=== PATIENT | male | born 1955 | race American Indian/Alaskan Native ===

== ENCOUNTER 2018-05-25 16:59 | Emergency (ER) | payer OTHER ==
[~2018-05-25] VITALS: Ht 180.3 cm; Wt 104.3 kg
--- OUTSIDE RECORDS SUMMARY | ~2018-05-25 | XMS | Encounter Summary ---
Demographics + + + | Address | [address] | | | [place] [address] | + + + | Home Phone | | + + + | Preferred Language | Unknown | + + + | Marital Status | Single | + + + | Confucianism Affiliation | Unknown | + + + | Race | Unknown | + + + | Ethnic Group | Unknown | + + + Author + + + | Author | [facility] | | | and Ljana | + + + | Organization | [facility] | | | and Ljana | + + + | Address | Unknown | + + + | Phone | Unavailable | + + + Support + + +---------+ + | Name | Relationship | Address | Phone | + + +---------+ + | Annelise Holcomb | ECON | Unknown | | + + +---------+ + Care Team Providers + +------+ + | Care Boat Diesel Motor Mechanic Name | Role | Phone | + +------+ + | Orly Villavicencio MD | PCP | | + +------+ + Encounter Details +--------+ + + + + | Date | Type | Department | Care Team | Description | +--------+ + + + + | 05/12/ | [facility] | [facility] | Orly Villavicencio | Chronic hepatitis C | | 2018 | Encounter | [facility] | [address] | without hepatic coma | | | | [address] [place] | [address] [place] | ([facility]); Alcoholism | | | | [place], [place] | [place] [address] | ([facility]); Ascites due | | | | [address] | [phone] | to alcoholic | | | | [phone] | | hepatitis | +--------+ + + + + Social [...] + +---------+ + | Alcohol Use | Drinks/We | oz/Week | Comments | | | ek | | | + + +---------+ + | Yes | 126 | 75.6 | quit since 04/06/15 | | | Cans of | | | | | beer | | | + + +---------+ + + + + | Sex Assigned at | Date Recorded | | | | + + + | Not on file | | + + + as of this encounter Medications at Time of Discharge + + + +---------+ + + | Medication | Sig. | Disp. | Refills | Start | End Date | | | | | | Date | | + + + +---------+ + + | furosemide (LASIX) | Take 1 tablet by | 60 | 1 | 05/12/20 | | | 40 mg tablet | mouth 2 times daily. | tablet | | 18 | | | | 2 tablets in the | | | | | | | morning. | | | | | + + + +---------+ + + | Lactulose 20 | Take 20 g by mouth 3 | 2000 mL | 1 | 05/02/20 | | | GM/30ML SOLN | times daily. or | | | 18 | | | | more to produce 2-3 | | | | | | | soft stools a day. | | | | | + + + +---------+ + + | LORazepam (ATIVAN) | take 1 tablet by | 20 | 0 | 04/17/20 | | | 1 mg tablet | mouth every 6 hours | tablet | | 18 | | | | if needed for | | | | | | | anxiety | | | | | + + + +---------+ + + | spironolactone | Take 1 tablet by | 90 | 0 | 05/12/20 | | | (ALDACTONE) 100 MG | mouth Daily. | tablet | | 18 | | | tablet | | | | | | + + + +---------+ + + as of this encounter Plan of Treatment +--------+---------+ + + + | Date | Type | Specialty | Care Team | Description | +--------+---------+ + + + | 06/01/ | Office | Internal Medicine | Orly Villavicencio | | | 2018 | Visit | | [address] | | | | | | [address] | | | | | | [place] [address] | | | | | | [phone] | | | | | | | | +--------+---------+ + + + as of this encounter Procedures + +--------+ + + + | Procedure Name | Priori | Date/Time | Associated Diagnosis | Comments | | | ty | | | | + +--------+ + + + | US ABDOMEN COMPLETE | Routin | 05/12/2018 | Chronic hepatitis | Results for this | | | e | 1242 PDT | C without hepatic | procedure are in the | | | | | coma (HCC) | results section. | | | | | Alcoholism (HCC) | | | | | | Ascites due to | | | | | | alcoholic hepatitis | | + +--------+ + + + in this encounter Results US Abdomen Complete (05/12/2018 1242) + + + | Narrative | Performed At | + + + | US ABDOMEN COMPLETE 05/12/2018 12:08 PM HISTORY: Alcoholic | [facility] | | hepatitis, ascites. COMPARISON: None. PROTOCOL: Trejo scale and | | | Doppler images of the abdomen. FINDINGS: Gallbladder: There is | | | no evidence for gallstones. The gallbladder wall measures 4.2 mm, | | | which is mildly thickened. Sonographic Sifuentes's sign is absent. The | | | common bile duct measures 3.8 mm, normal. Liver: There is | | | lobulated contour suggestive of cirrhosis. The right hepatic lobe | | | measures 17.3 cm, which is mildly enlarged. Pancreas: Not well | | | seen. Aorta: There is a normal appearance. This measures up to 3.3 | | | cm, which is mildly aneurysmal. Spleen: Parenchyma is normal. | | | The spleen measures 19.6 cm, which is enlarged. Right kidney: | | | Echotexture is normal with no evidence for stone or hydronephrosis. | | | The kidney measures 12.8 x 6.1 x 6.2 cm. Left kidney: Echotexture | | | is normal with no evidence for stone or hydronephrosis. The kidney | | | measures 11.6 x 7.5 x 6.1 cm. Venous structures: There is normal | | | color flow in the IVC, portal veins, hepatic veins, and splenic vein. | | | The main portal vein measures 1.1 cm, which is normal. There is a | | | small amount of scattered ascites. Partially imaged is a left pleural | | | effusion. IMPRESSION - Cirrhotic appearing liver that is mildly | | | enlarged. Splenomegaly likely phlebotomy services representative of portal venous | | | hypertension. Small ascites and partially imaged left pleural | | | effusion. Mild aneurysm of abdominal aorta measuring 3.3 cm. This | | | can be followed with ultrasound as clinically indicated. Mild | | | thickening involving gallbladder wall likely due to edema. | | | Dictated and Signed by: Brian Xavier MD Electronically signed: | | | 05/12/2018 2:07 PM | | + + + + + | Procedure Note | + + | Keegan, Rad Results In - 05/12/2018 1410 PDT US ABDOMEN COMPLETE 05/12/2018 12:08 PM | | | | HISTORY: Alcoholic hepatitis, ascites. | | | | COMPARISON: None. | | | | PROTOCOL: Trejo scale and Doppler images of the abdomen. | | | | FINDINGS: | | Gallbladder: There is no evidence for gallstones. The gallbladder wall measures | | 4.2 mm, which is mildly thickened. | | Sonographic Sifuentes's sign is absent. | | The common bile duct measures 3.8 mm, normal. | | | | Liver: There is lobulated contour suggestive of cirrhosis. The right hepatic | | lobe measures 17.3 cm, which is mildly enlarged. | | | | Pancreas: Not well seen. | | | | Aorta: There is a normal appearance. This measures up to 3.3 cm, which is mildly | | aneurysmal. | | | | Spleen: Parenchyma is normal. The spleen measures 19.6 cm, which is enlarged. | | | | Right kidney: Echotexture is normal with no evidence for stone or | | hydronephrosis. The kidney measures 12.8 x 6.1 x 6.2 cm. | | | | Left kidney: Echotexture is normal with no evidence for stone or hydronephrosis. | | The kidney measures 11.6 x 7.5 x 6.1 cm. | | | | Venous structures: There is normal color flow in the IVC, portal veins, hepatic | | veins, and splenic vein. The main portal vein measures 1.1 cm, which is normal. | | | | There is a small amount of scattered ascites. Partially imaged is a left pleural | | effusion. | | | | IMPRESSION - | | Cirrhotic appearing liver that is mildly enlarged. | | | | Splenomegaly likely phlebotomy services representative of portal venous hypertension. | | | | Small ascites and partially imaged left pleural effusion. 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 This can be followed with | | ultrasound as clinically indicated. | | | | Mild thickening involving gallbladder wall likely due to edema. | | | | Dictated and Signed by: Brian Xavier MD | | Electronically signed: 05/12/2018 2:07 PM | + + + +---------+ + + | Performing | Address | City/State/Zipcode | Phone Number | | Organization | | | | + +---------+ + + | [facility] | | | | + +---------+ + + in this encounter Visit Diagnoses + + | Diagnosis | + + | Chronic hepatitis C without hepatic coma (HCC) | + + | Alcoholism (HCC) | + + | Other and unspecified alcohol dependence, unspecified drinking behavior | + + | Ascites due to alcoholic hepatitis | + +"
--- OUTSIDE RECORDS SUMMARY | ~2018-05-25 | XMS | Encounter Summary ---
Demographics + + + | Address | [address] | | | [place] [address] | + + + | Home Phone | | + + + | Preferred Language | Unknown | + + + | Marital Status | Single | + + + | Yazdanism Affiliation | Unknown | + + + | Race | Unknown | + + + | Ethnic Group | Unknown | + + + Author + + + | Author | [facility] | | | and [place]jana | + + + | Organization | [facility] | | | [...] Team Providers + +------+ + | Care Biomass Power Plant Superintendent Name | Role | Phone | + +------+ + | Orly Villavicencio MD | PCP | | + +------+ + Reason for Visit +---------+ + | Reason | Comments | +---------+ + | Results | | +---------+ + Encounter Details +--------+ + + + + | Date | Type | Department | Care Team | Description | +--------+ + + + + | 05/02/ | Telephone | [facility] | Orly Villavicencio | Results | | 2018 | | [address] | [address] | | | | | [address] | [address] [place] | | | | | [place] [address] | [place] [address] | | | | | [phone] | [phone] | | | | | | | [...] + + + as of this encounter Plan of Treatment +--------+---------+ + + + | Date | Type | Specialty | Care Team | Description | +--------+---------+ + + + | 06/01/ | Office | Internal Medicine | Orly Villavicencio | | | 2017 | Visit | | [address] | | | | | | [address] | | | | | | [place] [address] | | | | | | [phone] | | | | | | | | +--------+---------+ + + + as of this encounter Results Comprehensive Metabolic Panel (05/12/2018 1322) + + + + + | Component | Value | Ref Range | Performed At | + + + + + | NA | 131 (L) | 136 - 149 mmol/L | [facility] | | | | | [facility] | | | | | CENTER - | | | | | LABORATORY | + + + + + | K | 3.2 (L) | 3.5 - 5.1 mmol/L | [facility] | | | | | [facility] | | | | | [facility] - | | | | | LABORATORY | + + + + + | CL | 93 (L) | 98 - 109 mmol/L | [facility] | | | | | [facility] | | | | | [facility] - | | | | | LABORATORY | + + + + + | CO2 | 30 | 24 - 31 mmol/L | [facility] | | | | | [facility] | | | | | [facility] - | | | | | LABORATORY | + + + + + | ANION GAP | 8 | 3 - 16 mmol/L | [facility] | | | | | [facility] | | | | | [facility] - | | | | | LABORATORY | + + + + + | GLUCOSE | 161 (H) | 70 - 109 mg/dL | [facility] | | | | | [facility] | | | | | [facility] - | | | | | LABORATORY | + + + + + | BUN | 4 (L) | 7 - 18 mg/dL | [facility] | | | | | [facility] | | | | | [facility] - | | | | | LABORATORY | + + + + + | Creatinine, | 0.90 | 0.60 - 1.30 mg/dL | [facility] | | Serum/Plasma | | | [facility] | | | | | C[facility] - | | | | | LABORATORY | + + + + + | eGFR if not | >60Comment: GLOMERULAR | >=60 mL/min/1.73m2 | [facility] | | [place] | FILTRATION | | [facility] | | | RATE,ESTIMATED mL/min | | CENTER - | | | /[id number] than 60 | | LABORATORY | | | Chronic kidney | | | | | disease,if found over a | | | | | 3-month period.Less than | | | | | 15 Kidney | | | | | failureFor | | | | | Americans,multiply the | | | | | calculated GFR by 1.21. | | | | | | | | + + + + + | CALCIUM | 8.3 | 8.3 - 10.5 mg/dL | [facility] | | | | | [facility] | | | | | CENTER - | | | | | LABORATORY | + + + + + | ALBUMIN | 2.6 (L) | 3.2 - 5.0 g/dL | [facility] | | | | | [facility] | | | | | CENTER - | | | | | LABORATORY | + + + + + | Bilirubin Total | 4.6 (H) | 0.1 - 1.5 mg/dL | [facility] | | | | | [facility] | | | | | [facility] - | | | | | LABORATORY | + + + + + | Total protein | 9.0 (H) | 6.0 - 7.8 g/dL | [facility] | | | | | [facility] | | | | | [facility] - | | | | | LABORATORY | + + + + + | AST | 100 (H) | 10 - 42 U/L | [facility] | | | | | [facility] | | | | | [facility] - | | | | | LABORATORY | + + + + + | ALT | 47 (H) | 6 - 45 U/L | [facility] | | | | | [facility] | | | | | [facility] - | | | | | LABORATORY | + + + + + | ALK PHOS | 75 | 40 - 110 U/L | [facility] | | | | | [facility] | | | | | [facility] - | | | | | LABORATORY | + + + + + | GLOBULIN | 6.4 (H) | 2.1 - 3.8 g/dL | [facility] | | | | | [facility] | | | | | [facility] - | | | | | LABORATORY | + + + + + | Albumin/Globulin | 0.4 (L) | 0.8 - 2.0 | [facility] | | ratio | | | [facility] | | | | | [facility] - | | | | | LABORATORY | + + + + + | BUN/CREA | 4.4 | | [facility] | | | | | [facility] | | | | | [facility] - | | | | | LABORATORY | + + + + + + + | Specimen | + + | Blood | + + + + + + + | Performing | Address | City/State/Zipcode | Phone Number | | Organization | | | | + + + + + | [facility] | [address] | [place], [place] | [phone] | | [facility] | | [address] | | | - LABORATORY | | | | + + + + + | [facility] | [address] | [place], [place] | | | [facility] | | [address] | | | - LABORATORY | | | | + + + + + in this encounter Visit Diagnoses + + | Diagnosis | + + | Chronic hepatitis C without hepatic coma (HCC) - Primary | + +"
--- OUTSIDE RECORDS SUMMARY | ~2018-05-25 | XMS | Encounter Summary ---
Demographics + + + | Address | [address] | | | [place] [address] | + + + | Home Phone | | + + + | Preferred Language | Unknown | + + + | Marital Status | Single | + + + | Buddhism Affiliation | Unknown | + + + | Race | Unknown | + + + | Ethnic Group | Unknown | + + + Author + + + | Author | [facility] | | | and [place]jana | + + + | Organization | [facility] | | | and [...] Team Providers + +------+ + | Care Kettle Hand Name | Role | Phone | + +------+ + | Orly Villavicencio MD | PCP | | + +------+ + Reason for Visit + + + | Reason | Comments | + + + | Appointment | | + + + Encounter Details +--------+ + + + + | Date | Type | Department | Care Team | Description | +--------+ + + + + | 05/02/ | Telephone | [facility] | Orly Villavicencio | Appointment | | 2017 | | [address] | [address] | | | | | [address] [place] | [address] [place] | | | | | [place] [address] | [place] [address] | | | | | [phone] | | | | | | | [...] | | | | | [place] [address] | | | | | | [phone] | | | | | | | | +--------+---------+ + + + as of this encounter Visit Diagnoses Not on filein this encounter"
--- OUTSIDE RECORDS SUMMARY | ~2018-05-25 | XMS | Clinical Summary ---
Demographics + + + | Address | [address] | | | [place] [address] | + + + | Home Phone | | + + + | Preferred Language | Unknown | + + + | Marital Status | Single | + + + | Gnosticist Affiliation | Unknown | + + + | Race | Unknown | + + + | Ethnic Group | Unknown | + + + Author + + + | Author | [facility] | | | and Ljana | + + + | Organization | [facility] | | | [...] Team Providers + +------+ + | Care Reel Slitter Name | Role | Phone | + +------+ + | Orly Villavicencio MD | PP | | + +------+ + Allergies No Known Allergies Current Medications + + + +---------+------+------+-------+ | Prescription | Sig. | Disp. | Refills | Star | End | Statu | | | | | | t | Date | s | | | | | | Date | | | + + + +---------+------+------+-------+ | LORazepam (ATIVAN) | take 1 tablet by | 20 | 0 | 08/2 | | Activ | | 1 mg tablet | mouth every 6 hours | tablet | | 7/20 | | e | | | if needed for | | | 18 | | | | | anxiety | | | | | | + + + +---------+------+------+-------+ | Lactulose 20 | Take 20 g by mouth 3 | 2000 mL | 1 | 04/22 | | Activ | | GM/30ML SOLN | times daily. or | | | /20 | | e | | | more to produce 2-3 | | | 18 | | | | | soft stools a day. | | | | | | + + + +---------+------+------+-------+ | spironolactone | Take 1 tablet by | 90 | 0 | 09/2 | | Activ | | (ALDACTONE) 100 MG | mouth Daily. | tablet | | 1/20 | | e | | tablet | | | | 18 | | | + + + +---------+------+------+-------+ | furosemide (LASIX) | Take 1 tablet by | 60 | 1 | 09/2 | | Activ | | 40 mg tablet | mouth 2 times daily. | tablet | | 1/20 | | e | | | 2 tablets in the | | | 18 | | | | | morning. | | | | | | + + + +---------+------+------+-------+ | triamcinolone | Apply thin film to | 28.4 g | 2 | 08/0 | 09/1 | Disco | | (KENALOG) 0.1% cream | affected area(s) | | | 3/20 | 1/20 | ntinu | | | three times daily | | | 16 | 18 | ed | | | for 2 weeks. Avoid | | | | | | | | face and groin areas | | | | | | + + + +---------+------+------+-------+ | Lactulose 20 | Take 20 g by mouth 3 | 2000 mL | 1 | 04/1 | 04/22 | Disco | | GM/30ML SOLN | times daily. or | | | 7/20 | 1/20 | ntinu | | | more to produce 2-3 | | | 18 | 18 | ed | | | soft stools a day. | | | | | | + + + +---------+------+------+-------+ | escitalopram | Take 1 tablet by | 30 | 0 | 08/2 | 04/22 | Disco | | (LEXAPRO) 20 mg | mouth Daily. | tablet | | /20 | 20 | ntinu | | tablet | | | | 18 | 18 | ed | + + + +---------+------+------+-------+ | furosemide (LASIX) | Take 1 tablet by | 30 | 1 | 03/23 | 04/22 | Disco | | 40 mg tablet | mouth Daily. | tablet | | 03/10 | 09/10 | ntinu | | | | | | 18 | 18 | ed | + + + +---------+------+------+-------+ | potassium chloride | Take 1 tablet by | 30 | 1 | 03/23 | 04/22 | Disco | | (KLOR-CON M20) 20 | mouth Daily. | tablet | | 03/10 | 09/10 | ntinu | | mEq ER tablet | | | | 18 | 18 | ed | + + + +---------+------+------+-------+ | furosemide (LASIX) | Take 1 tablet by | 30 | 1 | 04/22 | 04/22 | Disco | | 40 mg tablet | mouth Daily. | tablet | | 09/10 | 09/10 | ntinu | | | | | | 18 | 18 | ed | + + + +---------+------+------+-------+ | potassium chloride | Take 1 tablet by | 30 | 1 | 04/22 | 04/22 | Disco | | (KLOR-CON M20) 20 | mouth Daily. | tablet | | /20 | /20 | ntinu | | mEq ER tablet | | | | 18 | 18 | ed | + + + +---------+------+------+-------+ | furosemide (LASIX) | 2 tablets in the | 60 | 1 | 04/22 | 04/23 | Disco | | 40 mg tablet | morning. | tablet | | /20 | /20 | ntinu | | | | | | 18 | 18 | ed | + + + +---------+------+------+-------+ | spironolactone | Take 1 tablet by | 30 | 1 | 04/22 | 04/23 | Disco | | (ALDACTONE) 50 mg | mouth Daily. | tablet | | /20 | 1/20 | ntinu | | tablet | | | | 18 | 18 | ed | + + + +---------+------+------+-------+ Active Problems + + + | Problem | Noted Date | + + + | Chronic hepatitis C without hepatic coma (HCC) | 10/03/2017 | + + + | Alcoholic hepatitis without ascites | 04/28/2015 | + + + | Drug use | 04/28/2015 | + + + | Elevated LFTs | 04/28/2015 | + + + Encounters +--------+ + + + + | Date | Type | Specialty | Care Team | Description | +--------+ + + + + | 05/12/ | Hospital | | Orly Villavicencio | Chronic hepatitis C | | 2017 | Encounter | | MD Shimon | without hepatic coma | | | | | | (HCC); Alcoholism | | | | | | (HCC); Ascites due | | | | | | to alcoholic | | | | | | hepatitis | +--------+ + + + + | 05/12/ | Telephone | | Orly Villavicencio | Results | | 2017 | | | MD Shimon | | +--------+ + + + + | 05/02/ | Office | | Orly Villavicencio | Alcoholism (HCC) | | 2017 | Visit | | MD Shimon | (Primary Dx); | | | | | | Chronic hepatitis C | | | | | | without hepatic coma | | | | | | (HCC); Depression, | | | | | | unspecified | | | | | | depression type; | | | | | | Ascites due to | | | | | | alcoholic hepatitis | +--------+ + + + + | 05/02/ | Telephone | | Orly Villavicencio | Appointment | | 2017 | | | MD Shimon | | +--------+ + + + + | 05/02/ | Telephone | | Orly Villavicencio | Results | | 2017 | | | MD Shimon | | +--------+ + + + + | 04/12/ | Refill | | Orly Villavicencio | Medication Refill | | 2017 | | | MD Shimon | | [...] Filed Vital Signs + + + + | Vital Sign | Reading | Time Taken | + + + + | Blood Pressure | 140/76 | 05/02/2018835 PDT | + + + + | Pulse | 82 | 05/02/2018835 PDT | + + + + | Temperature | 37.1 C (98.7 F) | 05/02/2018835 PDT | + + + + | Respiratory Rate | 18 | 05/02/2018835 PDT | + + + + | Oxygen Saturation | 94% | 05/02/2018835 PDT | + + + + | Inhaled Oxygen | - | - | | Concentration | | | + + + + | Weight | 119.9 kg (264 lb 5.3 | 05/02/2018835 PDT | | | oz) | | + + + + | Height | 180.3 cm (5' 10.98") | 09/30/2017 1626 PST | + + + + | Body Mass Index | 36.89 | 05/02/2018835 PDT | + + + + Plan of Treatment +--------+---------+ + + + | Date | Type | Specialty | Care Team | Description | +--------+---------+ + + + | 06/01/ | Office | | Orly Villavicencio | | | 2017 | Visit | | MD [address] | | | | | | [address] | | | | | | [place] [address] | | | | | | [phone] | | | | | | | | +--------+---------+ + + + + + + + + | Health Maintenance | Due Date | Last Done | Comments | + + + + + | Vaccine: | | | | | Dtap/Tdap/Td (1 - | 7 | | | | Tdap) | | | | + + + + + | Vaccine: | | | | | Pneumococcal 19-64 | 7 | | | | (PPSV23 only) Medium | | | | | Risk (1 of 1 - | | | | | PPSV23) | | | | + + + + + | Colorectal Cancer | | | | | Screening | 8 | | | | (Colonoscopy) | | | | + + + + + | Vaccine: Zoster (1 | | | | | of 2) | 8 | | | + + + + + | Vaccine: Influenza | 09/01/201 | | | | (#1) | 8 | | | + + + + + | Hepatitis C | Completed | 05/12/2018, 05/12/2018, | | | Screening | | 05/02/2018, Additional history | | | | | exists | | + + + + + Procedures + +--------+ + + + | Procedure Name | Priori | Date/Time | Associated Diagnosis | Comments | | | ty | | | | + +--------+ + + + | COMPREHENSIVE | Routin | 05/12/2018 | Chronic hepatitis | Results for this | | METABOLIC PANEL | e | 1322 PDT | C without hepatic | procedure are in the | | | | | coma (HCC) | results section. | + +--------+ + [...] | + +--------+ + + + | AMMONIA | Routin | 05/02/2018 | Chronic hepatitis | Results for this | | | e | 0928 PDT | C without hepatic | procedure are in the | | | | | coma (HCC) | results section. | + +--------+ + + + | PROTIME INR | Routin | 05/02/2018 | Chronic hepatitis | Results for this | | | e | 0928 PDT | C without hepatic | procedure are in the | | | | | coma (HCC) | results section. | + +--------+ + + + | COMPREHENSIVE | Routin | 05/02/2018 | Chronic hepatitis | Results for this | | METABOLIC PANEL | e | 0928 PDT | C without hepatic | procedure are in the | | | | | coma (HCC) | results section. | + +--------+ + + + | CBC WITH | Routin | 05/02/2018 | Chronic hepatitis | Results for this | | DIFFERENTIAL | e | 0928 PDT | C without hepatic | procedure are in the | | | | | coma (HCC) | results section. | + +--------+ + + + from Last 3 Months Results Comprehensive Metabolic Panel (05/12/2018 1322)Only the most recent of 2 results within the time period is included. + + + + + | Component | Value | Ref Range | Performed At | + + + + + | NA | 131 (L) | 136 - 149 mmol/L | [facility] | | | [...] | >60Comment: GLOMERULAR | >=60 mL/min/1.73m2 | [facility] | | IV[place]IAN | FILTRATION | | [facility] | | | RATE,ESTIMATED mL/min | | CENTER - | | | /1.13w1Jlqr than 60 | | LABORATORY | | [...] 8.3 | 8.3 - 10.5 mg/dL | [facility] | | | | | [facility] | | | | | CENTER - | | | | | LABORATORY | + + + + + | ALBUMIN | 2.6 (L) | 3.2 - 5.0 g/dL | [facility] | | | [...] 75 | 40 - 110 U/L | [facility] | | | | | [facility] | | | | | CENTER - | | | | | LABORATORY | + + + + + | GLOBULIN | 6.4 (H) | 2.1 - 3.8 g/dL | [facility] | | | | | [facility] [...] + | BUN/CREA | 4.4 | | [facility] | | | | [facility] | | | | | CENTER - | | | | | LABORATORY | + + + + + + + | Specimen | + + | Blood | + + + + + + + | Performing | Address | City/State/Zipcode | Phone Number | | Organization | | | | + + + + + | [facility] | [address] | [place] | [phone] | | [facility] | | [address] | | | - LABORATORY | | | | + + + + + | [facility] | [address] | [place], [place] | | | [facility] | | [address] | | | - LABORATORY | | | | + + + + + US Abdomen Complete (05/12/2018 1242) + + [...] mildly | | | enlarged. Splenomegaly likely patient relations representative of portal venous | | | [...] enlarged. | | | | Splenomegaly likely patient relations representative of portal venous hypertension. | | [...] | | | + +---------+ + + Protime INR (05/02/2018 0928) + + + + + | Component | Value | Ref Range | Performed At | + + + + + | Protime | 16.6 (H) | 11.3 - 13.9 seconds | [facility] | | | | | [facility] | | | | | CENTER - | | | | | LABORATORY | + + + + + | INR | 1.36 (H)Comment: Usual | 0.90 - 1.10 | [facility] | | | Oral Anticoagulation | | [facility] | | | Range: 2.0 - | | CENTER - | | | 3.0High Level Oral | | LABORATORY | | | Anticoagulation Range: | | | | | 2.5 - 3.5 | | | + + + + + + + | Specimen | + + | Blood | + + + + + + + | Performing | Address | City/State/Zipcode | Phone Number | | Organization | | | | + + + + + | [facility] | [address] | [place] | [phone] | | [facility] | | [address] | | | - LABORATORY | | | | + + + + + | [facility] | [address] | [place] | | | [facility] | | [address] | | | - LABORATORY | | | | + + + + + CBC with Differential (05/02/2018927) + + + + + | Component | Value | Ref Range | Performed At | + + + + + | WBC | 4.8 | 4.0 - 11.0 K/uL | [facility] | | | | | [facility] | | | | | CENTER - | | | | | LABORATORY | + + + + + | RBC | 4.63 | 4.30 - 5.70 M/uL | [facility] | | | | | [facility] | | | | | CENTER - | | | | | LABORATORY | + + + + + | Hgb | 15.8 | 13.5 - 18.0 g/dL | [facility] | | | | | [facility] | | | | | CENTER - | | | | | LABORATORY | + + + + + | Hct | 45.4 | 40.0 - 51.0 % | [facility] | | | | | [facility] | | | | | CENTER - | | | | | LABORATORY | + + + + + | MCV | 98.1 | 83.0 - 101.0 fL | [facility] | | | | | [facility] | | | | | CENTER - | | | | | LABORATORY | + + + + + | MCH | 34.1 | 28.0 - 35.0 pg | [facility] | | | | | [facility] | | | | | CENTER - | | | | | LABORATORY | + + + + + | MCHC | 34.7 | 32.0 - 36.0 g/dL | [facility] | | | | | [facility] | | | | | CENTER - | | | | | LABORATORY | + + + + + | RDW-CV | 15.4 (H) | <15.0 % | [facility] | | | | | [facility] | | | | | CENTER - | | | | | LABORATORY | + + + + + | Platelet Count | 106 (L) | 140 - 440 K/uL | [facility] | | | | | [facility] | | | | | CENTER - | | | | | LABORATORY | + + + + + | MPV | 7.7 | fL | [facility] | | | | | [facility] | | | | | CENTER - | | | | | LABORATORY | + + + + + | % Neutrophils | 54.9 | 45.0 - 82.0 % | [facility] | | | | | [facility] | | | | | CENTER - | | | | | LABORATORY | + + + + + | % Lymphocytes | 23.2 | 20.0 - 45.0 % | [facility] | | | | | [facility] | | | | | CENTER - | | | | | LABORATORY | + + + + + | % Monocytes | 18.9 (H) | 4.0 - 12.0 % | [facility] | | | | | [facility] | | | | | CENTER - | | | | | LABORATORY | + + + + + | % Eosinophils | 2.1 | 0.0 - 5.0 % | [facility] | | | | | [facility] | | | | | CENTER - | | | | | LABORATORY | + + + + + | % Basophils | 0.9 | 0.0 - 1.0 % | [facility] | | | | | [facility] | | | | | CENTER - | | | | | LABORATORY | + + + + + | Absolute Neutrophils | 2.70 | 1.80 - 8.50 K/uL | [facility] | | | | | [facility] | | | | | CENTER - | | | | | LABORATORY | + + + + + | Absolute Lymphocytes | 1.10 | 0.60 - 3.20 K/uL | [facility] | | | | | [facility] | | | | | CENTER - | | | | | LABORATORY | + + + + + | Absolute Monocytes | 0.90 | 0.00 - 1.00 K/uL | [facility] | | | | | [facility] | | | | | CENTER - | | | | | LABORATORY | + + + + + | Absolute Eosinophils | 0.10 | 0.00 - 0.40 K/uL | [facility] | | | | | [facility] | | | | | CENTER - | | | | | LABORATORY | + + + + + | Absolute Basophils | 0.00 | 0.00 - 0.10 K/uL | [facility] | | | | [...] + | [facility] | [address] | [place] | [phone] | | [facility] | | [address] | | | - LABORATORY | | | | + + + + + | [facility] | [address] | [place] | | | [facility] | | [address] | | | - LABORATORY | | | | + + + + + Ammonia (05/02/2018927) + +--------+ + + | Component | Value | Ref Range | Performed At | + +--------+ + + | Ammonia | 41 (H) | 11 - 35 umol/L | [facility] | | | | | [facility] | | | | | CENTER - | | | | | LABORATORY | + +--------+ + + + + | Specimen | + + | Blood | + + + + + + + | Performing | Address | City/State/Zipcode | Phone Number | | Organization | | | | + + + + + | [facility] | [address] | [place] | [phone] | | [facility] | | [address] | | | - LABORATORY | | | | + + + + + | [facility] | [address] | [place], [place] | | | [facility] | | [address] | | | - LABORATORY | | | | + + + + + from Last 3 Months Insurance + +--------+ +--------+ +---------+ | Payer | Benefi | Subscriber | Type | Phone | Address | | | t Plan | ID | | | | | | / | | | | | | | Group | | | | | + +--------+ +--------+ +---------+ | [place] | MEDICA | [id number] | Medica | [phone] | | | [place] | | id | [id number] | | | | PLUS | | | | | + +--------+ +--------+ +---------+ + +--------+ +--------+ + + | Guarantor Name | Accoun | Relation to | Date | Phone | Billing Address | | | t Type | Patient | of | | | | | | | | | | + +--------+ +--------+ + + | HOSSEIN [facility]OL[facility] | Person | Self [birth year] | Home: | [address] | | [place] | [place] | | [phone] [place] [address] | | | alex | | | [phone] | | + +--------+ +--------+ + +
--- OUTSIDE RECORDS SUMMARY | ~2018-05-25 | XMS | Encounter Summary ---
Demographics + + + | Address | [address] | | | [place] [address] | + + + | Home Phone | | + + + | Preferred Language | Unknown | + + + | Marital Status | Single | + + + | Restorationism Affiliation | Unknown | + + + | Race | Unknown | + + + | Ethnic Group | Unknown | + + + Author + + + | Author | [facility] | | | and Ljana | + + + | Organization | [facility] | | | [...] Team Providers + +------+ + | Care Armature Repairer Name | Role | Phone | [...] + + | 05/12/ | Telephone | [facility] | Orly Villavicencio | Results | | 2017 | | [address] | [address] | | | | | [address] | [address] [place] | | | | | [place] [address] | [place] [address] | | | | | [phone] | | | | | | | [...] | | | | | | [address] | | | | | | [place] [address] | | | | | | [phone] | | | | | | | | +--------+---------+ + + + + +--------+ + + | Name | Priori | Associated Diagnoses | Order Schedule | | | ty | | | + +--------+ + + | Comprehensive Metabolic Panel | Routin | Hepatic cirrhosis, | 1 Occurrences | | | e | unspecified hepatic | starting 05/12/2018 | | | | cirrhosis type, | until 05/13/2019 | | | | unspecified whether | | | | | ascites present | | | | | (HCC) | | + +--------+ + + | XR Chest PA and Lateral | Routin | Hepatic cirrhosis, | Expected: | | | e | unspecified hepatic | 05/12/2018, Expires: | | | | cirrhosis type, | 05/12/2019 | | | | unspecified whether | | | | | ascites present | | | | | (HCC) | | + +--------+ + + | Alpha Fetoprotein, Tumor Marker | Routin | Hepatic cirrhosis, | 1 Occurrences | | | e | unspecified hepatic | starting 05/12/2018 | | | | cirrhosis type, | until 05/12/2019 | | | | unspecified whether | | | | | ascites present | | | | | (HCC) | | + +--------+ + + as of this encounter Visit Diagnoses + + | Diagnosis | + + | Hepatic cirrhosis, unspecified hepatic cirrhosis type, unspecified whether ascites | | present (HCC) - Primary | + +"
--- OUTSIDE RECORDS SUMMARY | ~2018-05-25 | XMS | Encounter Summary ---
Demographics + + + | Address | [address] | | | [place] [address] | + + + | Home Phone | | + + + | Preferred Language | Unknown | + + + | Marital Status | Single | + + + | Sikh Affiliation | Unknown | + + + | Race | Unknown | + + + | Ethnic Group | Unknown | + + + Author + + + | Author | [facility] | | | and Ljana | + + + | Organization | [facility] | | [...] Team Providers + +------+ + | Care Stapler Coil Unit Name | Role | Phone | + [...] + | 04/12/ | Refill | [facility] | Orly Villavicencio | Medication Refill | | 2017 | | [address] | [address] | | | | | [place] | [address] [facility] | | | | | [place] [address] | [place] [address] | | | | | [phone] | [phone] | | | | | | | [...] | | | | | [place] [address] | | | | | | [phone] | | | | | | | | +--------+---------+ + + + as of this encounter Visit Diagnoses Not on filein this encounter"
--- OUTSIDE RECORDS SUMMARY | ~2018-05-25 | XMS | Encounter Summary ---
Demographics + + + | Address | [address] | | | [place] [address] | + + + | Home Phone [...] Team Providers + +------+ + | Care Floor Polisher Name | Role | Phone | + [...] + | 05/02/ | Telephone | [facility] | Orly Villavicencio | Results | | 2018 | | [address] | [address] | | | | | [place] | [address] [place] | | | | | [place] [address] | [place] [address] | | | | | [phone] | [phone] | | | | | | | [...] | | | | | [place] [address] | | | | | | [phone] | | | | | | | | +--------+---------+ + + + as of this encounter Results Comprehensive Metabolic Panel (05/12/2018 1322) + + + + + | Component | Value | Ref Range | Performed At | + + + + + | NA | 131 (L) | 136 - 149 mmol/L | [facility] | | | | | [facility] | | | | | CENTER [...] ST. | | Serum/Plasma | | | [facility] | | | | | CENTER - | | | | | LABORATORY | + + + + + | eGFR if not | >60Comment: GLOMERULAR | >=60 mL/min/1.73m2 | [facility] | | COLOMBIAN | FILTRATION | | [facility] | | | RATE,ESTIMATED mL/min | | CENTER - | | | /1.86a5Aumg than 60 | | LABORATORY | | [...] 8.3 | 8.3 - 10.5 mg/dL | [facility] | | | | | [facility] | | | | | CENTER - | | | | | LABORATORY | + + + + + | ALBUMIN | 2.6 (L) | 3.2 - 5.0 g/dL | [facility] | | | | | [facility] | | | | | CENTER [...] + | [facility] | [address] | [place], [place] | [phone] | | [facility] | | [address] | | | - LABORATORY | | | | + + + + + | [facility] | [address] | [place], [place] | | | [facility] | | [address] | | | - LABORATORY | | | | + + + + + in this encounter Visit Diagnoses + + | Diagnosis | + + | Chronic hepatitis C without hepatic coma (HCC) - Primary | + +"
--- OUTSIDE RECORDS SUMMARY | ~2018-05-25 | XMS | Clinical Summary ---
Demographics + + + | Address | [address] | | | [place] [address] | + + + | Home Phone | | + + + | Preferred Language | Unknown | + + + | Marital Status | Single | + + + | Religion Affiliation | NON | + + + [...] | + + +---------+ + | Kacey MURPHY | ECON | Unknown | | + + +---------+ + Care Team Providers + +------+ + | Care Wellness Nurse Rn Name | Role | Phone | + +------+ + PP | Unavailable | + +------+ + Source Comments LELA is fully live on both [employer] and [facility]Patient[facility] Allergies No Known Allergies Current Medications + + +-------+---------+------+------+-------+ | Prescription | Sig. | Disp. | Refills | Star | End | Statu | | | | | | t | Date | s | | | | | | Date | | | + + +-------+---------+------+------+-------+ | | take one every 6-8 | [...] | | | | | + + +-------+---------+------+------+-------+ Active Problems + + + | Problem [...] | Yes | | | Not drinking currently, usually 12 pack a | | | | | night | + + +---------+ + + + + | Sex Assigned at | Date Recorded | | | | + + + | Not on file | | + + + Last Filed Vital Signs + + + + | Vital Sign | Reading | Time Taken | + + + + | Blood Pressure | - | - | + + + + | Pulse | 88 | 07/26/2007 12:52 PM PST | + + + + | Temperature | - | - | + + + + | Respiratory Rate | - | - | + + + + | Oxygen Saturation | - | - | + + + + | Inhaled Oxygen | - | - | | Concentration | | | + + + + | Weight | 88.5 kg (195 lb) | 07/26/2007 12:52 PM PST | + + + + | Height | 177.8 cm (5' 10") | 07/26/2007 12:52 PM PST | + + + + | Body Mass Index | 27.98 | 07/26/2007 12:52 PM PST | + + + + Plan of Treatment + + + + + | Health Maintenance | Due Date | Last Done | Comments | + + + + + | Pneumococcal (Adult) | | | | | (1 of 1 - PPSV23) | 7 | | | + + + + + | INFLUENZA VACCINE | | | | | (FLU SHOT) | 8 | | | + + + + + Results Not on filefrom Last 3 Months Insurance + +--------+ +--------+-------+---------+ | Payer | Benefi | Subscriber | Type | Phone | Address | | | t Plan | ID | | | | | | / | | | | | | | Group | | | | | + +--------+ +--------+-------+---------+ | [facility] | [facility] | [employer] | Agency | | | | SERVICE | | | | | | | | HEALTH | | | | | | | | | | | | | | SERVIC | | | | | | | E | | | | | + +--------+ +--------+-------+---------+ + +--------+ +--------+ + + | Guarantor Name | Accoun | Relation to | Date | Phone | Billing Address | | | t Type | Patient | of | | | | | | | | | | + +--------+ +--------+ + + | SACHI MURPHY | Person | Self [birth year] | Home: | [id number] | | | al/Fam | | 1955 | +- | [place] [address] | | | alex | | | [id number] | | + +--------+ +--------+ + + | SACHI MURPHY | Third | Self [birth year] | Home: | [id number] | | | [employer] Party | | 1955 | +- | [place] [address] | | | Liabil | | | [address] | | | | ity | | | | | + +--------+ +--------+ + +
--- OUTSIDE RECORDS SUMMARY | ~2018-05-25 | XMS | Encounter Summary ---
Demographics + + + | Address | [address] | | | [place] [address] | + + + | Home Phone | | + + + | Preferred Language | Unknown | + + + | Marital Status | Single | + + + | Spiritism Affiliation | Unknown | + + + | Race | Unknown | + + + | Ethnic Group | Unknown | + + + Author + + + | Author | [facility] | | | and Ljana | + + + | Organization | [facility] | | | [...] Team Providers + +------+ + | Care Product Support Consultant Name | Role | Phone | [...] + | 05/12/ | Telephone | [facility] | Orly Villavicencio | Results | | 2017 | | [address]IC[address] | MD [address] | | | | | [place] | [address] [place] | | | | | [place] [address] | [place] [address] | | | | | [phone] | [phone] | | | | | | | [...] | | | | | [place] [address] | | | | | | [phone] | | | | | | | [...]
--- OUTSIDE RECORDS SUMMARY | ~2018-05-25 | XMS | Encounter Summary ---
Demographics + + + | Address | [address] | | | [place] [address] | + + + | Home Phone [...] Team Providers + +------+ + | Care It Project Manager Name | Role | Phone | [...] + | 05/02/ | Telephone | [facility] | Orly Villavicencio | Appointment | | 2017 | | MEDICINE [address] | [address] | | | | | Street [place] | [address] [place] | | | | | [place] [address] | [place] [address] | | | | | [phone] | [phone] | | | | | | | [...] | | | | | [place] [address] | | | | | | [phone] | | | | | | | | +--------+---------+ + + + as of this encounter Visit Diagnoses Not on filein this encounter"
--- OUTSIDE RECORDS SUMMARY | ~2018-05-25 | XMS | Encounter Summary ---
Demographics + + + | Address | [address] | | | [place] [address] | + + + | Home Phone [...] Team Providers + +------+ + | Care Ending Machine Operator Name | Role | Phone [...] + + | 05/02/ | Office | [facility] | Orly Villavicencio | Alcoholism (HCC) | | 2018 | Visit | [address] | [address] | (Primary Dx); | | | | Street [place] | [address] | Chronic hepatitis C | | | | [place] [address] | [place] [address] | without hepatic coma | | | | [phone] | [phone] | (HCC); Depression, | | | | [...] + + + as of this encounter Last Filed Vital [...] | Height | - | - | + + + + | Body Mass Index | 36.89 | 05/02/2018835 PDT | + + + + in this encounter Instructions Patient Instructions - Nadja Khan CMA - 05/02/2018844 PDTCrisis Response Team - Suicide Hotline - Please do blood work today. Follow up in 1 month. in this encounter Progress Notes Orly Villavicencio MD - 05/02/2018844 PDTFormatting of this note may be different from the original. Chief Complaint Patient presents [...] in pain or any respiratory distress. HEENT: [place] conjunctivae, yellowish sclerae. No neck vein engorgement. [...] and medication adjustment. Spent 25 minutes in zths-xg-xwxq time with the patient, with greater than 50% of time spent in counseling and discussion of the above mentioned problems. He is advised to comply with recommendations and follow up. Return in about 4 weeks (around 05/30/2018) for follow up. IOrly MD, personally performed the services described in this documentation as sc ribed by Nadja Khan CMA, and the documentation is both accurate and complete. Encounter Note Electronically Signed by: Orly Villavicencio MD 05/02/2018 in this encounter Plan of Treatment +--------+---------+ + + + | Date | Type | Specialty | Care Team | Description | +--------+---------+ + + + | 06/01/ | Office | Internal Medicine | Orly Villavicencio | | | 2018 | Visit | | MD [address] | | | | | | [address] [place] | | | | | | [place] [address] | | | | | | [phone] | | | | | | | | +--------+---------+ + + + as of this encounter Results US Abdomen [...] mildly | | | enlarged. Splenomegaly likely dairy supplies sales representative of portal venous | | [...] enlarged. | | | | Splenomegaly likely dairy supplies sales representative of portal venous hypertension. | [...] | + +---------+ + + Ammonia (05/02/2018 0928) + +--------+ + + | Component | Value | Ref Range | Performed At | + +--------+ + + | Ammonia | 41 (H) | 11 - 35 umol/L | [facility] | | | | | [facility] | | | | | CENTER - | | | | | LABORATORY | + +--------+ + + + + | Specimen | + + | Blood | + + + + + + + | Performing | Address | City/State/Zipcode | Phone Number | | Organization | | | | + + + + + | [facility] | [address] | [place] | [phone] | | [facility] | | [address] | | | - LABORATORY | | | | + + + + + | [facility] | [address] | [place] | | | [facility] | | [address] | | | - LABORATORY | | | | + + + + + Protime INR (05/02/2018927) + + + + + | Component | Value | Ref Range | Performed At | + + + + + | Protime | 16.6 (H) | 11.3 - 13.9 seconds | [facility]. | | | | | [facility] | | | | | CENTER - | | | | | LABORATORY | + + + + + | INR | 1.36 (H)Comment: Usual | 0.90 - 1.10 | [facility] | | | Oral Anticoagulation | | [...] + | [facility] | [address] | [place] | [phone] | | [facility] | | [address] | | | - LABORATORY | | | | + + + + + | [facility] | [address] | [place] | | | [facility] | | [address] | | | - LABORATORY | | | | + + + + + Comprehensive Metabolic Panel (05/02/2018927) + + + + + | Component | Value | Ref Range | Performed At | + + + + + | NA | 130 (L) | 136 - 149 mmol/L | [facility] | | | | | [facility] | | | | | C[facility] - | | | | | LABORATORY | + + + + + | K | 3.6 | 3.5 - 5.1 mmol/L | [facility] | | | | | [facility] | | | | | CENTER - | | | | | LABORATORY | + + + + + | CL | 91 (L) | 98 - 109 [...] + + + | ANION GAP | 10 | 3 - 16 mmol/L | [facility] | | | | | [facility] | | | | | CENTER - | | | | | LABORATORY | + + + + + | GLUCOSE | 107 | 70 - 109 mg/dL | [facility] | | | | | [facility] | | | | | CENTER - | | | | | LABORATORY | + + + + + | BUN | 1 (L) | 7 - 18 mg/dL | [facility]. | | | | | [facility] | | | | | CENTER - | | | | | LABORATORY | + + + + + | Creatinine, | 0.69 | 0.60 - 1.30 mg/dL | [facility]. | | Serum/Plasma | | | [facility] | | | | | CENTER - | | | | | LABORATORY | + + + + + | eGFR if not | >60Comment: GLOMERULAR | >=60 mL/min/1.73m2 | [facility]. | | [place] | FILTRATION | | [facility] | | | RATE,ESTIMATED mL/min | | CENTER - | | | /1.53i3Jjqj than 60 | | LABORATORY | | [...] + + + + | CALCIUM | 8.5 | 8.3 - 10.5 mg/dL | [facility] [...] + + + | Bilirubin Total | 4.0 (H)Comment: This is | 0.1 - 1.5 mg/dL | [facility] | | | an appended report. | | [facility] | | | These results have been | | CENTER - | | | appended to a previously | | LABORATORY | | | preliminary verified | | | | | report. | | | + + + + [...] U/L | [facility] | | | an appended report. | | [facility] | | | These results have been | | CENTER - | | | appended to a previously | | LABORATORY | | | preliminary verified | | | | | report. | | | + + + + + | ALT | 54 (H)Comment: This is | 6 - 45 U/L | [facility] | | | an appended report. | | [facility] | | | These results have been | | CENTER - | | | appended to a previously | | LABORATORY | | | preliminary verified | | | | | report. | | | + + + + + | ALK PHOS | 104Comment: This is an | 40 - 110 U/L | [facility] | | | appended report. These | | [facility] | | | results have been | | CENTER - | | | appended to a previously | | LABORATORY | | | preliminary verified | | | | | report. | | | + + + + [...] + + + + | BUN/CREA | 1.4 | | [facility] | | | [...] + | [facility] | [address] | [place] | [phone] | | [facility] | | [address] | | | - LABORATORY | | | | + + + + + | [facility] | [address] | [place] | | | [facility] | | [address] | | | - LABORATORY | | | | + + + + + CBC with Differential (05/02/201828) + + + + + | Component [...] + | [facility] | [address] | [place], [place] | [phone] | | [facility] | | [address] | | | - LABORATORY | | | | + + + + + | [facility] | [address] | [place], [place] | | | [facility] | | [address] | | | - LABORATORY | | | | + + + + + in this encounter Visit Diagnoses + + | Diagnosis | + + | Alcoholism (HCC) - Primary | + + | Other and unspecified alcohol dependence, unspecified drinking behavior | + + | Chronic hepatitis C without hepatic coma (HCC) | + + | Depression, unspecified depression type | + + | Ascites due to alcoholic hepatitis | + +
--- OUTSIDE RECORDS SUMMARY | ~2018-05-25 | XMS | Encounter Summary ---
Demographics + + + | Address | [address] | | | [place] [address] | + + + | Home Phone [...] Team Providers + +------+ + | Care Flight Hostess Name | Role | Phone | + +------+ + | Orly Villavicencio MD | PCP | | + +------+ + Encounter Details +--------+ + + + + | Date | Type | Department | Care Team | Description | +--------+ + + + + | 05/12/ | [facility] | [facility] | Orly Villavicencio | Chronic hepatitis C | | 2018 | Encounter | MED CTR [facility] | MD [address] | without hepatic coma | | | | [address] [place] | [address] [place] | ([facility]); Alcoholism | | | | [place], [place] | [place] [address] | ([facility]); Ascites due | | | | [address] | [phone] | to alcoholic | | | | [phone] | | hepatitis | +--------+ + + [...] | | | | | | [address] | | | | | | [place] [address] | | | | | | [phone] | | | | | | | [...] mildly | | | enlarged. Splenomegaly likely member services representative of portal venous | | [...] enlarged. | | | | Splenomegaly likely member services representative of portal venous hypertension. | [...]
--- OUTSIDE RECORDS SUMMARY | ~2018-05-25 | XMS | Encounter Summary ---
Demographics + + + | Address | [address] | | | [place] [address] | + + + | Home Phone [...] Team Providers + +------+ + | Care Fender Repairer Name | Role | Phone | [...] | | | [address] [place] | [address] | | | | | [place] [address] | [place] [address] | | | | | [phone] | [phone] | | | | | | | [...] | | | | | [place] [address] | | | | | | [phone] | | | | | | | | +--------+---------+ + + + as of this encounter Visit Diagnoses Not on filein this encounter"
--- OUTSIDE RECORDS SUMMARY | ~2018-05-25 | XMS | Clinical Summary ---
Demographics + + + | Address | [address] | | | [place] [address] | + + + | Home Phone | | + + + | Preferred Language | Unknown | + + + | Marital Status | Single | + + + | Jew Affiliation | NON | + + + [...] Team Providers + +------+ + | Care Special Population Paraprofessional Name | Role | Phone | + +------+ + PP | Unavailable | + +------+ + Source Comments LELA is fully live on both [facility] and [facility] Allergies No Known Allergies Current Medications + [...] | | | + +--------+ +--------+-------+---------+ | [facility] | [facility] | xxxxxxxxx | Agency | | | [...] | Self | [birth year] | Home: | [address] | | | al/Fam | | 1955 | +- | [place] [address] | | | alex | | | [address] | | + +--------+ +--------+ + + | SACHI MURPHY | Third | Self | [birth year] | Home: | [address] | | | Libertarian | | 1955 | +- | [place] [address] | | | Liabil | | | [address] | | | | ity | | | | | + +--------+ +--------+ + +
--- OUTSIDE RECORDS SUMMARY | ~2018-05-25 | XMS | Encounter Summary ---
Demographics + + + | Address | [address] | | | [place] [address] | + + + | Home Phone [...] Team Providers + +------+ + | Care Audiometric Technician Name | Role | Phone | [...] + + | 05/02/ | Office | [facility] | Orly Villavicencio | Alcoholism (HCC) | | 2018 | Visit | [address]IC[address] | MD [address] | (Primary Dx); | | | | Street [place] | [address] | Chronic hepatitis C | | | | [place] [address] | [place] [address] | without hepatic coma | | | | [phone] | [phone] | (HCC); Depression, | | | | [...] CMA - 05/02/2018844 PDTCrisis Response Team - [phone] Suicide Hotline - Please do blood work [...] in pain or any respiratory distress. HEENT: [place] conjunctivae, yellowish sclerae. No neck vein engorgement. [...] and medication adjustment. Spent 25 minutes in olwu-av-qemy time with the patient, with greater than [...] | | | | | | [place] [address] | | | | | | [phone] | | | | | | | [...] mildly | | | enlarged. Splenomegaly likely insurance sales representative of portal venous | | [...] enlarged. | | | | Splenomegaly likely insurance sales representative of portal venous hypertension. | | | | Small ascites and partially imaged left pleural effusion. 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 This can be followed with | | ultrasound as clinically indicated. | | | | Mild thickening involving gallbladder wall likely due to edema. | | | | Dictated and Signed by: Brian Xaiver MD | | Electronically signed: 05/12/2018 2:07 [...] | | | | | [facility] | | | | | CENTER - | | | | | LABORATORY | + +--------+ + + + + | Specimen | + + | Blood | + + + + + + + | Performing | Address | City/State/Zipcode | Phone Number | | Organization | | | | + + + + + | [facility] | [address] | [place] | [phone] | | [facility] | | [address] | | | - LABORATORY | | | | + + + + + | [facility] | [address] | [place] | | | [facility] | | [address] | | | - LABORATORY | | [...] + | [facility] | [address] | [place] | [phone] | | [facility] | | [address] | | | - LABORATORY | | | | + + + + + | [facility] | [address] | [place] | | | [facility] | | [address] | | | - LABORATORY | | [...] (L) | 7 - 18 mg/dL | [facility]. | | | | | [facility] | | | | | CENTER - | | | | | LABORATORY | + + + + + | Creatinine, | 0.69 | 0.60 - 1.30 mg/dL | [facility]. | | Serum/Plasma | | | [facility] | | | | | CENTER - | | | | | LABORATORY | + + + + + | eGFR if not | >60Comment: GLOMERULAR | >=60 mL/min/1.73m2 | [facility]. | | [place] | FILTRATION | | [facility] | | | RATE,ESTIMATED mL/min | | CENTER - | | | /1.32f4Qqpf than 60 | | LABORATORY | | [...] + | [facility] | [address] | [place] | [phone] | | [facility] | | [address] | | | - LABORATORY | | | | + + + + + | [facility] | [address] | [place] | | | [facility] | | [address] | | | - LABORATORY | | [...] + | [facility] | [address] | [place], [place] | [phone] | | [facility] | | [address] | | | - LABORATORY | | | | + + + + + | [facility] | [address] | [place], [place] | | | [facility] | | [address] | | | - LABORATORY | | [...]
--- OUTSIDE RECORDS SUMMARY | ~2018-05-25 | XMS | Clinical Summary ---
Demographics + + + | Address | [address] | | | [place] [address] | + + + | Home Phone | | + + + | Preferred Language | Unknown | + + + | Marital Status | Single | + + + | Taoist Affiliation | Unknown | + + + [...] Team Providers + +------+ + | Care Document Control Coordinator Name | Role | Phone | [...] + | 05/02/ | Office | | rOly Villavicencio | Alcoholism (HCC) | | 2017 [...] | | | | | | [place] [address] | | | | | | [phone] | | | | | | | [...] >=60 mL/min/1.73m2 | [facility] | | [place] | FILTRATION | | [facility] | | | RATE,ESTIMATED mL/min | | CENTER - | | | /1.33s9Kyfp than 60 | | LABORATORY | | [...] + | BUN/CREA | 4.4 | | [facility] | | | | | [facility] | | | | | CENTER [...] [address] | [place] | [phone] | | [facility] | | [address] | | | - LABORATORY | | | | + + + + + | [facility] | [address] | [place], [place] | | | [facility] | | [address] | | | - LABORATORY | | [...] | | | enlarged. Splenomegaly likely medical sales representative of portal venous | | [...] | | | | Splenomegaly likely medical sales representative of portal venous hypertension. | [...] (H)Comment: Usual | 0.90 - 1.10 | [facility] | | | Oral Anticoagulation | [...] + | [facility] | [address] | [place] | [phone] | | [facility] | | [address] | | | - LABORATORY | | | | + + + + + | [facility] | [address] | [place] | | | [facility] | | [address] | | | - LABORATORY | | | | + + + + + CBC with Differential (05/02/2018927) + + + + + | Component | Value | Ref Range | Performed At | + + + + + | WBC | 4.8 | 4.0 - 11.0 K/uL | [facility] | | | | | [facility] | | | | | CENTER [...] [facility] | | | | | [facility] | | | | | CENTER [...] [address] | [place] | [phone] | | [facility] | | [address] | | | - LABORATORY | | | | + + + + + | [facility] | [address] | [place] | | | [facility] | | [address] | | | - LABORATORY | | | | + + + + + Ammonia (05/02/2018927) + +--------+ + + | Component | Value | Ref Range | Performed At | + +--------+ + + | Ammonia | 41 (H) | 11 - 35 umol/L | [facility] | | | | | [facility] | | | | | CENTER - | | | | | LABORATORY | + +--------+ + + + + | Specimen | + + | Blood | + + + + + + + | Performing | Address | City/State/Zipcode | Phone Number | | Organization | | | | + + + + + | [facility] | [address] | [place] | [phone] | | [facility] | | [address] | | | - LABORATORY | | | | + + + + + | [facility] | [address] | [place], [place] | | | [facility] | | [address] | | | - LABORATORY | | [...] +---------+ | [place] | MEDICA | [id number] | Medica | [phone] | | [...] | Self | [birth year] | Home: | [address] | | [place] | al/King | | [phone] | [phone] | [place] [address] | | | alex | | | [phone] | | + +--------+ +--------+ + +
[2018-05-25] MEDS ORDERED: ONDANSETRON ODT8 MG PO (18:44)
--- NOTE | 2018-05-26 14:35 | EKG ---
[facility] [address] [place], [place] [address] Signed Normal sinus rhythm Prolonged QT Abnormal ECG No previous ECGs available Confirmed by NINFA SNEED DO ([id number]) on 05/26/2018 2:34:56 PM Electronically Signed By: NINFA SNEED DO 05/26/18 1435 PATIENT NAME: KATHERINESACHI Fortino Electrocardiogram DATE OF : 59 PHYSICIAN: NINFA SNEED DO REPORT #: [id number] REPORT IS CONFIDENTIAL AND NOT TO BE RELEASED WITHOUT AUTHORIZATION
== END 2018-05-25 18:59 | disposition home or self-care (01) ==
LOC: ED 16:59
DX: R11.2 Nausea with vomiting, unspecified (principal); F10.20 Alcohol dependence, uncomplicated; F17.200 Nicotine dependence, unspecified, uncomplicated
CPT/HCPCS: 80053; 82150; 83690; 85025; 85610; 85730; 93005; 93010; 96361; 96374; 99283; J2405; J7030

== ENCOUNTER 2019-10-23 17:22 | Inpatient (IN) | payer OTHER ==
[~2019-10-23] VITALS: Ht 180.3 cm; Wt 104.3 kg
[~2019-10-23 17:22] MED LIST: ONDANSETRON ODT8 MG PO
[2019-10-23] MEDS ORDERED: FUROSEMIDE40 MG PO (17:40)
[2019-10-23] MEDS ORDERED: LORAZEPAM1 MG PO (17:41)
[2019-10-23] MEDS ORDERED: NORTRIPTYLINE H25 MG PO (17:41)
--- NOTE | 2019-10-23 20:55 | NUR ---
PT ADMITTED TO ROOM 128 AT THIS TIME, 4 TO 5 PERSON ASSISTANCED NEEDED TO MOVE FROM STREACHER TO BED. PT REMAINED ON BIPAP DURING THIS TIME. PT DID NOT LIKE BIPAP "MAKES MY LUNG HURT". ADMIT PROCESS COMPLETED THE BEST INSPECTOR ALIGNING COULD, PT POOR AT ANSWERING QUESTIONS.
--- NOTE | 2019-10-23 21:00 | NUR ---
PT ADMITTED, NOT DOING WELL WITH RESP RATE AND THE ABILITY TO MAINTAINE SPO2. DR SNEED AND RT PRESENT. PT REMAINED ON BIPAP, BUT DID NOT LIKE IT. THEN WENT TO HIGH FLOW (VAPOTHERM) PT TOLERATED THIS BETTER, BUT CONTIOUED TO NOT MAINTAINE HIS SPO2. AT TIMES HE WOULD DIP SOWN TO THE 80"S. ENCOURAGE PT TO WEAR BIPAP, BUT HE LIKED VAPO THERM. ONCE PT SETTLED AND CLEANED UP FROM BM AND WARD CATHETER PLACEMENT PT WAS ABLE TO REST SOME. PT URINE IS FRED AND THICK IN APPERANCE. 2130: PT PLACED ON GREEN SHEET TO HELP STAFF WITH MOVEMENT ON THE BED. FOUR STAFF NEED TO COMPLET THIS TASK. PT REPOSITIONED IN BED. PT GIVEN THIAMINE IVP AND THEN ADDITIONAL ABX'S THAT HAD BEEN ORDERED. PT C/O BEING SWEATEY AND HOT AT TIMES TEMP CHECKED 97.8 AT TIMES TO 97.6. AT ONE POINT DR FREEMAN ORDERED LEVAPHODE DRIP FOR DECREASED SBP, BUT REMAINED OFF DUE TO INPROVEMENT OF BP RELATED TO INCREASE ADGATION DUE TO CIWA SCORE. 22:00 ADDITIONAL ABX'S STARTED AN ADDITIONAL IV SITE OBTAINED. 22:53 PT HAVING HALLUNATIONS ABOUT A LIGHT ON THE FLOOR AND BEGAIN PULLING AT TUBES AND LINES. AT THIS TIME PT WAS MEDICATED WITH VALIUM 10MG IVP FOR A CIWA 19. DR SNEED NOTIFIED DUE TO PT WAS PLACED BACK ONTO BIPAP. PT HAD COUGHED RED AND BROWN THICK CHUNKEY SPUTUM. PT REPEAT LACTIC ACID WAS 6.4 FROM 20:30 SAMPLE THAT WAS OBTAINED. PT UNABLE TO MAINTAINE HIS SPO2 ON BIPAP AFTER SOME TIME. HAING TO SUCTION PT DUE TO THE AMOUNTS OF SPUTUM. PT AGREED TO BEING INTUBATED AT THIS TIME. HIS WORK OF BREATHING INCREASED. 23:00 GRAVEL SCREENER NOTIFED AND DR SNEED IN THE DEPARTMENT AT THIS TIME GRIPPER INSTALLER GLENYS FLORES ARRIVED AND PT WAS INTUBATED AT 23:31 WITH A 8.0 ET TUBE AND 22 TEETH. OG PLACED BY RN AND THEN CHEST XRAY COMPLETED. ET TUBE NEED TO REPOSITIONED AND THEN IT WAS 24 AT THE TEETH. 00:05 PROPOFOL DRIP STATRED AT THIS TIME 5MCG/KG/MIN, LEVOPHED DRIP ON STANDBY ALSO AT THIS TIME. 00:15 OG PLACED GREEN DRAINAGE NOTED AND ABOUT 400MLS RETURNED. THIS WAS PLACED ON LIWS. SUNCTIONS FROM ET TUBE RED/JORGE THINCK CHUNKEY SPUTUM NOTED IN LINE AND CANSTER. DR SNEED REMAINS IN THE UNIT. OO:20 100MCG FENTYAL IVP GIVEN PER DR SNEED, PT FIGHTING THE ET TUBE. 00:35 PROPOFOL DRIP INCREASED TO 30MCG/KG/MIN. OO:42 [facility] CREW HERE AT THIS TIME. REPORT GIVEN TO GLENYS LUKE. ABG OBTAINED ALSO AT THIS TIME. ASSISTED CREW TO CHEMICAL ENGINEERING PROFESSOR IV TUBING AND PLACE PT ON THERE EQUIPEMENT. 01:00 USED CEILING LIFT TO MOVE PT FROM BED TO STREACHER. 01:25 CALLED REPORT TO TAZ'S IN THE ICU TRAVIS LUKE ALL QUESTIONS ANSERED AND THAT IF HE HAD ADDITIONAL QUESTION HE COULD CALL. [facility] LEFT AT 01:30 FROM [facility].
--- NOTE | 2019-10-23 22:06 | NUR ---
PT OFF BIPAP AT THIS TIME, AND WAS PLACED ON VAPO THERM. PT FEELS BETTER WITH THIS AND STATES "MY LUNGS DO NOT HURT"
--- NOTE | 2019-10-23 23:04 | NUR ---
PT TALKING TO SELF AND AT THE LIGHT ON THE FLOOR, PULLING AT LINES, PT C/O BEING HOT NO FEVER NOTED AT THIS TIME, BUT PT IS SWEATING COOL WASHCLOTH TO HEAD. PT SPO2 DOWN TO THE 80'S ON HIGH FLOW, AND THEN PLACED ON BIPAP AND MEDICATED WITH 10MG VALIUM FOR A CIWA OF 19. PT UPSET WITH LINES AND TUBES, WANTING THINGS OUT AND TO GET UP AT TIMES. PT UNABLE TO GET OUT OF BED, BUT PULLING ON IV LINES. IS REDIRECTABLE, BUT UNABLE TO MAINTAINE SAT'S. DR SNEED NOTIFIED AND RT PRESENT. DR SNEED WILL COME DOWN. ALSO PT SPUTUM IS RED AND THICK,
--- NOTE | 2019-10-24 01:40 | NUR ---
PLEASE SEE PAPER CHART FOR ALL VS TAKEN WHILE PT WAS IN ICU.
--- NOTE | 2019-10-24 13:43 | EKG ---
[facility] [address] [place], [place] [address] Signed Sinus tachycardia Otherwise normal ECG When compared with ECG of 25-MAY-2018 17:21, No significant change was found Confirmed by NINFA SNEED DO ([id number]) on 10/24/2019 1:42:57 PM Electronically Signed By: NINFA SNEED DO 10/24/19 1343 PATIENT NAME: SACHI MURPHY [place] Electrocardiogram DATE OF : 59 PHYSICIAN: NINFA SNEED DO REPORT #: [id number] REPORT IS CONFIDENTIAL AND NOT TO BE RELEASED WITHOUT AUTHORIZATION
== END 2019-10-24 01:30 | disposition short-term general hospital (02) | DRG 871 ==
LOC: ED 17:22 → CCU 20:33
PROVIDERS: ADMIT Student in an Organized Health Care Education/Training Program
PROC: 0BH17EZ Insertion of Endotracheal Airway into Trachea, Via Natural or Artificial Opening (ICD-10-PCS; principal; 2019-10-23)
PROC: 5A09357 Assistance with Respiratory Ventilation, Less than 24 Consecutive Hours, Continuous Positive Airway Pressure (ICD-10-PCS; 2019-10-23)
DX: A41.9 Sepsis, unspecified organism (principal); J13 Pneumonia due to Streptococcus pneumoniae; J96.01 Acute respiratory failure with hypoxia; R44.3 Hallucinations, unspecified; E87.2 Acidosis; E87.1 Hypo-osmolality and hyponatremia; R65.20 Severe sepsis without septic shock; F17.210 Nicotine dependence, cigarettes, uncomplicated; F10.10 Alcohol abuse, uncomplicated; K70.10 Alcoholic hepatitis without ascites; D69.6 Thrombocytopenia, unspecified; Z79.899 Other long term (current) drug therapy
CPT/HCPCS: 31500; 36415; 36600; 51702; 71045; 80048; 80053; 82803; 83605; 83735; 83880; 84484; 85025; 85610; 87502; 93005; 93010; 94002; 94640; 94660; 94799; 96361; 96365; 96375; 99285-25; 99406; J0330; J0456; J0692; J2543; J3360; J3370; J3411; J7030; J7060; J7070; J7121

== ENCOUNTER 2020-04-16 11:41 | Inpatient (IN) | payer OTHER ==
[~2020-04-16] VITALS: Ht 180.3 cm; Wt 117.9 kg
--- OUTSIDE RECORDS SUMMARY | ~2020-04-16 | XMS | Encounter Summary ---
Demographics + + + | Address | [address] | | | [place] [address] | + + + | Home Phone | | + + + | Preferred Language | Unknown | + + + | Marital Status | Single | + + + | Lutheran Affiliation | Unknown | + + + | Race | or | + + + | Ethnic Group | Not or | + + + Author + + + | Author | [facility] | | | and [place] | + + + | Organization | [facility] | | | and [place] | + + + | Address | Unknown | + + + | Phone | Unavailable | + + + Support + + +---------+ + | Name | Relationship | Address | Phone | + + +---------+ + | Patricia Holcomb | ECON | Unknown | | + + +---------+ + Care Team Providers + +------+ + | Care Social Science Analyst Name | Role | Phone | + +------+ + | Orly Villavicencio MD | PCP | | + +------+ + Reason for Referral Evaluate & Treat (Routine) +--------+ + + + + + | Status | Reason | Specialty | Diagnoses / | Referred By | Referred To | | | | | Procedures | Contact | Contact | +--------+ + + + + + | Closed | Specialty | Gastroenterol | Diagnoses | [facility] | | Services | ogy | Hepatitis C | Orly Huff | Gastroenterol | | | Required | | virus | MD Shimon | ogy [address] | | | | | infection | [address] | [address] | | | | | without | [place] | [address] [place] | | | | | hepatic | [place], [place] | [place] | | | | | coma, | [address] | [address] | | | | | unspecified | Phone: | Phone: | | | | | chronicity | [phone] | [phone] | | | | | Alcoholic | Fax: | Fax: | | | | | liver | [phone] | [phone] | | | | | disease | | | | | | | (HCC) | | | +--------+ + + + + + Reason for Visit +---------+--------+ + | Reason | Onset | Comments | | | Date | | +---------+--------+ + | Results | 04/23/ | | | | 2014 | | +---------+--------+ + Encounter Details +--------+ + + + + | Date | Type | Department | Care Team | Description | +--------+ + + + + | 04/23/ | Telephone | [facility] | Orly Villavicencio | Results | | 2014 | | MEDICINE [address] | [address] | | | | | [place], | [place] | | | | | [place] [address] | [place] [address] | | | | | [phone] | [phone] | | | | | | | | +--------+ + + + + Social History + + + +--------+------+ | Tobacco Use | Types | Packs/Day | Years | Date | | | | | Used | | + + + +--------+------+ | Current Every Day | Cigarettes | 0.5 | 45 | | | Smoker | | | | | + + + +--------+------+ + +---+---+---+ | Smokeless Tobacco: | | | | | Never Used | | | | + +---+---+---+ + + +---------+ + | Alcohol Use | Drinks/Week | oz/Week | Comments | + + +---------+ + | Yes | 126 Cans of beer | 126.0 | | + + +---------+ + + + + | Sex Assigned at | Date Recorded | | | | + + + | Not on file | | + + + documented as of this encounter Miscellaneous Notes Telephone Encounter - Orly Villavicencio MD - 04/23/2015 3:45 PM PDTTalked with Gwen bourne (girlfriend) about his positive test for Hep A and C. Advised further blood tests for this, including HIV. Also advised a follow up with the locums at the end of the month. She will schedule this. Advised GI referral for his liver disease. She agrees to the above plan and will relay this to Hossein. documented i n this encounter Plan of Treatment + + +--------+ + + | Name | Type | Priori | Associated Diagnoses | Order Schedule | | | | ty | | | + + +--------+ + + | * [facility] [place] | Outpatient | Routin | Hepatitis C virus | Ordered: 04/23/2015 | | Gastroenterology - | Referral | e | infection without | | | AMB Referral | | | hepatic coma, | | | | | | unspecified | | | | | | chronicity | | | | | | Alcoholic liver | | | | | | disease (HCC) | | + + +--------+ + + documented as of this encounter Results Hepatitis C RNA, Quant, NAAT (03/26/2016 11:21 AM PDT) + + + + + + | Component | Value | Ref Range | Performed | Pathologist | | | | | At | Signature | + + + + + + | HCV Viral | 6.0 (A) | NOTDET Log | REFERENCE | | | Load, log10 | | IU/mL | [facility] | | + + + + + + | HCV Viral | [id number] (A)Comment: | NOTDET IU/mL | REFERENCE | | | Load | Reportable range HCV RNA | | [facility] | | | | 1.2 to 8.0 Log IU/mL | | | | | | (15 to | | | | | | 100,000,000IU/mL). | | | | | | This assay was performed | | | | | | using the FDA approved | | | | | | Leida | | | | | | COBASAmpliPrep/CHELO | | | | | | TaqMan HCV Test, v2.0. | | | | | | The CHELO | | | | | | AmpliPrep/COBASTaqMan | | | | | | HCV Test, v2.0 is not | | | | | | intended for use as a | | | | | | screening test forthe | | | | | | presence of HCV in blood | | | | | | or blood | | | | | | products.Testing | | | | | | Performed: [facility], [address] | | | | | [address] [place] | | | | | | [address] | | | | + + + + + + + + | Specimen | + + | Blood specimen | | (specimen) | + + + + + + + | Performing | Address | City/State/Zipcode | Phone Number | | Organization | | | | + + + + + | [facility] | [address] | [place] [address] | [phone] | + + + + + HIV 1 AND 2 Ab Screen (Reflexive) (03/26/2016 11:21 AM PDT) + + + + + + | Component | Value | Ref Range | Performed | Pathologist | | | | | At | Signature | + + + + + + | HIV 1 and 2 | See CommentsComment: Non | NR | REFERENCE | | | Ab | ReactiveThe Non | | [facility] | | | | Reactive HIV 1/2 | | | | | | antibody result | | | | | | indicates that | | | | | | antibodies toHIV 1/2 | | | | | | have not been detected | | | | | | in this specimen. This | | | | | | result does notpreclude | | | | | | previous exposure or | | | | | | infection.Please note | | | | | | that on May 04, | | | | | | 2015, the 12HIVR test | | | | | | code for 3rdGeneration | | | | | | HIV testing will no | | | | | | longer be orderable.[facility] | | | | | | will transition all HIV | | | | | | screening to an HIV 1/2 | | | | | | | | | | | | Antigen/Antibodycombinat | | | | | | ion assay. Samples | | | | | | Reactive for the HIV 1/2 | | | | | | | | | | | | Antigen/Antibodycombinat | | | | | | ion assay will then | | | | | | reflex to the HIV 1/2 | | | | | | AntibodyDifferentiation | | | | | | Supplemental assay. At | | | | | | that time, use the order | | | | | | [id number] to order | | | | | | this test.Any order | | | | | | received for the 12HIVR | | | | | | test code will be | | | | | | converted to thenew | | | | | | HIV12P order code. For | | | | | | more information, you | | | | | | may go takokatw.[employer] to | | | | | | access literature | | | | | | regarding the change in | | | | | | HIVmethodologies. You | | | | | | may also contact [facility] | | | | | | Client Services | | | | | | foradditional | | | | | | information.Testing | | | | | | Performed: [facility], [address] | | | | | [address], [place] | | | | | | [address] | | | | + + + + + + + + | Specimen | + + | Blood specimen | | (specimen) | + + + + + + + | Performing | Address | City/State/Zipcode | Phone Number | | Organization | | | | + + + + + | [facility] | [address] | [place] [address] | [phone] | + + + + + Ammonia (03/26/2016 11:21 AM PDT) + +--------+ + + + | Component | Value | Ref Range | Performed | Pathologist | | | | | At | Signature | + +--------+ + + + | Ammonia | 57 (H) | 11 - 35 umol/L | [facility] | | | | | | [facility] | | | | | | [facility] | | | | | | C[facility] - | | | | | | LABORATORY | | + +--------+ + + + + + | Specimen | + + | Blood | + + + + + + + | Performing | Address | City/State/Zipcode | Phone Number | | Organization | | | | + + + + + | [facility] | [address] | [place] | [phone] | | [facility] | | [address] | | | - LABORATORY | | | | + + + + + Comprehensive Metabolic Panel (03/26/2016 11:21 AM PDT) + + + + + + | Component | Value | Ref Range | Performed | Pathologist | | | | | At | Signature | + + + + + + | Na | 136 | 136 - 149 | [facility] | | | | | mmol/L | [facility] | | | | | | MEDICAL | | | | | | CENTER - | | | | | | LABORATORY | | + + + + + + | K | 3.5 | 3.5 - 5.1 | [facility] | | | | | mmol/L | [facility] | | | | | | MEDICAL | | | | | | CENTER - | | | | | | LABORATORY | | + + + + + + | Cl | 104 | 98 - 109 mmol/L | [facility] | | | | | | [facility] | | | | | | MEDICAL | | | | | | CENTER - | | | | | | LABORATORY | | + + + + + + | CO2 | 23 (L) | 24 - 31 mmol/L | [facility] | | | | | | [facility] | | | | | | MEDICAL | | | | | | CENTER - | | | | | | LABORATORY | | + + + + + + | Anion Gap | 9 | 3 - 16 mmol/L | [facility] | | | | | | [facility] | | | | | | MEDICAL | | | | | | CENTER - | | | | | | LABORATORY | | + + + + + + | Glucose | 170 (H) | 70 - 109 mg/dL | [facility] | | | | | | [facility] | | | | | | MEDICAL | | | | | | CENTER - | | | | | | LABORATORY | | + + + + + + | BUN | 10 | 7 - 18 mg/dL | [facility] | | | | | | [facility] | | | | | | MEDICAL | | | | | | CENTER - | | | | | | LABORATORY | | + + + + + + | Creatinine | 0.93 | 0.60 - 1.30 | [facility] | | | | | mg/dL | [facility] | | | | | | MEDICAL | | | | | | CENTER - | | | | | | LABORATORY | | + + + + + + | eGFR, | >60Comment: GLOMERULAR | >=60 | [facility] | | | non- | FILTRATION | mL/min/1.73m2 | [facility] | | | [place] | RATE,ESTIMATED | | MEDICAL | | | | mL/min/1.68s2Qweg than | | CENTER - | | | | 60 Chronic kidney | | LABORATORY | | | | disease,if found over a | | | | | | 3-month period.Less than | | | | | | 15 Kidney failureFor | | | | | | | | | | | | Americans,multiply the | | | | | | calculated GFR by 1.21. | | | | | | | | | | + + + + + + | Calcium | 9.2 | 8.3 - 10.5 | [facility] | | | | | mg/dL | [facility] | | | | | | MEDICAL | | | | | | CENTER - | | | | | | LABORATORY | | + + + + + + | Albumin | 3.4 | 3.2 - 5.0 g/dL | [facility] | | | | | | [facility] | | | | | | MEDICAL | | | | | | CENTER - | | | | | | LABORATORY | | + + + + + + | Bilirubin | 1.8 (H) | 0.1 - 1.5 mg/dL | [facility] | | | Total | | | [facility] | | | | | | MEDICAL | | | | | | CENTER - | | | | | | LABORATORY | | + + + + + + | Total | 8.3 (H) | 6.0 - 7.8 g/dL | [facility] | | | Protein | | | [facility] | | | | | | MEDICAL | | | | | | CENTER - | | | | | | LABORATORY | | + + + + + + | AST | 142 (H) | 10 - 42 U/L | [facility] | | | | | | [facility] | | | | | | MEDICAL | | | | | | CENTER - | | | | | | LABORATORY | | + + + + + + | ALT | 112 (H) | 6 - 45 U/L | [facility] | | | | | | [facility] | | | | | | MEDICAL | | | | | | CENTER - | | | | | | LABORATORY | | + + + + + + | Alkaline | 126 (H) | 40 - 110 U/L | [facility] | | | Phosphatase | | | [facility] | | | | | | MEDICAL | | | | | | CENTER - | | | | | | LABORATORY | | + + + + + + | Globulin | 4.9 (H) | 2.1 - 3.8 g/dL | [facility] | | | | | | [facility] | | | | | | MEDICAL | | | | | | CENTER - | | | | | | LABORATORY | | + + + + + + | Albumin/Masha | 0.7 (L) | 0.8 - 2.0 | [facility] | | | bulin Ratio | | | [facility] | | | | | | MEDICAL | | | | | | CENTER - | | | | | | LABORATORY | | + + + + + + | BUN/Creatin | 10.8 | | [facility] | | | ine Ratio | | | [facility] | | | | | | MEDICAL | | | | | | CENTER - | | | | | | LABORATORY | | + + + + + + + + | Specimen | + + | Blood | + + + + + + + | Performing | Address | City/State/Zipcode | Phone Number | | Organization | | | | + + + + + | [facility] | [address] | [place] | [phone] | | [facility] | | [address] | | | - LABORATORY | | | | + + + + + documented in this encounter Visit Diagnoses + + | Diagnosis | + + | Hepatitis C virus infection without hepatic coma, unspecified chronicity - Primary | + + | Alcoholic liver disease (HCC) Alcoholic liver damage, unspecified | + + documented in this encounter"
--- OUTSIDE RECORDS SUMMARY | ~2020-04-16 | XMS | Encounter Summary ---
Demographics + + + | Address | [address] | | | [place] [address] | + + + | Home Phone | | + + + | Preferred Language | Unknown | + + + | Marital Status | Single | + + + | Zoroastrianism Affiliation | Unknown | + + + | Race | or | + + + | Ethnic Group | Not or | + + + Author + + + | Author | [facility] | | | and [place] | + + + | Organization | [facility] | | | and [place] | + + + | Address | Unknown | + + + | Phone | Unavailable | + + + Support + + +---------+ + | Name | Relationship | Address | Phone | + + +---------+ + | Patricia Dangeloson | ECON | Unknown | | + + +---------+ + Care Team Providers + +------+ + | Care Spa Technician Name | Role | Phone | + +------+ + | Orly Villavicencio MD | PCP | | + +------+ + Reason for Visit + + + | Reason | Comments | + + + | Medication Refill | | + + + Encounter Details +--------+--------+ + + + | Date | Type | Department | Care Team | Description | +--------+--------+ + + + | 08/08/ | Refill | [facility] | Orly Villavicencio | Medication Refill | | 2019 | | MEDICINE [address] | [address] | | | | | [place], | [place] | | | | | [place] [address] | [place] [address] | | | | | [phone] | [phone] | | | | | | | | +--------+--------+ + + + Social History + + [...] Telephone Encounter - Orly Villavicencio MD - 08/08/2019 11:22 AM PSTNo further refi lls unless he sees me within the next 2 weeks. Please schedule an appt. Thanks. elephone En counter - Yusra Carter, TI - 08/08/2019 11:07 AM PSTMedication Lorazepam 1 mg Quantity #15 Last refill date 07/27/19 Pharmacy [facility] Last appointment 07/03/19 Next appointment no future appointments scheduled documented in this e ncounter Plan of Treatment Not on filedocumented as of this encounter Visit Diagnoses Not on filedocumented in this encounter
--- OUTSIDE RECORDS SUMMARY | ~2020-04-16 | XMS | Encounter Summary ---
Demographics + + + | Address | [address] | | | [place] [address] | + + + | Home Phone | | + + + | Preferred Language | Unknown | + + + | Marital Status | Single | + + + | Confucianism Affiliation | Unknown | + + + | Race | or | + + + | Ethnic Group | Not or | + + + Author + + + | Author | [facility] | | | and [place] | + + + | Organization | [facility] | | [...] Team Providers + +------+ + | Care Trade Clerk Name | Role | Phone | + +------+ + | Orly Villavicencio MD | PCP | | + +------+ + Reason for Visit + + + | Reason | Comments | + + + | Medication | | | Management | | + + + | Other | Discuss depression medication | + + + Encounter Details +--------+---------+ + + + | Date | Type | Department | Care Team | Description | +--------+---------+ + + + | 04/24/ | Office | [facility] | Orly Villavicencio | Hepatic cirrhosis, | | 2019 | Visit | MEDICINE [address] | MD [address] | unspecified hepatic | | | | [place], | [facility] | cirrhosis type, | | | | [place] [address] | [place] [address] | unspecified whether | | | | [phone] | [phone] | ascites present | | | | | | (HCC) (Primary Dx); | | | | | | Chronic hepatitis C | | | | | | without hepatic coma | | | | | | (HCC); Abdominal | | | | | | aortic aneurysm | | | | | | (AAA) without | | | | | | rupture (HCC); | | | | | | Depression, | | | | | | unspecified | | | | | | depression type; | | | | | | Nausea and vomiting, | | | | | | intractability of | | | | | | vomiting not | | | | | | specified, | | | | | | unspecified vomiting | | | | | | type | +--------+---------+ + + + Social History + + [...] Comments | + + +---------+ + | No | 126 Cans of beer | 126.0 | quit since | + + +---------+ + + + + | Sex Assigned at | Date Recorded | | | | + + + | Not on file | | + + + documented as of this encounter Last Filed Vital Signs + + + + + | Vital Sign | Reading | Time Taken | Comments | + + + + + | Blood Pressure | 122/64 | 04/24/2019 8:07 AM | | | | | PDT | | + + + + + | Pulse | 67 | 04/24/2019 8:07 AM | | | | | PDT | | + + + + + | Temperature | 37 C (98.6 F) | 04/24/2019 8:07 AM | | | | | PDT | | + + + + + | Respiratory Rate | 16 | 04/24/2019 8:07 AM | | | | | PDT | | + + + + + | Oxygen Saturation | 98% | 04/24/2019 8:07 AM | | | | | PDT | | + + + + + | Inhaled Oxygen | - | - | | | Concentration | | | | + + + + + | Weight | 107.2 kg (236 lb 5.3 | 04/24/2019 8:07 AM | | | | oz) | PDT | | + + + + + | Height | 177.8 cm (5' 10") | 04/24/2019 8:07 AM | | | | | PDT | | + + + + + | Body Mass Index | 33.91 | 04/24/2019 8:07 AM | | | | | PDT | | + + + + + documented in this encounter Patient Instructions Patient Instructions Nadja Khan CMA - 04/24/2019 8:00 AM PDTPlease do blood work toregine hogan. We will call your sister Annelise for an ultrasound of your belly. We will call in your medications as soon as we get the results of your blood test. Please set up an appointment in 4 weeks. Start Omeprazole 1 capsule before dinner/nighttime. This is for your nausea and vomiting in the mornings. documented in this encounter Progress Notes Orly Villavicencio MD - 04/24/2019 8:00 AM PDTFormatting of this note might be diff erent from the original. Chief Complaint Patient presents with Medication Management Other Discuss depression medication HPI: Hossein Holcomb is here for medication follow up. He was last seen almost 1 year ago. He has known history of alcoholism and hepatitis C infection. Has restarted ETOH use, drinks about 6 beers daily. Smokes about 1/2 PPD. He has known history of anxiety and depression. He does admit to feeling down. Stopped nortriptyline as he ran out of medication a few months ago. Does report some suicidal ideations. States he would not act upon this. Had good support from his sister. Has nausea and vomiting in the mornings about 2-3x per week. Denies vomiting during the day. Denies melena, blood in stool, weight loss, early satiety. He has also stopped spironolactone (ran out of it, and did not ask for a refill). Past Medical History: Diagnosis Date Chest trauma, penetrating bucked off a horse Pneumonia Current Outpatient Medications on File Prior to Visit Medication Sig Dispense Refill furosemide (LASIX) 40 mg tablet 1 tablet a day. (Patient taking differently: 2 tablets a day.) 90 tablet 1 Lactulose 20 GM/30ML SOLN Take 20 g by mouth 3 times daily. or more to produce 2-3 soft stools a day. 2000 mL 1 LORazepam (ATIVAN) 1 mg tablet take 1 tablet by mouth every 6 hours if needed for anxie ty (Patient not taking: Reported on 04/24/2019) 20 tablet 0 nortriptyline (PAMELOR) 10 MG capsule Take 2 capsules by mouth nightly. (Patient not ta monica: Reported on 04/24/2019) 60 capsule 3 spironolactone (ALDACTONE) 100 MG tablet Take 1 tablet by mouth Daily. (Patient not toy ing: Reported on 04/24/2019) 90 tablet 1 No current facility-administered medications on file prior to visit. No Known Allergies ROS: Denies chest pain, shortness of breath, palpitations. Denies fever, cough colds. Denies any new bladder or bowel disturbances. Denies falls. Physical Examination: BP 122/64 | Pulse 67 | Temp 37 C (98.6 F) (Temporal) | Resp 16 | Ht 1.778 m (5' 10" ) | Wt 107.2 kg (236 lb 5.3 oz) | SpO2 98% | BMI 33.91 kg/m General Appearance: Patient not in pain or any respiratory distress. HEENT: Delia conjunctivae, anicteric sclerae. No neck vein engorgement. Thyroid not enlarg ed. No enlarged lymph nodes in the head or neck. Respiratory: Clear breath sounds. No crackles/wheezes. Cardiovascular: Good S1S2, No murmurs. No rubs/gallops. Rhythm regular. Musculoskeletal: No pedal edema. No open wounds. GI: Abdomen soft with normoactive bowel sounds. No rebound tenderness or guarding. Umbilic al hernia. (-) Sifuentes's sign No CVA tenderness. No masses/bruits. He has no asterixis, tremors. Assessment: 1. Hepatic cirrhosis, unspecified hepatic cirrhosis type, unspecified whether ascites prese nt (HCC) - due to alcohol and chronic Hep C. CBC with Differential Comprehensive Metabolic Panel Protime INR Alpha Fetoprotein, Tumor Marker Ammonia TSH Vitamin D, Deficiency Screen (25-Hydroxy) Hemoglobin A1C US Abdomen Limited 2. Chronic hepatitis C without hepatic coma (HCC) - had declined treatment multiple times. 3. Abdominal aortic aneurysm (AAA) without rupture (HCC) US Aorta Limited 4. Depression, unspecified depression type - active, due to non-treatment. 5. Nausea and vomiting, intractability of vomiting not specified, unspecified vomiting type - likely gastritis or esophagitis. Will likely need an EGD. Will discuss with him. Patient is quite non-compliant and has limited insight into his conditions. Plan: Will refill his medications. Restart nortriptyline, but at a higher dose of 25 mg at HS. Start PPI 1 capsule at HS. Obtain surveillance labs and US as shown above. Spent 25 minutes in vrns-tt-[id number] time with the patient, with greater than 50% of time spent in counseling and discussion of the above mentioned problems. Return in about 1 month (around 05/22/2019) for follow up. IOrly MD, personally performed the services described in this documentation as sc ribed by Nadja Khan CMA, and the documentation is both accurate and complete. Encounter Note Electronically Signed by: Orly Villavicencio MD 04/24/2019 documented i n this encounter Plan of Treatment + +---------+--------+ + + | Name | Type | Priori | Associated Diagnoses | Order Schedule | | | | ty | | | + +---------+--------+ + + | US Abdomen Limited | Imaging | Routin | Hepatic cirrhosis, | Expected: | | | | e | unspecified hepatic | 04/24/2019, Expires: | | | | | cirrhosis type, | 04/24/2020 | | | | | unspecified whether | | | | | | ascites present | | | | | | (HCC) | | + +---------+--------+ + + | US Aorta Limited | Imaging | Routin | Abdominal aortic | Expected: | | | | e | aneurysm (AAA) | 04/24/2019, Expires: | | | | | without rupture | 04/24/2020 | | | | | (HCC) | | + +---------+--------+ + + documented as of this encounter Results Hemoglobin A1C (04/24/2019 9:01 AM PDT) + +-------+ + + + | Component | Value | Ref Range | Performed | Pathologist | | | | | At | Signature | + +-------+ + + + | Hemoglobin | 5.1 | 4.3 - 6.0 % | [facility] | | | A1c | | | [facility] | | | | | | MEDICAL | | | | | | CENTER - | | | | | | LABORATORY | | + +-------+ + + + | Estimated | 100 | mg/dL | [facility] | | | Average | | | [facility] | | | Glucose | | | MEDICAL | | | | | | CENTER - | | | | | | LABORATORY | | + +-------+ + + + + + | Specimen | + + | Blood | + + + + + + + | Performing | Address | City/State/Zipcode | Phone Number | | Organization | | | | + + + + + | [facility] | [address] | [place] | [phone] | | [facility] | | [address] | | | - LABORATORY | | | | + + + + + Vitamin D, Deficiency Screen (25-Hydroxy) (04/24/2019 9:01 AM PDT) + +--------+ + + + | Component | Value | Ref Range | Performed | Pathologist | | | | | At | Signature | + +--------+ + + + | Vitamin D, | 23 (L) | 30 - 100 ng/mL | [facility] | | | 25 Hydroxy | | | [facility] | | | | | | [...] | + + + + + | [facility] | [address] | [place] | [phone] | | [facility] | | [address] | | | - LABORATORY | | | | + + + + + TSH (04/24/2019 9:01 AM PDT) + +-------+ + + + | Component | Value | Ref Range | Performed | Pathologist | | | | | At | Signature | + +-------+ + + + | TSH | 2.00 | 0.55 - 4.78 | [facility] | | | | | uIU/mL | [facility] | | | | | | MEDICAL | | | | | | CENTER - | | | | | | LABORATORY | | + +-------+ + + + + + | Specimen | + + | Blood | + + + + + + + | Performing | Address | City/State/Zipcode | Phone Number | | Organization | | | | + + + + + | [facility] | [address] | [place] | [phone] | | [facility] | | [address] | | | - LABORATORY | | | | + + + + + Ammonia (04/24/2019 9:01 AM PDT) + +--------+ + + + | Component | Value | Ref Range | Performed | Pathologist | | | | | At | Signature | + +--------+ + + + | Ammonia | 60 (H) | 11 - 32 umol/L | [facility] | | | | | | [facility] | | | | | | [...] | + + + + + | [facility] | [address] | [place] | [phone] | | [facility] | | [address] | | | - LABORATORY | | | | + + + + + Alpha Fetoprotein, Tumor Marker (04/24/2019 9:01 AM PDT) + + + + + + | Component | Value | Ref Range | Performed | Pathologist | | | | | At | Signature | + + + + + + | AFP Tumor | 5.4Comment: Leida | 0.0 - 8.3 ng/mL | [facility] | | | Marker | Diagnostics | | LAB [facility] | | | | Electrochemiluminescence | | - BKR | | | | Immunoassay | | | | | | (ECLIA)Values obtained | | | | | | with different assay | | | | | | methods or kits cannot | | | | | | beused interchangeably. | | | | | | Results cannot be | | | | | | interpreted as | | | | | | absoluteevidence of the | | | | | | presence or absence of | | | | | | malignant disease.This | | | | | | test is not | | | | | | interpretable in | | | | | | females. | | | | + + + + + + + + | Specimen | + + | Blood | + + + + + | Narrative | Performed At | + + + | Performed at: [address] [facility] [address], | REFERENCE LAB | | [place], [place] [id number] [place]ge Sawyer: Mukund Ponce MD, Phone: | [facility] | | [phone] | | + + + + + + + + | Performing | Address | City/State/Zipcode | Phone Number | | Organization | | | | + + + + + | REFERENCE LAB | [address] | [place], [place] | [phone] | | [facility] | [facility] | [address] | | + + + + + Protime INR (04/24/2019 9:01 AM PDT) + + + + + + | Component | Value | Ref Range | Performed | Pathologist | | | | | At | Signature | + + + + + + | Prothrombin | 15.9 (H) | 11.3 - 13.9 | [facility] | | | Time | | seconds | [facility] | | | | | | MEDICAL | | | | | | CENTER - | | | | | | LABORATORY | | + + + + + + | INR | 1.3 (H)Comment: Usual | 0.9 - 1.1 | [facility] | | | | Oral Anticoagulation | | [facility] | | | | Range: 2.0 - | | MEDICAL | | | | 3.0High Level Oral | | CENTER - | | | | Anticoagulation Range: | | LABORATORY | | | | 2.5 - 3.5 | | | | + + + + + + + + | Specimen | + + | Blood | + + + + + + + | Performing | Address | City/State/Zipcode | Phone Number | | Organization | | | | + + + + + | [facility] | [address] | [place] | [phone] | | [facility] | | [address] | | | - LABORATORY | | | | + + + + + Comprehensive Metabolic Panel (04/24/2019 9:01 AM PDT) + + + + + + | Component | Value | Ref Range | Performed | Pathologist | | | | | At | Signature | + + + + + + | Na | 134 (L) | 136 - 145 | [facility] | | | | | mmol/L | [facility] | | | | | | MEDICAL | | | | | | CENTER - | | | | | | LABORATORY | | + + + + + + | K | 3.8 | 3.4 - 5.1 | [facility] | | | | | mmol/L | [facility] | | | | | | MEDICAL | | | | | | CENTER - | | | | | | LABORATORY | | + + + + + + | Cl | 104 | 98 - 107 mmol/L | [facility] | | | | | | [facility] | | | | | | MEDICAL | | | | | | CENTER - | | | | | | LABORATORY | | + + + + + + | CO2 | 27 | 20 - 31 mmol/L | [facility] | | | | | | [facility] | | | | | | MEDICAL | | | | | | CENTER - | | | | | | LABORATORY | | + + + + + + | Anion Gap | 3 | 3 - 16 mmol/L | [facility] | | | | | | [facility] | | | | | | MEDICAL | | | | | | CENTER - | | | | | | LABORATORY | | + + + + + + | Glucose | 101 | 60 - 106 mg/dL | [facility] | | | | | | [facility] | | | | | | MEDICAL | | | | | | CENTER - | | | | | | LABORATORY | | + + + + + + | BUN | 5 (L) | 9 - 23 mg/dL | [facility] | | | | | | [facility] | | | | | | MEDICAL | | | | | | CENTER - | | | | | | LABORATORY | | + + + + + + | Creatinine | 0.72 | 0.70 - 1.30 | [facility] | | | | | mg/dL | [facility] | | | | | | MEDICAL | | | | | | CENTER - | | | | | | LABORATORY | | + + + + + + | eGFR, | >60Comment: GLOMERULAR | >=60 | [facility] | | | non- | FILTRATION | mL/min/1.73m2 | [facility] | | | Malagasy | RATE,ESTIMATED | | MEDICAL | | | | mL/min/1.67q2Svkq than | | CENTER - | | [...] + + + + | Calcium | 8.7 | 8.7 - 10.4 | [facility] | | | | | mg/dL | [facility] | | | | | | MEDICAL | | | | | | CENTER - | | | | | | LABORATORY | | + + + + + + | Albumin | 3.6 | 3.2 - 4.8 g/dL | [facility] | | | | | | [facility] | | | | | | MEDICAL | | | | | | CENTER - | | | | | | LABORATORY | | + + + + + + | Bilirubin | 2.9 (H) | 0.3 - 1.2 mg/dL | [facility] | | | Total | | | [facility] | | | | | | MEDICAL | | | | | | CENTER - | | | | | | LABORATORY | | + + + + + + | Total | 8.5 (H) | 5.7 - 8.2 g/dL | [facility] | | | Protein | | | [facility] | | | | | | MEDICAL | | | | | | CENTER - | | | | | | LABORATORY | | + + + + + + | AST | 126 (H) | 0 - 34 U/L | [facility] | | | | | | [facility] | | | | | | MEDICAL | | | | | | CENTER - | | | | | | LABORATORY | | + + + + + + | ALT | 52 (H) | 10 - 49 U/L | [facility] | | | | | | [facility] | | | | | | MEDICAL | | | | | | CENTER - | | | | | | LABORATORY | | + + + + + + | Alkaline | 163 (H) | 46 - 116 U/L | [facility] | | | Phosphatase [...] Albumin/Masha | 0.7 (L) | 0.8 - 1.9 | [facility] | | | bulin Ratio | | | [facility] | | | | | | MEDICAL | | | | | | CENTER - | | | | | | LABORATORY | | + + + + + + | BUN/Creatin | 6.9 | | [facility] | | | ine [...] | + + + + + | [facility] | [address] | [place] | [phone] | | [facility] | | [address] | | | - LABORATORY | | | | + + + + + CBC with Differential (04/24/2019 9:01 AM PDT) + + + + + + | Component | Value | Ref Range | Performed | Pathologist | | | | | At | Signature | + + + + + + | White Blood | 5.4 | 4.0 - 11.0 K/uL | [facility] | | | Cells | | | [facility] | | | | | | MEDICAL | | | | | | CENTER - | | | | | | LABORATORY | | + + + + + + | Red Blood | 4.73 | 4.30 - 5.70 | [facility] | | | Cells | | M/uL | [facility] | | | | | | MEDICAL | | | | | | CENTER - | | | | | | LABORATORY | | + + + + + + | Hemoglobin | 15.4 | 13.5 - 18.0 | [facility] | | | | | g/dL | [facility] | | | | | | MEDICAL | | | | | | CENTER - | | | | | | LABORATORY | | + + + + + + | Hematocrit | 44.6 | 40.0 - 51.0 % | [facility] | | | | | | [facility] | | | | | | MEDICAL | | | | | | CENTER - | | | | | | LABORATORY | | + + + + + + | MCV | 94.3 | 83.0 - 101.0 fL | [facility] | | | | | | [facility] | | | | | | MEDICAL | | | | | | CENTER - | | | | | | LABORATORY | | + + + + + + | MCH | 32.6 | 28.0 - 35.0 pg | [facility] | | | | | | [facility] | | | | | | MEDICAL | | | | | | CENTER - | | | | | | LABORATORY | | + + + + + + | MCHC | 34.5 | 32.0 - 36.0 | [facility] | | | | | g/dL | [facility] | | | | | | MEDICAL | | | | | | CENTER - | | | | | | LABORATORY | | + + + + + + | RDW-CV | 14.3 | <15.0 % | [facility] | | | | | | [facility] | | | | | | MEDICAL | | | | | | CENTER - | | | | | | LABORATORY | | + + + + + + | RDW-SD | 50.0 (H) | 35.1 - 46.3 fL | [facility] | | | | | | [facility] | | | | | | MEDICAL | | | | | | CENTER - | | | | | | LABORATORY | | + + + + + + | Platelet | 41 (L)Comment: Platelet | 140 - 440 K/uL | [facility] | | | Count | clumping seen on smear | | [facility] | | | | review. Platelet count | | MEDICAL | | | | may be falsely | | CENTER - | | | | decreased. Suggest | | LABORATORY | | | | recollection for | | | | | | accurate platelet count. | | | | + + + + + + | MPV | 10.8 | 6.5 - 12.4 fL | [facility] | | | | | | [facility] | | | | | | MEDICAL | | | | | | CENTER - | | | | | | LABORATORY | | + + + + + + | Immature | 20.7 (H)Comment: Low PLT | 0.9 - 11.2 % | [facility] | | | Platelet | + Low IPF are | | [facility] | | | Fraction | consistent with a | | MEDICAL | | | | production disorder. Low | | CENTER - | | | | PLT + High IPF are | | LABORATORY | | | | consistent with | | | | | | increased platelet | | | | | | destruction. | | | | + + + + + + | % | 55.6 | 45.0 - 82.0 % | [facility] | | | Neutrophils | | | [facility] | | | | | | MEDICAL | | | | | | CENTER - | | | | | | LABORATORY | | + + + + + + | % | 24.1 | 20.0 - 45.0 % | [facility] | | | Lymphocytes | | | [facility] | | | | | | MEDICAL | | | | | | CENTER - | | | | | | LABORATORY | | + + + + + + | % Monocytes | 15.3 (H) | 4.0 - 12.0 % | [facility] | | | | | | [facility] | | | | | | MEDICAL | | | | | | CENTER - | | | | | | LABORATORY | | + + + + + + | % | 3.5 | 0.0 - 5.0 % | [facility] | | | Eosinophils | | | [facility] | | | | | | MEDICAL | | | | | | CENTER - | | | | | | LABORATORY | | + + + + + + | % Basophils | 1.1 (H) | 0.0 - 1.0 % | [facility] | | | | | | [facility] | | | | | | MEDICAL | | | | | | CENTER - | | | | | | LABORATORY | | + + + + + + | % Immature | 0.4 | 0.0 - 0.4 % | [facility] | | | Granulocyte | | | [facility] | | | s | | | MEDICAL | | | | | | CENTER - | | | | | | LABORATORY | | + + + + + + | Absolute | 3.03 | 1.80 - 8.50 | [facility] | | | Neutrophils | | K/uL | [facility] | | | | | | MEDICAL | | | | | | CENTER - | | | | | | LABORATORY | | + + + + + + | Absolute | 1.31 | 0.60 - 3.20 | [facility] | | | Lymphocytes | | K/uL | [facility] | | | | | | MEDICAL | | | | | | CENTER - | | | | | | LABORATORY | | + + + + + + | Absolute | 0.83 | 0.00 - 1.00 | [facility] | | | Monocytes | | K/uL | [facility] | | | | | | MEDICAL | | | | | | CENTER - | | | | | | LABORATORY | | + + + + + + | Absolute | 0.19 | 0.00 - 0.40 | [facility] | | | Eosinophils | | K/uL | [facility] | | | | | | MEDICAL | | | | | | CENTER - | | | | | | LABORATORY | | + + + + + + | Absolute | 0.06 | 0.00 - 0.10 | [facility] | | | Basophils | | K/uL | [facility] | | | | | | MEDICAL | | | | | | CENTER - | | | | | | LABORATORY | | + + + + + + | Absolute | 0.02 | 0.00 - 0.03 | [facility] | | | Immature | | K/uL | [facility] | | | Granulocyte | | | MEDICAL | | | s | | | CENTER - | | | | | | LABORATORY | | + + + + + + | % nRBC | 0 | 0 - 2 per 100 | [facility] | | | | | WBCs | [facility] | | | | | | MEDICAL | | | | | | CENTER - | | | | | | LABORATORY | | + + + + + + | Absolute | 0.00 | 0.00 - 0.01 | [facility] | | | nRBC | | K/uL | [facility] | | | | | | [...] [facility] | [address] | [place] | [phone] | | [facility] | | [address] | | | - LABORATORY | | | | + + + + + documented in this encounter Visit Diagnoses + + | Diagnosis | + + | Hepatic cirrhosis, unspecified hepatic cirrhosis type, unspecified whether ascites | | present (HCC) - Primary | + + | Chronic hepatitis C without hepatic coma (HCC) | + + | Abdominal aortic aneurysm (AAA) without rupture (HCC) | + + | Depression, unspecified depression type | + + | Nausea and vomiting, intractability of vomiting not specified, unspecified vomiting | | type | + + documented in this encounter
--- OUTSIDE RECORDS SUMMARY | ~2020-04-16 | XMS | Encounter Summary ---
Demographics + + + | Address | [address] | | | [place] [address] | + + + | Home Phone [...] Author + + + | Author | [facility] | | | and [place] | + + + | Organization | [facility] | | | [...] Team Providers + +------+ + | Care Heading Pinner Name | Role | Phone | + [...] Description | +--------+--------+ + + + | 04/12/ | Refill | [facility] | Orly Villavicencio | Medication Refill | | 2018 | | MEDICINE [address] | [address] | | | | | [place], | [place] | | | | | [place] [address] | [place] [address] | | | | | [phone] | [phone] | | | | | | | [...] this encounter Miscellaneous Notes Telephone Encounter - Qasim Boyer - 04/17/2018 2:32 PM PDTRx faxed to [facility] Raquel ctronically signed by Qasim Boyer at 04/17/2018 2:32 PM PDTTelephone Encounter - Natalia Randolph RN - 04/17/2018 1:38 PM PDTDr Saud RX lorazepam sent to front office spec to please fax to [facility] Dave. ddend um Note - David Bowers RN - 04/17/2018 10:59 AM PDT Addended by: DAVID BOWERS on: 10:59 Modules accepted: Orders elephone Encounte r - David Bowers RN - 04/17/2018 10:50 AM PDTMedication -LORAZEPAM Quantity -20 Amount of medication remaining -UNKNOWN Last refill date -12/01/17 [facility] Last appointment -12/06/17 Next appointment -05/02/18 Caller -HOSSEIN elephone Encounter - Jenifer Benitez - 04/14/2018 5:09 PM PDTPlease see below message, patient is schedule for an appt on 05/[address] VillavicencioElectronically signed by Jenifer Benitez at 8 5:09 PM PDTTelephone Encounter - Eva Ram - 04/14/2018 4:41 PM PDTPatient stuart d and scheduled appointment for 05/02/18, his appt is on waitlist for sooner appt as well. Antoine mohr states he only has five days remaining of medications. Can these be filled? Patient is needing: lasix 40 mg Lorazepam 1 mg Potassium chloride 20 mEq ER Please advise. elephone Encounter - Yusra Carter RN - 04/13/2018 10:17 AM PDTPatient no showed for his last 2 appointments Ok to refill documen fran in this encounter Plan of Treatment Not on filedocumented as of this encounter Visit Diagnoses Not on filedocumented in this encounter"
--- OUTSIDE RECORDS SUMMARY | ~2020-04-16 | XMS | Encounter Summary ---
Demographics + + + | Address | [address] | | | [place] [address] | + + + | Home Phone | | + + + | Preferred Language | Unknown | + + + | Marital Status | Single | + + + | Latter Day Affiliation | Unknown | + + + | Race | or | + + + | Ethnic Group | Not or | + + + Author + + + | Author | [facility] | | | and [place] | + + + | Organization | [facility] | | | [...] Team Providers + +------+ + | Care Life Science Technician Name | Role | Phone | + +------+ + | Orly Villavicencio MD | PCP | | + +------+ + Reason for Visit + +--------+ + | Reason | Onset | Comments | | | Date | | + +--------+ + | Referral | 05/08/ | GI | | | 2019 | | + +--------+ + | Referral | 05/08/ | US abdomen limited | | | 2018 | | + +--------+ + | Referral | 05/08/ | US aorta | | | 2018 | | + +--------+ + Encounter Details +--------+ + + + + | Date | Type | Department | Care Team | Description | +--------+ + + + + | 05/08/ | Telephone | [facility] | Orly Villavicencio | Referral (GI); | | 2018 | | [facility] [address] | MD [address] | Referral (US abdomen | | | | [place], | Bill Martinez | limited); Referral | | | | [place] [address] | [place] [address] | (US aorta) | | | | [phone] | [phone] | | | | | | | [...] this encounter Miscellaneous Notes Telephone Encounter - Natalia Hastings RN - 05/22/2019 12:35 PM PDTHeather notified and melissa balized understanding. She agrees to dates and times of these appointments. elephone Encounter - Lacy Pereira - 05/22/2019 12:31 PM PDTHeather returned call can be reached at [phone] elephone Encounter - Natalia De La Cruz RN - 05/22/2019 11:20 AM PDTSpoke to patient. He says he is [place] and he s ays he knew not of the Ultrasound of the aorta and the ultrasound of the abdomen that were s cheduled for today. He was a no show for these exams. He has not scheduled with GI yet. He says he didn't know he was suppose to. I asked him how I may assist him in getting these scheduled. He tells me to schedule with either himself or his girlfriend Lesia. I asked if his sister Melvin is helping him and he says yes, but he says she does not always answer her phone. Patient says he is [place] and may not have service when I call back and asks me to susy inocencio Graf. He says Lesia his girlfriend, rescheduled his follow up to see Dr Villavicencio. He has a follow up with Dr Villavicencio now on 05/28/19 at 1015. Patient agrees to this date and time. Patint was notified we need to schedule an abdomen US, an aorta US and appt with GI. He agrees to this and asks I call his girlfriend [phone] to schedule. Call to Lesia. She agrees to take Patient to follow up here which she already reschedul ed to 05/28/19, and to abdomen US and Aorta US AND GI consult. She asks me to schedule these for her and to call her back. GI consult scheduled for Tuesday06/18/19 @ 9 AM. Both ultrasounds were scheduled for Tuesday06/18/19 to follow this consult with a 10 AM kristina ck in with imaging. Call to Lesia with no answer and I left a Message for Lesia to call us back to notify d ate/time of both US and GI consult. elephone Encounter - Nay Sykes RN - 05/18/2019 5:06 PM PDTAttempted to reach Melvin, left US time, date, and instructions on VM and asked that she please call us back on nurse line to confirm she received these instructions. Still need to give her further instructions regarding number for GI and to please call on M on for appt. elephon e Encounter - Nya Sykes RN - 05/18/2019 10:26 AM PDTSpoke with Melvin, she requests M or Tuesday for imaging and appts. Called and spoke with GI, Melvin needs to call on Tuesday to schedule with Aleyda. Called Imaging and scheduled both ultrasounds for 05/22/19 at 1000, check in at 0945, NPO af ter midnight. This will follow Dr. Villavicencio appt at 0830. Left message for Melvin to please call back for further information on the above. Also ne ed to give her GI's number to schedule.Electronically signed by Nay Sykes RN at 019 10:35 AM PDTTelephone Encounter - Natalia Hastings RN - 05/15/2019 9:45 AM PDTMessage l eft for Melvin to please call us back. Chart review shows 3 referrals are ready to schedule. Referral to GI US abdomen limited US aorta. elephone Encounter - Natalia Hastings RN - 05/14/2019 3:56 PM PDTMessage left for Melvin to call us back.Elect ronically signed by Natalia Hastings RN at 05/14/2019 3:57 PM PDTTelephone Encounter - Natalia eJwell RN - 05/08/2019 8:49 AM PDTCalled GI. Notified PSR of message from BONIFACIO Adan Referral will be opened and they will call patient's sister to schedule appoin tment. I have asked them to please let us know if he does not get scheduled. Please keep this telephone note opened until he is scheduled. elephone Tanya - Orly Villavicencio MD - 05/08/2019 8:31 AM PDTPlease see note below. Please schedule GI appt. Please let patient and his sister know the importance of compliance with his appointments. If he misses GI appointments, then he will not have ANY local support for this issue. Thanks. elephone En elissa - Orly Villavicencio MD - 05/08/2019 8:31 AM PDT----- Message from BONIFACIO Davis sent at 05/08/2019 8:14 PDT ----- Yes I will see him. However, if he continued to be unreliable, the physicians can decline to have him on their scope schedules. Then my hands are tied. Aleyda ----- Message ----- From: Orly Villavicencio MD Sent: 05/07/2019 12:18 To: BONIFACIO Martinez Brie, Your office has declined to see this patient due to "no show" activity. I am requesting to please see this patient. He has cirrhosis and likely esophageal varices and is in dire need of GI care. He is also Hep C positive. Would you please be able to make an exception and see him? Thank you and please let me know. Best regards, Orly documented i n this encounter Plan of Treatment Not on filedocumented as of this encounter Visit Diagnoses Not on filedocumented in this encounter
--- OUTSIDE RECORDS SUMMARY | ~2020-04-16 | XMS | Encounter Summary ---
Demographics + + + | Address | [address] | | | [place] [address] | + + + | Home Phone | | + + + | Preferred Language | Unknown | + + + | Marital Status | Single | + + + | Synagogue Affiliation | Unknown | + + + | Race | or | + + + | Ethnic Group | Not or | + + + Author + + + | Author | [facility] | | | and [place] | + + + | Organization | [facility] | | | [...] Team Providers + +------+ + | Care Licensed Physical Therapist Name | Role | Phone | + +------+ + | Orly Villavicencio MD | PCP | | + +------+ + Reason for Visit + +--------+ + | Reason | Onset | Comments | | | Date | | + +--------+ + | Medication Orders | 06/19/ | | | | 2018 | | + +--------+ + | Left Without Being | 06/19/ | Crisis Response Team | | Seen | 2018 | | + +--------+ + Encounter Details +--------+ + + + + | Date | Type | Department | Care Team | Description | +--------+ + + + + | 06/19/ | Telephone | [facility] | Orly Villavicencio | Medication Orders; | | 2018 | | [facility] [address] | [address] | Left Without Being | | | | [place], | [address] [place] | Seen (Crisis | | | | [place] [address] | [place] [address] | Response Team) | | | | [phone] | [phone] | | | | | | | [...] Telephone Encounter - Natalia Hastings RN - 06/19/2019 3:04 PM PDTHeather notified and melissa balized understanding. Follow up here scheduled for next Tuesday. Lidia agrees to date and time. Lidia asks we call her for appointment reminders. Her number is primary contact at this time.Electronically signed by Natalia Hastings RN at 1 3:16 PM PDTTelephone Encounter - Orly Villavicencio MD - 06/19/2019 2:57 PM PDTRxs sent. Thanks. elephone En counter - Natalia Hastings RN - 06/19/2019 2:16 PM PDTMessage left for Lidia to call us b ack. Noted in earlier message lidia wanted this sent to [facility]. Please resend to [facility]. I cancelled the nortriptyline + Lorazepam and spironolactone and Thiamine at [facility], s poke to pharmacist. She says to resend to [facility]. Pending Dr Villavicencio review and signature. elephone Encounter - Orly Villavicencio MD - 06/19/2019 1:09 PM PDTI already sent in nortriptyline + Grecia azepam and spironolactone. Please make sure to take these + furosemide once a day. Lorazepam as needed for anxiety. Start Thiamine 1 tablet a day (vitamin supplement). Please also ask to start B-complex vitamin once a day - This is over the counter. These vitamins are very important. See me on follow up next week. Please schedule an appt. Thanks. elephone En counter - Natalia Hastings RN - 06/19/2019 12:47 PM PDTSee ED visit of today. Patient left AMA. Call from Lidia. She says patient did lab, and did not wait for [facility] to come. Lidia sa id she had an appointment she needed to get to. She says "he has decided to quit drinking o n his own". [facility] She says she [facility] this p [facility] and it was not there. Please advise. elep isaac Encounter - Lidia Hastings - 06/19/2019 12:00 PM PDTPatient's girlfriend called johana millan to speak with the nurse. Girlfriend stated it was regarding antidepressant medication that was supposed to have been called in to the pharmacy in April for the patient. Susu rodriguez call to advise. docu mented in this encounter Plan of Treatment Not on filedocumented as of this encounter Visit Diagnoses + + | Diagnosis | + + | Depression, unspecified depression type | + + documented in this encounter
--- OUTSIDE RECORDS SUMMARY | ~2020-04-16 | XMS | Encounter Summary ---
Demographics + + + | Address | [address] | | | [place] [address] | + + + | Home Phone | | + + + | Preferred Language | Unknown | + + + | Marital Status | Single | + + + | Yazidi Affiliation | Unknown | + + + | Race | or | + + + | Ethnic Group | Not or | + + + Author + + + | Author | [facility] | | | and [place] | + + + | Organization | [facility] | | | [...] Team Providers + +------+ + | Care Batch Roller Operator Name | Role | Phone | + [...] Description | +--------+--------+ + + + | 07/27/ | Refill | [facility] | Orly Villavicencio | Medication Refill | | 2019 | | MEDICINE [address] | [address] | | | | | [place], | [place] | | | | | [place] [address] | [place] [address] | | | | | [phone] | [phone] | | | | | | | [...] this encounter Miscellaneous Notes Telephone Encounter - Yusra Carter RN - 07/27/2019 8:56 AM PSTMedication Lorazepam 1 mg Quantity #15 Last refill date 06/19/19 [facility]acy [facility] Last appointment 07/03/19 Next appointment 07/30/19 documented in this e ncounter Plan of Treatment Not on filedocumented as of this encounter Visit Diagnoses Not on filedocumented in this encounter
--- OUTSIDE RECORDS SUMMARY | ~2020-04-16 | XMS | Encounter Summary ---
Demographics + + + | Address | [address] | | | [place] [address] | + + + | Home Phone | | + + + | Preferred Language | Unknown | + + + | Marital Status | Single | + + + | Methodist Affiliation | Unknown | + + + | Race | or | + + + | Ethnic Group | Not or | + + + Author + + + | Author | [facility] | | | and [place] | + + + | Organization | [facility] | | | [...] Team Providers + +------+ + | Care Flower Arranger Name | Role | Phone | + +------+ + | Orly Villavicencio MD | PCP | | + +------+ + Reason for Visit + + + | Reason | Comments | + + + | Leg Injury | right leg stepped on by horse x 3-4 days ago. Pr1 | + + + Encounter Details +--------+---------+ + + + | Date | Type | Department | Care Team | Description | +--------+---------+ + + + | 06/29/ | Office | [facility] | Lesia Nagel, | Leg injury, right, | | 2015 | Visit | CARE [address] | Need updated | initial encounter | | | | [place] | address | (Primary Dx); | | | | [address] | | Infected open wound | | | | [phone] | | | +--------+---------+ + + + Social History [...] + + + | Blood Pressure | 156/84 | 06/29/2016 9:55 AM | | | | | PST | | + + + + + | Pulse | 78 | 06/29/2016 9:55 AM | | | | | PST | | + + + + + | Temperature | 37.4 C (99.4 F) | 06/29/2016 9:55 AM | | | | | PST | | + + + + + | Respiratory Rate | 20 | 06/29/2016 9:55 AM | | | | | PST | | + + + + + | Oxygen Saturation | 96% | 06/29/2016 9:55 AM | | | | | PST | | + + + + + | Inhaled Oxygen | - | - | | | Concentration | | | | + + + + + | Weight | 115.2 kg (254 lb) | 06/29/2016 9:55 AM | | | | | PST | | + + + + + | Height | 180.3 cm (5' 10.98") | 06/29/2016 9:55 AM | | | | | PST | | + + + + + | Body Mass Index | 35.44 | 06/29/2016 9:55 AM | | | | | PST | | + + + + + documented in this encounter Patient Instructions Patient Instructions Lesia Nagel MD - 06/29/2016 10:58 AM PST Skin Tear (Skin Avulsion) A skin avulsion is a tearing of the top layer of skin. This commonly happens after a fall o r other injury. It also tends to be more common in older people, or those taking blood thinn ers or steroids for long periods of time. Home care The following guidelines will help you care for your wound at home: Keep the wound clean and dry for the first 48 hours after the stitches have been placed. If there is a dressing or bandage, change it when it gets wet or dirty. Otherwise, leave it on for the first 24 hours, then change it once a day or as often as the doctor says. If stitches or blanco were used, check the wound every day. After taking off the dressing, wash the area gently with soap and water. Clean as close to the stitches as you can. Avoid washing or rubbing the stitches directly. After 3 days you can keep the bandages off the wound, unless told otherwise. Allow the w ound to be open to the air. Keep a thin layer of antibiotic ointment on the cut. This will keep the wound clean, joselyn e it easier to remove the stitches, and reduce scarring. If your wound is oozing, you can put a nonstick dressing over it. Then, reapply the band age or dressing as you were told. You can shower as usual after the first 24 hours, but don't soak the area in water (no b aths or swimming) until the stitches or blanco are taken out. If surgical tape was used, keep the area clean and dry. If it becomes wet, blot it dry w ith a towel. If skin glue was used, don't put any creams, lotions, or antibiotic ointments on it. The se can dissolve the glue. Usually the glue will flake off in about 5 to 10 days by itself. T ry to resist picking it off before that so the wound doesn't open up. When it gets wet, dry it gently. Here is some information about medications: You may use acetaminophen or ibuprofen to control pain, unless another pain medicine was given.If you have chronic liver or kidney disease or ever had a stomach ulcer or GI bleed ing, talk with your doctor before using these medicines. If you were given antibiotics, take them until they are all used up. It is important to finish the antibiotics even if the wound looks better. This will ensure that the infection h as cleared. Follow-up care Follow up with your doctor, clinic, or this facility as you were advised, and: Watch for any signs of infection, such as increasing redness, swelling, or pus coming ou t. If this happens, don't wait for your scheduled visit. Instead, see a doctor sooner. Stitches or blanco are usually taken out within 5 to 14 days. This varies depending on what part of your body they are on, and the type of wound. The doctor will tell you how long stitches should be left in. If surgical tape was used, it is usually left on for 7 to 10 days. You can remove surgic al tape after that unless you were told otherwise. If you try to remove it, and it is too [address], soaking can help. If the edges of the cut pull apart, stop removing the tape and follow up with your doctor As mentioned above, skin glue will flake off by itself in 5 to 10 days, so you don't nee d to pull it off. Note: If any X-rays were done, a radiologist will review them. You will be notified of any changes that may affect your care. When to seek medical care Get prompt medical attention if any of the following occur: Increasing pain in the wound Redness, swelling, or pus coming from the wound Fever of 100.4F (38C) or higher, or as directed by your health care provider Sutures or blanco come apart or fall out before your next appointment Surgical tape closures fall off within 7 days, or the wound edges re-open Bleeding not controlled by direct pressure [id number] [employer]. [address] [place] [address]. All righ ts reserved. This information is not intended as a substitute for professional medical care. Always follow your healthcare professional's instructions. documented in this encounter Progress Notes Libra Gardner RN - 06/29/2016 11:05 AM PSTAntibiotic ointment applied to wounds on Rt l eg. Telfa placed over wounds and Kerlix wrapped around the Rt leg. Libra Gardner RN Lesia Mays MD - 06/29/2016 10:11 AM PST Subjective: Chief Complaint: Leg Injury History of Present Illness: Hossein is a 60 y.o. male who comes in complaining of wound on the right leg. He was kunal ed on by a horse 3 days ago. His girlfriend has been cleaning it with hydrogen peroxide isabel ry day but now developed some redness around each abrasion. He is not a diabetic. He does drink a lot of alcohol. His tetanus shot was 3 or 4 years ago he says. He's had no fever o r chills nausea vomiting diarrhea abdominal pain, dysuria. No other complaints. Patient's medications, allergies, past medical, surgical, social and family histories were reviewed and updated as appropriate. ROS: see HPI Objective: BP 156/84 mmHg | Pulse 78 | Temp(Src) 37.4 C (99.4 F) (Temporal) | Resp 20 | Ht 1.803 m (5' 10.98") | Wt 115.214 kg (254 lb) | BMI 35.44 kg/m2 | SpO2 96% General Appearance: Alert, cooperative, no distress, appears stated age Patient is alert and oriented by 4 He has 2 large patches on the right leg that are abrasions now surrounded by erythema. The re is thick black eschar in the abraded areas. They're completely dry He is tender over these areas the tibia is nontender and the ankle is mildly tender with li ttle bit of swelling and good range of motion X-ray of the tib-fib shows no fractures Assessment and Plans: 1. Leg injury, right, initial encounter XR Tibia Fibula Right 2 Vw 2. Infected open wound clindamycin 300 mg 4 times a day for 10 days Take some probiotics with it If he gets severe diarrhea stop and call me Keep the leg elevated and ice it 15 minutes out of every hour tonight and then 3 times amanda rrow. Stay off the horses and keep this wound clean and dry We dressed it with antibiotic ointment and Telfa and a gauze wrap. He can do that as well daily after he cleans it in the shower. I gave him a few hydrocodone Do not mix alcohol with a hydrocodone. Follow-up immediately if the redness gets larger tomorrow or if he gets drainage from the w ound. I did explain that changes a lap and of the wound with antibiotic ointment and that he will get probably an inherent yellow-green exudate and then a clean base to red wound. There sh ould not be any surrounding erythema This note was dictated using [employer] voice recognition software. Occasional wrong- word or s ound-alike substitutions may have occurred due to the inherent limitations of voice recognit ion software. Please read the chart carefully and recognize, using context, where these subs titutions have occurred. documented in this en counter Plan of Treatment Not on filedocumented as of this encounter Procedures + +--------+ + + + | Procedure Name | Priori | Date/Time | Associated Diagnosis | Comments | | | ty | | | | + +--------+ + + + | XR TIBIA FIBULA | STAT | 06/29/2016 | Leg injury, right, | Results for this | | RIGHT 2 VW | | 10:38 AM | initial encounter | procedure are in the | | | | PST | | results section. | + +--------+ + + + documented in this encounter Results XR Tibia Fibula Right 2 Vw (06/29/2016 10:38 AM PST) + + | Specimen | + + | | + + + + + | Narrative | Performed At | + + + | RIGHT TIBIA AND FIBULA: 06/29/2016 10:38 AM CLINICAL HISTORY: | [facility] | | pain R leg stepped on by horse COMPARISON: None FINDINGS: AP | [facility] | | and lateral views of the right tibia and fibula. No fracture or | [facility] | | focal acute bony abnormality. Joint alignment at the knee and ankle | - IMAGING | | appear within normal limits. No radiographic soft tissue abnormality. | | | IMPRESSION - No radiographic abnormalities of the right tibia and | | | fibula. Dictated and Signed by: Oswaldo Ortega MD | | | Electronically signed: 06/29/2016 12:01 PM | | + + + + + | Procedure Note | + + | Darron Allison Results In - 06/29/2016 12:04 PM PST RIGHT TIBIA AND FIBULA: 06/29/2016 10:38 | | AMCLINICAL HISTORY: pain R leg stepped on by horseCOMPARISON: NoneFINDINGS: [facility] and | | lateral views of the right tibia and fibula.No fracture or focal acute bony abnormality. | | Joint alignment at the knee andankle appear within normal limits. No radiographic soft | | tissue abnormality.IMPRESSION - No radiographic abnormalities of the right tibia and | | fibula.Dictated and Signed by: Oswaldo Ortega MD Electronically signed: 06/29/2016 12:01 | | PM | | | |No fracture or focal acute bony abnormality. Joint alignment at the knee and | |ankle appear within normal limits. No radiographic soft tissue abnormality. | | | |IMPRESSION - No radiographic abnormalities of the right tibia and fibula. | | | |Dictated and Signed by: Oswaldo Ortega MD | | Electronically signed: 06/29/2016 12:01 PM | + + + + + + + | Performing | Address | City/State/Zipcode | Phone Number | | Organization | | | | + + + + + | [facility] | [address] | [place], [place] | [phone] | | [facility] | | [address] | | | - IMAGING | | | | + + + + + documented in this encounter Visit Diagnoses + + | Diagnosis | + + | Leg injury, right, initial encounter - Primary | + + | Infected open wound | + + documented in this encounter
--- OUTSIDE RECORDS SUMMARY | ~2020-04-16 | XMS | Encounter Summary ---
Demographics + + + | Address | [address] | | | [place] [address] | + + + | Home Phone [...] Team Providers + +------+ + | Care Mortgage Loan Specialist Name | Role | Phone | + +------+ + | Orly Villavicencio MD | PCP | | + +------+ + Reason for Visit +---------+--------+ + | Reason | Onset | Comments | | | Date | | +---------+--------+ + | Results | 03/23/ | | | | 2015 | | +---------+--------+ + Encounter Details +--------+ + + + + | Date | Type | Department | Care Team | Description | +--------+ + + + + | 03/23/ | Telephone | [facility] | Orly Villavicencio | Results | | 2016 | | [address]IC[address] | [address] | | | | | [place], | [place] | | | | | [place] [address] | [place] [address] | | | | | [phone] | [phone] | | | | | | | [...] this encounter Miscellaneous Notes Telephone Encounter - Bruno Krueger - 03/24/2016 10:40 AM PDTPatient in to pick pack worker prescription with Ewiiaapaayp ID elephone Encounter - Celeste Wright - 03/23/2016 2:37 PM PDTPrescription p laced in cabinet for pick pack worker with photo id.Electronically signed by Celeste Wright at 09/2015 2:38 PM PDTTelephone Encounter - Natalia Hastings RN - 03/23/2016 1:22 PM PDTRX refugio azepam faxed to [facility]. RX hydrocodone sent to front end mechanic ready for pick pack worker. Lidia notified this is ready to pic k up. elephone Encount er - Natalia Hastings RN - 03/23/2016 1:17 PM PDTHeather notified and verbalized understand ing. elephone Encoun Orly Caro MD - 03/23/2016 12:31 PM PDTGood to know he has decided to s top drinking alcohol. Rx for hydrocodone printed. Please advise to use smallest possible dose to control pain. Lorazepam is printed. Please fax. Please also ask to start a multivitamin with thiamine and folic acid in it. Important to st art this now. Will discuss the letter when he comes in to see me in 5 weeks. Thanks. elephone En counter - Natalia Hastings, RN - 03/23/2016 9:49 AM PDTHeather notified. Lactulose, furosem dee dee and potassium sent to [facility]. Lidia says: 1. Patient is having bilateral knee to feet pain. Lidia says tylenol does not help. Sh tj asks for other pain medicine to help with that. 2. She says patient is drinking a 12 pack a day. She asks for "ativan" to help with withd rawals from stopping alcohol. 3. She asks for a letter from Dr Villavicencio, to "Gagan Liriano, [place], stating that danyelle blandon is under the care of Doctor Saud, has health issues and is unable to work. 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 Lidia says patient has not worked for a long time, ho wever, this letter will help him get some income assistance. elephone Encounter - Bruno Krueger - 09/2015 9:25 AM PDTPatient's girlfriend, Lidia, is calling back. She can be reached at [phone] signed by Bruno Krueger at 03/23/2016 9:32 AM PDTTelepho ne Encounter - Natalia Hastings RN - 03/23/2016 8:47 AM PDTMessage left for lidia to call us back regarding patient. A M PDTTelephone Encounter - Orly Villavicencio MD - 03/23/2016 7:18 AM PDTCall girlfr iend Lidia. Please let know that his labs showed that his liver function continues to be abnormal. Uric acid is normal. His blood ammonia is elevated and he needs to be treated with lactulose again. He will also benefit from a water pill to help decrease the fluid in his legs and hopefully help with his swelling. If he does not improve by the end of the week, it is important that he call so I can addres s the situation. Please call in: Lactulose 30 ml PO TID or more to produce 2-3 soft stools a day. Furosemide 40 mg a day + KCl 20 meqs a day. Repeat bloodwork on Tuesday AM. Order in EMR. Follow up with me in 5-6 weeks. Thanks. documented i n this encounter Plan of Treatment Not on filedocumented as of this encounter Visit Diagnoses + + | Diagnosis | + + | Abnormal LFTs - Primary Other abnormal blood chemistry | + + documented in this encounter
--- OUTSIDE RECORDS SUMMARY | ~2020-04-16 | XMS | Encounter Summary ---
Demographics + + + | Address | [address] | | | [place] [address] | + + + | Home Phone | | + + + | Preferred Language | Unknown | + + + | Marital Status | Single | + + + | Restorationism Affiliation | Unknown | + + + | Race | or | + + + | Ethnic Group | Not or | + + + Author + + + | Author | [facility] | | | and [place] | + + + | Organization | [facility] | | | and [...] Team Providers + +------+ + | Care Scale Balancer Name | Role | Phone | + +------+ + | Orly Villavicencio MD | PCP | | + +------+ + Reason for Visit + + + | Reason | Comments | + + + | Rib Injury | Left rib | + + + Encounter Details +--------+---------+ + + + | Date | Type | Department | Care Team | Description | +--------+---------+ + + + | 09/30/ | Office | [facility] | Orly Villavicencio | Chronic hepatitis C | | 2018 | Visit | [address] | [address] | without hepatic coma | | | | [facility], | [facility] | (HCC) (Primary Dx); | | | | [place] [address] | [place] [address] | Contusion of left | | | | [phone] | [phone] | chest wall, | | | | | | subsequent | | | | | | encounter; | | | | | | Alcoholism (HCC); | | | | | | Smoking | +--------+---------+ + + + Social History [...] + + + | Blood Pressure | 130/74 | 09/30/2017 4:26 PM | | | | | PST | | + + + + + | Pulse | 68 | 09/30/2017 4:26 PM | | | | | PST | | + + + + + | Temperature | 37.1 C (98.7 F) | 09/30/2017 4:26 PM | | | | | PST | | + + + + + | Respiratory Rate | - | - | | + + + + + | Oxygen Saturation | 98% | 09/30/2017 4:26 PM | | | | | PST | | + + + + + | Inhaled Oxygen | - | - | | | Concentration | | | | + + + + + | Weight | 115.2 kg (254 lb) | 09/30/2017 4:26 PM | | | | | PST | | + + + + + | Height | 180.3 cm (5' 10.98") | 09/30/2017 4:26 PM | | | | | PST | | + + + + + | Body Mass Index | 35.45 | 09/30/2017 4:26 PM | | | | | PST | | + + + + + documented in this encounter Progress Notes Orly Villavicencio MD - 09/30/2017 4:30 PM PSTFormatting of this note might be diff erent from the original. Chief Complaint Patient presents with Rib Injury Left rib HPI: Hossein Holcomb is here with his girlfriend, Lesia. Has not been seen in the office - lost to follow up for almost 2 years. He was riding his horse 2 weeks ago and fell off. He fell on his side and injured his left chest. He was evaluated in the ED 6 days ago and CXR and rib XR showed no acute injury/findings. Was discharged on hydrocodone for pain. He continues to take this. Has known Hep C. He did not see GI for hepatitis C treatment when he was referred in 2016. Continues to drink, although this is not as heavy. Drinks about a 6 pack of beer daily. Smokes marijuana. Smokes cigarettes 1/2 PPD. Has bilateral leg swelling. Started taking furosemide again just 4 days ago, which has helped. He also just started taking lactulose for hyperammonemia. Past Medical History: Diagnosis Date Chest trauma, penetrating bucked off a horse Pneumonia Current Outpatient Prescriptions on File Prior to Visit Medication Sig Dispense Refill furosemide (LASIX) 40 mg tablet Take 1 tablet by mouth Daily. 30 tablet 1 HYDROcodone-acetaminophen (NORCO) 7.5-325 mg per tablet 1 tablet every 6 hours as neede d for pain. 15 tablet 0 Lactulose 20 GM/30ML SOLN Take 20 g by mouth 3 times daily. or more to produce 2-3 soft stools a day. 946 mL 1 LORazepam (ATIVAN) 1 mg tablet Take 1 tablet by mouth every 6 hours as needed for Anxie ty (alcohol withdrawal). (Patient not taking: Reported on 09/30/2017) 20 tablet 0 potassium chloride (K-DUR) 20 mEq ER tablet Take 1 tablet by mouth Daily. 30 tablet 1 triamcinolone (KENALOG) 0.1% cream Apply thin film to affected area(s) three times pasquale y for 2 weeks. Avoid face and groin areas (Patient not taking: Reported on 09/30/2017) 28.4 g 2 No current facility-administered medications on file prior to visit. No Known Allergies ROS: Denies shortness of breath, palpitations. Denies fever, cough colds. Denies any new bladder or bowel disturbances. Physical Examination: BP 130/74 | Pulse 68 | Temp 37.1 C (98.7 F) (Temporal) | Ht 1.803 m (5' 10.98") | W t 115.2 kg (254 lb) | SpO2 98% | BMI 35.45 kg/m General Appearance: Patient not in pain or any respiratory distress. HEENT: [place] conjunctivae, anicteric sclerae. No neck vein engorgement. Thyroid not enlarg ed. Respiratory: Clear breath sounds. No crackles/wheezes. Cardiovascular: Good S1S2, No murmurs. No rubs/gallops. Rhythm regular. Musculoskeletal: No pedal edema. No open wounds. GI: Abdomen soft with normoactive bowel sounds. No rebound tenderness or guarding. Umbilic al hernia. No CVA tenderness. No masses/bruits. (-) Sifuentes's sign (-) caput medusae or spider angiomata (-) Asterixis Reviewed ER physician notes and work up. Assessment: 1. Chronic hepatitis C without hepatic coma (HCC) CBC with Differential Comprehensive Metabolic Panel Hemoglobin A1C Hepatitis C RNA, Quant, NAAT Protime INR Ammonia US Abdomen Limited 2. Contusion of left chest wall, subsequent encounter 3. Alcoholism (HCC) US Abdomen Limited 4. Smoking Plan: He is to do blood work today as shown above. Obtain updated Liver US. Referral to GI. We discuss ETOH and smoking cessation. He is not motivated to quit these. He is advised to see GI to discuss his situation. We discuss that for as long as he is drinking, he may not receive treatment. We discuss the potential life threatening complications of untreated hepatitis C and contin ued alcohol intake. He understands and replies that he "has had a good life". Spent 25 minutes in gjlb-iv-dfxe time with the patient, with greater than 50% of time spent in counseling and discussion of the above mentioned problems. Return in about 3 months (around 12/28/2017) for Annual Physical. I, Orly Villavicencio MD, personally performed the services described in this documentation as sc ribed by Nadja Khan CMA, and the documentation is both accurate and complete. Encounter Note Electronically Signed by: Orly Villavicencio MD 10/03/2017 documented i n this encounter Plan of Treatment Not on filedocumented as of this encounter Results Ammonia (09/30/2017 5:09 PM PST) + +--------+ + + + | Component | Value | Ref Range | Performed | Pathologist | | | | | At | Signature | + +--------+ + + + | Ammonia | 46 (H) | 11 - 35 umol/L | [...] + + + + + | [facility]. | [address] | [place] | [phone] | | [facility] | | [address] | | | - LABORATORY | | | | + + + + + Protime INR (09/30/2017 5:09 PM PST) + + + + + + | Component | Value | Ref Range | Performed | Pathologist | | | | | At | Signature | + + + + + + | Prothrombin | 14.3 (H) | 11.3 - 13.9 | [facility] | | | Time | | seconds | [facility] | | | | | | MEDICAL | | | | | | CENTER - | | | | | | LABORATORY | | + + + + + + | INR | 1.12 (H)Comment: Usual | 0.90 - 1.10 | [facility] | | | | Oral Anticoagulation | | [facility] | | | | Range: 2.0 [...] ST[address] | [address] | [place] | [phone] | | [facility] | | [address] | | | - LABORATORY | | | | + + + + + Hepatitis C RNA, Quant, NAAT (09/30/2017 5:09 PM PST) + + + + + + | Component | Value | Ref Range | Performed | Pathologist | | | | | At | Signature | + + + + + + | HCV | [id number] | IU/mL | [facility]FER[facility] | | | Quantitativ | | | LAB [facility] | | | e | | | - BKR | | + + + + + + | HCV-LOG 10 | 5.823 | log10 IU/mL | REFERENCE | | | | | | LAB [facility] | | | | | | - BKR | | + + + + + + | TEST | CommentComment: The | | REFERENCE | | | INFORMATION | quantitative range of | | LAB [facility] | | | | this assay is 15 IU/mL | | - BKR | | | | to 100 million IU/mL. | | | | + + + + + + + + | Specimen | + + | Blood | + + + + + | Narrative | Performed At | + + + | Performed at: 01 - [facility] [address], | REFERENCE LAB | | [place] [id number] Maintenance Service Technician: Jatin Hernandez MD, Phone: | [place] | | [phone] | | + + + + + + + + | Performing | Address | City/State/Zipcode | Phone Number | | Organization | | | | + + + + + | REFERENCE LAB | [address] | [place], [place] | [phone] | | [facility] | [place] | [address] | | + + + + + Hemoglobin A1C (09/30/2017 5:09 PM PST) + +-------+ + + + | Component | Value | Ref Range | Performed | Pathologist | | | | | At | Signature | + +-------+ + + + | Hemoglobin | 5.5 | 4.3 - 6.0 % | [facility] | | | A1c | | | [facility] | | | | | | MEDICAL | | | | | | CENTER - | | | | | | LABORATORY | | + +-------+ + + + | Estimated | 111 | mg/dL | [facility] | | | [...] + | [facility] | [address] | [place] | [phone] | | [facility] | | [address] | | | - LABORATORY | | | | + + + + + Comprehensive Metabolic Panel (09/30/2017 5:09 PM PST) + + + + + + | Component | Value | Ref Range | Performed | Pathologist | | | | | At | Signature | + + + + + + | Na | 136 | 136 - 149 | [facility] | | | | | mmol/L | [facility] | | | | | | MEDICAL | | | | | | CENTER - | | | | | | LABORATORY | | + + + + + + | K | 4.2 | 3.5 - 5.1 | [facility] | [...] + + | CO2 | 27 | 24 - 31 mmol/L | [facility] | | | | | | [facility] | | | | | | MEDICAL | | | | | | CENTER - | | | | | | LABORATORY | | + + + + + + | Anion Gap | 6 | 3 - 16 mmol/L | [facility] | | | | | | [facility] | | | | | | MEDICAL | | | | | | CENTER - | | | | | | LABORATORY | | + + + + + + | Glucose | 95 | 70 - 109 mg/dL | [facility] | | | | | | [facility] | | | | | | MEDICAL | | | | | | CENTER - | | | | | | LABORATORY | | + + + + + + | BUN | 8 | 7 - 18 mg/dL | [facility] [...] | non- | FILTRATION | mL/min/1.73m2 | [facility] | | | Faroese | RATE,ESTIMATED | | MEDICAL | | | | mL/min/[id number] than | | CENTER - | | [...] + + + + | Calcium | 9.0 | 8.3 - 10.5 | [facility] | | | | | mg/dL | [facility] | | | | | | MEDICAL | | | | | | CENTER - | | | | | | LABORATORY | | + + + + + + | Albumin | 3.0 (L) | 3.2 - 5.0 g/dL | [facility] | | | | | | [facility] | | | | | | MEDICAL | | | | | | CENTER - | | | | | | LABORATORY | | + + + + + + | Bilirubin | 1.0 | 0.1 - 1.5 mg/dL | [facility] | | | Total | | | [facility] | | | | | | MEDICAL | | | | | | CENTER - | | | | | | LABORATORY | | + + + + + + | Total | 8.5 (H) | 6.0 - 7.8 g/dL | [facility] | | | Protein | | | [facility] | | | | | | MEDICAL | | | | | | CENTER - | | | | | | LABORATORY | | + + + + + + | AST | 92 (H) | 10 - 42 U/L | [facility] | | | | | | [facility] | | | | | | MEDICAL | | | | | | CENTER - | | | | | | LABORATORY | | + + + + + + | ALT | 60 (H) | 6 - 45 U/L | [facility] | | | | | | [facility] | | | | | | MEDICAL | | | | | | CENTER - | | | | | | LABORATORY | | + + + + + + | Alkaline | 129 (H) | 40 - 110 U/L | [facility] | | | Phosphatase | | | [facility] | | | | | | MEDICAL | | | | | | CENTER - | | | | | | LABORATORY | | + + + + + + | Globulin | 5.5 (H) | 2.1 - 3.8 g/dL | [facility] | | | | | | [facility] | | | | | | MEDICAL | | | | | | CENTER - | | | | | | LABORATORY | | + + + + + + | Albumin/Masha | 0.5 (L) | 0.8 - 2.0 | [facility] | | | bulin Ratio | | | [facility] | | | | | | MEDICAL | | | | | | CENTER - | | | | | | LABORATORY | | + + + + + + | BUN/Creatin | 10.3 | | [facility] | | | ine [...] | + + + + + | [facility] | [address] | [place] | [phone] | | [facility] | | [address] | | | - LABORATORY | | | | + + + + + CBC with Differential (09/30/2017 5:09 PM PST) + + + + + + | Component | Value | Ref Range | Performed | Pathologist | | | | | At | Signature | + + + + + + | White Blood | 10.3 | 4.0 - 11.0 K/uL | [facility] | | | Cells | | | [facility] | | | | | | MEDICAL | | | | | | CENTER - | | | | | | LABORATORY | | + + + + + + | Red Blood | 5.03 | 4.30 - 5.70 | [facility] | | | Cells | | M/uL | [facility] | | | | | | MEDICAL | | | | | | CENTER - | | | | | | LABORATORY | | + + + + + + | Hemoglobin | 16.3 | 13.5 - 18.0 | [facility] | | | | | g/dL | [facility] | | | | | | MEDICAL | | | | | | CENTER - | | | | | | LABORATORY | | + + + + + + | Hematocrit | 48.1 | 40.0 - 51.0 % | [facility] | | | | | | [facility] | | | | | | MEDICAL | | | | | | CENTER - | | | | | | LABORATORY | | + + + + + + | MCV | 95.6 | 83.0 - 101.0 fL | [facility] | | | | | | [facility] | | | | | | MEDICAL | | | | | | CENTER - | | | | | | LABORATORY | | + + + + + + | MCH | 32.3 | 28.0 - 35.0 pg | [facility] | | | | | | [facility] | | | | | | MEDICAL | | | | | | CENTER - | | | | | | LABORATORY | | + + + + + + | MCHC | 33.8 | 32.0 - 36.0 | [facility] | | | | | g/dL | [facility] | | | | | | MEDICAL | | | | | | CENTER - | | | | | | LABORATORY | | + + + + + + | RDW-CV | 14.0 | <15.0 % | [facility] | | | | | | [facility] | | | | | | MEDICAL | | | | | | CENTER - | | | | | | LABORATORY | | + + + + + + | Platelet | 160 | 140 - 440 K/uL | [facility] | | | Count | | | [facility] | | | | | | MEDICAL | | | | | | CENTER - | | | | | | LABORATORY | | + + + + + + | MPV | 7.5 | fL | [facility] | | | | | | [facility] | | | | | | MEDICAL | | | | | | CENTER - | | | | | | LABORATORY | | + + + + + + | % | 62.8 | 45.0 - 82.0 % | [facility] | | | Neutrophils | | | [facility] | | | | | | MEDICAL | | | | | | CENTER - | | | | | | LABORATORY | | + + + + + + | % | 21.6 | 20.0 - 45.0 % | [facility] | | | Lymphocytes | | | [facility] | | | | | | MEDICAL | | | | | | CENTER - | | | | | | LABORATORY | | + + + + + + | % Monocytes | 11.7 | 4.0 - 12.0 % | [facility] | | | | | | [facility] | | | | | | MEDICAL | | | | | | CENTER - | | | | | | LABORATORY | | + + + + + + | % | 3.4 | 0.0 - 5.0 % | [facility] | | | Eosinophils | | | [facility] | | | | | | MEDICAL | | | | | | CENTER - | | | | | | LABORATORY | | + + + + + + | % Basophils | 0.5 | 0.0 - 1.0 % | [facility] | | | | | | [facility] | | | | | | MEDICAL | | | | | | CENTER - | | | | | | LABORATORY | | + + + + + + | Absolute | 6.50 | 1.80 - 8.50 | [facility] | | | Neutrophils | | K/uL | [facility] | | | | | | MEDICAL | | | | | | CENTER - | | | | | | LABORATORY | | + + + + + + | Absolute | 2.20 | 0.60 - 3.20 | [facility] | | | Lymphocytes | | K/uL | [facility] | | | | | | MEDICAL | | | | | | CENTER - | | | | | | LABORATORY | | + + + + + + | Absolute | 1.20 (H) | 0.00 - 1.00 | [facility] | | | Monocytes | | K/uL | [facility] | | | | | | MEDICAL | | | | | | CENTER - | | | | | | LABORATORY | | + + + + + + | Absolute | 0.40 | 0.00 - 0.40 | [facility] | | | Eosinophils | | K/uL | [facility] | | | | | | MEDICAL | | | | | | CENTER - | | | | | | LABORATORY | | + + + + + + | Absolute | 0.10 | 0.00 - 0.10 | [facility] | [...] [address] | [place] | [phone] | | [facility] | | [address] | | | - LABORATORY | | | | + + + + + documented in this encounter Visit Diagnoses + + | Diagnosis | + + | Chronic hepatitis C without hepatic coma (HCC) - Primary | + + | Contusion of left chest wall, subsequent encounter | + + | Alcoholism (HCC) Other and unspecified alcohol dependence, unspecified drinking | | behavior | + + | Smoking Tobacco use disorder | + + documented in this encounter
--- OUTSIDE RECORDS SUMMARY | ~2020-04-16 | XMS | Encounter Summary ---
Demographics + + + | Address | [address] | | | [place] [address] | + + + | Home Phone | | + + + | Preferred Language | Unknown | + + + | Marital Status | Single | + + + | Hinduism Affiliation | Unknown | + + + | Race | or | + + + | Ethnic Group | Not or | + + + Author + + + | Author | [facility] | | | and [place] | + + + | Organization | [facility] | | | [...] Team Providers + +------+ + | Care Shells Inspector Name | Role | Phone | + +------+ + | Orly Villavicencio MD | PCP | | + +------+ + Reason for Visit +--------+--------+ + | Reason | Onset | Comments | | | Date | | +--------+--------+ + | Other | 03/30/ | | | | 2015 | | +--------+--------+ + Encounter Details +--------+ + + + + | Date | Type | Department | Care Team | Description | +--------+ + + + + | 03/30/ | Telephone | [facility] | Orly Villavicencio | Other | | 2016 | | MEDICINE [address] | [address] | | | | | [place], | [place] | | | | | [place] [address] | [place] [address] | | | | | [phone] | [phone] | | | | | | | [...] Telephone Encounter - Natalia Hastings RN - 03/30/2016 4:46 PM PDTHeather calls. She says patient does not want any information to go to [facility]. She says, "patient's x- wo rks there and reads his information". FYI to Dr Villavicencio. Lesia says she will notify other providers not to send information to [facility], as well documented in this encounter Plan of Treatment Not on filedocumented as of this encounter Visit Diagnoses Not on filedocumented in this encounter
--- OUTSIDE RECORDS SUMMARY | ~2020-04-16 | XMS | Encounter Summary ---
Demographics + + + | Address | [address] | | | [place] [address] | + + + | Home Phone | | + + + | Preferred Language | Unknown | + + + | Marital Status | Single | + + + | Faith Affiliation | Unknown | + + + [...] Team Providers + +------+ + | Care Vp Customer Service Name | Role | Phone | + [...] + | 12/22/ | Patient | [facility] | Orly Villavicencio | Preventive | | 2017 | Outreach | [address] | [address] | Screening, PHST | | | | [place], | [facility] | Colon Cancer | | | | [place] [address] | [place] [address] | Screening | | | | [phone] | [phone] | | | | | | | [...]
--- OUTSIDE RECORDS SUMMARY | ~2020-04-16 | XMS | Clinical Summary ---
Demographics + + + | Address | [address] | | | [place] [address] | + + + | Home Phone | | + + + | Preferred Language | Unknown | + + + | Marital Status | Single | + + + | Judaism Affiliation | Unknown | + + + | Race | or | + + + | Ethnic Group | Not or | + + + Author + + + | Author | [facility] | | | and [place] | + + + | Organization | [facility] | | | and [...] Team Providers + +------+ + | Care Chiseler Head Name | Role | Phone | + +------+ + | Orly Villavicencio MD | PCP | | + +------+ + Allergies No Known Allergies Medications + + + +---------+------+------+-------+ | Medication | Sig | Dispensed | Refills | Star | End | Statu | | | | | | t | Date | s | | | | | | Date | | | + + + +---------+------+------+-------+ | Lactulose 20 | Take 20 g by mouth 3 | 2000 mL | 1 | 08/2 | | Activ | | GM/30ML SOLN | times daily. or | | | 7/20 | | e | | | more to produce 2-3 | | | 19 | | | | | soft stools a day. | | | | | | + + + +---------+------+------+-------+ | benzonatate | Take 1 capsule by | 30 | 0 | 03/2 | | Activ | | (TESSALON) 200 MG | mouth 3 times daily | capsule | | 7/20 | | e | | capsule | as needed for Cough. | | | 20 | | | + + + +---------+------+------+-------+ | acetaminophen | Take 650 mg by mouth | | 0 | | | Activ | | (TYLENOL) 325 mg | every 4 hours as | | | | | e | | tablet | needed for Pain. | | | | | | + + + +---------+------+------+-------+ | ibuprofen (ADVIL, | Take 400 mg by mouth | | 0 | | | Activ | | MOTRIN) 400 mg | every 6 hours as | | | | | e | | tablet | needed for Pain. | | | | | | + + + +---------+------+------+-------+ | cetirizine | Take 10 mg by mouth | | 0 | | | Activ | | (ZYRTEC) 10 mg | Daily. | | | | | e | | tablet | | | | | | | + + + +---------+------+------+-------+ | LORazepam (ATIVAN) | Take 1 tablet by | 20 | 0 | 04/0 | | Activ | | 1 mg tablet | mouth every 6 hours | tablet | | 6/20 | | e | | | if needed for | | | 20 | | | | | anxiety | | | | | | + + + +---------+------+------+-------+ | spironolactone | Take 1 tablet by | 90 | 1 | 04/0 | | Activ | | (ALDACTONE) 50 mg | mouth Daily. | tablet | | 8/20 | | e | | tablet | | | | 20 | | | + + + +---------+------+------+-------+ | escitalopram | Take 1 tablet by | 90 | 0 | 05/0 | | Activ | | (LEXAPRO) 10 mg | mouth a day. | tablet | | 4/20 | | e | | tablet | | | | 20 | | | + + + +---------+------+------+-------+ | furosemide (LASIX) | take 1 tablet by | 90 | 1 | 07/2 | | Activ | | 40 mg tablet | mouth once daily. | tablet | | 4/20 | | e | | | | | | 20 | | | + + + +---------+------+------+-------+ Active Problems + + + | Problem | Noted Date | + + + | Paroxysmal atrial fibrillation | 11/26/2019 | + + + | Chronic hepatitis C without hepatic coma | 10/03/2017 | + + + | Alcoholic hepatitis without ascites | 04/28/2015 | + + + | Drug use | 04/28/2015 | + + + | Elevated LFTs | 04/28/2015 | + + + Encounters +--------+ + + + + | Date | Type | Specialty | Care Team | Description | +--------+ + + + + | 03/14/ | Refill | Internal Medicine | Orly Villavicencio | Medication Refill | | 2020 | | | MD Shimon | | +--------+ + + + + | 02/02/ | Telephone | Internal Medicine | Orly Villavicencio | Results | | 2020 | | | MD Shimon | | +--------+ + + + + from Last 3 Months Social History + + + +--------+------+ | [...] + + + | Blood Pressure | 132/80 | 11/26/2019 1:37 PM | | | | | PDT | | + + + + + | Pulse | 74 | 11/26/2019 1:37 PM | | | | | PDT | | + + + + + | Temperature | 37 C (98.6 F) | 11/26/2019 1:37 PM | | | | | PDT | | + + + + + | Respiratory Rate | 18 | 11/26/2019 1:37 PM | | | | | PDT | | + + + + + | Oxygen Saturation | 97% | 11/26/2019 1:37 PM | | | | | PDT | | + + + + + | Inhaled Oxygen | - | - | | | Concentration | | | | + + + + + | Weight | 109.1 kg (240 lb 8.4 | 11/26/2019 1:37 PM | | | | oz) | PDT | | + + + + + | Height | 177.8 cm (5' 10") | 06/19/2019 10:26 AM | | | | | PDT | | + + + + + | Body Mass Index | 34.51 | 06/19/2019 10:26 AM | | | | | PDT | | + + + + + Plan of Treatment + + + + + | Health Maintenance | Due Date | Last | Comments | | | | Done | | + + + + + | Vaccine: | | | | | Pneumococcal 19-64 | 4 | | | | (1 of 1 - PPSV23) | | | | + + + + + | Vaccine: | | | | | Dtap/Tdap/Td (1 - | 7 | | | | Tdap) | | | | + + + + + | Colorectal Cancer | | | | | Screening | 8 | | | | (Colonoscopy) | | | | + + + + + | Vaccine: Zoster (1 | | | | | of 2) | 8 | | | + + + + + | Vaccine: Influenza | | 05/31/20 | | | (#1) | 0 | 13, | | | | | 06/25/20 | | | | | 10 | | + + + + + | Med Mgmt: BUN | | 11/26/19 | | | | 1 | 20, | | | | | 07/03/20 | | | | | 19, | | | | | 06/19/20 | | | | | 19, | | | | | Addition | | | | | al | | | | | history | | | | | exists | | + + + + + | Med Mgmt: Cr | | 11/26/19 | | | | 1 | 20, | | | | | 07/03/20 | | | | | 19, | | | | | 06/19/20 | | | | | 19, | | | | | Addition | | | | | al | | | | | history | | | | | exists | | + + + + + | Med Mgmt: K | | 11/26/19 | | | | 1 | 20, | | | | | 07/03/20 | | | | | 19, | | | | | 10/29/20 | | | | | 19, | | | | | Addition | | | | | al | | | | | history | | | | | exists | | + + + + + | Med Mgmt: Na | | 11/26/19 | | | | 1 | 20, | | | | | 07/03/20 | | | | | 19, | | | | | 06/19/20 | | | | | 19, | | | | | Addition | | | | | al | | | | | history | | | | | exists | | + + + + + | Medication | | 11/26/19 | | | Management | 1 | 20 | | + + + + + | Hepatitis C | Completed | 05/03/20 | | | Screening | | 19, | | | | | 04/25/20 | | | | | 19, | | | | | 04/24/20 | | | | | 19, | | | | | Addition | | | | | al | | | | | history | | | | | exists | | + + + + + Results Not on filefrom Last 3 Months Insurance + +--------+ +--------+ +---------+--------+ | Payer | Benefi | Subscriber | Effect | Phone | Address | Type | | | t Plan | ID | colt | | | | | | / | | Dates | | | | | | Group | | | | | | + +--------+ +--------+ +---------+--------+ | [place] | MEDICA | [id number] | 09/24/19 | [phone] | | Med[place] | | | [place] | | 18-Pre | 2 | | id | | | PLUS | | sent | | | | + +--------+ +--------+ +---------+--------+ + +--------+ +--------+ + + | Guarantor Name | Accoun | Relation to | Date | Phone | Billing Address | | | t Type | Patient | of | | | | | | | | | | + +--------+ +--------+ + + | Hossein Holcomb | Tariq | Self | [birth year] | [address] | | [place] | [place] | | 1956 | [phone] | [place] [address] | | | alex | | | 2 (Home) | | + +--------+ +--------+ + + Advance Directives + + + + + | Type | Date Recorded | Patient | Explanation | | | | Top Dyeing Machine Tender | | + + + + + | Power of | | | | | Overedge Sewer | | | | + + + + + | Advance | 04/06/2015 11:45 | | | | Directive | PM | | | + + + + +
--- OUTSIDE RECORDS SUMMARY | ~2020-04-16 | XMS | Encounter Summary ---
Demographics + + + | Address | [address] | | | [place] [address] | + + + | Home Phone | | + + + | Preferred Language | Unknown | + + + | Marital Status | Single | + + + | Restoration Affiliation | NON | + + + | Race | or | + + + | Ethnic Group | Not or | + + + Author + + + | Author | [facility] | + + + | Organization | [facility] | + + + | Address | Unknown | + + + | Phone | Unavailable | + + + Support + + +---------+ + | Name | Relationship | Address | Phone | + + +---------+ + | Kacey Holcomb | ECON | Unknown | | + + +---------+ + Care Team Providers + +------+ + | Care Personnel Placement Specialist Name | Role | Phone | + +------+ + | Pattie Sims | PCP | | + +------+ + Encounter Details +--------+ + + + + | Date | Type | Department | Care Team | Description | +--------+ + + + + | 07/09/ | Hospital | Registration [address] | Winifred Miranda | | | 2006 | Activity | EILEEN Mcfarlane MD [address] | | | | | [place] Mailcode: [id number] | [address] | | | | | [place], [place] | [place], [place] | | | | | [address] | [address] | | | | | [phone] | [phone] | | | | | | | [...] | + +--------+ + + + | BASIC METABOLIC SET | Urgent | 07/09/2007 | | Results for this | | (NA, K, CL, TCO2, | | 4:39 PM | | procedure are in the | | BUN, CR, GLU, CA) | | PST | | results section. | + +--------+ + + + | CBC ONLY | Urgent | 07/09/2007 | | Results for this | | | | 4:39 PM | | procedure are in the | | | | PST | | results section. | + +--------+ + + + documented in this encounter Results BASIC METABOLIC SET (07/09/2007 4:39 PM PST) + +---------+ + + + | Component | Value | Ref Range | Performed | Pathologist | | | | | At | Signature | + +---------+ + + + | GLUCOSE, | 95 | 60 - 99 mg/dL | [facility] | | | PLASMA | | | DEPARTMENT | | | (LAB) | | | OF | | | | | | PATHOLOGY | | + +---------+ + + + | BUN, PLASMA | 7 | 6 - 20 mg/dL | [facility] | | | (LAB) | | | DEPARTMENT | | | | | | OF | | | | | | PATHOLOGY | | + +---------+ + + + | CREATININE | 0.9 | 0.7 - 1.3 mg/dL | [facility] | | | PLASMA | | | DEPARTMENT | | | (LAB) | | | OF | | | | | | PATHOLOGY | | + +---------+ + + + | SODIUM, | 135 (L) | 136 - 145 | [facility] | | | PLASMA | | mmol/L | DEPARTMENT | | | (LAB) | | | OF | | | | | | PATHOLOGY | | + +---------+ + + + | POTASSIUM, | 3.8 | 3.5 - 5.1 | [facility] | | | PLASMA | | mmol/L | DEPARTMENT | | | (LAB) | | | OF | | | | | | PATHOLOGY | | + +---------+ + + + | CHLORIDE, | 100 | 98 - 107 mmol/L | [facility] | | | PLASMA | | | DEPARTMENT | | | (LAB) | | | OF | | | | | | PATHOLOGY | | + +---------+ + + + | TOTAL CO2, | 27 | 23 - 29 mmol/L | [facility] | | | PLASMA | | | DEPARTMENT | | | (LAB) | | | OF | | | | | | PATHOLOGY | | + +---------+ + + + | CALCIUM, | 8.3 (L) | 8.5 - 10.5 | [facility] | | | PLASMA | | mg/dL | DEPARTMENT | | | (LAB) | | | OF | | | | | | PATHOLOGY | | + +---------+ + + + + + | Specimen | + + | | + + + + + + + | Performing | Address | City/State/Zipcode | Phone Number | | Organization | | | | + + + + + | [facility] | [address] | [place] [address] | | | PATHOLOGY | [address] | | | + + + + + | [facility] | [facility] | [place] [address] | | | PATHOLOGY | [address] | | | + + + + + CBC ONLY WITH PLATELET (07/09/2007 4:39 PM PST) + + + + + + | Component | Value | Ref Range | Performed | Pathologist | | | | | At | Signature | + + + + + + | WHITE CELL | 5.0 | 4.4 - 11.0 K/cu | [facility] | | | COUNT | | mm | DEPARTMENT | | | | | | OF | | | | | | PATHOLOGY | | + + + + + + | RED CELL | 5.02 | 4.50 - 5.90 | [facility] | | | COUNT | | M/cu mm | DEPARTMENT | | | | | | OF | | | | | | PATHOLOGY | | + + + + + + | HEMOGLOBIN | 16.4 | 13.5 - 17.5 | [facility] | | | | | g/dL | DEPARTMENT | | | | | | OF | | | | | | PATHOLOGY | | + + + + + + | HEMATOCRIT | 46.0 | 41.0 - 53.0 % | [facility] | | | | | | DEPARTMENT | | | | | | OF | | | | | | PATHOLOGY | | + + + + + + | MCV | 91.6 | 80.0 - 96.0 fL | [facility] | | | | | | DEPARTMENT | | | | | | OF | | | | | | PATHOLOGY | | + + + + + + | MCHC | 35.7 (H) | 33.4 - 35.5 | [facility] | | | | | g/dL | DEPARTMENT | | | | | | OF | | | | | | PATHOLOGY | | + + + + + + | RDW | 13.4 | 11.5 - 15.0 % | [facility] | | | | | | DEPARTMENT | | | | | | OF | | | | | | PATHOLOGY | | + + + + + + | PLATELET | 213 | 150 - 400 K/cu | [facility] | | | COUNT | | mm | DEPARTMENT | | | | | | OF | | | | | | PATHOLOGY | | + + + + + + + + | Specimen | + + | | + + + + + + + | Performing | Address | City/State/Zipcode | Phone Number | | Organization | | | | + + + + + | [facility] | [address] | [place], [place] [address] | | | PATHOLOGY | [address] | | | + + + + + | [facility] | [address] | [place] [address] | | | PATHOLOGY | [address] | | | + + + + + documented in this encounter Visit Diagnoses Not on filedocumented in this encounter"
--- OUTSIDE RECORDS SUMMARY | ~2020-04-16 | XMS | Encounter Summary ---
Demographics + + + | Address | [address] | | | [place] [address] | + + + | Home Phone | | + + + | Preferred Language | Unknown | + + + | Marital Status | Single | + + + | Uatsdin Affiliation | Unknown | + + + [...] Team Providers + +------+ + | Care Cloth Cutter Name | Role | Phone | + +------+ + | Orly Villavicencio MD | PCP | | + +------+ + Reason for Visit + +--------+ + | Reason | Onset | Comments | | | Date | | + +--------+ + | Medication Refill | 02/24/ | | | | 2017 | | + +--------+ + Encounter Details +--------+--------+ + + + | Date | Type | Department | Care Team | Description | +--------+--------+ + + + | 02/24/ | Refill | [facility] | Orly Villavicencio | Medication Refill | | 2017 | | [facility] [address] | [address] | | | | | [place], | [facility] | | | | | [place] [address] | [facility] [place] [address] | | | | | [phone] | [phone] | | | | | | | [...] this encounter Miscellaneous Notes Telephone Encounter - Annalee Gautam - 02/24/2017 4:03 PM PDTRx has amie faxed to [facility] elephone Encounter - Yusra Carter RN - 02/24/2017 1:07 PM PDTPlease fax prescription to Patty [facility] signed by Yusra Carter RN at 02/24/2017 1:07 PM PDTTelephone Encounter - Yusra Carter RN - 02/24/2017 10:59 AM PDTMedication Lorazepam 1 mg Quantity #20 Last refill date 03/23/16 Pharmacy [facility] Last appointment 03/22/16 Next appointment no future appointments scheduled elephone Encounter - Yusra Carter RN - 02/24/2017 8:45 AM PDTGirlfriend called and requested refill for t he Furosemide and Potassium and Lorazepam. Last refill was March 2016 for 2 months. I questioned her about compliance with the medica tions. She states that he was off the medication for a while but has resumed the medications . She also reports that his right lower extremity is swollen and discolored and is very painf ul. This has been on going for at least a week and is getting worse. Advised evaluation in E [place] and to call for an ER followup after he was seen. documented in this e ncounter Plan of Treatment Not on filedocumented as of this encounter Visit Diagnoses Not on filedocumented in this encounter"
--- OUTSIDE RECORDS SUMMARY | ~2020-04-16 | XMS | Encounter Summary ---
Demographics + + + | Address | [address] | | | [place] [address] | + + + | Home Phone | | + + + | Preferred Language | Unknown | + + + | Marital Status | Single | + + + | Orthodox Affiliation | Unknown | + + + | Race | or | + + + | Ethnic Group | Not or | + + + Author + + + | Author | [facility] | | | and [place] | + + + | Organization | [facility] | | | [...] Team Providers + +------+ + | Care Grinder Lap Name | Role | Phone | + +------+ + | Orly Villavicencio MD | PCP | | + +------+ + Reason for Visit + +--------+ + | Reason | Onset | Comments | | | Date | | + +--------+ + | Referral (Follow up) | 07/17/ | GI | | | 2019 | | + +--------+ + Encounter Details +--------+ + + + + | Date | Type | Department | Care Team | Description | +--------+ + + + + | 07/17/ | Telephone | [facility] | [facility] Referral (Follow up) | | 2019 | | GASTROENTEROLOGY | BONIFACIO [address] | (GI) | | | | [address] | [address] | | | | | [address] [place] | [place] | | | | | [address] | [id number] | | | | | [phone] | | | +--------+ + + + [...] this encounter Miscellaneous Notes Telephone Encounter - Sarah Sanchez CMA - 07/30/2019 8:14 AM PSTInformed PSR to keep this patient's appointment. 8 :14 AM PSTTelephone Encounter - Martina Bill ARNP - 07/28/2019 8:24 PM PSTWe are go ing to keep appointment for August. This is the final chance to show up. Thank you Electron ically signed by BONIFACIO Martinez at 07/28/2019 8:24 PM PSTTelephone Encounter - Nay Villanueva RN - 07/27/2019 12:28 PM PSTCalling girlfriend Lesia @ [phone]. Left message for Lesia to please call back. elephone Encounter - Orly Villavicencio MD - 07/25/2019 12:23 PM PSTPlease let Lesia know of this, Natalia. Keep appt in August. If they miss that, he cannot see a GI specialist locally [facility] Thanks. elephone En counter - Martina Bill ARNP - 07/25/2019 11:59 AM PSTWe have really tried to be acco mmodating. Not sure how many more chances we give him. Thank you elephone Encounter - Kendy Ashby - 1 09/16/2018 1:38 PM PSTPatient has been scheduled 7 times to see Brmirela, 3 were same day cancel lations, 1 was within 24 hrs, and 3 were no shows. We have sent him 3 letters, one of which was to dismiss him, but Dr. Villavicencio's office had requested that we see patient, Aleyda was ok to see him, and he still cancelled appt. Please advise if still willing to see patient. He is rescheduled for an apt in August. documented in this encounter Plan of Treatment Not on filedocumented as of this encounter Visit Diagnoses Not on filedocumented in this encounter
--- OUTSIDE RECORDS SUMMARY | ~2020-04-16 | XMS | Encounter Summary ---
Demographics + + + | Address | [address] | | | [place] [address] | + + + | Home Phone | | + + + | Preferred Language | Unknown | + + + | Marital Status | Single | + + + | Anabaptism Affiliation | Unknown | + + + [...] Team Providers + +------+ + | Care Hydroelectric Production Technician Name | Role | Phone | [...] + | 04/12/ | Refill | [facility] | Orly Villavicencio | Medication Refill | | 2018 | | MEDICINE [address] | [address] | | | | | [place], | [place] | | | | | [place] [address] | [place] [address] | | | | | [phone] | [phone] | | | | | | | [...] PM PDTDr Saud RX lorazepam sent to lead front end developer to please fax to [facility]. ddend um Note - David Bowers RN - 04/17/2018 10:59 AM PDT Addended by: DAVID BOWERS on: 10:59 Modules accepted: Orders elephone Encounte r - David Bowers RN - 04/17/2018 10:50 AM PDTMedication -LORAZEPAM Quantity -20 Amount of medication remaining -UNKNOWN Last refill date -12/01/17 [facility] Last appointment -12/06/17 Next appointment -05/02/18 [...]
--- OUTSIDE RECORDS SUMMARY | ~2020-04-16 | XMS | Encounter Summary ---
Demographics + + + | Address | [address] | | | [place] [address] | + + + | Home Phone | | + + + | Preferred Language | Unknown | + + + | Marital Status | Single | + + + | Mormon Affiliation | Unknown | + + + [...] Team Providers + +------+ + | Care Pan Devulcanizer Name | Role | Phone | + +------+ + | Orly Villavicencio MD | PCP | | + +------+ + Reason for Visit +---------+--------+ + | Reason | Onset | Comments | | | Date | | +---------+--------+ + | Results | 05/02/ | | | | 2018 | | +---------+--------+ + Encounter Details +--------+ + + + + | Date | Type | Department | Care Team | Description | +--------+ + + + + | 05/02/ | Telephone | [facility] | Orly Villavicencio | Results | | 2018 | | MEDICINE [address] | [address] | | | | | [place], | [place] | | | | | [place] [address] | [place] [address] | | | | | [phone] | | | | | | | [...] Telephone Encounter - Natalia Hastings RN - 05/02/2018 11:08 AM PDTPatient notified and melissa balized understanding. Agrees to this plan. Lio Dave pharmacist notified. Added a telephone note to Please call him the to remind him to do US and the blood te st. elephone Encounter - Orly Villavicencio MD - 05/02/2018 10:41 AM PDTPlease let patient know labs showed : Continued abnormality of his liver function tests. Please make the following changes in medications: Stop potassium - I called this in today - please d/c at the pharmacy. Continue furosemide, but take 2 a day in the AM. Start spironolactone 50 mg once a day. He has an abdominal US on the . Important to do follow up bloodwork at that time, to ma ke sure his kidneys and electrolytes are doing OK on these changes. Order in EMR. Please call him the to remind him to do US and the blood test. Thanks. documented i n this encounter Plan of Treatment Not on filedocumented as of this encounter Results Comprehensive Metabolic Panel (05/12/2018 1:22 PM PDT) + + + + + + | Component | Value | Ref Range | Performed | Pathologist | | | | | At | Signature | + + + + + + | Na | 131 (L) | 136 - 149 | [facility] | | | | | mmol/L | [facility] | | | | | | MEDICAL | | | | | | CENTER - | | | | | | LABORATORY | | + + + + + + | K | 3.2 (L) | 3.5 - 5.1 | [facility] | | | | | mmol/L | [facility] | | | | | | MEDICAL | | | | | | CENTER - | | | | | | LABORATORY | | + + + + + + | Cl | 93 (L) | 98 - 109 [...] + + + | Anion Gap | 8 | 3 - 16 mmol/L | [facility] | | | | | | [facility] | | | | | | [facility] | | | | | | CENTER - | | | | | | LABORATORY | | + + + + + + | Glucose | 161 (H) | 70 - 109 [...] + + + + | Creatinine | 0.90 | 0.60 - 1.30 | [facility] | | | | | mg/dL | [facility] | | | | | | MEDICAL | | | | | | CENTER - | | | | | | LABORATORY | | + + + + + + | eGFR, | >60Comment: GLOMERULAR | >=60 | [facility] | | | non- | FILTRATION | mL/min/1.73m2 | [facility] | | | [place] | RATE,ESTIMATED | | MEDICAL | | | | mL/min/1.09s4Csgc than | | CENTER - | | [...] + + + + | Calcium | 8.3 | 8.3 - 10.5 | [facility] | | | | | mg/dL | [facility] | | | | | | MEDICAL | | | | | | CENTER - | | | | | | LABORATORY | | + + + + + + | Albumin | 2.6 (L) | 3.2 - 5.0 g/dL | [facility] | | | | | | [facility] | | | | | | MEDICAL | | | | | | CENTER - | | | | | | LABORATORY | | + + + + + + | Bilirubin | 4.6 (H) | 0.1 - 1.5 mg/dL | [facility] | | | Total | | | [facility] | | | | | | MEDICAL | | | | | | CENTER - | | | | | | LABORATORY | | + + + + + + | Total | 9.0 (H) | 6.0 - 7.8 [...] + + + + | Alkaline | 75 | 40 - 110 U/L | [facility] | | | Phosphatase | | | [facility] | | | | | | MEDICAL | | | | | | CENTER - | | | | | | LABORATORY | | + + + + + + | Globulin | 6.4 (H) | 2.1 - 3.8 [...] + + + + | BUN/Creatin | 4.4 | | [facility] | | | ine [...] + + | [facility] | [address] | [place] | [phone] | | [facility] | | [address] | | | - LABORATORY | | | | + + + + + documented in this encounter Visit Diagnoses + + | Diagnosis | + + | Chronic hepatitis C without hepatic coma (HCC) - Primary | + + documented in this encounter"
--- OUTSIDE RECORDS SUMMARY | ~2020-04-16 | XMS | Encounter Summary ---
Demographics + + + | Address | [address] | | | [place] [address] | + + + | Home Phone | | + + + | Preferred Language | Unknown | + + + | Marital Status | Single | + + + | Samaritan Affiliation | Unknown | + + + | Race | or | + + + | Ethnic Group | Not or | + + + Author + + + | Author | [facility] | | | and [place] | + + + | Organization | [facility] | | [...] Team Providers + +------+ + | Care Ship'S Officer Name | Role | Phone | + +------+ + | Orly Villavicencio MD | PCP | | + +------+ + Reason for Visit +---------+--------+ + | Reason | Onset | Comments | | | Date | | +---------+--------+ + | Results | 10/13/ | | | | 2018 | | +---------+--------+ + Encounter Details +--------+ + + + + | Date | Type | Department | Care Team | Description | +--------+ + + + + | 10/13/ | Telephone | [facility] | Orly Villavicencio | Results | | 2018 | | [address] | [address] | | | | | [place], | [place] | | | | | [place] [address] | [place] [address] | | | | | [phone] | [phone] | | | | | | | [...] Encounter - Orly Villavicencio MD - 10/26/2017 1:10 PM PSTNoted. They have been made aware of consequences of non-compliance. See last OV note. elephone En counter - Natalia Hastings RN - 10/25/2017 5:15 PM PSTHeather notifed needs to see GI. She says GI has already reached out to her to schedule. Lesia says she and patient are worki ng and are not willing to take a day off for this. Lesia again notified it is highly recommended to see GI. Lesia notified to please do abdomen US. She says both she and patient work and both do n ot currently agree to take time off work for this. They refuse to schedule at this time. This routed to Dr Villavicencio for review. We are unable to get this scheduled as patient and hea ther refuse to take time off work for this now.Electronically signed by TI Pretty t 10/25/2017 5:18 PM PSTTelephone Encounter - Sarah Camarillo - 10/25/2017 3:40 PM PSTHeath er returned call, please try again at [phone]. Electronically signed by Sarah funez 10/25/2017 3:41 PM PSTTelephone Encounter - Natalia Hastings RN - 10/24/2017 4:51 PM PST Message left for patient to call back.Electronically signed by Natalia Hastings RN at 018 4:52 PM PSTTelephone Encounter - Natalia Hastings RN - 10/13/2017 10:28 AM PSTMessage l eft for patient or Lesia to call back. He still has not done his abdomen US. Will he agr ee to do this? We have made many attempts.Electronically signed by Natalia Hastings RN at 10:29 AM PSTTelephone Encounter - Orly Villavicencio MD - 10/13/2017 7:13 A M PSTPlease let know test for Hep C continues to show active infection. Highly recommend that they see GI. Referral was already sent several days ago. Thanks. documented i n this encounter Plan of Treatment Not on filedocumented as of this encounter Visit Diagnoses Not on filedocumented in this encounter"
--- OUTSIDE RECORDS SUMMARY | ~2020-04-16 | XMS | Encounter Summary ---
Demographics + + + | Address | [address] | | | [place] [address] | + + + | Home Phone | | + + + | Preferred Language | Unknown | + + + | Marital Status | Single | + + + | Muslim Affiliation | Unknown | + + + | Race | or | + + + | Ethnic Group | Not or | + + + Author + + + | Author | [facility] | | | and [place] | + + + | Organization | [facility] | | | [...] Team Providers + +------+ + | Care Injury/Safety Hazard Assessment Name | Role | Phone | + [...] | 03/14/ | Refill | [facility] | Orly Villavicencio | Medication Refill | | 2020 | | [address] | [address] | | | | | [place], | [place] | | | | | [place] [address] | [place] [address] | | | | | [phone] | [phone] | | | | | | | [...]
--- OUTSIDE RECORDS SUMMARY | ~2020-04-16 | XMS | Encounter Summary ---
Demographics + + + | Address | [address] | | | [place] [address] | + + + | Home Phone | | + + + | Preferred Language | Unknown | + + + | Marital Status | Single | + + + | Worship Affiliation | Unknown | + + + | Race | or | + + + | Ethnic Group | Not or | + + + Author + + + | Author | [facility] | | | and [place] | + + + | Organization | [facility] | | | and [...] Team Providers + +------+ + | Care Power Transformer Assembler Name | Role | Phone | + [...] + + | 04/24/ | Telephone | [facility] | Orly Villavicencio | Other | | 2015 | | [address] | [address] | | | | | [place], | [place] | | | | | [place] [address] | [place] [address] | | | | | [phone] | | | | | | | [...] up with Dr. Jimenez on 05/02/15 at [facility]. documented in t his encounter Plan of Treatment Not on filedocumented as of this encounter Visit Diagnoses Not on filedocumented in this encounter"
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
--- OUTSIDE RECORDS SUMMARY | ~2020-04-16 | XMS | Encounter Summary ---
Demographics + + + | Address | [address] | | | [place] [address] | + + + | Home Phone | | + + + | Preferred Language | Unknown | + + + | Marital Status | Single | + + + | Mormonism Affiliation | Unknown | + + + | Race | or | + + + | Ethnic Group | Not or | + + + Author + + + | Author | [facility] | | | and [place] | + + + | Organization | [facility] | | | and [...] Team Providers + +------+ + | Care Surface Plate Finisher Name | Role | Phone | + +------+ + | Orly Villavicencio MD | PCP | | + +------+ + Reason for Visit + +--------+ + | Reason | Onset | Comments | | | Date | | + +--------+ + | Hospitalization | 10/24/ | | | | 2020 | | + +--------+ + | Cough | 11/15/ | | | | 2020 | | + +--------+ + | Anxiety | 11/15/ | | | | 2019 | | + +--------+ + Encounter Details +--------+ + + + + | Date | Type | Department | Care Team | Description | +--------+ + + + + | 10/24/ | Telephone | [facility] | Orly Villavicencio | Hospitalization; | | 2019 | | [address] | [address] | Cough; Anxiety | | | | [place], | [place] | | | | | [place] [address] | [place] [address] | | | | | [phone] | [phone] | | | | | | | [...] Telephone Encounter - Nay Sykes RN - 11/16/2019 2:21 PM PDTGirlgrady Graf notifi ed. Patient scheduled for appt on 11/23/19 @ 1330. Instructions reviewed for tessalon perles and lorazepam. Agrees to ED/UC sooner PRN for worsening symptoms. elephone Encounter - Orly Villavicencio MD - 11/16/2019 12:15 PM PDTTessalon perlthalia for cough. Lorazepam refilled. Please schedule appt next week. For worsening symptoms - he will need to be seen at UC or ER. Thanks. elephone En counter - Nay Sykes RN - 11/16/2019 11:32 AM PDTSpoke with Lesia. She reports that patient was up coughing all night long. States this is productive, she is not sure the color of sputum. Reports this cough started 2 nights ago. States patient's throat is hurting, has been hurting since hospital discharge 1.5 weeks ago , states this is from the ventilator. Denies SOB, afebrile. No body aches. Has tried OTC cough medicine, this did not help, she did not know name of medication. Has had no known exposure to someone diagnosed with COVID-19. Notified Lesia that if patient is developing SOB, fever, will need to be seen in UC/ED. She agrees to call ahead. At this time, she is requesting something for patient's cough please. Also reports that patient's anxiety is very high, she states she thinks this is due to rece nt hospital visit and being worried about having to go back. Reports he has taken lorazepam in the past, he is currently out. She states they use [facility]. Lorazepam 1 mg, last filled on 08/08/19 for #10. Last seen 07/03/19, no follow up scheduled. Rx for lorazepam pended as previously ordered. Please advise. elephon e Encounter - Domi Ramirez - 11/16/2019 9:43 AM PDTPatients girlfriend called in to check the status of message. Lesia stated patient was up all night coughing and anxiety is very high. Please advise elephone Encounter - Christina Sifuentes - 11/16/2019 8:07 AM PDTPatients called want ing to speak to the nurse regarding patients cough/sore throat. Please advise? elephone Encounter - Natalia Hastings R N - 11/14/2019 4:03 PM PDTReceived 4 page discharge summary which did not have medication l ist. This was sent for Dr Villavicencio review. Requested more records from [facility]. elephone Encounter - Natalia Hastings RN - 11/14/2019 3:22 PM PDTCalled [facility]. Requested records. Electronically signed by Natalia Hastings RN at 10/21 3:23 PM PDTTelephone Encounter - Natalia Hastings RN - 11/13/2019 1:59 PM PDTSpoke to Lesia. She says patient was discharged from [facility] last week. He has been off alcohol for one month. He told Lesia that he will never drink again as being on a Ventilator for 3 weeks scared him. He is feeling better. "He pulled out of it". Lesia says no discharge instructions were given to patient. Requested Discharge summary from [facility]. Faxed this request to [facility] [phone]/Urgent. elephone Orly Kim MD - 11/12 11:07 AM PDTReviewed. Can we get an update on this patient. Thanks. elephone En elissa - Natalia Hastings RN - 10/29/2019 2:09 PM PDTNotes received and to Dr Villavicencio for re view. elephone Radhat er Natalia Veliz RN - 10/29/2019 11:47 AM PDTCalled [facility]. We need to fax request to [phone]. Request faxed. elepho ne Orly Kim MD - 10/29/2019 11:38 AM PDTPlease obtain records f [facility]. Thanks. elephone En elissa - Natalia Hastings RN - 10/29/2019 9:46 AM PDTPhone call to Lesia, the girlfriend . She says patient went to [facility] ED last Tuesday and is now admitted in [facility]. She says she is not allowed to see patient as his daughter Patricia is not allowing her to vis it. This is what Lesia reports: Patient got some money and was drinking. Last Tuesday night 8 days ago, patient was having breathing problems and was drinking. He has bacterial pneumonia. He is on a ventilator. L ungs are full. Tried to take him off the vent and is unable to due to agitation and breathi ng problems. Heart was shocked due to bad alcohol withdrawal. Dr Villavicencio have you received any communication regarding this from [facility]? If not let me know and I will try to request this. Lesia says the daughter did not let [facility] know that you were his PCP. 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 Lesia says she has this knowledge from other family members of patient. Lesia herself is not allowed to visit. elephone Encounter - Natalia Hastings RN - 10/29/2019 9:37 AM [facility]? For what reason please? elephone Encounter - Christina Sifuentes - 10/25/2019 8:52 AM PSTPatients gf, Lesia wanted the nurse to know that pt was admitted into the hospital. Please advise. Electronically signed by Christina funez 10/25/2019 8:53 AM PSTdocumented in this encounter Plan of Treatment Not on filedocumented as of this encounter Visit Diagnoses Not on filedocumented in this encounter
--- OUTSIDE RECORDS SUMMARY | ~2020-04-16 | XMS | Encounter Summary ---
Demographics + + + | Address | [address] | | | [place] [address] | + + + | Home Phone [...] + + + | Author | [facility] | | | and [place] | + + + | Organization | [facility] | | | [...] Providers + +------+ + | Care Reel Cart Operator Name | Role | Phone | + +------+ + | Brittaney Villavicencio MD | PCP | | + +------+ + Reason for Visit + +--------+ + | Reason | Onset | Comments | | | Date | | + +--------+ + | ER Follow-up | 09/27/ | | | | 2018 | | + +--------+ + Encounter Details +--------+ + + + + | Date | Type | Department | Care Team | Description | +--------+ + + + + | 09/27/ | Telephone | [facility] | Brittaney Villavicencio | ER Follow-up | | 2018 | | MEDICINE WINTER | [address] | | | | | [address] | [place] | | | | | [place] | [place] [address] | | | | | [address] | [phone] | | | | | [phone] | | | +--------+ + + + [...] this encounter Miscellaneous Notes Telephone Encounter - Dodie Hyman - 09/28/2017 2:41 PM PSTGwenther Kevan (girlfriend ) picked up rx / ORDL verified elephone Encounter - Natalia Hastings RN - 09/28/2017 1:57 PM PSTHeather notified a nd RX hydrocodone sent to the helpdesk administrator for Elmer to poultry picker. Again, Elmer notified IF THIS DOES NOT HELP, HE NEEDS TO GO BACK TO ED NIRAV. ELMER VERBALIZED UNDERSTANDING. ddendum Note - Brittaney Villavicencio MD - 09/28/2017 12:50 PM PST Addended by: BRITTANEY VILLAVICENCIO on: 09/28/2017 12:50 Modules accepted: Orders elephone Encounter - Brittaney Villavicencio MD - 09/28/2017 12:48 PM PSTLimited Rx printed. If this does not help, will need to be seen in the ED prior to his appt this Tuesday. Thanks. elephone En counter - Natalia Hastings RN - 09/28/2017 11:36 AM PSTDr Villavicencio, please advise. Patient is having worse pain in the chest today. He is refusing to go to ED. He is wanting stronger p ain medicine. elepho ne Encounter - Sarah Camarillo - 09/28/2017 11:33 AM PSTHeatayla called, says patient does not want to go to the ER and would like to just wait and be seen at his appointment on 09/30 as h tj doesn't have money for gas. Elmer would also like to discuss getting a stronger pain med ication to last until appointment on 09/30. Please call Elmer at [phone]. 1 1:34 AM PSTTelephone Encounter - Natalia Hastings RN - 09/28/2017 8:57 AM PSTHeather calls. She says patient is having worse left side of chest pain today. She says worse than yeste rday. Elmer agrees to get patient back to the ED for worse chest pain. See ED note of yesterday. Elmer asks if Dr Villavicencio could order lab for patient on Tuesday. She is wanting a cholester ol check. Elmer notified to keep appointment with Dr Villavicencio on Tuesday. Elmer notified to get patient back to ED today. She agrees. elephone Encounter - Cuca Cardenas - 09/28/2017 8:09 AM PSTHeather, called back and stated patient is pain and out of control and would lik e patient to be seen today 09/28/17 instead. Otherwise she'll have to go back to the emergency room. elephone Encounter - Natalia Hastings RN - 09/27/2017 5:37 PM PSTPatient notified . Agrees to see Dr Villavicencio th is Tuesday. appt scheduled. Furosemide and KCL sent to [facility]. elephone Encounter - Brittaney Villavicencio MD - 09/27/2017 5:06 PM PSTNeeds appt here this Tuesday. Ok to send furosemide and KCl to pharmacy of choice. He has not been seen here for almost 2 years. Thanks. elephone En elissa - Melissa Blue RN - 09/27/2017 1:31 PM [facility] Date of visit: 09-24-17 Patient complaints: Chest heaviness after falling from back of horse Diagnosis: Chest wall contusion (left) How are you feeling since being home: Some improvement still having cough and taking pain m eds. Any medications ordered this visit: Hydrocodone-acetaminophen Have you started the ordered medication: yes Any questions on the medication: Discussed bowel regimen watch with narcotics and water. Specialty referral: No Has this patient been seen in the ED 5 or more times in the last 6 months: No Follow up needed: Pt request refill of Lasix 20mg one daily (he reports as current dose) an d Potassium 20meq one daily. Noted no recent lab work for levels. Will need to check with sukhwinder russell and return call to pt who reports he is able to come to [place] for blood draw. Future Appts: No future appointments. docuemmanuel in this en counter Plan of Treatment Not on filedocumented as of this encounter Visit Diagnoses Not on filedocumented in this encounter"
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
--- OUTSIDE RECORDS SUMMARY | ~2020-04-16 | XMS | Encounter Summary ---
Demographics + + + | Address | [address] | | | [place] [address] | + + + | Home Phone | | + + + | Preferred Language | Unknown | + + + | Marital Status | Single | + + + | Scientologist Affiliation | Unknown | + + + [...] Team Providers + +------+ + | Care Paste Mixer Liquid Name | Role | Phone | + [...] + + | 06/19/ | Telephone | [facility] | Orly Villavicencio | Medication Orders; | | 2018 | | [facility] [address] | [address] | Left Without Being | | | | [place], | [address] | Seen (Crisis | | | | [place] [address] | [place] [address] | Response Team) | | | | [phone] | [phone] | | | | | | | [...] earlier message lidia wanted this sent to [facility], [facility]. Please resend to [facility]. I cancelled the nortriptyline + Lorazepam and spironolactone and Thiamine at [facility], s poke to pharmacist. She says to resend to [facility]. Pending Dr Villavicencio review and signature. elephone [...] did lab, and did not wait for MATHEMATICS IMPROVEMENT TEACHER to come. Lidia sa id she had an appointment she needed to get to. She says "he has decided to quit drinking o n his own". She [facility] She says she called this p [...]
--- OUTSIDE RECORDS SUMMARY | ~2020-04-16 | XMS | Encounter Summary ---
Demographics + + + | Address | [address] | | | [place] [address] | + + + | Home Phone [...] + + + | Author | [facility] | | | and [place] | + + + | Organization | [facility] | | | and [...] Team Providers + +------+ + | Care Supervisor Abattoir Name | Role | Phone | + +------+ + | Orly Villavicencio MD | PCP | | + +------+ + Reason for Visit + +--------+ + | Reason | Onset | Comments | | | Date | | + +--------+ + | Recall For Services | 12/25/ | | | (DMST) | 2019 | | + +--------+ + | Colonoscopy | 12/25/ | | | | 2018 | | + +--------+ + Encounter Details +--------+ + + + + | Date | Type | Department | Care Team | Description | +--------+ + + + + | 12/25/ | Patient | [facility] | Orly Villavicencio | PHST Preventative | | 2018 | Outreach | MEDICINE [address] | [address] | Screening, PHST | | | | [place], | [address] | Colon Cancer | | | | [place] [address] | [place] [address] | Screening | | | | [phone] | [phone] | | | | | | | [...] this encounter Miscellaneous Notes Telephone Encounter - LEIA ZAMORA - 12/25/2018 9:39 AM PDTAutomated reminder call/text s ent to patient for the following due services: Colorectal Cancer Screening Please inform patient of due services. Please contact Population Health Support Team at if you have any questions regarding this message. No number on file- closing encounter, letter sent documented in this encounter Plan of Treatment Not on filedocumented as of this encounter Visit Diagnoses Not on filedocumented in this encounter"
--- OUTSIDE RECORDS SUMMARY | ~2020-04-16 | XMS | Encounter Summary ---
Demographics + + + | Address | [address] | | | [place] [address] | + + + | Home Phone | | + + + | Preferred Language | Unknown | + + + | Marital Status | Single | + + + | Druze Affiliation | Unknown | + + + | Race | or | + + + | Ethnic Group | Not or | + + + Author + + + | Author | [facility] | | | and [place] | + + + | Organization | [facility] | | | [...] Team Providers + +------+ + | Care Software Sales Manager Name | Role | Phone | + +------+ + | Orly Villavicencio MD | PCP | | + +------+ + Reason for Visit +---------+--------+ + | Reason | Onset | Comments | | | Date | | +---------+--------+ + | Results | 04/30/ | | | | 2014 | | +---------+--------+ + Encounter Details +--------+ + + + + | Date | Type | Department | Care Team | Description | +--------+ + + + + | 04/30/ | Telephone | [facility] | Orly Villavicencio | Results | | 2014 | | MEDICINE [address] | [address] | | | | | [place], | [address] [place] | | | | | [place] [address] | [place] [address] | | | | | [phone] | [phone] | | | | | | | [...] Telephone Encounter - Natalia Hastings RN - 04/30/2015 5:10 PM PDTHeather notified. Blanco coleed understanding. She says patient wants to stay with Dr Villavicencio. No PCP with [facility]. elephone Encounter - Orly Villavicencio MD - 04/30/2015 4:55 PM PDTPlease call patient or his girlfrien blossom Graf and report that his liver US did not show any significant findings which is good n ews. I am aware that they have decided to follow up with [facility]. Please advise to keep appt with GI as I have recommended, and to do follow up bloodwork amina t I also advised him to have. Order in EMR. If he has established with a new PCP at [facility], please change PCP in the EMR. Thanks. documented i n this encounter Plan of Treatment Not on filedocumented as of this encounter Visit Diagnoses Not on filedocumented in this encounter"
--- OUTSIDE RECORDS SUMMARY | ~2020-04-16 | XMS | Encounter Summary ---
Demographics + + + | Address | [address] | | | [place] [address] | + + + | Home Phone | | + + + | Preferred Language | Unknown | + + + | Marital Status | Single | + + + | Rastafari Affiliation | Unknown | + + + | Race | or | + + + | Ethnic Group | Not or | + + + Author + + + | Author | [facility] | | | and [place] | + + + | Organization | [facility] [...] Team Providers + +------+ + | Care Sporting Goods Sales Manager Name | Role | Phone | + +------+ + | Orly Villavicencio MD | PCP | | + +------+ + Encounter Details +--------+ + + + + | Date | Type | Department | Care Team | Description | +--------+ + + + + | 03/22/ | Hospital | [facility] | Orly Villavicencio | Chronic hepatitis C | | 2016 | Encounter | MED CTR [facility] | [address] | without hepatic coma | | | | [address] [place] | [address] [place] | (HCC) (Primary Dx); | | | | [place], [place] | [place] [address] | Elevated LFTs; | | | | [address] | [phone] | Alcoholism (HCC); | | | | [phone] | | Bilateral leg pain; | | | | | | Alcoholic hepatitis | | | | | | without ascites | +--------+ + + + + Social [...] tablet by | 20 | 0 | 05/07/20 | | | 1 mg tablet | mouth every 6 hours | tablet | | 15 | 6 | | | as needed for | | | | | | | Anxiety (alcohol | | | | | | | withdrawal). | | | | | + + + +---------+ + + | omeprazole | Take 1 capsule by | 30 | 0 | 05/06/20 | | | (PRILOSEC) 20 mg | mouth Daily. | capsule | | 15 | 6 | | capsule | | | | | | + + + +---------+ + + | triamcinolone | Apply small amount | 120 mL | 0 | 03/22/20 | | | (KENALOG) 0.1% | to affected area(s) | | | 16 | 6 | | lotion | three times daily | | | | | | | for 2 weeks only. | | | | | + + + +---------+ + + documented as of this encounter Plan of Treatment Not on filedocumented as of this encounter Procedures + +--------+ + + + | Procedure Name | Priori | Date/Time | Associated Diagnosis | Comments | | | ty | | | | + +--------+ + + + | EXTRA GOLD TOP TUBE | Routin | 03/22/2016 | Chronic hepatitis | Results for this | | | e | 2:38 PM | C without hepatic | procedure are in the | | | | PDT | coma (HCC) | results section. | | | | | Alcoholic hepatitis | | | | | | without ascites | | + +--------+ + + + | HIV 1 AND 2 AB | Routin | 03/22/2016 | Chronic hepatitis | Results for this | | SCREEN REFLEXIVE | e | 2:37 PM | C without hepatic | procedure are in the | | | | PDT | coma (HCC) | results section. | + +--------+ + + + | SEDIMENTATION RATE | Routin | 03/22/2016 | Elevated LFTs | Results for this | | | e | 2:37 PM | Alcoholism (HCC) | procedure are in the | | | | PDT | Bilateral leg pain | results section. | + +--------+ + + + | PROTIME INR | Routin | 03/22/2016 | Elevated LFTs | Results for this | | | e | 2:37 PM | Alcoholism (HCC) | procedure are in the | | | | PDT | Bilateral leg pain | results section. | + +--------+ + + + | CBC WITH | Routin | 03/22/2016 | Elevated LFTs | Results for this | | DIFFERENTIAL | e | 2:37 PM | Alcoholism (HCC) | procedure are in the | | | | PDT | Bilateral leg pain | results section. | + +--------+ + + + | C-REACTIVE PROTEIN | Routin | 03/22/2016 | Elevated LFTs | Results for this | | | e | 2:37 PM | Alcoholism (HCC) | procedure are in the | | | | PDT | Bilateral leg pain | results section. | + +--------+ + + + | URIC ACID | Routin | 03/22/2016 | Elevated LFTs | Results for this | | | e | 2:37 PM | Alcoholism (HCC) | procedure are in the | | | | PDT | Bilateral leg pain | results section. | + +--------+ + + + | TSH | Routin | 03/22/2016 | Elevated LFTs | Results for this | | | e | 2:37 PM | Alcoholism (HCC) | procedure are in the | | | | PDT | Bilateral leg pain | results section. | + +--------+ + + + | CK TOTAL | Routin | 03/22/2016 | Elevated LFTs | Results for this | | | e | 2:37 PM | Alcoholism (HCC) | procedure are in the | | | | PDT | Bilateral leg pain | results section. | + +--------+ + + + | AMMONIA | Routin | 03/22/2016 | Elevated LFTs | Results for this | | | e | 2:37 PM | Alcoholism (HCC) | procedure are in the | | | | PDT | Bilateral leg pain | results section. | + +--------+ + + + | COMPREHENSIVE | Routin | 03/22/2016 | Elevated LFTs | Results for this | | METABOLIC PANEL | e | 2:37 PM | Alcoholism (HCC) | procedure are in the | | | | PDT | Bilateral leg pain | results section. | + +--------+ + + + documented in this encounter Results Extra Gold Top Tube (03/22/2016 2:38 PM PDT) + +-------+ + + + | Component | Value | Ref Range | Performed | Pathologist | | | | | At | Signature | + +-------+ + + + | Extra Gold | Done | | [facility] | | | Top Tube | | | [facility] | | [...] [address] | [place] | [phone] | | [facility] | | [address] | | | - LABORATORY | | | | + + + + + HIV 1 AND 2 Ab Screen (Reflexive) (03/22/2016 2:37 PM PDT) + + + + + [...] | | | | | 2015, the 12GAVR test | | | | | | code for 3rdGeneration | | | | | | HIV testing will no | | | | | | longer be orderable.[facility] | | | | | | will [...] order | | | | | | [id number] to order | | | | | [...] | | | | | may go [employer] to | | | | | | access literature | | | | | | regarding the change in | | | | | | HIVmethodologies. You | | | | | | may also contact [facility] | | | | | | Client Services | | | | | | foradditional | | | | | | information.Testing | | | | | | Performed: [facility], [address] | | | | | [address], [place] | | | | | | [address] | | | | + + + [...] [address] | [place] [address] | [phone] | + + + + + CK Total (03/22/2016 2:37 PM PDT) + +-------+ + + + | Component | Value | Ref Range | Performed | Pathologist | | | | | At | Signature | + +-------+ + + + | CK TOTAL | 85 | 22 - 269 U/L | [facility] | | | | | | [facility] | | | | | | MEDICAL | | | | | | CENTER - | | | | | | LABORATORY | | + +-------+ + + + + + | Specimen | + + | Blood | + + + + + + + | Performing | Address | City/State[facility] | Phone Number | | Organization | | | | + + + + + | [facility] | [address] | [place] | [phone] | | [facility] | | [address] | | | - LABORATORY | | | | + + + + + Uric Acid (03/22/2016 2:37 PM PDT) + +-------+ + + + | Component | Value | Ref Range | Performed | Pathologist | | | | | At | Signature | + +-------+ + + + | Uric Acid | 5.9 | 2.6 - 7.2 mg/dL | [facility] | | | | | | [facility] [...] + | [facility] | [address] | [place] | [phone] | | [facility] | | [address] | | | - LABORATORY | | | | + + + + + C-Reactive Protein (03/22/2016 2:37 PM PDT) + +-------+ + + + | Component | Value | Ref Range | Performed | Pathologist | | | | | At | Signature | + +-------+ + + + | CRP | 2.67 | <8.00 mg/L | [facility] | | | | | | [facility] | | | | | [...] + | [facility] | [address] | [place] | [phone] | | [facility] | | [address] | | | - LABORATORY | | | | + + + + + Sedimentation Rate (03/22/2016 2:37 PM PDT) + +-------+ + + + | Component | Value | Ref Range | Performed | Pathologist | | | | | At | Signature | + +-------+ + + + | Erythrocyte | 14 | <20 mm/hr | [facility] | | | | | | [facility] | | | Sedimentati | | | MEDICAL | | | on Rate | | | CENTER - | | [address] | [place] | [phone] | | [facility] | | [address] | | | - LABORATORY | | | | + + + + + Ammonia (03/22/2016 2:37 PM PDT) + +--------+ + + + | Component | Value | Ref Range | Performed | Pathologist | | | | | At | Signature | + +--------+ + + + | Ammonia | 72 (H) | 11 - 35 umol/L | [facility] | | | | | | [facility] [...] [address] | [place] | [phone] | | [facility] | | [address] | | | - LABORATORY | | | | + + + + + Protime INR (03/22/2016 2:37 PM PDT) + + + + + + | Component | Value | Ref Range | Performed | Pathologist | | | | | At | Signature | + + + + + + | Prothrombin | 15.0 (H) | 11.3 - 13.9 | [facility] | | | Time | | seconds | [facility] | | | | | | MEDICAL | | | | | | CENTER - | | | | | | LABORATORY | | + + + + + + | INR | 1.13 (H)Comment: Usual | 0.90 - 1.10 | [...] ST. | [address] | [place], [place] | [phone] | | [facility] | | [address] | | | - LABORATORY | | | | + + + + + TSH (03/22/2016 2:37 PM PDT) + + + + + + | Component | Value | Ref Range | Performed | Pathologist | | | | | At | Signature | + + + + + + | TSH | 2.89Comment: All TSH | 0.34 - 5.60 | [facility] | | | | samples are screened | uIU/mL | [facility] | | | | using a 2nd Generation | | MEDICAL | | | | test, and are reflexed | | CENTER - | | | | to a 3rd Generation test | | LABORATORY | | | | if indicated. | | | | + + + + + + + + | Specimen | + + | Blood | + + + + + + + | Performing | Address | City/State/Zipcode | Phone Number | | Organization | | | | + + + + + | [facility] | [address] | [place] | [phone] | | [facility] | | [address] | | | - LABORATORY | | | | + + + + + Comprehensive Metabolic Panel (03/22/2016 2:37 PM PDT) + + + + + + | Component | Value | Ref Range | Performed | Pathologist | | | | | At | Signature | + + + + + + | Na | 140 | 136 - 149 | [facility] | | | | | mmol/L | [facility] | | | | | | MEDICAL | | | | | | CENTER - | | | | | | LABORATORY | | + + + + + + | K | 4.0 | 3.5 - 5.1 | [facility] | | | | | mmol/L | [facility] | | | | | | MEDICAL | | | | | | CENTER - | | | | | | LABORATORY | | + + + + + + | Cl | 108 | 98 - 109 mmol/L | [facility] | | | | | | [facility] | | | | | | MEDICAL | | | | | | CENTER - | | | | | | LABORATORY | | + + + + + + | CO2 | 24 | 24 - 31 mmol/L | [facility] [...] + + + + | Glucose | 106 | 70 - 109 mg/dL | [facility] [...] + + + + | Creatinine | 0.76 | 0.60 - 1.30 | [facility] | [...] | mL/min/1.73m2 | [facility] | | | [place] | RATE,ESTIMATED | | MEDICAL | | | | mL/min/1.20g7Pcor than | | CENTER - | | [...] + + + + | Calcium | 8.9 | 8.3 - 10.5 | [facility] | | | | | mg/dL | [facility] | | | | | | MEDICAL | | | | | | CENTER - | | | | | | LABORATORY | | + + + + + + | Albumin | 3.4 | 3.2 - 5.0 g/dL | [facility] | | | | | | [facility] | | | | | | MEDICAL | | | | | | CENTER - | | | | | | LABORATORY | | + + + + + + | Bilirubin | 1.1 | 0.1 - 1.5 mg/dL | [facility] | | | Total | | | [facility] | | | | | | MEDICAL | | | | | | CENTER - | | | | | | LABORATORY | | + + + + + + | Total | 7.8 | 6.0 - 7.8 g/dL | [facility] | | | Protein | | | [facility] | | | | | | MEDICAL | | | | | | CENTER - | | | | | | LABORATORY | | + + + + + + | AST | 90 (H) | 10 - 42 U/L | [facility] | | | | | | [facility] | | | | | | MEDICAL | | | | | | CENTER - | | | | | | LABORATORY | | + + + + + + | ALT | 78 (H) | 6 - 45 U/L | [facility] | | | | | | [facility] | | | | | | MEDICAL | | | | | | CENTER - | | | | | | LABORATORY | | + + + + + + | Alkaline | 176 (H) | 40 - 110 U/L | [facility] | | | Phosphatase | | | [facility] | | | | | | MEDICAL | | | | | | CENTER - | | | | | | LABORATORY | | + + + + + + | Globulin | 4.4 (H) | 2.1 - 3.8 g/dL | [facility] | | | | | | [facility] | | | | | | MEDICAL | | | | | | CENTER - | | | | | | LABORATORY | | + + + + + + | Albumin/Masha | 0.8 | 0.8 - 2.0 | [facility] | | | bulin Ratio | | | [facility] | | | | | | MEDICAL | | | | | | CENTER - | | | | | | LABORATORY | | + + + + + + | BUN/Creatin | 10.5 | | [facility] | | | ine Ratio | | | [facility] | | [...] + + | [facility] | [address] | [place] | [phone] | | [facility] | | [address] | | | - LABORATORY | | | | + + + + + CBC with Differential (03/22/2016 2:37 PM PDT) + + + + + + | Component | Value | Ref Range | Performed | Pathologist | | | | | At | Signature | + + + + + + | White Blood | 7.8 | 4.0 - 11.0 K/uL | [facility] | | | Cells | | | [facility] | | | | | | MEDICAL | | | | | | CENTER - | | | | | | LABORATORY | | + + + + + + | Red Blood | 5.36 | 4.30 - 5.70 | [facility] | | | Cells | | M/uL | [facility] | | | | | | MEDICAL | | | | | | CENTER - | | | | | | LABORATORY | | + + + + + + | Hemoglobin | 17.4 | 13.5 - 18.0 | [facility] | | | | | g/dL | [facility] | | | | | | [facility]ICAL | | | | | | CENTER - | | | | | | LABORATORY | | + + + + + + | Hematocrit | 49.0 | 40.0 - 51.0 % | [facility] | | | | | | [facility] | | | | | | MEDICAL | | | | | | CENTER - | | | | | | LABORATORY | | + + + + + + | MCV | 91.4 | 83.0 - 101.0 fL | [facility] | | | | | | [facility] | | | | | | MEDICAL | | | | | | CENTER - | | | | | | LABORATORY | | + + + + + + | MCH | 32.4 | 28.0 - 35.0 pg | [facility] | | | | | | [facility] | | | | | | MEDICAL | | | | | | CENTER - | | | | | | LABORATORY | | + + + + + + | MCHC | 35.5 | 32.0 - 36.0 | [facility] | | | | | g/dL | [facility] | | | | | | MEDICAL | | | | | | CENTER - | | | | | | LABORATORY | | + + + + + + | RDW-CV | 13.9 | <15.0 % | [facility] | | | | | | [facility] | | | | | | MEDICAL | | | | | | CENTER - | | | | | | LABORATORY | | + + + + + + | Platelet | 157 | 140 - 440 K/uL | [facility] | | | Count | | | [facility] | | | | | | MEDICAL | | | | | | CENTER - | | | | | | LABORATORY | | + + + + + + | MPV | 8.1 | fL | [facility] | | | | | | [facility] | | | | | | MEDICAL | | | | | | CENTER - | | | | | | LABORATORY | | + + + + + + | % | 49.3 | 45.0 - 82.0 % | [facility] | | | Neutrophils | | | [facility] | | | | | | MEDICAL | | | | | | CENTER - | | | | | | LABORATORY | | + + + + + + | % | 31.1 | 20.0 - 45.0 % | [facility] | | | Lymphocytes | | | [facility] | | | | | | MEDICAL | | | | | | CENTER - | | | | | | LABORATORY | | + + + + + + | % Monocytes | 15.6 (H) | 4.0 - 12.0 % | [...] + + + | % Basophils | 0.6 | 0.0 - 1.0 % | [facility] | | | | | | [facility] | | | | | | MEDICAL | | | | | | CENTER - | | | | | | LABORATORY | | + + + + + + | Absolute | 3.80 | 1.80 - 8.50 | [facility] | | | Neutrophils | | K/uL | [facility] | | | | | | MEDICAL | | | | | | CENTER - | | | | | | LABORATORY | | + + + + + + | Absolute | 2.40 | 0.60 - 3.20 | [facility] | [...] + + + + | Absolute | 0.30 | 0.00 - 0.40 | [facility] | | | Eosinophils | | K/uL | [facility] | | | | | | MEDICAL | | | | | | CENTER - | | | | | | LABORATORY | | + + + + + + | Absolute | 0.10 | 0.00 - 0.10 | [facility] | | | Basophils | | K/uL | [facility] | | | | [...] [address] | [place] | [phone] | | [facility] | | [address] | | | - LABORATORY | | | | + + + + + documented in this encounter Visit Diagnoses + + | Diagnosis | + + | Chronic hepatitis C without hepatic coma (HCC) - Primary | + + | Elevated LFTs Other abnormal blood chemistry | + + | Alcoholism (HCC) Other and unspecified alcohol dependence, unspecified drinking | | behavior | + + | Bilateral leg pain Pain in limb | + + | Alcoholic hepatitis without ascites Acute alcoholic hepatitis | + + documented in this encounter"
--- OUTSIDE RECORDS SUMMARY | ~2020-04-16 | XMS | Encounter Summary ---
Demographics + + + | Address | [address] | | | [place] [address] | + + + | Home Phone | | + + + | Preferred Language | Unknown | + + + | Marital Status | Single | + + + | Taoism Affiliation | Unknown | + + + [...] Team Providers + +------+ + | Care Nursing Surgical Services Director Name | Role | Phone | + [...] Description | +--------+--------+ + + + | 12/01/ | Refill | [facility] | Orly Villavicencio | Medication Refill | | 2018 | | MEDICINE [address] | [address] | | | | | [place], | [place] | | | | | [place] [address] | [place] [address] | | | | | [phone] | [phone] | | | | | | | [...] Notes Telephone Encounter - Bruno Krueger - 12/02/2017 12:00 PM PDTPatient scheduled w ruben Villavicencio on December 06 at 8:45 am by Lesia. Girlfriend states that patient is doing much better. elephone Encounter - Orly Villavicencio MD - 12/02/2017 8:02 AM PDTPlease set u p appt with me. Thanks. elephone En counter - Nay Sykes RN - 12/01/2017 5:49 PM PDTDrRodger Villavicencio, please advise, does patient need appt with Mariia or with you for f/u within the next week? elephone Encounter - Nay Sykes RN - 8 5:44 PM PDTRx for lorazepam faxed to pharmacy. elephone Encounter - Cuca Cardenas - 12/01/2017 4:25 PM PDTPat ient called, stating she would like a call once prescription is ready to sheepskin pickler.Electronica lly signed by Cuca Cardenas at 12/01/2017 4:27 PM PDTTelephone Encounter - Mariia Townsend PharmD - 12/01/2017 3:28 PM PDTMedication Alprazolam Quantity 20 tablets Indication: Alcohol withdrawal Last refill date: 02/24/2017 (authorized by Dr. Ham) [facility]acy: [facility] Last appointment 09/30/17 Next appointment 02/16/18 documented in this encounter Plan of Treatment Not on filedocumented as of this encounter Visit Diagnoses Not on filedocumented in this encounter"
--- OUTSIDE RECORDS SUMMARY | ~2020-04-16 | XMS | Encounter Summary ---
Demographics + + + | Address | [address] | | | [place] [address] | + + + | Home Phone | | + + + | Preferred Language | Unknown | + + + | Marital Status | Single | + + + | Pentecostal Affiliation | Unknown | + + + | Race | or | + + + | Ethnic Group | Not or | + + + Author + + + | Author | [facility] | | | and [place] | + + + | Organization | [facility] | | | [...] Team Providers + +------+ + | Care Exchange Clerk Name | Role | Phone | + +------+ + | Orly Villavicencio MD | PCP | | + +------+ + Reason for Visit + +--------+ + | Reason | Onset | Comments | | | Date | | + +--------+ + | Coughing Up Blood | 12/01/ | | | | 2018 | | + +--------+ + | Alcohol Intoxication | 12/01/ | | | | 2017 | | + +--------+ + | Hallucinations | 12/01/ | | | | 2017 | | + +--------+ + | Grief/ Loss | 12/01/ | | | | 2017 | | + +--------+ + Encounter Details +--------+ + + + + | Date | Type | Department | Care Team | Description | +--------+ + + + + | 12/01/ | Telephone | [facility] | Orly Villavicencio | Coughing Up Blood; | | 2017 | | [address]IC[address] | [address] | Alcohol | | | | [place], | [address] | Intoxication; | | | | [place] [address] | [place] [address] | Hallucinations; | | | | [phone] | [phone] | Grief/ Loss | | | | | | | [...] Telephone Encounter - Natalia Hastings RN - 12/01/2017 10:30 AM PDTGirlfrlaurend Lesia phone s. She reports patient's dad has 2 weeks ago and patient has been drinking heavily ever since. He is having hallucinations and coughing up blood. Lesia notified patient needs to go to ED [facility]. She says he tried to be seen at [facility] and they refused. Lesia agrees to get patient and arrange for patient to get t o ED, [facility]. This routed to Dr Saud NGUYEN. documented in this encounter Plan of Treatment Not on filedocumented as of this encounter Visit Diagnoses Not on filedocumented in this encounter"
--- OUTSIDE RECORDS SUMMARY | ~2020-04-16 | XMS | Encounter Summary ---
Demographics + + + | Address | [address] | | | [place] [address] | + + + | Home Phone [...] Author + + + | Author | [facility] | | | and [place] | + + + | Organization | [facility] | | [...] Team Providers + +------+ + | Care Leak Operator [employer] Name | Role | Phone | + [...] + + | 10/24/ | Telephone | [facility] | Orly Villavicencio | Hospitalization; | | 2019 | | MEDICINE [address] | [address] | Cough; Anxiety | | | | [place], | [place] | | | | | [place] [address] | [place] [address] | | | | | [phone] | [phone] | | | | | | | [...] out. She states they use [facility]. Lorazepam 1 mg, last filled on 08/08/19 [...] Dr Villavicencio review. Requested more records from [facility]. elephone Encounter - Natalia Hastings RN - 11/14/2019 3:22 PM PDTCalled [facility]. Requested records. Electronically signed by Natalia Hastings RN at 10/21 3:23 PM PDTTelephone Encounter - Natalia Hastings RN - 11/13/2019 1:59 PM PDTSpoke to Lesia. She says patient was discharged from [facility] last week. He has been off alcohol for one month. He told Lesia that he will never drink again as being on a Ventilator for 3 weeks scared him. He is feeling better. "He pulled out of it". Lesia says no discharge instructions were given to patient. Requested Discharge summary from [facility]. Faxed this request to [facility] [phone]/Urgent. elephone Orly Kim MD - 11/12 11:07 AM PDTReviewed. Can we get an update on this patient. Thanks. elephone En elissa - Natalia Hastings RN - 10/29/2019 2:09 PM PDTNotes received and to Dr Villavicencio for re view. elephone Radhat er Natalia Veliz RN - 10/29/2019 11:47 AM PDTCalled [facility]. We need to fax request to [phone]. Request faxed. elepho ne Orly Kim MD - 10/29/2019 11:38 AM PDTPlease obtain records f [facility]. Thanks. elephone En elissa - Natalia Hastings RN - 10/29/2019 9:46 AM PDTPhone call to Lesia, the girlfriend . She says patient went to [facility] ED last Tuesday and is now admitted in [facility]. She says she is not allowed to [...] Lesia says the daughter did not let [facility] know that you were his PCP. 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 Lesia says she has this knowledge from other family members of patient. Lesia herself is not allowed to visit. elephone Encounter - Natalia Hastings RN - 10/29/2019 9:37 AM [facility]? For what reason please? elephone Encounter - [...]
--- OUTSIDE RECORDS SUMMARY | ~2020-04-16 | XMS | Encounter Summary ---
Demographics + + + | Address | [address] | | | [place] [address] | + + + | Home Phone [...] Author + + + | Author | [facility] | | | and [place] | + + + | Organization | [facility] | | [...] Team Providers + +------+ + | Care Medical Scientific Officer Name | Role | Phone | + +------+ + | Orly Villavicencio MD | PCP | | + +------+ + Reason for Visit + +--------+ + | Reason | Onset | Comments | | | Date | | + +--------+ + | Medication Question | 06/02/ | | | | 2018 | | + +--------+ + Encounter Details +--------+ + + + + | Date | Type | Department | Care Team | Description | +--------+ + + + + | 06/02/ | Telephone | [facility] | Orly Villavicencio | Medication Question | | 2018 | | [address]IC[address] | [address] | | | | | [place], | [place] [facility] | | | | | [place] [address] | [place] [address] | | | | | [phone] | [phone] | | | | | | | [...] encounter Miscellaneous Notes Telephone Encounter - Nay Syeks RN - 06/09/2018 4:27 PM PDTPatient's sister Annelise notified of Dr. Villavicencio's message and recommendations. She verbalized understanding and agrees to notify patient. elephone Encounter - Nay Sykes RN - 06/08/2018 2 :49 PM PDTTried to call patient, no answer, no VM set up. elephone Encounter - Orly Villavicencio MD - 06/08 12:15 PM PDTPlease let patient know: Continue on 100 mg spironolactone + furosemide 40 mg once a day. Please let know CXR appears stable. Labs showed improvement in liver function, which is great news. Maintain follow up next month. Thanks. elephone En counter - Natalia Hastings RN - 06/08/2018 9:51 AM PDTAgain tried to call patient. No answ er. No voicemail. I called Chitra, patient's sister. She says she does not know why Lesia called here because "she is not even in the picture anymore". Chitra says patient is taking spironolactone 100 mg a day. If he has any 50 mg on hand th en he takes two of them to total 100 mg a day. Chitra says she is helping patient with his medications and this is what she herself, told patient to do. elephone Encounter - Natalia Hastings RN - 06/06/2018 9:41 AM PDTTried to call patient, no voicemail set up.Raquel ctronically signed by Natalia Hastings RN at 06/06/2018 9:42 AM PDTTelephone Encounter - Elena Ames RN - 06/02/2018 11:39 AM PDTReturned patients call and got a message that betty cerrato "there was no voice mail set up yet". Will call again later. P DTTelephone Encounter - Lesia Hastings - 06/02/2018 11:28 AM PDTPatient's girlfriend, He ather, called asking to speak with the nurse. Lesia stated the patient was in yesterday b ut he is confused about one of his medications. Lesia stated they need to know if he is s till supposed to take the spironolactone and if so, how much, as he has one for 50 mg and on e for 100 mg. Please call patient to advise. documented in this encounter Plan of Treatment Not on filedocumented as of this encounter Visit Diagnoses Not on filedocumented in this encounter
--- OUTSIDE RECORDS SUMMARY | ~2020-04-16 | XMS | Encounter Summary ---
Demographics + + + | Address | [address] | | | [place] [address] | + + + | Home Phone | | + + + | Preferred Language | Unknown | + + + | Marital Status | Single | + + + | Moravian Affiliation | Unknown | + + + | Race | or | + + + | Ethnic Group | Not or | + + + Author + + + | Author | [facility] | | | and [place] | + + + | Organization | [facility] | | [...] Team Providers + +------+ + | Care Headend Technician Name | Role | Phone | + +------+ + | Orly Villavicencio MD | PCP | | + +------+ + Reason for Visit + + + | Reason | Comments | + + + | ED Follow-up | 04/06/15, Medication questions | + + + Encounter Details +--------+---------+ + + + | Date | Type | Department | Care Team | Description | +--------+---------+ + + + | 04/17/ | Office | [facility] | Orly Villavicencio | Alcoholic hepatitis | | 2015 | Visit | [address] | [address] | without ascites | | | | [place], | [address] | (Primary Dx); | | | | [place] [address] | [place] [address] | Elevated LFTs; Drug | | | | [phone] | [phone] | use | | | | | | | [...] + + + | Blood Pressure | 140/72 | 04/17/2015 4:12 PM | | | | | PDT | | + + + + + | Pulse | 59 | 04/17/2015 4:12 PM | | | | | PDT | | + + + + + | Temperature | 37.7 C (99.8 F) | 04/17/2015 4:12 PM | | | | | PDT | | + + + + + | Respiratory Rate | 12 | 04/17/2015 4:12 PM | | | | | PDT | | + + + + + | Oxygen Saturation | 97% | 04/17/2015 4:12 PM | | | | | PDT | | + + + + + | Inhaled Oxygen | - | - | | | Concentration | | | | + + + + + | Weight | 106.1 kg (234 lb) | 04/17/2015 4:12 PM | | | | | PDT | | + + + + + | Height | - | - | | + + + + + | Body Mass Index | 32.65 | 04/06/2015 11:08 PM | | | | | PDT | | + + + + + documented in this encounter Progress Notes Orly Villavicencio MD - 04/17/2015 4:57 PM PDTFormatting of this note might be diff erent from the original. Chief Complaint Patient presents with ED Follow-up 04/06/15, Medication questions HPI: Hossein Holcomb is a 59 year old man who is here to follow up after ER discharge and to establish primary care. He was seen in the ER last 04/06/15 for abdominal pain. He was diagnosed with alcoholic hepa titis. He had elevated LFTs, abnormal coag tests as well as elevated ammonia levels. He was discharged on lorazepam, lactulose and omeprazole. He reports he has not had alcohol since being in the ED. Uses lorazepam 1x a day. Uses lactulose 15 ml TID. Takes pmeprazole once a day. He reports feeling overall better. Has had no abdominal pain. Prior to his ER encounter, he was drinking 18 cans of ETOH a day. He has not seen a primary care provider. Past Medical History Diagnosis Date Chest trauma, penetrating bucked off a horse Current Outpatient Prescriptions on File Prior to Visit Medication Sig Dispense Refill lactulose 10 g/15 mL solution Take 15 mLs by mouth 3 times daily for 30 days. 1350 mL 0 LORazepam (ATIVAN) 1 mg tablet Take 1 tablet by mouth every 6 hours as needed for Anxie ty (alcohol withdrawal). 20 tablet 0 omeprazole (PRILOSEC) 20 mg capsule Take 1 capsule by mouth Daily. 30 capsule 0 No current facility-administered medications on file prior to visit. Please refer to patient Questionnaire for family history. He was not open to discussing his family history today for uncertain reasons. No Known Allergies ROS: Please refer to scanned Patient Questionnaire which is already reviewed. Physical Examination: BP 140/72 mmHg | Pulse 59 | Temp(Src) 37.7 C (99.8 F) (Temporal) | Resp 12 | Wt 106.142 kg (234 lb) | SpO2 97% General Appearance: Patient not in pain or any respiratory distress. HEENT: [place] conjunctivae, anicteric sclerae. No neck vein engorgement. Thyroid not enlarg ed. Cardiovascular: Good S1S2, No murmurs. No rubs/gallops. Rhythm regular. Respiratory: Clear breath sounds. No crackles/wheezes. Musculoskeletal: No pedal edema. No open wounds. GI: Abdomen soft with normoactive bowel sounds. No rebound tenderness or guarding. No CVA tenderness. No masses/bruits. No caput medusae. He has no asterixis. Mood is somewhat flat and will have bouts of unexpected laughter. Reviewed ER physician notes and work up. Assessment and Plan: 1) Alcoholism with resolving alcoholic hepatitis 2) Elevated LFTs, suspect to be from liver cirrhosis and potentially viral hepatitis 3) Drug use - meth + marijuana He reports being sober for a couple of weeks now. He is using lorazepam sparingly. He is advised to have bloodwork today to see the trending of his LFTs and ammonia. Will check for Hepatitis profile, especially B and C. Will need a liver US. Congratulated on alcohol abstinence but strongly encouraged to remain to be so to prevent w orsening of liver injury. Close follow up in 1 month. documented i n this encounter Plan of Treatment Not on filedocumented as of this encounter Results US Abdomen Limited (04/29/2015 9:38 AM PDT) + + | Specimen | + + | | + + + + + | Narrative | Performed At | + + + | LIMITED RIGHT UPPER QUADRANT ULTRASOUND: 04/29/2015 9:12 AM | [facility] | | CLINICAL HISTORY: alcohoism, abnormal liver function tests | [facility] | | COMPARISON:None FINDINGS: Liver:The liver is of normal | [facility] | | echogenicity and echo architecture. There is no intrahepatic biliary | - IMAGING | | or venous dilation. No focal hepatic abnormalities are present. | | | Gallbladder:Contracted (patient is not fasting). No stones, wall | | | thickening or pericholecystic fluid. CBD: Common bile duct measures | | | 4.8 mm Pancreas:All parts of the pancreas are seen and it shows | | | normal echogenicity and appearance. No pancreatic ductal dilation is | | | seen. Right kidney:Right kidney is also included on this examination. | | | It shows normal echogenicity and echo architecture. No | | | hydronephrosis. Maximum dimension is 10.6 cm Vasculature:Blood flow | | | in the inferior vena cava and hepatic veins is normal. Portal venous | | | blood flow is normal in pattern and direction. IMPRESSION -Right | | | upper quadrant ultrasound appearance is within normal limits. | | | Dictated and Signed by: Oswaldo Ortega MD Electronically signed: | | | 04/29/2015 4:43 PM | | + + + + + | Procedure Note | + + | Keegan, Rad Results In - 04/29/2015 4:46 PM PDT LIMITED RIGHT UPPER QUADRANT | | ULTRASOUND: 04/29/2015 9:12 AMCLINICAL HISTORY: alcohoism, abnormal liver function | | testsCOMPARISON:NoneFINDINGS:Liver:The liver is of normal echogenicity and echo | | architecture. There is nointrahepatic biliary or venous dilation. No focal hepatic | | abnormalities arepresent.Gallbladder:Contracted (patient is not fasting). No stones, | | wall thickening orpericholecystic fluid.CBD: Common bile duct measures 4.8 | | mmPancreas:All parts of the pancreas are seen and it shows normal echogenicity | | andappearance. No pancreatic ductal dilation is seen.Right kidney:Right kidney is also | | included on this examination. It shows normalechogenicity and echo architecture. No | | hydronephrosis. Maximum dimension is 10.6cmVasculature:Blood flow in the inferior vena | | cava and hepatic veins is normal.Portal venous blood flow is normal in pattern and | | direction.IMPRESSION -Right upper quadrant ultrasound appearance is within normal | | limits.Dictated and Signed by: Oswaldo Ortega MD Electronically signed: 04/29/2015 4:43 | | PM | |appearance. No pancreatic ductal dilation is seen. | |Right kidney:Right kidney is also included on this examination. It shows normal | |echogenicity and echo architecture. No hydronephrosis. Maximum dimension is 10.6 | |cm | |Vasculature:Blood flow in the inferior vena cava and hepatic veins is normal. | |Portal venous blood flow is normal in pattern and direction. | | | |IMPRESSION -Right upper quadrant ultrasound appearance is within normal limits. | | | |Dictated and Signed by: Oswaldo Ortega MD | | Electronically signed: 04/29/2015 4:43 PM | + + + + + + + | Performing | Address | City/State/Zipcode | Phone Number | | Organization | | | | + + + + + | [facility] | [address] | [place] | [phone] | | [facility] | | [address] | | | - IMAGING | | | | + + + + + Hepatitis Panel, Chronic (04/17/2015 5:21 PM PDT) + + + + + + | Component | Value | Ref Range | Performed | Pathologist | | | | | At | Signature | + + + + + + | Hepatitis A | Reactive (A) | NR | REFERENCE | | | Ab Total | | | [facility] | | + + + + + + | Hepatitis B | Non Reactive | NR | REFERENCE | | | Surface Ag | | | [facility] | | + + + + + + | Hepatitis B | Non Reactive | NR | REFERENCE | | | Core Ab | | | [facility] | | | Total | | | | | + + + + + + | Hepatitis B | <3.1Comment: <10.0 | mIU/mL | REFERENCE | | | Surface Ab | Non | | [facility] | | | | Azmdru30.0 or greater | | | | | | Indicates vaccine | | | | | | response or response to | | | | | | HBVinfection.Samples | | | | | | with a calculated value | | | | | | of 10 mIU/mL or greater | | | | | | are consideredreactive | | | | | | (protective) in | | | | | | accordance with the CDC | | | | | | guidelines. | | | | + + + + + + | Hepatitis C | See Comments (A)Comment: | NR | REFERENCE | | | Ab | ReactiveSignal/Cutoff | | [facility] | | | | Ratio: >11.00The Siemens | | | | | | Advia Centaur | | | | | | Immunoassay method is | | | | | | used.Hepatitis C results | | | | | | reported in accordance | | | | | | with CDC | | | | | | guidelines.Specimens | | | | | | reported as "Reactive" | | | | | | are strongly reactive | | | | | | withSignal/Cutoff ratios | | | | | | >= 11.00. Approximately | | | | | | 95% of these | | | | | | specimenswill confirm | | | | | | positive by a more | | | | | | specific serologic or | | | | | | nucleic acidtest | | | | | | (ANITA).Specimens that | | | | | | have Signal/Cutoff | | | | | | ratios from 1.00 - 10.99 | | | | | | areconsidered "Weak | | | | | | Reactives". CDC | | | | | | guidelines suggest that | | | | | | more | | | | | | specificconfirmatory | | | | | | testing can be limited | | | | | | to "Weak Reactive" | | | | | | findings.Possible Acute | | | | | | or Chronic HCV | | | | | | infection. False | | | | | | positive screenreactions | | | | | | are known to occur. | | | | | | Quantitative HCV RNA by | | | | | | PCR isrecommended for | | | | | | confirmation. PCR will | | | | | | require a new EDTA | | | | | | plasmaspecimen. | | | | + + + + + + | Hepatitis | See CommentsComment: | | REFERENCE | | | Interpretat | Current or past HAV | | [facility] | | | ion: | infection and current or | | | | | | past HCV infection. | | | | | | Noserologic evidence of | | | | | | HBV infection or | | | | | | vaccination.Testing | | | | | | Performed: [facility], [address] | | | | | [address], [place] | | | | | | [address] | | | | + + + [...] [address] | [place] [address] | [phone] | + + + + + Ammonia (04/17/2015 5:21 PM PDT) + +--------+ + + + | Component | Value | Ref Range | Performed | Pathologist | | | | | At | Signature | + +--------+ + + + | Ammonia | 44 (H) | 11 - 35 umol/L | [...] | [address] | [place] | [phone] | | [facility] | | [address] | | | - LABORATORY | | | | + + + + + Protime INR (04/17/2015 5:21 PM PDT) + + + + + [...] + + + + | INR | 1.18 (H)Comment: Usual | 0.90 - 1.10 | [facility] | | | | Oral Anticoagulation | | [facility] | | | | Range: 2.0 - [...] | [address] | [place] | [phone] | | [facility] | | [address] | | | - LABORATORY | | | | + + + + + Comprehensive Metabolic Panel (04/17/2015 5:21 PM PDT) + + + + + + | Component | Value | Ref Range | Performed | Pathologist | | | | | At | Signature | + + + + + + | Na | 137 | 136 - 149 | [facility] | [...] + + + + | BUN | 6 (L) | 7 - 18 mg/dL | [facility] | | | | | | [facility] | | | | | | MEDICAL | | | | | | CENTER - | | | | | | LABORATORY | | + + + + + + | Creatinine | 0.86 | 0.60 - 1.30 | [facility] | | | | | mg/dL | [facility] | | | | | | MEDICAL | | | | | | CENTER - | | | | | | LABORATORY | | + + + + + + | eGFR, | >60Comment: GLOMERULAR | >=60 | [facility] | | | non- | FILTRATION | mL/min/1.73m2 | [facility] | | | [place] | RATE,ESTIMATED | | MEDICAL | | | | mL/min/1.37m2Shle than | | CENTER - | | [...] + + + + | Calcium | 8.6 | 8.3 - 10.5 | [facility] | | | | | mg/dL | [facility] | | | | | [...] + + + + | Bilirubin | 1.5 | 0.1 - 1.5 mg/dL | [facility] | | | Total | | | [facility] | | | | | | MEDICAL | | | | | | CENTER - | | | | | | LABORATORY | | + + + + + + | Total | 8.6 (H) | 6.0 - 7.8 g/dL | [facility] | | | Protein | | | [facility] | | | | | | MEDICAL | | | | | | CENTER - | | | | | | LABORATORY | | + + + + + + | AST | 227 (H) | 10 - 42 U/L | [facility] | | | | | | [facility] | | | | | | MEDICAL | | | | | | CENTER - | | | | | | LABORATORY | | + + + + + + | ALT | 154 (H) | 6 - 45 U/L | [facility] | | | | | | [facility] | | | | | | MEDICAL | | | | | | CENTER - | | | | | | LABORATORY | | + + + + + + | Alkaline | 161 (H) | 40 - 110 U/L | [facility] | | | Phosphatase | | | [facility] | | | | | | MEDICAL | | | | | | CENTER - | | | | | | LABORATORY | | + + + + + + | Globulin | 5.5 | g/dL | [facility] | | | [...] + + + + | BUN/Creatin | 7.0 | | [facility] | | | ine [...] + | [facility] | [address] | [place] | [phone] | | [facility] | | [address] | | | - LABORATORY | | | | + + + + + CBC with Differential (04/17/2015 5:21 PM PDT) + + + + + + | Component | Value | Ref Range | Performed | Pathologist | | | | | At | Signature | + + + + + + | White Blood | 7.1 | 4.0 - 11.0 K/uL | [facility] | | | Cells | | | [facility] | | | | | | MEDICAL | | | | | | CENTER - | | | | | | LABORATORY | | + + + + + + | Red Blood | 4.93 | 4.30 - 5.70 | [facility] | | | Cells | | M/uL | [facility] | | | | | | MEDICAL | | | | | | CENTER - | | | | | | LABORATORY | | + + + + + + | Hemoglobin | 16.0 | 13.5 - 18.0 | [facility] | | | | | g/dL | [facility] | | | | | | MEDICAL | | | | | | CENTER - | | | | | | LABORATORY | | + + + + + + | Hematocrit | 48.4 | 40.0 - 51.0 % | [facility] | | | | | | [facility] | | | | | | MEDICAL | | | | | | CENTER - | | | | | | LABORATORY | | + + + + + + | MCV | 98.2 | 83.0 - 101.0 fL | [facility] | | | | | | [facility] | | | | | | MEDICAL | | | | | | CENTER - | | | | | | LABORATORY | | + + + + + + | MCH | 32.5 | 28.0 - 35.0 pg | [facility] | | | | | | [facility] | | | | | | MEDICAL | | | | | | CENTER - | | | | | | LABORATORY | | + + + + + + | MCHC | 33.1 | 32.0 - 36.0 | [facility] | [...] + + + + | Platelet | 110 (L) | 140 - 440 K/uL | [facility] | | | Count | | | [facility] | | | | | | MEDICAL | | | | | | CENTER - | | | | | | LABORATORY | | + + + + + + | MPV | 8.7 | fL | [facility] | | | | | | [facility] | | | | | | MEDICAL | | | | | | CENTER - | | | | | | LABORATORY | | + + + + + + | % | 42.8 (L) | 45.0 - 82.0 % | [facility] | | | Neutrophils | | | [facility] | | | | | | MEDICAL | | | | | | CENTER - | | | | | | LABORATORY | | + + + + + + | % | 36.2 | 20.0 - 45.0 % | [facility] | | | Lymphocytes | | | [facility] | | | | | | MEDICAL | | | | | | CENTER - | | | | | | LABORATORY | | + + + + + + | % Monocytes | 15.1 (H) | 4.0 - 12.0 % | [facility] | | | | | | [facility] | | | | | | MEDICAL | | | | | | CENTER - | | | | | | LABORATORY | | + + + + + + | % | 4.6 | 0.0 - 5.0 % | [facility] | | | Eosinophils | | | [facility] | | | | | | MEDICAL | | | | | | CENTER - | | | | | | LABORATORY | | + + + + + + | % Basophils | 1.3 (H) | 0.0 - 1.0 % | [facility] | | | | | | [facility] | | | | | | MEDICAL | | | | | | CENTER - | | | | | | LABORATORY | | + + + + + + | Absolute | 3.00 | 1.80 - 8.50 | [facility] | | | Neutrophils | | K/uL | [facility] | | | | | | MEDICAL | | | | | | CENTER - | | | | | | LABORATORY | | + + + + + + | Absolute | 2.60 | 0.60 - 3.20 | [facility] | [...] ST. | [address] | [place] | [phone] | | [facility] | | [address] | | | - LABORATORY | | | | + + + + + documented in this encounter Visit Diagnoses + + | Diagnosis | + + | Alcoholic hepatitis without ascites - Primary Acute alcoholic hepatitis | + + | Elevated LFTs Other abnormal blood chemistry | + + | Drug use Other, mixed, or unspecified nondependent drug abuse, unspecified | + + documented in this encounter
--- OUTSIDE RECORDS SUMMARY | ~2020-04-16 | XMS | Encounter Summary ---
Demographics + + + | Address | [address] | | | [place] [address] | + + + | Home Phone [...] Author + + + | Author | [facility] | | | and [place] | + + + | Organization | [facility] | | | [...] Team Providers + +------+ + | Care Textile Conservator Name | Role | Phone | + +------+ + | Orly Villavicencio MD | PCP | | + +------+ + Reason for Visit +---------+--------+ + | Reason | Onset | Comments | | | Date | | +---------+--------+ + | Results | 07/03/ | | | | 2019 | | +---------+--------+ + Encounter Details +--------+ + + + + | Date | Type | Department | Care Team | Description | +--------+ + + + + | 07/03/ | Telephone | [facility] | Orly Villavicencio | Results | | 2019 | | MEDIC[address] | [address] | | | | | [place], | [place] | | | | | [place] [address] | [place] [address] | | | | | [phone] | | | | | | | [...] Telephone Encounter - Natalia Hastings RN - 07/03/2019 1:37 PM PSTHeather notified and melissa balized understanding. P STTelephone Encounter - Orly Villavicencio MD - 07/03/2019 11:44 AM PSTPlease call He ather and let know his labs overall looked stable, but his ammonia level is high. Please make sure he takes lactulose daily - as much as he needs - 3-4x a day as needed. Elliota inocencio is to produce 2-3 soft runny stools a day. Thanks. documented i n this encounter Plan of Treatment Not on filedocumented as of this encounter Visit Diagnoses Not on filedocumented in this encounter
--- OUTSIDE RECORDS SUMMARY | ~2020-04-16 | XMS | Encounter Summary ---
Demographics + + + | Address | [address] | | | [place] [address] | + + + | Home Phone | | + + + | Preferred Language | Unknown | + + + | Marital Status | Single | + + + | Cheondoism Affiliation | Unknown | + + + [...] Team Providers + +------+ + | Care Fisher Swordfish Name | Role | Phone | + +------+ + | Orly Villavicencio MD | PCP | | + +------+ + Reason for Visit +---------+--------+ + | Reason | Onset | Comments | | | Date | | +---------+--------+ + | Results | 04/18/ | | | | 2014 | | +---------+--------+ + Encounter Details +--------+ + + + + | Date | Type | Department | Care Team | Description | +--------+ + + + + | 04/18/ | Telephone | [facility] | Orly Villavicencio | Results | | 2014 | | MEDICINE [address] | [address] | | | | | [place], | [place] | | | | | [place] [address] | [place] [address] | | | | | [phone] | [phone] | | | | | | | [...] this encounter Miscellaneous Notes Telephone Encounter - Darling, Natalia, RN - 04/18/2015 8:41 AM PDTHeather notified and melissa balized understanding. The US was scheduled for Tuesday04/29/15 with a 0900 check in. NPO 8 hours prior. Lesia notified and verbalized understanding. elephone Encounter - Orly Villavicencio MD - 04/18/2015 7:49 AM PDTPlease let patient know labs showed: Stable liver function. His ammonia level has gone down and he should continue with lactulose TID as he is taking i t or for as long as he has at least 3 soft stools a day. One blood test is still pending and will be available next week. No other changes in medication needed at this time. Please schedule his liver US. Thanks. documented i n this encounter Plan of Treatment Not on filedocumented as of this encounter Visit Diagnoses Not on filedocumented in this encounter"
--- OUTSIDE RECORDS SUMMARY | ~2020-04-16 | XMS | Encounter Summary ---
Demographics + + + | Address | [address] | | | [place] [address] | + + + | Home Phone [...] Team Providers + +------+ + | Care Imaging Science Professor Name | Role | Phone | + +------+ + | Orly Villavicencio MD | PCP | | + +------+ + Encounter Details +--------+ + + + + | Date | Type | Department | Care Team | Description | +--------+ + + + + | 10/24/ | Abstract | [facility] | Orly Villavicencio | | | 2020 | | MEDICINE [address] | [address] | | | | | [place], | [address] [place] | | | | | [place] [address] | [place] [address] | | | | | [phone] | | | | | | | [...]
--- OUTSIDE RECORDS SUMMARY | ~2020-04-16 | XMS | Encounter Summary ---
Demographics + + + | Address | [address] | | | [place] [address] | + + + | Home Phone [...] Team Providers + +------+ + | Care Heater Operator Name | Role | Phone | + +------+ + | Orly Villavicencio MD | PCP | | + +------+ + Reason for Visit + + + | Reason | Comments | + + + | Medication | | | Management | | + + + Encounter Details +--------+---------+ + + + | Date | Type | Department | Care Team | Description | +--------+---------+ + + + | 05/02/ | Office | [facility] | Orly Villavicencio | Alcoholism (HCC) | | 2018 | Visit | [address] | [address] | (Primary Dx); | | | | [address] [place] [facility], | [address] | [place] hepatitis C | | | | [place] [address] | [place] [address] | without hepatic coma | | | | [phone] | [phone] | (HCC); Depression, | | | | | | unspecified | | | | | | depression type; | | | | | | Ascites due to | | | | | | alcoholic hepatitis | +--------+---------+ + + + Social History [...] + | Blood Pressure | 140/76 | 05/02/2018 8:36 AM | | | | | PDT | | + + + + + | Pulse | 82 | 05/02/2018 8:36 AM | | | | | PDT | | + + + + + | Temperature | 37.1 C (98.7 F) | 05/02/2018 8:36 AM | | | | | PDT | | + + + + + | Respiratory Rate | 18 | 05/02/2018 8:36 AM | | | | | PDT | | + + + + + | Oxygen Saturation | 94% | 05/02/2018 8:36 AM | | | | | PDT | | + + + + + | Inhaled Oxygen | - | - | | | Concentration | | | | + + + + + | Weight | 119.9 kg (264 lb 5.3 | 05/02/2018 8:36 AM | | | | oz) | PDT | | + + + + + | Height | - | - | | + + + + + | Body Mass Index | 36.89 | 09/30/2017 4:26 PM | | | | | PST | | + + + + + documented in this encounter Patient Instructions Patient Instructions Nadja Khan CMA - 05/02/2018 8:45 AM PDTCrisis Response Team - Suicide Hotline - Please do blood work today. Follow up in 1 month. documented in this encounter Progress Notes Orly Villavicencio MD - 05/02/2018 8:45 AM PDTFormatting of this note might be diff erent from the original. Chief Complaint Patient presents with Medication Management HPI: Hossein Holcomb is here by himself today. He has known depression. He was started on escitalopram 4 months ago, and was supposed to f ollow up after 3 weeks. He was unable to follow up, and is now seen, 4 months later. He had to stop the medication due to visual hallucinations. He admits to intermittent suicidal ideations; Wants to "throw in the towel." Denies wanting to end his life today. Feels low as he no longer is with his long-time girlfriend of 8 years. Living with his sister at his time. He continues to drink. He has tried to cut back on this. Drinks about a six pack of beer daily. He did not follow up with GI as recommended, and he also did not do his US of the abdomen, as recommended earlier this year. Past Medical History: Diagnosis Date Chest trauma, penetrating bucked off a horse Pneumonia Current Outpatient Prescriptions on File Prior to Visit Medication Sig Dispense Refill furosemide (LASIX) 40 mg tablet Take 1 tablet by mouth Daily. 30 tablet 1 Lactulose 20 GM/30ML SOLN Take 20 g by mouth 3 times daily. or more to produce 2-3 soft stools a day. 2000 mL 1 LORazepam (ATIVAN) 1 mg tablet take 1 tablet by mouth every 6 hours if needed for anxie ty 20 tablet 0 potassium chloride (KLOR-CON M20) 20 mEq ER tablet Take 1 tablet by mouth Daily. 30 tab let 1 No current facility-administered medications on file prior to visit. No Known Allergies ROS: Denies chest pain, shortness of breath, palpitations. Denies any new bladder or bowel disturbances. Denies falls. Physical Examination: BP 140/76 | Pulse 82 | Temp 37.1 C (98.7 F) (Temporal) | Resp 18 | Wt 119.9 kg (264 lb 5.3 oz) | SpO2 94% | BMI 36.89 kg/m General Appearance: Patient not in pain or any respiratory distress. HEENT: [place] conjunctivae, yellowish sclerae. No neck vein engorgement. Thyroid not enlarg ed. No enlarged lymph nodes in the head or neck. Respiratory: Clear breath sounds. No crackles/wheezes. Cardiovascular: Good S1S2, No murmurs. No rubs/gallops. Rhythm regular. Musculoskeletal: 2+ bipedal edema. No open wounds. Asterixis (-) GI: Abdomen soft with normoactive bowel sounds. No rebound tenderness or guarding. No CVA tenderness. Globular abdomen with probable ascitic fluid. No masses/bruits. No spider angiomata. No caput medusae. Assessment: 1. Alcoholism (HCC) 2. Chronic hepatitis C without hepatic coma (HCC) CBC with Differential Comprehensive Metabolic Panel Protime INR Ammonia 3. Depression, unspecified depression type Plan: Check labs today. He declines counseling or rehab. He had tried this in the past and complained that this did not help him at all. He is not motivated to quit drinking. He declines further antidepressant therapy. He was advised to call the Crisis Response Team should he feel suicidal. He instructed me not to call his ex-girlfriend Lesia, or his sister. US abdomen scheduled with patient today. Depending on labs and his US, he may benefit from the addition of spironolactone. Complicating his medication management is the non-compliance with follow up appointments, m aking it difficult to monitor for side effects and medication adjustment. Spent 25 minutes in wqma-ob-zjnh time with the patient, with greater than 50% of time spent in counseling and discussion of the above mentioned problems. He is advised to comply with recommendations and follow up. Return in about 4 weeks (around 05/30/2018) for follow up. I, Orly Villavicencio MD, personally performed the services described in this documentation as sc ribed by Nadja Khan CMA, and the documentation is both accurate and complete. Encounter Note Electronically Signed by: Orly Villavicencio MD 05/02/2018 documented i n this encounter Plan of Treatment Not on filedocumented as of this encounter Results US Abdomen Complete (05/12/2018 12:42 PM PDT) + + | Specimen | + [...] mildly | | | enlarged. Splenomegaly likely medical claims representative of portal venous | | | [...] | Keegan, Rad Results In - 05/12/2018 2:10 PM PDT US ABDOMEN COMPLETE 05/12/2018 12:08 PM [...] enlarged. | | | | Splenomegaly likely medical claims representative of portal venous hypertension. | | [...] | | | + +---------+ + + Ammonia (05/02/2018 9:28 AM PDT) + +--------+ + + + | Component | Value | Ref Range | Performed | Pathologist | | | | | At | Signature | + +--------+ + + + | Ammonia | 41 (H) [...] [address] | [place] | [phone] | | [facility] | | [address] | | | - LABORATORY | | | | + + + + + Protime INR (05/02/2018 9:28 AM PDT) + + + + + + | Component | Value | Ref Range | Performed | Pathologist | | | | | At | Signature | + + + + + + | Prothrombin | 16.6 (H) | 11.3 - 13.9 | [facility] [...] | | Oral Anticoagulation | | [facility] | | | | Range: 2.0 [...] [address] | [place] | [phone] | | [facility] | | [address] | | | - LABORATORY | | | | + + + + + Comprehensive Metabolic Panel (05/02/2018 9:28 AM PDT) + + + + + + | Component | Value | Ref Range | Performed | Pathologist | | | | | At | Signature | + + + + + + | Na | 130 (L) | 136 - 149 | [facility] | | | | | mmol/L | [facility] | | | | | | MEDICAL | | | | | | CENTER - | | | | | | LABORATORY | | + + + + + + | K | 3.6 | 3.5 - 5.1 | [facility] | | | | | mmol/L | [facility] | | | | | | MEDICAL | | | | | | CENTER - | | | | | | LABORATORY | | + + + + + + | Cl | 91 (L) | 98 - 109 mmol/L | [facility] | | | | | | [facility] | | | | | | MEDICAL | | | | | | CENTER - | | | | | | LABORATORY | | + + + + + + | CO2 | 29 | 24 - 31 mmol/L | [facility] | | | | | | [facility] | | | | | | MEDICAL | | | | | | CENTER - | | | | | | LABORATORY | | + + + + + + | Anion Gap | 10 | 3 - 16 mmol/L | [facility] | | | | | | [facility] | | | | | | MEDICAL | | | | | | CENTER - | | | | | | LABORATORY | | + + + + + + | Glucose | 107 | 70 - 109 mg/dL | [facility] | | | | | | [facility] | | | | | | MEDICAL | | | | | | CENTER - | | | | | | LABORATORY | | + + + + + + | BUN | 1 (L) | 7 - 18 mg/dL | [facility] | | | | | | [facility] | | | | | | MEDICAL | | | | | | CENTER - | | | | | | LABORATORY | | + + + + + + | Creatinine | 0.69 | 0.60 - 1.30 | [facility] | | | | | mg/dL | [facility] | | | | | | MEDICAL | | | | | | CENTER - | | | | | | LABORATORY | | + + + + + + | eGFR, | >60Comment: GLOMERULAR | >=60 | [facility] | | | non- | FILTRATION | mL/min/1.73m2 | [facility] | | | [place] | RATE,ESTIMATED | | MEDICAL | | | | mL/min/1.10g4Mhmz than | | CENTER - | | [...] + + + + | Bilirubin | 4.0 (H)Comment: This is | 0.1 - 1.5 mg/dL | [facility] | | | Total | an appended report. | | [facility] | | | | These results have been | | MEDICAL | | | | appended to a previously | | CENTER - | | | | preliminary verified | | LABORATORY | | | | report. | | | | + + + [...] + + + + | AST | 151 (H)Comment: This is | 10 - 42 U/L | [facility] | | | | an appended report. | | [facility] | | | | These results have been | | MEDICAL | | | | appended to a previously | | CENTER - | | | | preliminary verified | | LABORATORY | | | | report. | | | | + + + + + + | ALT | 54 (H)Comment: This is | 6 - 45 U/L | [facility] | | | | an appended report. | | [facility] | | | | These results have been | | MEDICAL | | | | appended to a previously | | CENTER - | | | | preliminary verified | | LABORATORY | | | | report. | | | | + + + + + + | Alkaline | 104Comment: This is an | 40 - 110 U/L | [facility] | | | Phosphatase | appended report. These | | [facility] | | | | results have been | | MEDICAL | | | | appended to a previously | | CENTER - | | | | preliminary verified | | LABORATORY | | | | report. | | | | + + + [...] | bulin Ratio | | | [facility] | | | | | | MEDICAL | | | | | | CENTER - | | | | | | LABORATORY | | + + + + + + | BUN/Creatin | 1.4 | | [facility] | | | ine Ratio | | | [facility] | | [...] ST. | [address] | [place] | [phone] | | [facility] | | [address] | | | - LABORATORY | | | | + + + + + CBC with Differential (05/02/2018 9:28 AM PDT) + + + + + + | Component | Value | Ref Range | Performed | Pathologist | | | | | At | Signature | + + + + + + | White Blood | 4.8 | 4.0 - 11.0 K/uL | [facility] | | | Cells | | | [facility] | | | | | | [facility]ICAL | | | | | | CENTER - | | | | | | LABORATORY | | + + + + + + | Red Blood | 4.63 | 4.30 - 5.70 | [facility] | | | Cells | | M/uL | . [facility] | | | | [...] + + + + | Hematocrit | 45.4 | 40.0 - 51.0 % [...] [facility] | | | | | | [facility] [...] MCHC | 34.7 | 32.0 - 36.0 | [facility] | | | | | g/dL | [facility] | | | | | | MEDICAL | | | | | | CENTER - | | | | | | LABORATORY | | + + + + + + | RDW-CV | 15.4 (H) | <15.0 % | [facility] | | | | | | [facility] | | | | | | MEDICAL | | | | | | CENTER - | | | | | | LABORATORY | | + + + + + + | Platelet | 106 (L) | 140 - 440 K/uL | [facility] | | | Count | | | [facility] | | | | | | MEDICAL | | | | | | CENTER - | | | | | | LABORATORY | | + + + + + + | MPV | 7.7 | fL | [facility] | | | | | | [facility] | | | | | | MEDICAL | | | | | | CENTER - | | | | | | LABORATORY | | + + + + + + | % | 54.9 | 45.0 - 82.0 % | [facility] | | | Neutrophils | | | [facility] | | | | | | MEDICAL | | | | | | CENTER - | | | | | | LABORATORY | | + + + + + + | % | 23.2 | 20.0 - 45.0 % [...] + + + + | % | 2.1 | 0.0 - 5.0 % [...] + + + + | Absolute | 2.70 | 1.80 - 8.50 | [facility] | | | Neutrophils | | K/uL | [facility] | | | | | | MEDICAL | | | | | | CENTER - | | | | | | LABORATORY | | + + + + + + | Absolute | 1.10 | 0.60 - 3.20 | [facility] | | | Lymphocytes | | K/uL | [facility] | | | | | | MEDICAL | | | | | | CENTER - | | | | | | LABORATORY | | + + + + + + | Absolute | 0.90 | 0.00 - 1.00 | [facility] | | | Monocytes | | K/uL | [facility] | | | | | | MEDICAL | | | | | | CENTER - | | | | | | LABORATORY | | + + + + + + | Absolute | 0.10 | 0.00 - 0.40 | [facility] | | | Eosinophils | | K/uL | [facility] | | | | | | MEDICAL | | | | | | CENTER - | | | | | | LABORATORY | | + + + + + + | Absolute | 0.00 | 0.00 - 0.10 | [facility] | [...] [address] | [place] | [phone] | | [facility] | | [address] | | | - LABORATORY | | | | + + + + + documented in this encounter Visit Diagnoses + + | Diagnosis | + + | Alcoholism (HCC) - Primary Other and unspecified alcohol dependence, unspecified | | drinking behavior | + + | Chronic hepatitis C without hepatic coma (HCC) | + + | Depression, unspecified depression type | + + | Ascites due to alcoholic hepatitis | + + documented in this encounter
--- OUTSIDE RECORDS SUMMARY | ~2020-04-16 | XMS | Clinical Summary ---
Demographics + + + | Address | [address] | | | [place] [address] | + + + | Home Phone | | + + + | Preferred Language | Unknown | + + + | Marital Status | Single | + + + | Gnosticist Affiliation | NON | + + + [...] Team Providers + +------+ + | Care Corn Husker Machine Operator Name | Role | Phone | + +------+ + PCP | Unavailable | + +------+ + Source Comments LELA is fully live on both [facility] and [facility] InPatient.[facility] Allergies No Known Allergies Medications + + [...] | | | | vaccination (#1) | 9 | | | + + +-------+ + [...] | | | + +--------+ +--------+-------+---------+--------+ | [facility] | | [id number] | Effect | | | Agency | [...] Person | Self | [birth year] | | [address] | | | al/Fam | | 1955 | [phone] | [place] [address] | | | alex | | | 1 (Home) | | + +--------+ +--------+ + + | Hossein Holcomb | Third | Self | [birth year] | | [address] | | | Republican | | 1955 | [phone] | [place] [address] | | | Liabil | | | 1 (Home) | | | | ity | | | | | + +--------+ +--------+ + +
--- OUTSIDE RECORDS SUMMARY | ~2020-04-16 | XMS | Encounter Summary ---
Demographics + + + | Address | [address] | | | [place] [address] | + + + | Home Phone [...] + + + | Author | [facility] | | | and [place] | + + + | Organization | [facility] | | | [...] Team Providers + +------+ + | Care Turbine Assembler Name | Role | Phone | [...] + + | 06/01/ | Office | [facility] | Orly Villavicencio | Alcoholic liver | | 2018 | Visit | [address] | [address] | disease (HCC) | | | | [place], | [place] | (Primary Dx); | | | | [place] [address] | [facility] [place] [address] | Chronic hepatitis C | | | | [phone] | [phone] | without hepatic coma | | | [...] in pain or any respiratory distress. HEENT: [place] conjunctivae, anicteric sclerae. No neck vein engorgement. [...] in the past. Spent 25 minutes in mrqi-sa-[id number] time with the patient, with greater than [...]
--- OUTSIDE RECORDS SUMMARY | ~2020-04-16 | XMS | Encounter Summary ---
Demographics + + + | Address | [address] | | | [place] [address] | + + + | Home Phone [...] + + + | Author | [facility] | | | and [place] | + + + | Organization | [facility] | | | [...] Team Providers + +------+ + | Care Canal Boat Operator Name | Role | Phone | [...] Description | +--------+--------+ + + + | 08/23/ | Refill | [facility] | Orly Villavicencio | Medication Refill | | 2019 | | [address] | [address] | | | | | [place], | [place] [place] | | | | | [place] [address] | [place] [address] | | | | | [phone] | [phone] | | | | | | | [...]
--- OUTSIDE RECORDS SUMMARY | ~2020-04-16 | XMS | Encounter Summary ---
Demographics + + + | Address | [address] | | | [place] [address] | + + + | Home Phone | | + + + | Preferred Language | Unknown | + + + | Marital Status | Single | + + + | Christian Affiliation | Unknown | + + + | Race | or | + + + | Ethnic Group | Not or | + + + Author + + + | Author | [facility] | | | and [place] | + + + | Organization | [facility] | | | [...] Team Providers + +------+ + | Care Drosser Name | Role | Phone | + +------+ + | Orly Villavicencio MD | PCP | | + +------+ + Reason for Visit +---------+--------+ + | Reason | Onset | Comments | | | Date | | +---------+--------+ + | Results | 03/30/ | | | | 2015 | | +---------+--------+ + Encounter Details +--------+ + + + + | Date | Type | Department | Care Team | Description | +--------+ + + + + | 03/30/ | Telephone | [facility] | Orly Villavicencio | Results | | 2016 | | [address] | [address] | | | | | [place], | [place] | | | | | [place] [address] | [place] [address] | | | | | [phone] | [phone] | | | | | | | [...] Encounter - Natalia Hastings RN - 03/30/2016 8:38 AM PDTI spoke to Lesia, and she was notified. Per Lesia, just use [place] insurance. Per Patient as voiced by Lesia, DO NOT attempt to get Cherelle Jackson authorization/Approval by Cherelle jackson. These n otes entered into the referral. info specialist notified. elephone Encounter - Natalia Hastings RN - 8:29 AM PDTMessage left for Lesia to call.Electronically signed by Natalia Hastings RN a t 03/30/2016 8:29 AM PDTTelephone Encounter - Orly Villavicencio MD - 03/30/2016 7: 49 AM PDTPlease let girlfriend know his labs showed improving ammonia levels. He testes negative for HIV which is good news. Hepatitis C continues to be active. Please follow up on GI referral. Thanks. documented i n this encounter Plan of Treatment Not on filedocumented as of this encounter Visit Diagnoses Not on filedocumented in this encounter"
--- OUTSIDE RECORDS SUMMARY | ~2020-04-16 | XMS | Encounter Summary ---
Demographics + + + | Address | [address] | | | [place] [address] | + + + | Home Phone | | + + + | Preferred Language | Unknown | + + + | Marital Status | Single | + + + | Evangelical Affiliation | Unknown | + + + | Race | or | + + + | Ethnic Group | Not or | + + + Author + + + | Author | [facility] | | | and [place] | + + + | Organization | [facility] | | | [...] Team Providers + +------+ + | Care Therapeutic Program Worker Name | Role | Phone | + +------+ + | Orly Villavicencio MD | PCP | | + +------+ + Reason for Visit + +--------+ + | Reason | Onset | Comments | | | Date | | + +--------+ + | Appointment | 06/25/ | rescheduled | | | 2019 | | + +--------+ + Encounter Details +--------+ + + + + | Date | Type | Department | Care Team | Description | +--------+ + + + + | 06/25/ | Telephone | [facility] | Orly Villavicencio | Appointment | | 2019 | | [facility] [address] | [address] | (rescheduled) | | | | [place], | [place] [facility] | | | | | [place] [address] | [place] [address] | | | | | [phone] | [phone] | | | | | | | [...] this encounter Miscellaneous Notes Telephone Encounter - Betty Rivers - 06/25/2019 9:24 AM PSTHeather stated she was called into work today so patient wouldn't make it to his appointment so she rescheduled it for ne xt Tuesday. She wanted provider to know he is doing much better and has been taking his medi cations. documented in this encounter Plan of Treatment Not on filedocumented as of this encounter Visit Diagnoses Not on filedocumented in this encounter
--- OUTSIDE RECORDS SUMMARY | ~2020-04-16 | XMS | Encounter Summary ---
Demographics + + + | Address | [address] | | | [place] [address] | + + + | Home Phone | | + + + | Preferred Language | Unknown | + + + | Marital Status | Single | + + + | Jainism Affiliation | Unknown | + + + | Race | or | + + + | Ethnic Group | Not or | + + + Author + + + | Author | [facility] | | | and [place] | + + + | Organization | [facility] | | | [...] Team Providers + +------+ + | Care Preparer Name | Role | Phone | + +------+ + | Orly Villavicencio MD | PCP | | + +------+ + Reason for Visit + +--------+ + | Reason | Onset | Comments | | | Date | | + +--------+ + | Medication Prior | 03/23/ | Triamcinalone guadalupe | | Authorization | 2015 | | + +--------+ + Encounter Details +--------+ + + + + | Date | Type | Department | Care Team | Description | +--------+ + + + + | 03/23/ | Telephone | [facility] | Orly Villavicencio | Medication Prior | | 2015 | | [address] | [address] | Authorization | | | | [place], | [place] [facility] | (Triamcinalone | | | | [place] [address] | [place] [address] | lotion) | | | | [phone] | [phone] | | | | | | | [...] Telephone Encounter - Yusra Carter RN - 03/24/2016 10:39 AM PDTPrescription updated El ectronically signed by Yusra Carter RN at 03/24/2016 10:39 AM PDTTelephone Encounter - Orly Lobo MD - 03/23/2016 12:40 PM PDTPlease change Rx to cream. Thanks. elephone En counter - Yusra Carter RN - 03/23/2016 9:54 AM PDTReceived prior authorization request : Insurance name: [facility] Insurance phone: Medication and Strength: Triamcinolone Lotion Directions: apply to affected areas 3 times a day for 2 weeks Quantity: 120 ml Diagnosis : Pharmacy: [facility] Prior medications tried: Insurance will cover Triamcinolone cream or ointment. Would you like to change prescription or pursue prior authorization? documented in this e ncounter Plan of Treatment Not on filedocumented as of this encounter Visit Diagnoses Not on filedocumented in this encounter"
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
--- OUTSIDE RECORDS SUMMARY | ~2020-04-16 | XMS | Encounter Summary ---
Demographics + + + | Address | [address] | | | [place] [address] | + + + | Home Phone [...] Author + + + | Author | [facility] | | | and [place] | + + + | Organization | [facility] | | | [...] Providers + +------+ + | Care Entertainment Musician Name | Role | Phone | + [...] | 08/23/ | Refill | [facility] | Orly Villavicencio | Medication Refill | | 2019 | | [address] | [address] | | | | | [place], | [place] | | | | | [place] [address] | [place] [address] | | | | | [phone] | [phone] | | | | | | | [...]
--- OUTSIDE RECORDS SUMMARY | ~2020-04-16 | XMS | Encounter Summary ---
Demographics + + + | Address | [address] | | | [place] [address] | + + + | Home Phone [...] Team Providers + +------+ + | Care Polymer Tester Name | Role | Phone | + +------+ + | Orly Villavicencio MD | PCP | | + +------+ + Reason for Visit + + + | Reason | Comments | + + + | Detox Evaluation | | + + + Encounter Details +--------+ + + + + | Date | Type | Department | Care Team | Description | +--------+ + + + + | 06/19/ | Emergency | [facility] | Mamadou Del Real MD | Depression, | | 2018 | | [facility] | [address] | unspecified | | | | CENTER [address] | LORENA CARRILLO MD | depression type | | | | [place] | [address] | (Primary Dx); | | | | [address] | | Alcohol abuse | | | | [phone] | | | +--------+ + + + [...] + + + | Blood Pressure | 163/87 | 06/19/2019 10:26 AM | | | | | PDT | | + + + + + | Pulse | 86 | 06/19/2019 10:26 AM | | | | | PDT | | + + + + + | Temperature | 37.1 C (98.7 F) | 06/19/2019 10:26 AM | | | | | PDT | | + + + + + | Respiratory Rate | 18 | 06/19/2019 10:26 AM | | | | | PDT | | + + + + + | Oxygen Saturation | 94% | 06/19/2019 10:26 AM | | | | | PDT | | + + + + + | Inhaled Oxygen | - | - | | | Concentration | | | | + + + + + | Weight | 113.4 kg (250 lb) | 06/19/2019 10:26 AM | | | | | PDT | | + + + + + | Height | 177.8 cm (5' 10") | 06/19/2019 10:26 AM | | | | | PDT | | + + + + + | Body Mass Index | 35.87 | 06/19/2019 10:26 AM | | | | | PDT | | + + + + + documented in this encounter Discharge Instructions AttachmentsThe following attachments cannot be sent through Care Everywhere.Addiction, Gen yvan (Cameroonian)documented in this encounter Medications at Time of Discharge + + + +---------+ + + | Medication | Sig | Dispensed | Refills | Start | End Date | | | | | | Date | | + + + +---------+ + + | Lactulose 20 | Take 20 g by mouth 3 | 2000 mL | 1 | 04/17/20 | | | GM/30ML SOLN | times daily. or | | | 19 | | | | more to produce 2-3 | | | | | | | soft stools a day. | | | | | + + + +---------+ + + | furosemide (LASIX) | 1 tablet a day. | 90 | 1 | 04/16/20 | | | 40 mg tablet | | tablet | | 19 | 0 | + + + +---------+ + + documented as of this encounter ED Notes Mamadou Del Real MD - 06/19/2019 10:30 AM PDTFormatting of this note might be different from t he original. [facility] Hossein Holcomb Emergency Department Encounter Note [address] [place] [id number] PCP:Orly Villavicencio MD [phone] CHIEF COMPLAINT: Chief Complaint Patient presents with Detox Evaluation ED Room: [facility] [address] Hossein Holcomb is a 63 y.o. male who presents to the Emergency Department due to concern o f alcohol abuse. Patient is a coming by his significant other. Reports drinking daily. La st drink was approximately 10 PM yesterday. He denies any physical complaints at this time and states that he just wants a beer. He denies any suicidal homicidal ideation. Has been having some what sounds like hallucinations. He has been thinking that before sending him t ext messages with people singing happy birthday. No history of seizures. 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 (Patient taking differently: 2 tablets a day.) Lactulose 20 GM/30ML SOLN Take 20 g by mouth 3 times daily. or more to produce 2-3 soft stools a day. ALLERGIES No Known Allergies FAMILY AND SOCIAL HISTORY History reviewed. No pertinent family history. Social History Socioeconomic History Marital status: Single Spouse name: Not on file Number of children: 1 Years of education: Not on file Highest education level: Not on file Occupational History Occupation: Unemployed Comment: Disabled Tobacco Use Smoking status: Current Every Day Smoker Packs/day: 0.50 Years: 45.00 Pack years: 22.50 Types: Cigarettes Smokeless tobacco: Never Used Substance and Sexual Activity Alcohol use: Yes Comment: Drinks mostly beer, "as much as I can get my hands on." Drug use: Not Currently Types: Marijuana, Methamphetamines Sexual activity: Yes Partners: Female Social History Narrative Born in [place] Lives with sister. He is "uncertain" how many other children he has. REVIEW OF SYSTEMS As in history of present illness. A 10 system review was otherwise negative. PHYSICAL EXAM VITAL SIGNS: (first vital signs):Temp: 37.1 C (98.7 F) Pulse: 86 Resp: 18 SpO2: 94 % BP : 163/87 Body mass index is 35.87 kg/m. Constitutional: male patient, HEENT: Atraumatic, PERRL, Oropharynx benign. Conjunctiva injected and has some conjunctiv al hemorrhage on left eye Neck: Supple with full range of motion. No JVD, no lymphadenopathy, no meningismus and No Cervical Spine Tenderness to palpation or step-off noted.. Respiratory: Good air movement bilaterally. No wheezes, No, rales. Cardiovascular: Normal S1 S2 Abdomen: Soft, nontender, nondistended Extremities: Nontender. Skin: Warm, Dry, No rashes Neurologic: Alert & oriented. Psychiatric: Normal mood, affect and judgement. EKG 12-lead EKG shows LABS Results for orders placed or performed during the hospital encounter of 06/19/19 CBC with Differential Result Value Ref Range WBC 4.7 4.0 - 11.0 K/uL RBC 4.37 4.30 - 5.70 M/uL Hemoglobin 14.0 13.5 - 18.0 g/dL Hematocrit 40.6 40.0 - 51.0 % MCV 92.9 83.0 - 101.0 fL MCH 32.0 28.0 - 35.0 pg MCHC 34.5 32.0 - 36.0 g/dL RDW-CV 13.9 <15.0 % RDW-SD 47.9 (H) 35.1 - 46.3 fL Platelet Count 68 (L) 140 - 440 K/uL MPV 10.6 6.5 - 12.4 fL Immature Platelet Fraction % Neutrophils 63.9 45.0 - 82.0 % % Lymphocytes 20.9 20.0 - 45.0 % % Monocytes 11.2 4.0 - 12.0 % % Eosinophils 2.1 0.0 - 5.0 % % Basophils 1.7 (H) 0.0 - 1.0 % % Immature Granulocytes 0.2 0.0 - 0.4 % Absolute Neutrophils 3.02 1.80 - 8.50 K/uL Absolute Lymphocytes 0.99 0.60 - 3.20 K/uL Absolute Monocytes 0.53 0.00 - 1.00 K/uL Absolute Eosinophils 0.10 0.00 - 0.40 K/uL Absolute Basophils 0.08 0.00 - 0.10 K/uL Absolute Immature Granulocytes 0.01 0.00 - 0.03 K/uL % nRBC 0 0 - 2 per 100 WBCs Absolute nRBC 0.00 0.00 - 0.01 K/uL IMAGING STUDIES (X-Rays interpreted by ED Physician) ED COURSE & MEDICAL DECISION MAKING Pertinent Labs & Imaging studies were reviewed along with EMS notes and [facility] record s if applicable. (See chart for details) Medications and Allergy list reviewed. Nurses note and old records were reviewed The patient was seen and examined, Patient is a 63-year-old male with past medical history of alcohol abuse [facility]. Reports that he attempted suicide 1 month ago. Curr ently he denies any suicidal homicidal ideation. Reports the last drink was yesterday at 10 PM. He denies any history of withdrawal seizures though he does get shaky and nauseous. A t time of examination asked him how he felt any told he just wanted another beer. He was in no acute distress. He was not tachycardic he was mildly hypertensive. Given that I put in for some blood work. I was then notified by staff that patient had decided to leave AMA. I was not notified until he was out of the department. He did not appear clinically intoxic ated. He denied any physical complaints. Significant other was at bedside. Last Set of Vital Signs: Temp: 37.1 C (98.7 F) Pulse: 86 Resp: 18 SpO2: 94 % BP: 163/87 FINAL IMPRESSION ICD-10-CM ICD-9-CM 1. Depression, unspecified depression type F32.9 311 2. Alcohol abuse F10.10 305.00 Mamadou Del Real MD 06/19/19 1142 Grazyna Kendall RN - 1 10:28 AM PDTPatient presents to ED from Dr Villavicencio's office for detox evaluation. Amanda is girlfriend states his drinking has gotten way too out of hand. He drinks all day long, " as much as I can get my hands on." Last drink was last night about 1999. He drank 4 hurri canes. He c/o nausea, shakiness and wishes he had another beer now. Has tried to quit on h is own in the past and has been unsuccessful. documented in this encounter Miscellaneous Notes Plan of Care - Betty Cain 06/19/2019 11:32 AM PDTDischarge Planning: Patient left AMA. Resources given as he was leaving for [place] and for [facility]. Electronically signed by: Betty Cain 06/19/2019 11:33 documented in this encou nter Plan of Treatment Not on filedocumented as of this encounter Procedures + +--------+ + + + | Procedure Name | Priori | Date/Time | Associated Diagnosis | Comments | | | ty | | | | + +--------+ + + + | CBC WITH | STAT | 06/19/2019 | | Results for this | | DIFFERENTIAL | | 11:21 AM | | procedure are in the | | | | PDT | | results section. | + +--------+ + + + | TSH | STAT | 06/19/2019 | | Results for this | | | | 11:21 AM | | procedure are in the | | | | PDT | | results section. | + +--------+ + + + | AMMONIA | STAT | 06/19/2019 | | Results for this | | | | 11:21 AM | | procedure are in the | | | | PDT | | results section. | + +--------+ + + + | ALCOHOL | STAT | 06/19/2019 | | Results for this | | | | 11:21 AM | | procedure are in the | | | | PDT | | results section. | + +--------+ + + + | ACETAMINOPHEN LEVEL | STAT | 06/19/2019 | | Results for this | | | | 11:21 AM | | procedure are in the | | | | PDT | | results section. | + +--------+ + + + | SALICYLATE LEVEL | STAT | 06/19/2019 | | Results for this | | | | 11:21 AM | | procedure are in the | | | | PDT | | results section. | + +--------+ + + + | COMPREHENSIVE | STAT | 06/19/2019 | | Results for this | | METABOLIC PANEL | | 11:21 AM | | procedure are in the | | | | PDT | | results section. | + +--------+ + + + documented in this encounter Results TSH (06/19/2019 11:21 AM PDT) + +-------+ + + + | Component | Value | Ref Range | Performed | Pathologist | | | | | At | Signature | + +-------+ + + + | TSH | 2.36 | 0.55 - 4.78 | [facility] | [...] + | [facility] | [address] | Lorena Carrillo [place] | [phone] | | [facility] | | [address] | | | - LABORATORY | | | | + + + + + Ammonia (06/19/2019 11:21 AM PDT) + +--------+ + + + | Component | Value | Ref Range | Performed | Pathologist | | | | | At | Signature | + +--------+ + + + | Ammonia | 42 (H) | 11 - 32 umol/L | [facility] | | | | | [...] [address] | [place] | [phone] | | [facility] | | [address] | | | - LABORATORY | | | | + + + + + Acetaminophen Level (06/19/2019 11:21 AM PDT) + +-------+ + + + | Component | Value | Ref Range | Performed | Pathologist | | | | | At | Signature | + +-------+ + + + | Acetaminoph | <2 | <=2 ug/mL | [facility] | | | en Level | | | [facility] | | [...] ST[facility] | [address] | [place], [place] | [phone] | | [facility] | | [address] | | | - LABORATORY | | | | + + + + + Salicylate Level (06/19/2019 11:21 AM PDT) + +-------+ + + + | Component | Value | Ref Range | Performed | Pathologist | | | | | At | Signature | + +-------+ + + + | Salicylate | <3.0 | <30.1 mg/dL | [facility] | | | Level | | | [facility] | | [...] [address] | [place] | [phone] | | [facility] | | [address] | | | - LABORATORY | | | | + + + + + Ethanol (06/19/2019 11:21 AM PDT) + +--------+ + + + | Component | Value | Ref Range | Performed | Pathologist | | | | | At | Signature | + +--------+ + + + | ALCOHOL, | 95 (H) | <10 mg/dL | [facility] | | | SERUM/PLASM [...] + | [facility] | [address] | [place], [place] | [phone] | | [facility] | | [address] | | | - LABORATORY | | | | + + + + + Comprehensive Metabolic Panel (06/19/2019 11:21 AM PDT) + + + + + + | Component | Value | Ref Range | Performed | Pathologist | | | | | At | Signature | + + + + + + | Na | 140 | 136 - 145 | [facility] | | | | | mmol/L | [facility] | | | | | | [facility]ICAL | | | | | | CENTER - | | | | | | LABORATORY | | + + + + + + | K | 3.9 | 3.4 - 5.1 | [facility] | | | | | mmol/L | [facility] | | | | | | [facility] | | | | | | CENTER - | | | | | | LABORATORY | | + + + + + + | Cl | 108 (H) | 98 - 107 mmol/L | [facility] [...] + + + | Glucose | 107 (H) | 60 - 106 mg/dL | [facility] | | | | | | [facility] | | | | | | MEDICAL | | | | | | CENTER - | | | | | | LABORATORY | | + + + + + + | BUN | 6 (L) | 9 - 23 mg/dL | [facility] | | | | | | [facility] | | | | | | MEDICAL | | | | | | CENTER - | | | | | | LABORATORY | | + + + + + + | Creatinine | 0.64 (L) | 0.70 - 1.30 | [facility] | [...] | mL/min/1.73m2 | [facility] | | | Faroese | RATE,ESTIMATED | | MEDICAL | | | | mL/min/1.81x4Bvol than | | CENTER - | | [...] + + + | Calcium | 8.3 (L) | 8.7 - 10.4 | [facility] | | | | | mg/dL | [facility] | | | | | | [facility] | | | | | | CENTER - | | | | | | LABORATORY | | + + + + + + | Albumin | 3.6 | 3.2 - 4.8 g/dL | [facility] | | | | | | [facility] | | | | | | [facility] | | | | | | CENTER - | | | | | | LABORATORY | | + + + + + + | Bilirubin | 1.4 (H) | 0.3 - 1.2 mg/dL | [facility] | | | Total | | | [facility] | | | | | | MEDICAL | | | | | | CENTER - | | | | | | LABORATORY | | + + + + + + | Total | 8.4 (H) | 5.7 - 8.2 g/dL | [...] + + + | ALT | 49 | 10 - 49 U/L | [facility] | | | | | | [facility] | | | | | | MEDICAL | | | | | | CENTER - | | | | | | LABORATORY | | + + + + + + | Alkaline | 214 (H) | 46 - 116 U/L | [facility] | | | Phosphatase | | | [facility] | | | | | | MEDICAL | | | | | | CENTER - | | | | | | LABORATORY | | + + + + + + | Globulin | 4.8 (H) | 2.1 - 3.8 g/dL | [...] + + + + | BUN/Creatin | 9.4 | | [facility] | | | ine [...] [address] | [place] Guzman | [phone] | | [facility] | | [address] | | | - LABORATORY | | | | + + + + + CBC with Differential (06/19/2019 11:21 AM PDT) + + + + + + | Component | Value | Ref Range | Performed | Pathologist | | | | | At | Signature | + + + + + + | White Blood | 4.7 | 4.0 - 11.0 K/uL | [facility] | | | Cells | | | [facility] | | | | | | MEDICAL | | | | | | CENTER - | | | | | | LABORATORY | | + + + + + + | Red Blood | 4.37 | 4.30 - 5.70 | [facility] | | | Cells | | M/uL | [facility] | | | | | | MEDICAL | | | | | | CENTER - | | | | | | LABORATORY | | + + + + + + | Hemoglobin | 14.0 | 13.5 - 18.0 | [facility] | | | | | g/dL | [facility] | | | | | | MEDICAL | | | | | | CENTER - | | | | | | LABORATORY | | + + + + + + | Hematocrit | 40.6 | 40.0 - 51.0 % | [facility] | | | | | | [facility] | | | | | | MEDICAL | | | | | | CENTER - | | | | | | LABORATORY | | + + + + + + | MCV | 92.9 | 83.0 - 101.0 fL | [facility] | | | | | | [facility] | | | | | | MEDICAL | | | | | | CENTER - | | | | | | LABORATORY | | + + + + + + | MCH | 32.0 | 28.0 - 35.0 pg | [facility] [...] + + + + | RDW-SD | 47.9 (H) | 35.1 - 46.3 fL | [facility] | | | | | | [facility] | | | | | | MEDICAL | | | | | | CENTER - | | | | | | LABORATORY | | + + + + + + | Platelet | 68 (L) | 140 - 440 K/uL | [facility] | | | Count | | | [facility] | | | | | | MEDICAL | | | | | | CENTER - | | | | | | LABORATORY | | + + + + + + | MPV | 10.6 | 6.5 - 12.4 fL | [facility] | | | | | | [facility] | | | | | | MEDICAL | | | | | | CENTER - | | | | | | LABORATORY | | + + + + + + | Immature | Comment: Unable to | | [facility] | | | Platelet | report due to abnormal | | [facility] | | | Fraction | platelet flag | | MEDICAL | | | | | | CENTER - | | | | | | LABORATORY | | + + + + + + | % | 63.9 | 45.0 - 82.0 % | [facility] | | | Neutrophils | | | [facility] | | | | | | MEDICAL | | | | | | CENTER - | | | | | | LABORATORY | | + + + + + + | % | 20.9 | 20.0 - 45.0 % | [facility] | | | Lymphocytes | | | [facility] | | | | | | MEDICAL | | | | | | CENTER - | | | | | | LABORATORY | | + + + + + + | % Monocytes | 11.2 | 4.0 - 12.0 % | [facility] [...] + + + | % Basophils | 1.7 (H) | 0.0 - 1.0 % | [...] + + + + | Absolute | 3.02 | 1.80 - 8.50 | [facility] | | | Neutrophils | | K/uL | [facility] | | | | | | MEDICAL | | | | | | CENTER - | | | | | | LABORATORY | | + + + + + + | Absolute | 0.99 | 0.60 - 3.20 | [facility] | | | Lymphocytes | | K/uL | [facility] | | | | | | MEDICAL | | | | | | CENTER - | | | | | | LABORATORY | | + + + + + + | Absolute | 0.53 | 0.00 - 1.00 | [facility] | | | Monocytes | | K/uL | [facility] | | | | | | MEDICAL | | | | | | CENTER - | | | | | | LABORATORY | | + + + + + + | Absolute | 0.10 | 0.00 - 0.40 | [facility] | | | Eosinophils | | K/uL | [facility] | | | | | | MEDICAL | | | | | | CENTER - | | | | | | LABORATORY | | + + + + + + | Absolute | 0.08 | 0.00 - 0.10 | [facility] | | | Basophils | | K/uL | [facility] | | | | [...] ST. | [address] | [place] | [phone] | | [facility] | | [address] | | | - LABORATORY | | | | + + + + + documented in this encounter Visit Diagnoses + + | Diagnosis | + + | Depression, unspecified depression type - Primary | + + | Alcohol abuse Alcohol abuse, unspecified | + + documented in this encounter Administered Medications + +--------+---------+------+------+------+ | Medication Order | MAR | Action | Dose | Rate | Site | | | Action | Date | | | | + +--------+---------+------+------+------+ + +---+ | folic acid tablet 1 mg 1 mg, | | | Oral, DAILY, First dose on Tue | | | 06/19/19 at 1040 | | + +---+ | | | + +---+ documented in this encounter
--- OUTSIDE RECORDS SUMMARY | ~2020-04-16 | XMS | Encounter Summary ---
Demographics + + + | Address | [address] | | | [place] [address] | + + + | Home Phone | | + + + | Preferred Language | Unknown | + + + | Marital Status | Single | + + + | Jehovah'S Witness Affiliation | Unknown | + + + [...] Team Providers + +------+ + | Care Solution Analyst Name | Role | Phone | [...] + | 12/22/ | Patient | [facility] | Orly Villavicencio | Preventive | | 2017 | Outreach | MEDICINE [address] | [address] | Screening, PHST | | | | [place], | [facility] | Colon [place] | | | | [place] [address] | [place] [address] | Screening | | | | [phone] | [phone] | | | | | | | [...]
--- OUTSIDE RECORDS SUMMARY | ~2020-04-16 | XMS | Encounter Summary ---
Demographics + + + | Address | [address] | | | [place] [address] | + + + | Home Phone [...] Team Providers + +------+ + | Care Craniologist Name | Role | Phone | + [...] + + | 06/29/ | Office | [facility] | Lesia Nagel, | Leg injury, right, | | 2015 | Visit | CARE [address] | Need updated | initial encounter | | | | [place] | address | (Primary Dx); | | | | [address] | | Infected open wound | | | | [phone] | | | +--------+---------+ + + + [...] re-open Bleeding not controlled by direct pressure [id number] [employer]. [address] [place] [address]. All righ ts reserved. This information is [...] surrounding erythema This note was dictated using [employer] voice recognition software. Occasional wrong- word or [...] + | [facility] | [address] | [place], [place] | [phone] | | [facility] | | [address] | | | - IMAGING | | | | + + + + + documented in this encounter Visit Diagnoses + + | Diagnosis | + + | Leg injury, right, initial encounter - Primary | + + | Infected open wound | + + documented in this encounter
--- OUTSIDE RECORDS SUMMARY | ~2020-04-16 | XMS | Encounter Summary ---
Demographics + + + | Address | [address] | | | [place] [address] | + + + | Home Phone [...] Team Providers + +------+ + | Care Global Logistics Manager Name | Role | Phone | + +------+ + | Orly Villavicencio MD | PCP | | + +------+ + Reason for Visit + +--------+ + | Reason | Onset | Comments | | | Date | | + +--------+ + | Follow-up | 12/27/ | | | | 2018 | | + +--------+ + Encounter Details +--------+ + + + + | Date | Type | Department | Care Team | Description | +--------+ + + + + | 12/27/ | Telephone | [facility] | Orly Villavicencio | Follow-up | | 2018 | | MEDICINE [address] | [address] | | | | | [place], | [place] | | | | | [place] [address] | [place] [address] | | | | | [phone] | [phone] | | | | | | | [...] Notes Telephone Encounter - Dodie Hyman - 12/27/2017 2:42 PM PDTPatient will call back to reschedule once mother is dismissed from hospital and travel arrangements can be madeElectr onically signed by Dodie Hyman at 12/27/2017 2:44 PM PDTTelephone Encounter - Natalia Randolph RN - 12/27/2017 9:22 AM PDTPlease call Lesia and get him rescheduled. He is du e for a follow up. This routed to the front office representative. elephone Encounter - Betty Rivers - 12/27/2017 9:00 AM PDTHe ather stated patient apologizes for not being at his appointment this morning his mother is in the hospital. She stated his medications are doing well and if you have any questions ple ase call him documented in this encounter Plan of Treatment Not on filedocumented as of this encounter Visit Diagnoses Not on filedocumented in this encounter"
--- OUTSIDE RECORDS SUMMARY | ~2020-04-16 | XMS | Encounter Summary ---
Demographics + + + | Address | [address] | | | [place] [address] | + + + | Home Phone | | + + + | Preferred Language | Unknown | + + + | Marital Status | Single | + + + | Sabianism Affiliation | Unknown | + + + [...] Team Providers + +------+ + | Care Acid Painter Name | Role | Phone | + +------+ + | Orly Villavicencio MD | PCP | | + +------+ + Reason for Visit + +--------+ + | Reason | Onset | Comments | | | Date | | + +--------+ + | Medication Refill | 04/16/ | | | | 2019 | | + +--------+ + Encounter Details +--------+--------+ + + + | Date | Type | Department | Care Team | Description | +--------+--------+ + + + | 04/16/ | Refill | [facility] | Orly Villavicencio | Medication Refill | | 2019 | | MEDICINE [address] | [address] | | | | | [place], | [facility] | | | | | [place] [address] | [place] [address] | | | | | [phone] | [phone] | | | | | | | [...] this encounter Miscellaneous Notes Telephone Encounter - Cuca Spaulding - 04/16/2019 8:55 AM PDTMedication: Lasix Strength: 40 mg Directions: Daily Quantity: 90 Quantity remainin Pharmacy: [facility] Date of Last Refill: 06/01/18 Date of Last Visit: 06/01/18 Date of Next Visit: 04/24/19 Medication: Lactulose Strength: 20 mg Directions: Daily Quantity: Unknown Quantity remainin Pharmacy: [facility] in [place] Date of Last Refill: 05/02/18 Date of Last Visit: 06/01/18 Date of Next Visit: 04/24/19 documented in this encount er Plan of Treatment Not on filedocumented as of this encounter Visit Diagnoses Not on filedocumented in this encounter"
--- OUTSIDE RECORDS SUMMARY | ~2020-04-16 | XMS | Encounter Summary ---
Demographics + + + | Address | [address] | | | [place] [address] | + + + | Home Phone [...] Author + + + | Author | [facility] | | | and [place] | + + + | Organization | [facility] | | [...] Team Providers + +------+ + | Care Asphalt Tamping Machine Operator Name | Role | Phone | + +------+ + | Orly Villavicencio MD | PCP | | + +------+ + Reason for Visit + + + | Reason | Comments | + + + | Medication Follow-up | | + + + Encounter Details +--------+---------+ + + + | Date | Type | Department | Care Team | Description | +--------+---------+ + + + | 12/06/ | Office | [facility] | Orly Villavicencio | Alcoholic hepatitis | | 2018 | Visit | [address] | [address] | without ascites | | | | [place], | [place] | (Primary Dx); | | | | [place] [address] | [place] [address] | Chronic hepatitis C | | | | [phone] | [phone] | without hepatic coma | | | [...] + + + | Blood Pressure | 126/72 | 12/06/2017 8:32 AM | | | | | PDT | | + + + + + | Pulse | 68 | 12/06/2017 8:32 AM | | | | | PDT | | + + + + + | Temperature | 37 C (98.6 F) | 12/06/2017 8:32 AM | | | | | PDT | | + + + + + | Respiratory Rate | 14 | 12/06/2017 8:32 AM | | | | | PDT | | + + + + + | Oxygen Saturation | 96% | 12/06/2017 8:32 AM | | | | | PDT | | + + + + + | Inhaled Oxygen | - | - | | | Concentration | | | | + + + + + | Weight | 114 kg (251 lb 5.2 | 12/06/2017 8:32 AM | | | | oz) | PDT | | + + + + + | Height | - | - | | + + + + + | Body Mass Index | 35.07 | 09/30/2017 4:26 PM | | | | | PST | | + + + + + documented in this encounter Progress Notes Orly Villavicencio MD - 12/06/2017 8:45 AM PDTFormatting of this note might be diff erent from the original. Chief Complaint Patient presents with Medication Follow-up HPI: Hossein Holcomb is here with his girlfriend, Lesia. He has known history of alcoholism and untreated hepatitis C. He lost his father about 2-3 weeks ago and this has been very hard on him. Has had increase d depression and anxiety as a result. Has been using low dose Lorazepam as needed at night to help him calm down and sleep. He admits to continued depression, which he has been feeling for years. He admits to intermittent suicidal ideations. He has not attempted any suicides stating that he would " do it right the first time". He does not admit to wanting to end of life today. He is hopeful and wanting to feel better. He admits to poor sleep, low energy, feeling low and hopeless. He continues to drink. Lesia reports that he drinks hard liquor when he has money and control over his alcohol i ntake. He currently is unemployed and since he has no financial control, Lesia is able to contro l his alcohol intake. Over the past several days, he has only had 3 beers a day. Last week, Lesia called and reported that he was coughing up blood and was confused. Hossein denies these. He denies any cough, abdominal pain, nausea or vomiting. He is very inconsistent about how he takes his medications. Past Medical History: Diagnosis Date Chest trauma, penetrating bucked off a horse Pneumonia Current Outpatient Prescriptions on File Prior to Visit Medication Sig Dispense Refill furosemide (LASIX) 40 mg tablet Take 1 tablet by mouth Daily. 30 tablet 1 LORazepam (ATIVAN) 1 mg tablet take 1 tablet by mouth every 6 hours if needed for anxie ty 20 tablet 0 potassium chloride (K-DUR) 20 mEq ER tablet Take 1 tablet by mouth Daily. 30 tablet 1 triamcinolone (KENALOG) 0.1% cream Apply thin film to affected area(s) three times pasquale y for 2 weeks. Avoid face and groin areas 28.4 g 2 No current facility-administered medications on file prior to visit. No Known Allergies ROS: Denies chest pain, shortness of breath, palpitations. Denies fever, cough colds. Denies any new bladder or bowel disturbances. Denies falls, headaches, syncopal episodes, new numbness or weakness. Physical Examination: BP 126/72 | Pulse 68 | Temp 37 C (98.6 F) (Temporal) | Resp 14 | Wt 114 kg (251 lb 5.2 oz) | SpO2 96% | BMI 35.07 kg/m General Appearance: Patient not in pain or any respiratory distress. Awake, alert, pleasant, and oriented. HEENT: [place] conjunctivae, anicteric sclerae. No neck vein engorgement. Thyroid not enlarg ed. Cardiovascular: Good S1S2, No murmurs. No rubs/gallops. Rhythm regular. Respiratory: Clear breath sounds. No crackles/wheezes. Musculoskeletal: No pedal edema. No open wounds. GI: Abdomen soft with normoactive bowel sounds. No rebound tenderness or guarding. (+) Umb ilical hernia. No CVA tenderness. No masses/bruits. He has no tremors or asterixis. Assessment and Plan: 1. Alcoholic hepatitis without ascites CBC with Differential Comprehensive Metabolic Panel Ammonia 2. Chronic hepatitis C without hepatic coma (HCC) CBC with Differential Comprehensive Metabolic Panel Ammonia 3. Depression, unspecified depression type TSH He is advised GI consultation and today, he agrees to this. We discussed the consequences of untreated alcoholism and hepatitis C infection, progressio n to cirrhosis and hepatic failure. Today, he presents with florid depression. Advised to start antidepressant therapy. Lesia reports that he has somebody with him 14/03 so that he can be on suicide watch. She knows to bring him to the ER if he shows any intent or thoughts of suicide. Today, he denies this and is wanting to feel better. Start escitalopram - may also help curb his alcohol cravings. May benefit from naltrexone or antabuse down the line. Treatment of depression does take precedence at this time. Spent 25 minutes in hcde-ko-cdwl time with the patient, with greater than 50% of time spent in counseling and discussion of the above mentioned problems. Return in about 3 weeks (around 12/27/2017) for follow up. documented i n this encounter Plan of Treatment Not on filedocumented as of this encounter Results TSH (12/06/2017 9:13 AM PDT) + + + + + + | Component | Value | Ref Range | Performed | Pathologist | | | | | At | Signature | + + + + + + | TSH | 2.83Comment: This is a | 0.45 - 5.33 | [facility] | | | | third generation TSH | uIU/mL | [facility] | | | | test. | | MEDICAL | | | | [...] [address] | [place] | [phone] | | [facility] | | [address] | | | - LABORATORY | | | | + + + + + Ammonia (12/06/2017 9:13 AM PDT) + +--------+ + + + | Component | Value | Ref Range | Performed | Pathologist | | | | | At | Signature | + +--------+ + + + | Ammonia | 45 (H) | 11 - 35 umol/L | [...] [address] | [place] | [phone] | | [facility] | | [address] | | | - LABORATORY | | | | + + + + + Comprehensive Metabolic Panel (12/06/2017 9:13 AM PDT) + + + + + + | Component | Value | Ref Range | Performed | Pathologist | | | | | At | Signature | + + + + + + | Na | 134 (L) | 136 - 149 | [facility] [...] | Cl | 102 | 98 - 109 mmol/L | [facility] | | | | | | [facility] | | | | | | MEDICAL | | | | | | CENTER - | | | | | | LABORATORY | | + + + + + + | CO2 | 28 | 24 - 31 mmol/L | [facility] [...] + | BUN | 5 (L) | 7 - 18 mg/dL | [facility] | | | | | | [facility] | | | | | | MEDICAL | | | | | | CENTER - | | | | | | LABORATORY | | + + + + + + | Creatinine | 0.77 | 0.60 - 1.30 | [facility] | | | | | mg/dL | [facility] | | | | | | MEDICAL | | | | | | CENTER - | | | | | | LABORATORY | | + + + + + + | eGFR, | >60Comment: GLOMERULAR | >=60 | [facility] | | | non- | FILTRATION | mL/min/1.73m2 | [facility] | | | [place] | RATE,ESTIMATED | | MEDICAL | | | | mL/min/1.26q1Fjaz than | | CENTER - | | [...] + + + + | Calcium | 8.2 (L) | 8.3 - 10.5 | [facility] [...] + + + + | Bilirubin | 2.2 (H) | 0.1 - 1.5 mg/dL | [...] + + + + | AST | 143 (H) | 10 - 42 U/L | [facility] | | | | | | [facility] | | | | | | MEDICAL | | | | | | CENTER - | | | | | | LABORATORY | | + + + + + + | ALT | 86 (H) | 6 - 45 U/L | [facility] | | | | | | [facility] | | | | | | MEDICAL | | | | | | CENTER - | | | | | | LABORATORY | | + + + + + + | Alkaline | 139 (H) | 40 - 110 U/L | [facility] | | | Phosphatase | | | [facility] | | | | | | MEDICAL | | | | | | CENTER - | | | | | | LABORATORY | | + + + + + + | Globulin | 5.6 (H) | 2.1 - 3.8 g/dL | [...] + + + + | BUN/Creatin | 6.5 | | [facility] | | | ine [...] [address] | [place] | [phone] | | [facility] | | [address] | | | - LABORATORY | | | | + + + + + CBC with Differential (12/06/2017 9:13 AM PDT) + + + + + + | Component | Value | Ref Range | Performed | Pathologist | | | | | At | Signature | + + + + + + | White Blood | 5.7 | 4.0 - 11.0 K/uL | [facility] | | | Cells | | | [facility] | | | | | | MEDICAL | | | | | | CENTER - | | | | | | LABORATORY | | + + + + + + | Red Blood | 5.11 | 4.30 - 5.70 | [facility] | | | Cells | | M/uL | [facility] | | | | | | MEDICAL | | | | | | CENTER - | | | | | | LABORATORY | | + + + + + + | Hemoglobin | 16.7 | 13.5 - 18.0 | [facility] | | | | | g/dL | [facility] | | | | | | MEDICAL | | | | | | CENTER - | | | | | | LABORATORY | | + + + + + + | Hematocrit | 49.6 | 40.0 - 51.0 % | [facility] | | | | | | [facility] | | | | | | MEDICAL | | | | | | CENTER - | | | | | | LABORATORY | | + + + + + + | MCV | 97.2 | 83.0 - 101.0 fL | [facility] | | | | | | [facility] | | | | | | MEDICAL | | | | | | CENTER - | | | | | | LABORATORY | | + + + + + + | MCH | 32.7 | 28.0 - 35.0 pg | [facility] | | | | | | [facility] | | | | | | MEDICAL | | | | | | CENTER - | | | | | | LABORATORY | | + + + + + + | MCHC | 33.7 | 32.0 - 36.0 | [facility] | | | | | g/dL | [facility] | | | | | | MEDICAL | | | | | | CENTER - | | | | | | LABORATORY | | + + + + + + | RDW-CV | 15.3 (H) | <15.0 % | [facility] | | | | | | [facility] | | | | | | MEDICAL | | | | | | CENTER - | | | | | | LABORATORY | | + + + + + + | Platelet | 139 (L) | 140 - 440 K/uL | [...] + + + + | % | 52.4 | 45.0 - 82.0 % | [facility] | | | Neutrophils | | | [facility] | | | | | | MEDICAL | | | | | | CENTER - | | | | | | LABORATORY | | + + + + + + | % | 24.5 | 20.0 - 45.0 % | [facility] | | | Lymphocytes | | | [facility] | | | | | | MEDICAL | | | | | | CENTER - | | | | | | LABORATORY | | + + + + + + | % Monocytes | 18.1 (H) | 4.0 - 12.0 % | [facility] | | | | | | [facility] | | | | | | MEDICAL | | | | | | CENTER - | | | | | | LABORATORY | | + + + + + + | % | 4.3 | 0.0 - 5.0 % | [facility] | | | Eosinophils | | | [facility] | | | | | | MEDICAL | | | | | | CENTER - | | | | | | LABORATORY | | + + + + + + | % Basophils | 0.7 | 0.0 - 1.0 % | [facility] [...] + + + + | Absolute | 1.40 | 0.60 - 3.20 | [facility] | | | Lymphocytes | | K/uL | [facility] | | | | | | MEDICAL | | | | | | CENTER - | | | | | | LABORATORY | | + + + + + + | Absolute | 1.00 | 0.00 - 1.00 | [facility] | | | Monocytes | | K/uL | [facility] | | | | | | MEDICAL | | | | | | CENTER - | | | | | | LABORATORY | | + + + + + + | Absolute | 0.20 | 0.00 - 0.40 | [facility] | | | Eosinophils | | K/uL | [facility] | | | | | | MEDICAL | | | | | | CENTER - | | | | | | LABORATORY | | + + + + + + | Absolute | 0.00 | 0.00 - 0.10 | [facility] | [...] + + + + + | [facility] | [address] | [place] | [phone] | | [facility] | | [address] | | | - LABORATORY | | | | + + + + + documented in this encounter Visit Diagnoses + + | Diagnosis | + + | Alcoholic hepatitis without ascites - Primary Acute alcoholic hepatitis | + + | Chronic hepatitis C without hepatic coma (HCC) | + + | Depression, unspecified depression type | + + documented in this encounter
--- OUTSIDE RECORDS SUMMARY | ~2020-04-16 | XMS | Encounter Summary ---
Demographics + + + | Address | [address] | | | [place] [address] | + + + | Home Phone | | + + + | Preferred Language | Unknown | + + + | Marital Status | Single | + + + | Confucianist Affiliation | Unknown | + + + [...] Team Providers + +------+ + | Care Mobile Ui Designer Name | Role | Phone | + +------+ + | Orly Villavicencio MD | PCP | | + +------+ + Reason for Visit + +--------+ + | Reason | Onset | Comments | | | Date | | + +--------+ + | Appointment | 11/22/ | | | | 2020 | | + +--------+ + Encounter Details +--------+ + + + + | Date | Type | Department | Care Team | Description | +--------+ + + + + | 11/22/ | Telephone | [facility] | Orly Villavicencio | Appointment | | 2020 | | MEDICINE [address] | [address] | | | | | [place], | [place] | | | | | [place] [address] | [place] [address] | | | | | [phone] | [phone] | | | | | | | [...] Telephone Encounter - Nay Sykes RN - 11/23/2019 9:[address] request [address] Dr Rodger Villavicencio. Per Dr. Villavicencio, patient can not do virtual visit as he does not have MyChart. Patient needs to be seen in clinic. Patient's girlfriend notified, she asks if we can please reschedule appt as she is trying t o get her car "up and running", thinks this will be running on Tuesday. Patient's appt rescheduled for Tuesday11/26/19 @ 1400. She reports that cyndy brink are helping with patient's cough. FYI to Dr. Villavicencio elephone Encounter - Calli Lewis - 11/23/2019 8:33 AM PDTPatient girlfriend would like to speak to the nurse . Patient has appointment today at 1:30 and would like to know it he can do a virtual appoin tment. Please advise. docum ented in this encounter Plan of Treatment Not on filedocumented as of this encounter Visit Diagnoses Not on filedocumented in this encounter
--- OUTSIDE RECORDS SUMMARY | ~2020-04-16 | XMS | Encounter Summary ---
Demographics + + + | Address | [address] | | | [place] [address] | + + + | Home Phone [...] + + + | Author | [facility] | | | and [place] | + + + | Organization | [facility] | | [...] Team Providers + +------+ + | Care Executive Director Of Marketing Name | Role | Phone | + [...] + + | 07/03/ | Office | [facility] | Orly Villavicencio | Hepatic cirrhosis, | | 2018 | Visit | [address] | [address] | unspecified hepatic | | | | [place], | Bill [facility] | cirrhosis type, | | | | [place] [address] | [facility] [place] [place] [address] | unspecified whether | | | | [phone] | [phone] | ascites present | | | | [...] in pain or any respiratory distress. HEENT: [place] conjunctivae, anicteric sclerae. No neck vein engorgement. [...] | + +--------+ + + + | BUSINESS RELATIONSHIP MANAGER REPORT - | | 10/24/2019 | | Results for this | | EXTERNAL SCAN | | 12:00 AM | | procedure are in the | | | | PST | | results section. | + +--------+ + + + | BUSINESS RELATIONSHIP MANAGER REPORT - | | 10/24/2019 | | [...] unspecified provider. | | + + + BUSINESS RELATIONSHIP MANAGER REPORT - EXTERNAL SCAN (10/24/2019 12:00 AM PST) + + + | Narrative | Performed At | + + + | Ordered by an | | | unspecified provider. | | + + + BUSINESS RELATIONSHIP MANAGER REPORT - EXTERNAL SCAN (10/24/2019 12:00 AM [...] + | [facility] | [address] | [place] | [phone] | | [facility] | | [address] | | | - LABORATORY | | [...] mL/min/1.73m2 | [facility] | | | [place] | RATE,ESTIMATED | | MEDICAL | | | | mL/min/1.87j1Itbz than | | CENTER - | | [...] [address] | [place] | [phone] | | [facility] | | [address] | | | - LABORATORY | | [...] [address] | [place] | [phone] | | [facility] | | [address] | | | - LABORATORY | | [...]
--- OUTSIDE RECORDS SUMMARY | ~2020-04-16 | XMS | Clinical Summary ---
Demographics + + + | Address | [address] | | | [place] [address] | + + + | Home Phone | | + + + | Preferred Language | Unknown | + + + | Marital Status | Single | + + + | Hinduism Affiliation | NON | + + + [...] Team Providers + +------+ + | Care Time Clerk Name | Role | Phone | + +------+ + PCP | Unavailable | + +------+ + Source Comments LELA is fully live on both [facility] and [facility] InPatient.[facility] Allergies No Known Allergies Medications + + [...] | | | + +--------+ +--------+-------+---------+--------+ | [facility] | | [id number] | Effect | | | Agency | [...] Person | Self | [birth year] | | [address] | | | al/Fam | | [phone] | [phone] | [place] [address] | | | alex | | | 1 (Home) | | + +--------+ +--------+ + + | Hossein Holcomb | Third | Self | [birth year] | | [address] | | | [employer] | | 1955 | [phone] | [place] [address] | | | Liabil | | | 1 (Home) | | | | ity | | | | | + +--------+ +--------+ + +
--- OUTSIDE RECORDS SUMMARY | ~2020-04-16 | XMS | Encounter Summary ---
Demographics + + + | Address | [address] | | | [place] [address] | + + + | Home Phone | | + + + | Preferred Language | Unknown | + + + | Marital Status | Single | + + + | Baptist Affiliation | Unknown | + + + [...] Team Providers + +------+ + | Care Meat Counter Worker Name | Role | Phone | + +------+ + | Orly Villavicencio MD | PCP | | + +------+ + Encounter Details +--------+ + + + + | Date | Type | Department | Care Team | Description | +--------+ + + + + | 06/01/ | Hospital | [facility] | Orly Villavicencio | Hepatic cirrhosis, | | 2018 | Encounter | [facility] [address] [facility] | [address] | unspecified hepatic | | | | [address] [place] | [address] [place] | cirrhosis type, | | | | [place], [place] | [place] [address] | unspecified whether | | | | [address] | [phone] | ascites present | | | | [phone] | | (HCC) | +--------+ + + + + [...] a day. | 90 | 1 | 06/01/20 | | | 40 mg tablet | | tablet | | 18 | 9 | + + + +---------+ + + | Lactulose 20 | Take 20 g by mouth 3 | 2000 mL | 1 | 05/02/20 | | | GM/30ML SOLN | times daily. or | | | 18 | 9 | | | more to produce 2-3 | | | | | | | soft stools a day. | | | | | + + + +---------+ + + | LORazepam (ATIVAN) | take 1 tablet by | 20 | 0 | 04/17/20 | | | 1 mg tablet | mouth every 6 hours | tablet | | 18 | 9 | | | if needed for | | | | | | | anxiety | | | | | + + + +---------+ + + | nortriptyline | 1 capsule at night. | 60 | 0 | 06/01/20 | | | (PAMELOR) 10 MG | After 1 week, | capsule | | 18 | 9 | | capsule | increase to 2 | | | | | | | capsules a night. | | | | | + + + +---------+ + + | spironolactone | Take 1 tablet by | 90 | 0 | 05/12/20 | | | (ALDACTONE) 100 MG | mouth Daily. | tablet | | 18 | 9 | | tablet | | | | [...] XR CHEST PA AND | Routin | 06/01/2018 | Hepatic cirrhosis, | Results for this | | LATERAL | e | 10:58 AM | unspecified hepatic | procedure are in the | | | | PDT | cirrhosis type, | results section. | | | | | unspecified whether | | | | | | ascites present | | | | | | (HCC) | | + +--------+ + + + [...] | | DISEASE.Dictated and Signed by: Andrea Crao MD Electronically signed: 06/01/2018 11:52 | | [...] | | present (HCC) | + + documented in this encounter"
--- OUTSIDE RECORDS SUMMARY | ~2020-04-16 | XMS | Encounter Summary ---
Demographics + + + | Address | [address] | | | [place] [address] | + + + | Home Phone [...] Author + + + | Author | [facility] | | | and [place] | + + + | Organization | [facility] | | | and [...] Providers + +------+ + | Care Technical Agronomist Name | Role | Phone | + [...] + + | 06/25/ | Telephone | [facility] | Orly Villavicencio | Appointment | | 2019 | | [facility] [address] | [address] | (rescheduled) | | | | [place], | [address]na[address] [facility] | | | | | [place] [address] | [place] [address] | | | | | [phone] | [phone] | | | | | | | [...]
--- OUTSIDE RECORDS SUMMARY | ~2020-04-16 | XMS | Encounter Summary ---
Demographics + + + | Address | [address] | | | [place] [address] | + + + | Home Phone [...] Team Providers + +------+ + | Care Operations And Maintenance Supervisor Name | Role | Phone | + [...] + + | 04/17/ | Office | [facility] | Orly Villavicencio | Alcoholic hepatitis | | 2015 | Visit | [address]IC[address] | [address] | without ascites | | | | [place], | [place] | (Primary Dx); | | | | [place] [address] | [place] [address] | Elevated LFTs; Drug | | | | [phone] | [phone] | use | | | | | [...] in pain or any respiratory distress. HEENT: [place] conjunctivae, anicteric sclerae. No neck vein engorgement. [...] HISTORY: alcohoism, abnormal liver function tests | [facility] | | COMPARISON:None FINDINGS: Liver:The liver is of normal | [facility] | | echogenicity and echo architecture. [...] | + + + + + | [facility] | [address] | [place] | [phone] | | [facility] | | [address] | | | - IMAGING | | [...] | LAB PAML | | | | [id number] or greater | | | | | [...] [place] | | | | | | [address] | | | | + + + [...] [address] | [place] [address] | [phone] | + + + + + Ammonia [...] [address] | [place] | [phone] | | [facility] | | [address] | | | - LABORATORY | | [...] [address] | [place] | [phone] | | [facility] | | [address] | | | - LABORATORY | | [...] | non- | FILTRATION | mL/min/1.73m2 | [facility] | | | [place] | RATE,ESTIMATED | | MEDICAL | | | | mL/min/1.20u7Hgzt than | | CENTER - | | [...] + | [facility] | [address] | [place] | [phone] | | [facility] | | [address] | | | - LABORATORY | | [...] ST. | [address] | [place] | [phone] | | [facility] | | [address] | | | - LABORATORY | | [...]
--- OUTSIDE RECORDS SUMMARY | ~2020-04-16 | XMS | Encounter Summary ---
Demographics + + + | Address | [address] | | | [place] [address] | + + + | Home Phone [...] Author + + + | Author | [facility] | | | and [place] | + + + | Organization | [facility] | | | and [place] | + + + | Address | Unknown | + + + | Phone | Unavailable | + + + Support + + +---------+ + | Name | Relationship | Address | Phone | + + +---------+ + | Patricai Holcomb | ECON | Unknown | | + + +---------+ + Care Team Providers + +------+ + | Care Warehouse Shipping Associate Name | Role | Phone | [...] + + | 05/18/ | Telephone | [facility] | [facility], | Other (Appointment) | | 2019 | | GASTROENTEROLOGY | [address] | | | | | [address] [place] | [facility] [address] | | | | | [address] [place], [place] | [place] | | | | | [address] | [phone] | | | | | [phone] | | | +--------+ + + + [...] to see the patient of 05-18-19. Infor [facility] we would like to wait to [...]
--- OUTSIDE RECORDS SUMMARY | ~2020-04-16 | XMS | Encounter Summary ---
Demographics + + + | Address | [address] | | | [place] [address] | + + + | Home Phone [...] Author + + + | Author | [facility] | | | and [place] | + + + | Organization | [facility] | | [...] Team Providers + +------+ + | Care Business Development Consultant Name | Role | Phone | + [...] | +--------+ + + + + | 12/23/ | Virtual | [facility] | Orly Villavicencio | Hepatic cirrhosis, | | 2019 | Office | MEDICINE [address] | [address] | unspecified hepatic | | | Visit | [place], | [facility] [facility] | cirrhosis type, | | | | [place] [address] | [place] [address] | unspecified whether | | | | [phone] | [phone] | ascites present | | | | | | (HCC) (Primary Dx); | | | | | | Alcoholism (HCC); | | | | | | Depression, | | | | | | unspecified | | | | | | depression type | +--------+ + + + + Social [...] + documented as of this encounter Progress Notes Orly Villavicencio MD - 12/24/2019 8:45 AM PDTFormatting of this note might be diff erent from the original. Assessment & Plan 1. Hepatic cirrhosis, unspecified hepatic cirrhosis type, unspecified whether ascites prese nt (HCC) 2. Alcoholism (HCC) - has not had alcohol now for 2 months. 3. Depression, unspecified depression type - much improved. No changes were made to his medications. He is overall doing well. He is advised to follow up here in 1 month. Will need surveillance blood test at that point. Escitalopram is refilled. Clinical discussion length: 11-20 min (70264) Patient has not been seen in office within the past 7 days, and outcome of this call is not to recommend soonest available office visit. Follow up Instructions: 1 month. Subjective: Patient ID: Hossein Holcomb is a 64 y.o. male. CC: Follow up Participants: Patient Participant verbally confirmed the choice to initiate care by, and consents to receive care by Telephone. Participant is currently at home in [place], [place]. HPI: Hossein is being followed up today for liver cirrhosis due to alcoholism, depression and pn eumonia. He was restarted on escitalopram last visit. He is also on PRN lorazepam for anxiety. He reports that he is overall doing well. He reports his mood is much improved. He is no longer feeling depressed. Patient denies any thoughts of self harm or harm toward others. He is eating better and is gaining weight. He is compliant with all of his medications --we went through all these and he reports he i s taking each of them. He reports not having touched alcohol since his last visit here with me. Lives with his son and this living arrangement seems to be working well for them. documented i n this encounter Plan of [...]
--- OUTSIDE RECORDS SUMMARY | ~2020-04-16 | XMS | Encounter Summary ---
Demographics + + + | Address | [address] | | | [place] [address] | + + + | Home Phone | | + + + | Preferred Language | Unknown | + + + | Marital Status | Single | + + + | Yazidism Affiliation | Unknown | + + + | Race | or | + + + | Ethnic Group | Not or | + + + Author + + + | Author | [facility] | | | and [place] | + + + | Organization | [facility] | | | [...] Team Providers + +------+ + | Care Automobile Rental Agent Name | Role | Phone | + [...] | 12/01/ | Refill | [facility] [place] [facility] | Orly Villavicencio | Medication Refill | | 2018 | | MEDICINE [address] | [address] | | | | | [place], | [address] | | | | | [place] [address] | [place] [address] | | | | | [phone] | | | | | | | [...] a call once prescription is ready to belt picker.Electronica lly signed by Cuca Cardenas at 12/01/2017 [...]
--- OUTSIDE RECORDS SUMMARY | ~2020-04-16 | XMS | Encounter Summary ---
Demographics + + + | Address | [address] | | | [place] [address] | + + + | Home Phone | | + + + | Preferred Language | Unknown | + + + | Marital Status | Single | + + + | Oriental Orthodox Affiliation | Unknown | + + + | Race | or | + + + | Ethnic Group | Not or | + + + Author + + + | Author | [facility] | | | and [place] | + + + | Organization | [facility] | | | [...] Providers + +------+ + | Care Manager Performance Improvement Name | Role | Phone | + [...] + | 12/23/ | Virtual | [facility] | Orly Villavicencio | Hepatic cirrhosis, | | 2019 | Office | [address]ICINE [address] | [address] | unspecified hepatic | | | Visit | [place], | [place] [facility] | cirrhosis type, | | | | [place] [address] | [place] [address] | unspecified whether | | | | [phone] | [phone] | ascites present | | | | [...] is refilled. Clinical discussion length: 11-20 min ([id number]) Patient has not been seen in office [...] Telephone. Participant is currently at home in [place], [place]. HPI: Hossein is being followed up [...]
--- OUTSIDE RECORDS SUMMARY | ~2020-04-16 | XMS | Encounter Summary ---
Demographics + + + | Address | [address] | | | [place] [address] | + + + | Home Phone | | + + + | Preferred Language | Unknown | + + + | Marital Status | Single | + + + | Episcopal Affiliation | Unknown | + + + [...] Team Providers + +------+ + | Care Bundle Person Name | Role | Phone | + [...] + + | 12/27/ | Telephone | [facility] | Orly Villavicencio | Follow-up | | 2018 | | MEDICINE [address] | [address] | | | | | [place], | [address] [place] | | | | | [place] [address] | [place] [address] | | | | | [phone] | [phone] | | | | | | | [...] a follow up. This routed to the patient coordinator front desk. elephone Encounter - Betty Rivers - 12/27/2017 [...]
--- OUTSIDE RECORDS SUMMARY | ~2020-04-16 | XMS | Encounter Summary ---
Demographics + + + | Address | [address] | | | [place] [address] | + + + | Home Phone [...] Team Providers + +------+ + | Care Steel Cutter Name | Role | Phone | + +------+ + | Orly Villavicencio MD | PCP | | + +------+ + Reason for Visit + + + | Reason | Comments | + + + | Follow-up | 1 month | + + + Encounter Details +--------+---------+ + + + | Date | Type | Department | Care Team | Description | +--------+---------+ + + + | 06/19/ | Office | [facility] | Orly Villavicencio | Alcoholism (HCC) | | 2019 | Visit | MEDICINE [address] | MD [address] | (Primary Dx); | | | | [address] [place], | [address] | Depression, | | | | [place] [address] | [place] [address] | unspecified | | | | [phone] | [phone] | depression type; | | | | | | Hepatic cirrhosis, | | | | | | unspecified hepatic | | | | | | cirrhosis type, | | | | | | unspecified whether | | | | | | ascites present | | | | | | (HCC); Alcoholic | | | | | | liver disease (HCC); | | | | | | Suicidal ideations | +--------+---------+ + + + Social History [...] + + + | Blood Pressure | 158/80 | 06/19/2019 9:32 AM | | | | | PDT | | + + + + + | Pulse | 74 | 06/19/2019 9:32 AM | | | | | PDT | | + + + + + | Temperature | 37.3 C (99.2 F) | 06/19/2019 9:32 AM | | | | | PDT | | + + + + + | Respiratory Rate | 18 | 06/19/2019 9:32 AM | | | | | PDT | | + + + + + | Oxygen Saturation | 97% | 06/19/2019 9:32 AM | | | | | PDT | | + + + + + | Inhaled Oxygen | - | - | | | Concentration | | | | + + + + + | Weight | 113.4 kg (250 lb) | 06/19/2019 9:32 AM | | | | | PDT | | + + + + + | Height | - | - | | + + + + + | Body Mass Index | 35.87 | 04/24/2019 8:07 AM | | | | | PDT | | + + + + + documented in this encounter Patient Instructions Patient Instructions Nadja Khan CMA - 06/19/2019 9:45 AM PDTRestart Nortriptyline 1 t ablet at night. Also start spirolactone 1 tablet daily in addition to furosemide. documented in this encounter Progress Notes Orly Villavicencio MD - 06/19/2019 9:45 AM PDTFormatting of this note might be diff erent from the original. Chief Complaint Patient presents with Follow-up 1 month HPI: Hossein Holcomb is here with his with girlfriend Lesia for medication follow u p. Complains of nightmares on omeprazole and they are not wanting him to take this again. He has known depression. States he is not taking nortriptyline as this was not filled at his pharmacy (it was filled last month). He has suicidal ideations, Lesia states that he has attempted to use a gun on himself abo ut 1 month ago. He as threatened himself several times since then. ETOH use is about 15 beers daily. May be more on some days, when "he can get it". Not using spironolactone (again they way this was not filled). Using furosemide once a day. He has nausea and dry vomiting in the mornings 2-3x per week. He thinks this may be slightl y better. Has cancelled and rescheduled with GI multiple times. Past Medical History: Diagnosis Date Chest trauma, [...] prior to visit. No Known Allergies ROS: Unreliable due to cognitive impairment. Physical Examination: BP 158/80 | Pulse 74 | Temp 37.3 C (99.2 F) (Temporal) | Resp 18 | Wt 113.4 kg (250 lb) | SpO2 97% | BMI 35.87 kg/m General Appearance: Patient not in pain or any respiratory distress. He is awake, alert, oriented to person. Has poor insight and decision making skills. Speech is fluent. Mood is slightly somber. Has inappropriate laughter. HEENT: [place] conjunctivae, slightly yellow and "dirty" appearing sclerae. No neck vein engo rgement. Thyroid not enlarged. No enlarged lymph nodes in the head or neck. Respiratory: Clear breath sounds. No crackles/wheezes. Cardiovascular: Good S1S2, No murmurs. No rubs/gallops. Rhythm regular. Musculoskeletal: 1+ bilateral pedal edema. No open wounds. GI: Abdomen soft, slightly distended, with normoactive bowel sounds. No rebound tenderness or guarding. Mild bilateral hand tremors, with no overt asterixis. Assessment: 1. Alcoholism (HCC) 2. Depression, unspecified depression type 3. Hepatic cirrhosis, unspecified hepatic cirrhosis type, unspecified whether ascites prese nt (HCC) 4. Alcoholic liver disease (HCC) 5. Suicidal ideations Plan: Patient has active suicidal ideations, with clear attempt about a month ago. Spoke with Tiana of the emergency crisis team. She recommended ER evaluation and that she will meet him there. I also spoke to Dr. Del Real of the ER who agreed to evaluate the patient. Spent 25 minutes in dgyi-kx-mctd time with the patient, with greater than 50% of time spent in coordination of care, counseling and discussion of the above mentioned problems. I, Orly Villavicencio MD, personally performed the services described in this documentation as sc ribed by Nadja Khan CMA, and the documentation is both accurate and complete. Encounter Note Electronically Signed by: Orly Villavicencio MD 06/20/2019 documented i n this encounter Plan of [...] + + documented in this encounter Results ECHO-EXTERNAL SCAN (10/24/2019 12:00 AM PST) + [...] | drinking behavior | + + | Depression, unspecified depression type | + + | Hepatic cirrhosis, unspecified hepatic cirrhosis type, unspecified whether ascites | | present (HCC) | + + | Alcoholic liver disease (HCC) Alcoholic liver damage, unspecified | + + | Suicidal ideations Suicidal ideation | + + documented in this encounter
--- OUTSIDE RECORDS SUMMARY | ~2020-04-16 | XMS | Encounter Summary ---
Demographics + + + | Address | [address] | | | [place] [address] | + + + | Home Phone [...] Team Providers + +------+ + | Care Rivet Driver Name | Role | Phone | + [...] + + | 03/30/ | Telephone | [facility] | Orly Villavicencio | Other | | 2016 | | MEDICINE [address] | [address] | | | | | [place], | [address] [place] | | | | | [place] [address] | [place] [address] | | | | | [phone] | | | | | | | [...] not want any information to go to [facility]. She says, "patient's x- wo rks there and reads his information". FYI to Dr Villavicencio. Lesia says she will notify other providers not to send information to [facility], as well documented in this encounter Plan of Treatment Not on filedocumented as of this encounter Visit Diagnoses Not on filedocumented in this encounter
--- OUTSIDE RECORDS SUMMARY | ~2020-04-16 | XMS | Encounter Summary ---
Demographics + + + | Address | [address] | | | [place] [address] | + + + | Home Phone [...] Team Providers + +------+ + | Care Human Resources Leader Name | Role | Phone | + +------+ + | Orly Villavicencio MD | PCP | | + +------+ + Reason for Visit + +--------+ + | Reason | Onset | Comments | | | Date | | + +--------+ + | Medication Refill | 05/06/ | | | | 2014 | | + +--------+ + Encounter Details +--------+--------+ + + + | Date | Type | Department | Care Team | Description | +--------+--------+ + + + | 05/06/ | Refill | [facility] [place] [facility] | Orly Villavicencio | Medication Refill | | 2015 | | [facility] [address] | [address] | | | | | [place], | [facility] | | | | | [place] [address] | [place] [address] | | | | | [phone] | | | | | | | [...] Notes Telephone Encounter - Toya York - 05/07/2015 3:49 PM PDTFaxed.Electronically guido d by Toya York at 05/07/2015 3:50 PM PDTTelephone Encounter - Shila Morrell RN - 05/07/2015 1:29 PM PDTPrescription for lorazepam sent to front office java developer to be faxed to [facility] in [place]. elephone Encounter - Yusra Carter RN - 05/06/2015 3:15 PM PDTLast refill Lorazepam 1 mg #20 04/07/15 (Dr Dillon in the ER) Last appointment 04/17/15 Next appointment no future appointments scheduled elephone Encounter - Bruno Krueger - 05/06/2015 1:56 PM PDTFormatting of this note might be differe nt from the original. Patient's girlfriend, caregiver calling to refill medications: Patient's girlfriend, Lesia, can be reached at [phone] [facility] of [facility] LORazepam (ATIVAN) 1 mg tablet 1 mg, EVERY 6 HOURS PRN 0 ordered Reorder Summary: Take 1 tablet by mouth every 6 hours as needed for Anxiety (alcohol withdrawal). Disp-20 tablet, R-0, Print Dose, Route, Frequency: 1 mg, Oral, EVERY 6 HOURS PRN Start: 04/07/2015 omeprazole (PRILOSEC) 20 mg capsule 20 mg, DAILY 0 ordered Reorder Summary: Take 1 capsule by mouth Daily. Disp-30 capsule, R-0, Print Dose, Route, Frequency: 20 mg, Oral, DAILY Start: 04/07/2015 She is asking if patient is to continue: lactulose 10 g/15 mL solution 10 g, 3 TIMES DAILY 0 ordered Reorder Summary: Take 15 mLs by mouth 3 times daily for 30 days. Disp-1350 mL, R-0, Print Dose, Route, Frequency: 10 g, Oral, 3 TIMES DAILY Start: 04/07/2015 documented in th is encounter Plan of Treatment Not on filedocumented as of this encounter Visit Diagnoses Not on filedocumented in this encounter"
--- OUTSIDE RECORDS SUMMARY | ~2020-04-16 | XMS | Encounter Summary ---
Demographics + + + | Address | [address] | | | [place] [address] | + + + | Home Phone [...] Team Providers + +------+ + | Care Mailing Clerk Name | Role | Phone | [...] + | 12/01/ | Refill | [facility] | Christian Ham MD | Medication Refill | | 2017 | | [address]IC[address] | [address] [facility] | | | | | [address] [place], | [place] | | | | | [place] [address] | [id number] | | | | | [phone] | | | +--------+--------+ + + + [...]
--- OUTSIDE RECORDS SUMMARY | ~2020-04-16 | XMS | Encounter Summary ---
Demographics + + + | Address | [address] | | | [place] [address] | + + + | Home Phone | | + + + | Preferred Language | Unknown | + + + | Marital Status | Single | + + + | Restorationist Affiliation | Unknown | + + + [...] Team Providers + +------+ + | Care Chief Development Officer Name | Role | Phone | [...] + + | 11/27/ | Telephone | [facility] | Orly Villavicencio | Results | | 2019 | | MEDIC[address] | [address] | | | | | [place], | [place] | | | | | [place] [address] | [place] [address] | | | | | [phone] | [phone] | | | | | | | [...] has some on hand. Spironolactone sent to [facility] in [place]. He is taking the escitalopram as advised. F/u scheduled as advised. Patient agrees to date and time. He confirms best number to chino ch him is . elephone Encounter - Orly Villavicencio MD - 11/28/2019 6:47 AM PDTNew phone num erick: [phone] (if this does not work, try [phone]). Please let patient know labs showed: His [...]
--- OUTSIDE RECORDS SUMMARY | ~2020-04-16 | XMS | Encounter Summary ---
Demographics + + + | Address | [address] | | | [place] [address] | + + + | Home Phone | | + + + | Preferred Language | Unknown | + + + | Marital Status | Single | + + + | Religion Affiliation | Unknown | + + + | Race | or | + + + | Ethnic Group | Not or | + + + Author + + + | Author | [facility] | | | and [place] | + + + | Organization | [facility] | | [...] Team Providers + +------+ + | Care Computer Lab Para Professional Name | Role | Phone | + +------+ + | Orly Villavicencio MD | PCP | | + +------+ + Encounter Details +--------+ + + + + | Date | Type | Department | Care Team | Description | +--------+ + + + + | 10/24/ | Abstract | [facility] [place] [facility] | Orly Villavicencio | | | 2020 | | MEDIC[address] | [address] | | | | | [place], | [address] [place] | | | | | [place] [address] | [place] [address] | | | | | [phone] | | | | | | | [...]
--- OUTSIDE RECORDS SUMMARY | ~2020-04-16 | XMS | Encounter Summary ---
Demographics + + + | Address | [address] | | | [place] [address] | + + + | Home Phone | | + + + | Preferred Language | Unknown | + + + | Marital Status | Single | + + + | Hindu Affiliation | Unknown | + + + [...] Team Providers + +------+ + | Care Mri Specialist Name | Role | Phone | [...] + + | 07/03/ | Office | [facility] | Orly Villavicencio | Hepatic cirrhosis, | | 2018 | Visit | MEDIC[address] | [address] | unspecified hepatic | | | | [place], | Bill [facility] | cirrhosis type, | | | | [place] [address] | [place] [address] | unspecified whether | | | | [phone] | [phone] | ascites present | | | | [...] in pain or any respiratory distress. HEENT: [place] conjunctivae, anicteric sclerae. No neck vein engorgement. [...] | + +--------+ + + + | RN WOUND REPORT - | | 10/24/2019 | | Results for this | | EXTERNAL SCAN | | 12:00 AM | | procedure are in the | | | | PST | | results section. | + +--------+ + + + | RN WOUND REPORT - | | 10/24/2019 | | [...] unspecified provider. | | + + + RN WOUND REPORT - EXTERNAL SCAN (10/24/2019 12:00 AM PST) + + + | Narrative | Performed At | + + + | Ordered by an | | | unspecified provider. | | + + + RN WOUND REPORT - EXTERNAL SCAN (10/24/2019 12:00 AM [...] + | [facility] | [address] | [place] | [phone] | | [facility] | | [address] | | | - LABORATORY | | [...] mL/min/1.73m2 | [facility] | | | [place] | RATE,ESTIMATED | | MEDICAL | | | | mL/min/1.53n5Pkxj than | | CENTER - | | [...] [address] | [place] | [phone] | | [facility] | | [address] | | | - LABORATORY | | [...] [address] | [place] | [phone] | | [facility] | | [address] | | | - LABORATORY | | [...]
--- OUTSIDE RECORDS SUMMARY | ~2020-04-16 | XMS | Encounter Summary ---
Demographics + + + | Address | [address] | | | [place] [address] | + + + | Home Phone [...] Team Providers + +------+ + | Care Rest Room Attendant Name | Role | Phone | + [...] | [place] | | | | [place] [address] | [place] [address] | Screening | | | | [phone] | [phone] | | | | | | | [...]
--- OUTSIDE RECORDS SUMMARY | ~2020-04-16 | XMS | Encounter Summary ---
Demographics + + + | Address | [address] | | | [place] [address] | + + + | Home Phone [...] Author + + + | Author | [facility] | | | and [place] | + + + | Organization | [facility] | | | [...] Team Providers + +------+ + | Care Recreation Teacher Name | Role | Phone | + [...] + + | 09/30/ | Office | [facility] | Orly Villavicencio | Chronic hepatitis C | | 2018 | Visit | MEDICINE [address] | [address] | without hepatic coma | | | | [address]VE [place] [facility], | Bill [facility] | (HCC) (Primary Dx); | | | | [place] [address] | [place] [address] | Contusion of left | | | | [phone] | [phone] | chest wall, | | | | [...] in pain or any respiratory distress. HEENT: [place] conjunctivae, anicteric sclerae. No neck vein engorgement. [...] a good life". Spent 25 minutes in khuo-aj-dsva time with the patient, with greater than [...] [address] | [place] | [phone] | | [facility] | | [address] | | | - LABORATORY | | [...] [address] | [place] | [phone] | | [facility] | | [address] | | | - LABORATORY | | | | + + + + + Hepatitis C RNA, Quant, NAAT (09/30/2017 5:09 PM PST) + + + + + + | Component | Value | Ref Range | Performed | Pathologist | | | | | At | Signature | + + + + + + | HCV | [id number] | IU/mL | REFERENCE | | | [...] | REFERENCE LAB | | JOLIE Degroot [id number] Cath Lab Nurse: Jatin Hernandez MD, Phone: | [facility] | | [phone] | | + + + + + + + + | Performing | Address | City/State/Zipcode | Phone Number | | Organization | | | | + + + + + | REFERENCE LAB | [address] | [place], [place] | [phone] | | [facility] | [place] | [address] | | + + + + + [...] + | [facility] | [address] | [place] | [phone] | | [facility] | | [address] | | | - LABORATORY | | [...] | non- | FILTRATION | mL/min/1.73m2 | [facility] | | | [place] | RATE,ESTIMATED | | MEDICAL | | | | mL/min/1.94x1Ranm than | | CENTER - | | [...] | | | | | mg/dL | [facility] | | | | | [...] + | [facility] | [address] | [place] | [phone] | | [facility] | | [address] | | | - LABORATORY | | [...] [address] | [place] | [phone] | | [facility] | | [address] | | | - LABORATORY | | [...]
--- OUTSIDE RECORDS SUMMARY | ~2020-04-16 | XMS | Encounter Summary ---
Demographics + + + | Address | [address] | | | [place] [address] | + + + | Home Phone | | + + + | Preferred Language | Unknown | + + + | Marital Status | Single | + + + | Mandaeism Affiliation | Unknown | + + + [...] Team Providers + +------+ + | Care Script Writer Name | Role | Phone | + [...] + + | 06/02/ | Telephone | [facility] | Orly Villavicencio | Medication Question | | 2018 | | MEDICINE [address] | [address] | | | | | [place], | [address]na[address] [facility] | | | | | [place] [address] | [place] [address] | | | | | [phone] | [phone] | | | | | | | [...] Telephone Encounter - Nay Sykes RN - 06/09/2018 4:27 PM PDTPatient's sister [...]
--- OUTSIDE RECORDS SUMMARY | ~2020-04-16 | XMS | Encounter Summary ---
Demographics + + + | Address | [address] | | | [place] [address] | + + + | Home Phone [...] Team Providers + +------+ + | Care Riprap Placer Name | Role | Phone | + [...] | 04/16/ | Refill | [facility] [place] [facility] | Orly Villavicencio | Medication Refill | | 2019 | | MEDICINE [address] | [address] | | | | | [place], | [place]na[address] [facility] | | | | | [place] [address] | [facility] [place] [address] | | | | | [phone] | | | | | | | [...] Unknown Quantity remainin Pharmacy: [facility] in [place] Date of Last Refill: 05/02/18 Date of Last Visit: 06/01/18 Date of Next Visit: 04/24/19 documented in this encount er Plan of Treatment Not on filedocumented as of this encounter Visit Diagnoses Not on filedocumented in this encounter"
--- OUTSIDE RECORDS SUMMARY | ~2020-04-16 | XMS | Encounter Summary ---
Demographics + + + | Address | [address] | | | [place] [address] | + + + | Home Phone [...] Team Providers + +------+ + | Care People Greeter Name | Role | Phone | + +------+ + | Orly Villavicencio MD | PCP | | + +------+ + Encounter Details +--------+ + + + + | Date | Type | Department | Care Team | Description | +--------+ + + + + | 05/12/ | Hospital | [facility] | SaudBreannaOrly Daria | Chronic hepatitis C | | 2018 | Encounter | MED CTR ULTRASOUND | MD [address] | without hepatic coma | | | | [address] [place] | [address] [place] | (HCC); Alcoholism | | | | [place], [place] | [place] [address] | (HCC); Ascites due | | | | [address] | [phone] | to alcoholic | | | | [phone] | | hepatitis | +--------+ + + [...] daily. | tablet | | 18 | 8 | | | 2 tablets in the [...] for this | | | e | 12:42 PM | C without hepatic | procedure are in the | | | | PDT | coma (HCC) | results section. | | | | | Alcoholism (HCC) | | | | | | Ascites due to | | | | | | alcoholic hepatitis | | + +--------+ + + + documented in this encounter Results US Abdomen Complete [...] mildly | | | enlarged. Splenomegaly likely technical sales representative of portal venous | | | [...] enlarged. | | | | Splenomegaly likely technical sales representative of portal venous hypertension. | | [...] (HCC) | + + | Alcoholism (HCC) Other and unspecified alcohol dependence, unspecified drinking | | behavior | + + | Ascites due to alcoholic hepatitis | + + documented in this encounter"
--- OUTSIDE RECORDS SUMMARY | ~2020-04-16 | XMS | Encounter Summary ---
Demographics + + + | Address | [address] | | | [place] [address] | + + + | Home Phone [...] Author + + + | Author | [facility] | | | and [place] | + + + | Organization | [facility] | | | [...] Team Providers + +------+ + | Care Portrait Artist Name | Role | Phone | + [...] vomiting, | MD Shimon | [address], | | | | | intractabili | [address] | [address] | | | | | ty of | [place], | | | | | vomiting not | [place], [place] | [place] [address] | | | | | specified, | [address] | Phone: | | | | | unspecified | Phone: | [phone] | | | | | vomiting | [phone] | Fax: | | | | | type | Fax: | [phone] | | | | | Hepatic | [phone] | | | | | | cirrhosis, [...] + + | 04/25/ | Telephone | [facility] | Orly Villavicencio | Results | | 2018 | | [facility] [address] | [address] | | | | | [place], | [address] | | | | | [place] [address] | [place] [address] | | | | | [phone] | | | | | | | [...] let us know. She states she will strip picker medi cation and help him take [...] + + +--------+ + + | * [facility] [place] | [place]patient | Routin | Nausea [...]
--- OUTSIDE RECORDS SUMMARY | ~2020-04-16 | XMS | Encounter Summary ---
Demographics + + + | Address | [address] | | | [place] [address] | + + + | Home Phone [...] Author + + + | Author | [facility] | | | and [place] | + + + | Organization | [facility] | | [...] Team Providers + +------+ + | Care Internet Application Developer Name | Role | Phone | + +------+ + | Orly Villavicencio MD | PCP | | + +------+ + Encounter Details +--------+ + + + + | Date | Type | Department | Care Team | Description | +--------+ + + + + | 04/29/ | Hospital | [facility] | Orly Villavicencio | Alcoholic hepatitis | | 2015 | Encounter | MED CTR ULTRASOUND | [address] | without ascites | | | | [address] [place] | [address] [place] | | | | | [place], [place] | [place] [address] | | | | | [address] | [phone] | | | | | [phone] | | | | | | | Ethan Zambrano, | | | | | | Technologist | | +--------+ + + + + [...] +--------+ + + + | US ABDOMEN LIMITED | Routin | 04/29/2015 | Alcoholic | Results for this | | | e | 9:38 AM | hepatitis without | procedure are in the | | | | PDT | ascites | results section. | + +--------+ + + + documented in this encounter Results US Abdomen Limited (04/29/2015 9:38 AM PDT) + + | Specimen | + + | | + + + + + | Narrative | Performed At | + + + | LIMITED RIGHT UPPER QUADRANT ULTRASOUND: 04/29/2015 9:12 AM | [facility] | | CLINICAL HISTORY: alcohoism, abnormal liver function tests | [facility] | | COMPARISON:None FINDINGS: Liver:The liver is of normal | [facility] | | echogenicity and echo architecture. [...] | [facility] | [address] | [place] | [phone] | | [facility] | | [address] | | | - IMAGING | | | | + + + + + documented in this encounter Visit Diagnoses + + | Diagnosis | + + | Alcoholic hepatitis without ascites Acute alcoholic hepatitis | + + documented in this encounter"
--- OUTSIDE RECORDS SUMMARY | ~2020-04-16 | XMS | Encounter Summary ---
Demographics + + + | Address | [address] | | | [place] [address] | + + + | Home Phone [...] Team Providers + +------+ + | Care Detective Private Eye Name | Role | Phone | + [...] | 03/14/ | Refill | [facility] | Orly Villavicencio | Medication Refill | | 2020 | | MEDICINE [address] | [address] | | | | | [address] [place], | [address] | | | | | [place] [address] | [place] [address] | | | | | [phone] | [phone] | | | | | | | [...]
--- OUTSIDE RECORDS SUMMARY | ~2020-04-16 | XMS | Encounter Summary ---
Demographics + + + | Address | [address] | | | [place] [address] | + + + | Home Phone | | + + + | Preferred Language | Unknown | + + + | Marital Status | Single | + + + | Jew Affiliation | Unknown | + + + | Race | or | + + + | Ethnic Group | Not or | + + + Author + + + | Author | [facility] | | | and [place] | + + + | Organization | [facility] | | | [...] Team Providers + +------+ + | Care Cooker Pie Filling Name | Role | Phone | + [...] | | | | | coma, | [address] | [address] | | | | | unspecified | Phone: | Phone: | | | | | chronicity | [phone] | [phone] | | | | | Alcoholic | Fax: | Fax: | | | | | liver | [phone] | [phone] | | | | | disease | [...] + + | 04/23/ | Telephone | [facility] | Orly Villavicencio | Results | | 2014 | | MEDICINE [address] | [address] | | | | | [place], | [address] | | | | | [place] [address] | [place] [address] | | | | | [phone] | [phone] | | | | | | | [...] +--------+ + + | * [facility] [place] | [place] | Routin | Hepatitis [...] + + + | HCV Viral | [id number] (A)Comment: | NOTDET IU/mL | REFERENCE | [...] [place] | | | | | | [address] | | | | + + + [...] [address] | [place] [address] | [phone] | + + + + + HIV [...] order | | | | | | [id number] to order | | | | | [...] | | | | | may go [employer] to | | | | | | access literature | | | | | | regarding the change in | | | | | | HIVmethodologies. You | | | | | | may also contact [facility] | | | | | | Client Services | | | | | | foradditional | | | | | | information.Testing | | | | | | Performed: [facility], [address] | | | | | | [address], [place] | | | | | | [address] | | | | + + + [...] [address] | [place] [address] | [phone] | + + + + + Ammonia [...] ST. | [address] | [place] | [phone] | | [facility] | | [address] | | | - LABORATORY | | [...] | | | | mg/dL | [facility] | | | | | | MEDICAL | | | | | | CENTER - | | | | | | LABORATORY | | + + + + + + | eGFR, | >60Comment: GLOMERULAR | >=60 | [facility] | | | non- | FILTRATION | mL/min/1.73m2 | [facility] | | | Cypriot | RATE,ESTIMATED | | MEDICAL | | | | mL/min/1.00p5Awvu than | | CENTER - | | [...] | | | | mg/dL | [facility] | | | | | [...] ST. | [address] | [place] | [phone] | | [facility] | | [address] | | | - LABORATORY | | [...]
--- OUTSIDE RECORDS SUMMARY | ~2020-04-16 | XMS | Encounter Summary ---
Demographics + + + | Address | [address] | | | [place] [address] | + + + | Home Phone [...] + + + | Author | [facility] | | | and [place] | + + + | Organization | [facility] | | [...] Team Providers + +------+ + | Care Principal Software Engineer Name | Role | Phone | + [...] + + | 03/23/ | Telephone | [facility] | Orly Villavicencio | Results | | 2016 | | MEDICINE [address] | [address] | | | | | [place], | [address] [place] | | | | | [place] [address] | [place] [address] | | | | | [phone] | [phone] | | | | | | | [...] - 03/24/2016 10:40 AM PDTPatient in to mixing picker tender prescription with Venetie Ira ID elephone Encounter - Celeste Wright - 03/23/2016 2:37 PM PDTPrescription p laced in cabinet for mixing picker tender with photo id.Electronically signed by Celeste Wright at 09/2015 2:38 PM PDTTelephone Encounter - Natalia Hastings RN - 03/23/2016 1:22 PM PDTRX refugio azepam faxed to [facility]. RX hydrocodone sent to front end web designer ready for mixing picker tender. Lidia notified this is ready to pic [...] furosem dee dee and potassium sent to [facility]. Lidia says: 1. Patient is [...] letter from Dr Villavicencio, to "Gagan Liriano, [place], stating that danyelle blandon is under the [...] calling back. She can be reached at [phone] signed by Bruno Krueger at 03/23/2016 9:32 [...]
--- OUTSIDE RECORDS SUMMARY | ~2020-04-16 | XMS | Encounter Summary ---
Demographics + + + | Address | [address] | | | [place] [address] | + + + | Home Phone | | + + + | Preferred Language | Unknown | + + + | Marital Status | Single | + + + | Shinto Affiliation | Unknown | + + + [...] Team Providers + +------+ + | Care Program Eligibility Specialist Name | Role | Phone | [...] +--------+ + + + + + | Denied | Specialty | Gastroenterol | Diagnoses | [place], | G[facility] | | | Services | ogy | Intractable | Orly Huff | MD [address] | | | Required | | vomiting | MD Shimon | [address] | | | | | with nausea, | [address] | [place], | | | | | unspecified | [place] | [place] [address] | | | | | vomiting | [place], [place] | Phone: | | | | | type | [address] | [phone] | | | | | Hepatic | Phone: | Fax: | | | | | cirrhosis, | [phone] | [phone] | | | | | unspecified | Fax: | | | | | | hepatic | [phone] | | | | | | cirrhosis [...] | +--------+ + + + + + Encounter Details +--------+ + + + + | Date | Type | Department | Care Team | Description | +--------+ + + + + | 05/03/ | Orders Only | [facility] | Orly Villavicencio | Intractable vomiting | | 2019 | | MEDICINE [address] | [address] | with nausea, | | | | [address] [place], | [address] [place] | unspecified vomiting | | | | [place] [address] | [place] [address] | type (Primary Dx); | | | | [phone] | [phone] | Hepatic cirrhosis, | | | | | | unspecified hepatic | | | | | | cirrhosis type, | | | | | | unspecified whether | | | | | | ascites present | | | | | | (HCC); Chronic | | | | | | hepatitis C without | | | | | | hepatic coma (HCC) | +--------+ + + + + [...] as of this encounter Plan of Treatment + + +--------+ + + | Name | Type | Priori | Associated Diagnoses | Order Schedule | | | | ty | | | + + +--------+ + + | Gastroenterology, | Outpatient | Routin | Intractable | Ordered: 05/03/2019 | | External - AMB | Referral | e | vomiting with | | | Referral | | | nausea, unspecified | | | | | | vomiting type | | | | | | Hepatic [...] + | Diagnosis | + + | Intractable vomiting with nausea, unspecified vomiting type - Primary | + + | Hepatic cirrhosis, unspecified hepatic cirrhosis type, unspecified whether ascites | | present (HCC) | + + | Chronic hepatitis C without hepatic coma (HCC) | + + documented in this encounter"
--- OUTSIDE RECORDS SUMMARY | ~2020-04-16 | XMS | Encounter Summary ---
Demographics + + + | Address | [address] | | | [place] [address] | + + + | Home Phone [...] Team Providers + +------+ + | Care Jewelry Setter Name | Role | Phone | + [...] | 05/06/ | Refill | [facility] | Orly Villavicencio | Medication Refill | | 2015 | | [facility] [address] | [address] | | | | | [place], | [facility] | | | | | [place] [address] | [facility] [place] [address] | | | | | [phone] | [phone] | | | | | | | [...] PM PDTPrescription for lorazepam sent to front end manager to be faxed to [facility]hou in [place]. elephone Encounter - Yusra Carter RN - [...] Patient's girlfriend, Lesia, can be reached at [phone] Pharmacy of choice: [facility] LORazepam (ATIVAN) 1 mg tablet 1 mg, [...]
--- OUTSIDE RECORDS SUMMARY | ~2020-04-16 | XMS | Encounter Summary ---
Demographics + + + | Address | [address] | | | [place] [address] | + + + | Home Phone | | + + + | Preferred Language | Unknown | + + + | Marital Status | Single | + + + | Advent Affiliation | Unknown | + + + | Race | or | + + + | Ethnic Group | Not or | + + + Author + + + | Author | [facility] | | | and [place] | + + + | Organization | [facility] | | | [...] Team Providers + +------+ + | Care Sql Programmer Name | Role | Phone | + [...] | 08/24/ | Refill | [facility] | Orly Villavicencio | Medication Refill | | 2019 | | MEDICINE [address] | [address] | | | | | [place], | [address] [facility] | | | | | [place] [address] | [facility] [place] [address] | | | | | [phone] | [phone] | | | | | | | [...]
--- OUTSIDE RECORDS SUMMARY | ~2020-04-16 | XMS | Encounter Summary ---
Demographics + + + | Address | [address] | | | [place] [address] | + + + | Home Phone [...] Team Providers + +------+ + | Care Skiff Operator Name | Role | Phone | + +------+ + | Orly Villavicencio MD | PCP | | + +------+ + Encounter Details +--------+ + + + + | Date | Type | Department | Care Team | Description | +--------+ + + + + | 04/29/ | Hospital | [facility] | Orly Villavicencio | Alcoholic hepatitis | | 2015 | Encounter | MED CTR ULTRASOUND | [address] | without ascites | | | | [address] [place] | [address] [place] | | | | | [place], [place] | [place] [address] | | | | | [address] | [phone] | | | | | [phone] | | | | | | | [...] HISTORY: alcohoism, abnormal liver function tests | [facility] | | COMPARISON:None FINDINGS: Liver:The liver is of normal | [facility] | | echogenicity and echo architecture. [...] [address] | [place] | [phone] | | [facility] | | [address] | | | - IMAGING | | | | + + + + + documented in this encounter Visit Diagnoses + + | Diagnosis | + + | Alcoholic hepatitis without ascites Acute alcoholic hepatitis | + + documented in this encounter"
--- OUTSIDE RECORDS SUMMARY | ~2020-04-16 | XMS | Encounter Summary ---
Demographics + + + | Address | [address] | | | [place] [address] | + + + | Home Phone [...] Team Providers + +------+ + | Care Sandstone Inspector Repairer Name | Role | Phone | [...] | 08/24/ | Refill | [facility] | Orly Villavicencio | Medication Refill | | 2019 | | MEDICINE [address] | [address] | | | | | [place], | [address] [facility] | | | | | [place] [address] | [place] [address] | | | | | [phone] | | | | | | | [...]
--- OUTSIDE RECORDS SUMMARY | ~2020-04-16 | XMS | Encounter Summary ---
Demographics + + + | Address | [address] | | | [place] [address] | + + + | Home Phone [...] Team Providers + +------+ + | Care Erp Developer Name | Role | Phone | [...] Description | +--------+--------+ + + + | 02/03/ | Refill | [facility] | Orly Villavicencio | Medication Refill | | 2018 | | MEDICINE [address] | [address] | | | | | [place], | [address] | | | | | [place] [address] | [place] [address] | | | | | [phone] | [phone] | | | | | | | [...]
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
--- OUTSIDE RECORDS SUMMARY | ~2020-04-16 | XMS | Encounter Summary ---
Demographics + + + | Address | [address] | | | [place] [address] | + + + | Home Phone [...] Team Providers + +------+ + | Care Zinc Etcher Name | Role | Phone | + [...] + + | 05/02/ | Telephone | [facility] | Orly Villavicencio | Appointment | | 2018 | | MEDICINE [address] | [address] | | | | | [place], | [place] | | | | | [place] [address] | [place] [address] | | | | | [phone] | | | | | | | [...]
--- OUTSIDE RECORDS SUMMARY | ~2020-04-16 | XMS | Encounter Summary ---
Demographics + + + | Address | [address] | | | [place] [address] | + + + | Home Phone [...] Providers + +------+ + | Care Licensed Funeral Director Name | Role | Phone | [...] + | 04/30/ | Telephone | [facility] | Orly Villavicencio | Results | | 2014 | | MEDICINE [address] | [address] | | | | | [place], | [place] | | | | | [place] [address] | [place] [address] | | | | | [phone] | | | | | | | [...] stay with Dr Villavicencio. No PCP with [facility]. elephone Encounter - Orly Villavicencio MD - 04/30/2015 4:55 PM PDTPlease call patient or his girlfrien blossom Graf and report that his liver US did not show any significant findings which is good n ews. I am aware that they have decided to follow up with [facility]. Please advise to keep appt with GI as I have recommended, and to do follow up bloodwork amina t I also advised him to have. Order in EMR. If he has established with a new PCP at [facility], please change PCP in the EMR. Thanks. documented i n this encounter Plan of Treatment Not on filedocumented as of this encounter Visit Diagnoses Not on filedocumented in this encounter"
--- OUTSIDE RECORDS SUMMARY | ~2020-04-16 | XMS | Encounter Summary ---
Demographics + + + | Address | [address] | | | [place] [address] | + + + | Home Phone [...] Author + + + | Author | [facility] | | | and [place] | + + + | Organization | [facility] | | [...] Team Providers + +------+ + | Care Solar Panel Technician Name | Role | Phone | [...] + + | 05/12/ | Telephone | [facility] | Orly Villavicencio | Results | | 2018 | | [address]IC[address] | [address] | | | | | [place], | [place] | | | | | [place] [address] | [place] [address] | | | | | [phone] | | | | | | | [...] of results and recommendations. She agrees to product picker spironolactone, notified this would be a [...] + + + | Performed at: - [place] [address], | REFERENCE LAB | | [place], [place] [id number] Ship Purser: Mukund Ponce MD, Phone: | [place] [facility] [place] | | [phone] | | + + + + + + + + | Performing | Address | City/State/Zipcode | Phone Number | | Organization | | | | + + + + + | REFERENCE LAB | [address] | [place], [place] | [phone] | | [facility] | Drive [facility] | [address] | | + + + + + [...] | mL/min/1.73m2 | [facility] | | | [place] | RATE,ESTIMATED | | MEDICAL | | | | mL/min/1.83x5Tctg than | | CENTER - | | [...] [address] | [place] | [phone] | | [facility] | | [address] | | | - LABORATORY | | | | + + + + + documented in this encounter Visit Diagnoses + + | Diagnosis | + + | Hepatic cirrhosis, unspecified hepatic cirrhosis type, unspecified whether ascites | | present (HCC) - Primary | + + documented in this encounter"
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
--- OUTSIDE RECORDS SUMMARY | ~2020-04-16 | XMS | Encounter Summary ---
Demographics + + + | Address | [address] | | | [place] [address] | + + + | Home Phone | | + + + | Preferred Language | Unknown | + + + | Marital Status | Single | + + + | Uatsdin Affiliation | NON | + + + | Race | or | + + + | Ethnic Group | Not or | + + + Author + + + | Author | [facility] [facility] | + + + | [...] Providers + +------+ + | Care Technical Programs Manager Name | Role | Phone | [address] | | | | | [place], [place] | [place], [place] | | | | | [address] | [address] | | | | | [phone] | [phone] | | | | | | | [...] | + + + + + | [facility] | [address] [facility] | [place] [address] | | | PATHOLOGY | [address] | | | + + + + + | [facility] | [facility] | [place] [address] | | | PATHOLOGY | [address] [...] DEPARTMENT OF | [address] | [place], [place] [address] | | | PATHOLOGY | [address] | | | + + + + + | [facility] | [address] | [place] [address] | | | PATHOLOGY | [address] | | | + + + + + documented in this encounter Visit Diagnoses Not on filedocumented in this encounter"
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
--- OUTSIDE RECORDS SUMMARY | ~2020-04-16 | XMS | Encounter Summary ---
Demographics + + + | Address | [address] | | | [place] [address] | + + + | Home Phone | | + + + | Preferred Language | Unknown | + + + | Marital Status | Single | + + + | Buddhist Affiliation | Unknown | + + + [...] Team Providers + +------+ + | Care Vinyl Cutter Name | Role | Phone | [...] + + | 05/08/ | Telephone | [facility] | Orly Villavicencio | Referral (GI); | | 2018 | | [facility] [address] | [address] | Referral (US abdomen | | | | [place], | [address] | limited); Referral | | | | [place] [address] | [place] [address] | (US aorta) | | | | [phone] | [phone] | | | | | | | [...] PDTHeather returned call can be reached at [phone] elephone Encounter - Natalia De La Cruz RN - 05/22/2019 11:20 AM PDTSpoke to patient. He says he is [place] [employer] and he s ays he knew [...] answer her phone. Patient says he is [place] and may not have service when [...] this and asks I call his girlfriend [phone] to schedule. Call to Lesia. She agrees [...] on for appt. elephon e Encounter - Nay Sykes RN - 05/18/2019 10:26 AM PDTSpoke [...] 05/14/2019 3:57 PM PDTTelephone Encounter - Natalia Jewell RN - 05/08/2019 8:49 AM PDTCalled GI. [...]
--- OUTSIDE RECORDS SUMMARY | ~2020-04-16 | XMS | Encounter Summary ---
Demographics + + + | Address | [address] | | | [place] [address] | + + + | Home Phone [...] Author + + + | Author | [facility] | | | and [place] | + + + | Organization | [facility] | | [...] Team Providers + +------+ + | Care Electrical Manager Name | Role | Phone | [...] + + | 05/02/ | Telephone | [facility] | Orly Villavicencio | Appointment | | 2018 | | MEDICINE [address] | [address] | | | | | [place], | [address] | | | | | [place] [address] | [place] [address] | | | | | [phone] | [phone] | | | | | | | [...]
--- OUTSIDE RECORDS SUMMARY | ~2020-04-16 | XMS | Encounter Summary ---
Demographics + + + | Address | [address] | | | [place] [address] | + + + | Home Phone | | + + + | Preferred Language | Unknown | + + + | Marital Status | Single | + + + | Tenriism Affiliation | NON | + + + | Race | or | + + + | Ethnic Group | Not or | + + + Author + + + | Author | [facility] [employer] [facility] | + + + | Organization | [facility] | + + + | Address | Unknown | + + + | Phone | Unavailable | + + + Support + + +---------+ + | Name | Relationship | Address | Phone | + + +---------+ + | Kacey Holcomb | ECON | Unknown | | + + +---------+ + Care Team Providers + +------+ + | Care Forepart Rounder Name | Role | Phone | + [...] | Cervical Fx | Epic Dept | [address] | | | | Orthopedics | Procedures | | [address] | | | | | [place] | | [address] | | | | | OFFICE/OUTPT | | [place], [place] | | | | | | | [address] | | | | | VISIT,EST,LE | | Phone: | | | | | VL III | | [phone] | | | | | | | Fax: | | | | | | | [phone] | +--------+--------+ + + + + Encounter Details +--------+---------+ + + + | Date | Type | Department | Care Team | Description | +--------+---------+ + + + | 10/18/ | Office | Orthopaedic Spine | Chino Navas MD | Vertebral Fracture | | 2007 | Visit | Center at [facility] [address] | [address] | (Primary Dx) | | | | [address] | [address] [place], | | | | | Mailcode: CH8N | [place] [address] | | | | | [facility] | [phone] | | | | | and [place], | | | | | | [facility] | | | | | | [place], [place] | | | | | | [address] | | | | | | [phone] | | | +--------+---------+ + + + [...]
--- OUTSIDE RECORDS SUMMARY | ~2020-04-16 | XMS | Encounter Summary ---
Demographics + + + | Address | [address] | | | [place] [address] | + + + | Home Phone [...] Team Providers + +------+ + | Care Glass Rolling Machine Operator Name | Role | Phone [...] + + | 04/24/ | Telephone | [facility] | Orly Villavicencio | Other | | 2015 | | MEDICINE [address] | [address] | | | | | [place], | [address] [place] | | | | | [place] [address] | [place] [address] | | | | | [phone] | [phone] | | | | | | | [...] up with Dr. Jimenez on 05/02/15 at [facility]. documented in t his encounter Plan of Treatment Not on filedocumented as of this encounter Visit Diagnoses Not on filedocumented in this encounter"
--- OUTSIDE RECORDS SUMMARY | ~2020-04-16 | XMS | Encounter Summary ---
Demographics + + + | Address | [address] | | | [place] [address] | + + + | Home Phone | | + + + | Preferred Language | Unknown | + + + | Marital Status | Single | + + + | Jehovah'S Witness Affiliation | NON | + + + | Race | or | + + + | Ethnic Group | Not or | + + + Author + + + | Author | [facility] | + + + | Organization | [facility] | + + + | Address | Unknown | + + + | Phone | Unavailable | + + + Support + + +---------+ + | Name | Relationship | Address | Phone | + + +---------+ + | Kacey Holcomb | ECON | Unknown | | + + +---------+ + Care Team Providers + +------+ + | Care Chief Substation Operator Name | Role | Phone | [...] | 2006 | Visit | Center at [facility] [address] | [address] | (Primary Dx) | | | | [address] | [address] [place], | | | | | Mailcode: CH8N | [place] [address] | | | | | [facility] | [phone] | | | | | and Healing, | | | | | | Building | | | | | | [place], [place] | | | | | | [address] | | | | | | [phone] | | | +--------+---------+ + + + [...] occurred on 07/09/07. He was admitted to [facility] and was referred here by [facility] trauma. The symptoms are located in the [...] | + + +--------+ + + | ND CLOSED TREAT VERT | Procedures | Routin [...]
--- OUTSIDE RECORDS SUMMARY | ~2020-04-16 | XMS | Encounter Summary ---
Demographics + + + | Address | [address] | | | [place] [address] | + + + | Home Phone [...] Team Providers + +------+ + | Care Costume Shop Coordinator Name | Role | Phone | [...] [place] | | | | | | [address] | [address] | | | | | | Phone: | Phone: | | | | | | [phone] | [phone] | | | | | | Fax: | Fax: | | | | | | [phone] | [phone] | +--------+ + + + + + [...] + | 10/03/ | Telephone | [facility] | Orly Villavicencio | Results | | 2018 | | MEDICINE [address] | [address] | | | | | [place], | [address] | | | | | [place] [address] | [place] [address] | | | | | [phone] | [phone] | | | | | | | [...] to call back. elephone Encounter - Nay ySkes RN - 10/07/2017 10:34 AM PSTLe ft [...]
--- OUTSIDE RECORDS SUMMARY | ~2020-04-16 | XMS | Encounter Summary ---
Demographics + + + | Address | [address] | | | [place] [address] | + + + | Home Phone [...] Author + + + | Author | [facility] | | | and [place] | + + + | Organization | [facility] | | | [...] Providers + +------+ + | Care Electrical Experimental Mechanic Name | Role | Phone | + +------+ + | Orly Villavicencio MD | PCP | | + +------+ + Reason for Visit + + + | Reason | Comments | + + + | Chest Heaviness | | + + + Encounter Details +--------+ + + + + | Date | Type | Department | Care Team | Description | +--------+ + + + + | 09/24/ | Emergency | [facility] | Filiberto Yan, | Chest wall | | 2018 - | | [facility] | MD [address] | contusion, left, | | | | CENTER [address] | [place] | initial encounter | | 09/25/ | | [place] | [id number] | (Primary Dx) | | 2018 | | [address] | | | | | | [phone] | | | +--------+ + + + [...] + + | Pulse | 78 | 09/24/2017 11:08 PM | | | | | PST | | + + + + + | Temperature | 36.6 C (97.8 F) | 09/24/2017 11:08 PM | | | | | PST | | + + + + + | Respiratory Rate | 16 | 09/24/2017 11:08 PM | | | | | PST | | + + + + + | Oxygen Saturation | 94% | 09/24/2017 11:08 PM | | | | | PST | | + + + + + | Inhaled Oxygen | - | - | | | Concentration | | | | + + + + + | Weight | - | - | | + + + + + | Height | - | - | | + + + + + | Body Mass Index | - | - | | + + + + + documented in this encounter Discharge Instructions Instructions Filiberto Yan MD - 09/24/2017Return if worsening or new concerning symptoms . Follow-up with your primary care provider if not improved in the next 2 weeks. AttachmentsThe following attachments cannot be sent through Care Everywhere.Chest Wall Cont usion (South Sudanese)documented in this encounter Medications at Time of Discharge + + + +---------+ + + | Medication | Sig | Dispensed | Refills | Start | End Date | | | | | | Date | | + + + +---------+ + + | furosemide (LASIX) | Take 1 tablet by | 30 | 1 | 02/25/20 | | | 40 mg tablet | mouth Daily. | tablet | | 17 | 8 | + + + +---------+ + + | | Take 1 tablet by | 15 | 0 | 09/24/19 | | | HYDROcodone-acetamin | mouth every 6 hours | tablet | | 18 | 8 | | ophen (NORCO) 5-325 | as needed for Pain. | | | | | | mg per tablet | | | | | | [...] tablet by | 20 | 0 | 02/25/20 | | | 1 mg tablet | mouth every 6 hours | tablet | | 17 | 8 | | | as needed for | | | | | | | Anxiety (alcohol | | | | | | | withdrawal). | | | | | + + + +---------+ + + | potassium chloride | Take 1 tablet by | 30 | 1 | 02/25/20 | | | (K-DUR) 20 mEq ER | mouth Daily. | tablet | | 17 | 8 | | tablet | | | | [...] documented as of this encounter ED Notes Filiberto Yan MD - 09/24/2017 11:19 PM PSTFormatting of this note might be different fro m the original. eMERGENCY dEPARTMENT eNCOUnter CHIEF COMPLAINT Chief Complaint Patient presents with Chest Heaviness HPI Hossein Holcomb is a 61 y.o. male who presents complaining of left chest wall pain af ter falling off a horse 3 or 4 days ago. He states that he slid off the back of the horse an d fell onto his buttocks. He has had pain in the left side of his chest that is worse with m ovement, coughing, or deep breath since that time. No fevers or chills. He has taken ibuprof en for pain without relief. Denies any shortness of breath PAST MEDICAL HISTORY Past Medical History: Diagnosis Date Chest trauma, penetrating bucked off a horse Pneumonia SURGICAL HISTORY Past Surgical History: Procedure Laterality Date CHEST TUBE INSERTION right (chest trauma fter being bucked off a horse CURRENT MEDICATIONS Discharge Medication List as of 09/24/2017 23:57 CONTINUE these medications which have NOT CHANGED Details furosemide (LASIX) 40 mg tablet Take 1 tablet by mouth Daily.Disp-30 tablet, R-1, Normal Lactulose 20 GM/30ML SOLN Take 20 g by mouth 3 times daily. or more to produce 2-3 soft sto ols a day.Disp-946 mL, R-1, Normal LORazepam (ATIVAN) 1 mg tablet Take 1 tablet by mouth every 6 hours as needed for Anxiety ( alcohol withdrawal).Disp-20 tablet, R-0, Manual Fax potassium chloride (K-DUR) 20 mEq ER tablet Take 1 tablet by mouth Daily.Disp-30 tablet, R- 1, Normal triamcinolone (KENALOG) 0.1% cream Apply thin film to affected area(s) three times daily fo r 2 weeks. Avoid face and groin areasDisp-28.4 g, R-2, Normal ALLERGIES No Known Allergies FAMILY HISTORY No family history on file. SOCIAL HISTORY Social History Social History Marital status: Single Spouse name: N/A Number of children: 1 Years of education: N/A Occupational History Unemployed Social History Main Topics Smoking status: Current Every Day Smoker Packs/day: 0.50 Years: 45.00 Types: Cigarettes Smokeless tobacco: Never Used Alcohol use 75.6 oz/week 126 Cans of beer per week Comment: quit since 04/06/15 Drug use: Yes Types: Marijuana, Methamphetamines Comment: Occasional; last used 03/05 - methamphetamine Sexual activity: Yes Partners: Female Other Topics Concern Not on file Social History Narrative Born in [place]. Lives with girlfriend lidia. Has 1 child with her. He is uncertain how many other children he has. REVIEW OF SYSTEMS A 12 system review of systems is otherwise negative except as noted in the HPI above. PHYSICAL EXAM VITAL SIGNS: (first vital signs):Temp: 36.6 C (97.8 F) Pulse: 78 Resp: 16 SpO2: 94 % Constitutional: Well developed, Well nourished, No acute distress, Non-toxic appearance. HENT: Normocephalic, Atraumatic, Bilateral external ears normal, Oral mucosa moist, doughnut machine operator ior pharynx no exudates, Nose normal. Neck-supple, nontender, no meningismus, No stridor. Eyes: PERRL, EOMI, Conjunctiva normal, No discharge. Respiratory: Breath sounds equal bilaterally, no adventitious sounds, reproducible left-si ded chest wall tenderness over the left pectoral muscle as well as the left lateral and post erior ribs without crepitus or step off Cardiovascular: Normal rate, normal S1, S2, no murmurs, rubs, or gallops GI: Abdomen soft, non-tender, non-distended, normal bowel sounds, no CVA tenderness : Musculoskeletal: Intact distal pulses, No edema, No tenderness, No cyanosis. Good range of motion in all major joints. No tenderness to palpation or major deformities noted. Back- No tenderness. Skin: Warm, Dry, No erythema, No rash or lesions. Lymphatic: Neurologic: Alert & oriented x 3, Cranial nerves II-XII intact, Normal sensation, motor, a nd strength in all four extremities, No focal deficits noted. Psychiatric: Affect normal, Judgment normal, Mood normal. Labs Reviewed - No data to display RADIOLOGY CT Results: No results found. EKG Interpretation Interpreted by me Rhythm: normal sinus Rate: normal [place]: normal Ectopy: none Conduction: normal ST Segments: no acute change T Waves: no acute change Q Waves: none Clinical Impression: no acute changes and normal EKG Chest x-ray shows no pneumothorax, hemothorax, pulmonary contusion, or rib fractures ED COURSE & MEDICAL DECISION MAKING Pertinent Labs & Imaging studies reviewed. (See chart for details) Patient presents with injury to the left chest wall and associated pain. X-rays were unrema rkable. ECG was unremarkable. Patient was given hydrocodone for pain and will be discharged home and should follow up with primary care and return if new concerning symptoms develop. Last Set of Vital Signs: Temp: 36.6 C (97.8 F) Pulse: 78 Resp: 16 SpO2: 94 % FINAL IMPRESSION 1. Chest wall contusion, left, initial encounter PLAN Follow-up Information Orly Villavicencio MD. Specialty: Internal Medicine Why: As needed Contact information: [address] [place] [address] Discharge Medication List as of 09/24/2017 23:57 START taking these medications Details HYDROcodone-acetaminophen (NORCO) 5-325 mg per tablet Take 1 tablet by mouth every 6 hours as needed for Pain.Disp-15 tablet, R-0, Print Filiberto Yan MD 09/25/17 0031 ak Morales RN - 09/24/2017 11:13 PM PSTPt. Says he slid off horse and landed on his butt. He has tailb one pain as well. Zak Morales RN - 09/24/2017 11:07 PM PSTPt. Has chest pressure and pain for days. The pain is reproduceable. It hurts when he coughs. documented in this encounter Plan of Treatment Not on filedocumented as of this encounter Procedures + +--------+ + + + | Procedure Name | Priori | Date/Time | Associated Diagnosis | Comments | | | ty | | | | + +--------+ + + + | XR RIBS LEFT W PA | Routin | 09/25/2017 | | Results for this | | CHEST | e | 12:07 AM | | procedure are in the | | | | PST | | results section. | + +--------+ + + + | ECG 12 LEAD | STAT | 09/24/2017 | | Results for this | | | | 11:10 PM | | procedure are in the | | | | PST | | results section. | + +--------+ + + + documented in this encounter Results XR Ribs Left w PA Chest (09/25/2017 12:07 AM PST) + + | Specimen | + + | | + + + + + | Narrative | Performed At | + + + | SIX VIEWS CHEST AND LEFT RIBS 09/24/2017 11:19 PM CLINICAL | [facility] | | HISTORY: Chest wall pain after fall COMPARISON: None available | | | FINDINGS: The cardiomediastinal silhouette and pulmonary vasculature | | | are unremarkable. There is mild hazy reticular opacity in the lung | | | bases. The upper lung ballard are clear and no pneumothorax or | | | pleural effusion is visible. There is multilevel spondylosis. | | | Healed appearing right lower lateral rib fractures are present. | | | No recent rib fracture is identified. IMPRESSION - 1. NO | | | RADIOGRAPHIC EVIDENCE OF ACUTE TRAUMATIC INJURY. 2. BASILAR | | | RETICULAR OPACITY FAVORING EPICARDIAL FAT AND/OR ATELECTASIS/SCAR. | | | Dictated and Signed by: Andrea Caro MD Electronically signed: | | | 09/25/2017 9:00 AM | | + + + + + | Procedure Note | + + | Keegan, Rad Results In - 09/25/2017 9:03 AM PST SIX VIEWS CHEST AND LEFT RIBS 09/24/2017 | | 11:19 PMCLINICAL HISTORY: Chest wall pain after fallCOMPARISON: None availableFINDINGS: | | The cardiomediastinal silhouette and pulmonary vasculature areunremarkable. There is | | mild hazy reticular opacity in the lung bases. Theupper lung ballard are clear and no | | pneumothorax or pleural effusion is visible. There is multilevel spondylosis. Healed | | appearing right lower lateral ribfractures are present. No recent rib fracture is | | identified.IMPRESSION -1. NO RADIOGRAPHIC EVIDENCE OF ACUTE TRAUMATIC INJURY.2. | | BASILAR RETICULAR OPACITY FAVORING EPICARDIAL FAT AND/OR ATELECTASIS/SCAR.Dictated and | | Signed by: Andrea Caro MD Electronically signed: 09/25/2017 9:00 AM | |There is multilevel spondylosis. Healed appearing right lower lateral rib | |fractures are present. No recent rib fracture is identified. | | | |IMPRESSION - | |1. NO RADIOGRAPHIC EVIDENCE OF ACUTE TRAUMATIC INJURY. | | | |2. BASILAR RETICULAR OPACITY FAVORING EPICARDIAL FAT AND/OR ATELECTASIS/SCAR. | | | |Dictated and Signed by: Andrea Caro MD | | Electronically signed: 09/25/2017 9:00 AM | + + + +---------+ + + | Performing | Address | City/State/Zipcode | Phone Number | | Organization | | | | + +---------+ + + | [facility] | | | | + +---------+ + + ECG 12 lead (09/24/2017 11:10 PM PST) + + + + + + | Component | Value | Ref Range | Performed | Pathologist | | | | | At | Signature | + + + + + + | VENTRICULAR | 76 | BPM | [facility] | | | RATE EKG | | | | | + + + + + + | ATRIAL RATE | 76 | BPM | [facility] | | + + + + + + | P-R | 140 | ms | [facility] | | | INTERVAL | | | | | + + + + + + | QRS | 86 | ms | [facility] | | | DURATION | | | | | + + + + + + | Q-T | 408 | ms | [facility] | | | INTERVAL | | | | | + + + + + + | Q-T | 459 | ms | [facility] | | | INTERVAL | | | | | | (CORRECTED) | | | | | + + + + + + | P WAVE AXIS | 25 | degrees | [facility] | | + + + + + + | QRS AXIS | 45 | degrees | [facility] | | + + + + + + | T AXIS | 54 | degrees | [facility] | | + + + + + + | INTERPRETAT | Normal sinus | | [facility] | | | ION TEXT | rhythmNormal ECGNo | | | | | | previous ECGs | | | | | | availableConfirmed by | | | | | | TONIE BENOIT MD ([id number]) | | | | | | on 09/25/2017 8:44:37 AM | | | | + + + + + + + + | Specimen | + + | | + + + + + | Narrative | Performed At | + + + | | | + + + + +---------+ + + | Performing | Address | City/State/Zipcode | Phone Number | | Organization | | | | + +---------+ + + | [facility] | | | | + +---------+ + + documented in this encounter Visit Diagnoses + + | Diagnosis | + + | Chest wall contusion, left, initial encounter - Primary | + + documented in this encounter Administered Medications + + + + +------+------+ | Medication Order | MAR | Action | Dose | Rate | Site | | | Action | Date | | | | + + + + +------+------+ | HYDROcodone-acetaminophen | Dispense | 09/25/19 | 1 tablet | | | | (NORCO) 5-325 mg per tablet (ER | to Home | 18 12:03 | | | | | Prepack) 1-2 tablet 1-2 tablet, | | AM PST | | | | | Oral, ONCE, 09/25/17 at 0000, | | | | | | | For 1 dose, 1-2 tablet(s) every 6 | | | | | | | hours prn pain Dispense for | | | | | | | home use., | | | | | | + + + + +------+------+ +---+---+ | | | +---+---+ + +-------+ +---------+---+---+ | HYDROcodone-acetaminophen | Given | 09/24/19 | 2 | | | | (NORCO) 5-325 mg per tablet 2 | | 18 11:25 | tablets | | | | tablet 2 tablet, Oral, ONCE, Sat | | PM PST | | | | | 09/24/17 at 2320, For 1 dose | | | | | | + +-------+ +---------+---+---+ +---+---+ | | | +---+---+ documented in this encounter"
--- OUTSIDE RECORDS SUMMARY | ~2020-04-16 | XMS | Encounter Summary ---
Demographics + + + | Address | [address] | | | [place] [address] | + + + | Home Phone | | + + + | Preferred Language | Unknown | + + + | Marital Status | Single | + + + | Congregation Affiliation | NON | + + + | Race | or | + + + | Ethnic Group | Not or | + + + Author + + + | Author | [facility] [email or web address] [facility] | + + + | Organization | [facility] | + + + | Address | Unknown | + + + | Phone | Unavailable | + + + Support + + +---------+ + | Name | Relationship | Address | Phone | + + +---------+ + | Kacey Holcomb | ECON | Unknown | | + + +---------+ + Care Team Providers + +------+ + | Care Mercury Cracking Tester Name | Role | Phone | [...] [address] | | | | | | [place], [place] | | | | | | [address] | | | +--------+ + + + [...] as of this encounter Discharge Summaries Interface, Golf Club Head Inspector In - 08/08/2007 2:29 AM PST [id number] KATHERINE KARIMI [id number] Admission Date: 07/09/2007 Discharge Date: 07/10/2007 Staff Physician: Winifred Miranda M.D. Principal Final Diagnosis: C6 vertebral fracture. Principal Procedure: 1. [place] collar fitting. 2. Spine Service consultation. Additional [...] For this reason, he was transferred to [facility] for further evaluation and treatment. Hospital Course: The patient was admitted to the Emergency Department and confirmed to have an end plate fracture of the C6 vertebral body. He was seen by our Spine Consultation Service. He was fitted with an [place] collar and evaluated by Physical Therapy safety with ambulation. On the following day, he was felt ready for discharge to home with followup in the [facility] in 3 weeks' time. Condition on Discharge: Stable. Discharge Instruction(s): [place] collar to be worn at all times. Followup: He had follow up with the Trauma Clinic as needed, and should otherwise follow up with Orthopedics Spine Surgery. Winifred Miranda M.D. JOVANI / MANI [id number] / [id number] / [id number] / Electronically signed by Winifred Miranda 08-07-2007 04:15:53 PM documented in this encounter Plan of Treatment Not on filedocumented as of this encounter Visit Diagnoses Not on filedocumented in this encounter"
--- OUTSIDE RECORDS SUMMARY | ~2020-04-16 | XMS | Encounter Summary ---
Demographics + + + | Address | [address] | | | [place] [address] | + + + | Home Phone [...] Providers + +------+ + | Care Supervisor Payroll Name | Role | Phone | + [...] + + | 12/06/ | Office | [facility] | Orly Villavicencio | Alcoholic hepatitis | | 2018 | Visit | MEDICINE [address] | MD [address] | without ascites | | | | [place], | Bill Martinez | (Primary Dx); | | | | [place] [address] | [facility] [place] [address] | Chronic hepatitis C | | | | [phone] | [phone] | without hepatic coma | | | [...] distress. Awake, alert, pleasant, and oriented. HEENT: [place] conjunctivae, anicteric sclerae. No neck vein engorgement. [...] at this time. Spent 25 minutes in csqp-ya-wlhc time with the patient, with greater than [...] [address] | [place] | [phone] | | [facility] | | [address] | | | - LABORATORY | | [...] | + + + + + | [facility] | [address] | [place] | [phone] | | [facility] | | [address] | | | - LABORATORY | | [...] | 0.77 | 0.60 - 1.30 | [facility] | | | | | mg/dL | [facility] | | | | | | MEDICAL | | | | | | CENTER - | | | | | | LABORATORY | | + + + + + + | eGFR, | >60Comment: GLOMERULAR | >=60 | [facility] | | | non- | FILTRATION | mL/min/1.73m2 | [facility] | | | [place]an | RATE,ESTIMATED | | MEDICAL | | | | mL/min/1.84b1Liny than | | CENTER - | | [...] [address] | [place] | [phone] | | [facility] | | [address] | | | - LABORATORY | | [...] | Neutrophils | | K/uL | [facility] | | | | [...] [address] | [place] | [phone] | | [facility] | | [address] | | | - LABORATORY | | [...]
--- OUTSIDE RECORDS SUMMARY | ~2020-04-16 | XMS | Encounter Summary ---
Demographics + + + | Address | [address] | | | [place] [address] | + + + | Home Phone | | + + + | Preferred Language | Unknown | + + + | Marital Status | Single | + + + | Scientology Affiliation | Unknown | + + + [...] Team Providers + +------+ + | Care Pigment Furnace Tender Name | Role | Phone | + [...] + + | 06/01/ | Office | [facility] | Orly Villavicencio | Alcoholic liver | | 2018 | Visit | MEDICINE [address] | MD [address] | disease (HCC) | | | | [place], | Arnaud Melo | (Primary Dx); | | | | [place] [address] | [facility] [place] [address] | Chronic hepatitis C | | | | [phone] | [phone] | without hepatic coma | | | [...] in pain or any respiratory distress. HEENT: [place] conjunctivae, anicteric sclerae. No neck vein engorgement. [...] in the past. Spent 25 minutes in kxtg-fz-rsfi time with the patient, with greater than [...]
--- OUTSIDE RECORDS SUMMARY | ~2020-04-16 | XMS | Encounter Summary ---
Demographics + + + | Address | [address] | | | [place] [address] | + + + | Home Phone [...] Team Providers + +------+ + | Care Workforce Development Specialist Name | Role | Phone | [...] + + | 04/24/ | Office | [facility] | Orly Villavicencio | Hepatic cirrhosis, | | 2019 | Visit | MEDICINE [address] | MD [address] | unspecified hepatic | | | | MARIA LUISAE [place], | [facility] | cirrhosis type, | | | | [place] [address] | [place] [address] | unspecified whether | | | | [phone] | [phone] | ascites present | | | | [...] in pain or any respiratory distress. HEENT: [place] conjunctivae, anicteric sclerae. No neck vein engorgement. [...] as shown above. Spent 25 minutes in uusq-my-tjzz time with the patient, with greater than [...] [address] | [place] | [phone] | | [facility] | | [address] | | | - LABORATORY | | [...] + | [facility] | [address] | [place] | [phone] | | [facility] | | [address] | | | - LABORATORY | | [...] + | [facility] | [address] | [place] | [phone] | | [facility] | | [address] | | | - LABORATORY | | [...] | [address] | [place] | [phone] | | [facility] | | [address] | | | - LABORATORY | | [...] + + | Performed at: 01 - [facility] [address], | REFERENCE LAB | | [place], [place] [id number] Arnp: Mukund Ponce MD, Phone: | [facility] | | [phone] | | + + + + + + + + | Performing | Address | City/State/Zipcode | Phone Number | | Organization | | | | + + + + + | REFERENCE LAB | [address] | [place], [place] | [phone] | | [facility] | [facility] | [address] | | + + + + + [...] [address] | [place] | [phone] | | [facility] | | [address] | | | - LABORATORY | | [...] | | | | | | [facility] | | | | | | MEDICAL [...] | mL/min/1.73m2 | [facility] | | | Mal[place]ian | RATE,ESTIMATED | | MEDICAL | | | | mL/min/1.12x3Dswt than | | CENTER - | | [...] + | [facility] | [address] | [place] | [phone] | | [facility] | | [address] | | | - LABORATORY | | [...] [address] | [place] | [phone] | | [facility] | | [address] | | | - LABORATORY | | [...]
--- OUTSIDE RECORDS SUMMARY | ~2020-04-16 | XMS | Encounter Summary ---
Demographics + + + | Address | [address] | | | [place] [address] | + + + | Home Phone [...] Phone | + + +---------+ + | Patircia Dangeloson | ECON | Unknown | | + + +---------+ + Care Team Providers + +------+ + | Care Electrical Wiring Lineman Name | Role | Phone | + [...] + + | 06/19/ | Emergency | [facility] | Mamadou Del Real MD | Depression, | | 2018 | | [facility] | [address] | unspecified | | | | CENTER [address] | [place] | depression type | | | | [place] | [address] | (Primary Dx); | | | | [address] | | Alcohol abuse | | | | [phone] | | | +--------+ + + + [...] be sent through Care Everywhere.Addiction, Gen yvan (Polish)documented in this encounter Medications at Time of [...] might be different from t he original. [facility] Hossein Holcomb Emergency Department Encounter Note [address] [place] [id number] PCP:Orly Villavicencio MD [phone] CHIEF COMPLAINT: Chief Complaint Patient presents with Detox Evaluation ED Room: [facility] [address] Hossein Holcomb is a 63 y.o. 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 Lives with sister. He is "uncertain" [...] were reviewed along with EMS notes and shelter record s if applicable. (See chart for details) Medications and Allergy list reviewed. Nurses note and old records were reviewed The patient was seen and examined, Patient is a 63-year-old male with past medical history of alcohol abuse who presents [facility] detox and mental health evaluation. Reports [...] + | [facility] | [address] | [place] | [phone] | | [facility] | | [address] | | | - LABORATORY | | [...] [address] | [place] | [phone] | | [facility] | | [address] | | | - LABORATORY | | [...] ST. | [address] | [place], [place] | [phone] | | [facility] | | [address] | | | - LABORATORY | | [...] [address] | [place] | [phone] | | [facility] | | [address] | | | - LABORATORY | | [...] + | [facility] | [address] | [place], [place] | [phone] | | [facility] | | [address] | | | - LABORATORY | | [...] | mL/min/1.73m2 | [facility] | | | Greek | RATE,ESTIMATED | | MEDICAL | | | | mL/min/1.24i9Yggn than | | CENTER - | | [...] | | | | | | [facility] | | | | | | MEDICAL [...] [address] | [place] | [phone] | | [facility] | | [address] | | | - LABORATORY | | [...] ST. | [address] | [place] | [phone] | | [facility] | | [address] | | | - LABORATORY | | [...]
--- OUTSIDE RECORDS SUMMARY | ~2020-04-16 | XMS | Encounter Summary ---
Demographics + + + | Address | [address] | | | [place] [address] | + + + | Home Phone [...] Providers + +------+ + | Care Operations Program Manager Name | Role | Phone | [...] + + | 02/02/ | Telephone | [facility] | Orly Villavicencio | Results | | 2020 | | MEDICINE [address] | [address] | | | | | [place], | [address] | | | | | [place] [address] | [place] [address] | | | | | [phone] | [phone] | | | | | | | [...] to increase as advised. elephone Encounter - Lesai Hastings - 02/05/2020 10:12 AM PDTPatient returned call to speak with the nurse. Please call patient at [phone].Electronically signed by Lesia funez 02/05/2020 10:13 AM [...]
--- OUTSIDE RECORDS SUMMARY | ~2020-04-16 | XMS | Encounter Summary ---
Demographics + + + | Address | [address] | | | [place] [address] | + + + | Home Phone [...] Team Providers + +------+ + | Care Washing Machine Mechanic Name | Role | Phone | [...] with nausea, | [address] | [place], | | | | | unspecified | [place] | [place] [address] | | | | | vomiting | [place], [place] | Phone: | | | | | type | [address] | [phone] | | | | | Hepatic | Phone: | Fax: | | | | | cirrhosis, | [phone] | [phone] | | | | | unspecified | Fax: | | | | | | hepatic | [phone] | | | | | | cirrhosis [...] | 05/03/ | Orders Only | [facility] | Orly Villavicencio | Intractable vomiting | | 2019 | | MEDICINE [address] | [address] | with nausea, | | | | AVE [place], | [address] [place] | unspecified vomiting | | | | [place] [address] | [place] [address] | type (Primary Dx); | | | | [phone] | [phone] | Hepatic cirrhosis, | | | | [...]
--- OUTSIDE RECORDS SUMMARY | ~2020-04-16 | XMS | Encounter Summary ---
Demographics + + + | Address | [address] | | | [place] [address] | + + + | Home Phone | | + + + | Preferred Language | Unknown | + + + | Marital Status | Single | + + + | Alevism Affiliation | NON | + + + | Race | or | + + + | Ethnic Group | Not or | + + + Author + + + | Author | On [facility] | + + + | Organization | [facility] | + + + | Address | Unknown | + + + | Phone | Unavailable | + + + Support + + +---------+ + | Name | Relationship | Address | Phone | + + +---------+ + | Kacey Holcomb | ECON | Unknown | | + + +---------+ + Care Team Providers + +------+ + | Care Roving Court Reporter Name | Role | Phone | + +------+ + PCP | Unavailable | + +------+ + Encounter Details +--------+ + + + + | Date | Type | Department | Care Team | Description | +--------+ + + + + | 07/09/ | Results | Registration 3181 | Whitney Vega MD | | | 2006 | Only | [facility] | [address] | | | | | [address] Mailcode: RPB07 | [facility] | | | | | [place], [place] | [place] [address] | | | | | [address] | [phone] | | | | | [phone] | | | +--------+ + + + [...] + + documented in this encounter Results SO-GZXU-LYDM-DONT PROCESS (07/09/2007 5:05 PM PST) + + [...] + | [facility] | [address] | [place] [address] | | | PATHOLOGY | TRISTAN ALVAREZ | | | + + + + + | [facility] | [address] | [place] [address] | | | PATHOLOGY | TRISTAN ALVAREZ | | | + + + + + documented in this encounter Visit Diagnoses Not on filedocumented in this encounter"
--- OUTSIDE RECORDS SUMMARY | ~2020-04-16 | XMS | Encounter Summary ---
Demographics + + + | Address | [address] | | | [place] [address] | + + + | Home Phone [...] Team Providers + +------+ + | Care Buffing Wheel Former Automatic Name | Role | Phone | + [...] + + | 07/03/ | Telephone | [facility] INTER[facility] | Orly Villavicencio | Results | | 2019 | | MEDICINE [address] | [address] | | | | | [place], | [address] | | | | | [place] [address] | [place] [address] | | | | | [phone] | [phone] | | | | | | | [...]
--- OUTSIDE RECORDS SUMMARY | ~2020-04-16 | XMS | Encounter Summary ---
Demographics + + + | Address | [address] | | | [place] [address] | + + + | Home Phone [...] + + + | Author | [facility] | | | and [place] | + + + | Organization | [facility] | | [...] Team Providers + +------+ + | Care Bogger Operator Name | Role | Phone | + +------+ + | Orly Villavicencio MD | PCP | | + +------+ + Encounter Details +--------+ + + + + | Date | Type | Department | Care Team | Description | +--------+ + + + + | 03/26/ | Hospital | [facility] | Orly Villavicencio | Hepatitis C virus | | 2016 | Encounter | MED CTR LABORATORY | [address] | infection without | | | | [address] [place] | [address] [place] | hepatic coma, | | | | [place], [place] | [place] [address] | unspecified | | | | [address] | [phone] | chronicity; Abnormal | | | | [phone] | | LFTs | +--------+ + + [...] + + + | HCV Viral | [id number] (A)Comment: | NOTDET IU/mL | REFERENCE | [...] [place] | | | | | | [address] | | | | + + + [...] [address] | [place] [address] | [phone] | + + + + + HIV [...] order | | | | | | [id number] to order | | | | | [...] | | | | | may go [employer] to | | | | | | access literature | | | | | | regarding the change in | | | | | | HIVmethodologies. You | | | | | | may also contact [employer] | | | | | | Client Services | | | | | | foradditional | | | | | | information.Testing | | | | | | Performed: [facility], [address] | | | | | | [address], [place] | | | | | | [address] | | | | + + + + + + + + | Specimen | + + | Blood specimen | | (specimen) | + + + + + + + | Performing | Address | City/State/Zipcode | Phone Number | | Organization | | | | + + + + + | [facility] | [address] | [place] [address] | [phone] | + + + + + Ammonia [...] [address] | [place] | [phone] | | [facility] | | [address] | | | - LABORATORY | | [...] | non- | FILTRATION | mL/min/1.73m2 | [facility] | | | Maldivian | RATE,ESTIMATED | | MEDICAL | | | | mL/min/1.16k8Kboo than | | CENTER - | | [...] | | | | | mg/dL | [facility] | | | | [...] ST. | [address] | [place], [place] | [phone] | | [facility] | | [address] | | | - LABORATORY | | | | + + + + + documented in this encounter Visit Diagnoses + + | Diagnosis | + + | Hepatitis C virus infection without hepatic coma, unspecified chronicity | + + | Abnormal LFTs Other abnormal blood chemistry | + + documented in this encounter"
--- OUTSIDE RECORDS SUMMARY | ~2020-04-16 | XMS | Encounter Summary ---
Demographics + + + | Address | [address] | | | [place] [address] | + + + | Home Phone [...] + + + | Author | [facility] | | | and [place] | + + + | Organization | [facility] | | | [...] Team Providers + +------+ + | Care Application Processor Name | Role | Phone | + [...] + + | 05/18/ | Telephone | [facility] | [facility], | Other (Appointment) | | 2019 | | GASTROENTEROLOGY | BONIFACIO Mack [address] | | | | | [address] [place] | [facility] [address] | | | | | [address] [place], [place] | [place] | | | | | [address] | [id number] | | | | | [phone] | | | +--------+ + + + [...] to see the patient of 05-18-19. Infor [facility] we would like to wait to schedule [...]
--- OUTSIDE RECORDS SUMMARY | ~2020-04-16 | XMS | Encounter Summary ---
Demographics + + + | Address | [address] | | | [place] [address] | + + + | Home Phone | | + + + | Preferred Language | Unknown | + + + | Marital Status | Single | + + + | Druze Affiliation | NON | + + + | Race | or | + + + | Ethnic Group | Not or | + + + Author + + + | Author | [email or web address] | + + + | [...] Team Providers + +------+ + | Care Bakelite Molder Name | Role | Phone | + +------+ + PCP | Unavailable | + +------+ + Encounter Details +--------+ + + + + | Date | Type | Department | Care Team | Description | +--------+ + + + + | 07/09/ | Results | Registration 3181 | Whitney Vega MD | | | 2006 | Only | [facility] | [address] | | | | | [address] Mailcode: RPB07 | [facility] | | | | | [place], [place] | [place] [address] | | | | | [address] | [phone] | | | | | [phone] | | | +--------+ + + + [...] + + documented in this encounter Results VQ-BOMZ-PLRW-DONT PROCESS (07/09/2007 5:05 PM PST) + + [...] | + + + + + | [facility] | [address] | [place] [address] | | | PATHOLOGY | TRISTAN ALVAREZ | | | + + + + + | [facility] | [address] | [place] [address] | | | PATHOLOGY | TRISTAN ALVAREZ | | | + + + + + documented in this encounter Visit Diagnoses Not on filedocumented in this encounter"
--- OUTSIDE RECORDS SUMMARY | ~2020-04-16 | XMS | Encounter Summary ---
Demographics + + + | Address | [address] | | | [place] [address] | + + + | Home Phone [...] + + + | Author | [facility] | | | and [place] | + + + | Organization | [facility] | | | [...] Providers + +------+ + | Care Cloth Bale Header Name | Role | Phone | + [...] + | 12/01/ | Refill | [facility] | Christian Ham MD | Medication Refill | | 2017 | | MEDIC[address] | [address] [facility] | | | | | AVE [place], | [place] | | | | | [place] [address] | [id number] | | | | | [phone] | | | +--------+--------+ + + + [...]
--- OUTSIDE RECORDS SUMMARY | ~2020-04-16 | XMS | Encounter Summary ---
Demographics + + + | Address | [address] | | | [place] [address] | + + + | Home Phone [...] Team Providers + +------+ + | Care Hand Salter Name | Role | Phone | + [...] + + | 04/18/ | Telephone | [facility] | Orly Villavicencio | Results | | 2014 | | MEDICINE [address] | [address] | | | | | [place], | [address] [place] | | | | | [place] [address] | [place] [address] | | | | | [phone] | [phone] | | | | | | | [...] and verbalized understanding. elephone Encounter - Orly Villaviecncio MD - 04/18/2015 7:49 AM PDTPlease let [...]
--- OUTSIDE RECORDS SUMMARY | ~2020-04-16 | XMS | Encounter Summary ---
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 Take Escitalopram 1/2 tablet a day for [...] given to him by a doctor from [facility]. He complains of increased irritability, impatience, depression [...] labile mood. He is not jaundiced. HEENT: [place] conjunctivae, anicteric sclerae. No neck vein engorgement. [...] for bleeding or even ac berkley CVA. Hosesin has poor insight and poor short term [...] anxiety pill) for you sonya Childers in [place]. Take Escitalopram 1/2 tablet a day for [...] | + +--------+ + + + | MACHINE FARMWORKER REPORT - | | 10/24/2019 | | [...] + | [facility] | [address] | [place] | [phone] | | [facility] | | [address] | | | - LABORATORY | | [...] + + | Performed at: 01 [address] [place] [address], | REFERENCE LAB | | [place], [place] [address] Social Media Analyst: Mukund Ponce MD, Phone: | adRise | | [phone] Specimen Comment: This is a corrected | [...] + + + | REFERENCE LAB | [address] | [place], [place] | [phone] | | [facility] | [address] | [address] | | + + + + + [...] [address] | [place] | [phone] | | [facility] | | [address] | | | - LABORATORY | | [...] [address] | [place] | [phone] | | [facility] | | [address] | | | - LABORATORY | | [...] 9 | 9 - 23 mg/dL | [facility] | | | | | | [facility] | | | | | | MEDICAL | | | | | | CENTER - | | | | | | LABORATORY | | + + + + + + | Creatinine | 0.88 | 0.70 - 1.30 | [facility] | | | | | mg/dL | [facility] | | | | | | MEDICAL | | | | | | CENTER - | | | | | | LABORATORY | | + + + + + + | eGFR, | >60Comment: GLOMERULAR | >=60 | [facility] | | | non- | FILTRATION | mL/min/1.73m2 | [facility] | | | [place] | RATE,ESTIMATED | | MEDICAL | | | | mL/min/1.88o7Tjvf than | | CENTER - | | [...] [address] | [place] | [phone] | | [facility] | | [address] | | | - LABORATORY | | [...] + | [facility] | [address] | [place] | [phone] | | [facility] | | [address] | | | - LABORATORY | | [...] unspecified provider. | | + + + MACHINE FARMWORKER REPORT - EXTERNAL SCAN (10/24/2019 12:00 AM [...]
--- OUTSIDE RECORDS SUMMARY | ~2020-04-16 | XMS | Encounter Summary ---
Demographics + + + | Address | [address] | | | [place] [address] | + + + | Home Phone [...] Team Providers + +------+ + | Care Sharepoint Designer Developer Name | Role | Phone | [...] + + | 07/17/ | Telephone | [facility] | [facility] Referral (Follow up) | | 2019 | | GASTROENTEROLOGY | BONIFACIO Mack [address] | (GI) | | | | [address] [place] | [address] | | | | | [address] [place] | [place] | | | | | [address] | [id number] | | | | | [phone] | | | +--------+ + + + [...] 07/27/2019 12:28 PM PSTCalling girlfriend Lesia @ [phone]. Left message for Lesia to please call back. elephone Encounter - Orly Villavicencio MD - 07/25/2019 12:23 PM PSTPlease let Lesia know of this, Natalia. Keep appt in August. If they miss that, he cannot see a GI specialist locally [facility] Thanks. elephone En counter - Martina [...]
--- OUTSIDE RECORDS SUMMARY | ~2020-04-16 | XMS | Encounter Summary ---
Demographics + + + | Address | [address] | | | [place] [address] [...] Author + + + | Author | [facility] | | | and [place] | + + + | Organization | [facility] | | | [...] Team Providers + +------+ + | Care Window Display Designer Name | Role | Phone | [...] + | 02/03/ | Refill | [facility] | Orly Villavicencio | Medication Refill | | 2018 | | MEDICINE [address] | [address] | | | | | [place], | [address] | | | | | [place] [address] | [place] [address] | | | | | [phone] | | | | | | | [...]
--- OUTSIDE RECORDS SUMMARY | ~2020-04-16 | XMS | Encounter Summary ---
Demographics + + + | Address | [address] | | | [place] [address] | + + + | Home Phone [...] Team Providers + +------+ + | Care Belt And Link Shop Supervisor Name | Role | Phone | + +------+ + | Orly Villavicencio MD | PCP | | + +------+ + Encounter Details +--------+ + + + + | Date | Type | Department | Care Team | Description | +--------+ + + + + | 11/25/ | Hospital | [facility] | Orly Villavicencio | Community acquired | | 2020 | Encounter | MED CTR [address] XRAY | [address] | pneumonia of left | | | | [address] [place] | [address] [place] | lung, unspecified | | | | [place], [place] | [place] [address] | part of lung | | | | [address] | [phone] | | | | | [phone] | | | +--------+ + + + [...]
--- OUTSIDE RECORDS SUMMARY | ~2020-04-16 | XMS | Encounter Summary ---
Demographics + + + | Address | [address] | | | [place] [address] | + + + | Home Phone [...] Team Providers + +------+ + | Care Retail Sales Assistant Name | Role | Phone | + [...] [place] | | | | | | [address] | [address] | | | | | | Phone: | Phone: | | | | | | [phone] | [phone] | | | | | | Fax: | Fax: | | | | | | [phone] | [phone] | +--------+ + + + + + [...] + | 10/03/ | Telephone | [facility] | Orly Villavicencio | Results | | 2018 | | MEDICINE [address] | [address] | | | | | [place], | [address] | | | | | [place] [address] | [place] [address] | | | | | [phone] | [phone] | | | | | | | [...]
--- OUTSIDE RECORDS SUMMARY | ~2020-04-16 | XMS | Encounter Summary ---
Demographics + + + | Address | [address] | | | [place] [address] | + + + | Home Phone [...] Team Providers + +------+ + | Care Suction Operator Name | Role | Phone | [...] + + | 12/01/ | Telephone | [facility] | Orly Villavicencio | Coughing Up Blood; | | 2017 | | MEDIC[address] | [address] | Alcohol | | | | [place], | [address] | Intoxication; | | | | [place] [address] | [place] [address] | Hallucinations; | | | | [phone] | [phone] | Grief/ Loss | | | | [...] says he tried to be seen at [facility] and they refused. Lesia agrees to get patient and arrange for patient to get t o ED, [facility]. This routed to Dr Saud NGUYEN. documented in this encounter Plan of Treatment Not on filedocumented as of this encounter Visit Diagnoses Not on filedocumented in this encounter"
--- OUTSIDE RECORDS SUMMARY | ~2020-04-16 | XMS | Encounter Summary ---
Demographics + + + | Address | [address] | | | [place] [address] | + + + | Home Phone [...] Team Providers + +------+ + | Care Plating Tank Operator Apprentice Name | Role | Phone | + [...] + + | 10/13/ | Telephone | [facility] | Orly Villavicencio | Results | | 2018 | | MEDICINE [address] | [address] | | | | | [place], | [address] [place] | | | | | [place] [address] | [place] [address] | | | | | [phone] | [phone] | | | | | | | [...] er returned call, please try again at [phone]. Electronically signed by Sarah funez 10/25/2017 3:41 [...]
--- OUTSIDE RECORDS SUMMARY | ~2020-04-16 | XMS | Encounter Summary ---
Demographics + + + | Address | [address] | | | [place] [address] | + + + | Home Phone [...] Team Providers + +------+ + | Care Account Information Clerk Name | Role | Phone | [...] + + | 02/02/ | Telephone | [facility] | Orly Villavicencio | Results | | 2020 | | MEDICINE [address] | [address] | | | | | [place], | [address] | | | | | [place] [id number] | [place] [id number] | | | | | [phone] | [phone] | | | | | | | [...] with the nurse. Please call patient at [phone].Electronically signed by Lesia funez 02/05/2020 10:13 AM [...]
--- OUTSIDE RECORDS SUMMARY | ~2020-04-16 | XMS | Encounter Summary ---
Demographics + + + | Address | [address] | | | [place] [address] | + + + | Home Phone [...] Author + + + | Author | [facility] | | | and [place] | + + + | Organization | [facility] | | | [...] Team Providers + +------+ + | Care Frame Repairer Name | Role | Phone | [...] + + | 06/19/ | Office | [facility] | Orly Villavicencio | Alcoholism (HCC) | | 2019 | Visit | MEDICINE [address] | [address] | (Primary Dx); | | | | AVE [place], | [address] [place] | Depression, | | | | [place] [address] | [place] [address] | unspecified | | | | [phone] | [phone] | depression type; | | | | [...] is slightly somber. Has inappropriate laughter. HEENT: Alexis conjunctivae, slightly yellow and "dirty" appearing sclerae. [...] evaluate the patient. Spent 25 minutes in apik-ed-fwsb time with the patient, with greater than [...]
--- OUTSIDE RECORDS SUMMARY | ~2020-04-16 | XMS | Encounter Summary ---
Demographics + + + | Address | [address] | | | [place] [address] | + + + | Home Phone [...] Team Providers + +------+ + | Care Linemarker Name | Role | Phone | + +------+ + | Orly Villavicencio MD | PCP | | + +------+ + Encounter Details +--------+ + + + + | Date | Type | Department | Care Team | Description | +--------+ + + + + | 04/17/ | Hospital | [facility] | Orly Villavicencio | Alcoholic hepatitis | | 2015 | Encounter | MED CTR LABORATORY | [address] | without ascites | | | | [address] [place] | [place] | | | | | [place], [place] | [place] [address] | | | | | [address] | [phone] | | | | | [phone] | | | +--------+ + + + [...] | [facility] | | | | Ygaowu24.0 or greater | | | | | [...] [place] | | | | | | [address] | | | | + + + + + + + + | Specimen | + + | Blood specimen | | (specimen) | + + + + + + + | Performing | Address | City/State/Zipcode | Phone Number | | Organization | | | | + + + + + | [facility] | [address] | [place] [address] | [phone] | + + + + + Ammonia [...] [address] | [place] | [phone] | | [facility] | | [address] | | | - LABORATORY | | [...] [address] | [place] | [phone] | | [facility] | | [address] | | | - LABORATORY | | [...] | | MEDICAL | | | | mL/min/1.09i7Brkg than | | CENTER - | | [...] + | [facility] | [address] | [place] | [phone] | | [facility] | | [address] | | | - LABORATORY | | [...] [address] | [place] | [phone] | | [facility] | | [address] | | | - LABORATORY | | | | + + + + + documented in this encounter Visit Diagnoses + + | Diagnosis | + + | Alcoholic hepatitis without ascites Acute alcoholic hepatitis | + + documented in this encounter
--- OUTSIDE RECORDS SUMMARY | ~2020-04-16 | XMS | Encounter Summary ---
Demographics + + + | Address | [address] | | | [place] [address] | + + + | Home Phone | | + + + | Preferred Language | Unknown | + + + | Marital Status | Single | + + + | Sabianist Affiliation | Unknown | + + + [...] Providers + +------+ + | Care Medical Assistant Internal Medicine Name | Role | Phone | + [...] + + | 03/30/ | Telephone | [facility] | Orly Villavicencio | Results | | 2016 | | MEDICINE [address] | [address] | | | | | [place], | [address] [place] | | | | | [place] [address] | [place] [address] | | | | | [phone] | [phone] | | | | | | | [...] she was notified. Per Lesia, just use [place] [employer] insurance. Per Patient as voiced by Lesia, DO NOT attempt to get Cherelle Jackson authorization/Approval by Cherelle jackson. These n otes entered into the referral. cash reconciliation specialist notified. elephone Encounter - Natalia Hastings [...]
--- OUTSIDE RECORDS SUMMARY | ~2020-04-16 | XMS | Encounter Summary ---
Demographics + + + | Address | [address] | | | [place] [address] | + + + | Home Phone | | + + + | Preferred Language | Unknown | + + + | Marital Status | Single | + + + | Congregation Affiliation | Unknown | + + + [...] Team Providers + +------+ + | Care Weather Analyst Name | Role | Phone | [...] | | | | Chronic | [address] | [address] [place] | | | | | hepatitis C | [place] | [address] [place] | | | | | without | [place], [place] | [place] | | | | | hepatic coma | [address] | [address] | | | | | (HCC) | Phone: | Phone: | | | | | | [phone] | [phone] | | | | | | Fax: | Fax: | | | | | | [phone] | [phone] | +--------+ + + + + + Reason for Visit + + + | Reason | Comments | + + + | Leg Pain | bilateral below knee leg pain x3 months | + + + Encounter Details +--------+---------+ + + + | Date | Type | Department | Care Team | Description | +--------+---------+ + + + | 03/22/ | Office | [facility] | Orly Villavicencio | Bilateral leg pain | | 2016 | Visit | MEDICINE [address] | MD [address] | (Primary Dx); | | | | [address] [address] [facility], | [facility] | Elevated LFTs; | | | | [place] [address] | [facility] [place] [address] | Alcoholism (HCC); | | | | [phone] | [phone] | Chronic hepatitis C | | | [...] he [facility] for 30 d ays. Has [...] in pain or any respiratory distress. HEENT: [place] conjunctivae, anicteric sclerae. No neck vein engorgement. [...] order | | | | | | [id number] to order | | | | | [...] | | | | may also contact [facility] | | | | | | Client Services | | | | | | foradditional | | | | | | information.Testing | | | | | | Performed: [facility], [address] | | | | | | [address], [place] | | | | | | [address] | | | | + + + [...] [address] | [place] [address] | [phone] | + + + + + CK [...] + | [facility] | [address] | [place] | [phone] | | [facility] | | [address] | | | - LABORATORY | | [...] [address] | [place] | [phone] | | [facility] | | [address] | | | - LABORATORY | | [...] [address] | [place] | [phone] | | [facility] | | [address] | | | - LABORATORY | | [...] [address] | [place] | [phone] | | [facility] | | [address] | | | - LABORATORY | | [...] ST. | [address] | [place], [place] | [phone] | | [facility] | | [address] | | | - LABORATORY | | [...] [address] | [place] | [phone] | | [facility] | | [address] | | | - LABORATORY | | [...] [address] | [place] | [phone] | | [facility] | | [address] | | | - LABORATORY | | [...] | | | | | mg/dL | [facility] | | | | | | MEDICAL | | | | | | CENTER - | | | | | | LABORATORY | | + + + + + + | eGFR, | >60Comment: GLOMERULAR | >=60 | [facility] | | | non- | FILTRATION | mL/min/1.73m2 | [facility] | | | Nam[place]ian | RATE,ESTIMATED | | MEDICAL | | | | mL/min/1.49f8Wcec than | | CENTER - | | [...] | 8.9 | 8.3 - 10.5 | [facility] | | | | | mg/dL | [facility] | | | | | | [...] + | [facility] | [address] | [place] | [phone] | | [facility] | | [address] | | | - LABORATORY | | [...] ST. | [address] | [place], [place] | [phone] | | [facility] | | [address] | | | - LABORATORY | | [...]
--- OUTSIDE RECORDS SUMMARY | ~2020-04-16 | XMS | Encounter Summary ---
Demographics + + + | Address | [address] | | | [place] [address] | + + + | Home Phone | | + + + | Preferred Language | Unknown | + + + | Marital Status | Single | + + + | Advent Affiliation | NON | + + + | Race | or | + + + | Ethnic Group | Not or | + + + Author + + + | Author | [facility] | + + + | Organization [...] Team Providers + +------+ + | Care Road Manager Name | Role | Phone | [...] | 2007 | Visit | Center at [facility] [address] | [address] | (Primary Dx) | | | | [address] | [place], | | | | | Mailcode: CH8N | [place] [address] | | | | | [facility] | [phone] | | | | | and Healing, | | | | | | Building [address] | | | | | | Floor [place], [place] | | | | | | [address] | | | | | | [phone] | | | +--------+---------+ + + + [...]
--- OUTSIDE RECORDS SUMMARY | ~2020-04-16 | XMS | Encounter Summary ---
Demographics + + + | Address | [address] | | | [place] [address] | + + + | Home Phone [...] + + | Author | [facility] | | | and [place] | + + + | Organization | [facility] | | [...] Team Providers + +------+ + | Care Project Program Manager Name | Role | Phone [...] + + | 09/27/ | Telephone | [facility] | Brittaney Villavicencio | ER Follow-up | | 2018 | | MEDIC[place] | [address] | | | | | [address] | [place] | | | | | [place] | [place] [address] | | | | | [address] | [phone] | | | | | [phone] | | | +--------+ + + + [...] a nd RX hydrocodone sent to the front desk worker for Elmer to pickling machine operator. Again, Elmer notified IF THIS DOES NOT [...] appointment on 09/30. Please call Elmer at [phone]. 1 1:34 AM PSTTelephone Encounter - Natalia [...] appt scheduled. Furosemide and KCL sent to [facility]. elephone Encounter - Brittaney Villavicencio MD - 09/27/2017 5:06 PM PSTNeeds appt here this Tuesday. Ok to send furosemide and KCl to pharmacy of choice. He has not been seen here for almost 2 years. Thanks. elephone En elissa - Melissa Blue RN - 09/27/2017 1:31 PM [facility] [...] reports he is able to come to [place] for blood draw. Future Appts: No future appointments. docuemmanuel in this en counter Plan of Treatment Not on filedocumented as of this encounter Visit Diagnoses Not on filedocumented in this encounter"
--- OUTSIDE RECORDS SUMMARY | ~2020-04-16 | XMS | Encounter Summary ---
Demographics + + + | Address | [address] | | | [place] [address] | + + + | Home Phone | | + + + | Preferred Language | Unknown | + + + | Marital Status | Single | + + + | Voodoo Affiliation | Unknown | + + + [...] Team Providers + +------+ + | Care Accounting Policy Consultant Name | Role | Phone | + +------+ + | Olry Villavicencio MD | PCP | | + +------+ + Reason for Visit + + + | Reason | Comments | + + + | Medication Refill | | + + + Encounter Details +--------+--------+ + + + | Date | Type | Department | Care Team | Description | +--------+--------+ + + + | 07/27/ | Refill | [facility] | Orly Villavicencio | Medication Refill | | 2019 | | MEDICINE [address] | [address] | | | | | [place], | [place] | | | | | [place] [address] | [place] [address] | | | | | [phone] | [phone] | | | | | | | [...]
--- OUTSIDE RECORDS SUMMARY | ~2020-04-16 | XMS | Encounter Summary ---
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 Take Escitalopram 1/2 tablet a day for [...] given to him by a doctor from [facility]. He complains of increased irritability, impatience, [...] labile mood. He is not jaundiced. HEENT: [place] conjunctivae, anicteric sclerae. No neck vein engorgement. [...] anxiety pill) for you sonya Childers in [place]. Take Escitalopram 1/2 tablet a day for [...] | + +--------+ + + + | JOY LOADING MACHINE OPERATOR REPORT - | | 10/24/2019 | | [...] + | [facility] | [address] | [place] | [phone] | | [facility] | | [address] | | | - LABORATORY | | [...] + + | Performed at: [address] [place] [address], | REFERENCE LAB | | [place], [place] [id number] Edge Trimmer: Mukund Ponce MD, Phone: | [facility] | | [phone] Specimen Comment: This is a corrected | [...] + + + | REFERENCE LAB | [address] | [place], [place] | [phone] | | [facility] | [address] | [address] | | + + + + + [...] [address] | [place] | [phone] | | [facility] | | [address] | | | - LABORATORY | | [...] [address] | [place] | [phone] | | [facility] | | [address] | | | - LABORATORY | | [...] | 0.88 | 0.70 - 1.30 | [facility] | | | | | mg/dL | [facility] | | | | | | MEDICAL | | | | | | CENTER - | | | | | | LABORATORY | | + + + + + + | eGFR, | >60Comment: GLOMERULAR | >=60 | [facility] | | | non- | FILTRATION | mL/min/1.73m2 | [facility] | | | Nepalese | RATE,ESTIMATED | | MEDICAL | | | | mL/min/1.33x5Dixi than | | CENTER - | | [...] [address] | [place] | [phone] | | [facility] | | [address] | | | - LABORATORY | | [...] + | [facility] | [address] | [place] | [phone] | | [facility] | | [address] | | | - LABORATORY | | [...] unspecified provider. | | + + + JOY LOADING MACHINE OPERATOR REPORT - EXTERNAL SCAN (10/24/2019 12:00 AM [...]
--- OUTSIDE RECORDS SUMMARY | ~2020-04-16 | XMS | Encounter Summary ---
Demographics + + + | Address | [address] | | | [place] [address] | + + + | Home Phone [...] Team Providers + +------+ + | Care Stockfeed Miller Name | Role | Phone | + +------+ + | rOly Villavicencio MD | PCP | | + [...] + + | 05/28/ | Telephone | [facility] | Orly Villavicencio | Appointment | | 2019 | | MEDICINE [address] | [address] | | | | | [place], | [place] | | | | | [place] [address] | [place] [address] | | | | | [phone] | | | | | | | [...] other appointment same time. ) [facility] Natalia Hastings RN - 05/28/2019 12:15 PM PDT[05/28/2019 9:02 AM] Calli Lewis D: the 10:15 am patient cancel. do you want me to remove him from the schedule? documented in this en counter Plan of Treatment Not on filedocumented as of this encounter Visit Diagnoses Not on filedocumented in this encounter"
--- OUTSIDE RECORDS SUMMARY | ~2020-04-16 | XMS | Encounter Summary ---
Demographics + + + | Address | [address] | | | [place] [address] | + + + | Home Phone [...] Team Providers + +------+ + | Care Lye Bath Operator Name | Role | Phone | [...] + + | 05/28/ | Telephone | [facility] | Orly Villavicencio | Appointment | | 2019 | | MEDICINE [address] | [address] | | | | | [place], | [place] | | | | | [place] [address] | [place] [address] | | | | | [phone] | | | | | | | [...] other appointment same time. ) FYI elephone [facility] - Natalia Hastings RN - 05/28/2019 12:15 PM PDT[05/28/2019 9:02 AM] Calli Lewis D: the 10:15 am patient cancel. do you want me to remove him from the schedule? documented in this en counter Plan of Treatment Not on filedocumented as of this encounter Visit Diagnoses Not on filedocumented in this encounter"
--- OUTSIDE RECORDS SUMMARY | ~2020-04-16 | XMS | Encounter Summary ---
Demographics + + + | Address | [address] | | | [place] [address] | + + + | Home Phone [...] Team Providers + +------+ + | Care Allergy And Immunology Chief Name | Role | Phone | + +------+ + | Orly Villavicencio MD | PCP | | + +------+ + Encounter Details +--------+ + + + + | Date | Type | Department | Care Team | Description | +--------+ + + + + | 03/22/ | Hospital | [facility] | Orly Villavicencio | Chronic hepatitis C | | 2016 | Encounter | MED CTR LABORATORY | MD [address] | without hepatic coma | | | | [address] [place] | [address] [place] | (HCC) (Primary Dx); | | | | [place], [place] | [place] [address] | Elevated LFTs; | | | | [address] | [phone] | Alcoholism (HCC); | | | | [phone] | | Bilateral leg pain; | | [...] [address] | [place] | [phone] | | [facility] | | [address] | | | - LABORATORY | | [...] | | | | | 2015, the 12NCVR test | | | | | | code for 3rdGeneration | | | | | | HIV testing will no | | | | | | longer be orderable.[facility] | | | | | | will [...] order | | | | | | [id number] to order | | | | | [...] | | | | | may go [employer] to | | | | | | access literature | | | | | | regarding the change in | | | | | | HIVmethodologies. You | | | | | | may also contact [facility] | | | | | | Client Services | | | | | | foradditional | | | | | | information.Testing | | | | | | Performed: [facility], [address] | | | | | | [address], [place] | | | | | | [address] | | | | + + + [...] [address] | [place] [address] | [phone] | + + + + + CK [...] + + | Performing | Address | City/State/[facility] | Phone Number | | Organization | | | | + + + + + | [facility] | [address] | [place] | [phone] | | [facility] | | [address] | | | - LABORATORY | | [...] + | [facility] | [address] | [place] | [phone] | | [facility] | | [address] | | | - LABORATORY | | [...] [place] | | | | | | [place] | | | | | | [...] + | [facility] | [address] | [place] | [phone] | | [facility] | | [address] | | | - LABORATORY | | [...] [address] | [place] | [phone] | | [facility] | | [address] | | | - LABORATORY | | [...] [address] | [place] | [phone] | | [facility] | | [address] | | | - LABORATORY | | [...] ST. | [address] | [place], [place] | [phone] | | [facility] | | [address] | | | - LABORATORY | | [...] + | [facility] | [address] | [place] | [phone] | | [facility] | | [address] | | | - LABORATORY | | [...] | | MEDICAL | | | | mL/min/1.42q0Snkg than | | CENTER - | | [...] | 8.9 | 8.3 - 10.5 | [facility] | | | | | mg/dL | [...] [address] | [place] | [phone] | | [facility] | | [address] | | | - LABORATORY | | [...] [address] | [place] | [phone] | | [facility] | | [address] | | | - LABORATORY | | [...]
--- OUTSIDE RECORDS SUMMARY | ~2020-04-16 | XMS | Encounter Summary ---
Demographics + + + | Address | [address] | | | [place] [address] | + + + | Home Phone | | + + + | Preferred Language | Unknown | + + + | Marital Status | Single | + + + | Yarsanism Affiliation | Unknown | + + + | Race | or | + + + | Ethnic Group | Not or | + + + Author + + + | Author | [facility] | | | and [place] | + + + | Organization | [facility] | | | [...] Team Providers + +------+ + | Care Conditioning Room Worker Name | Role | Phone | [...] + + | 05/02/ | Office | [facility] | Orly Villavicencio | Alcoholism (HCC) | | 2018 | Visit | MEDICINE [address] | [address] | (Primary Dx); | | | | [address] [place] [facility], | [address] [place] | Chronic hepatitis C | | | | [place] [address] | [place] [address] | without hepatic coma | | | | [phone] | [phone] | (HCC); Depression, | | | | [...] in pain or any respiratory distress. HEENT: [place] conjunctivae, yellowish sclerae. No neck vein engorgement. [...] and medication adjustment. Spent 25 minutes in ichm-nk-ukll time with the patient, with greater than [...] | | | enlarged. Splenomegaly likely patient representative of portal venous | | | [...] | | | | Splenomegaly likely patient representative of portal venous hypertension. | | [...] [address] | [place] | [phone] | | [facility] | | [address] | | | - LABORATORY | | [...] + + | Performing | Address | City/State/[facility] | Phone Number | | Organization | | | | + + + + + | [facility] | [address] | [place] | [phone] | | [facility] | | [address] | | | - LABORATORY | | [...] | | | | mmol/L | [facility] | | | | | | MEDICAL [...] | | | | | | [facility] | | | | | | MEDICAL [...] (L) | 7 - 18 mg/dL | [place] | | | | | | [facility] | | | | | | MEDICAL | | | | | | CENTER - | | | | | | LABORATORY | | + + + + + + | Creatinine | 0.69 | 0.60 - 1.30 | [place] | | | | | mg/dL | [facility] | | | | | | MEDICAL | | | | | | CENTER - | | | | | | LABORATORY | | + + + + + + | eGFR, | >60Comment: GLOMERULAR | >=60 | [facility] | | | non- | FILTRATION | mL/min/1.73m2 | [facility] | | | Beninese | RATE,ESTIMATED | | MEDICAL | | | | mL/min/1.00p0Fjqu than | | CENTER - | | [...] ST. | [address] | [place] | [phone] | | [facility] | | [address] | | | - LABORATORY | | [...] [address] | [place] | [phone] | | [facility] | | [address] | | | - LABORATORY | | [...]
--- OUTSIDE RECORDS SUMMARY | ~2020-04-16 | XMS | Encounter Summary ---
Demographics + + + | Address | [address] | | | [place] [address] | + + + | Home Phone [...] Team Providers + +------+ + | Care Civil Process Server Name | Role | Phone | + [...] + + | 04/07/ | Telephone | [facility] | Orly Villavicencio | Appointment | | 2014 | | MEDICINE [address] | [address] | | | | | [place], | [place] | | | | | [place] [address] | [place] [address] | | | | | [phone] | | | | | | | [...] PM PDTHeather El ectronically signed by Toya Yrok at 04/15/2015 3:03 PM PDTTelephone Encounter - [...] number for Linh smith girlfriend Lesia at [phone] to contact. elephone Encounter - Toya [place] [...]
--- OUTSIDE RECORDS SUMMARY | ~2020-04-16 | XMS | Encounter Summary ---
Demographics + + + | Address | [address] | | | [place] [address] | + + + | Home Phone [...] Team Providers + +------+ + | Care Midwife Practitioner Name | Role | Phone | + [...] vomiting, | MD Shimon | [address], | | | | | intractabili | [address] | [address] | | | | | ty of | [place], | | | | | vomiting not | [place], [place] | [place] [address] | | | | | specified, | [address] | Phone: | | | | | unspecified | Phone: | [phone] | | | | | vomiting | [phone] | Fax: | | | | | type | Fax: | [phone] | | | | | Hepatic | [phone] | | | | | | cirrhosis, [...] + + | 04/25/ | Telephone | [facility] | Orly Villavicencio | Results | | 2018 | | [facility] [address] | [address] | | | | | [place], | [address] | | | | | [place] [address] | [place] [address] | | | | | [phone] | [phone] | | | | | | | [...] helpful. Thanks. elephone En counter - Nay Skyes RN - 04/26/2019 1:52 PM PDTSpoke with [...] let us know. She states she will sweet pickle maker medi cation and help him take this [...] + + +--------+ + + | * [facility] [place] | Outpatient | Routin | Nausea [...]
--- OUTSIDE RECORDS SUMMARY | ~2020-04-16 | XMS | Encounter Summary ---
Demographics + + + | Address | [address] | | | [place] [address] | + + + | Home Phone | | + + + | Preferred Language | Unknown | + + + | Marital Status | Single | + + + | Hoahaoism Affiliation | NON | + + + | Race | or | + + + | Ethnic Group | Not or | + + + Author + + + | Author | [facility] | + + + | Organization | [facility] | + + + | Address | Unknown | + + + | Phone | Unavailable | + + + Support + + +---------+ + | Name | Relationship | Address | Phone | + + +---------+ + | Kacey Holcomb | ECON | Unknown | | + + +---------+ + Care Team Providers + +------+ + | Care Direct Entry Midwife Name | Role | Phone | + [...] | Cervical Fx | Epic Dept | [address] | | | | Orthopedics | Procedures | | [address] | | | | | [place] | | [place] | | | | | OFFICE/OUTPT | | [place], [place] | | | | | | | [address] | | | | | VISIT,EST,LE | | Phone: | | | | | VL III | | [phone] | | | | | | | Fax: | | | | | | | [phone] | +--------+--------+ + + + + Encounter Details +--------+---------+ + + + | Date | Type | Department | Care Team | Description | +--------+---------+ + + + | 10/18/ | Office | Orthopaedic Spine | Chino Navas MD | Vertebral Fracture | | 2007 | Visit | Center at [facility] [address] | [address] | (Primary Dx) | | | | [address] | [place], | | | | | Mailcode: CH8N | [place] [address] | | | | | [facility] | [phone] | | | | | and [place], | | | | | | [facility] | | | | | | [place], [place] | | | | | | [address] | | | | | | [phone] | | | +--------+---------+ + + + [...]
--- OUTSIDE RECORDS SUMMARY | ~2020-04-16 | XMS | Encounter Summary ---
Demographics + + + | Address | [address] | | | [place] [address] | + + + | Home Phone [...] Team Providers + +------+ + | Care Brokerage Office Manager Name | Role | Phone | [...] + + | 05/02/ | Telephone | [facility] | Orly Villavicencio | Results | | 2018 | | MEDICINE [address] | [address] | | | | | [place], | [address] [place] | | | | | [place] [address] | [place] [address] | | | | | [phone] | | | | | | | [...] mL/min/1.73m2 | [facility] | | | Swedish | RATE,ESTIMATED | | MEDICAL | | | | mL/min/1.81h7Gecv than | | CENTER - | | [...] [address] | [place] | [phone] | | [facility] | | [address] | | | - LABORATORY | | | | + + + + + documented in this encounter Visit Diagnoses + + | Diagnosis | + + | Chronic hepatitis C without hepatic coma (HCC) - Primary | + + documented in this encounter"
--- OUTSIDE RECORDS SUMMARY | ~2020-04-16 | XMS | Encounter Summary ---
Demographics + + + | Address | [address] | | | [place] [address] | + + + | Home Phone [...] Providers + +------+ + | Care Asphalt Engineer Name | Role | Phone | [...] | 02/24/ | Refill | [facility] | Orly Villavicencio | Medication Refill | | 2017 | | [facility] [address] | [address] | | | | | [place], | Arna[address] [facility] | | | | | [place] [address] | [facility] [place] [place] [address] | | | | | [phone] | [phone] | | | | | | | [...]
--- OUTSIDE RECORDS SUMMARY | ~2020-04-16 | XMS | Encounter Summary ---
Demographics + + + | Address | [address] | | | [place] [address] | + + + | Home Phone | | + + + | Preferred Language | Unknown | + + + | Marital Status | Single | + + + | Nondenominational Affiliation | Unknown | + + + [...] Team Providers + +------+ + | Care Bottom Bleacher Name | Role | Phone | + +------+ + | Orly Villavicencio MD | PCP | | + +------+ + Encounter Details +--------+ + + + + | Date | Type | Department | Care Team | Description | +--------+ + + + + | 06/29/ | Hospital | [facility] | Lesia Nagel, | | | 2016 | Encounter | MED CTR [facility] [place] | Need updated | | | | | [address] | address | | | | | [place] | | | | | | [address] | | | | | | [phone] | | | +--------+ + + + [...] [address] | [place] | [phone] | | [facility] | | [address] | | | - IMAGING | | | | + + + + + documented in this encounter Visit Diagnoses Not on filedocumented in this encounter"
--- OUTSIDE RECORDS SUMMARY | ~2020-04-16 | XMS | Encounter Summary ---
Demographics + + + | Address | [address] | | | [place] [address] | + + + | Home Phone [...] Team Providers + +------+ + | Care Entry Level Mechanical Engineer Name | Role | Phone | [...] + + | 03/23/ | Telephone | [facility] | Orly Villavicencio | Medication Prior | | 2015 | | MEDICINE [address] | MD [address] | Authorization | | | | [place], | Arna[place] [facility] | (Triamcinalone | | | | [place] [address] | [place] [address] | lotion) | | | | [phone] | [phone] | | | | | | | [...] encounter Miscellaneous Notes Telephone Encounter - Yusra Caretr RN - 03/24/2016 10:39 AM PDTPrescription updated El ectronically signed by Yusra Carter RN at 03/24/2016 10:39 AM PDTTelephone Encounter - Orly Lobo MD - 03/23/2016 12:40 PM PDTPlease change Rx to cream. Thanks. elephone En counter - Yusra Carter RN - 03/23/2016 9:54 AM PDTReceived prior authorization request : Insurance name: [facility] Insurance phone: Medication and Strength: Triamcinolone Lotion [...]
--- OUTSIDE RECORDS SUMMARY | ~2020-04-16 | XMS | Encounter Summary ---
Demographics + + + | Address | [address] | | | [place] [address] | + + + | Home Phone [...] Team Providers + +------+ + | Care Correction Officer [place] [facility] Name | Role | Phone | + +------+ + | Orly Villavicencio MD | PCP | | + +------+ + Encounter Details +--------+ + + + + | Date | Type | Department | Care Team | Description | +--------+ + + + + | 06/29/ | Hospital | [facility] | Lesia Nagel, | | | 2016 | Encounter | [facility] [place] | Need updated | | | | | [address] | address | | | | | [place] | | | | | | [address] | | | | | | [phone] | | | +--------+ + + + [...] [address] | [place] | [phone] | | [facility] | | [address] | | | - IMAGING | | | | + + + + + documented in this encounter Visit Diagnoses Not on filedocumented in this encounter"
--- OUTSIDE RECORDS SUMMARY | ~2020-04-16 | XMS | Encounter Summary ---
Demographics + + + | Address | [address] | | | [place] [address] | + + + | Home Phone [...] Team Providers + +------+ + | Care Car Groomer Name | Role | Phone | + [...] + + | 11/27/ | Telephone | [facility] | Orly Villavicenc[facility] | Results | | 2019 | | MEDICINE [address] | MD [address] | | | | | [place], | [address] | | | | | [place] [address] | [place] [address] | | | | | [phone] | [phone] | | | | | | | [...] has some on hand. Spironolactone sent to [facility] in [place]. He is taking the escitalopram as advised. F/u scheduled as advised. Patient agrees to date and time. He confirms best number to chino ch him is . elephone Encounter - Orly Villavicencio MD - 11/28/2019 6:47 AM PDTNew phone num erick: [phone] (if this does not work, try [phone]). Please let patient know labs showed: His [...]
--- OUTSIDE RECORDS SUMMARY | ~2020-04-16 | XMS | Encounter Summary ---
Demographics + + + | Address | [address] | | | [place] [address] | + + + | Home Phone [...] Team Providers + +------+ + | Care Hide Paster Name | Role | Phone | + [...] + + | 04/06/ | Emergency | [facility] | Abhijit Cuevas, | Right upper quadrant | | 2015 - | | MED CTR EMERGENCY | MD [address] | abdominal pain | | | | CENTER [address] | [facility] [place] | (Primary Dx); | | 04/07/ | | [place]LE[place] Guzman | [place] [address] | Alcoholic hepatitis | | 2014 | | [address] | [phone] | without ascites; | | | | [phone] | | Alcoholic cirrhosis | | | [...] be sent through Care Everywhere.ALCOHOL WITHDRA HURT (SLOVENIAN)ALCOHOLISM: GETTING HELPCIRRHOSIS (SLOVENIAN)documented in this encounter Medications at Time of [...] Lezama MD - 04/06/2015 11:08 PM PDT [facility] Emergency Department Encounter Note [address] [place] [address] PCP:No Physician on file [phone] CHIEF COMPLAINT [...] daily. No f ood today. He took cikw-cvy-imzozke water pill and tzec-ubk-dwiutgd stomach pill from [employer] today without improvement. He is accompanied by [...] day. Specialty: Internal Medicine Contact information: [address] [facility] [address] Follow up with Alex Gama MD. Specialty: Gastroenterology Contact information: [address] [facility] [address] [phone] Discharge Medication List as of 04/07/2015 [...] [address] | [place] | [phone] | | [facility] | | [address] | | | - LABORATORY | | [...] + | [facility] | [address] | [place], [place] | [phone] | | [facility] | | [address] | | | - LABORATORY | | [...] [address] | [place] | [phone] | | [facility] | | [address] | | | - LABORATORY | | [...] + | [address] [facility] | [address] | [place] | [phone] | | [facility] | | [address] | | | - LABORATORY | | [...] + | [facility] | [address] | [place] | [phone] | | [facility] | | [address] | | | - LABORATORY | | [...] mL/min/1.73m2 | [facility] | | | [place]ian | RATE,ESTIMATED | | MEDICAL | | | | mL/min/1.47r6Qsmh than | | CENTER - | | [...] [address] | [place] | [phone] | | [facility] | | [address] | | | - LABORATORY | | [...] | | | Cells | | | [facility] | | | | | | MEDICAL | | | | | | CENTER - | | | | | | LABORATORY | | + + + + + + | Red Blood | 4.79 | 4.30 - 5.70 | [facility] | | | Cells | | M/uL | [facility] | | | | | | MEDICAL [...] [address] | [place] | [phone] | | [facility] | | [address] | | | - LABORATORY | | [...]
--- OUTSIDE RECORDS SUMMARY | ~2020-04-16 | XMS | Encounter Summary ---
Demographics + + + | Address | [address] | | | [place] [address] | + + + | Home Phone [...] Team Providers + +------+ + | Care Hydrochloric Manufacturing Supervisor Name | Role | Phone | [...] + + | 09/24/ | Emergency | [facility] | Filiberto Yan, | Chest wall | | 2018 - | | MED CTR EMERGENCY | MD [address] | contusion, left, | | | | CENTER [address] | [place] | initial encounter | | 09/25/ | | [place] | [address] | (Primary Dx) | | 2018 | | [address] | | | | | | [phone] | | | +--------+ + + + [...] sent through Care Everywhere.Chest Wall Cont usion (Georgian)documented in this encounter Medications at Time of [...] on file Social History Narrative Born in [place]. Lives with girlfriend lidia. Has 1 [...] Bilateral external ears normal, Oral mucosa moist, peer health promoter ior pharynx no exudates, Nose normal. Neck-supple, [...] by me Rhythm: normal sinus Rate: normal Elcho: normal Ectopy: none Conduction: normal ST Segments: [...] Internal Medicine Why: As needed Contact information: [address] [place] [address] Discharge Medication List as of 09/24/2017 23:57 [...] | | | | TONIE BENOIT MD ([id number]) | | | | | | on [...]
--- OUTSIDE RECORDS SUMMARY | ~2020-04-16 | XMS | Encounter Summary ---
Demographics + + + | Address | [address] | | | [place] [address] | + + + | Home Phone [...] Author + + + | Author | [facility] | | | and [place] | + + + | Organization | [facility] | | [...] Team Providers + +------+ + | Care Memorial Adviser Name | Role | Phone | + +------+ + | Orly Villavicencio MD | PCP | | + +------+ + Encounter Details +--------+ + + + + | Date | Type | Department | Care Team | Description | +--------+ + + + + | 04/17/ | Hospital | [facility] | Orly Villavicencio | Alcoholic hepatitis | | 2015 | Encounter | MED CTR LABORATORY | MD [address] | without ascites | | | | [address] [place] | [place] | | | | | [place], [place] | [place] [address] | | | | | [address] | [phone] | | | | | [phone] | | | +--------+ + + + [...] | [facility] | | | | [id number] or greater | | | | | [...] [place] | | | | | | [address] | | | | + + + + + + + + | Specimen | + + | Blood specimen | | (specimen) | + + + + + + + | Performing | Address | City/State/Zipcode | Phone Number | | Organization | | | | + + + + + | [facility] | [address] | [place] [address] | [phone] | + + + + + Ammonia [...] [address] | [place] | [phone] | | [facility] | | [address] | | | - LABORATORY | | [...] [address] | [place] | [phone] | | [facility] | | [address] | | | - LABORATORY | | [...] | mL/min/1.73m2 | [facility] | | | [place] | RATE,ESTIMATED | | MEDICAL | | | | mL/min/1.21j7Txnr than | | CENTER - | | [...] + | [facility] | [address] | [place] | [phone] | | [facility] | | [address] | | | - LABORATORY | | [...] [address] | [place] | [phone] | | [facility] | | [address] | | | - LABORATORY | | | | + + + + + documented in this encounter Visit Diagnoses + + | Diagnosis | + + | Alcoholic hepatitis without ascites Acute alcoholic hepatitis | + + documented in this encounter
--- OUTSIDE RECORDS SUMMARY | ~2020-04-16 | XMS | Clinical Summary ---
Demographics + + + | Address | [address] | | | [place] [address] | + + + | Home Phone [...] Team Providers + +------+ + | Care Research Advisor Name | Role | Phone | + [...] +---------+--------+ | [place]ICA[place] | MEDICA | [id number] | 09/24/19 | [phone] | | Medica [...] Tariq | Self | [birth year] | [address] | | [place] | jhonny/King | | 1956 | [phone] | [place] [address] | | | alex | | | 2 (Home) | | + +--------+ +--------+ + + Advance Directives + + + + + | Type | Date Recorded | Patient | Explanation | | | | Work Order Detailer | | + + + + + | Power of | | | | | Property Management Supervisor | | | | + + + + + | Advance | 04/06/2015 11:45 | | | | Directive | PM | | | + + + + +
--- OUTSIDE RECORDS SUMMARY | ~2020-04-16 | XMS | Encounter Summary ---
Demographics + + + | Address | [address] | | | [place] [address] | + + + | Home Phone [...] + + | Author | [facility] | | | and [place] | + + + | Organization | [facility] | | | [...] Team Providers + +------+ + | Care Conveyor Installer Name | Role | Phone | + [...] + + | 11/22/ | Telephone | [facility] | Orly Villavicencio | Appointment | | 2020 | | MEDIC[address] | MD [address] | | | | | [place], | [address] [place] | | | | | [place] [address] | [place] [address] | | | | | [phone] | | | | | | | [...]
--- OUTSIDE RECORDS SUMMARY | ~2020-04-16 | XMS | Encounter Summary ---
Demographics + + + | Address | [address] | | | [place] [address] | + + + | Home Phone [...] Author + + + | Author | [facility] | | | and [place] | + + + | Organization | [facility] | | [...] Team Providers + +------+ + | Care Rn Clinical Trials Name | Role | Phone | + +------+ + | Orly Villavicencio MD | PCP | | + +------+ + Encounter Details +--------+ + + + + | Date | Type | Department | Care Team | Description | +--------+ + + + + | 03/26/ | Hospital | [facility] | Orly Villavicencio | Hepatitis C virus | | 2016 | Encounter | MED CTR LABORATORY | MD [address] | infection without | | | | [address] [place] | [address] [place] | hepatic coma, | | | | [place], [place] | [place] [address] | unspecified | | | | [address] | [phone] | chronicity; Abnormal | | | | [phone] | | LFTs | +--------+ + + [...] + + + | HCV Viral | [id number] (A)Comment: | NOTDET IU/mL | REFERENCE | [...] [place] | | | | | | [address] | | | | + + + [...] [address] | [place] [address] | [phone] | + + + + + HIV [...] order | | | | | | [id number] to order | | | | | [...] | | | | | may go [email or web address] to | | | | | | access literature | | | | | | regarding the change in | | | | | | HIVmethodologies. You | | | | | | may also contact [employer] | | | | | | Client Services | | | | | | foradditional | | | | | | information.Testing | | | | | | Performed: [facility], [address] | | | | | | [address], [place] | | | | | | [address] | | | | + + + + + + + + | Specimen | + + | Blood specimen | | (specimen) | + + + + + + + | Performing | Address | City/State/Zipcode | Phone Number | | Organization | | | | + + + + + | [facility] | [address] | [place] [address] | [phone] | + + + + + Ammonia [...] [address] | [place] | [phone] | | [facility] | | [address] | | | - LABORATORY | | [...] | non- | FILTRATION | mL/min/1.73m2 | [facility] | | | Ethiopian | RATE,ESTIMATED | | MEDICAL | | | | mL/min/1.08m9Tyim than | | CENTER - | | [...] | | | | | mg/dL | [facility] | | | | | | MEDICAL [...] ST. | [address] | [place], [place] | [phone] | | [facility] | | [address] | | | - LABORATORY | | | | + + + + + documented in this encounter Visit Diagnoses + + | Diagnosis | + + | Hepatitis C virus infection without hepatic coma, unspecified chronicity | + + | Abnormal LFTs Other abnormal blood chemistry | + + documented in this encounter"
--- OUTSIDE RECORDS SUMMARY | ~2020-04-16 | XMS | Encounter Summary ---
Demographics + + + | Address | [address] | | | [place] [address] | + + + | Home Phone [...] Team Providers + +------+ + | Care Kitchenwhere Maker Name | Role | Phone | + +------+ + | Orly Villavicencio MD | PCP | | + +------+ + Encounter Details +--------+ + + + + | Date | Type | Department | Care Team | Description | +--------+ + + + + | 11/25/ | Hospital | [facility] | Orly Villavicencio | Community acquired | | 2020 | Encounter | MED CTR ARNAUD XRAY | MD [address] | pneumonia of left | | | | [address] [place] | [address] [place] | lung, unspecified | | | | [place], [place] | [place] [address] | part of lung | | | | [address] | [phone] | | | | | [phone] | | | +--------+ + + + [...]
--- OUTSIDE RECORDS SUMMARY | ~2020-04-16 | XMS | Encounter Summary ---
Demographics + + + | Address | [address] | | | [place] [address] | + + + | Home Phone [...] Author + + + | Author | [facility] | + + + | Organization | [facility] | + + + | Address | Unknown | + + + | Phone | Unavailable | + + + Support + + +---------+ + | Name | Relationship | Address | Phone | + + +---------+ + | Kacey Holcomb | ECON | Unknown | | + + +---------+ + Care Team Providers + +------+ + | Care Materials Management Manager Name | Role | Phone | [...] | 2007 | Visit | Center at [facility] [address] | [address] | (Primary Dx) | | | | [address] | [place], | | | | | Mailcode: CH8N | [place] [address] | | | | | [facility] | [phone] | | | | | and Healing, | | | | | | Building [address] | | | | | | Floor [place], [place] | | | | | | [address] | | | | | | [phone] | | | +--------+---------+ + + + [...]
--- OUTSIDE RECORDS SUMMARY | ~2020-04-16 | XMS | Encounter Summary ---
Demographics + + + | Address | [address] | | | [place] [address] | + + + | Home Phone [...] + + + | Author | [facility] | | | and [place] | + + + | Organization | [facility] [...] Providers + +------+ + | Care Supervisor Packing Name | Role | Phone | + [...] | 08/08/ | Refill | [facility] | Orly Villavicencio | Medication Refill | | 2019 | | [address] | [address] | | | | | [place], | [address] [place] | | | | | [place] [address] | [place] [address] | | | | | [phone] | [phone] | | | | | | | [...]
--- OUTSIDE RECORDS SUMMARY | ~2020-04-16 | XMS | Encounter Summary ---
Demographics + + + | Address | [address] | | | [place] [address] | + + + | Home Phone | | + + + | Preferred Language | Unknown | + + + | Marital Status | Single | + + + | Catholic Affiliation | Unknown | + + [...] Team Providers + +------+ + | Care Auto Body Straightener Name | Role | Phone | + +------+ + | Orly Villavicencio MD | PCP | | + +------+ + Encounter Details +--------+ + + + + | Date | Type | Department | Care Team | Description | +--------+ + + + + | 05/12/ | Hospital | [facility] | SaudBreannaOrly Daria | Chronic hepatitis C | | 2018 | Encounter | MED CTR ULTRASOUND | MD [address] | without hepatic coma | | | | [address] [place] | [address] [place] | (HCC); Alcoholism | | | | [place], [place] | [place] [address] | (HCC); Ascites due | | | | [address] | [phone] | to alcoholic | | | | [phone] | | hepatitis | +--------+ + + [...] mildly | | | enlarged. Splenomegaly likely front office representative of portal venous | | | [...] enlarged. | | | | Splenomegaly likely front office representative of portal venous hypertension. | | [...]
--- OUTSIDE RECORDS SUMMARY | ~2020-04-16 | XMS | Encounter Summary ---
Demographics + + + | Address | [address] | | | [place] [address] | + + + | Home Phone [...] Providers + +------+ + | Care Service Learning Coordinator Name | Role | Phone | [...] + + | 04/06/ | Emergency | [facility] | Abhijit Cuevas, | Right upper quadrant | | 2015 - | | MED CTR EMERGENCY | MD [address] | abdominal pain | | | | CENTER [address] | [facility] [place] | (Primary Dx); | | 04/07/ | | [place] Guzman | [place] [address] | Alcoholic hepatitis | | 2014 | | [address] | [phone] | without ascites; | | | | [phone] | | Alcoholic cirrhosis | | | [...] be sent through Care Everywhere.ALCOHOL WITHDRA HURT (LITHUANIAN)ALCOHOLISM: GETTING HELPCIRRHOSIS (LITHUANIAN)documented in this encounter Medications at Time of [...] of ED independently w/ steady gait. Abhijit Leazma MD - 04/06/2015 11:08 PM PDT [facility] Emergency Department Encounter Note [address] [place] [address] PCP:No Physician on file [phone] CHIEF COMPLAINT [...] daily. No f ood today. He took uwzz-qgy-bvfffjv water pill and zgbj-ozu-hsqmgan stomach pill from [employer] today without improvement. He is accompanied by [...] day. Specialty: Internal Medicine Contact information: [address] [facility] [address] Follow up with Alex Gama MD. Specialty: Gastroenterology Contact information: [address] [facility] [address] [phone] Discharge Medication List as of 04/07/2015 [...] [address] | [place] | [phone] | | [facility] | | [address] | | | - LABORATORY | | [...] + | [facility] | [address] | [place], [place] | [phone] | | [facility] | | [address] | | | - LABORATORY | | [...] [address] | [place] | [phone] | | [facility] | | [address] | | | - LABORATORY | | [...] + | [facility] [facility] | [address] | [place] | [phone] | | [facility] | | [address] | | | - LABORATORY | | [...] + | [facility] | [address] | [place] | [phone] | | [facility] | | [address] | | | - LABORATORY | | [...] mL/min/1.73m2 | [facility] | | | [place] | RATE,ESTIMATED | | MEDICAL | | | | mL/min/1.22i6Wnfc than | | CENTER - | | [...] [address] | [place] | [phone] | | [facility] | | [address] | | | - LABORATORY | | [...] | | | Cells | | | [facility] | | | | | | MEDICAL | | | | | | CENTER - | | | | | | LABORATORY | | + + + + + + | Red Blood | 4.79 | 4.30 - 5.70 | [facility] | | | Cells | | M/uL | [facility] | | | | [...] [address] | [place] | [phone] | | [facility] | | [address] | | | - LABORATORY | | [...]
--- OUTSIDE RECORDS SUMMARY | ~2020-04-16 | XMS | Encounter Summary ---
Demographics + + + | Address | [address] | | | [place] [address] | + + + | Home Phone [...] Team Providers + +------+ + | Care Refrigerator Crater Name | Role | Phone | + [...] + + | 05/12/ | Telephone | [facility] | Orly Villavicencio | Results | | 2018 | | [address]IC[address] | [address] | | | | | [place], | [address] | | | | | [place] [address] | [place] [address] | | | | | [phone] | [phone] | | | | | | | [...] of results and recommendations. She agrees to poultry picking machine tender spironolactone, notified this would be a new [...] + + + | Performed at: - [place] [address], | REFERENCE LAB | | [place], [place] [id number] Tool Lathe Operator: Mukund Ponce MD, Phone: | [facility] | | [phone] | | + + + + + + + + | Performing | Address | City/State/Zipcode | Phone Number | | Organization | | | | + + + + + | REFERENCE LAB | [address] | [place], [place] | [phone] | | [facility] | Drive [facility] | [address] | | + + + + + [...] | mL/min/1.73m2 | [facility] | | | [place]ian | RATE,ESTIMATED | | MEDICAL | | | | mL/min/1.03l3Agcu than | | CENTER - | | [...] | | | | mg/dL | [facility] | | | | | | [...] [address] | [place] | [phone] | | [facility] | | [address] | | | - LABORATORY | | | | + + + + + documented in this encounter Visit Diagnoses + + | Diagnosis | + + | Hepatic cirrhosis, unspecified hepatic cirrhosis type, unspecified whether ascites | | present (HCC) - Primary | + + documented in this encounter"
--- OUTSIDE RECORDS SUMMARY | ~2020-04-16 | XMS | Encounter Summary ---
Demographics + + + | Address | [address] | | | [place] [address] | + + + | Home Phone [...] Author + + + | Author | [facility] | | | and [place] | + + + | Organization | [facility] | | [...] Team Providers + +------+ + | Care Mechanical Maintenance Name | Role | Phone | + +------+ + | Orly Villavicencio MD | PCP | | + +------+ + Encounter Details +--------+ + + + + | Date | Type | Department | Care Team | Description | +--------+ + + + + | 06/01/ | Hospital | [facility] | Orly Villavicencio | Hepatic cirrhosis, | | 2018 | Encounter | MED CTR [facility]UD XRAY | MD [address] | unspecified hepatic | | | | [address] [place] | [address] [place] | cirrhosis type, | | | | [place], [place] | [place] [address] | unspecified whether | | | | [address] | [phone] | ascites present | | | | [phone] | | (HCC) | +--------+ + + [...]
[~2020-04-16 11:41] MED LIST changes: +FUROSEMIDE40 MG PO; +LORAZEPAM1 MG PO; +NORTRIPTYLINE H25 MG PO
--- OUTSIDE RECORDS SUMMARY | 2020-04-16 11:44 | XMS ---
PreManage Notification: SACHI MURPHY Security Silk Screen Cutter Events No recent Security Events currently on file CRITERIA MET - History of Sepsis Dx - PDMP CARE PROVIDERS BRITTANEY MARTÍNEZ Internal Medicine Current PHONE: [phone] Vania has no Care Guidelines for this patient. E.Kim VISIT COUNT (12 MO.) 1 Guillermina Veronica M.C. 2 JINNY Mistry TOTAL 3 NOTE: Visits indicate total known visits. ED/UCC VISIT TRACKING (12 MO.) 04/16/2020 11:42 JINNY Linder TYPE: Emergency COMPLAINT: - L LEG SWOLLEN 10/23/2019 17:23 JINNY Linder TYPE: Emergency COMPLAINT: - FLU SYMPTOMS [facility]2019 [facility] DIAGNOSES: - Detox - Alcohol abuse, uncomplicated - Major depressive disorder, single episode, unspecified - Detox Evaluation INPATIENT VISIT TRACKING (12 MO.) 10/24/2019 02:17 Moraima Ocampo AmandaRodger Law [place] TYPE: Medical Surgical COMPLAINT: - CHEST PAIN, RESPIRATORY FAILURE DIAGNOSES: 0. Altered mental status, unspecified 1. Sepsis, unspecified organism 2. Severe sepsis with septic shock 3. Acute respiratory failure with hypercapnia 4. Pneumonia, unspecified organism 5. Acute respiratory failure with hypoxia 6. Metabolic encephalopathy 7. Pneumonitis due to inhalation of food and vomit 8. Hypo-osmolality and hyponatremia 9. Body mass index (BMI) 40.0-44.9, adult 10. Acidosis 11. Rhabdomyolysis 12. Hyperosmolality and hypernatremia 13. Moderate protein-calorie malnutrition 14. Nicotine dependence, cigarettes, uncomplicated 15. Alcohol dependence, uncomplicated 16. Nonspecific elevation of levels of transaminase and lactic ac 17. Morbid (severe) obesity due to excess calories 18. Thrombocytopenia, unspecified 19. Unspecified atrial fibrillation 20. Other staphylococcus as the cause of diseases classified else 21. Streptococcus pneumoniae as the cause of diseases classified 22. Dysphagia, unspecified 23. 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
--- NOTE | 2020-04-16 20:10 | NUR ---
ASSISTED PT TO BSC WITH PRIMARY RN RASHID. HE IS NOW BACK IN BED WITH FRESH ICEWATER AT BEDSIDE. RASHID RN IS IN ROOM WITH PT AT THIS TIME.
--- NOTE | 2020-04-16 20:22 | NUR ---
IN TO ASSESS PT, HAD MISSED URINAL AND URINATED ON FLOOR. IS COOPERATIVE BUT SL IMPULSIVE. DISORIENTED TO MONTH AND DAY. CAN STATE REASON FOR HOSPITALIZATION IS BAD LEG. ASSISTED TO BSC THOUGHT NEEDED TO HAVE BM. DID VOID SMALL AMT URINE. SL UNSTEADY ON FEET. DOES HAVE MILD VISABLE TREMORS OF HANDS/ARMS. TAKING WATER AND JELLO WELL. REQUESTING NICOTINE PATCH. T 102.8, GIVEN 30MG TORRADOL PO.
--- NOTE | 2020-04-16 21:12 | NUR ---
PT EXPRESSING NEED TO GET UP. ASSISTED TO COMMODE HAD SMALL STOOL AND VOIDED ON FLOOR. IS COOPERATIVE BUT FORGETFUL. VERY DIAPHORETIC. PILLOW CASE CHANGED. T 100.2
--- NOTE | 2020-04-16 21:54 | NUR ---
ADMINISTERED IV FLAGYL FOR PRIMARY RN RASHID. PT IS RESTING WITH EYES CLOSED, RR ARE EVEN AND NONLABORED. CALL LIGHT IS CLOSE AND IV IS INFUSING FINE.
--- NOTE | 2020-04-16 23:30 | NUR ---
SLEEPING, SNORING SOFTLY.
--- NOTE | 2020-04-17 00:21 | NUR ---
AWAKENED WHEN OXYMETER REAPPLIED. T 98.2, ASKED TO HAVE BLANKET BACK OVER HIM. 02 OUT OF NOSE, SAT 90%, IN TO 94 WHEN PUT BACK. BACK TO SLEEP.
--- NOTE | 2020-04-17 01:15 | NUR ---
STOOD AT BEDSIDE TO VOID IN COMMODE. MILDLY UNSTEADY ON FEET. T 99.3. DENIES PAIN IN LEG.
--- NOTE | 2020-04-17 02:05 | NUR ---
AWAKENED FOR LIBRIUM. NO C/O AND BACK TO SLEEP.
--- NOTE | 2020-04-17 05:09 | NUR ---
PT USED CALL LIGHT APPROPRIATLY TO SEE ABOUT GETTIN UP T O VOID. IS STEADIER OF FEET. IS MORE ALERT BUT DOES NEED REINFORCMENT ON ILLNESS AND TX.
--- NOTE | 2020-04-17 06:41 | NUR ---
SLEEPING, NO CHANGE.
--- NOTE | 2020-04-17 08:17 | NUR ---
IV SITE IS INTACT, NO REDNESS OR SWELLING NOTED, FLUIDS INFUSE EASILY. PT DENIES PAIN, NAUSEA, AND SOB. VITALS ARE WNL. BREAKFAST ORDERED FOR PT.
--- NOTE | 2020-04-17 09:17 | NUR ---
PT UP TO THE BEDSIDE COMMODE WITH MINIMAL ASSIST. DRAW SHEET CHANGED. PT BACK TO BED. PT STATES "I WISH I COULD HAVE SOME PEACE AND QUIET", PT IS COOPERATIVE AND POLITE HOWEVER.
--- NOTE | 2020-04-17 10:36 | NUR ---
LAB IN THE ROOM TO DRAW BLOOD CULTURES AND OTHER SAMPLES. PT WAKES WHEN SPOKEN TO. PT ABLE TO TAKE PO PILLS EASILY, JOKES AND LAUGHES WITH STAFF, IN GENERAL IS PLEASANT. PT STILL DENIES PAIN, NAUSEA, AND SOB.
--- NOTE | 2020-04-17 11:00 | NUR ---
PATIENT SLEEPING. WILL CHECK BACK LATER.
--- NOTE | 2020-04-17 11:44 | NUR ---
PT SLEEPING AT THIS TIME. VITALS ARE WNL.
--- NOTE | 2020-04-17 13:44 | NUR ---
ATTEMPTED TO TALK WITH PT ABOUT RECEIVING ANOTHER IV SITE WITH ULTRASOUND. PT STATES, "WHAT'S WRONG WITH THIS IV?" DISCUSSED WITH PT ABOUT RECEIVING A BETTER IV IN A BETTER LOCATION. PT STATES, "NO. I AM GOOD WITH THIS IV". PT'S RN NOTIFIED.
--- NOTE | 2020-04-17 14:00 | NUR ---
PATIENT SLEEPING. STAFF REQUEST HE BE LEFT TO SLEEP. WILL CHECK BACK LATER.
--- NOTE | 2020-04-17 14:05 | NUR ---
PT SWITCHED FROM NASAL CANULA 2L TO OXYMASK 2L DUE TO MOUTH BREATHING WITH SLEEP.
--- NOTE | 2020-04-17 14:20 | NUR ---
PT WAKES EASILY, ABLE TO TAKE PO PILLS. PT DENIES PAIN, NAUSEA, AND SOB. IV SITE IS INTACT, FLUIDS INFUSE EASILY, PT DENIES PAIN AT THE SITE. PT DISCOVERED A LARGE BLISTER ON THE BACK OF HIS LEFT CALF, AND STATES IT WAS NOT THERE EARLIER/YESTERDAY, PT DENIES PAIN AT THE SITE. THE BLISTER IS APPROXIMATLY 2 INCHES ACROSS AND INTACT.
[2020-04-17] MEDS ORDERED: ESCITALOPRAM OX10 MG PO (15:25)
[2020-04-17] MEDS ORDERED: ALDACTONE50 MG PO (15:27)
--- NOTE | 2020-04-17 19:30 | NUR ---
SHIFT REPORT RECEIVED FROM NEETA LUKE. PT AWAKE AND RESTING IN BED, APPEARS COMFORTABLE. BLISTER TO LEFT CALF POPPED PER TI SANTACRUZ, WITH HELP FROM HER ALLEVYN PLACED OVER OPEN BLISTER. PT UPDATED ON POC FOR THE EVENING, QUESTIONS ANSWERED. NO FURTHER NEEDS AT THIS TIME, CALL LIGHT IN REACH.
--- NOTE | 2020-04-17 20:50 | NUR ---
ASSESSMENT COMPLETE, PT ALERT AND ORIENTED. VSS WITH EXCEPTION TO TEMP. ORAL TEMP OF 100.5, IS DEMONSTRATED, REACHED 2250. REPEAT ORAL TEMP OF 100.6. DR VENCES NOTIFIED, TELEPHONE ORDERS READ BACK FOR 325MG PO TYLENOL Q4H PRN FOR TEMPS GREATER THAN 100.4. PT ALSO REQUESTING SOMETHING TO SLEEP, MADE AWARE. TELEPHONE ORDER READ BACK FOR 1MG MELATONIN HS PRN FOR INSOMNIA. NEW ORDERS PUT IN BY THIS RN. IV FLUIDS INFUSING, SITE WNL. OPEN BLISTER TO LEFT BENITEZ COVERED WITH ALLEVYN, FULLY SATURATED WITH YELLOW DRAINAGE AND LEAKING SMALL AMOUNT ONTO CHUCKS. WILL MONITOR. BED CHANGE COMPLETE. PT DENIES ADDITIONAL NEEDS, CALL LIGHT IN REACH.
--- NOTE | 2020-04-17 21:35 | NUR ---
BROUGHT PT OVER TO [facility] IN HIS BED. HE IS ORIENTED TO THE FLOOR AND CALL LIGHT. HE DENIES NEEDS AT THIS TIME. CALL LIGHT IS CLOSE.
--- NOTE | 2020-04-17 21:40 | NUR ---
PRN TYLENOL GIVEN FOR INCREASED TEMP (SEE VS). PT TRANSFERRING OVER TO [facility] AT THIS TIME. TELEPHONE REPORT GIVEN TO [facility] TI AGGARWAL. ALL QUESTIONS ANSWERED.
--- NOTE | 2020-04-17 22:19 | NUR ---
PT TRANSFERRED FROM CCU TO ROOM 116. ALERT AND ORIENTED, IVF INFUSING RAC, NO C/O PAIN OR SOB. ABD LARGE, SOFT, NO EMESIS, TOLERATING LARGE AMONTS OF FLUIDS. CALL LIGHT AT BEDSIDE
--- NOTE | 2020-04-18 00:46 | NUR ---
RESTING, EYES CLOSED, ON ROOM AIR, LEGS ELEVTED. CALL LIGHT AT BEDSIDE
--- NOTE | 2020-04-18 00:58 | NUR ---
TEMP DONE AND CHARTED PER RN ALESSIA.
--- NOTE | 2020-04-18 05:46 | NUR ---
VITALS AND I &OS DONE AND CHARTED. GARBAGES EMPTIED. FRESH ICE WATER GIVEN. HELPED PT TO THE BATHROOM AND BACK TO BED. CHANGED HIS SHEET AND BLANKET. BEDSIDE TABLE AND CALL LIGHT IN REACH.
--- NOTE | 2020-04-18 06:13 | NUR ---
temp 99.8 at this time. IS encouraged, stated ok and goes back to sleep, covers removed, room temp decreaed to 70. CIWA 2, no s/sx etoh withdrawal. cooperative, IVF infusing, no c/o adverse reaction to abx. tolerating fluids well, no emesis. 1PA, wobbly, slightly unsteady gait, c/o tenderness L leg, allevyn dressing in place, small amount of ss drainage noted. red LLE. elevated with pillows, declines need for pain med. "Jason ok".
--- NOTE | 2020-04-18 07:25 | NUR ---
BEDSIDE HANDOFF REPORT RECEIVED FROM PARKING GARAGE MANAGER RN. PT RESTING IN BED. DRESSING TO LEFT POSTERIOR LEG FELL OFF, WILL REPLACE THIS AM. PT DENIES OTHER NEEDS AT THIS TIME.
--- NOTE | 2020-04-18 08:15 | NUR ---
PT RESTING IN BED, EATING BREAKFAST. PT RATING PAIN 3-4/10 TO LEFT LEG. PT ON ROOM AIR, LUNG SOUNDS CLEAR. PT DENIES NAUSEA, BOWEL TONES ACTIVE, GOOD APPETITE. CMS INATCT. LEFT LOWER EXTREMITY WITH REDNESS AND SWELLING, WOUND TO POSTERIOR LEG CLEANSED WITH WOUND CLEANSER SPRAY AND COVERED WITH ALLEVYN DRESSING. IV INFUSING NS AT 75ML/HR. VSS. PT DENIES OTHER NEEDS AT THIS TIME.
--- NOTE | 2020-04-18 10:30 | NUR ---
SPOKE WITH PATIENT IN ROOM. PATIENT LAYING IN BED, PLEASANT. PATIENT LIVES WITH MOTHER. DOES NOT DRIVE. STATES HIS SISTER OR OTHER FAMILY DRIVES HIM. HE DENIES USING ANY DME. HE USES [facility] [address], STATES HE DID HAVE PCP IN [place] BUT IT WAS TOO HARD TO GET THERE. HE DENIES PROBLEMS WITH AFFORDING MEDICATIONS, FOOD OR UTILITIES. PATIENT DOES NOT WANT ANY REFERRAL FOR ALCOHOL USE. PATIENT STATES HIS SISTER WILL PICK HIM UP AT DISCHARGE AND HE FEELS SAFE TO RETURN HOME WHEN DOCTOR DISCHARGES HIM. CM WILL FOLLOW NEEDED.
--- NOTE | 2020-04-18 12:26 | NUR ---
TI LEON REQUESTED I LET PT REST AT THIS TIME. WILL CHECK BACK
[2020-04-18] MEDS ORDERED: ADVIL200 MG PO (12:38)
--- NOTE | 2020-04-18 14:50 | NUR ---
pt with fever 101.1 oral, Dr. Rush notified, telephone order for pharmacy to dose vancomycin at 20mg/kg with daily dosing trough of 15-20, rbov.
--- NOTE | 2020-04-18 15:10 | NUR ---
PT SITTING IN CHAIR. PT WITH DRAINAGE FROM LEFT POSTERIOR LOWER EXTREMITY WOUND, DRESSING CHANGED TO GAUZE, ABD, AND KERLEX TO SECURE DRESSING. IV ANCEF GIVEN. PT DENIES OTHER NEEDS AT THIS TIME.
--- NOTE | 2020-04-18 16:29 | NUR ---
PATIENT UP TO BATHROOM TO VOID, BACK TO BED, REPORTS THAT NICORETTE GUM IS NOT HELPING HIS NICOTINE CRAVINGS.
--- NOTE | 2020-04-18 17:37 | NUR ---
PT SITTING UP ON BEDSIDE EATING DINNER. OLD WOUND DRESSING HAD FALLEN DOWN ON THE LLE. CLEANSED WOUND WITH WOUND INFO SPECIALIST. DRAINAGE NOTED. REDRESSED WITH GAUZE, BACITRACIN AND SECURED WITH COBAND. PT FINISHING DINNER WITH NO FURTHER REQUESTS AT THIS TIME. CALL LIGHT WITHIN REACH.
--- NOTE | 2020-04-18 18:30 | NUR ---
VSS. PT RESTING IN BED. PT WITH GOOD APPETITE, ATE 100% OF DINNER. PT DENIES OTHER NEEDS AT THIS TIME.
--- NOTE | 2020-04-18 19:23 | NUR ---
Awake, Follows instructions, no requests, no c/o pain. LLeg edematous, red, abd dressing in place covered with Coban. SL. fluids and call light at hands reach. Bed alarm on
--- NOTE | 2020-04-18 20:01 | NUR ---
Up to br, voided jose amount of orange-yellow urine, back to bed, bed alamr on, dressing to LLE with serous drainage, elevated in pillows. tolerated well
--- NOTE | 2020-04-18 21:09 | NUR ---
alrm going off, got out of bed, walked to br, voided, back to bed. improved gait. On room air, Coop with assessment, instructed to please call for help, stated understansidng, back in bed, alarm back on. pulled IV sl off, area intact. IV SL restarted L hand, procedure explained, coop.
--- NOTE | 2020-04-18 22:10 | NUR ---
bed alarm going off, up to br, voided large amount of urine, back to bed, L leg no changes, elevated in pillow, Bed alarm on, HOB elevated to his comofrt, tolerating liquids well
--- NOTE | 2020-04-19 01:24 | NUR ---
UP TO BR, VOIDED, BACK TO BED, ABD REPLACED lle, COVERED WITH COBAN. SEROUNS DRAINAGE MODERATE AMOUNT PRESENT. FRESH WATER GIVEN, UP W SBA/FWW, LLE ELEVATED
--- NOTE | 2020-04-19 02:29 | NUR ---
uP TO BR, VODING QS YELLOW URINE. BACK TO BED, GAUZE DRESSING FROM LLE FELL OFF, WOUND SPRYED WITH WOUND CLEANSER AND ADAPTIC NON ADHERENT DRESSING APPLIED COVERED WTIH 2 ABD AND KEATON WRAP TO HOLD IT INPLACE, PT COOP. LEF ELEVATED, NO CHANGES IN ASSESSMENT FROM EARLIER. BACK IN BED, TOLERATING LARGE AMOUNTS OF FLUIDS
--- NOTE | 2020-04-19 05:07 | NUR ---
pt has slept off and on this shift, tolerating large amounts of liquids and voiding large amounts of urine. Alert, follows instructions except using call light when getting up. Bed alarm on for fall precautions. On room air, and distended mild ascitic, no bm thi shift. pulled iv , restarted, sl patent gets ancef and vancomycin iv abx. L leg open area mid calf draining moderated amount of serous drainage, dressing changed 2x, abd covered with ese wrap at this time. elevated w pillows. tolerating liquids well, no emesis, no s/sx etoh withdrawal
--- NOTE | 2020-04-19 06:42 | NUR ---
pt dresed up on his own clothes, "Jason ready to go home, i need a smoke and a cold one",talked to pt about the benefits of staying al least a few more days to complete the abx therapy, how its helping decreaesd the cellulitis of his leg, the need to probably need dressing changes to LLE,. semi receptive, Well, I would like to see the dr in the morning, Jason better, I can walk better and my leg does not hurt as bad" much improved gait present. semireceptive at his time, in bed, will notify Dr Roblero via phone about above statements
--- NOTE | 2020-04-19 06:50 | NUR ---
Dr Roblero notified via phone about pt requesting something for pain and how he would like to levae the hospital. new orders received for Oxycodone 5mg po q4-6h prn pain and that he would come and talk to him later today.
--- NOTE | 2020-04-19 07:31 | NUR ---
0700: Report received from Shannon LUKE. Pt sleeping, call alcala within reach, bed alarm is on.
--- NOTE | 2020-04-19 08:05 | NUR ---
Pt states his left lower leg pain is "slight" at this time. LLE dressing CDI. See assessment.
--- NOTE | 2020-04-19 08:11 | NUR ---
Bed alarm on, call alcala within reach. Fall precautions discussed with the pt with understanding stated.
--- NOTE | 2020-04-19 09:36 | NUR ---
PATIENT UP TO BATHROOM AND BACK TO BED, SBA. PATIENT DID ORAL CARE AT SINK. CALL LIGHT IN REACH. BED ALARM ON. NO FURTHER NEEDS AT THIS TIME.
--- NOTE | 2020-04-19 11:02 | NUR ---
Pt sleeping, RR is 18. Hossein's sister Annelise called and was updated on the pt's status.
--- NOTE | 2020-04-19 11:37 | NUR ---
SACHI HAD REMOVED HIS LEFT LEG DRESSING AND STATES THAT IT WAS TOO TIGHT. CIRCULATION REMAINS INTACT AND EDEMA +2. THE OPENED BLISTER MEASURES 4X5 CM, THE SITE WAS CLEANED WITH WOUND WASH, AND LIGHTLY DRYED, ADAPTIC AND TWO ABD PADS APPLIED AND LOOSELY WRAPPED WITH AN KEATON WRAP. SACHI STATES, "THAT FEELS BETTER". THE LEG WAS AGAIN ELEVATED. THE DRESSING HE REMOVED WAS NOTED TO HAVE A MODERATE AMOUNT OF YELLOW SEROUS DRAINAGE. PT DENIES OTHER PROBLEMS AT THIS TIME. CALL LEUNG REMAINS ON AND CALL LEUNG WITHIN REACH. PT AGAIN REMINDED TO CALL FOR HELP PRIOR TO GETTING UP WHICH HE STATES UNDERSTANDING.
--- NOTE | 2020-04-19 13:03 | NUR ---
PT STATES HE IS HAVING LEFT LOWER LEG PAIN BUT DENIES ANY OTHER NEW PROBLEMS. PT STATES UNDERSTANDING OF HIS NOT BEING DISCHARGED TODAY AND IS AGREEMENT WITH THE PLAN AT THIS TIME. LEFT LOWER LEG DRESSING REMAINS INTACT AND HIS LEG ELEVATED ON PILLOWS. SEE ASSESSMENT.
--- NOTE | 2020-04-19 13:06 | NUR ---
PT FELL TO SLEEP PRIOR TO BEING MEDICATED FOR HIS LEFT LOWER LEG PAIN. WILL CONTINUE TO MONITOR.
--- NOTE | 2020-04-19 14:59 | NUR ---
Pt awoke to voice and denies any problems and quickly fell back to sleep. Left leg dressing reamins cdi.
--- NOTE | 2020-04-19 16:48 | NUR ---
Pt woke from his nap and called for an assist to the BR, he vioded and returned to his bed. He denies any problems and is ordering dinner at this time. Alarm remains on and his call alcala is within reach.
--- NOTE | 2020-04-19 17:57 | NUR ---
Pt resting in bed watchin tv with no complains at this time. Call alcala within reach and bed alarm on.
--- NOTE | 2020-04-19 18:31 | NUR ---
PT resting in his bed with no new compliants at this time.
--- NOTE | 2020-04-19 20:25 | NUR ---
temp 101.1 oral, tylenol 325mg po given, 3 blanklets removed, room temp decreased to 70 it was 76. ice packs to axillary area, on room air, lungs dim at bases, slight ocassional moist nonproductive cough present. L leg decreaed edema and redness, dressing mid calf in place, good c,ms. tolerating liquids well, gets up independently to br, aware not to flush , use urinal so we can keep track od better amount of urinary outputs, stated understanding. will recheck in one hour
--- NOTE | 2020-04-19 20:45 | NUR ---
Dr Roblero in unit, notified verbally of above, stated he may have ibuprogen 200mg po if he still has a fever when I recheck his temp.
--- NOTE | 2020-04-19 20:46 | NUR ---
DR SNEED MAKING ROUNDS, INFORMED OF RECENT TEMP AND TYLENOL GIVEN. WILL CONT TO MONITOR, ORDER GIVEN FOR PRN IBUPROFEN.
--- NOTE | 2020-04-19 21:35 | NUR ---
Up to br, voided, took measurement hat off, replaced, unmeasurable urine output. back to bed, uses fww, Temp 98.1 oral, ice pack removed from axillary area, denies c/o pain, 1 bedspread placed back on bed and pt covered himself with it, room temp left at 70F. toleratiang liquids well,
--- NOTE | 2020-04-19 23:05 | NUR ---
RESTING, EYES CLOSED, NO C/O PAIN, LL DRESSING INTACT, ELEVATED W PILLOWS
--- NOTE | 2020-04-20 00:23 | NUR ---
UP TO BR, VOIDED, UNABLE TO MEASURE URINE AGAIN, BACK TO BED, TOLERATED VERY WELL, MUCH IMPROVED GAIT, NO C/O PAIN, LLE DRESSING INTACT. ELEVATED WITH PILLOWS
--- NOTE | 2020-04-20 02:16 | NUR ---
RESTING, ON ROOM AIR, EYES CLOSED, TURNS SELF IN BED. CALL LIGHT AND FLUIDS AT BEDSIDE
--- NOTE | 2020-04-20 05:05 | NUR ---
Pt has slept all this shift, indepenedent in room. uses FWW, SL patent. no c/o adverse reaction to IV abx. Sclera of eyes slightly yellow, abd distented mild ascites present. voiding QS urine. LLE cellulitis improving, redness improving. Dressing to open area mid calf, changed x1 this shift. elevated in pillows. No c/o pain or n/v. Coop, tolerating liquids and diet well, flat affect but cooperative
--- NOTE | 2020-04-20 06:14 | NUR ---
resting, no distress, call lihgt at bedside, up to br w/o help. LLE elevated in pillows, dressing intact
--- NOTE | 2020-04-20 07:18 | NUR ---
Report recieved from Rosalva Vera RN. Patient ambulating from bathroom to bed. Rosalva Vera RN, replaces dressing to Left calf. Patient denies other needs at this time. Call light in reach.
--- NOTE | 2020-04-20 08:32 | NUR ---
Assessment completed. Educated on medications. AM medications administered as prescribed. Takes without difficulty. Denies pain at this time. Call light in reach. Bed rails up X2, bed alarm activated. Denies other needs at this time.
--- NOTE | 2020-04-20 10:10 | NUR ---
Ambulates to bathroom with standby assist. Continent of urine. Returns to bed, VS obtained. States he would like to shower today. Denies other needs. Call light in reach, bed rails up X2.
--- NOTE | 2020-04-20 11:52 | NUR ---
JUST CHECKED ON PATIENT HE IS SLEEPING. I ALSO SET HIS TOOTH BRUSH AND TOOTH PASTE ON HIS SIDE TABLE. HE STILL HASN'T BRUSHED HIS TEETH. HE SAID HE WOULD LIKE TO TAKE A SHOWER SOMETIME TODAY BUT HE ALSO SAID HE IS WAITING ON WHAT THE DOCTOR HAS TO SAY.
--- NOTE | 2020-04-20 12:14 | NUR ---
PATIENT WALKED 2 LAPS AROUND MED SURG. WITH PHYSICAL THERAPY.
--- NOTE | 2020-04-20 13:37 | NUR ---
Lying on right side in bed, eyes closed. No signs of pain or discomfort. Allowed to rest. Call light in reach, bed rails up X2. Respirations even and unlabored at this time.
--- NOTE | 2020-04-20 15:56 | NUR ---
Medications given as prescribed. PRN analgesics given per request. Patient talking on phone while GEO Phelan, in room. Patient telling someone on phone he is leaving this afternoon. Patient informed by this nurse and aide of need to stay overnight for further antibiotic treatments.
--- NOTE | 2020-04-20 16:50 | NUR ---
Patient lying in bed, dressing reapplied to Left leg wound. Denies other needs at this time.
--- NOTE | 2020-04-20 18:15 | NUR ---
Up independently in room. Continent of urine. Unable to monitor output adequately due to patient urinating on his own and not using urinal. Patient verbalizes he has urinated a few times, unsure how many. BUN and Creatinine WNL. Patient dose of Vancomycin increased due to low trough. Dressing to LLE replaced. Showered this afternoon. Pain to arms bilat improves with PRN analgesics.
--- NOTE | 2020-04-20 19:25 | NUR ---
report received from Dee LUKE. pt resting, on room air
--- NOTE | 2020-04-20 20:12 | NUR ---
Up to br, voided, unable to measure urine, dark yellow colored. Pt instructed againto use bsc pot/ urinal or measurement hat over toilet, smiles, not receptive. Back to bed. no c/o pain. SL patent L hand. LLE decreaed edema, dressing mid calf covered with coban
--- NOTE | 2020-04-21 00:29 | NUR ---
Resting, eyes closed, no resp distress, l leg dressing in tact, elevated
--- NOTE | 2020-04-21 02:15 | NUR ---
AWAKES EASILY, IV VANCOMYCIN INFUSING, NO C/O PAIN, GOES BACK TO SLEEP.
--- NOTE | 2020-04-21 04:39 | NUR ---
UP TO BR, BACK TO BED INDEPENDENT. LLE DRESSING INPLACE, ELEVATED IN PILLOWS. NO C/O PAIN. NO C/PA DVERSER EACTION TO ABX
--- NOTE | 2020-04-21 05:32 | NUR ---
Pt has slept most of this shift. on room air, Lungs dim at bases, no cough this shift. Independent in room, sl patent, no c/o adverser eaction to iv abx. has voided QS light braulio colored urine. toleratiang fluids well, no c/o n/v. L leg much improved decreased redness and edema. mid calf dressing intact. very scant amount of drainage. has elevated in pillows. Much improved affecvt and gait. wants to go home today.
--- NOTE | 2020-04-21 08:30 | NUR ---
REPORT RECIEVED FROM TI AGGARWAL. PT AWAKE BUT DROWSY. PT DOES NOT WANT TO GET OUT OF BED. STATES HE LIKES TO LAY THERE ALL DAY. EXPLAINED THAT HE WILL PROBABLY WONT BE DISCHARGED UNTIL AROUND LUNCH DUE TO AB. DANICA PATCH PLACED. PT ALREADY ATE BREAKFAST.
[2020-04-21] MEDS ORDERED: DOXYCYCLINE HY100 MG PO (09:24)
[2020-04-21] MEDS ORDERED: NICOTINE PATCH1 EAC1 TD (09:25)
--- NOTE | 2020-04-21 09:33 | NUR ---
PATIENT RESTING IN BED. WHITE BOARD UPDATED. CALL LIGHT WITHIN REACH. NO FURTHER NEEDS AT THIS TIME.
--- NOTE | 2020-04-21 10:00 | NUR ---
SPOKE WITH PATIENT IN ROOM. PATIENT IS UP AND HAS GOTTEN DRESSED IN STREET CLOTHES. PATIENT VERY PLEASANT. PATIENT STATES HE WANTS TO DO HIS F/U WITH DR BRITTANEY MARTÍNEZ FROM [place]. STATES HE DOESN'T WANT TO GO TO [facility] BECAUSE "IF YOU GO THERE EVERYONE WILL KNOW YOUR BUSINESS". DISCUSSED THAT THEY ARE HELD TO [facility] ALSO ABOUT DISCUSSING HIS MEDICAL CARE. HE JUST LAUGHS "HAVE YOU BEEN THERE LITTLE LADY?" ASKED IF PATIENT WAS STILL NOT INTERESTED IN INFORMATION REGARDING ALCOHOL USE. HE DOES NOT REMEMBER TALKING WITH ME LAST WEEK. DISCUSSED OPTIONS. GAVE HIM CONTACT INFORMATION FOR PRGRAMS WITH [facility] AND [facility]. ALSO OFFERED TO HAVE [facility] PEER TO PEER PERSON COME SEE HIM BEFORE DISCHARGE, HE IS VERY EVASIVE ON THIS. FINALLY HE STATES HE DOESN'T THINK SO. HE STATES HE HAS BEEN TO AA MEETINGS IN THE PAST. HE STATES "I'M AN ALCOHOLIC FOR SURE". ENCOURAGED HIM TO KEEP TRYING TO QUIT. HE STATES HE KNOWS HE SHOULD BECAUSE THE DOCTOR CAME IN AND TOLD HIM "MY LIVER IS BAD". AGAIN OFFERED TO CALL THEM, HE REFUSED. HE DOES HAVE THE PAPER WITH CONTACT NUMBERS. HE STATES HE HAS A CELL PHONE IF HE NEEDS TO CALL THEM. HE STATES HE HAS A RIDE HOME AT DISCHARGE. CM WILL CONTINUE TO FOLLOW IF NEEDED.
--- NOTE | 2020-04-21 10:56 | NUR ---
CHANDNI OVIEDO AND ADVISED THAT HE WOULD BE DISCHARGED AT NOON AND HIS NEPHEW IS PICKING HIM UP.
--- NOTE | 2020-04-21 13:14 | NUR ---
PT ALERT, ORIENTED AND DRESSED FOR DC. PT STATED HE FORCED HIMSELF TO STAY INPATIENT. HE STATED BEFORE HE WOULD HAVE JUST LEFT WHEN HE WAS READY. HE IS GLAD HE STAYED THIS TIME. FEELING MUCH BETTER. RN ELMER IN TO GIVE IV MEDS IN PREP FOR DC. GAVE BLESSING, PT THANKED ME AND SAID HE WANTS TO SEE ME IN [place]!
--- NOTE | 2020-04-21 13:20 | NUR ---
MADE FOLLOW UP APPOINTMENT FOR PATIENT AT DISCHARGE WITH [facility], PATIENT REQUESTED TO GO SEE DR. ESCOTO AT [place] [facility] SO [facility] AND [facility] WERE GOING TO GET BACK TO ME. AFTER PATIENT DISCHARGED, TAE CALLED WITH AN APPOINTMENT. CALLED PATIENT, SISTER ANSWERED AND WAS INFORMED OF THE APPOINTMENT AT [place].
== END 2020-04-21 12:00 | disposition home or self-care (01) | DRG 872 ==
LOC: ED 11:41 → CCU 16:56 → MS 16:56
PROVIDERS: ADMIT Internal Medicine
DX: A41.9 Sepsis, unspecified organism (principal); L03.116 Cellulitis of left lower limb; E87.1 Hypo-osmolality and hyponatremia; F10.239 Alcohol dependence with withdrawal, unspecified; K70.10 Alcoholic hepatitis without ascites; Z20.828 Contact with and (suspected) exposure to other viral communicable diseases; F17.210 Nicotine dependence, cigarettes, uncomplicated; K70.30 Alcoholic cirrhosis of liver without ascites; Z79.899 Other long term (current) drug therapy
CPT/HCPCS: 36415; 76705; 80048; 80053; 80076; 80202; 82977; 83605; 83615; 83735; 83930; 83935; 85025; 87040; 87077; 87186; 96361; 96374; 96375; 97162; 99285-25; J0690; J1170; J1650; J1885; J2405; J3370; J3475; J7030; J7060; J7121

== ENCOUNTER 2020-05-13 17:22 | Emergency (ER) | payer OTHER ==
[~2020-05-13] VITALS: Ht 180.3 cm; Wt 117.9 kg
--- OUTSIDE RECORDS SUMMARY | ~2020-05-13 | XMS | Encounter Summary ---
Demographics + + + | Address | [address] | | | [place] [address] | + + + | Home Phone | | + + + | Preferred Language | Unknown | + + + | Marital Status | Single | + + + | Pentecostalism Affiliation | Unknown | + + + | Race | or | + + + | Ethnic Group | Not or | + + + Author + + + | Author | [facility] | | | and [place] | + + + | Organization | [facility] | | | and [...] Team Providers + +------+ + | Care Manufactured Buildings Repairer Name | Role | Phone | + +------+ + | Orly Villavicencio MD | PCP | | + +------+ + Reason for Visit + +--------+ + | Reason | Onset | Comments | | | Date | | + +--------+ + | Hospital Follow-up | 04/21/ | | | | 2020 | | + +--------+ + Encounter Details +--------+ + + + + | Date | Type | Department | Care Team | Description | +--------+ + + + + | 04/21/ | Telephone | [facility] | Orly Villavicencio | Hospital Follow-up | | 2020 | | [address]IC[address] | [address] | | | | | [place], | [place] [facility] | | | | | [place] [address] | [place] [address] | | | | | [phone] | | | | | | | [...] + + +---------+ + | Yes | | | Drinks mostly beer, | | | | | "as much as I can | | | | | get my hands on." | + + +---------+ + + + + | Sex Assigned at | Date Recorded | | | | + + + | Not on file | | + + + documented as of this encounter Miscellaneous Notes Telephone Encounter - Dana Goins RN - 04/21/2020 1:02 PM PDTCalled efe suero [facility] 04/24 elephone Encounter - Lesia Hastings - 04/21/2020 9:55 AM PDTReceived a call from David dunlap with [facility] needing to schedule the patient an appointment. He was admit fran to their facility on 04/16/2020 for sepsis and cellulitis and is discharging today, 2019. Please call Cortney at [phone].Electronically signed by Lesia Hastings at 2019 9:58 AM PDTdocumented in this encounter Plan of Treatment Not on filedocumented as of this encounter Visit Diagnoses Not on filedocumented in this encounter
--- OUTSIDE RECORDS SUMMARY | ~2020-05-13 | XMS | Encounter Summary ---
Demographics + + + | Address | [address] | | | [place] [address] | + + + | Home Phone | | + + + | Preferred Language | Unknown | + + + | Marital Status | Single | + + + | Bahai Affiliation | Unknown | + + + | Race | or | + + + | Ethnic Group | Not or | + + + Author + + + | Author | [facility] | | | and [place] | + + + | Organization | [facility] | | | and [...] Team Providers + +------+ + | Care Tile Mason Name | Role | Phone | + +------+ + | Orly Villavicencio MD | PCP | | + +------+ + Reason for Visit + +--------+ + | Reason | Onset | Comments | | | Date | | + +--------+ + | Appointment | 05/02/ | | | | 2018 | | + +--------+ + Encounter Details +--------+ + + + + | Date | Type | Department | Care Team | Description | +--------+ + + + + | 05/02/ | Telephone | [facility] | Orly Villavicencio | Appointment | | 2018 | | MEDICINE [address] | [address] | | | | | [place], | [place] | | | | | [place] [address] | [place] [address] | | | | | [phone] | [phone] | | | | | | | [...] 126 Cans of beer | 126.0 | quit since 04/06/15 | + + +---------+ + + + + | Sex Assigned at | Date Recorded | | | | + + + | Not on file | | + + + documented as of this encounter Miscellaneous Notes Telephone Encounter - Nay Sykes RN - 05/11/2018 4:33 PM PDTAttempting to reach patie nt on home phone, no voicemail set up. Sister Annelise notified of US appt tomorrow and need for labs, she agrees to notify patient when she gets home, she states his phone does not work at home. elephone Encounter - Natalia Hastings RN - 018 9:10 AM PDTTried to call patient, no answer and no voicemail set up. Call to Annelise. No answer. No voicemail set up. elephone Encounter - Natalia Hastings RN - 05/02/2018 11:22 AM PDTPlease call him the to remind him to do US and the blood test on 05/12/2018.Electron ically signed by Natalia Hastings RN at 05/02/2018 11:23 AM PDTdocumented in this encounter Plan of Treatment Not on filedocumented as of this encounter Visit Diagnoses Not on filedocumented in this encounter"
--- OUTSIDE RECORDS SUMMARY | ~2020-05-13 | XMS | Encounter Summary ---
Demographics + + + | Address | [address] | | | [place] [address] | + + + | Home Phone | | + + + | Preferred Language | Unknown | + + + | Marital Status | Single | + + + | Church Affiliation | Unknown | + + + | Race | or | + + + | Ethnic Group | Not or | + + + Author + + + | Author | [facility] | | | and [place] | + + + | Organization | [facility] | | | and [place] | + + + | Address | Unknown | + + + | Phone | Unavailable | + + + Support + + +---------+ + | Name | Relationship | Address | Phone | + + +---------+ + | Patricia Zhang | ECON | Unknown | | + + +---------+ + Care Team Providers + +------+ + | Care Rubber Molder Name | Role | Phone | + +------+ + | Orly Villavicencio MD | PCP | | + +------+ + Encounter Details +--------+ + + + + | Date | Type | Department | Care Team | Description | +--------+ + + + + | 10/24/ | Abstract | [facility] [place] [facility] | Orly Villavicencio | | | 2020 | | MEDICINE [address] | [address] | | | | | [place], | [address] [place] | | | | | [place] [address] | [place] [address] | | | | | [phone] | | | | | | | [...] + + documented as of this encounter Plan of Treatment Not on filedocumented as of this encounter Procedures + +--------+ + + + | Procedure Name | Priori | Date/Time | Associated Diagnosis | Comments | | | ty | | | | + +--------+ + + + | MRSA SCREEN | Routin | 10/24/2019 | | Results for this | | | e | | | procedure are in the | | | | | | results section. | + +--------+ + + + documented in this encounter Results MRSA Screen (10/24/2019) + + + + + + | Component | Value | Ref Range | Performed | Pathologist | | | | | At | Signature | + + + + + + | MRSA SCREEN | negative | | | | + + + + + + + + | Specimen | + + | Tissue - Both | | anterior nares (body | | structure) | + + documented in this encounter Visit Diagnoses Not on filedocumented in this encounter
--- OUTSIDE RECORDS SUMMARY | ~2020-05-13 | XMS | Encounter Summary ---
Demographics + + + | Address | [address] | | | [place] [address] | + + + | Home Phone | | + + + | Preferred Language | Unknown | + + + | Marital Status | Single | + + + | Yarsani Affiliation | Unknown | + + + [...] Team Providers + +------+ + | Care Industrial Spraypainter Name | Role | Phone | + [...] Description | +--------+--------+ + + + | 03/14/ | Refill | [facility] [place] [facility] | Orly Villavicencio | Medication Refill | | 2020 | | [address] | [address] | | | | | [place], | [place] | | | | | [place] [address] | [place] [address] | | | | | [phone] | | | | | | | [...]
--- OUTSIDE RECORDS SUMMARY | ~2020-05-13 | XMS | Encounter Summary ---
Demographics + + + | Address | [address] | | | [place] [address] | + + + | Home Phone | | + + + | Preferred Language | Unknown | + + + | Marital Status | Single | + + + | Baptism Affiliation | Unknown | + + + | Race | or | + + + | Ethnic Group | Not or | + + + Author + + + | Author | [facility] | | | and [place] | + + + | Organization | [facility] | | | [...] Team Providers + +------+ + | Care Director Compliance Name | Role | Phone | + [...] | | | Services | ogy | Chronic | Orly Huff | Gastroenterol | | | Required | | hepatitis C | MD [address] | ogy [address] | | | | | without | [address] | [address] | | | | | hepatic coma | [place] | [address] [place] | | | | | (HCC) | [place], [place] | [place], [place] | | | | | | [address] | [address] | | | | | | Phone: | Phone: | | | | | | [phone] | [phone] | | | | | | Fax: | Fax: | | | | | | [phone] | [phone] | +--------+ + + + + + Reason for Visit +---------+--------+ + | Reason | Onset | Comments | | | Date | | +---------+--------+ + | Results | 10/03/ | | | | 2017 | | +---------+--------+ + Encounter Details +--------+ + + + + | Date | Type | Department | Care Team | Description | +--------+ + + + + | 10/03/ | Telephone | [facility] | Orly Villavicencio | Results | | 2018 | | [address]ICINE [address] | [address] | | | | | [place], | [place] | | | | | [place] [address] | [place] [address] | | | | | [phone] | [phone] | | | | | | | [...] Telephone Encounter - Orly Villavicencio MD - 10/26/2017 1:12 PM PSTNoted. They have been made aware of consequences of non-compliance. See last OV note. P M PSTTelephone Encounter - Natalia Hastings RN - 10/25/2017 4:54 PM PSTHeather notified to please schedule liver US. She says she knows this is due. She says they are both working, a nd both refuse to take a day off for this, at this time. Lesia was given the number of our imaging department to please schedule, if reconsiders. Lesia refuses to schedule this US at this time. This routed to Dr Villavicencio. elephone Encounter - Natalia Hastings RN - 10/24/2017 4:52 PM PSTMessage left for danyelle blandon to call back. eleph one Encounter - Natalia Hastings RN - 10/13/2017 10:07 AM PSTI do not see this has been sche duled. Message left for Lesia to call back. elephone Encounter - Nay Sykes RN - 10/07/2017 10:34 AM PSTLe ft message for patient notifying that we want to schedule liver US, also gave imaging number on VM if patient wishes to schedule this himself. elephone Encounter - Natalia Hastings RN - 10/04/2017 11:10 AM P STHeather notified and she verbalized understanding. She says patient is working again, and she could not tell me when he will be available for liver US. She agrees to speak to barbara t and call us back tomorrow to get this scheduled. elephone Encounter - Natalia Hastings RN - 10/04/2017 11:00 AM PSTMessage left for Lesia to call back.Electronically signed by Natalia Hastings RN at 09/22 11:01 AM PSTTelephone Encounter - Natalia Hastings RN - 10/03/2017 2:16 PM PSTMessag e left for patient to call back 2: 17 PM PSTTelephone Encounter - Orly Villavicencio MD - 10/03/2017 6:58 AM PSTPlease let patient know labs showed: Persistent abnormal liver function tests. Continue furosemide and KCl. Continue lactulose - he needs to take this to a goal of 2-3 soft stools a day. I ordered an updated liver US. Gi referral submitted. Thanks. documented regina n this encounter Plan of Treatment + + +--------+ + + | Name | Type | Priori | Associated Diagnoses | Order Schedule | | | | ty | | | + + +--------+ + + | * [facility] [place] | Outpatient | Routin | Chronic hepatitis | Ordered: 10/03/2017 | | Gastroenterology - | Referral | e | C without hepatic | | | AMB Referral | | | coma (HCC) | | + + +--------+ + + documented as of this encounter Visit Diagnoses + + | Diagnosis | + + | Chronic hepatitis C without hepatic coma (HCC) - Primary | + + documented in this encounter"
--- OUTSIDE RECORDS SUMMARY | ~2020-05-13 | XMS | Encounter Summary ---
Demographics + + + | Address | [address] | | | [place] [address] | + + + | Home Phone | | + + + | Preferred Language | Unknown | + + + | Marital Status | Single | + + + | Lutheran Affiliation | NON | + + + | Race | or | + + + | Ethnic Group | Not or | + + + Author + + + | Author | [facility] | + + + | Organization | [facility] | + + + | Address | Unknown | + + + | Phone | Unavailable | + + + Support + + +---------+ + | Name | Relationship | Address | Phone | + + +---------+ + | Kaecy Holcomb | ECON | Unknown | | + + +---------+ + Care Team Providers + +------+ + | Care Bargeman Name | Role | Phone | + +------+ + PCP | Unavailable | + +------+ + Encounter Details +--------+ + + + + | Date | Type | Department | Care Team | Description | +--------+ + + + + | 07/09/ | Results | Registration [id number] | Whitney Vega MD | | | 2006 | Only | [facility] | [address] | | | | | [address] Mailcode: RPB07 | [facility] | | | | | [place], [place] | [place] [address] | | | | | [address] | [phone] | | | | | [phone] | | | +--------+ + + + + Social History + +-------+ +--------+------+ | Tobacco Use | Types | Packs/Day | Years | Date | | | | | Used | | + +-------+ +--------+------+ | Never Assessed | | | | | + +-------+ +--------+------+ + + + | Sex Assigned at [...] | + +--------+ + + + | BLOOD BANK HOLD TUBE | Routin | 07/09/2007 | | Results for this | | - DON | e | 5:05 PM | | procedure are in the | | | | PST | | results section. | | T PROCESS | | | | | + +--------+ + + + documented in this encounter Results BR-MJUS-JLMR-DONT PROCESS (07/09/2007 5:05 PM PST) + + + + + + | Component | Value | Ref Range | Performed | Pathologist | | | | | At | Signature | + + + + + + | SPECIMEN | Sample received with | | [facility] | | | COLLECTED, | adeq label/volume to | | DEPARTMENT | | | HELD | process | | OF | | | | | | PATHOLOGY | | + + + + + + + + | Specimen | + + | | + + + + + | Narrative | Performed At | + + + | Ordered by an unspecified provider. | [facility] | | | DEPARTMENT OF | | | PATHOLOGY | + + + + + + + + | Performing | Address | City/State/Zipcode | Phone Number | | Organization | | | | + + + + + | [facility] | [address] | [place] [address] | | | PATHOLOGY | [place] | | | + + + + + | [facility] | [address] | [place] [address] | | | PATHOLOGY | [place] | | | + + + + + documented in this encounter Visit Diagnoses Not on filedocumented in this encounter"
--- OUTSIDE RECORDS SUMMARY | ~2020-05-13 | XMS | Encounter Summary ---
Demographics + + + | Address | [address] | | | [place] [address] | + + + | Home Phone | | + + + | Preferred Language | Unknown | + + + | Marital Status | Single | + + + | Zoroastrian Affiliation | Unknown | + + + | Race | or | + + + | Ethnic Group | Not or | + + + Author + + + | Author | [facility] | | | and [place] | + + + | Organization | [facility] | | [...] Team Providers + +------+ + | Care Punchboard Filling Machine Operator Name | Role | Phone | + +------+ + | Orly Villavicencio MD | PCP | | + +------+ + Reason for Visit +---------+--------+ + | Reason | Onset | Comments | | | Date | | +---------+--------+ + | Results | 05/12/ | | | | 2018 | | +---------+--------+ + Encounter Details +--------+ + + + + | Date | Type | Department | Care Team | Description | +--------+ + + + + | 05/12/ | Telephone | [facility] | Orly Villavicencio | Results | | 2018 | | [address] | [address] | | | | | [place], | [place] | | | | | [place] [address] | [place] [address] | | | | | [phone] | [phone] | | | | | | | [...] Telephone Encounter - Nay Sykes RN - 05/12/2018 4:38 PM PDTAttempting to reach patie nt, VM is not set up. Sister Melvin notified of results and recommendations. She agrees to flower picker spironolactone, notified this would be a new dose of 100 mg once pasquale y. Rx for spironolactone e-scribed to pharmacy. Agrees to continue furosemide 40 mg BID, will update med list. Agrees to f/u 06/01/18 with labs and CXR prior. elephone Encounter - Orly Villavicencio MD - 05/12/2018 3:32 PM PDTPlease let patient know labs showed: Low potassium. Slightly improved liver function. Abdominal US showed: Findings suggestive of liver fibrosis or cirrhosis. Spleen is enlarged, because of his liver condition. Small amount of fluid in his abdomen. Small enlargement of his aorta (main blood vessel in the abdomen). Small amount of fluid in the left lung. Recommendation: Increase spironolactone to 100 mg once a day. This will help get rid of excess fluid. Please send new Rx in. Continue Furosemide at 40 mg BID. See me as scheduled on 06/01/18. Please have him do bloodwork and CXR 1 hour prior to his appt. Thanks. documented i n this encounter Plan of Treatment Not on filedocumented as of this encounter Results XR Chest PA and Lateral (06/01/2018 10:58 AM PDT) + + | Specimen | + + | | + + + + + | Narrative | Performed At | + + + | PA AND LATERAL CHEST 06/01/2018 10:58 AM CLINICAL HISTORY: left | [facility] | | pleural effusion on previous ultrasound COMPARISON: Radiographs | | | September 24, abdominal ultrasound May 12 FINDINGS: The | | | cardiomediastinal silhouette and pulmonary vasculature are | | | unremarkable. A small left pleural effusion is again demonstrated, | | | and trace right pleural fluid is also questioned. Pulmonary | | | hyperinflation is suggested and there is mild anterior basilar | | | reticular opacity favoring epicardial fat with potential atelectasis | | | or fibrotic change. The upper lung ballard are clear. No | | | pneumothorax is evident. Multiple healed right posterior lateral rib | | | fractures are again evident. There is multilevel spondylosis. | | | IMPRESSION - 1. SMALL LEFT AND POTENTIAL TRACE RIGHT PLEURAL | | | EFFUSIONS. 2. SPECT PULMONARY HYPERINFLATION AND OBSTRUCTIVE | | | LUNG DISEASE. Dictated and Signed by: Andrea Caro MD | | | Electronically signed: 06/01/2018 11:52 AM | | + + + + + | Procedure Note | + + | Keegan, Rad Results In - 06/01/2018 11:55 AM PDT PA AND LATERAL CHEST 06/01/2018 10:58 | | AMCLINICAL HISTORY: left pleural effusion on previous ultrasoundCOMPARISON: Radiographs | | September 24, abdominal ultrasound May 12FINDINGS: The cardiomediastinal silhouette | | and pulmonary vasculature areunremarkable. A small left pleural effusion is again | | demonstrated, and traceright pleural fluid is also questioned. Pulmonary hyperinflation | | is suggestedand there is mild anterior basilar reticular opacity favoring epicardial | | fatwith potential atelectasis or fibrotic change. The upper lung ballard are clear. No | | pneumothorax is evident. Multiple healed right posterior lateral ribfractures are again | | evident. There is multilevel spondylosis.IMPRESSION - 1. SMALL LEFT AND POTENTIAL | | TRACE RIGHT PLEURAL EFFUSIONS.2. SPECT PULMONARY HYPERINFLATION AND OBSTRUCTIVE LUNG | | DISEASE.Dictated and Signed by: Andrea Caro MD Electronically signed: 06/01/2018 11:52 | | AM | |fractures are again evident. There is multilevel spondylosis. | | | |IMPRESSION - | | | |1. SMALL LEFT AND POTENTIAL TRACE RIGHT PLEURAL EFFUSIONS. | | | |2. SPECT PULMONARY HYPERINFLATION AND OBSTRUCTIVE LUNG DISEASE. | | | |Dictated and Signed by: Andrea Caro MD | | Electronically signed: 06/01/2018 11:52 AM | + + + +---------+ + + | Performing | Address | City/State/Zipcode | Phone Number | | Organization | | | | + +---------+ + + | [facility] | | | | + +---------+ + + Alpha Fetoprotein, Tumor Marker (06/01/2018 10:45 AM PDT) + + + + + + | Component | Value | Ref Range | Performed | Pathologist | | | | | At | Signature | + + + + + + | AFP Tumor | 6.5Comment: Leida ECLIA | 0.0 - 8.3 ng/mL | REFERENCE | | | Marker | methodology | | LAB [facility] | | | | | | - [facility] | | + + + + + + + + | Specimen | + + | Blood | + + + + + | Narrative | Performed At | + + + | Performed at: - [place] [id number], | REFERENCE LAB | | [place], [place] [id number] Agriculture Manager: Mukund Ponce MD, Phone: | [facility] | | [phone] | | + + + + + + + + | Performing | Address | City/State/Zipcode | Phone Number | | Organization | | | | + + + + + | REFERENCE LAB | [address] | [place], [place] | [phone] | | [facility] | [address] [facility] | [address] | | + + + + + Comprehensive Metabolic Panel (06/01/2018 10:45 AM PDT) + + + + + + | Component | Value | Ref Range | Performed | Pathologist | | | | | At | Signature | + + + + + + | Na | 133 (L) | 136 - 149 | [facility] | | | | | mmol/L | [facility] | | | | | | MEDICAL | | | | | | CENTER - | | | | | | LABORATORY | | + + + + + + | K | 3.9 | 3.5 - 5.1 | [facility] | | | | | mmol/L | [facility] | | | | | | MEDICAL | | | | | | CENTER - | | | | | | LABORATORY | | + + + + + + | Cl | 103 | 98 - 109 mmol/L | [facility] | | | | | | [facility] | | | | | | MEDICAL | | | | | | CENTER - | | | | | | LABORATORY | | + + + + + + | CO2 | 26 | 24 - 31 mmol/L | [facility] | | | | | | [facility] | | | | | | MEDICAL | | | | | | CENTER - | | | | | | LABORATORY | | + + + + + + | Anion Gap | 4 | 3 - 16 mmol/L | [facility] | | | | | | [facility] | | | | | | MEDICAL | | | | | | CENTER - | | | | | | LABORATORY | | + + + + + + | Glucose | 94 | 70 - 109 mg/dL | [facility] | | | | | | [facility] | | | | | | MEDICAL | | | | | | CENTER - | | | | | | LABORATORY | | + + + + + + | BUN | 4 (L) | 7 - 18 mg/dL | [facility] | | | | | | [facility] | | | | | | MEDICAL | | | | | | CENTER - | | | | | | LABORATORY | | + + + + + + | Creatinine | 0.78 | 0.60 - 1.30 | [facility] | | | | | mg/dL | [facility] | | | | | | MEDICAL | | | | | | CENTER - | | | | | | LABORATORY | | + + + + + + | eGFR, | >60Comment: GLOMERULAR | >=60 | [facility] | | | non- | FILTRATION | mL/min/1.73m2 | [facility] | | | [place] | RATE,ESTIMATED | | MEDICAL | | | | mL/min/1.87u1Kugi than | | CENTER - | | [...] + + + + | Calcium | 8.5 | 8.3 - 10.5 | [facility] | | | | | mg/dL | [facility] | | | | | | MEDICAL | | | | | | CENTER - | | | | | | LABORATORY | | + + + + + + | Albumin | 2.5 (L) | 3.2 - 5.0 g/dL | [facility] | | | | | | [facility] | | | | | | MEDICAL | | | | | | CENTER - | | | | | | LABORATORY | | + + + + + + | Bilirubin | 3.1 (H) | 0.1 - 1.5 mg/dL | [facility] | | | Total | | | [facility] | | | | | | MEDICAL | | | | | | CENTER - | | | | | | LABORATORY | | + + + + + + | Total | 8.2 (H) | 6.0 - 7.8 g/dL | [facility] | | | Protein | | | [facility] | | | | | | MEDICAL | | | | | | CENTER - | | | | | | LABORATORY | | + + + + + + | AST | 97 (H) | 10 - 42 U/L | [facility] | | | | | | [facility] | | | | | | MEDICAL | | | | | | CENTER - | | | | | | LABORATORY | | + + + + + + | ALT | 49 (H) | 6 - 45 U/L | [facility] | | | | | | [facility] | | | | | | MEDICAL | | | | | | CENTER - | | | | | | LABORATORY | | + + + + + + | Alkaline | 101 | 40 - 110 U/L | [facility] | | | Phosphatase | | | [facility] | | | | | | MEDICAL | | | | | | CENTER - | | | | | | LABORATORY | | + + + + + + | Globulin | 5.7 (H) | 2.1 - 3.8 g/dL | [facility] | | | | | | [facility] | | | | | | MEDICAL | | | | | | CENTER - | | | | | | LABORATORY | | + + + + + + | Albumin/Masha | 0.4 (L) | 0.8 - 2.0 | [facility] | | | bulin Ratio | | | [facility] | | | | | | MEDICAL | | | | | | CENTER - | | | | | | LABORATORY | | + + + + + + | BUN/Creatin | 5.1 | | [facility] | | | ine [...] + + | [facility] | [address] | [place] | [phone] | | [facility] | | [address] | | | - LABORATORY | | | | + + + + + documented in this encounter Visit Diagnoses + + | Diagnosis | + + | Hepatic cirrhosis, unspecified hepatic cirrhosis type, unspecified whether ascites | | present (HCC) - Primary | + + documented in this encounter"
--- OUTSIDE RECORDS SUMMARY | ~2020-05-13 | XMS | Encounter Summary ---
Demographics + + + | Address | [address] | | | [place] [address] | + + + | Home Phone | | + + + | Preferred Language | Unknown | + + + | Marital Status | Single | + + + | Mandaen Affiliation | Unknown | + + + | Race | or | + + + | Ethnic Group | Not or | + + + Author + + + | Author | [facility] | | | and [place] | + + + | Organization | [facility] | | | [...] Team Providers + +------+ + | Care Concentrator Operator Name | Role | Phone | + +------+ + | Orly Villavicencio MD | PCP | | + +------+ + Reason for Visit + +--------+ + | Reason | Onset | Comments | | | Date | | + +--------+ + | Colon Cancer | 12/22/ | | | Screening | 2017 | | + +--------+ + Encounter Details +--------+ + + + + | Date | Type | Department | Care Team | Description | +--------+ + + + + | 12/22/ | Patient | [facility] | Orly Villavicencio | Preventive | | 2017 | Outreach | [address]IC[address] | [address] | Screening, PHST | | | | [place], | [facility] | Colon Cancer | | | | [place] [address] | [place] [address] | Screening | | | | [phone] | [phone] | | | | | | | [...] this encounter Miscellaneous Notes Telephone Encounter - Regla Carter - 12/22/2016 8:16 AM PDTAutomated reminder text se nt to patient for the following due services: Colorectal Cancer Screening Please inform patient of due services. Please contact Population Health Support Team at if you have any questions regarding this message. documented in this enco unter Plan of Treatment Not on filedocumented as of this encounter Visit Diagnoses Not on filedocumented in this encounter"
--- OUTSIDE RECORDS SUMMARY | ~2020-05-13 | XMS | Encounter Summary ---
Demographics + + + | Address | [address] | | | [place] [address] | + + + | Home Phone [...] Author + + + | Author | [facility] | | | and [place] | + + + | Organization | [facility] | | | [...] Team Providers + +------+ + | Care Manager Applied Name | Role | Phone | + +------+ + | Orly Villavicencio MD | PCP | | + +------+ + Reason for Visit +--------+--------+ + | Reason | Onset | Comments | | | Date | | +--------+--------+ + | Other | 04/24/ | | | | 2014 | | +--------+--------+ + Encounter Details +--------+ + + + + | Date | Type | Department | Care Team | Description | +--------+ + + + + | 04/24/ | Telephone | [facility] | Orly Villavicencio | Other | | 2015 | | MEDICINE [address] | [address] | | | | | [place], | [place] | | | | | [place] [address] | [place] [address] | | | | | [phone] | [phone] | | | | | | | [...] Telephone Encounter - Nay Sykes RN - 04/24/2015 2:22 PM PDTAlecia calls. She states that patient will be following up with Dr. Jimenez on 05/02/15 at [facility]. documented in t his encounter Plan of Treatment Not on filedocumented as of this encounter Visit Diagnoses Not on filedocumented in this encounter"
--- OUTSIDE RECORDS SUMMARY | ~2020-05-13 | XMS | Encounter Summary ---
Demographics + + + | Address | [address] | | | [place] [address] | + + + | Home Phone | | + + + | Preferred Language | Unknown | + + + | Marital Status | Single | + + + | Adventist Affiliation | NON | + + + | Race | or | + + + | Ethnic Group | Not or | + + + Author + + + | Author | [facility] | + + + | Organization | [facility] | + + + | Address | Unknown | + + + | Phone | Unavailable | + + + Support + + +---------+ + | Name | Relationship | Address | Phone | + + +---------+ + | Kacey Holcomb | ECON | Unknown | | + + +---------+ + Care Team Providers + +------+ + | Care Knurling Machine Operator Name | Role | Phone | + +------+ + PCP | Unavailable | + +------+ + Reason for Visit + + + | Reason | Comments | + + + | Neck pain | follow up | + + + Encounter Details +--------+---------+ + + + | Date | Type | Department | Care Team | Description | +--------+---------+ + + + | 08/23/ | Office | Orthopaedic Spine | Lyly Jackson PA | Vertebral Fracture | | 2007 | Visit | Center at [facility] [address] | [address] | (Primary Dx) | | | | [address] | [place], | | | | | Mailcode: [id number] | [place] [address] | | | | | [facility] | [phone] | | | | | and Healing, | | | | | | Building [address] | | | | | | Floor [place], [place] | | | | | | [address] | | | | | | [phone] | | | +--------+---------+ + + + Social History + + + +--------+------+ | Tobacco Use | Types | Packs/Day | Years | Date | | | | | Used | | + + + +--------+------+ | Current Every Day | Cigarettes | 1 | | | | Smoker | | | | | + + + +--------+------+ + + +---------+ + | Alcohol Use | Drinks/Week | oz/Week | Comments | + + +---------+ + | Yes | | | Not drinking | | | | | currently, usually | | | | | 12 pack a night | + + +---------+ + + + + | Sex Assigned at | Date Recorded | | | | + + + | Not on file | | + + + documented as of this encounter Progress Willow Zapata - 08/23/2007 11:45 AM Jane Holcomb is a 51 y.o. Male who was previously seen by DAWN Jackson for a non operative c6 and c7 fracture. He has been tolerating his co llar well, but is anxious to find out if he is able to be without it. He states that he feel s sore and stiff at his neck, but the original pain has subsided pretty well. He denies numb ness or tingling in his hands or fingers. Patient is alert and oriented and presents today in his collar. He does not have tenderness to c spine palpation. He can move his neck without apparent distress or difficulty but does not have normal range of motion and tends to move at his waist more than at the neck. New xrays were taken today and reviewed with Dr. Navas in the clinic. Dr. Navas was not entirel y sure that there was a fracture and earlier read of films from radiology suggested anterior wedging and loss of height. Assessment is possible C6-7 fractures treated non op, probably pre existing loss of vertebr al height. Plan to discontinue brace and prescribe physical therapy. 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 Patient to follow up in six to eight additional weeks with repeat c spine films. He was adv sied that range must be normalized prior to return to work and informed to call us prior to his next scheduled visit if he was experiencing increasing pain or other issues. Non op c6-7 fracture Reviewed films with dr. 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 | + +--------+ + + + documented in this encounter Results SPINE CERVICAL 3 VIEWS (08/23/2007 11:20 AM PST) + + + + + + | Component | Value | Ref Range | Performed | Pathologist | | | | | At | Signature | + + + + + + | SPINE, | Radiologist 1: ROLANDO, | | | | | CERVICAL, 3 | [facility]: SPINE | | | | | VIEWS | CERV 3 VW 08/23/07 | | | | | | 11:20:00COMPARISON: | | | | | | 07/26/07DISCUSSION:Anteri | | | | | | or wedging of C7 with | | | | | | 30% loss of anterior | | | | | | height isunchanged. | | | | | | The remaining | | | | | | vertebral body heights | | | | | | of the cervicalspine are | | | | | | maintained. There is | | | | | | unchanged C5-C6 and | | | | | | C6-C7 discspace | | | | | | narrowing and spurring, | | | | | | and facet and | | | | | | uncovertebralarthropathy | | | | | | at those levels. The | | | | | | atlantodens interval is | | | | | | normal.No pre-vertebral | | | | | | soft tissue swelling is | | | | | | present.Flexion-extensio | | | | | | n views demonstrate no | | | | | | dynamic | | | | | | instability.IMPRESSION:1 | | | | | | . Unchanged anterior | | | | | | wedging of C7.2. | | | | | | Unchanged C5-C6 and | | | | | | C6-C7 degenerative disc | | | | | | disease.3. No dynamic | | | | | | instability between | | | | | | flexion-extension. | | | | + + + + + + + + | Specimen | + + | | + + + +---------+ + + | Performing | Address | City/State/Zipcode | Phone Number | | Organization | | | | + +---------+ + + | [place] [facility] | | | | | [facility] | | | | + +---------+ + + documented in this encounter Visit Diagnoses + + | Diagnosis | + + | Vertebral fracture - Primary Closed fracture of unspecified part of vertebral column | | without mention of spinal cord injury | + + documented in this encounter"
--- OUTSIDE RECORDS SUMMARY | ~2020-05-13 | XMS | Encounter Summary ---
Demographics + + + | Address | [address] | | | [place] [address] | + + + | Home Phone | | + + + | Preferred Language | Unknown | + + + | Marital Status | Single | + + + | Alevism Affiliation | Unknown | + + + | Race | or | + + + | Ethnic Group | Not or | + + + Author + + + | Author | [facility] | | | and [place] | + + + | Organization | [facility] | | | [...] Team Providers + +------+ + | Care Merchandising Execution Associate Name | Role | Phone | + +------+ + | Orly Villavicencio MD | PCP | | + +------+ + Reason for Visit + + + | Reason | Comments | + + + | Follow-up | 1 month follow up | + + + Encounter Details +--------+---------+ + + + | Date | Type | Department | Care Team | Description | +--------+---------+ + + + | 06/01/ | Office | [facility] | Orly Villavicencio | Alcoholic liver | | 2018 | Visit | [address]IC[address] | [address] | disease (HCC) | | | | [place], | [place] | (Primary Dx); | | | | [place] [address] | [facility] [place] [address] | Chronic hepatitis C | | | | [phone] | [phone] | without hepatic coma | | | | | | (HCC); Hepatic | | | | | | cirrhosis, | | | | | | unspecified hepatic | | | | | | cirrhosis type, | | | | | | unspecified whether | | | | | | ascites present | | | | | | (HCC); Depression, | | | | | | unspecified | | | | | | depression type; | | | | | | Anxiety | +--------+---------+ + + + Social History [...] + + + | Blood Pressure | 132/68 | 06/01/2018 9:48 AM | | | | | PDT | | + + + + + | Pulse | 82 | 06/01/2018 9:48 AM | | | | | PDT | | + + + + + | Temperature | 37.1 C (98.8 F) | 06/01/2018 9:48 AM | | | | | PDT | | + + + + + | Respiratory Rate | 12 | 06/01/2018 9:48 AM | | | | | PDT | | + + + + + | Oxygen Saturation | 96% | 06/01/2018 9:48 AM | | | | | PDT | | + + + + + | Inhaled Oxygen | - | - | | | Concentration | | | | + + + + + | Weight | 102.6 kg (226 lb 3.1 | 06/01/2018 9:48 AM | | | | oz) | PDT | | + + + + + | Height | 177.8 cm (5' 10") | 06/01/2018 9:48 AM | | | | | PDT | | + + + + + | Body Mass Index | 32.46 | 06/01/2018 9:48 AM | | | | | PDT | | + + + + + documented in this encounter Patient Instructions Patient Instructions Orly Villavicencio MD - 06/01/2018 10:15 AM PDTTake the new pil l NORTRIPTYLINE - this is an anxiety medication that will also help you sleep. Follow up in 1 month. 10: 35 AM PDT documented in this encounter Progress Notes Orly Villavicencio MD - 06/01/2018 10:15 AM PDTFormatting of this note might be diff erent from the original. Chief Complaint Patient presents with Follow-up 1 month follow up HPI: Hossein Holcomb is here by himself. He has known history of alcoholism, hepatitis C i nfection, probable liver cirrhosis (as seen on US). Today, he reports having quit drinking almost 2 weeks ago. He quite this "cold turkey". He was also placed on 80 mg of furosemide and 100 mg of spironolactone last visit due to fluid retention in his legs and ascites. He has lost almost 40 lbs of water weight since then and he reports feeling overall very go od. He is pleased with his progress. Due to cramping of his fingers, he decided to decrease his dose of furosemide to 40 mg. He takes KCl as needed for cramping. Last intake of this wa s 3 days ago. He continues to complain about anxiety and depression. Still dealing with a lot of personal stress. He has been taking Lorazepam at night to help him sleep. Has trouble sleeping at night. Has had suicidal thoughts, but he reports he has no "plans" and that his suicidal ideations have diminished since his last visit. Past Medical History: Diagnosis Date Chest trauma, penetrating bucked off a horse Pneumonia Current Outpatient Prescriptions on File Prior to Visit Medication Sig Dispense Refill Lactulose 20 GM/30ML SOLN Take 20 g by mouth 3 times daily. or more to produce 2-3 soft stools a day. 2000 mL 1 LORazepam (ATIVAN) 1 mg tablet take 1 tablet by mouth every 6 hours if needed for anxie ty 20 tablet 0 spironolactone (ALDACTONE) 100 MG tablet Take 1 tablet by mouth Daily. 90 tablet 0 No current facility-administered medications on file prior to visit. No Known Allergies ROS: Denies chest pain, shortness of breath, palpitations. Denies fever, cough colds. Denies any new bladder or bowel disturbances. Denies falls. Physical Examination: BP 132/68 | Pulse 82 | Temp 37.1 C (98.8 F) (Temporal) | Resp 12 | Ht 1.778 m (5' 1 0") | Wt 102.6 kg (226 lb 3.1 oz) | SpO2 96% | BMI 32.46 kg/m General Appearance: Patient not in pain or any respiratory distress. HEENT: [place] conjunctivae, anicteric sclerae. No neck vein engorgement. Thyroid not enlarg ed. Cardiovascular: Good S1S2, No murmurs. No rubs/gallops. Rhythm regular. Respiratory: Clear breath sounds. No crackles/wheezes. Musculoskeletal: Trace pedal edema. No open wounds. GI: Abdomen soft with normoactive bowel sounds. No rebound tenderness or guarding. No CVA tenderness. No masses/bruits. Ascites seems to have resolved. He has no asterixis. Assessment and Plan: 1. Alcoholic liver disease (HCC) 2. Chronic hepatitis C without hepatic coma (HCC) 3. Hepatic cirrhosis, unspecified hepatic cirrhosis type, unspecified whether ascites prese nt (HCC) 4. Depression, unspecified depression type 5. Anxiety He is congratulated on his abstinence from alcohol. He is advised to continue on his iuretics. Check bloodwork today to check on GFR and electrolytes and LFTs. Check AFP. He is advised to start nortriptyline to help treat his mood disorder and insomnia. Rationale for this was discussed. He is advised that this will take a few weeks to take eff ect. Hopefully will help keep him from drinking. Did not tolerate Lexapro well in the past. Spent 25 minutes in [id number] time with the patient, with greater than 50% of time spent in counseling and discussion of the above mentioned problems. Return in about 4 weeks (around 06/29/2018) for follow up. documented i n this encounter Plan of Treatment Not on filedocumented as of this encounter Procedures + +--------+ + + + | Procedure Name | Priori | Date/Time | Associated Diagnosis | Comments | | | ty | | | | + +--------+ + + + | LABS - EXTERNAL SCAN | | 05/25/2018 | | Results for this | | | | 12:00 AM | | procedure are in the | | | | PDT | | results section. | + +--------+ + + + | ECG - EXTERNAL SCAN | | 05/25/2018 | | Results for this | | | | 12:00 AM | | procedure are in the | | | | PDT | | results section. | + +--------+ + + + documented in this encounter Results LABS - EXTERNAL SCAN (05/25/2018 12:00 AM PDT) + + + | Narrative | Performed At | + + + | Ordered by an | | | unspecified provider. | | + + + ECG - EXTERNAL SCAN (05/25/2018 12:00 AM PDT) + + + | Narrative | Performed At | + + + | Ordered by an | | | unspecified provider. | | + + + documented in this encounter Visit Diagnoses + + | Diagnosis | + + | Alcoholic liver disease (HCC) - Primary Alcoholic liver damage, unspecified | + + | Chronic hepatitis C without hepatic coma (HCC) | + + | Hepatic cirrhosis, unspecified hepatic cirrhosis type, unspecified whether ascites | | present (HCC) | + + | Depression, unspecified depression type | + + | Anxiety Anxiety state, unspecified | + + documented in this encounter
--- OUTSIDE RECORDS SUMMARY | ~2020-05-13 | XMS | Clinical Summary ---
Demographics + + + | Address | [address] | | | [place] [address] | + + + | Home Phone | | + + + | Preferred Language | Unknown | + + + | Marital Status | Single | + + + | Zoroastrianism Affiliation | NON | + + + | Race | or | + + + | Ethnic Group | Not or | + + + Author + + + | Author | NON REVENUE LOCATIONS | + + + | Organization | NON REVENUE LOCATIONS | + + + | Address | Unknown | + + + | Phone | Unavailable | + + + Support + + +---------+ + | Name | Relationship | Address | Phone | + + +---------+ + | Kacey Holcomb | ECON | Unknown | | + + +---------+ + Care Team Providers + +------+ + | Care Courtroom Reporter Name | Role | Phone | + +------+ + PCP | Unavailable | + +------+ + Source Comments LELA is fully live on both [facility] and [facility] Allergies No Known Allergies Medications + + + +---------+------+------+-------+ | Medication | Sig | Dispensed | Refills | Star | End | Statu | | | | | | t | Date | s | | | | | | Date | | | + + + +---------+------+------+-------+ | | take one every 6-8 | 40 | 0 | 01/0 | | Activ | | Hydrocodone-Acetamin | hours as needed for | | | 2/20 | | e | | ophen (VICODIN) | pain, not to exceed | | | 08 | | | | 5-500 mg Oral Tablet | 5 in 24 hours | | | | | | + + + +---------+------+------+-------+ Active Problems + + + | Problem | Noted Date | + + + | Vertebral fracture | 07/25/2007 | + + + Social History + + [...] on file | | + + + Last Filed Vital Signs + + + + + | Vital Sign | Reading | Time Taken | Comments | + + + + + | Blood Pressure | - | - | | + + + + + | Pulse | 88 | 07/26/2007 12:52 PM | | | | | PST | | + + + + + | Temperature | - | - | | + + + + + | Respiratory Rate | - | - | | + + + + + | Oxygen Saturation | - | - | | + + + + + | Inhaled Oxygen | - | - | | | Concentration | | | | + + + + + | Weight | 88.5 kg (195 lb) | 07/26/2007 12:52 PM | | | | | PST | | + + + + + | Height | 177.8 cm (5' 10") | 07/26/2007 12:52 PM | | | | | PST | | + + + + + | Body Mass Index | 27.98 | 07/26/2007 12:52 PM | | | | | PST | | + + + + + Plan of Treatment + + +-------+ + | Health Maintenance | Due Date | Last | Comments | | | | Done | | + + +-------+ + | Pneumococcal | | | | | vaccination (1 of | 4 | | | | - PPSV23) | | | | + + +-------+ + | Influenza (Flu) | | | | | vaccination (#1) | 0 | | | + + +-------+ + Results Not on filefrom Last 3 Months Insurance + +--------+ +--------+-------+---------+--------+ | Payer | Benefi | Subscriber | Effect | Phone | Address | Type | | | t Plan | ID | colt | | | | | | / | | Dates | | | | | | Group | | | | | | + +--------+ +--------+-------+---------+--------+ | [facility] | | [id number] | Effect | | | Agency | | SERVICE | | | colt | | | | | | HEALTH | | for | | | | | | | | all | | | | | | SERVIC | | dates | | | | | | E | | | | | | + +--------+ +--------+-------+---------+--------+ + +--------+ +--------+ + + | Guarantor Name | Accoun | Relation to | Date | Phone | Billing Address | | | t Type | Patient | of | | | | | | | | | | + +--------+ +--------+ + + | Hossein Holcomb | Person | Self | [birth year] | | [address] | | | al/Fam | | 1955 | [phone] | [place] [address] | | | alex | | | 1 (Home) | | + +--------+ +--------+ + + | Hossein Holcomb | Third | Self | [birth year] | | [address] | | | Alliance Party | | 1955 | [address] | [place] [address] | | | Liabil | | | 1 (Home) | | | | ity | | | | | + +--------+ +--------+ + +
--- OUTSIDE RECORDS SUMMARY | ~2020-05-13 | XMS | Encounter Summary ---
Demographics + + + | Address | [address] | | | [place] [address] | + + + | Home Phone | | + + + | Preferred Language | Unknown | + + + | Marital Status | Single | + + + | Adventist Affiliation | Unknown | + + + [...] Team Providers + +------+ + | Care Security Controls Assessor Name | Role | Phone | + +------+ + | Orly Villavicencio MD | PCP | | + +------+ + Reason for Visit + +--------+ + | Reason | Onset | Comments | | | Date | | + +--------+ + | Medication Refill | 08/24/ | | | | 2019 | | + +--------+ + Encounter Details +--------+--------+ + + + | Date | Type | Department | Care Team | Description | +--------+--------+ + + + | 08/24/ | Refill | [facility] | Orly Villavicencio | Medication Refill | | 2019 | | [address] | [address] | | | | | [place], | [place] [facility] | | | | | [place] [address] | [facility] [place] [address] | | | | | [phone] | [phone] | | | | | | | [...]
--- OUTSIDE RECORDS SUMMARY | ~2020-05-13 | XMS | Encounter Summary ---
Demographics + + + | Address | [address] | | | [place] [address] | + + + | Home Phone | | + + + | Preferred Language | Unknown | + + + | Marital Status | Single | + + + | Caodaism Affiliation | Unknown | + + + | Race | or | + + + | Ethnic Group | Not or | + + + Author + + + | Author | [facility] | | | and [place] | + + + | Organization | [facility] | | | and [...] Team Providers + +------+ + | Care Coil Winding Machines Set Up Mechanic Name | Role | Phone | [...] | 07/27/ | Refill | [facility] | Orly Villavicencio | Medication Refill | | 2019 | | [address] | [address] | | | | | [place], | [place] | | | | | [place] [address] | [place] [address] | | | | | [phone] | [phone] | | | | | | | [...]
--- OUTSIDE RECORDS SUMMARY | ~2020-05-13 | XMS | Clinical Summary ---
Demographics + + + | Address | [address] | | | [place] [address] | + + + | Home Phone | | + + + | Preferred Language | Unknown | + + + | Marital Status | Single | + + + | Gnosticism Affiliation | Unknown | + + + | Race | or | + + + | Ethnic Group | Not or | + + + Author + + + | Author | [facility] | | | and [place] | + + + | Organization | [facility] | | [...] Team Providers + +------+ + | Care Gill Net Stringer Name | Role | Phone | + [...] | +--------+ + + + + | 04/22/ | Telephone | Case Management | Orly Villavicencio | [facility] | | 2020 | | | MD Shimon | | +--------+ + + + + | 04/21/ | Telephone | Internal Medicine | rOly Villavicencio | [facility] Follow-up | | 2020 | | | MD [...] | + +--------+ + + + | IMAGING REPORT - | | 04/17/2020 | | Results for this | | EXTERNAL SCAN | | 12:00 AM | | procedure are in the | | | | PDT | | results section. | + +--------+ + + + | LABS - EXTERNAL SCAN | | 04/16/2020 | | Results for this | | | | 12:00 AM | | procedure are in the | | | | PDT | | results section. | + +--------+ + + + | LABS - EXTERNAL SCAN | | 04/16/2020 | | Results for this | | | | 12:00 AM | | procedure are in the | | | | PDT | | results section. | + +--------+ + + + from Last 3 Months Results IMAGING REPORT - EXTERNAL SCAN (04/17/2020 12:00 AM PDT) + + + | Narrative | Performed At | + + + | Ordered by an | | | unspecified provider. | | + + + LABS - EXTERNAL SCAN (04/16/2020 12:00 AM PDT)Only the most recent of 2 results within the time period is included. + + + | Narrative | Performed At | + + + | Ordered by an | | | unspecified provider. | | + + + from Last 3 Months [...] +---------+--------+ | MEDICAID [place] | MEDICA | [id number] | 09/24/19 | [phone] | | Medica [...] Person | Self | [birth year] | [address] | | [place] | jhonny/[place] | | 8 | [phone] | [place] [address] | | | alex | | | 3 (Home) | | + +--------+ +--------+ + + | Hossein Hoclomb | Person | Self | [birth year] | | [address] | | [place] | al/[place] | | 1956 | [phone] | [place] [address] | | | alex | | | 3 (Home) | | + +--------+ +--------+ + + Advance Directives + + + + + | Type | Date Recorded | Patient | Explanation | | | | Environmental Economist | | + + + + + | Power of | | | | | Security Public Safety Officer | | | | + + + + + | Advance | 04/06/2015 11:45 | | | | Directive | PM | | | + + + + +
--- OUTSIDE RECORDS SUMMARY | ~2020-05-13 | XMS | Encounter Summary ---
Demographics + + + | Address | [address] | | | [place] [address] | + + + | Home Phone | | + + + | Preferred Language | Unknown | + + + | Marital Status | Single | + + + | Anglican Affiliation | Unknown | + + + | Race | or | + + + | Ethnic Group | Not or | + + + Author + + + | Author | [facility] | | | and [place] | + + + | Organization | [facility] | | | [...] Team Providers + +------+ + | Care Management Consulting Name | Role | Phone | + [...] + + | 04/24/ | Office | [facility] | Orly Villavicencio | Hepatic cirrhosis, | | 2019 | Visit | [address]IC[address] | MD [address] | unspecified hepatic | | | | [place], | [facility] | cirrhosis type, | | | | [place] [address] | [place] [address] | unspecified whether | | | | [phone] | [phone] | ascites present | | | | [...] in pain or any respiratory distress. HEENT: [place] conjunctivae, anicteric sclerae. No neck vein engorgement. [...] as shown above. Spent 25 minutes in suln-of-agww time with the patient, with greater than [...] | [address] | [place] | [phone] | | [facility] | | [address] | | | - LABORATORY | | [...] + | [facility] | [address] | [place] | [phone] | | [facility] | | [address] | | | - LABORATORY | | [...] + | [facility] [facility] | [address] | [place] | [phone] | | [facility] | | [address] | | | - LABORATORY | | [...] | [address] | [place] | [phone] | | [facility] | | [address] | | | - LABORATORY | | [...] + + | Performed at: [address] [place] [address], | REFERENCE LAB | | [place], [place] [id number] Loss Prevention Specialist: Mukund Ponce MD, Phone: | [place] | | [phone] | | + + + + + + + + | Performing | Address | City/State/Zipcode | Phone Number | | Organization | | | | + + + + + | REFERENCE LAB | [address] | [place], [place] | [phone] | | [place] - MARK | [facility] | [address] | | + + + + + [...] [address] | [place] | [phone] | | [facility] | | [address] | | | - LABORATORY | | [...] | mL/min/1.73m2 | MARYBETH | | | Cymro | RATE,ESTIMATED | | MEDICAL | | | | mL/min/1.92a4Tqbt than | | CENTER - | | [...] + | [facility] | [address] | [place] | [phone] | | [facility] | | [address] | | | - LABORATORY | | [...] [address] | [place] | [phone] | | [facility] | | [address] | | | - LABORATORY | | [...]
--- OUTSIDE RECORDS SUMMARY | ~2020-05-13 | XMS | Encounter Summary ---
Demographics + + + | Address | [address] | | | [place] [address] | + + + | Home Phone [...] + + + | Author | [facility] | | | and [place] | + + + | Organization | [facility] | | | [...] Team Providers + +------+ + | Care Entertainment & Media Correspondent Name | Role | Phone | + +------+ + | Orly Villavicencio MD | PCP | | + +------+ + Reason for Visit +--------+--------+ + | Reason | Onset | Comments | | | Date | | +--------+--------+ + | Other | 05/18/ | Appointment | | | 2019 | | +--------+--------+ + Encounter Details +--------+ + + + + | Date | Type | Department | Care Team | Description | +--------+ + + + + | 05/18/ | Telephone | [facility] | [facility], | Other (Appointment) | | 2019 | | GASTROENTEROLOGY | BONIFACIO [address] | | | | | [address] [place] | [facility] [address] | | | | | [address] [place], [place] | [place] | | | | | [address] | [id number] | | | | | [phone] | | | +--------+ + + + [...] this encounter Miscellaneous Notes Telephone Encounter - Kendy Ashby - 05/22/2019 12:43 PM PDTPatient is scheduled for a n apt with Aleyda on Jun 18. Closing encounter. elephone Encounter - Sarah Sanchez CMA - 05/22/2019 11:14 AM Sawyer has said she will see patient in office. elephone Encounter - Lacy Ordoñez - 05/18/2019 10:2 [address] Villavicencio's office called to make an appointment with Barb Bill for patient Hossein. Informed Nay that the patient has been dismissed from the clinic for no show activity to which Nay stated Aleyda had agreed to see the patient of 05-18-19. Infor [facility] we would like to wait to schedule until Tuesday when Aleyda is in the office just to double check if it is okay to schedule. Nay verbalized understanding and will give our cli marcie number to the patients sister Annelise and will have her call us on Tuesday. documented in this encounter Plan of Treatment Not on filedocumented as of this encounter Visit Diagnoses Not on filedocumented in this encounter"
--- OUTSIDE RECORDS SUMMARY | ~2020-05-13 | XMS | Encounter Summary ---
Demographics + + + | Address | [address] | | | [place] [address] | + + + | Home Phone | | + + + | Preferred Language | Unknown | + + + | Marital Status | Single | + + + | Latter-Day Affiliation | Unknown | + + + | Race | or | + + + | Ethnic Group | Not or | + + + Author + + + | Author | [facility] | | | and [place] | + + + | Organization | [facility] | | | and [...] Team Providers + +------+ + | Care Structural Steel Detailer Name | Role | Phone | + +------+ + | Orly Villavicencio MD | PCP | | + +------+ + Reason for Visit +---------+--------+ + | Reason | Onset | Comments | | | Date | | +---------+--------+ + | Results | 02/02/ | | | | 2020 | | +---------+--------+ + Encounter Details +--------+ + + + + | Date | Type | Department | Care Team | Description | +--------+ + + + + | 02/02/ | Telephone | [facility] | Orly Villavicencio | Results | | 2020 | | MEDICINE [address] | MD [address] | | | | | [place], | [place] | | | | | [place] [address] | [place] [address] | | | | | [phone] | [phone] | | | | | | | [...] Telephone Encounter - Natalia Hastings RN - 02/05/2020 10:32 AM PDTPatient notified and melissa balized understanding. He was only taking the lactulose one time a day. Agrees to increase as advised. elephone Encounter - Lesia Hastings - 02/05/2020 10:12 AM PDTPatient returned call to speak with the nurse. Please call patient at [phone].Electronically signed by Lesia funez 02/05/2020 10:13 AM PDTTelephone Encounter - Natalia Hastings RN - 02/05/2020 10:08 AM PDT Call to patient. No voicemail. No answerElectronically signed by Natalia Hastings RN at 10:08 AM PDTTelephone Encounter - Natalia Hastings RN - 02/04/2020 10:04 AM PDTCall to patient. No voicemail. No answer.Electronically signed by Natalia Hastings RN at 020 10:05 AM PDTTelephone Encounter - Orly Villavicencio MD - 02/03/2020 6:33 AM PDT Please let patient know labs showed: His ammonia level is elevated. This suggests he is not getting enough lactulose. Please ask if he is taking and if so, how much? He should be taking it at least 2-3x a day or as much as it takes to produce 2-3 soft stool s a day. Thanks. documented i n this encounter Plan of Treatment Not on filedocumented as of this encounter Visit Diagnoses Not on filedocumented in this encounter
--- OUTSIDE RECORDS SUMMARY | ~2020-05-13 | XMS | Encounter Summary ---
Demographics + + + | Address | [address] | | | [place] [address] | + + + | Home Phone | | + + + | Preferred Language | Unknown | + + + | Marital Status | Single | + + + | Yazdanism Affiliation | NON | + + + | Race | or | + + + | Ethnic Group | Not or | + + + Author + + + | Author | [email or web address] | + + + | Organization | [facility] | + + + | Address | Unknown | + + + | Phone | Unavailable | + + + Support + + +---------+ + | Name | Relationship | Address | Phone | + + +---------+ + | Kacey Holcomb | ECON | Unknown | | + + +---------+ + Care Team Providers + +------+ + | Care Panel Fitter Name | Role | Phone | + +------+ + | Pattie Sims | PCP | | + +------+ + Reason for Visit + + + | Reason | Comments | + + + | Neck pain | follow up | + + + Office Visit - E/M Services (Routine) +--------+--------+ + + + + | Status | Reason | Specialty | Diagnoses / | Referred By | Referred To | | | | | Procedures | Contact | Contact | +--------+--------+ + + + + | Closed | | Orthopedic | Diagnoses | Non-[facility] | Chino Navas, | | | | Surgery / | Cervical Fx | Epic Dept | [address] | | | | Orthopedics | Procedures | | [address] | | | | | [place] | | [place] | | | | | OFFICE/OUTPT | | [place], [place] | | | | | | | [address] | | | | | VISIT,EST,LE | | Phone: | | | | | [address] | | [phone] | | | | | | | Fax: | | | | | | | [phone] | +--------+--------+ + + + + Encounter Details +--------+---------+ + + + | Date | Type | Department | Care Team | Description | +--------+---------+ + + + | 10/18/ | Office | Orthopaedic Spine | Chino Navas MD | Vertebral Fracture | | 2007 | Visit | [facility] at [facility] [address] | [address] | (Primary Dx) | | | | [address] | [place], | | | | | Mailcode: CH8N | [place] [address] | | | | | [facility] | [phone] | | | | | and [place], | | | | | | [facility] | | | | | | [address], [place] | | | | | | [address] | | | | | | [phone] | | | +--------+---------+ + + + [...] + documented as of this encounter Progress Chino Holliday - 10/18/2007 2:27 PM Jane Holcomb is a 51 y.o. male status post cervical i njury. Overall, he is doing very well and happy with the outcome. There is no complaints of any weakness or significant pain. Good neck range of motion is noted. The patient will follow up with me VENTURA. 2: 27 PM PSTdocumented in this encounter Plan of Treatment Not on filedocumented as of this encounter Procedures + +--------+ + + + | Procedure Name | Priori | Date/Time | Associated Diagnosis | Comments | | | ty | | | | + +--------+ + + + | X-RAY SPINE CERVICAL | Routin | 10/18/2007 | Vertebral Fracture | Results for this | | 2 VIEWS | e | 1:20 PM | | procedure are in the | | | | PST | | results section. | + +--------+ + + + documented in this encounter Results X-RAY SPINE CERVICAL 2 VIEWS (10/18/2007 1:20 PM PST) + + + + + + | Component | Value | Ref Range | Performed | Pathologist | | | | | At | Signature | + + + + + + | SPINE | STUDY: SPINE CERVICAL 2 | | | | | CERVICAL 2 | VIEWS 10/18/07 | | | | | VIEWS | 13:37:00COMPARISON: | | | | | | 08/23/07DISCUSSION:The | | | | | | anterior wedge | | | | | | compression deformity of | | | | | | C7 is not visualized in | | | | | | either the extension or | | | | | | flexion views secondary | | | | | | to overlying soft | | | | | | tissues.There is | | | | | | unchanged C5-C6 and | | | | | | C6-C7 disc space | | | | | | narrowing, spurring, | | | | | | uncovertebral, and facet | | | | | | arthropathy. The | | | | | | atlanto-odontoid | | | | | | interval is maintained. | | | | | | No prevertebral soft | | | | | | tissue swelling is | | | | | | present.There is no | | | | | | malalignment between | | | | | | flexion and extension | | | | | | within the visualized | | | | | | cervical | | | | | | spine.IMPRESSION:1. | | | | | | Nonvisualized C7 due | | | | | | to overlying soft | | | | | | tissues2. Unchanged | | | | | | degenerative disc | | | | | | disease C5-C6 and | | | | | | C6-C7.3. No dynamic | | | | | | instability.I have | | | | | | personally viewed this | | | | | | procedure/exam and | | | | | | reviewed this | | | | | | report.STATUS FINAL / | | | | | | Dr. ROLANDO MCDANIEL | | | | + + + + + + + + | Specimen | + + | | + + + +---------+ + + | Performing | Address | City/State/Zipcode | Phone Number | | Organization | | | | + +---------+ + + | [facility] | | | | | [...]
--- OUTSIDE RECORDS SUMMARY | ~2020-05-13 | XMS | Encounter Summary ---
Demographics + + + | Address | [address] | | | [place] [address] | + + + | Home Phone | | + + + | Preferred Language | Unknown | + + + | Marital Status | Single | + + + | Christianity Affiliation | Unknown | + + + | Race | or | + + + | Ethnic Group | Not or | + + + Author + + + | Author | [facility] | | | and [place] | + + + | Organization | [facility] | | | [...] Team Providers + +------+ + | Care Cpas Name | Role | Phone | + +------+ + | Orly Villavicencio MD | PCP | | + +------+ + Encounter Details +--------+ + + + + | Date | Type | Department | Care Team | Description | +--------+ + + + + | 06/29/ | Hospital | [facility] | Lesia Nagel, | | | 2016 | Encounter | [facility] | Need updated | | | | | [address] | address | | | | | [place] | | | | | | [address] | | | | | | [phone] | | | +--------+ + + + [...] + + documented as of this encounter Medications at Time of Discharge + + + +---------+ + + | Medication | Sig | Dispensed | Refills | Start | End Date | | | | | | Date | | + + + +---------+ + + | clindamycin | Take 1 capsule by | 40 | 0 | 06/29/20 | | | (CLEOCIN) 300 MG | mouth 4 times daily | capsule | | 16 | 6 | | capsule | for 10 days. | | | | | + + + +---------+ + + | furosemide (LASIX) | Take 1 tablet by | 30 | 1 | 03/23/20 | | | 40 mg tablet | mouth Daily. | tablet | | 16 | 7 | + + + +---------+ + + | | Take 1 tablet by | 20 | 0 | 06/29/20 | | | HYDROcodone-acetamin | mouth every 4 hours | tablet | | 16 | 6 | | ophen (NORCO) 5-325 | as needed for Pain | | | | | | mg per tablet | for up to 5 days. | | | | | + + + +---------+ + + | Lactulose 20 | Take 20 g by mouth 3 | 946 mL | 1 | 03/23/20 | | | GM/30ML SOLN | times daily. or | | | 16 | 8 | | | more to produce 2-3 | | | | | | | soft stools a day. | | | | | + + + +---------+ + + | LORazepam (ATIVAN) | Take 1 tablet by | 20 | 0 | 03/23/20 | | | 1 mg tablet | mouth every 6 hours | tablet | | 16 | 7 | | | as needed for | | | | | | | Anxiety (alcohol | | | | | | | withdrawal). | | | | | + + + +---------+ + + | potassium chloride | Take 1 tablet by | 30 | 1 | 03/23/20 | | | (K-DUR) 20 mEq ER | mouth Daily. | tablet | | 16 | 7 | | tablet | | | | | | + + + +---------+ + + | triamcinolone | Apply thin film to | 28.4 g | 2 | 03/24/20 | | | (KENALOG) 0.1% cream | affected area(s) | | | 16 | 8 | | | three times daily | | | | | | | for 2 weeks. Avoid | | | | | | | face and groin areas | | | | | + + + +---------+ + + documented as of this encounter [...] + | Keegan, Rad Results In - 06/29/2016 12:04 PM PST [...] | [facility] | [address] | [place] | [phone] | | [facility] | | [address] | | | - IMAGING | | | | + + + + + documented in this encounter Visit Diagnoses Not on filedocumented in this encounter"
--- OUTSIDE RECORDS SUMMARY | ~2020-05-13 | XMS | Encounter Summary ---
Demographics + + + | Address | [address] | | | [place] [address] | + + + | Home Phone | | + + + | Preferred Language | Unknown | + + + | Marital Status | Single | + + + | Denominational Affiliation | Unknown | + + + [...] Team Providers + +------+ + | Care Garment Tag Stringer Name | Role | Phone | + +------+ + | Orly Villavicencio MD | PCP | | + +------+ + Reason for Visit + +--------+ + | Reason | Onset | Comments | | | Date | | + +--------+ + | Appointment | 05/28/ | | | | 2019 | | + +--------+ + Encounter Details +--------+ + + + + | Date | Type | Department | Care Team | Description | +--------+ + + + + | 05/28/ | Telephone | [facility] | Orly Villavicencio | Appointment | | 2019 | | MEDICINE [address] | MD [address] | | | | | [place], | [place] | | | | | [place] [address] | [place] [address] | | | | | [phone] | | | | | | | [...] Telephone Encounter - Natalia Hastings RN - 05/28/2019 12:16 PM PDT Chart review shows this patient rescheduled todays appt to 06/19/19. Appointment notes of PSR: Cancel Rsn: Late Cancel (patient reschdule due to he has other appointment same time. ) [facility] Natalia Hastings RN - 05/28/2019 12:15 PM PDT[05/28/2019 9:02 AM] Calli Lewis D: the 10:15 am patient cancel. do you want me to remove him from the schedule? documented in this en counter Plan of Treatment Not on filedocumented as of this encounter Visit Diagnoses Not on filedocumented in this encounter"
--- OUTSIDE RECORDS SUMMARY | ~2020-05-13 | XMS | Encounter Summary ---
Demographics + + + | Address | [address] | | | [place] [address] | + + + | Home Phone [...] Author + + + | Author | [facility] | | | and [place] | + + + | Organization | [facility] | [...] Team Providers + +------+ + | Care Experimental Physicist Name | Role | Phone | + +------+ + | Orly Villavicencio MD | PCP | | + +------+ + Reason for Visit + + + | Reason | Comments | + + + | Follow-up | | + + + Encounter Details +--------+---------+ + + + | Date | Type | Department | Care Team | Description | +--------+---------+ + + + | 07/03/ | Office | [facility] | Orly Villavicencio | Hepatic cirrhosis, | | 2018 | Visit | MEDICINE [address] | MD [address] | unspecified hepatic | | | | [place], | Bill [facility] | cirrhosis type, | | | | [place] [address] | [place] [address] | unspecified whether | | | | [phone] | [phone] | ascites present | | | | | | (HCC) (Primary Dx); | | | | | | Alcoholism (HCC); | | | | | | Depression, | | | | | | unspecified | | | | | | depression type | +--------+---------+ + + + Social [...] + + + | Blood Pressure | 142/84 | 07/03/2019 9:48 AM | | | | | PST | | + + + + + | Pulse | 88 | 07/03/2019 9:48 AM | | | | | PST | | + + + + + | Temperature | 37.1 C (98.8 F) | 07/03/2019 9:48 AM | | | | | PST | | + + + + + | Respiratory Rate | 18 | 07/03/2019 9:48 AM | | | | | PST | | + + + + + | Oxygen Saturation | 98% | 07/03/2019 9:48 AM | | | | | PST | | + + + + + | Inhaled Oxygen | - | - | | | Concentration | | | | + + + + + | Weight | 106 kg (233 lb 11 | 07/03/2019 9:48 AM | | | | oz) | PST | | + + + + + | Height | - | - | | + + + + + | Body Mass Index | 33.53 | 06/19/2019 10:26 AM | | | | | PDT | | + + + + + documented in this encounter Patient Instructions Patient Instructions Nadja Khan KOSTAS - 07/03/2019 10:00 AM PSTPlease start Vitamin B co mplex and Thiamine (B1) - 1 capsule a day of each. These are over the counter. Electronicall y signed by Orly Villavicencio MD at 07/03/2019 10:09 AM PST documented in this encounter Progress Notes Orly Villavicencio MD - 07/03/2019 10:00 AM PSTFormatting of this note might be diff erent from the original. Chief Complaint Patient presents with Follow-up HPI: Hossein Holcomb is here with her girlfriend, Lesia, for follow up. He has known liver cirrhosis from alcoholic liver disease and hepatitis C infection. He has lost about 20 lbs since his last visit. Taking both furosemide and spironolactone. States he has been compliant with his medications. He has reduced his ETOH intake to 1 beer daily. Reports he is feeling much better, mind feels clearer. Depression is lifted, mood is much improved. He is sleeping well. Past Medical History: Diagnosis Date Chest trauma, penetrating bucked off a horse ETOH abuse EtOH dependence (HCC) Pneumonia Current Outpatient Medications on File Prior to Visit Medication Sig Dispense Refill B complex vitamins tablet Take 1 tablet by mouth Daily. furosemide (LASIX) 40 mg tablet 1 tablet a day. (Patient taking differently: 2 tablets a day.) 90 tablet 1 Lactulose 20 GM/30ML SOLN Take 20 g by mouth 3 times daily. or more to produce 2-3 soft stools a day. 2000 mL 1 LORazepam (ATIVAN) 1 mg tablet take 1 tablet by mouth every 6 hours if needed for anxie ty 15 tablet 0 nortriptyline (PAMELOR) 25 mg capsule Take 1 capsule by mouth nightly. 30 capsule 3 spironolactone (ALDACTONE) 50 mg tablet Take 1 tablet by mouth Daily. 90 tablet 1 thiamine (VITAMIN B-1) 100 mg tablet Take 1 tablet by mouth Daily. 90 tablet 1 No current facility-administered medications on file prior to visit. No Known Allergies ROS: Denies chest pain, shortness of breath, abdominal pain. Denies falls Physical Examination: BP 142/84 | Pulse 88 | Temp 37.1 C (98.8 F) (Temporal) | Resp 18 | Wt 106 kg (233 l b 11 oz) | SpO2 98% | BMI 33.53 kg/m General Appearance: Patient not in pain or any respiratory distress. HEENT: [place] conjunctivae, anicteric sclerae. No neck vein engorgement. Thyroid not enlarg ed. No enlarged lymph nodes in the head or neck. Respiratory: Clear breath sounds. No crackles/wheezes. Cardiovascular: Good S1S2, No murmurs. No rubs/gallops. Rhythm regular. Musculoskeletal: Trace pedal edema. No open wounds. GI: Abdomen soft with normoactive bowel sounds. No rebound tenderness or guarding. No tremors, asterixis. Assessment: 1. Hepatic cirrhosis, unspecified hepatic cirrhosis type, unspecified whether ascites prese nt (HCC) CBC with Differential Comprehensive Metabolic Panel Ammonia 2. Alcoholism (HCC) 3. Depression, unspecified depression type Plan: He has lost about 20 lbs of water weight since his last visit. Mental clarity is much improved. Mood is much improved. He is motivated to keep on taking his medications. He is advised close follow up. He is scheduled to see GI and have an updated US of the liver at the end of the month. Consider Naltrexone down the line. Currently though, he is doing well with nortriptyline and lorazepam. Return in about 27 days (around 07/30/2019) for follow up. Orly Sandhu MD, personally performed the services described in this documentation as sc ribed by Nadja Khan CMA, and the documentation is both accurate and complete. Encounter Note Electronically Signed by: Orly Villavicencio MD 07/03/2019 documented i n this encounter Plan of Treatment Not on filedocumented as of this encounter Procedures + +--------+ + + + | Procedure Name | Priori | Date/Time | Associated Diagnosis | Comments | | | ty | | | | + +--------+ + + + | EP PROCEDURE - | | 10/25/2019 | | Results for this | | EXTERNAL SCAN | | 12:00 AM | | procedure are in the | | | | PST | | results section. | + +--------+ + + + | IMAGING REPORT - | | 10/25/2019 | | Results for this | | EXTERNAL SCAN | | 12:00 AM | | procedure are in the | | | | PST | | results section. | + +--------+ + + + | IMAGING REPORT - | | 10/24/2019 | | Results for this | | EXTERNAL SCAN | | 12:00 AM | | procedure are in the | | | | PST | | results section. | + +--------+ + + + | PATHOLOGY - EXTERNAL | | 10/24/2019 | | Results for this | | SCAN | | 12:00 AM | | procedure are in the | | | | PST | | results section. | + +--------+ + + + | LABS - EXTERNAL SCAN | | 10/24/2019 | | Results for this | | | | 12:00 AM | | procedure are in the | | | | PST | | results section. | + +--------+ + + + | DIAGNOSTIC REPORT - | | 10/24/2019 | | Results for this | | EXTERNAL SCAN | | 12:00 AM | | procedure are in the | | | | PST | | results section. | + +--------+ + + + | ECG - EXTERNAL SCAN | | 10/24/2019 | | Results for this | | | | 12:00 AM | | procedure are in the | | | | PST | | results section. | + +--------+ + + + | RUSSIAN RUBBER REPORT - | | 10/24/2019 | | Results for this | | EXTERNAL SCAN | | 12:00 AM | | procedure are in the | | | | PST | | results section. | + +--------+ + + + | RUSSIAN RUBBER REPORT - | | 10/24/2019 | | Results for this | | EXTERNAL SCAN | | 12:00 AM | | procedure are in the | | | | PST | | results section. | + +--------+ + + + | IMAGING REPORT - | | 10/23/2019 | | Results for this | | EXTERNAL SCAN | | 12:00 AM | | procedure are in the | | | | PST | | results section. | + +--------+ + + + | LABS - EXTERNAL SCAN | | 10/23/2019 | | Results for this | | | | 12:00 AM | | procedure are in the | | | | PST | | results section. | + +--------+ + + + | LABS - EXTERNAL SCAN | | 10/23/2019 | | Results for this | | | | 12:00 AM | | procedure are in the | | | | PST | | results section. | + +--------+ + + + | ECG - EXTERNAL SCAN | | 10/23/2019 | | Results for this | | | | 12:00 AM | | procedure are in the | | | | PST | | results section. | + +--------+ + + + documented in this encounter Results IMAGING REPORT - EXTERNAL SCAN (10/25/2019 12:00 AM PST) + + + | Narrative | Performed At | + + + | Ordered by an | | | unspecified provider. | | + + + EP PROCEDURE - EXTERNAL SCAN (10/25/2019 12:00 AM PST) + + + | Narrative | Performed At | + + + | Ordered by an | | | unspecified provider. | | + + + DIAGNOSTIC REPORT - EXTERNAL SCAN (10/24/2019 12:00 AM PST) + + + | Narrative | Performed At | + + + | Ordered by an | | | unspecified provider. | | + + + PATHOLOGY - EXTERNAL SCAN (10/24/2019 12:00 AM PST) + + + | Narrative | Performed At | + + + | Ordered by an | | | unspecified provider. | | + + + LABS - EXTERNAL SCAN (10/24/2019 12:00 AM PST) + + + | Narrative | Performed At | + + + | Ordered by an | | | unspecified provider. | | + + + IMAGING REPORT - EXTERNAL SCAN (10/24/2019 12:00 AM PST) + + + | Narrative | Performed At | + + + | Ordered by an | | | unspecified provider. | | + + + RUSSIAN RUBBER REPORT - EXTERNAL SCAN (10/24/2019 12:00 AM PST) + + + | Narrative | Performed At | + + + | Ordered by an | | | unspecified provider. | | + + + RUSSIAN RUBBER REPORT - EXTERNAL SCAN (10/24/2019 12:00 AM PST) + + + | Narrative | Performed At | + + + | Ordered by an | | | unspecified provider. | | + + + ECG - EXTERNAL SCAN (10/24/2019 12:00 AM PST) + + + | Narrative | Performed At | + + + | Ordered by an | | | unspecified provider. | | + + + LABS - EXTERNAL SCAN (10/23/2019 12:00 AM PST) + + + | Narrative | Performed At | + + + | Ordered by an | | | unspecified provider. | | + + + LABS - EXTERNAL SCAN (10/23/2019 12:00 AM PST) + + + | Narrative | Performed At | + + + | Ordered by an | | | unspecified provider. | | + + + IMAGING REPORT - EXTERNAL SCAN (10/23/2019 12:00 AM PST) + + + | Narrative | Performed At | + + + | Ordered by an | | | unspecified provider. | | + + + ECG - EXTERNAL SCAN (10/23/2019 12:00 AM PST) + + + | Narrative | Performed At | + + + | Ordered by an | | | unspecified provider. | | + + + Ammonia (07/03/2019 10:28 AM PST) + +---------+ + + + | Component | Value | Ref Range | Performed | Pathologist | | | | | At | Signature | + +---------+ + + + | Ammonia | 104 (H) | 11 - 32 umol/L | [facility] | | | | | [facility] | | | | | [facility] | | | | | | [facility]ENTER - | | | | | | LABORATORY | | + +---------+ + + + + + | Specimen | + + | Blood | + + + + + + + | Performing | Address | City/State/Zipcode | Phone Number | | Organization | | | | + + + + + | [facility] | [address] | [place] | [phone] | | [facility] | | [address] | | | - LABORATORY | | | | + + + + + Comprehensive Metabolic Panel (07/03/2019 10:28 AM PST) + + + + + + | Component | Value | Ref Range | Performed | Pathologist | | | | | At | Signature | + + + + + + | Na | 135 (L) | 136 - 145 | [facility] | | | | | mmol/L | [facility] | | | | | | MEDICAL | | | | | | CENTER - | | | | | | LABORATORY | | + + + + + + | K | 4.4 | 3.4 - 5.1 | [facility] | | | | | mmol/L | [facility] | | | | | | MEDICAL | | | | | | CENTER - | | | | | | LABORATORY | | + + + + + + | Cl | 102 | 98 - 107 mmol/L | [facility] | | | | | | [facility] | | | | | | MEDICAL | | | | | | CENTER - | | | | | | LABORATORY | | + + + + + + | CO2 | 26 | 20 - 31 mmol/L | [facility] | | | | | | [facility] | | | | | | MEDICAL | | | | | | CENTER - | | | | | | LABORATORY | | + + + + + + | Anion Gap | 7 | 3 - 16 mmol/L | [facility] | | | | | | [facility] | | | | | | MEDICAL | | | | | | CENTER - | | | | | | LABORATORY | | + + + + + + | Glucose | 98 | 60 - 106 mg/dL | [facility] | | | | | | [facility] | | | | | | MEDICAL | | | | | | CENTER - | | | | | | LABORATORY | | + + + + + + | BUN | 8 (L) | 9 - 23 mg/dL | [facility] | | | | | | [facility] | | | | | | MEDICAL | | | | | | CENTER - | | | | | | LABORATORY | | + + + + + + | Creatinine | 0.86 | 0.70 - 1.30 | [facility] | | | | | mg/dL | [facility] | | | | | | MEDICAL | | | | | | CENTER - | | | | | | LABORATORY | | + + + + + + | eGFR, | >60Comment: GLOMERULAR | >=60 | [facility] | | | non- | FILTRATION | mL/min/1.73m2 | [facility] | | | [place] | RATE,ESTIMATED | | MEDICAL | | | | mL/min/1.90o5Vdtg than | | CENTER - | | [...] + + + + | Calcium | 8.8 | 8.7 - 10.4 | [facility] | | | | | mg/dL | [facility] | | | | | | MEDICAL | | | | | | CENTER - | | | | | | LABORATORY | | + + + + + + | Albumin | 4.0 | 3.2 - 4.8 g/dL | [facility] | | | | | | [facility] | | | | | | MEDICAL | | | | | | CENTER - | | | | | | LABORATORY | | + + + + + + | Bilirubin | 1.3 (H) | 0.3 - 1.2 mg/dL | [facility] | | | Total | | | [facility] | | | | | | MEDICAL | | | | | | CENTER - | | | | | | LABORATORY | | + + + + + + | Total | 9.1 (H) | 5.7 - 8.2 g/dL | [facility] | | | Protein | | | [facility] | | | | | | MEDICAL | | | | | | CENTER - | | | | | | LABORATORY | | + + + + + + | AST | 75 (H) | 0 - 34 U/L | [facility] | | | | | | [facility] | | | | | | MEDICAL | | | | | | CENTER - | | | | | | LABORATORY | | + + + + + + | ALT | 39 | 10 - 49 U/L | [facility] | | | | | | [facility] | | | | | | MEDICAL | | | | | | CENTER - | | | | | | LABORATORY | | + + + + + + | Alkaline | 229 (H) | 46 - 116 U/L | [facility] | | | Phosphatase | | | [facility] | | | | | | MEDICAL | | | | | | CENTER - | | | | | | LABORATORY | | + + + + + + | Globulin | 5.1 (H) | 2.1 - 3.8 g/dL | [facility] | | | | | | [facility] | | | | | | MEDICAL | | | | | | CENTER - | | | | | | LABORATORY | | + + + + + + | Albumin/Masha | 0.8 | 0.8 - 1.9 | [facility] | | | bulin Ratio | | | [facility] | | | | | | MEDICAL | | | | | | CENTER - | | | | | | LABORATORY | | + + + + + + | BUN/Creatin | 9.3 | | [facility] | | | ine [...] | + + + + + | [facility] | [address] | [place] | [phone] | | [facility] | | [address] | | | - LABORATORY | | | | + + + + + CBC with Differential (07/03/2019 10:28 AM PST) + + + + + + | Component | Value | Ref Range | Performed | Pathologist | | | | | At | Signature | + + + + + + | White Blood | 6.6 | 4.0 - 11.0 K/uL | [facility] | | | Cells | | | [facility] | | | | | | MEDICAL | | | | | | CENTER - | | | | | | LABORATORY | | + + + + + + | Red Blood | 5.05 | 4.30 - 5.70 | [facility] | | | Cells | | M/uL | [facility] | | | | | | MEDICAL | | | | | | CENTER - | | | | | | LABORATORY | | + + + + + + | Hemoglobin | 16.2 | 13.5 - 18.0 | [facility] | | | | | g/dL | [facility] | | | | | | MEDICAL | | | | | | CENTER - | | | | | | LABORATORY | | + + + + + + | Hematocrit | 47.1 | 40.0 - 51.0 % | [facility] | | | | | | [facility] | | | | | | MEDICAL | | | | | | CENTER - | | | | | | LABORATORY | | + + + + + + | MCV | 93.3 | 83.0 - 101.0 fL | [facility] | | | | | | [facility] | | | | | | MEDICAL | | | | | | CENTER - | | | | | | LABORATORY | | + + + + + + | MCH | 32.1 | 28.0 - 35.0 pg | [facility] | | | | | | [facility] | | | | | | MEDICAL | | | | | | CENTER - | | | | | | LABORATORY | | + + + + + + | MCHC | 34.4 | 32.0 - 36.0 | [facility] | | | | | g/dL | [facility] | | | | | | MEDICAL | | | | | | CENTER - | | | | | | LABORATORY | | + + + + + + | RDW-CV | 13.4 | <15.0 % | [facility] | | | | | | [facility] | | | | | | MEDICAL | | | | | | CENTER - | | | | | | LABORATORY | | + + + + + + | RDW-SD | 45.7 | 35.1 - 46.3 fL | [facility] | | | | | | [facility] | | | | | | MEDICAL | | | | | | CENTER - | | | | | | LABORATORY | | + + + + + + | Platelet | 81 (L) | 140 - 440 K/uL | [facility] | | | Count | | | [facility] | | | | | | MEDICAL | | | | | | CENTER - | | | | | | LABORATORY | | + + + + + + | MPV | 11.4 | 6.5 - 12.4 fL | [facility] | | | | | | [facility] | | | | | | MEDICAL | | | | | | CENTER - | | | | | | LABORATORY | | + + + + + + | Immature | 16.4 (H)Comment: Low PLT | 0.9 - 11.2 [...] + + + + | % | 51.5 | 45.0 - 82.0 % | [facility] | | | Neutrophils | | | [facility] | | | | | | MEDICAL | | | | | | CENTER - | | | | | | LABORATORY | | + + + + + + | % | 25.3 | 20.0 - 45.0 % | [facility] | | | Lymphocytes | | | [facility] | | | | | | MEDICAL | | | | | | CENTER - | | | | | | LABORATORY | | + + + + + + | % Monocytes | 16.8 (H) | 4.0 - 12.0 % | [facility] | | | | | | [facility] | | | | | | MEDICAL | | | | | | CENTER - | | | | | | LABORATORY | | + + + + + + | % | 4.4 | 0.0 - 5.0 % | [facility] | | | Eosinophils | | | [facility] | | | | | | MEDICAL | | | | | | CENTER - | | | | | | LABORATORY | | + + + + + + | % Basophils | 1.8 (H) | 0.0 - 1.0 % | [facility] | | | | | | [facility] | | | | | | MEDICAL | | | | | | CENTER - | | | | | | LABORATORY | | + + + + + + | % Immature | 0.2 | 0.0 - 0.4 % | [facility] | | | Granulocyte | | | [facility] | | | s | | | MEDICAL | | | | | | CENTER - | | | | | | LABORATORY | | + + + + + + | Absolute | 3.37 | 1.80 - 8.50 | [facility] | | | Neutrophils | | K/uL | [facility] | | | | | | MEDICAL | | | | | | CENTER - | | | | | | LABORATORY | | + + + + + + | Absolute | 1.66 | 0.60 - 3.20 | [facility] | | | Lymphocytes | | K/uL | [facility] | | | | | | MEDICAL | | | | | | CENTER - | | | | | | LABORATORY | | + + + + + + | Absolute | 1.10 (H) | 0.00 - 1.00 | [facility] | | | Monocytes | | K/uL | [facility] | | | | | | MEDICAL | | | | | | CENTER - | | | | | | LABORATORY | | + + + + + + | Absolute | 0.29 | 0.00 - 0.40 | [facility] | | | Eosinophils | | K/uL | [facility] | | | | | | MEDICAL | | | | | | CENTER - | | | | | | LABORATORY | | + + + + + + | Absolute | 0.12 (H) | 0.00 - 0.10 | [facility] | | | Basophils | | K/uL | [facility] | | | | | | MEDICAL | | | | | | CENTER - | | | | | | LABORATORY | | + + + + + + | Absolute | 0.01 | 0.00 - 0.03 | [facility] | [...] | | | | | WBCs | [facility] | | | | | | MEDICAL | | | | | | CENTER - | | | | | | LABORATORY | | + + + + + + | Absolute | 0.00 | 0.00 - 0.01 | [facility] | | | nRBC | | K/uL | [facility] | [...] [address] | [place] | [phone] | | [facility] | | [address] | | | - LABORATORY | | | | + + + + + documented in this encounter Visit Diagnoses + + | Diagnosis | + + | Hepatic cirrhosis, unspecified hepatic cirrhosis type, unspecified whether ascites | | present (HCC) - Primary | + + | Alcoholism (HCC) Other and unspecified alcohol dependence, unspecified drinking | | behavior | + + | Depression, unspecified depression type | + + documented in this encounter
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
--- OUTSIDE RECORDS SUMMARY | ~2020-05-13 | XMS | Encounter Summary ---
Demographics + + + | Address | [address] | | | [place] [address] | + + + | Home Phone | | + + + | Preferred Language | Unknown | + + + | Marital Status | Single | + + + | Spiritism Affiliation | Unknown | + + + | Race | or | + + + | Ethnic Group | Not or | + + + Author + + + | Author | [facility] | | | and [place] | + + + | Organization | [facility] | | | [...] Team Providers + +------+ + | Care Plow Holder Name | Role | Phone | + +------+ + | Orly Villavicencio MD | PCP | | + +------+ + Encounter Details +--------+ + + + + | Date | Type | Department | Care Team | Description | +--------+ + + + + | 03/22/ | Hospital | [facility] | Orly Villavicencio | Chronic hepatitis C | | 2016 | Encounter | [facility] | MD [address] | without hepatic coma | | | | [address] [place] | [address] [place] | (HCC) (Primary Dx); | | | | [place], [place] | [place] [address] | Elevated LFTs; | | | | [address] | [phone] | Alcoholism (HCC); | | | | [phone] | | Bilateral leg pain; | | [...] [address] | [place] | [phone] | | [facility] | | [address] | | | - LABORATORY | | [...] | | | | | 2015, the 12TXVR test | | | | | | code for 3rdGeneration | | | | | | HIV testing will no | | | | | | longer be orderable.[facility] | | | | | | will [...] order | | | | | | [id number] to order | | | | | [...] | | | | | may go [employer] to | | | | | | access literature | | | | | | regarding the change in | | | | | | HIVmethodologies. You | | | | | | may also contact [facility] | | | | | | Client Services | | | | | | foradditional | | | | | | information.Testing | | | | | | Performed: [facility], [address] | | | | | [address], [place] | | | | | | [address] | | | | + + + [...] [address] | [place] [address] | [phone] | + + + + + CK [...] + + | Performing | Address | City/State[facility] | Phone Number | | Organization | | | | + + + + + | [facility] | [address] | [place] | [phone] | | [facility] | | [address] | | | - LABORATORY | | [...] + | [facility] | [address] | [place] | [phone] | | [facility] | | [address] | | | - LABORATORY | | [...] + | [facility] | [address] | [place] | [phone] | | [facility] | | [address] | | | - LABORATORY | | [...] [address] | [place] | [phone] | | [facility] | | [address] | | | - LABORATORY | | [...] [address] | [place] | [phone] | | [facility] | | [address] | | | - LABORATORY | | [...] ST. | [address] | [place], [place] | [phone] | | [facility] | | [address] | | | - LABORATORY | | [...] + | [facility] | [address] | [place] | [phone] | | [facility] | | [address] | | | - LABORATORY | | [...] | mL/min/1.73m2 | [facility] | | | [place] | RATE,ESTIMATED | | MEDICAL | | | | mL/min/1.79s2Syfv than | | CENTER - | | [...] | 8.9 | 8.3 - 10.5 | [facility] | | | | | mg/dL | [...] [address] | [place] | [phone] | | [facility] | | [address] | | | - LABORATORY | | [...] [address] | [place] | [phone] | | [facility] | | [address] | | | - LABORATORY | | [...]
--- OUTSIDE RECORDS SUMMARY | ~2020-05-13 | XMS | Encounter Summary ---
Demographics + + + | Address | [address] | | | [place] [address] | + + + | Home Phone | | + + + | Preferred Language | Unknown | + + + | Marital Status | Single | + + + | Islam Affiliation | Unknown | + + + | Race | or | + + + | Ethnic Group | Not or | + + + Author + + + | Author | [facility] | | | and [place] | + + + | Organization | [facility] | | | [...] Team Providers + +------+ + | Care Dental Financial Coordinator Name | Role | Phone | + +------+ + | Orly Villavicencio MD | PCP | | + +------+ + Reason for Visit +---------+--------+ + | Reason | Onset | Comments | | | Date | | +---------+--------+ + | Results | 11/27/ | | | | 2020 | | +---------+--------+ + Encounter Details +--------+ + + + + | Date | Type | Department | Care Team | Description | +--------+ + + + + | 11/27/ | Telephone | [facility] | Orly Villavicencio | Results | | 2019 | | MEDICINE [address] | [address] | | | | | [place], | [place] | | | | | [place] [address] | [place] [address] | | | | | [phone] | [phone] | | | | | | | [...] Telephone Encounter - Natalia Hastings RN - 11/28/2019 10:13 AM PDTPatient notified and melissa balized understanding. He will restart the lactulose as he has not been taking this. He says he has some on hand. Spironolactone sent to [facility] in [place]. He is taking the escitalopram as advised. F/u scheduled as advised. Patient agrees to date and time. He confirms best number to chino ch him is . elephone Encounter - Orly Villavicencio MD - 11/28/2019 6:47 AM PDTNew phone num erick: (if this does not work, try [phone]). Please let patient know labs showed: His blood ammonia levels are high -- please confirm if he is taking Lactulose - if not, adv ise to take at least 2x a day in order to produce 2-3 soft stools per day. This will help get the ammonia level down. Please also restart spironolactone 50 mg once a day --this is to help fluid in his legs. #9 0 + 1 His CXR is still showing the pneumonia. It may take 1 more month for this to clear completely. Please confirm if he started taking escitalopram. Please set up phone visit in 1 month. Please correct phone number on file, if needed. Thanks. documented i n this encounter Plan of Treatment Not on filedocumented as of this encounter Visit Diagnoses Not on filedocumented in this encounter
--- OUTSIDE RECORDS SUMMARY | ~2020-05-13 | XMS | Encounter Summary ---
Demographics + + + | Address | [address] | | | [place] [address] | + + + | Home Phone [...] Author + + + | Author | [facility] | | | and [place] | + + + | Organization | [facility] | | | [...] Team Providers + +------+ + | Care Public Relations Name | Role | Phone | + [...] + + | 04/07/ | Telephone | [facility] | Orly Villavicencio | Appointment | | 2014 | | MEDICINE [address] | [address] | | | | | [place], | [place] | | | | | [place] [address] | [place] [address] | | | | | [phone] | [phone] | | | | | | | [...] number for Linh smith girlfriend Lesia at [phone] to contact. elephone Encounter - Toya York [...]
--- OUTSIDE RECORDS SUMMARY | ~2020-05-13 | XMS | Encounter Summary ---
Demographics + + + | Address | [address] | | | [place] [address] | + + + | Home Phone [...] + + + | Author | [facility] | | | and [place] | + + + | Organization | [facility] | | | [...] Team Providers + +------+ + | Care Art Specialist Name | Role | Phone | + +------+ + | No, Physician | PCP | Unavailable | + +------+ + Reason for Visit + + + | Reason | Comments | + + + | Abdominal Pain | | + + + Encounter Details +--------+ + + + + | Date | Type | Department | Care Team | Description | +--------+ + + + + | 04/06/ | Emergency | [facility] | Abhijit Cuevas, | Right upper quadrant | | 2015 - | | [facility] | MD [address] | abdominal pain | | | | CENTER [address] | [facility] [place] | (Primary Dx); | | 04/07/ | | [place] | [place] [address] | Alcoholic hepatitis | | 2014 | | [address] | [phone] | without ascites; | | | | [phone] | | Alcoholic cirrhosis | | | | | | of liver without | | | | | | ascites (HCC) | +--------+ + + + + Social [...] + + + | Blood Pressure | 128/67 | 04/07/2015 1:35 AM | | | | | PDT | | + + + + + | Pulse | 75 | 04/07/2015 1:35 AM | | | | | PDT | | + + + + + | Temperature | 37.2 C (99 F) | 04/06/2015 11:08 PM | | | | | PDT | | + + + + + | Respiratory Rate | 16 | 04/07/2015 1:35 AM | | | | | PDT | | + + + + + | Oxygen Saturation | 92% | 04/07/2015 1:35 AM | | | | | PDT | | + + + + + | Inhaled Oxygen | - | - | | | Concentration | | | | + + + + + | Weight | 109.5 kg (241 lb 4.8 | 04/06/2015 11:08 PM | | | | oz) | PDT | | + + + + + | Height | 180.3 cm (5' 10.98") | 04/06/2015 11:08 PM | | | | | PDT | | + + + + + | Body Mass Index | 33.67 | 04/06/2015 11:08 PM | | | | | PDT | | + + + + + documented in this encounter Discharge Instructions Instructions Abhijit Cuevas MD - 04/07/2015Stop drinking alcohol or you will Take the medications as prescribed Establish a primary care doctor and follow up with them Follow-up with GI Return immediately for symptoms worsen or other concerns develop AttachmentsThe following attachments cannot be sent through Care Everywhere.ALCOHOL WITHDRA HURT (LATVIAN)ALCOHOLISM: GETTING HELPCIRRHOSIS (LATVIAN)documented in this encounter Medications at Time of Discharge + + + +---------+ + + | Medication | Sig | Dispensed | Refills | Start | End Date | | | | | | Date | | + + + +---------+ + + | lactulose 10 g/15 | Take 15 mLs by mouth | 1350 mL | 0 | 04/07/20 | | | mL solution | 3 times daily for | | | 15 | 5 | | | 30 days. | | | | | + + + +---------+ + + | LORazepam (ATIVAN) | Take 1 tablet by | 20 | 0 | 04/07/20 | | | 1 mg tablet | mouth every 6 hours | tablet | | 15 | 5 | | | as needed for | | | | | | | Anxiety (alcohol | | | | | | | withdrawal). | | | | | + + + +---------+ + + | omeprazole | Take 1 capsule by | 30 | 0 | 04/07/20 | | | (PRILOSEC) 20 mg | mouth Daily. | capsule | | 15 | 5 | | capsule | | | | | | + + + +---------+ + + documented as of this encounter ED Notes Jordyn Solano RN - 04/07/2015 1:36 AM PDTPatient departed. Discharge instructions given, all questions answered. Patient verbalize understanding of discharge instructions and medic ation use. Pre-pack and prescription for Ativan given. Prescription for lactulose and omepra zole given. Patient alert and oriented, showing no signs of distress. Patient ambulated out of ED independently w/ steady gait. Abhijit Lezama MD - 04/06/2015 11:08 PM PDT [facility] Hossein Holcomb Emergency Department Encounter Note [address] [place] [address] PCP:No Physician on file [phone] CHIEF COMPLAINT Chief Complaint Patient presents with Abdominal Pain HPI Hossein Holcomb is a 59 y.o. male who presents to the emergency department with abdom inal pain. This patient's having right upper quadrant abdominal pain for 3 hours now. The pain is constant. He feels like it's coming from his liver. He drinks alcohol daily. No f ood today. He took ouin-fda-qzqbzho water pill and khsw-rbn-nfwcrvg stomach pill from [employer] today without improvement. He is accompanied by his girlfriend. Both of them are provid ing the history. No fevers. No injuries. PAST MEDICAL HISTORY History reviewed. No pertinent past medical history. SURGICAL HISTORY Past Surgical History Procedure Laterality Date Chest tube insertion CURRENT MEDICATIONS Discharge Medication List as of 04/07/2015 1:15 ALLERGIES No Known Allergies FAMILY HISTORY No family history on file. SOCIAL HISTORY History Social History Marital Status: Single Spouse Name: N/A Number of Children: N/A Years of Education: N/A Social History Main Topics Smoking status: Current Every Day Smoker -- 0.50 packs/day for 45 years Types: Cigarettes Smokeless tobacco: Never Used Alcohol Use: 75.6 oz/week 126 Cans of beer per week Drug Use: Yes Special: Marijuana Comment: Occasional. Sexual Activity: Partners: Female Other Topics Concern None Social History Narrative None REVIEW OF SYSTEMS All systems reviewed and found negative except what is in the HPI PHYSICAL EXAM VITAL SIGNS: There were no vitals taken for this visit. Constitutional: Well developed, Well nourished, mild to moderate acute distress, Non-toxic appearance. HENT: Normocephalic, Atraumatic, Bilateral external ears normal, Mucous membranes are robb st, Nasal mucosa is normal. Oropharynx is clear. Eyes: PERRL, EOMI, Conjunctiva normal, No discharge. Palpebral conjunctiva are pink. No s cleral icterus. Neck: Normal range of motion, No tenderness, Supple, No stridor. Respiratory: Clear to auscultation bilaterally, No respiratory distress, No wheezing Chest: Non tender, no signs of trauma Cardiovascular: Normal heart rate, Normal rhythm, No murmurs appreciated. GI: Soft, tender in the right upper quadrant with guarding, No masses Extremities: Warm and well perfused, no edema, no joint swelling or deformity. Good ROM. Back: No CVAT, No tenderness of the thoracic or lumbar spine. Skin: Warm, Dry, No erythema, No induration, No rash. No jaundice. Neurologic: Alert & oriented x 3, No focal motor or sensory deficits. Speech is clear. G ait is normal. RADIOLOGY Quick look bedside ultrasound shows an enlarged gallbladder without an ultrasound Sifuentes's. I do not see any shadowing stones at this time. ED COURSE & MEDICAL DECISION MAKING Pertinent Labs & Imaging studies reviewed. (See chart for details) The patient was seen and examined shortly after arriving in the emergency department. Hist ory and physical were obtained, vital signs were noted. This patient is an alcoholic. He h as acute alcohol related hepatitis. He has liver dysfunction with elevated ammonia. He was treated with a dose of lactulose here in the ER. I gave him a dose of pain medicine due to the right upper quadrant pain. I emphasized the need to stop drink alcohol. I'll prescrib e lactulose as an outpatient. He needs to establish a primary care doctor and follow up wit h them. He should return immediately if his symptoms worsen or other concerns develop. I w ill also prescribe a proton pump inhibitor. FINAL IMPRESSION 1. Right upper quadrant abdominal pain 2. Alcoholic hepatitis without ascites 3. Alcoholic cirrhosis of liver without ascites (HCC) PLAN Follow-up Information Follow up with Orly Villavicencio MD. Schedule an appointment as soon as possible fo r a visit in 1 day. Specialty: Internal Medicine Contact information: [address] [facility] [address] Follow up with Alex Gama MD. Specialty: Gastroenterology Contact information: [address] [facility] [address] [phone] Discharge Medication List as of 04/07/2015 1:15 START taking these medications Details lactulose 10 g/15 mL solution Take 15 mLs by mouth 3 times daily for 30 days.Disp-1350 mL, R-0, Print LORazepam (ATIVAN) 1 mg tablet Take 1 tablet by mouth every 6 hours as needed for Anxiety ( alcohol withdrawal).Disp-20 tablet, R-0, Print Abhijit Cuevas MD 04/07/15 0633 docume nted in this encounter Miscellaneous Notes ED Triage Notes - Jordyn Solano RN - 04/06/2015 11:07 PM PDTPatient chief complaint right , upper quadrant abdominal pain. Patient reports pain started 3 hours ago. Patient verbalize s concern of liver problems, reports a history of alcoholism and states he was told many yea rs ago that he should stop drinking. documented in this encounter Plan of Treatment Not on filedocumented as of this encounter Procedures + +--------+ + + + | Procedure Name | Priori | Date/Time | Associated Diagnosis | Comments | | | ty | | | | + +--------+ + + + | EXTRA GOLD TOP TUBE | Routin | 04/07/2015 | | Results for this | | | e | 12:18 AM | | procedure are in the | | | | PDT | | results section. | + +--------+ + + + | PROTIME INR | STAT | 04/06/2015 | | Results for this | | | | 11:28 PM | | procedure are in the | | | | PDT | | results section. | + +--------+ + + + | CBC WITH | STAT | 04/06/2015 | | Results for this | | DIFFERENTIAL | | 11:28 PM | | procedure are in the | | | | PDT | | results section. | + +--------+ + + + | LIPASE | STAT | 04/06/2015 | | Results for this | | | | 11:28 PM | | procedure are in the | | | | PDT | | results section. | + +--------+ + + + | AMMONIA | STAT | 04/06/2015 | | Results for this | | | | 11:28 PM | | procedure are in the | | | | PDT | | results section. | + +--------+ + + + | ALCOHOL | STAT | 04/06/2015 | | Results for this | | | | 11:28 PM | | procedure are in the | | | | PDT | | results section. | + +--------+ + + + | COMPREHENSIVE | STAT | 04/06/2015 | | Results for this | | METABOLIC PANEL | | 11:28 PM | | procedure are in the | | | | PDT | | results section. | + +--------+ + + + documented in this encounter Results EXTRA GOLD TOP TUBE (04/07/2015 12:18 AM PDT) + +-------+ + + + | Component | Value | Ref Range | Performed | Pathologist | | | | | At | Signature | + +-------+ + + + | Extra Gold | Done | | [facility] | | | Top Tube | | | [facility] | | [...] + + | [facility] | [address] | [place] | [phone] | | [facility] | | [address] | | | - LABORATORY | | | | + + + + + Ammonia (04/06/2015 11:28 PM PDT) + +--------+ + + + | Component | Value | Ref Range | Performed | Pathologist | | | | | At | Signature | + +--------+ + + + | Ammonia | 60 (H) | 11 - 35 umol/L | [...] + | [facility] | [address] | [place], [place] | [phone] | | [facility] | | [address] | | | - LABORATORY | | | | + + + + + Protime INR (04/06/2015 11:28 PM PDT) + + + + + + | Component | Value | Ref Range | Performed | Pathologist | | | | | At | Signature | + + + + + + | Prothrombin | 14.8 (H) | 11.3 - 13.9 | [facility] | | | Time | | seconds | [facility] | | | | | | MEDICAL | | | | | | CENTER - | | | | | | LABORATORY | | + + + + + + | INR | 1.16 (H)Comment: Usual | 0.90 - 1.10 | [facility] | | | | Oral Anticoagulation | | [facility] | | | | Range: 2.0 [address] | [place] | [phone] | | [facility] | | [address] | | | - LABORATORY | | | | + + + + + Ethanol (04/06/2015 11:28 PM PDT) + +-------+ + + + | Component | Value | Ref Range | Performed | Pathologist | | | | | At | Signature | + +-------+ + + + | ALCOHOL, | 268 | <400 mg/dL | [facility] | | | SERUM/PLASM | | | [facility] | | | A | | | MEDICAL | | | [...] + | [facility] | [address] | [place] | [phone] | | [facility] | | [address] | | | - LABORATORY | | | | + + + + + Lipase (04/06/2015 11:28 PM PDT) + +-------+ + + + | Component | Value | Ref Range | Performed | Pathologist | | | | | At | Signature | + +-------+ + + + | Lipase | 45 | 0 - 60 U/L | [facility] | | | | | | [facility] [...] + | [facility] | [address] | [place] | [phone] | | [facility] | | [address] | | | - LABORATORY | | | | + + + + + Comprehensive Metabolic Panel (04/06/2015 11:28 PM PDT) + + + + + + | Component | Value | Ref Range | Performed | Pathologist | | | | | At | Signature | + + + + + + | Na | 139 | 136 - 149 | [facility] | | | | | mmol/L | . [facility] | | | | | | MEDICAL | | | | | | CENTER - | | | | | | LABORATORY | | + + + + + + | K | 3.7 | 3.5 - 5.1 | [facility] | | | | | mmol/L | [facility] | | | | | | MEDICAL | | | | | | CENTER - | | | | | | LABORATORY | | + + + + + + | Cl | 107 | 98 - 109 mmol/L | [facility] [...] + + | Glucose | 98 | 70 - 109 mg/dL | [facility] | | | | | | [facility] | | | | | | MEDICAL | | | | | | CENTER - | | | | | | LABORATORY | | + + + + + + | BUN | 2 (L) | 7 - 18 mg/dL | [facility] | | | | | | [facility] | | | | | | MEDICAL | | | | | | CENTER - | | | | | | LABORATORY | | + + + + + + | Creatinine | 0.67 | 0.60 - 1.30 | [facility] | [...] mL/min/1.73m2 | [facility] | | | [place] | RATE,ESTIMATED | | MEDICAL | | | | mL/min/1.07y2Vela than | | CENTER - | | [...] + + + + | Calcium | 8.0 (L) | 8.3 - 10.5 | [facility] | | | | | mg/dL | [facility] | | | | | | MEDICAL | | | | | | CENTER - | | | | | | LABORATORY | | + + + + + + | Albumin | 3.1 (L) | 3.2 - 5.0 g/dL | [facility] | | | | | | [facility] | | | | | | MEDICAL | | | | | | CENTER - | | | | | | LABORATORY | | + + + + + + | Bilirubin | 1.7 (H) | 0.1 - 1.5 mg/dL | [facility] | | | Total | | | [facility] | | | | | | MEDICAL | | | | | | CENTER - | | | | | | LABORATORY | | + + + + + + | Total | 8.1 (H) | 6.0 - 7.8 g/dL | [facility] | | | Protein | | | [facility] | | | | | | MEDICAL | | | | | | CENTER - | | | | | | LABORATORY | | + + + + + + | AST | 175 (H) | 10 - 42 U/L | [facility] | | | | | | [facility] | | | | | | MEDICAL | | | | | | CENTER - | | | | | | LABORATORY | | + + + + + + | ALT | 76 (H) | 6 - 45 U/L | [...] + + + + | Globulin | 5.0 | g/dL | [facility] | | | | | | [facility] | | | | | | MEDICAL | | | | | | CENTER - | | | | | | LABORATORY | | + + + + + + | Albumin/Masha | 0.6 | | [facility] | | | bulin Ratio | | | [facility] | | | | | | MEDICAL | | | | | | CENTER - | | | | | | LABORATORY | | + + + + + + | BUN/Creatin | 3.0 | | [facility] | | | ine [...] + + | [facility] | [address] | [place] | [phone] | | [facility] | | [address] | | | - LABORATORY | | | | + + + + + CBC with Differential (04/06/2015 11:28 PM PDT) + + + + + + | Component | Value | Ref Range | Performed | Pathologist | | | | | At | Signature | + + + + + + | White Blood | 9.0 | 4.0 - 11.0 K/uL | [facility] | | | Cells | | | [facility] | | | | | | MEDICAL | | | | | | CENTER - | | | | | | LABORATORY | | + + + + + + | Red Blood | 4.79 | 4.30 - 5.70 | [facility] | | | Cells | | M/uL | [facility] | | | | | | MEDICAL | | | | | | CENTER - | | | | | | LABORATORY | | + + + + + + | Hemoglobin | 15.8 | 13.5 - 18.0 | [facility] | | | | | g/dL | [facility] | | | | | | MEDICAL | | | | | | CENTER - | | | | | | LABORATORY | | + + + + + + | Hematocrit | 45.5 | 40.0 - 51.0 % | [facility] | | | | | | [facility] | | | | | | MEDICAL | | | | | | CENTER - | | | | | | LABORATORY | | + + + + + + | MCV | 95.1 | 83.0 - 101.0 fL | [facility] | | | | | | [facility] | | | | | | MEDICAL | | | | | | CENTER - | | | | | | LABORATORY | | + + + + + + | MCH | 33.1 | 28.0 - 35.0 pg | [facility] | | | | | | [facility] | | | | | | MEDICAL | | | | | | CENTER - | | | | | | LABORATORY | | + + + + + + | MCHC | 34.8 | 32.0 - 36.0 | [facility] | | | | | g/dL | [facility] | | | | | | MEDICAL | | | | | | CENTER - | | | | | | LABORATORY | | + + + + + + | RDW-CV | 14.4 | <15.0 % | [facility] | | | | | | [facility] | | | | | | MEDICAL | | | | | | CENTER - | | | | | | LABORATORY | | + + + + + + | Platelet | 124 (L) | 140 - 440 K/uL | [facility] | | | Count | | | [facility] | | | | | | MEDICAL | | | | | | CENTER - | | | | | | LABORATORY | | + + + + + + | MPV | 8.0 | fL | [facility] | | | | | | [facility] | | | | | | MEDICAL | | | | | | CENTER - | | | | | | LABORATORY | | + + + + + + | % | 45.9 | 45.0 - 82.0 % | [facility] | | | Neutrophils | | | [facility] | | | | | | MEDICAL | | | | | | CENTER - | | | | | | LABORATORY | | + + + + + + | % | 38.1 | 20.0 - 45.0 % | [facility] | | | Lymphocytes | | | [facility] | | | | | | MEDICAL | | | | | | CENTER - | | | | | | LABORATORY | | + + + + + + | % Monocytes | 11.6 | 4.0 - 12.0 % | [facility] | | | | | | [facility] | | | | | | MEDICAL | | | | | | CENTER - | | | | | | LABORATORY | | + + + + + + | % | 3.6 | 0.0 - 5.0 % | [facility] | | | Eosinophils | | | [facility] | | | | | | MEDICAL | | | | | | CENTER - | | | | | | LABORATORY | | + + + + + + | % Basophils | 0.8 | 0.0 - 1.0 % | [facility] | | | | | | [facility] | | | | | | MEDICAL | | | | | | CENTER - | | | | | | LABORATORY | | + + + + + + | Absolute | 4.10 | 1.80 - 8.50 | [facility] | | | Neutrophils | | K/uL | [facility] | | | | | | MEDICAL | | | | | | CENTER - | | | | | | LABORATORY | | + + + + + + | Absolute | 3.40 (H) | 0.60 - 3.20 | [facility] | [...] [address] | [place] | [phone] | | [facility] | | [address] | | | - LABORATORY | | | | + + + + + documented in this encounter Visit Diagnoses + + | Diagnosis | + + | Right upper quadrant abdominal pain - Primary Abdominal pain, right upper quadrant | + + | Alcoholic hepatitis without ascites Acute alcoholic hepatitis | + + | Alcoholic cirrhosis of liver without ascites (HCC) Alcoholic cirrhosis of liver | + + documented in this encounter Administered Medications + +--------+ +------+------+------+ | Medication Order | MAR | Action | Dose | Rate | Site | | | Action | Date | | | | + +--------+ +------+------+------+ | HYDROmorphone (PF) (DILAUDID) 1 | Given | 04/07/20 | 1 mg | | | | mg/mL injection 1 mg 1 mg, | | 15 12:47 | | | | | Intravenous, ONCE, 04/07/15 at | | AM PDT | | | | | 0045, For 1 dose | | | | | | + +--------+ +------+------+------+ +---+---+ | | | +---+---+ + +-------+ +--------+---+---+ | lactulose liquid 45 mL 45 mL, | Given | 04/07/20 | 45 mLs | | | | Oral, ONCE, 04/07/15 at 0045, | | 15 12:37 | | | | | For 1 dose | | AM PDT | | | | + +-------+ +--------+---+---+ +---+---+ | | | +---+---+ + + + +------+---+---+ | LORazepam (ATIVAN) 1 mg tablet | Dispense | 04/07/20 | 1 mg | | | | (ER Prepack) 1 mg 1 mg, Oral, | to Home | 15 1:27 | | | | | ONCE, 04/07/15 at 0115, For 1 | | AM PDT | | | | | dose, 1 tablet(s) every 6 hours | | | | | | | prn anxiety Dispense for home | | | | | | | use., | | | | | | + + + +------+---+---+ +---+---+ | | | +---+---+ + +-------+ +------+---+---+ | ondansetron (ZOFRAN) injection | Given | 04/07/20 | 4 mg | | | | 4 mg 4 mg, Intravenous, ONCE, | | 15 12:45 | | | | | Tue04/07/15 at 0045, For 1 dose | | AM PDT | | | | + +-------+ +------+---+---+ + +---+ | | | + +---+ | pantoprazole (PROTONIX) 40 mg | | | DR tablet Starting Tue04/07/15 | | | at 0107, For 1 dose, JONES, | | | MADELINE: clifford sharma, | | + +---+ | | | + +---+ + +-------+ +-------+---+---+ | pantoprazole (PROTONIX) DR | Given | 04/07/20 | 40 mg | | | | tablet 40 mg 40 mg, Oral, ONCE, | | 15 1:26 | | | | | 04/07/15 at 0115, For 1 dose | | AM PDT | | | | + +-------+ +-------+---+---+ +---+---+ | | | +---+---+ documented in this encounter
--- OUTSIDE RECORDS SUMMARY | ~2020-05-13 | XMS | Encounter Summary ---
Demographics + + + | Address | [address] | | | [place] [address] | + + + | Home Phone [...] Author + + + | Author | [facility] | | | and [place] | + + + | Organization | [facility] | | | and [...] Team Providers + +------+ + | Care Swamper Name | Role | Phone | + [...] + + | 04/30/ | Telephone | [facility] | Orly Villavicencio | Results | | 2014 | | MEDICINE [address] | [address] | | | | | [place], | [place] | | | | | [place] [address] | [place] [address] | | | | | [phone] | [phone] | | | | | | | [...] stay with Dr Villavicencio. [facility]. elephone Encounter - Orly Villavicencio MD - 04/30/2015 4:55 PM PDTPlease call patient or his girlfrien blossom Graf and report that his liver US did not show any significant findings which is good n ews. I am aware that they have decided to follow up with [facility]. Please advise to keep appt with GI as I have recommended, and to do follow up bloodwork amina t I also advised him to have. Order in EMR. If he has established with a new PCP at [facility], please change PCP in the EMR. Thanks. documented i n this encounter Plan of Treatment Not on filedocumented as of this encounter Visit Diagnoses Not on filedocumented in this encounter"
--- OUTSIDE RECORDS SUMMARY | ~2020-05-13 | XMS | Encounter Summary ---
Demographics + + + | Address | [address] | | | [place] [address] | + + + | Home Phone | | + + + | Preferred Language | Unknown | + + + | Marital Status | Single | + + + | Orthodoxy Affiliation | Unknown | + + + | Race | or | + + + | Ethnic Group | Not or | + + + Author + + + | Author | [facility] | | | and [place] | + + + | Organization | [facility] | | [...] Team Providers + +------+ + | Care Technical Specialist Cytology Name | Role | Phone | + [...] + + | 09/27/ | Telephone | [facility] | Brittaney Villavicencio | ER Follow-up | | 2018 | | [facility] | MD [address] | | | | | [address] | Arnaud [place]IYAH | | | | | Lorena Carrillo [place] | [place] [address] | | | | | [address] | [phone] | | | | | [phone] | | | +--------+ + + + [...] a nd RX hydrocodone sent to the senior front end engineer for Elmer to lemon picker. Again, Elmer notified IF THIS DOES [...] appointment on 09/30. Please call Elmer at [phone]. 1 1:34 AM PSTTelephone Encounter - Natalia [...] appt scheduled. Furosemide and KCL sent to [facility]. elephone Encounter - Brittaney Villavicencio MD - 09/27/2017 5:06 PM PSTNeeds appt here this Tuesday. Ok to send furosemide and KCl to pharmacy of choice. He has not been seen here for almost 2 years. Thanks. elephone En elissa - Melissa Blue RN - 09/27/2017 1:31 PM [facility] [...] reports he is able to come to [place] for blood draw. Future Appts: No future appointments. docuemmanuel in this en counter Plan of Treatment Not on filedocumented as of this encounter Visit Diagnoses Not on filedocumented in this encounter"
--- OUTSIDE RECORDS SUMMARY | ~2020-05-13 | XMS | Encounter Summary ---
Demographics + + + | Address | [address] | | | [place] [address] | + + + | Home Phone [...] + + | Author | [facility] | | | and [place] | + + + | Organization | [facility] | | | and [...] Team Providers + +------+ + | Care Insurance Account Manager Name | Role | Phone | [...] + | 12/01/ | Refill | [facility] | Christian Ham MD | Medication Refill | | 2017 | | MEDICINE [address] | [address] [facility] [address] | | | | | [address] [place], | [place] | | | | | [place] [address] | [id number] | | | | | [phone] | | | +--------+--------+ + + + [...] this encounter Miscellaneous Notes Telephone Encounter - Shila Morrell RN - 12/01/2017 2:18 PM PDTReceived a refill requ est for lorazepam. Last refill #20 02/24/17 Last appointment 09/30/17 Next appointment 02/16/18 Script pended. docum ented in this encounter Plan of Treatment Not on filedocumented as of this encounter Visit Diagnoses Not on filedocumented in this encounter"
--- OUTSIDE RECORDS SUMMARY | ~2020-05-13 | XMS | Encounter Summary ---
Demographics + + + | Address | [address] | | | [place] [address] | + + + | Home Phone [...] Author + + + | Author | [facility] | | | and [place] | + + + | Organization | [facility] | | | [...] Team Providers + +------+ + | Care Light Equipment Operator Name | Role | Phone | + +------+ + | Orly Villavicencio MD | PCP | | + +------+ + Encounter Details +--------+ + + + + | Date | Type | Department | Care Team | Description | +--------+ + + + + | 04/17/ | Hospital | [facility] | Orly Villavicencio | Alcoholic hepatitis | | 2015 | Encounter | [facility] | MD [address] | without ascites | | | | [address] [place] | [place] | | | | | [place], [place] | [place] [address] | | | | | [address] | [phone] | | | | | [phone] | | | +--------+ + + + [...] | + +--------+ + + + | HEPATITIS PANEL, | Routin | 04/17/2015 | Alcoholic | Results for this | | CHRONIC | e | 5:21 PM | hepatitis without | procedure are in the | | | | PDT | ascites | results section. | + +--------+ + + + | PROTIME INR | Routin | 04/17/2015 | Alcoholic | Results for this | | | e | 5:21 PM | hepatitis without | procedure are in the | | | | PDT | ascites | results section. | + +--------+ + + + | CBC WITH | Routin | 04/17/2015 | Alcoholic | Results for this | | DIFFERENTIAL | e | 5:21 PM | hepatitis without | procedure are in the | | | | PDT | ascites | results section. | + +--------+ + + + | AMMONIA | Routin | 04/17/2015 | Alcoholic | Results for this | | | e | 5:21 PM | hepatitis without | procedure are in the | | | | PDT | ascites | results section. | + +--------+ + + + | COMPREHENSIVE | Routin | 04/17/2015 | Alcoholic | Results for this | | METABOLIC PANEL | e | 5:21 PM | hepatitis without | procedure are in the | | | | PDT | ascites | results section. | + +--------+ + + + documented in this encounter Results Hepatitis Panel, Chronic (04/17/2015 5:21 PM PDT) [...] | LAB [facility] | | | | Oudril51.0 or greater | | | | | [...] | | | | | | Performed: [facility], [address] | | | | | | [address], [place] | | | | | | [address] | | | | + + + + + + + + | Specimen | + + | Blood specimen | | (specimen) | + + + + + + + | Performing | Address | City/State/Zipcode | Phone Number | | Organization | | | | + + + + + | REFERENCE [facility] | [address] | [place] [address] | [phone] | + + + + + Ammonia (04/17/2015 5:21 PM PDT) + +--------+ + + + | Component | Value | Ref Range | Performed | Pathologist | | | | | At | Signature | + +--------+ + + + | Ammonia | 44 (H) | 11 - 35 umol/L | [facility] | | | | | [...] [address] | [place] | [phone] | | [facility] | | [address] | | | - LABORATORY | | [...] [address] | [place] | [phone] | | [facility] | | [address] | | | - LABORATORY | | [...] | mL/min/1.73m2 | MARYBETH | | | [place] | RATE,ESTIMATED | | MEDICAL | | | | mL/min/1.47z3Zywv than | | CENTER - | | [...] + | [facility] | [address] | [place] | [phone] | | [facility] | | [address] | | | - LABORATORY | | [...] | | | | | g/dL | [facility] | | | | [...] [address] | [place] | [phone] | | [facility] | | [address] | | | - LABORATORY | | | | + + + + + documented in this encounter Visit Diagnoses + + | Diagnosis | + + | Alcoholic hepatitis without ascites Acute alcoholic hepatitis | + + documented in this encounter
--- OUTSIDE RECORDS SUMMARY | ~2020-05-13 | XMS | Encounter Summary ---
Demographics + + + | Address | [address] | | | [place] [address] | + + + | Home Phone [...] | + + +---------+ + | Patricia Dagneloson | ECON | Unknown | | + + +---------+ + Care Team Providers + +------+ + | Care Oil Field Caser Name | Role | Phone | + +------+ + | Orly Villavicencio MD | PCP | | + +------+ + Encounter Details +--------+ + + + + | Date | Type | Department | Care Team | Description | +--------+ + + + + | 11/25/ | Hospital | [facility] | Orly Villavicencio | Community acquired | | 2020 | Encounter | [facility] | [address] | pneumonia of left | | | | [address] [place] | [address] [place] | lung, unspecified | | | | [place], [place] | [place] [address] | part of lung | | | | [address] | [phone] | | | | | [phone] | | | +--------+ + + + [...] + + + +---------+ + + | acetaminophen | Take 650 mg by mouth | | 0 | | | | (TYLENOL) 325 mg | every 4 hours as | | | | | | tablet | needed for Pain. | | | | | + + + +---------+ + + | benzonatate | Take 1 capsule by | 30 | 0 | 11/16/19 | | | (TESSALON) 200 MG | mouth 3 times daily | capsule | | 20 | | | capsule | as needed for Cough. | | | | | + + + +---------+ + + | cetirizine | Take 10 mg by mouth | | 0 | | | | (ZYRTEC) 10 mg | Daily. | | | | | | tablet | | | | | | + + + +---------+ + + | ibuprofen (ADVIL, | Take 400 mg by mouth | | 0 | | | | MOTRIN) 400 mg | every 6 hours as | | | | | | tablet | needed for Pain. | | | | | + + [...] tablet by | 20 | 0 | 11/26/19 | | | 1 mg tablet | mouth every 6 hours | tablet | | 20 | | | | if needed for | | | | | | | anxiety | | | | | + + + +---------+ + + | doxycycline | Take 100 mg by mouth | | 0 | | | | (MONODOX) 100 mg | 2 times daily. | | | | 0 | | capsule | | | | | | + + + +---------+ + + | escitalopram | Take 1/2 tablet by | 30 | 0 | 11/26/19 | | | (LEXAPRO) 20 mg | mouth daily for 1 | tablet | | 20 | 0 | | tablet | week then INCREASE | | | | | | | TO 1 TAB A DAY | | | | | | | THEREAFTER | | | | | + + [...] + +--------+ + + + | XR CHEST PA AND | Routin | 11/26/2019 | Community acquired | Results for this | | LATERAL | e | 2:31 PM | pneumonia of left | procedure are in the | | | | PDT | lung, unspecified | results section. | | | | | part of lung | | + +--------+ + + + documented in this encounter Results IMAGING REPORT - EXTERNAL SCAN (04/17/2020 12:00 AM PDT) + + + | Narrative | Performed At | + + + | Ordered by an | | | unspecified provider. | | + + + LABS - EXTERNAL SCAN (04/16/2020 12:00 AM PDT) + + + | Narrative | Performed At | + + + | Ordered by an | | | unspecified provider. | | + + + LABS - EXTERNAL SCAN (04/16/2020 12:00 AM PDT) + + + | Narrative | Performed At | + + + | Ordered by an | | | unspecified provider. | | + + + XR Chest PA and Lateral (11/26/2019 2:31 PM PDT) + + | Specimen | + + | | + + + + + | Impressions | Performed At | + + + | Bibasilar mid and lower lung zone interstitial thickening which is | [facility] | | worsened since prior examination, suspicious for pneumonia. | | | Dictated and Signed by: Ezio Gomez MD Electronically signed: | | | 11/26/2019 2:40 PM | | + + + + + + | Narrative | Performed At | + + + | XR CHEST PA AND LATERAL 11/26/2019 2:31 PM HISTORY: pneumonia | [facility] | | follow up LLL. COMPARISON: 06/01/2018 Findings: Bibasilar mid | | | and lower lung zone interstitial thickening which is worsened since | | | prior examination. Minimal blunting of the right costophrenic sulcus. | | | Heart size is within normal limits. Pulmonary vasculature is within | | | normal limits. Aorta is normal. Mediastinum is unremarkable. | | | Right-sided remote rib fracture deformities. Multilevel thoracic | | | spondylosis. | | + + + + + | Procedure Note | + + | Keegan, Rad Results In - 11/26/2019 2:43 PM PDT XR CHEST PA AND LATERAL 11/26/2019 2:31 | | PMHISTORY: pneumonia follow up LLL.COMPARISON: 06/01/2018Findings:Bibasilar mid and | | lower lung zone interstitial thickening which is worsenedsince prior examination. | | Minimal blunting of the right costophrenic sulcus.Heart size is within normal limits. | | Pulmonary vasculature is within normallimits. Aorta is normal. Mediastinum is | | unremarkable. Right-sided remote ribfracture deformities. Multilevel thoracic | | spondylosis. IMPRESSION: Bibasilar mid and lower lung zone interstitial thickening which | | is worsenedsince prior examination, suspicious for pneumonia. Dictated and Signed by: | | Ezio Gomez MD Electronically signed: 11/26/2019 2:40 PM | |Heart size is within normal limits. Pulmonary vasculature is within normal | |limits. Aorta is normal. Mediastinum is unremarkable. Right-sided remote rib | |fracture deformities. Multilevel thoracic spondylosis. | | | |IMPRESSION: | |Bibasilar mid and lower lung zone interstitial thickening which is worsened | |since prior examination, suspicious for pneumonia. | | | |Dictated and Signed by: Ezio Gomez MD | | Electronically signed: 11/26/2019 2:40 PM | + + + +---------+ + + | Performing | Address | City/State/Zipcode | Phone Number | | Organization | | | | + +---------+ + + | [facility] | | | | + +---------+ + + documented in this encounter Visit Diagnoses + + | Diagnosis | + + | Community acquired pneumonia of left lung, unspecified part of lung | + + documented in this encounter
--- OUTSIDE RECORDS SUMMARY | ~2020-05-13 | XMS | Encounter Summary ---
Demographics + + + | Address | [address] | | | [place] [address] | + + + | Home Phone [...] + + + | Author | [facility] | | | and [place] | + + + | Organization | [facility] | | [...] Team Providers + +------+ + | Care Slab Worker Name | Role | Phone | [...] | Gastroenterol | Diagnoses | [place], | [place], | | | Services | ogy | Nausea and | Orly Huff | Alex Spencer MD | | | Required | | vomiting, | MD Shimon | [address], | | | | | intractabili | [address] | [address] | | | | | ty of | [place], | | | | | vomiting not | [place], [place] | [place] [address] | | | | | specified, | [address] | Phone: | | | | | unspecified | Phone: | [phone] | | | | | vomiting | [phone] | Fax: | | | | | type | Fax: | [phone] | | | | | Hepatic | [phone] | | | | | | cirrhosis, | | | | | | | unspecified | | | | | | | hepatic | | | | | | | cirrhosis | | | | | | | type, | | | | | | | unspecified | | | | | | | whether | | | | | | | ascites | | | | | | | present | | | | | | | (HCC) | | | | | | | Chronic | | | | | | | hepatitis C | | | | | | | without | | | | | | | hepatic coma | | | | | | | (HCC) | | | +--------+ + + + + + Reason for Visit +---------+--------+ + | Reason | Onset | Comments | | | Date | | +---------+--------+ + | Results | 04/25/ | | | | 2019 | | +---------+--------+ + Encounter Details +--------+ + + + + | Date | Type | Department | Care Team | Description | +--------+ + + + + | 04/25/ | Telephone | [facility] | Orly Villavicencio | Results | | 2018 | | [facility] [address] | [address] | | | | | [place], | [address] [place] | | | | | [place] [address] | [place] [address] | | | | | [phone] | [phone] | | | | | | | [...] Telephone Encounter - Natalia Hastings RN - 05/01/2019 10:30 AM PDTLaWanda notified and melissa balized understanding. Telephone Encounter - Natalia Hastings RN - 04/30/2019 1:42 PM PDTMessage left for Melvin to call us back. eleph one Encounter - Nay Sykes RN - 04/26/2019 5:15 PM PDTLeft message for sister Melvin to please call back. el ephone Encounter - Orly Villavicencio MD - 04/26/2019 5:05 PM PDTIt may be helpful f or her to be with Hossein during his next appointment so we can discuss a strategy for alcoh ol counseling. Hep C cannot be transmitted through sweat. Having him take his medications regularly will really help him. One of the meds I have refilled is his antidepressant - I think this will also be helpful. Thanks. elephone En counter - Nay Sykes RN - 04/26/2019 1:52 PM PDTSpoke with sister Melvin and notified her of Dr. Villavicencio's message. She states she "can't tell him what to do, can't make him", states he is "bull-headed". She states he says he is dying from alcoholism, she states he had stopped drinking for 6-8 months and has started again since spring/early summer. States he says "let me ". I asked if he has suicidal tendencies, she says "sometimes", states if he doesn't get his beer she doesn't know what he'll do, "I don't know if he would stab himself or shoot himself, I don't know". She states he sees things when he is not intoxicated. She states he lies to her and to us. She asks about Hep C, asks if her 4 year old could get it living with him? Notified this is spread through sharing bodily fluids, sexual encounters, blood transfusion, IV drug use. S he thought maybe this came through "his pores". Asked if they would like more information on quitting alcohol? Or if she feels mental healt h counseling might be helpful? She agrees to let us know. She states she will warp picker medi cation and help him take this regularly. She states this is hard and his girlfriend kicked him out and his children won't take care of him. Please advise on further recommendations.Electronically signed by Nay Sykes RN at 12/2018 2:04 PM PDTTelephone Encounter - Natalia Hastings RN - 04/25/2019 9:00 AM PDTMesjamie spencer left for Melvin to call us back. elephone Encounter - Orly Villavicencio MD - 04/25/2019 6:37 AM PDTPle ase call sister Melvin and let know his labs showed: Worsening liver damage. This is due to active hepatitis C and continued alcohol use. His Vit D is low - please ask to start 2000 IU a day. This is over the counter. I have refilled spironolactone and nortriptyline for him. Please let her know he has been running out of his medications and not asking for refills w hich can really make him sick. Please make sure he takes his medications regularly and he does not run out. Please make sure he takes only ONE tablet of furosemide a day. Start spironolactone ONE tablet a day. Nortriptyline ONE tablet at HS. Important for him to also see GI. He may need an upper endoscopy due to his nausea and vomiting in the mornings, as well as h is hep C. I have put in a referral. Important to see me in a month. Please make sure he keeps his appt. Thanks. documented i n this encounter Plan of Treatment + + +--------+ + + | Name | Type | Priori | Associated Diagnoses | Order Schedule | | | | ty | | | + + +--------+ + + | * [facility] [place] | Outpatient | Routin | Nausea and | Ordered: 04/25/2019 | | Gastroenterology - | Referral | e | vomiting, | | | AMB Referral | | | intractability of | | | | | | vomiting not | | | | | | specified, | | | | | | unspecified vomiting | | | | | | type Hepatic | | | | | | cirrhosis, | | | | | | unspecified hepatic | | | | | | cirrhosis type, | | | | | | unspecified whether | | | | | | ascites present | | | | | | (HCC) Chronic | | | | | | hepatitis C without | | | | | | hepatic coma (HCC) | | + + +--------+ + + documented as of this encounter Visit Diagnoses + + | Diagnosis | + + | Nausea and vomiting, intractability of vomiting not specified, unspecified vomiting | | type - Primary | + + | Hepatic cirrhosis, unspecified hepatic cirrhosis type, unspecified whether ascites | | present (HCC) | + + | Chronic hepatitis C without hepatic coma (HCC) | + + documented in this encounter
--- OUTSIDE RECORDS SUMMARY | ~2020-05-13 | XMS | Encounter Summary ---
Demographics + + + | Address | [address] | | | [place] [address] | + + + | Home Phone | | + + + | Preferred Language | Unknown | + + + | Marital Status | Single | + + + | Quaker Affiliation | Unknown | + + + | Race | or | + + + | Ethnic Group | Not or | + + + Author + + + | Author | [facility] | | | and [place] | + + + | Organization | [facility] | | | and [...] Team Providers + +------+ + | Care Contact Acid Plant Operator Helper Name | Role | Phone | + +------+ + | Orly Villavicencio MD | PCP | | + +------+ + Reason for Visit +---------+ + | Reason | Comments | +---------+ + | Anxiety | | +---------+ + Encounter Details +--------+---------+ + + + | Date | Type | Department | Care Team | Description | +--------+---------+ + + + | 11/25/ | Office | [facility] | Orly Villavicencio | Community acquired | | 2020 | Visit | [address] | [address] | pneumonia of left | | | | [address] [place], | [address] [place] | lung, unspecified | | | | [place] [address] | [place] [address] | part of lung | | | | [phone] | [phone] | (Primary Dx); | | | | | | Hepatic cirrhosis, | | | | | | unspecified hepatic | | | | | | cirrhosis type, | | | | | | unspecified whether | | | | | | ascites present | | | | | | (HCC); Anxiety; | | | | | | Depression, | | | | | | unspecified | | | | | | depression type; | | | | | | Paroxysmal atrial | | | | | | fibrillation (HCC) | +--------+---------+ + + + Social History [...] Instructions Patient Instructions Orly Villavicencio MD - 11/26/2019 2:00 PM PDTI have called in Lorazepam (anxiety pill) and Escitalopram (another anxiety pill) for you at [facility] in [facility]. Take Escitalopram 1/2 tablet a day for 1 week, then increase to 1 full tablet once a day. Finish your antibiotics. documented in this encounter Progress Notes Orly Villavicencio MD - 11/26/2019 2:00 PM PDTFormatting of this note might be diff erent from the original. Chief Complaint Patient presents with Anxiety HPI: Hossein Holcomb is here by himself. He was discharged from the hospital last 11/08/19 after being admitted for septic shock from LLL/aspiration pneumonia. He was hospitalized for 2 weeks. He was intubated and required pr essor support for a few days. Also developed rapid Afib which required treatment with cardio version and IV amiodarone. On 10/31, his condition improved and he was successfully extubated . He was discharged home on Augmentin PO. For some reason, he brings his medication bottles and he is taking Doxycycline. He has abou t 5 tablets left. He is also taking pseudoephedrine for "congestion". He reports his cough a nd congestion are both much better. He reports these medications were given to him by a doctor from [facility]. He complains of increased irritability, impatience, depression and aggression. He is now li aarong with his son and he is unhappy about lack of independence and his inability to drink al cohol. He reports he has not been drinking since he left the hospital. He has suicidal ideat ions (not new for him), but he has no suicidal planning. He does indicate that he wants to " hurt someone", but then smiles to indicate that he is trying to be humorous. 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 Past Medical History: Diagnosis Date Chest trauma, penetrating bucked off a horse ETOH abuse EtOH dependence (HCC) Pneumonia Current Outpatient Medications on File Prior to Visit Medication Sig Dispense Refill acetaminophen (TYLENOL) 325 mg tablet Take 650 mg by mouth every 4 hours as needed for Pain. benzonatate (TESSALON) 200 MG capsule Take 1 capsule by mouth 3 times daily as needed f or Cough. 30 capsule 0 cetirizine (ZYRTEC) 10 mg tablet Take 10 mg by mouth Daily. doxycycline (MONODOX) 100 mg capsule Take 100 mg by mouth 2 times daily. furosemide (LASIX) 40 mg tablet 1 tablet a day. (Patient taking differently: 40 mg Gosia y.) 90 tablet 1 ibuprofen (ADVIL, MOTRIN) 400 mg tablet Take 400 mg by mouth every 6 hours as needed fo r Pain. Lactulose 20 GM/30ML SOLN Take 20 g by mouth 3 times daily. or more to produce 2-3 soft stools a day. 2000 mL 1 No current facility-administered medications on file prior to visit. No Known Allergies ROS: Not asked due to belligerent behavior and attitude. Physical Examination: BP 132/80 | Pulse 74 | Temp 37 C (98.6 F) (Temporal) | Resp 18 | Wt 109.1 kg (240 l b 8.4 oz) | SpO2 97% | BMI 34.51 kg/m General Appearance: Patient not in pain or any respiratory distress. He is belligerent, and has a somewhat labile mood. He is not jaundiced. HEENT: [place] conjunctivae, anicteric sclerae. No neck vein engorgement. Thyroid not enlarg ed. Cardiovascular: Good S1S2, No murmurs. No rubs/gallops. Rhythm regular. Respiratory: Clear breath sounds with occasional bilateral rare rhonchi in the mid to lower lobes. No crackles/wheezes. Musculoskeletal: No pedal edema. No open wounds. No asterixis. Assessment and Plan: 1. Community acquired pneumonia of left lung, unspecified part of lung XR Chest PA and Lat eral 2. Hepatic cirrhosis, unspecified hepatic cirrhosis type, unspecified whether ascites prese nt (HCC) - he has been abstinent of alcohol for the past several weeks. CBC with Differentia l Comprehensive Metabolic Panel Ammonia Magnesium Alpha Fetoprotein, Tumor Marker Protime INR 3. Anxiety 4. Depression, unspecified depression type 5. Paroxysmal atrial fibrillation (HCC) - he is currently in NSR. He is not an ideal candid ate for chronic anticoagulation given impulsive behavior, poor short-term memory. It is more than likely to incorrectly take this medication and put him at risk for bleeding or even ac berkley CVA. Hossein has poor insight and poor short term memory. Unfortunately, he did not want his sis ter or ex-girlfriend to be contacted. He did not want his daughter Patricia to be present in the room today, either. For anxiety/depression - he is advised to restart escitalopram - it was explained to him th at this will take time to take effect (about 1-2 weeks). Lorazepam was also refilled. He is advised CXR and blood test today. Will follow up w/ him through a phone visit in 1 month. Reviewed discharge summary from most recent hospital admission. Instructions written for the patient: I have called in Lorazepam (anxiety pill) and Escitalopram (another anxiety pill) for you sonya [place] in [place]. Take Escitalopram 1/2 tablet a day for 1 week, then increase to 1 full tablet once a day. Finish your antibiotics. documented i n this encounter Plan of Treatment Not on filedocumented as of this encounter Procedures + +--------+ + + + | Procedure Name | Priori | Date/Time | Associated Diagnosis | Comments | | | ty | | | | + +--------+ + + + | LABS - EXTERNAL SCAN | | 11/07/2019 | | Results for this | | | | 12:00 AM | | procedure are in the | | | | PDT | | results section. | + +--------+ + + + | ECG - EXTERNAL SCAN | | 10/25/2019 | | Results for [...] | + +--------+ + + + | ECHO-EXTERNAL SCAN | | 10/24/2019 | | Results for this | | | | 12:00 AM | | procedure are in the | | | | PST | | results section. | + +--------+ + + + | SPINDLE MAKER REPORT - | | 10/24/2019 | | Results for this | | EXTERNAL SCAN | | 12:00 AM | | procedure are in the | | | | PST | | results section. | + +--------+ + + + documented in this encounter Results XR Chest PA and Lateral (11/26/2019 2:31 [...] | + +---------+ + + Protime INR (11/26/2019 2:27 PM PDT) + + + + + + | Component | Value | Ref Range | Performed | Pathologist | | | | | At | Signature | + + + + + + | Prothrombin | 15.5 (H) | 11.3 - 13.9 | [facility] | | | Time | | seconds | [facility] | | | | | | MEDICAL | | | | | | CENTER - | | | | | | LABORATORY | | + + + + + + | INR | 1.2 (H)Comment: Usual | 0.9 - 1.1 | [...] + | [facility] | [address] | [place] | [phone] | | [facility] | | [address] | | | - LABORATORY | | | | + + + + + Alpha Fetoprotein, Tumor Marker (11/26/2019 2:27 PM PDT) + + + + + + | Component | Value | Ref Range | Performed | Pathologist | | | | | At | Signature | + + + + + + | AFP Tumor | 4.6Comment: Leida | 0.0 - 8.3 ng/mL | [...] in | | | | | | females.This is | | | | | | a corrected report.The | | | | | | previously reported | | | | | | result was:AFP, Serum, | | | | | | Tumor... 3.8 | | | | | | ng/mL | | | | | | 11/28/2019 | | | | + + + + + + + + | Specimen | + + | Blood | + + + + + | Narrative | Performed At | + + + | Performed at: [address] [address], | REFERENCE LAB | | [place], [place] [id number] Dump Worker: Mukund Ponce MD, Phone: | [facility] | | [phone] Specimen Comment: This is a corrected | | | report Specimen Comment: The prior result of AFP, Tumor Marker, | | | is incorrect due Specimen Comment: to a calculation error. The | | | results were underreported Specimen Comment: by a factor of 1.21. | | | Please disregard previous results. | | + + + + + + + + | Performing | Address | City/State/Zipcode | Phone Number | | Organization | | | | + + + + + | REFERENCE LAB | [address] | [place], [place] | [phone] | | [facility] | [address] | [address] | | + + + + + Magnesium (11/26/2019 2:27 PM PDT) + +-------+ + + + | Component | Value | Ref Range | Performed | Pathologist | | | | | At | Signature | + +-------+ + + + | Magnesium | 1.6 | 1.6 - 2.6 mg/dL | [facility] | | | | [...] [address] | [place] | [phone] | | [facility] | | [address] | | | - LABORATORY | | | | + + + + + Ammonia (11/26/2019 2:27 PM PDT) + +---------+ + + + | Component | Value | Ref Range | Performed | Pathologist | | | | | At | Signature | + +---------+ + + + | Ammonia | 111 (H) | 11 - 32 umol/L | [facility] | | | | | | [address] [...] [address] | [place] | [phone] | | [facility] | | [address] | | | - LABORATORY | | | | + + + + + Comprehensive Metabolic Panel (11/26/2019 2:27 PM PDT) + + + + + + | Component | Value | Ref Range | Performed | Pathologist | | | | | At | Signature | + + + + + + | Na | 139 | 136 - 145 | [facility] | | | | | mmol/L | [facility] | | | | | | MEDICAL | | | | | | CENTER - | | | | | | LABORATORY | | + + + + + + | K | 3.5 | 3.4 - 5.1 | [facility] | | | | | mmol/L | [facility] | | | | | | MEDICAL | | | | | | CENTER - | | | | | | LABORATORY | | + + + + + + | Cl | 102 | 98 - 107 mmol/L | [facility] | | | | | | [facility] | | | | | | MEDICAL | | | | | | CENTER - | | | | | | LABORATORY | | + + + + + + | CO2 | 28 | 20 - 31 mmol/L | [facility] [...] + + + + | Glucose | 99 | 60 - 106 mg/dL | [facility] | | | | | | [facility] | | | | | | MEDICAL | | | | | | CENTER - | | | | | | LABORATORY | | + + + + + + | BUN | 9 | 9 - 23 mg/dL | [facility] | | | | | | [facility] | | | | | | [facility] | | | | | | CENTER - | | | | | | LABORATORY | | + + + + + + | Creatinine | 0.88 | 0.70 - 1.30 | [facility] | | | | | mg/dL | [facility] | | | | | | MEDICAL | | | | | | CENTER - | | | | | | LABORATORY | | + + + + + + | eGFR, | >60Comment: GLOMERULAR | >=60 | [facility] | | | non- | FILTRATION | mL/min/1.73m2 | [facility] | | | [place] | RATE,ESTIMATED | | MEDICAL | | | | mL/min/1.91s9Hhyx than | | CENTER - | | [...] + + | Calcium | 9.0 | 8.7 - 10.4 | [facility] | | | | | mg/dL | [facility] | | | | | | MEDICAL | | | | | | CENTER - | | | | | | LABORATORY | | + + + + + + | Albumin | 3.3 | 3.2 - 4.8 g/dL | [facility] | | | | | | [facility] | | | | | | MEDICAL | | | | | | CENTER - | | | | | | LABORATORY | | + + + + + + | Bilirubin | 1.1 | 0.3 - 1.2 mg/dL | [facility] | | | Total | | | [facility] | | | | | | MEDICAL | | | | | | CENTER - | | | | | | LABORATORY | | + + + + + + | Total | 7.4 | 5.7 - 8.2 g/dL | [facility] | | | Protein | | | [facility] | | | | | | MEDICAL | | | | | | CENTER - | | | | | | LABORATORY | | + + + + + + | AST | 54 (H) | 0 - 34 U/L | [...] + + + + | Alkaline | 150 (H) | 46 - 116 U/L | [facility] | | | Phosphatase | | | [facility] | | | | | | MEDICAL | | | | | | CENTER - | | | | | | LABORATORY | | + + + + + + | Globulin | 4.1 (H) | 2.1 - 3.8 g/dL | [...] | | bulin Ratio | | | [facility] | | | | | | [facility]ICAL | | | | | | CENTER - | | | | | | LABORATORY | | + + + + + + | BUN/Creatin | 10.2 | | [facility] | | | ine Ratio | | | [facility] | | | [...] [address] | [place] | [phone] | | [facility] | | [address] | | | - LABORATORY | | | | + + + + + CBC with Differential (11/26/2019 2:27 PM PDT) + + + + + + | Component | Value | Ref Range | Performed | Pathologist | | | | | At | Signature | + + + + + + | White Blood | 7.4 | 4.0 - 11.0 K/uL | [facility] | | | Cells | | | [facility] | | | | | | MEDICAL | | | | | | CENTER - | | | | | | LABORATORY | | + + + + + + | Red Blood | 4.77 | 4.30 - 5.70 | [facility] | | | Cells | | M/uL | [facility] | | | | | | MEDICAL | | | | | | CENTER - | | | | | | LABORATORY | | + + + + + + | Hemoglobin | 14.7 | 13.5 - 18.0 | [facility] | | | | | g/dL | [facility] | | | | | | MEDICAL | | | | | | CENTER - | | | | | | LABORATORY | | + + + + + + | Hematocrit | 43.5 | 40.0 - 51.0 % | [facility] | | | | | | [facility] | | | | | | MEDICAL | | | | | | CENTER - | | | | | | LABORATORY | | + + + + + + | MCV | 91.2 | 83.0 - 101.0 fL | [facility] | | | | | | [facility] | | | | | | MEDICAL | | | | | | CENTER - | | | | | | LABORATORY | | + + + + + + | MCH | 30.8 | 28.0 - 35.0 pg | [facility] [...] + + + + | RDW-CV | 13.2 | <15.0 % | [facility] | | | | | | [facility] | | | | | | MEDICAL | | | | | | CENTER - | | | | | | LABORATORY | | + + + + + + | RDW-SD | 44.6 | 35.1 - 46.3 fL | [facility] | | | | | | [facility] | | | | | | MEDICAL | | | | | | CENTER - | | | | | | LABORATORY | | + + + + + + | Platelet | 144 | 140 - 440 K/uL | [facility] | | | Count | | | [facility] | | | | | | MEDICAL | | | | | | CENTER - | | | | | | LABORATORY | | + + + + + + | MPV | 9.4 | 6.5 - 12.4 fL | [facility] | | | | | | [facility] | | | | | | MEDICAL | | | | | | CENTER - | | | | | | LABORATORY | | + + + + + + | % | 38.6 (L) | 45.0 - 82.0 % | [facility] | | | Neutrophils | | | [facility] | | | | | | MEDICAL | | | | | | CENTER - | | | | | | LABORATORY | | + + + + + + | % | 38.3 | 20.0 - 45.0 % | [facility] | | | Lymphocytes | | | [facility] | | | | | | MEDICAL | | | | | | CENTER - | | | | | | LABORATORY | | + + + + + + | % Monocytes | 14.7 (H) | 4.0 - 12.0 % | [facility] | | | | | | [facility] | | | | | | MEDICAL | | | | | | CENTER - | | | | | | LABORATORY | | + + + + + + | % | 7.3 (H) | 0.0 - 5.0 % | [facility] [...] + + + | % Immature | 0.3 | 0.0 - 0.4 % | [facility] | | | Granulocyte | | | [facility] | | | s | | | MEDICAL | | | | | | CENTER - | | | | | | LABORATORY | | + + + + + + | Absolute | 2.85 | 1.80 - 8.50 | [facility] | | | Neutrophils | | K/uL | [facility] | | | | | | MEDICAL | | | | | | CENTER - | | | | | | LABORATORY | | + + + + + + | Absolute | 2.83 | 0.60 - 3.20 | [facility] | | | Lymphocytes | | K/uL | [facility] | | | | | | MEDICAL | | | | | | CENTER - | | | | | | LABORATORY | | + + + + + + | Absolute | 1.09 (H) | 0.00 - 1.00 | [facility] | | | Monocytes | | K/uL | [facility] | | | | | | MEDICAL | | | | | | CENTER - | | | | | | LABORATORY | | + + + + + + | Absolute | 0.54 (H) | 0.00 - 0.40 | [facility] | | | Eosinophils | | K/uL | [facility] | [...] | Immature | | K/uL | [facility] | | | Granulocyte | | | [...] | nRBC | | K/uL | [facility] | [...] + | [facility] | [address] | [place] | [phone] | | [facility] | | [address] | | | - LABORATORY | | | | + + + + + LABS - EXTERNAL SCAN (11/07/2019 12:00 AM PDT) + + + | Narrative | Performed At | + + + | Ordered by an | | | unspecified provider. | | + + + ECG - EXTERNAL SCAN (10/25/2019 12:00 AM PST) [...] unspecified provider. | | + + + SPINDLE MAKER REPORT - EXTERNAL SCAN (10/24/2019 12:00 AM PST) + + + | Narrative | Performed At | + + + | Ordered by an | | | unspecified provider. | | + + + ECHO-EXTERNAL SCAN (10/24/2019 12:00 AM PST) + + + | Narrative | Performed At | + + + | Ordered by an | | | unspecified provider. | | + + + documented in this encounter Visit Diagnoses + + | Diagnosis | + + | Community acquired pneumonia of left lung, unspecified part of lung - Primary | + + | Hepatic cirrhosis, unspecified hepatic cirrhosis type, unspecified whether ascites | | present (HCC) | + + | Anxiety Anxiety state, unspecified | + + | Depression, unspecified depression type | + + | Paroxysmal atrial fibrillation (HCC) Atrial fibrillation | + + documented in this encounter
--- OUTSIDE RECORDS SUMMARY | ~2020-05-13 | XMS | Encounter Summary ---
Demographics + + + | Address | [address] | | | [place] [address] | + + + | Home Phone [...] + | Author | [facility] | | | and [place] | + + + | Organization | [facility] | | | and [...] Team Providers + +------+ + | Care Grain Merchandising Manager Name | Role | Phone | [...] | 02/24/ | Refill | [facility] | Orly Villavicencio | Medication Refill | | 2017 | | [facility] [address] | [address] | | | | | [place], | [facility] | | | | | [place] [address] | [place] [address] | | | | | [phone] | [phone] | | | | | | | [...]
--- OUTSIDE RECORDS SUMMARY | ~2020-05-13 | XMS | Encounter Summary ---
Demographics + + + | Address | [address] | | | [place] [address] | + + + | Home Phone [...] Team Providers + +------+ + | Care Liquid Flavor Compounder Name | Role | Phone | + [...] | Colon [place] | | | | [place] [address] | [place] [address] | Screening | | | | [phone] | [phone] | | | | | | | [...]
--- OUTSIDE RECORDS SUMMARY | ~2020-05-13 | XMS | Encounter Summary ---
Demographics + + + | Address | [address] | | | [place] [address] | + + + | Home Phone | | + + + | Preferred Language | Unknown | + + + | Marital Status | Single | + + + | Adventism Affiliation | Unknown | + + + | Race | or | + + + | Ethnic Group | Not or | + + + Author + + + | Author | [facility] | | | and [place] | + + + | Organization | [facility] | | | [...] Team Providers + +------+ + | Care Motorbike Courier Name | Role | Phone | + [...] + + | 04/17/ | Office | [facility] | Orly Villavicencio | Alcoholic hepatitis | | 2015 | Visit | [address] | [address] | without ascites | | | | [place], | [address] | (Primary Dx); | | | | [place] [address] | [place] [address] | Elevated LFTs; Drug | | | | [phone] | [phone] | use | | | | | [...] in pain or any respiratory distress. HEENT: [place] conjunctivae, anicteric sclerae. No neck vein engorgement. [...] HISTORY: alcohoism, abnormal liver function tests | [facility] | | COMPARISON:None FINDINGS: Liver:The liver is of normal | [facility] | | echogenicity and echo [...] | + + + + + | [facility] | [address] | [place] | [phone] | | [facility] | | [address] | | | - IMAGING | | [...] | LAB PAML | | | | [id number] or greater | | | | | [...] [place] | | | | | | [address] | | | | + + + [...] [address] | [place] [address] | [phone] | + + + + + Ammonia [...] [address] | [place] | [phone] | | [facility] | | [address] | | | - LABORATORY | | [...] [address] | [place] | [phone] | | [facility] | | [address] | | | - LABORATORY | | [...] | non- | FILTRATION | mL/min/1.73m2 | [facility] | | | [place]adian | RATE,ESTIMATED | | MEDICAL | | | | mL/min/1.76u0Qlzx than | | CENTER - | | [...] + | [facility] | [address] | [place] | [phone] | | [facility] | | [address] | | | - LABORATORY | | [...] ST. | [address] [place] [address] | [place] | [phone] | | [facility] | | [address] | | | - LABORATORY | | [...]
--- OUTSIDE RECORDS SUMMARY | ~2020-05-13 | XMS | Encounter Summary ---
Demographics + + + | Address | [address] | | | [place] [address] | + + + | Home Phone | | + + + | Preferred Language | Unknown | + + + | Marital Status | Single | + + + | Protestant Affiliation | Unknown | + + + [...] Team Providers + +------+ + | Care Community Recreation Coordinator Name | Role | Phone | [...] + + | 09/30/ | Office | [facility] | Orly Villavicencio | Chronic hepatitis C | | 2018 | Visit | [address] | [address] | without hepatic coma | | | | AVE [place] [facility], | [facility] | (HCC) (Primary Dx); | | | | [place] [address] | [place] [address] | Contusion of left | | | | [phone] | [phone] | chest wall, | | | | [...] in pain or any respiratory distress. HEENT: [place] conjunctivae, anicteric sclerae. No neck vein engorgement. [...] a good life". Spent 25 minutes in [id number] time with the patient, with greater than [...] [address] | [place] | [phone] | | [facility] | | [address] | | | - LABORATORY | | [...] | + + + + + | [facility] | [address] | [place] | [phone] | | [facility] | | [address] | | | - LABORATORY | | | | + + + + + Hepatitis C RNA, Quant, NAAT (09/30/2017 5:09 PM PST) + + + + + + | Component | Value | Ref Range | Performed | Pathologist | | | | | At | Signature | + + + + + + | HCV | [id number] | IU/mL | [facility]FER[facility] | | | [...] | REFERENCE LAB | | [place] [id number] Music Orchestrator: Jatin Hernandez MD, Phone: | [facility] | | [phone] | | + + + + + + + + | Performing | Address | City/State/Zipcode | Phone Number | | Organization | | | | + + + + + | REFERENCE LAB | [address] | [place], [place] | [phone] | | [place] | [place] | [address] | | + + + + + [...] + | [facility] | [address] | [place] | [phone] | | [facility] | | [address] | | | - LABORATORY | | [...] | non- | FILTRATION | mL/min/1.73m2 | [facility] | | | [place]uan | RATE,ESTIMATED | | MEDICAL | | | | mL/min/1.73y1Jlty than | | CENTER - | | [...] | | | | | mg/dL | [facility] | | | | | | [...] + | [facility] | [address] | [place] | [phone] | | [facility] | | [address] | | | - LABORATORY | | [...] [address] | [place] | [phone] | | [facility] | | [address] | | | - LABORATORY | | [...]
--- OUTSIDE RECORDS SUMMARY | ~2020-05-13 | XMS | Encounter Summary ---
Demographics + + + | Address | [address] | | | [place] [address] | + + + | Home Phone [...] Author + + + | Author | [facility] | | | and [place] | + + + | Organization | [facility] | | | [...] Team Providers + +------+ + | Care Service Control Operator Name | Role | Phone | [...] with nausea, | [address] | [place], | | | | | unspecified | [place] | [place] [address] | | | | | vomiting | [place] | Phone: | | | | | type | [address] | [phone] | | | | | Hepatic | Phone: | Fax: | | | | | cirrhosis, | [phone] | [phone] | | | | | unspecified | Fax: | | | | | | hepatic | [phone] | | | | | | cirrhosis [...] | 05/03/ | Orders Only | [facility] | Orly Villavicencio | Intractable vomiting | | 2019 | | [address] | [address] | with nausea, | | | | [address]VE [place], | [address] [place] | unspecified vomiting | | | | [place] [id number] | [place] [address] | type (Primary Dx); | | | | [phone] | [phone] | Hepatic cirrhosis, | | | | [...]
--- OUTSIDE RECORDS SUMMARY | ~2020-05-13 | XMS | Encounter Summary ---
Demographics + + + | Address | [address] | | | [place] [address] | + + + | Home Phone [...] Team Providers + +------+ + | Care Digital Marketing Coordinator Name | Role | Phone | [...] | | | | | coma, | [address] | [address] | | | | | unspecified | Phone: | Phone: | | | | | chronicity | [phone] | [phone] | | | | | Alcoholic | Fax: | Fax: | | | | | liver | [phone] | [phone] | | | | | disease | [...] + + | 04/23/ | Telephone | [facility] | Orly Villavicencio | Results | | 2014 | | MEDICINE [address] | [address] | | | | | [place], | [address] | | | | | [place] [address] | [place] [address] | | | | | [phone] | [phone] | | | | | | | [...] + + +--------+ + + | * [facility] [place] | Outpatient | Routin | Hepatitis [...] + + + | HCV Viral | [id number] (A)Comment: | NOTDET IU/mL | REFERENCE | [...] [place] | | | | | | [address] | | | | + + + [...] [address] | [place] [address] | [phone] | + + + + + HIV [...] order | | | | | | [id number] to order | | | | | [...] | | | | | may go [employer] to | | | | | | access literature | | | | | | regarding the change in | | | | | | HIVmethodologies. You | | | | | | may also contact [facility] | | | | | | Client Services | | | | | | foradditional | | | | | | information.Testing | | | | | | Performed: [facility], [address] | | | | | | [address], [place] | | | | | | [address] | | | | + + + [...] [address] | [place] [address] | [phone] | + + + + + Ammonia [...] ST. | [address] | [place] | [phone] | | [facility] | | [address] | | | - LABORATORY | | [...] [facility] | | | [place] | RATE,ESTIMATED | | MEDICAL | | | | mL/min/1.69a8Kjbq than | | CENTER - | | [...] ST. | [address] | [place] | [phone] | | [facility] | | [address] | | | - LABORATORY | | [...]
--- OUTSIDE RECORDS SUMMARY | ~2020-05-13 | XMS | Encounter Summary ---
Demographics + + + | Address | [address] | | | [place] [address] | + + + | Home Phone | | + + + | Preferred Language | Unknown | + + + | Marital Status | Single | + + + | Methodist Affiliation | NON | + + + | Race | or | + + + | Ethnic Group | Not or | + + + Author + + + | Author | [facility] | + + + | Organization | [facility] | + + + | Address | Unknown | + + + | Phone | Unavailable | + + + Support + + +---------+ + | Name | Relationship | Address | Phone | + + +---------+ + | Kacey Holcomb | ECON | Unknown | | + + +---------+ + Care Team Providers + +------+ + | Care Program Evaluator Name | Role | Phone | + [...] | 2006 | Visit | Center at [facility] [address] | [address] | (Primary Dx) | | | | [address] | [address] [place], | | | | | Mailcode: CH8N | [place] [address] | | | | | [facility] | [phone] | | | | | and Healing, | | | | | | Building | | | | | | [place], [place] | | | | | | [address] | | | | | | [phone] | | | +--------+---------+ + + + [...] occurred on 07/09/07. He was admitted to [facility] and was referred here by [facility] trauma. The symptoms are located in the [...] | + + +--------+ + + | PA CLOSED TREAT VERT | Procedures | Routin [...]
--- OUTSIDE RECORDS SUMMARY | ~2020-05-13 | XMS | Encounter Summary ---
Demographics + + + | Address | [address] | | | [place] [address] | + + + | Home Phone [...] + + + | Author | [facility] | | | and [place] | + + + | Organization | [facility] | | [...] Team Providers + +------+ + | Care Smoke Jumper Name | Role | Phone | + [...] + + | 06/19/ | Office | [facility] | Orly Villavicencio | Alcoholism (HCC) | | 2019 | Visit | [address]IC[address] | [address] | (Primary Dx); | | | | [address] [place], | [address] [place] | Depression, | | | | [place] [address] | [place] [address] | unspecified | | | | [phone] | [phone] | depression type; | | | | [...] is slightly somber. Has inappropriate laughter. HEENT: [place] conjunctivae, slightly yellow and "dirty" appearing sclerae. [...] evaluate the patient. Spent 25 minutes in [id number] time with the patient, with greater than [...]
--- OUTSIDE RECORDS SUMMARY | ~2020-05-13 | XMS | Encounter Summary ---
Demographics + + + | Address | [address] | | | [place] [address] | + + + | Home Phone [...] Author + + + | Author | [facility] | | | and [place] | + + + | Organization | [facility] | [...] Team Providers + +------+ + | Care Glassware Engraver Name | Role | Phone | + [...] + + | 06/02/ | Telephone | [facility] | Orly Villavicencio | Medication Question | | 2018 | | MEDICINE [address] | [address] | | | | | [place], | [address] [facility] | | | | | [place] [address] | [place] [address] | | | | | [phone] | [phone] | | | | | | | [...] to notify patient. elephone Encounter - Nay Skyes RN - 06/08/2018 2 :49 PM PDTTried [...]
--- OUTSIDE RECORDS SUMMARY | ~2020-05-13 | XMS | Encounter Summary ---
Demographics + + + | Address | [address] | | | [place] [address] | + + + | Home Phone | | + + + | Preferred Language | Unknown | + + + | Marital Status | Single | + + + | Roman Catholic Affiliation | Unknown | + + + [...] Team Providers + +------+ + | Care Rules Examiner Name | Role | Phone | + [...] + + | 06/19/ | Emergency | [facility] | Mamadou Del Real MD | Depression, | | 2018 | | [facility] | [address] | unspecified | | | | CENTER [address] | [place] | depression type | | | | [place] | [address] | (Primary Dx); | | | | [address] | | Alcohol abuse | | | | [phone] | | | +--------+ + + + [...] be sent through Care Everywhere.Addiction, Gen yvan (Eritrean)documented in this encounter Medications at Time of [...] might be different from t he original. [facility] Hossein Holcomb Emergency Department Encounter Note [address] [place] [address] PCP:Orly Villavicencio MD [phone] CHIEF COMPLAINT: Chief Complaint Patient presents with Detox Evaluation ED Room: [facility] [address] Hossein Holcomb is a 63 y.o. 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 Lives with sister. He is "uncertain" [...] were reviewed along with EMS notes and intermediate record s if applicable. (See chart for details) Medications and Allergy list reviewed. Nurses note and old records were reviewed The patient was seen and examined, Patient is a 63-year-old male with past medical history of alcohol abuse who presents [facility] detox and mental health evaluation. Reports that [...] + | [facility] | [address] | [place] | [phone] | | [facility] | | [address] | | | - LABORATORY | | [...] [address] | [place] | [phone] | | [facility] | | [address] | | | - LABORATORY | | [...] ST. | [address] | [place], [place] | [phone] | | [facility] | | [address] | | | - LABORATORY | | [...] [address] | [place] | [phone] | | [facility] | | [address] | | | - LABORATORY | | [...] + | [address] | [address] | [place], [place] | [phone] | | [facility] | | [address] | | | - LABORATORY | | [...] | mL/min/1.73m2 | [facility] | | | Samoan | RATE,ESTIMATED | | MEDICAL | | | | mL/min/1.75b4Ifpc than | | CENTER - | | [...] [address] | [place] | [phone] | | [facility] | | [address] | | | - LABORATORY | | [...] ST. | [address] | [place] | [phone] | | [facility] | | [address] | | | - LABORATORY | | [...]
--- OUTSIDE RECORDS SUMMARY | ~2020-05-13 | XMS | Encounter Summary ---
Demographics + + + | Address | [address] | | | [place] [address] | + + + | Home Phone [...] Team Providers + +------+ + | Care Temple Marker Name | Role | Phone | + [...] + + | 12/01/ | Telephone | [facility] | Orly Villavicencio | Coughing Up Blood; | | 2017 | | [address]IC[address] | [address] | Alcohol | | | | [place], | [address] | Intoxication; | | | | [place] [address] | [place] [address] | Hallucinations; | | | | [phone] | [phone] | Grief/ Loss | | | | [...] says he tried to be seen at [facility] and they refused. Lesia agrees to get patient and arrange for patient to get t o ED, [facility]. This routed to Dr Saud NGUYEN. documented in this encounter Plan of Treatment Not on filedocumented as of this encounter Visit Diagnoses Not on filedocumented in this encounter"
--- OUTSIDE RECORDS SUMMARY | ~2020-05-13 | XMS | Encounter Summary ---
Demographics + + + | Address | [address] | | | [place] [address] | + + + | Home Phone | | + + + | Preferred Language | Unknown | + + + | Marital Status | Single | + + + | Mu-Ism Affiliation | Unknown | + + + [...] Team Providers + +------+ + | Care Commercial Intern Name | Role | Phone | + +------+ + | Orly Villavicencio MD | PCP | | + +------+ + Encounter Details +--------+ + + + + | Date | Type | Department | Care Team | Description | +--------+ + + + + | 03/26/ | Hospital | [facility] | Orly Villavicencio | Hepatitis C virus | | 2016 | Encounter | MED CTR LABORATORY | [address] | infection without | | | | [address] [place] | [address] [place] | hepatic coma, | | | | [place], [place] | [place] [address] | unspecified | | | | [address] | [phone] | chronicity; Abnormal | | | | [phone] | | LFTs | +--------+ + + + + Social [...] | 0 | 03/23/20 | | | HYDROcodone-acetamin | mouth every [...] 1 AND 2 AB | Routin | 03/26/2016 | Hepatitis C virus | Results for this | | SCREEN REFLEXIVE | e | 11:21 AM | infection without | procedure are in the | | | | PDT | hepatic coma, | results section. | | | | | unspecified | | | | | | chronicity | | + +--------+ + + + | HEPATITIS C RNA, | Routin | 03/26/2016 | Hepatitis C virus | Results for this | | QUANT, NAAT | e | 11:21 AM | infection without | procedure are in the | | | | PDT | hepatic coma, | results section. | | | | | unspecified | | | | | | chronicity | | + +--------+ + + + | AMMONIA | Routin | 03/26/2016 | Hepatitis C virus | Results for this | | | e | 11:21 AM | infection without | procedure are in the | | | | PDT | hepatic coma, | results section. | | | | | unspecified | | | | | | chronicity | | + +--------+ + + + | COMPREHENSIVE | Routin | 03/26/2016 | Hepatitis C virus | Results for this | | METABOLIC PANEL | e | 11:21 AM | infection without | procedure are in the | | | | PDT | hepatic coma, | results section. | | | | | unspecified | | | | | | chronicity | | + +--------+ + + + documented in this encounter Results Hepatitis C RNA, Quant, [...] + + + | HCV Viral | [id number] (A)Comment: | NOTDET IU/mL | REFERENCE | [...] [place] | | | | | | [address] | | | | + + + [...] [address] | [place] [address] | [phone] | + + + + + HIV [...] order | | | | | | [id number] to order | | | | | [...] | | | | | may go [employer] to | | | | | | access literature | | | | | | regarding the change in | | | | | | HIVmethodologies. You | | | | | | may also contact [employer] | | | | | | Client Services | | | | | | foradditional | | | | | | information.Testing | | | | | | Performed: [facility], [address] | | | | | | [address], [place] | | | | | | [address] | | | | + + + + + + + + | Specimen | + + | Blood specimen | | (specimen) | + + + + + + + | Performing | Address | City/State/Zipcode | Phone Number | | Organization | | | | + + + + + | [facility] | [address] | [place] [address] | [phone] | + + + + + Ammonia [...] [address] | [place] | [phone] | | [facility] | | [address] | | | - LABORATORY | | [...] | non- | FILTRATION | mL/min/1.73m2 | [facility] | | | Angolan | RATE,ESTIMATED | | MEDICAL | | | | mL/min/1.19a6Ksnt than | | CENTER - | | [...] | | | | | mg/dL | [facility] | | | | | | MEDICAL [...] ST. | [address] | [place], [place] | [phone] | | [facility] | | [address] | | | - LABORATORY | | | | + + + + + documented in this encounter Visit Diagnoses + + | Diagnosis | + + | Hepatitis C virus infection without hepatic coma, unspecified chronicity | + + | Abnormal LFTs Other abnormal blood chemistry | + + documented in this encounter"
--- OUTSIDE RECORDS SUMMARY | ~2020-05-13 | XMS | Encounter Summary ---
Demographics + + + | Address | [address] | | | [place] [address] | + + + | Home Phone [...] + + + | Author | [facility] | | | and [place] | + + + | Organization | [facility] | | [...] Providers + +------+ + | Care Manager Rfid Name | Role | Phone | + [...] + + | 10/24/ | Telephone | [facility] | Orly Villavicencio | Hospitalization; | | 2019 | | [address] | [address] | Cough; Anxiety | | | | [place], | [address] [place] | | | | | [place] [address] | [place] [address] | | | | | [phone] | [phone] | | | | | | | [...] out. She states they use [facility]. Lorazepam 1 mg, last filled on 08/08/19 [...] Dr Villavicencio review. Requested more records from [facility]. elephone Encounter - Natalia Hastings RN - 11/14/2019 3:22 PM PDTCalled [facility]. Requested records. Electronically signed by Natalia Hastings RN at 10/21 3:23 PM PDTTelephone Encounter - Natalia Hastings RN - 11/13/2019 1:59 PM PDTSpoke to Lesia. She says patient was discharged from [facility] last week. He has been off alcohol for one month. He told Lesia that he will never drink again as being on a Ventilator for 3 weeks scared him. He is feeling better. "He pulled out of it". Lesia says no discharge instructions were given to patient. Requested Discharge summary from [facility]. Faxed this request to [facility] [phone]/Urgent. elephone Orly Kim MD - 11/12 11:07 AM PDTReviewed. Can we get an update on this patient. Thanks. elephone En elissa - Natalia Hastings RN - 10/29/2019 2:09 PM PDTNotes received and to Dr Villavicencio for re view. elephone Radhat er Natalia Veliz RN - 10/29/2019 11:[address] [facility]. We need to fax request to [phone]. Request faxed. elepho ne Orly Kim MD - 10/29/2019 11:38 AM PDTPlease obtain records f [facility]. Thanks. elephone En elissa - Natalia Hastings RN - 10/29/2019 9:46 AM PDTPhone call to Lesia, the girlfriend . She says patient went to [facility] ED last Tuesday and is now admitted in [facility]. She says she is not allowed to [...] Lesia says the daughter did not let [facility] know that you were his PCP. 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 Lesia says she has this knowledge from other family members of patient. Lesia herself is not allowed to visit. elephone Encounter - Natalia Hastings RN - 10/29/2019 9:37 AM [facility]? For what reason please? elephone Encounter [...]
--- OUTSIDE RECORDS SUMMARY | ~2020-05-13 | XMS | Encounter Summary ---
Demographics + + + | Address | [address] | | | [place] [address] | + + + | Home Phone | | + + + | Preferred Language | Unknown | + + + | Marital Status | Single | + + + | Jain Affiliation | Unknown | + + + | Race | or | + + + | Ethnic Group | Not or | + + + Author + + + | Author | [facility] | | | and [place] | + + + | Organization | [facility] | [...] Providers + +------+ + | Care Manager Small Business Name | Role | Phone | + [...] + + | 03/30/ | Telephone | [facility] | Orly Villavicencio | Results | | 2016 | | [address] | [address] | | | | | [place], | [address] | | | | | [place] [address] | [place] [address] | | | | | [phone] | [phone] | | | | | | | [...] she was notified. Per Lesia, just use [place] [employer] insurance. Per Patient as voiced by Lesia, DO NOT attempt to get Cherelle Jackson authorization/Approval by Cherelle jackson. These n otes entered into the referral. azure principal solution specialist notified. elephone Encounter - Natalia Hastings [...]
--- OUTSIDE RECORDS SUMMARY | ~2020-05-13 | XMS | Encounter Summary ---
Demographics + + + | Address | [address] | | | [place] [address] | + + + | Home Phone | | + + + | Preferred Language | Unknown | + + + | Marital Status | Single | + + + | Holiness Affiliation | Unknown | + + + [...] Team Providers + +------+ + | Care Relay Dispatcher Name | Role | Phone | + [...] | 08/23/ | Refill | [facility] | Orly Villavicencio | Medication Refill | | 2019 | | [address] | [address] | | | | | [place], | [address] [place] | | | | | [place] [address] | [place] [address] | | | | | [phone] | | | | | | | [...]
--- OUTSIDE RECORDS SUMMARY | ~2020-05-13 | XMS | Encounter Summary ---
Demographics + + + | Address | [address] | | | [place] [address] | + + + | Home Phone [...] Author + + + | Author | [facility] | | | and [place] | + + + | Organization | [facility] | | [...] Providers + +------+ + | Care Industrial Cook Name | Role | Phone | + +------+ + | Orly Villavicencio MD | PCP | | + +------+ + Encounter Details +--------+ + + + + | Date | Type | Department | Care Team | Description | +--------+ + + + + | 04/29/ | Hospital | [facility] | Orly Villavicencio | Alcoholic hepatitis | | 2015 | Encounter | MED CTR ULTRASOUND | [address] | without ascites | | | | [address] [place] | [address] [place] | | | | | [place], [place] | [place] [address] | | | | | [address] | [phone] | | | | | [phone] | | | | | | | [...] HISTORY: alcohoism, abnormal liver function tests | [facility] | | COMPARISON:None FINDINGS: Liver:The liver is of normal | [facility] | | echogenicity and [...] [address] | [place] | [phone] | | [facility] | | [address] | | | - IMAGING | | | | + + + + + documented in this encounter Visit Diagnoses + + | Diagnosis | + + | Alcoholic hepatitis without ascites Acute alcoholic hepatitis | + + documented in this encounter"
--- OUTSIDE RECORDS SUMMARY | ~2020-05-13 | XMS | Encounter Summary ---
Demographics + + + | Address | [address] | | | [place] [address] | + + + | Home Phone [...] Team Providers + +------+ + | Care Door Operator Name | Role | Phone | [...] + | 04/12/ | Refill | [facility] | Orly Villavicencio | Medication Refill | | 2018 | | [address] | [address] | | | | | [place], | [address] [place] | | | | | [place] [address] | [place] [address] | | | | | [phone] | [phone] | | | | | | | [...] PDTDr Saud RX lorazepam sent to front window cashier to please fax to [facility]. ddend um Note - David Bowers RN - 04/17/2018 10:59 AM PDT Addended by: DAVID BOWERS on: 10:59 Modules accepted: Orders elephone Encounte r - David Bowers RN - 04/17/2018 10:50 AM PDTMedication -LORAZEPAM Quantity -20 Amount of medication remaining -UNKNOWN Last refill date -12/01/17 [facility] Last appointment -12/06/17 Next appointment -05/02/18 [...]
--- OUTSIDE RECORDS SUMMARY | ~2020-05-13 | XMS | Encounter Summary ---
Demographics + + + | Address | [address] | | | [place] [address] | + + + | Home Phone [...] + + + | Author | [facility] | | | and [place] | + + + | Organization | [facility] | | | [...] Team Providers + +------+ + | Care Physics Department Chair Name | Role | Phone | [...] + + | 04/18/ | Telephone | [facility] | Orly Villavicencio | Results | | 2014 | | [address] | [address] | | | | | [place], | [address] [place] | | | | | [place] [address] | [place] [address] | | | | | [phone] | | | | | | | [...]
--- OUTSIDE RECORDS SUMMARY | ~2020-05-13 | XMS | Encounter Summary ---
Demographics + + + | Address | [address] | | | [place] [address] | + + + | Home Phone [...] + + + | Author | [facility] | | | and [place] | + + + | Organization | [facility] | | | and [...] Team Providers + +------+ + | Care Consumer Affairs Director Name | Role | Phone | + +------+ + | Orly Villavicencio MD | PCP | | + +------+ + Encounter Details +--------+ + + + + | Date | Type | Department | Care Team | Description | +--------+ + + + + | 05/12/ | Hospital | [facility] | SaudBreannaOrly Daria | Chronic hepatitis C | | 2018 | Encounter | MED CTR ULTRASOUND | [address] | without hepatic coma | | | | [address] [place] | [address] [place] | (HCC); Alcoholism | | | | [place], [place] | [place] [address] | (HCC); Ascites due | | | | [address] | [phone] | to alcoholic | | | | [phone] | | hepatitis | +--------+ + + [...] mildly | | | enlarged. Splenomegaly likely denial management representative of portal venous | | | [...] enlarged. | | | | Splenomegaly likely denial management representative of portal venous hypertension. | | [...]
--- OUTSIDE RECORDS SUMMARY | ~2020-05-13 | XMS | Encounter Summary ---
Demographics + + + | Address | [address] | | | [place] [address] | + + + | Home Phone [...] Team Providers + +------+ + | Care Roustabout Pusher Name | Role | Phone | + [...] + + | 06/29/ | Office | [facility] | Lesia Nagel, | Leg injury, right, | | 2015 | Visit | CARE [address] | Need updated | initial encounter | | | | [place] | address | (Primary Dx); | | | | [address] | | Infected open wound | | | | [phone] | | | +--------+---------+ + + + [...] re-open Bleeding not controlled by direct pressure [id number] [employer]. [address] [place] [address]. All righ ts reserved. This information is [...] surrounding erythema This note was dictated using [employer] voice recognition software. Occasional wrong- word or [...] + | [facility] | [address] | [place], [place] | [phone] | | [facility] | | [address] | | | - IMAGING | | | | + + + + + documented in this encounter Visit Diagnoses + + | Diagnosis | + + | Leg injury, right, initial encounter - Primary | + + | Infected open wound | + + documented in this encounter
--- OUTSIDE RECORDS SUMMARY | ~2020-05-13 | XMS | Encounter Summary ---
Demographics + + + | Address | [address] | | | [place] [address] | + + + | Home Phone [...] Team Providers + +------+ + | Care Commutator Assembler Name | Role | Phone | + +------+ + | Orly Villavicencio MD | PCP | | + +------+ + Reason for Visit + +--------+ + | Reason | Onset | Comments | | | Date | | + +--------+ + | TCM - Hosp FU | 04/22/ | | | | 2020 | | + +--------+ + Encounter Details +--------+ + + + + | Date | Type | Department | Care Team | Description | +--------+ + + + + | 04/22/ | Telephone | [facility] | Orly Villavicencio | [facility] | | 2020 | | POPULATION HEALTH | [address] | | | | | [address] | [address] | | | | | [address] | [place] [address] | | | | | [place] [address] | [phone] | | | | | [phone] | | | +--------+ + + + [...] Telephone Encounter - Orly Villavicencio MD - 05/13/2020 4:30 PM PDTSpoke to Morris cerrato. He is obviously drunk. Spoke to nephew DANIELLE. Advised to get him to the hospital and call 911 if needed to assist him. Discussed that he can if he does not seek medical treatment. Discussed that Hossein is not in the right frame of mind to make decisions. TJ verbalized understanding and will call for assistance. elephone En counter - Natalia Hastings RN - 05/13/2020 3:58 PM PDTCall to patient. He says he is drunk . He says he is coughing up blood and is bleeding from his rectum. He says his liver hurts him. He says he drinks 20 beers a day a jug of whiskey that takes 4.5 days to drink. He refuses to go to the ED. He says he "already got chewed out by his sister and girlfrien d today". He says they want him to go to the ED as well. He refuses. He refuses to come here for a follow up as well. I told him he could from bleeding if he does not go to the hospital. He again says he refuses to go to the ED as they "dont let me drink or smoke". He says "I love alcohol". He asks to talk to Dr Villavicencio. Call transferred to Dr Villavicencio. 4:0 5 PM PDTTelephone Encounter - Nay Sykes RN - 05/08/2020 10:20 AM PDTAttempted to reach patient, no answer, voicemail is not set up. Left message for KEN Gomez to please have patient call back as we are checking in due to a m issed appt. elephone Encounter - Natalia Hastings RN - 05/06/2020 3:34 PM PDTPhone call to patient. No answer, no voicemai l elephone Encounter - Radha Hoyt RN - 05/02/2020 9:59 AM PDTCalled patient, no answer, no voicemail. Called Patricia, left voicemail to call back. elephone Encounter - Natalia Hastings RN - 04/30/2020 3:53 PM PDTPhone call to patient. No answer, no voicemail Call to Patricia, emergency contact, left a message to please call us back. Electronically si gned by Natalia Hastings RN at 04/30/2020 3:55 PM PDTTelephone Encounter - Natalia Hastings RN - 04/29/2020 9:12 AM PDTPhone call to patient. No answer, no voicemail.Electronically s igned by Natalia Hastings RN at 04/29/2020 9:12 AM PDTTelephone Encounter - Orly Villavicencio MD - 04/26/2020 10:48 AM PDTPlease follow up on patient. He no-showed last week. He needs post-hospital discharge follow up. Thanks. elephone En elissa - Dana Goins RN - 04/23/2020 2:11 PM PDT2nd attempt for TCM outreach. voicemail is not set up. Called Patricia, patient contact. She said she will send patient a text that we are trying to reach him and will let him know of his appointment tomorrow with PCP. elephone Richmondo Dana Jeffrey RN - 04/22/2020 4:37 PM PDT SITUATION Transitional Care Management for follow-up on discharge from: Inpatient Acute Hospital Eligible for TCM Billing LOS [id number]? yes Patient questions/concerns needing provider review: 1st attempt for TCM outreach. Unable to leave a voicemail due to being full/not setup/or no n working number. Will attempt again tomorrow. Other number listed in chart under patients name was the wrong number. Note: Sepsis: Patient will complete a two week course of antibiotics with doxycycline as an outpa tient. Alcoholic dependence: Encouraged him to quit, he was provided with multiple resources and e ncouraged to follow up with PCP regarding potential medications to decrease his desire for a lcohol. Issues to address at follow up: -Monitoring of healing of open blister on back of left calf -Continue conversations about alcohol cessation and consideration for pharmacological thera py. (you may consider using outpatient Pharmacy for assistance if you like). Records faxed to PCP for TCM visit. See included imaging, labs, and medication list. BACKGROUND Admission Date: 04/16/20 @ [facility] Discharge Date: 04/21/20 Discharge Disposition:Home Principle Discharge Diagnosis: Sepsis secondary to lower left extremity cellulitis Alcoholic hepatitis Hyponatremia Alcohol dependence syndrome with withdrawal ASSESSMENT General: Diet: Diet restrictions: None Medication Literacy: Stop taking: Lorazepam Nortriptyline Ibuprofen Start taking: Nicotine 21 mg. 1 Patch applied transdermal every day. Doxycycline hyclate 100 mg capsule. Take orally twice daily. Continue: Furosemide Escitalopram Discharge needs: None RECOMMENDATION Follow-up appointment with: PCP on 04/24/20. Future Appointments Date Time Provider Department Center 04/24/2020 3:00 PM Orly Villavicencio MD [facility] Any other Specialists, Out-patient Therapy or Diagnostics/Labs: n/a documented in this encounter Plan of Treatment Not on filedocumented as of this encounter Visit Diagnoses Not on filedocumented in this encounter
--- OUTSIDE RECORDS SUMMARY | ~2020-05-13 | XMS | Encounter Summary ---
Demographics + + + | Address | [address] | | | [place] [address] | + + + | Home Phone | | + + + | Preferred Language | Unknown | + + + | Marital Status | Single | + + + | Anabaptist Affiliation | Unknown | + + + | Race | or | + + + | Ethnic Group | Not or | + + + Author + + + | Author | [facility] | | | and [place] | + + + | Organization | [facility] | | [...] Team Providers + +------+ + | Care District Engineer Name | Role | Phone | [...] + | 12/23/ | Virtual | [facility] | Orly Villavicencio | Hepatic cirrhosis, | | 2019 | Office | [address]ICINE [address] | [address] | unspecified hepatic | | | Visit | [place], | [address] [facility] | cirrhosis type, | | | | [place] [address] | [place] [address] | unspecified whether | | | | [phone] | [phone] | ascites present | | | | [...] is refilled. Clinical discussion length: 11-20 min (22523) Patient has not been seen in office [...] Telephone. Participant is currently at home in [place], [place]. HPI: Hossein is being followed up [...]
--- OUTSIDE RECORDS SUMMARY | ~2020-05-13 | XMS | Encounter Summary ---
Demographics + + + | Address | [address] | | | [place] [address] | + + + | Home Phone [...] Team Providers + +------+ + | Care Development Manager Name | Role | Phone | [...] + + | 03/23/ | Telephone | [facility] | Orly Villavicencio | Results | | 2016 | | [address]ICINE [address] | [address] | | | | | [place], | [address] | | | | | [place] [address] | [place] [address] | | | | | [phone] | [phone] | | | | | | | [...] - 03/24/2016 10:40 AM PDTPatient in to crop picker prescription with [place]hi[place] ID elephone Encounter - Celeste Wright - 03/23/2016 2:37 PM PDTPrescription p laced in cabinet for crop picker with photo id.Electronically signed by Celeste Wright at 09/2015 2:38 PM PDTTelephone Encounter - Natalia Hastings RN - 03/23/2016 1:22 PM PDTRX refugio azepam faxed to [facility]. RX hydrocodone sent to front office java developer ready for crop picker. Lidia notified this is ready to pic [...] furosem dee dee and potassium sent to [facility]. Lidia says: 1. Patient is [...] letter from Dr Villavicencio, to "Gagan Liriano, [place], stating that danyelle blandon is under the [...] calling back. She can be reached at [phone] signed by Bruno Krueger at 03/23/2016 9:32 [...]
--- OUTSIDE RECORDS SUMMARY | ~2020-05-13 | XMS | Encounter Summary ---
Demographics + + + | Address | [address] | | | [place] [address] | + + + | Home Phone [...] Team Providers + +------+ + | Care Catering Manager Name | Role | Phone | [...] + + | 05/08/ | Telephone | [facility] | Orly Villavicencio | Referral (GI); | | 2018 | | [facility] [address] | [address] | Referral (US abdomen | | | | [place], | [address] | limited); Referral | | | | [place] [address] | [place] [address] | (US aorta) | | | | [phone] | [phone] | | | | | | | [...] PDTHeather returned call can be reached at [phone] elephone Encounter - Natalia De La Cruz RN - 05/22/2019 11:20 AM PDTSpoke to patient. He says he is [employer] and he s ays he knew [...] answer her phone. Patient says he is [place] [employer] and may not have service when [...] this and asks I call his girlfriend [phone] to schedule. Call to Lesia. She agrees [...]
--- OUTSIDE RECORDS SUMMARY | ~2020-05-13 | XMS | Encounter Summary ---
Demographics + + + | Address | [address] | | | [place] [address] | + + + | Home Phone | | + + + | Preferred Language | Unknown | + + + | Marital Status | Single | + + + | Temple Affiliation | NON | + + + | Race | or | + + + | Ethnic Group | Not or | + + + Author + + + | Author | [facility] | + + + | Organization | [facility] | + + + | Address | Unknown | + + + | Phone | Unavailable | + + + Support + + +---------+ + | Name | Relationship | Address | Phone | + + +---------+ + | Kacey Holcomb | ECON | Unknown | | + + +---------+ + Care Team Providers + +------+ + | Care Coffee Urn Attendant Name | Role | Phone | [...] [address] | | | | | | [place], [place] | | | | | | [address] | | | +--------+ + + + [...] as of this encounter Discharge Summaries Interface, Motorcycle Sales Associate In - 08/08/2007 2:29 AM PST [id number] KATHERINE KARIMI [id number] Admission Date: 07/09/2007 Discharge Date: 07/10/2007 Staff Physician: Winifred Miranda M.D. Principal Final Diagnosis: C6 vertebral fracture. Principal Procedure: 1. [place] collar fitting. 2. Spine Service consultation. Additional [...] For this reason, he was transferred to [facility] for further evaluation and treatment. Hospital Course: The patient was admitted to the Emergency Department and confirmed to have an end plate fracture of the C6 vertebral body. He was seen by our Spine Consultation Service. He was fitted with an [place] collar and evaluated by Physical Therapy safety with ambulation. On the following day, he was felt ready for discharge to home with followup in the [facility] in 3 weeks' time. Condition on Discharge: Stable. Discharge Instruction(s): [place] collar to be worn at all times. Followup: He had follow up with the Trauma Clinic as needed, and should otherwise follow up with Orthopedics Spine Surgery. Winifred Miranda M.D. JOVANI / MANI [id number] / [id number] / [id number] / Electronically signed by Winifred Miranda 08-07-2007 04:15:53 PM documented in this encounter Plan of Treatment Not on filedocumented as of this encounter Visit Diagnoses Not on filedocumented in this encounter"
--- OUTSIDE RECORDS SUMMARY | ~2020-05-13 | XMS | Encounter Summary ---
Demographics + + + | Address | [address] | | | [place] [address] | + + + | Home Phone [...] Team Providers + +------+ + | Care Household Appliances Service Technician Name | Role | Phone | + +------+ + | Orly Villavicencio MD | PCP | | + +------+ + Encounter Details +--------+ + + + + | Date | Type | Department | Care Team | Description | +--------+ + + + + | 06/01/ | Hospital | [facility] | Orly Villavicencio | Hepatic cirrhosis, | | 2018 | Encounter | [facility] [address] [facility] | [address] | unspecified hepatic | | | | [address] [place] | [address] [place] | cirrhosis type, | | | | [place], [place] | [place] [address] | unspecified whether | | | | [address] | [phone] | ascites present | | | | [phone] | | (HCC) | +--------+ + + [...]
--- OUTSIDE RECORDS SUMMARY | ~2020-05-13 | XMS | Encounter Summary ---
Demographics + + + | Address | [address] | | | [place] [address] | + + + | Home Phone [...] Team Providers + +------+ + | Care Division Roadmaster Name | Role | Phone | + [...] + + | 05/02/ | Telephone | [facility] | Orly Villavicencio | Results | | 2018 | | MEDICINE [address] | [address] | | | | | [place], | [address] | | | | | [place] [address] | [place] [address] | | | | | [phone] | [phone] | | | | | | | [...] mL/min/1.73m2 | [facility] | | | French | RATE,ESTIMATED | | MEDICAL | | | | mL/min/1.83n1Wnbs than | | CENTER - | | [...] [address] | [place] [address] | [phone] | | [facility] | | [address] | | | - LABORATORY | | | | + + + + + documented in this encounter Visit Diagnoses + + | Diagnosis | + + | Chronic hepatitis C without hepatic coma (HCC) - Primary | + + documented in this encounter"
--- OUTSIDE RECORDS SUMMARY | ~2020-05-13 | XMS | Encounter Summary ---
Demographics + + + | Address | [address] | | | [place] [address] | + + + | Home Phone [...] Team Providers + +------+ + | Care Shuttle Truck Driver Name | Role | Phone | [...] | 05/06/ | Refill | [facility] [place] [facility] | Orly Villavicencio | Medication Refill | | 2015 | | [facility] [address] | [address] | | | | | [address] [address], | [facility] | | | | | [place] [address] | [facility] [place] [address] | | | | | [phone] | [phone] | | | | | | | [...] 1:29 PM PDTPrescription for lorazepam sent to supervisor front to be faxed to Ethel zhou in [place]. elephone Encounter - Yusra Carter RN - [...] Patient's girlfriend, Lesia, can be reached at [phone] Pharmacy of choice: [facility] LORazepam (ATIVAN) 1 mg tablet 1 mg, [...]
--- OUTSIDE RECORDS SUMMARY | ~2020-05-13 | XMS | Encounter Summary ---
Demographics + + + | Address | [address] | | | [place] [address] | + + + | Home Phone | | + + + | Preferred Language | Unknown | + + + | Marital Status | Single | + + + | Tenriism Affiliation | Unknown | + + + [...] Team Providers + +------+ + | Care Spice Grinder Name | Role | Phone | + [...] + + | 12/06/ | Office | [facility] | Orly Villavicencio | Alcoholic hepatitis | | 2018 | Visit | MEDICINE [address] | [address] | without ascites | | | | [address] [address], | [address] | (Primary Dx); | | | | [place] [address] | [facility] [address] | Chronic hepatitis C | | | | [phone] | [phone] | without hepatic coma | | | [...] + documented in this encounter Progress Notes Olry Villavicencio MD - 12/06/2017 8:45 AM PDTFormatting [...] distress. Awake, alert, pleasant, and oriented. HEENT: [place] conjunctivae, anicteric sclerae. No neck vein engorgement. [...] at this time. Spent 25 minutes in [id number]-czbh time with the patient, with greater than [...] [address] | [place] | [phone] | | [facility] | | [address] | | | - LABORATORY | | [...] [address] | [place] Guzman | [phone] | | [facility] | | [address] | | | - LABORATORY | | [...] | 0.77 | 0.60 - 1.30 | [facility] | | | | | mg/dL | [facility] | | | | | | MEDICAL | | | | | | CENTER - | | | | | | LABORATORY | | + + + + + + | eGFR, | >60Comment: GLOMERULAR | >=60 | [facility] | | | non- | FILTRATION | mL/min/1.73m2 | [facility] | | | Sudanese | RATE,ESTIMATED | | MEDICAL | | | | mL/min/1.24f4Rolc than | | CENTER - | | [...] [address] | [place]AY[place] Guzman | [phone] | | [facility] | | [address] | | | - LABORATORY | | [...] [address] | [place] Guzman | [phone] | | [facility] | | [address] | | | - LABORATORY | | [...]
--- OUTSIDE RECORDS SUMMARY | ~2020-05-13 | XMS | Encounter Summary ---
Demographics + + + | Address | [address] | | | [place] [address] | + + + | Home Phone [...] Team Providers + +------+ + | Care Chair Frame Builder Name | Role | Phone | + [...] + + | 12/27/ | Telephone | [facility] | Orly Villavicencio | Follow-up | | 2018 | | MEDICINE [address] | [address] | | | | | [place] [address], | [address] [place] | | | | | [place] [address] | [place] [address] | | | | | [phone] | [phone] | | | | | | | [...] a follow up. This routed to the assistant front office manager. elephone Encounter - Betty Rivers - 12/27/2017 [...]
--- OUTSIDE RECORDS SUMMARY | ~2020-05-13 | XMS | Encounter Summary ---
Demographics + + + | Address | [address] | | | [place] [address] | + + + | Home Phone [...] Team Providers + +------+ + | Care Lubrication Supervisor Name | Role | Phone | [...] | 04/16/ | Refill | [facility] [place] [facility] | Orly Villavicencio | Medication Refill | | 2019 | | [address] | [address] | | | | | [place], | [address] [facility] | | | | | [place] [address] | [facility] [place] [address] | | | | | [phone] | [phone] | | | | | | | [...] Unknown Quantity remainin Pharmacy: [facility] in [place] Date of Last Refill: 05/02/18 Date of Last Visit: 06/01/18 Date of Next Visit: 04/24/19 documented in this encount er Plan of Treatment Not on filedocumented as of this encounter Visit Diagnoses Not on filedocumented in this encounter"
--- OUTSIDE RECORDS SUMMARY | ~2020-05-13 | XMS | Encounter Summary ---
Demographics + + + | Address | [address] | | | [place] [address] | + + + | Home Phone [...] Team Providers + +------+ + | Care Bacon Slicer Name | Role | Phone | + [...] + + | 06/19/ | Telephone | [facility] | Orly Villavicencio | Medication Orders; | | 2018 | | [facility] [address] | [address] | Left Without Being | | | | [place], | [address] | Seen (Crisis | | | | [place] [address] | [place] [address] | Response Team) | | | | [phone] | [phone] | | | | | | | [...] Tuesday. Lidia agrees to date and time. Liida asks we call her for appointment reminders. [...] earlier message lidia wanted this sent to [facility]. Please resend to [facility]. I cancelled the nortriptyline + Lorazepam and spironolactone and Thiamine at [facility], s poke to pharmacist. She says to resend to [facility]. Pending Dr Villavicencio review and signature. elephone [...] did lab, and did not wait for RESORT HOUSEKEEPER to come. Lidia sa id she had an appointment she needed to get to. She says "he has decided to quit drinking o n his own". [facility] She says she called this p [...]
--- OUTSIDE RECORDS SUMMARY | ~2020-05-13 | XMS | Encounter Summary ---
Demographics + + + | Address | [address] | | | [place] [address] | + + + | Home Phone [...] Team Providers + +------+ + | Care Accountant Supervisor Name | Role | Phone | [...] + + | 07/17/ | Telephone | [facility] | [facility] Referral (Follow up) | | 2019 | | GASTROENTEROLOGY | [address] | (GI) | | | | [address] [place] | [address] | | | | | [address] [place] | [place] | | | | | [address] | [phone] | | | | | [phone] | | | +--------+ + + + [...] 07/27/2019 12:28 PM PSTCalling girlfriend Lesia @ [phone]. Left message for Lesia to please call back. elephone Encounter - Orly Villavicencio MD - 07/25/2019 12:23 PM PSTPlease let Lesia know of this, Natalia. Keep appt in August. If they miss that, he cannot see a GI specialist locally and [facility] Thanks. elephone En counter - Martina [...]
--- OUTSIDE RECORDS SUMMARY | ~2020-05-13 | XMS | Encounter Summary ---
Demographics + + + | Address | [address] | | | [place] [address] | + + + | Home Phone [...] | Author | [facility] | | | and [place] | + + + | Organization | [facility] | | | and [...] Team Providers + +------+ + | Care Plane Captain Name | Role | Phone | + [...] + + | 03/23/ | Telephone | [facility] | Orly Villavicencio | Medication Prior | | 2015 | | [address] | [address] | Authorization | | | | [place], | Arna[address] [facility] | ([employer] | | | | [place] [address] | [place] [address] | lotion) | | | | [phone] | [phone] | | | | | | | [...] PDTReceived prior authorization request : Insurance name: [facility] Insurance phone: Medication and Strength: Triamcinolone Lotion [...]
--- OUTSIDE RECORDS SUMMARY | ~2020-05-13 | XMS | Encounter Summary ---
Demographics + + + | Address | [address] | | | [place] [address] | + + + | Home Phone [...] Team Providers + +------+ + | Care Fur Blowing Machine Operator Name | Role | Phone [...] + | 07/03/ | Telephone | [facility] | Orly Villavicencio | Results | | 2019 | | MEDICINE [address] | [address] | | | | | [place], | [address] | | | | | [place] [address] | [place] [address] | | | | | [phone] | [phone] | | | | | | | [...]
--- OUTSIDE RECORDS SUMMARY | ~2020-05-13 | XMS | Encounter Summary ---
Demographics + + + | Address | [address] | | | [place] [address] | + + + | Home Phone [...] Team Providers + +------+ + | Care Jig Box Operator Name | Role | Phone | [...] | | | | hepatic coma | [address] | [address] | | | | | (HCC) | Phone: | Phone: | | | | | | [phone] | [phone] | | | | | | Fax: | Fax: | | | | | | [phone] | [phone] | +--------+ + + + + + Reason for Visit + + + | Reason | Comments | + + + | Leg Pain | bilateral below knee leg pain x3 months | + + + Encounter Details +--------+---------+ + + + | Date | Type | Department | Care Team | Description | +--------+---------+ + + + | 03/22/ | Office | [facility] | Orly Villavicencio | Bilateral leg pain | | 2016 | Visit | MEDICINE [address] | MD Shimon [address] | (Primary Dx); | | | | [place] [facility], | [facility] | Elevated LFTs; | | | | [place] [address] | [place] [address] | Alcoholism (HCC); | | | | [phone] | [phone] | Chronic hepatitis C | | | [...] he is scheduled to serve time in longterm next week for 30 d ays. Has [...] in pain or any respiratory distress. HEENT: [place] conjunctivae, anicteric sclerae. No neck vein engorgement. [...] order | | | | | | [id number] to order | | | | | [...] | | | | may also contact Phase III Development | | | | | | Client Services | | | | | | foradditional | | | | | | information.Testing | | | | | | Performed: [facility], [address] | | | | | | [address], [place] | | | | | | [address] | | | | + + + [...] [address] | [place] [address] | [phone] | + + + + + CK [...] + | [facility] | [address] | [place] | [phone] | | [facility] | | [address] | | | - LABORATORY | | [...] [address] | [place] | [phone] | | [facility] | | [address] | | | - LABORATORY | | [...] [address] | [place] | [phone] | | [facility] | | [address] | | | - LABORATORY | | [...] [address] | [place] | [phone] | | [facility] | | [address] | | | - LABORATORY | | [...] ST. | [address] | [place], [place] | [phone] | | [facility] | | [address] | | | - LABORATORY | | [...] [address] | [place] | [phone] | | [facility] | | [address] | | | - LABORATORY | | [...] [address] | [place] | [phone] | | [facility] | | [address] | | | - LABORATORY | | [...] | | | | mg/dL | [facility] | | | | | | MEDICAL | | | | | | CENTER - | | | | | | LABORATORY | | + + + + + + | eGFR, | >60Comment: GLOMERULAR | >=60 | [facility] | | | non- | FILTRATION | mL/min/1.73m2 | [facility] | | | [place]uvian | RATE,ESTIMATED | | MEDICAL | | | | mL/min/1.25u8Jtgo than | | CENTER - | | [...] | 8.9 | 8.3 - 10.5 | [facility] | | | | | mg/dL | [facility] | | | | | [...] + | [facility] | [address] | [place] | [phone] | | [facility] | | [address] | | | - LABORATORY | | [...] ST. | [address] | [place], [place] | [phone] | | [facility] | | [address] | | | - LABORATORY | | [...]
--- OUTSIDE RECORDS SUMMARY | ~2020-05-13 | XMS | Encounter Summary ---
Demographics + + + | Address | [address] | | | [place] [address] | + + + | Home Phone [...] Team Providers + +------+ + | Care Aperture Mask Etcher Name | Role | Phone | [...] + + | 10/13/ | Telephone | [facility] | Orly Villavicencio | Results | | 2018 | | MEDICINE [address] | MD [address] | | | | | [place], | [place] | | | | | [place] [address] | [place] [address] | | | | | [phone] | [phone] | | | | | | | [...] er returned call, please try again at [phone]. Electronically signed by Sarah funez 10/25/2017 3:41 [...]
--- OUTSIDE RECORDS SUMMARY | ~2020-05-13 | XMS | Encounter Summary ---
Demographics + + + | Address | [address] | | | [place] [address] | + + + | Home Phone [...] Team Providers + +------+ + | Care Machine Shop Inspector Name | Role | Phone | [...] + + | 06/25/ | Telephone | [facility] | Orly Villavicencio | Appointment | | 2019 | | [facility] [address] | MD [address] | (rescheduled) | | | | [place], | [facility] | | | | | [place] [address] | [place] [address] | | | | | [phone] | | | | | | | [...]
--- OUTSIDE RECORDS SUMMARY | ~2020-05-13 | XMS | Encounter Summary ---
Demographics + + + | Address | [address] | | | [place] [address] | + + + | Home Phone | | + + + | Preferred Language | Unknown | + + + | Marital Status | Single | + + + | Hoahaoism Affiliation | Unknown | + + + [...] Team Providers + +------+ + | Care Ad Writer Name | Role | Phone | [...] + + | 09/24/ | Emergency | [facility] | Filiberto Yan, | Chest wall | | 2018 - | | [facility] | MD [address] | contusion, left, | | | | CENTER [address] | [place] | initial encounter | | 09/25/ | | [place] | [id number] | (Primary Dx) | | 2018 | | [address] | | | | | | [phone] | | | +--------+ + + + [...] sent through Care Everywhere.Chest Wall Cont usion (Angolan)documented in this encounter Medications at Time of [...] on file Social History Narrative Born in [place]. Lives with girlfriend lidia. 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 Neck-supple, [...] by me Rhythm: normal sinus Rate: normal [place]: normal Ectopy: none Conduction: normal ST Segments: [...] Internal Medicine Why: As needed Contact information: [address] [place] [id number] Discharge Medication List as of 09/24/2017 23:57 [...] | | | | TONIE BENOIT MD ([id number]) | | | | | | on [...]
--- OUTSIDE RECORDS SUMMARY | ~2020-05-13 | XMS | Encounter Summary ---
Demographics + + + | Address | [address] | | | [place] [address] | + + + | Home Phone [...] + +------+ + | Care Human Resources Clerk Name | Role | Phone | [...] | 08/08/ | Refill | [facility] | Orly Villavicencio | Medication Refill | | 2019 | | MEDICINE [address] | MD [address] | | | | | [place], | [place] | | | | | [place] [address] | [place] [address] | | | | | [phone] | | | | | | | [...] encounter Miscellaneous Notes Telephone Encounter - Orly Villavicecnio MD - 08/08/2019 11:22 AM PSTNo further [...]
--- OUTSIDE RECORDS SUMMARY | ~2020-05-13 | XMS | Encounter Summary ---
Demographics + + + | Address | [address] | | | [place] [address] | + + + | Home Phone [...] Team Providers + +------+ + | Care Oncology Pharmacist Name | Role | Phone | + [...] + + | 05/02/ | Office | [facility] | Orly Villavicencio | Alcoholism (HCC) | | 2018 | Visit | MEDICINE [address] | MD [address] | (Primary Dx); | | | | [facility] [place] [facility], | [address] | Chronic hepatitis [place] | | | | [place] [address] | [place] [address] | without hepatic coma | | | | [phone] | [phone] | (HCC); Depression, | | | | [...] in pain or any respiratory distress. HEENT: [place] conjunctivae, yellowish sclerae. No neck vein [...] and medication adjustment. Spent 25 minutes in mjed-gy-ayex time with the patient, with greater than [...] mildly | | | enlarged. Splenomegaly likely publications sales representative of portal venous | | [...] enlarged. | | | | Splenomegaly likely publications sales representative of portal venous hypertension. | [...] [address] | [place] | [phone] | | [facility] | | [address] | | | - LABORATORY | | [...] + + | Performing | Address | City/State/[facility] | Phone Number | | Organization | | | | + + + + + | [facility] | [address] | [place] | [phone] | | [facility] | | [address] | | | - LABORATORY | | [...] (L) | 7 - 18 mg/dL | [facility] | | | | | | [facility] | | | | | | MEDICAL | | | | | | CENTER - | | | | | | LABORATORY | | + + + + + + | Creatinine | 0.69 | 0.60 - 1.30 | [facility] | | | | | mg/dL | [facility] | | | | | | MEDICAL | | | | | | CENTER - | | | | | | LABORATORY | | + + + + + + | eGFR, | >60Comment: GLOMERULAR | >=60 | [facility] | | | non- | FILTRATION | mL/min/1.73m2 | [facility] | | | [place] | RATE,ESTIMATED | | MEDICAL | | | | mL/min/1.83p5Ivuq than | | CENTER - | | [...] | | Protein | | | [facility] | | | | | | MEDICAL [...] ST. | [address] | [place] | [phone] | | [facility] | | [address] | | | - LABORATORY | | [...] | | | | | | [facility] | | | | | | [...] [address] | [place] | [phone] | | [facility] | | [address] | | | - LABORATORY | | [...]
--- OUTSIDE RECORDS SUMMARY | ~2020-05-13 | XMS | Encounter Summary ---
Demographics + + + | Address | [address] | | | [place] [address] | + + + | Home Phone [...] Providers + +------+ + | Care Supervisor Rolling Room Name | Role | Phone | + [...] + | 03/30/ | Telephone | [facility] | Orly Villavicencio | Other | | 2016 | | MEDICINE [address] | MD [address] | | | | | [place], | [place] | | | | | [place] [address] | [place] [address] | | | | | [phone] | | | | | | | [...] not want any information to go to [facility]. She says, "patient's x- wo rks there and reads his information". FYI to Dr Villavicencio. Lesia says she will notify other providers not to send information to [facility], as well documented in this encounter Plan of Treatment Not on filedocumented as of this encounter Visit Diagnoses Not on filedocumented in this encounter
--- OUTSIDE RECORDS SUMMARY | ~2020-05-13 | XMS | Encounter Summary ---
Demographics + + + | Address | [address] | | | [place] [address] | + + + | Home Phone [...] Team Providers + +------+ + | Care Java Development Manager Name | Role | Phone [...] | 12/01/ | Refill | [facility] [place] [facility] | Orly Villavicencio | Medication Refill | | 2018 | | MEDICINE [address] | MD [address] | | | | | [place], | [place] | | | | | [place] [address] | [place] [address] | | | | | [phone] | [phone] | | | | | | | [...] a call once prescription is ready to pick pack worker.Electronica lly signed by Cuac Cardenas at 12/01/2017 4:27 PM PDTTelephone Encounter [...]
--- OUTSIDE RECORDS SUMMARY | ~2020-05-13 | XMS | Encounter Summary ---
Demographics + + + | Address | [address] | | | [place] [address] | + + + | Home Phone [...] Author + + + | Author | [facility] | | | and [place] | + + + | Organization | [facility] | | [...] Team Providers + +------+ + | Care Nursery Laborer Name | Role | Phone | + [...] + + | 11/22/ | Telephone | [facility] | Orly Villavicencio | Appointment | | 2020 | | MEDICINE [address] | MD [address] | | | | | [place], | [place] | | | | | [place] [address] | [place] [address] | | | | | [phone] | [phone] | | | | | | | [...]
--- OUTSIDE RECORDS SUMMARY | ~2020-05-13 | XMS | Encounter Summary ---
Demographics + + + | Address | [address] | | | [place] [address] | + + + | Home Phone | | + + + | Preferred Language | Unknown | + + + | Marital Status | Single | + + + | Sikhism Affiliation | NON | + + + | Race | or | + + + | Ethnic Group | Not or | + + + Author + + + | Author | [facility] | + + + | Organization | [...] Team Providers + +------+ + | Care Cornetist Name | Role | Phone | + [...] [address] | | | | | [place], [place] | [place], [place] | | | | | [address] | [address] | | | | | [phone] | [phone] | | | | | | | [...] | + + + + + | [facility] | [address] [facility] | [place] [address] | | | PATHOLOGY | [address] | | | + + + + + | [facility] | [facility] | [place] [address] | | | PATHOLOGY | [address] [...] DEPARTMENT OF | [address] | [place], [place] [address] | | | PATHOLOGY | [address] | | | + + + + + | [facility] | [address] | [place] [address] | | | PATHOLOGY | [address] | | | + + + + + documented in this encounter Visit Diagnoses Not on filedocumented in this encounter"
--- OUTSIDE RECORDS SUMMARY | ~2020-05-13 | XMS | Encounter Summary ---
Demographics + + + | Address | [address] | | | [place] [address] | + + + | Home Phone [...] Team Providers + +------+ + | Care Documentation Liaison Name | Role | Phone | + [...] + | 02/03/ | Refill | [facility] | Orly Villavicencio | Medication Refill | | 2018 | | MEDICINE [address] | MD [address] | | | | | [place], | [place] | | | | | [place] [address] | [place] [address] | | | | | [phone] | | | | | | | [...]
[~2020-05-13 17:22] MED LIST changes: +ADVIL200 MG PO; +ALDACTONE50 MG PO; +DOXYCYCLINE HY100 MG PO; +ESCITALOPRAM OX10 MG PO; +NICOTINE PATCH1 EAC1 TD
--- OUTSIDE RECORDS SUMMARY | 2020-05-13 17:24 | XMS ---
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 E.Kim VISIT COUNT (12 MO.) 1 [facility] [place] [address] [place] [address] TOTAL 4 NOTE: Visits indicate total known visits. ED/UCC VISIT TRACKING (12 MO.) 05/13/2020 17:23 [facility] [place] TYPE: Emergency COMPLAINT: - R SIDE ABDOMINAL PAIN 04/16/2020 11:42 [facility] [place] TYPE: Emergency COMPLAINT: - L LEG SWOLLEN 10/23/2019 17:23 [facility] [place] TYPE: Emergency COMPLAINT: - FLU SYMPTOMS 06/19/2019 10:[address] [facility] [place] TYPE: Emergency DIAGNOSES: - Detox - Alcohol abuse, uncomplicated - Major depressive disorder, single episode, unspecified - Detox Evaluation INPATIENT VISIT TRACKING (12 MO.) 04/16/2020 16:56 [facility] TYPE: Medical Surgical COMPLAINT: - SEPSIS CELLULITIS DIAGNOSES: - Alcoholic hepatitis without ascites - Other care home (current) drug therapy - Hypo-osmolality and hyponatremia - Nicotine dependence, cigarettes, uncomplicated - Cellulitis of left lower limb - Alcoholic hepatitis without ascites - Contact with and (suspected) exposure to other viral communic - Alcoholic cirrhosis of liver without ascites - Contact with and (suspected) exposure to other viral communic - 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 Alcoholic hepatitis without ascites 10/23/2019 20:[address] 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
[2020-05-13] MEDS ORDERED: LACTULOSE10 GM/15 M PO (18:08)
[2020-05-13] MEDS ORDERED: SPIRONOLACTONE50 MG PO (18:08)
[2020-05-13] MEDS ORDERED: BACTRIM DS TAB1 EACH PO (20:20)
== END 2020-05-13 21:15 | disposition home or self-care (01) ==
LOC: ED 17:22
DX: K80.20 Calculus of gallbladder without cholecystitis without obstruction (principal); F10.129 Alcohol abuse with intoxication, unspecified; Y90.8 Blood alcohol level of 240 mg/100 ml or more; L03.116 Cellulitis of left lower limb; R19.5 Other fecal abnormalities; F17.200 Nicotine dependence, unspecified, uncomplicated; Z79.899 Other long term (current) drug therapy
CPT/HCPCS: 51798; 74177; 80053; 81001; 83605; 83690; 83735; 85025; 99285-25; G0480; Q9967

== ENCOUNTER 2020-07-12 09:26 | Inpatient (IN) | payer OTHER ==
[~2020-07-12] VITALS: Ht 180.3 cm; Wt 128.4 kg
[~2020-07-12 09:26] MED LIST changes: +BACTRIM DS TAB1 EACH PO; +LACTULOSE10 GM/15 M PO; +SPIRONOLACTONE50 MG PO
--- OUTSIDE RECORDS SUMMARY | 2020-07-12 09:30 | XMS ---
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 Care History Medical/Surgical 05/14/2020 [facility] IS UNABLE TO CONTACT PATIENT- PATIENT WOULD BENEFIT FROM [facility]. - \T\middot;\T\nbsp; PATIENT WOULD BENEFIT FROM [facility]-PLEASE DISCUSS \T\middot;\T\nbsp; PLEASE CONTACT [facility]- IF PATIENT ACCEPTS SERVICES- [phone] \T\middot;\T\nbsp; [facility] CAN PROVIDE PATIENT WITH ARNP AND HELP WITH COMMUNITY RESOURCES E.D. VISIT COUNT (12 MO.) [facility] TOTAL 4 NOTE: Visits indicate total known visits. ED/UCC VISIT TRACKING (12 MO.) 07/12/2020 09:27 [facility] [place] TYPE: Emergency COMPLAINT: - DIZZY, L ARM PAIN, R EYE INJURY, BACK PAIN 05/13/2020 17:23 [facility] [place] TYPE: Emergency COMPLAINT: - R SIDE ABDOMINAL PAIN DIAGNOSES: - Other fecal abnormalities - Alcohol abuse with intoxication, unspecified - Calculus of gallbladder without cholecystitis without obstruction - Blood alcohol level of 240 mg/100 ml or more - Unspecified abdominal pain - Nicotine dependence, unspecified, uncomplicated - Other custodial (current) drug therapy - Cellulitis of left lower limb 04/16/2020 11:42 [facility] [place] TYPE: Emergency COMPLAINT: - L LEG SWOLLEN 10/23/2019 17:23 [facility] [place] TYPE: Emergency COMPLAINT: - FLU SYMPTOMS INPATIENT VISIT TRACKING (12 MO.) 04/16/2020 16:56 [facility] [place] TYPE: Medical Surgical COMPLAINT: - SEPSIS CELLULITIS DIAGNOSES: - Alcoholic hepatitis without ascites - Other custodial (current) drug therapy - Hypo-osmolality and hyponatremia - Nicotine dependence, cigarettes, uncomplicated - Cellulitis of left lower limb - Alcoholic hepatitis without ascites - Contact with and (suspected) exposure to other viral communicable diseases - Alcoholic cirrhosis of liver without ascites - Contact with and (suspected) exposure to other viral communicable diseases - Other manager long term care (current) drug therapy - Hypo-osmolality and hyponatremia [...] Hypo-osmolality and hyponatremia 9. Body mass index [BMI]40.0-44.9, adult 10. Acidosis 11. Rhabdomyolysis 12. Hyperosmolality and hypernatremia 13. Moderate protein-calorie malnutrition 14. Nicotine dependence, cigarettes, uncomplicated 15. Alcohol dependence, uncomplicated 16. Nonspecific elevation of levels of transaminase and lactic acid dehydrogenase [LDH] 17. Morbid (severe) obesity due to excess calories 18. Thrombocytopenia, unspecified 19. Unspecified atrial fibrillation 20. Other staphylococcus as the cause of diseases classified elsewhere 21. Streptococcus pneumoniae as the cause of diseases classified elsewhere 22. Dysphagia, unspecified 23. Alcoholic hepatitis without ascites 10/23/2019 20:33 [facility] TYPE: Critical Care COMPLAINT: - PNEUMONIA DIAGNOSES: - Sepsis, unspecified organism - Nicotine dependence, cigarettes, uncomplicated - Alcoholic hepatitis without ascites - Hypo-osmolality and hyponatremia - Hallucinations, unspecified - Thrombocytopenia, unspecified - Alcohol abuse, uncomplicated - Severe sepsis without septic shock - Other custodial (current) drug therapy - Pneumonia due to Streptococcus pneumoniae - Acidosis - Acute respiratory failure with hypoxia [email or web address]
[2020-07-12] MEDS ORDERED: SPIRONOLACTONE50 MG PO (12:21)
--- NOTE | 2020-07-12 17:06 | NUR ---
64 year old male patient ADMITTED TO ROOM [address]IA STRET[address]ER UNDER DR[address] VENCES WITH OF POSSIBLE ETOH WITHDRAWAL,CELLULITIS L ARM. UNSURE WHEN PATIENT HAD LAST BEER, IT IS NOTED, PATIENT DRINKS 30+ BEER Q DAY. 1 L NS INFUSING (BOLUS) DID RECIEVE 2 L NS IN ED. LEFT ARM IS WITH REDNESS, SWELLING, PAIN. LEFT ARM WARM AND IMFLAMED ON ADMIT. DMISSION PROCESS STARTED.
--- NOTE | 2020-07-12 18:30 | NUR ---
VERY DIAPHORTIC, HAVING DIFFICULTY FOLLOWING COMMANDS. SLEEP APNEA NOTED. ATIVAN GIVEN FOR CWIA OF 11.
--- NOTE | 2020-07-12 18:50 | NUR ---
DR. VENCES UP DATED REGARDING, SLEEP APNEA, CWIA LEVEL, O2 SATS. VBG,CPAP, AND LOWER DOSE OF ATIVAN ORDERED.
--- NOTE | 2020-07-12 19:04 | NUR ---
DINNER HELD. LEFT ARM REMAINS ELEVATED. REPORT TO NEXT SHIFT. ON O2 AT 2 L NC.
--- NOTE | 2020-07-12 20:00 | NUR ---
PATIENT ASSESSMENT COMPLETED. PT. DROWSY, BUT ORIENTED. PT. HAS 2/10 PAIN LEFT ARM AND MOANS OCCASIONALLY. LUNGS DIM. BILAT. IN BASES. CIWA OF 7. PATIENT ASSISTED BY NURSE WITH VOIDING 10ML DRIBBLE. PT. HAD A PRODUCTIVE COUGH WITH CLEAR SPUTUM AND SUCTIONED HIMSELF. PT. LEFT RESTING IN BED WITH CURTAIN OPEN IN SIGHT OF NURSES STATION.
--- NOTE | 2020-07-12 22:10 | NUR ---
PATIENT REPORTS 9/10 PAIN IN LEFT ARM. STATED THAT HE NEEDED TO VOID, BUT COULD NOT.
--- NOTE | 2020-07-12 22:20 | NUR ---
PER RN I BLADDER SCANNED THE PT FOR 673 ML . INFORMED RN. PT NEEDS NOTHING AT THIS TIME.
--- NOTE | 2020-07-12 22:36 | NUR ---
DR. VENCES CALLED REGARDING PT. BLADDER SCAN AND URGENCY TO VOID AND PAIN.
--- NOTE | 2020-07-12 23:07 | NUR ---
PATIENT 16FR. WARD PLACED WITH UROJET. TOLERATED WELL. 750ML DARK YELLOW CLEAR URINE. VANCO STARTED. PT. RIGHT EYE WAS RED WITH THICK DISCHARGE. WARM WASHCLOTH APPLIED. PT. LEFT RESTING IN BED WITH CURTAIN OPEN.
--- NOTE | 2020-07-13 00:45 | NUR ---
PATIENT ASSESSMENT COMPLETED. WARD EMPTIED OF 95ML FRED CLEAR URINE. PT. STATES HE HAS SOME PAIN IN LT. ARM BUT IS TOLERABLE. CIWA OF 7. MILD TREMORS AND DIAPHORESIS. ORIENTED AND DROWSY. TEMP. 99.1 AND IV SITE WNL.
--- NOTE | 2020-07-13 01:11 | NUR ---
PATIENT GIVEN 0.5MG ATIVAN FOR CIWA OF 15.
--- NOTE | 2020-07-13 02:09 | NUR ---
PATIENT SLEEPING. WARD EMPTIED OF 60ML FRED CLEAR URINE.
--- NOTE | 2020-07-13 03:02 | NUR ---
PT IS SOMEWHAT RESTLESS. GIVEN 0.5MG ATIVAN IV.
--- NOTE | 2020-07-13 03:47 | NUR ---
PT OCC PICKING AT AIR, GIVEN 0.5MG ATIVAN IV.
--- NOTE | 2020-07-13 04:00 | NUR ---
PATIENT ASSESSMENT COMPLETED. ORIENTED TO SELF ONLY. TEMP. 100.7 AND 325 MG OF TYLENOL GIVEN. LUNGS DIM BILAT IN BASES. BEDDING AND CHUX UNDER ARMS SATURATED WITH YELLOW DRAINAGE AND CHANGED. PATIENT STATED HE WAS REALLY TIRED. LEFT RESTING IN BED WITH CURTAIN OPEN.
--- NOTE | 2020-07-13 06:23 | NUR ---
PATIENT SLEEPING IN BED. TEMP. 100.1. WARD EMPTIED OF 50ML FRED COLORED URINE. IV PUMP CLEARED OF 1218ML INFUSED.
--- NOTE | 2020-07-13 07:35 | NUR ---
PATIENT ATTEMPING TO GET OOB. REORIENTED, REPOSITIONED. PATIENT THEN MORE RELAXED. WARD CATH PATENT, IVF INFUSING.
--- NOTE | 2020-07-13 07:59 | NUR ---
PATIENT RESTING IN BED. BREAKFAST ORDERED. VITAL SIGNS DOCUMENTED. CALL LIGHT WITHIN REACH.
--- NOTE | 2020-07-13 08:00 | NUR ---
assessment done, WILL HOLD BREAKFAST AT THIS TIME PATIENT IS LETHARGIC, WILL FOLLOW FEW COMMANDS, THEN BACK TO SLEEP. WARD CATH PATENT WITH FRED URINE NOTED. IVF PATENT AT 75 ML/HR. O2 [address] LEFT ARM ELEVATED ON PILLOWS. SEROUS DRAINAGE NOTED.
--- NOTE | 2020-07-13 09:00 | NUR ---
TALKING OUT LOUD WHILE ASLEEP. NO ATIVAN NEEDED SO FAR THIS SHIFT.
--- NOTE | 2020-07-13 10:00 | NUR ---
MORE AWAKE. ROUTINE MEDICATIONS GIVEN. 20 GA IV SITE STARTED TO LOWER RIGHT ARM. HOB ELEVATED.
--- NOTE | 2020-07-13 10:30 | NUR ---
RESTING WITH HOB ELEVATED.
--- NOTE | 2020-07-13 11:30 | NUR ---
UP TO CHAIR WITH ASSIST. UNSTEADY ON FEET.
--- NOTE | 2020-07-13 12:00 | NUR ---
ASSESSMENT DONE. C/O OF MILD LEFT ARM PAIN. NO TREATMENT GIVEN. DR. VENCES HERE TO SEE PATIENT. ORDERS RECIEVED.
--- NOTE | 2020-07-13 12:40 | NUR ---
FED PATIENT 100% OF LUNCH. REMAINS IN CHAIR.
--- NOTE | 2020-07-13 14:09 | NUR ---
IVF TO OFF.
--- NOTE | 2020-07-13 14:50 | NUR ---
BACK TO BED WITH ASSIST. IS COOPERATIVE, LEFT ARM ELEVATED ON 3 PILLOWS. WARD CATH REMAINS PATENT. HAS OCC LOOSE COUGH.
--- NOTE | 2020-07-13 18:27 | NUR ---
Patient arrives from CCU in bed to room 120 on [facility] floor. Alert and oriented at this time. No signs of alchol withdrawal. Alert and oriented. Left arm hot, red and weeping but elevated on 3 pillows. Catheter remains in place, urine orange in color. Vital signs obtained. IV sites X2 to R arm with dressings and sites intact.
--- NOTE | 2020-07-13 19:37 | NUR ---
EVENING REPORT RECEIVED FROM DAY SHIFT RN. PT LYING IN BED ALERT AND RESPONDING APPROPRIATELY. WARD PATENT WITH ORANGE COLORED URINE. LUE ELEVATED ON PILLOWS. DENIES NEEDS AT THIS TIME. WHITE BOARD UPDATED. CALL LIGHT IN REACH.
--- NOTE | 2020-07-13 20:30 | NUR ---
PT CALLING OUT. IN TO ASSIST WITH 2PA TO BSC FOR BOWEL MOVEMENT. PT SHAKY AND UNSTEADY. STAFF ASSIST WITH TANYA CARE. BACK TO BED WITH 2PA AND FWW. KATHIA WELL. LUE ELEVATED ON PILLOWS. BED ALARM FOR SAFETY.
--- NOTE | 2020-07-13 23:12 | NUR ---
EVENING ASSESSMENT COMPLETE. SCHEDULED MEDS ADMINISTERED PER EMAR. PT ORIENTED X 3. DENIES PAIN OR NAUSEA. NO VISIBLE SYMPTOMS OF WITHDRAWAL NOTED. WARD CARE DONE BY SEAT TRIMMER. PURULENT DRAINAGE NOTED AT URETHRAL OPENING. WARD PATENT DRAINING ORANGE URINE. IV ABX INFUSING PER ORDER. LUE ELEVATED ON PILLOWS. SCD'S IN PLACE. PT ABLE TO REPOSITION SELF IN BED. DENIES FURTHER NEEDS AT THIS TIME. CALL LIGHT IN REACH.
--- NOTE | 2020-07-14 00:35 | NUR ---
BED ALARM SOUNDING. PT STATES, "I'M GOING OUT TO THE PARKING LOT TO HAVE A SMOKE". REORIENTED PT TO LOCATION AND NO SMOKING POLICY. PT EASILY REDIRECTED. PRN NICOTINE LOZENGE PROVIDED. FRESH WATER PROVIDED. ASSISTED PT TO REPOSITION IN BED. BED ALARM FOR SAFETY.
--- NOTE | 2020-07-14 03:17 | NUR ---
PT NOTED TO BE HALLUCINATING, RESTLESS, CLAMMY, AND DISORIENTED TO DATE, TIME, AND PLACE. DR. VENCES NOTIFIED CIWA IS 10+. NO NEW ORDERS RECEIVED. PT PLEASANT AND COOPERATIVE. BED ALARM FOR SAFETY. IN VIEW OF NURSES STATION.
--- NOTE | 2020-07-14 05:28 | NUR ---
VS AND I&O COMPLETE. CLEAN LINENS PROVIDED DUE TO DRAINAGE FROM LEFT ARM. ASSISTED PT TO REPOSITION IN BED. LUE ELEVATED ON PILLOWS. PT REMAINS CONFUSED AND REPORTS SEEING CHILDREN IN HIS ROOM. ATTEMPTED TO REORIENT PT. PT COOPERATIVE AND PLEASANT. SCD'S REMOVED AT THIS TIME THEY WERE BEGINNING TO AGITATE PT. BED ALARM FOR SAFETY. CALL LIGHT IN REACH.
--- NOTE | 2020-07-14 07:50 | NUR ---
SHIFT REPORT FROM NURSE KNOX. PT RESTING IN BED, EYES CLOSED. PT RT ARM REACHING FOR IMAGINARY OBJECTS. PT IN VIEW OF NURSES STATION
--- NOTE | 2020-07-14 08:45 | NUR ---
ASSESSMENT COMPLETE. PT DISORIENTED TO PLACE AND TIME, ALTHOUGH CALM. PT COMPLAINS OF 7/10 PAIN IN LEFT ARM. PRN OXYCODONE ADMINISTERED ALONG WITH PRN NICOTINE LOZENGE PT IS REQUESTING CIGARETTES. WARD CARE PERFORMED. URINE OUTPUT GOOD; URINE ORANGE IN COLOR. VSS. PT REFUSES BREAKFAST. BED ALARM ON
--- NOTE | 2020-07-14 10:26 | NUR ---
PT TRYING TO GET OUT OF BED. PT WANTS TO "GET UP AND GO TALK TO MY SISTER". PT THOUGHT NURSES WERE HIS SISTER AND MOTHER. PT WAS EASILY REDIRECTED AND TOOK INSTRUCTION TO REPOSITION BACK IN TO BED. PT IS DIAPHORETIC, HAS SLIGHT TREMOR IN HANDS. BED ALARM BACK ON
--- NOTE | 2020-07-14 11:58 | NUR ---
Vancomycin trough came back low at 8.2. Dose changed to 2 g iv q 8 hours
--- NOTE | 2020-07-14 13:44 | NUR ---
CHECKED IN ON PT. PT COMPLAINS OF PAIN IN LEFT ARM 02/28. PRN OXYCODONE AND TYLENOL ADMINISTERED. PT CONFUSED, FORGETFUL BUT EASILY REORIENTED, STAYS IN CHAIR. DR VENCES WAS JUST IN TO SEE PT.
--- NOTE | 2020-07-14 14:03 | NUR ---
PT ASLEEP, DID NOT DISTURB, WILL FOLLOW
--- NOTE | 2020-07-14 15:58 | NUR ---
SPOKE WITH PATIENT IN ROOM. PATIENT WAS UP IN CHAIR. PATIENT IS VISIBLY SHAKEY WITH HANDS. PATIENT ANSWERS QUESTIONS IN SHORT WORDS. DOESN'T EXPAND MUCH. LIVES WITH MOTHER, OTHER FAMILY COMES AND GOES. DOES NOT DRIVE. [place] TO TOWN OR ASKS FAMILY FOR RIDES. USES [facility] FOR PCP AND MEDS ALTHOUGH HE STATES "THEY AREN'T VERY GOOD". ASKED IF HE WANTS DIFFERENT PCP, DOES NOT THINK SO. DOESN'T ELABORATE ON REMARK. PATIENT DRINKS ALCOHOL DAILY. DOES NOT THINK HE WANTS ANY INFO ON DETOX OR REHAB. STATES HE "DOESN'T PAY" FOR MEDS. DENIES FOOD INSECURITY OR PROBLEMS WITH UTILITIES. PATIENT DOES NOT WORK AND DENIES USING ANY DME TO AMBULATE. PATIENT ASKS "ARE YOU DONE WITH ALL YOUR QUESTIONS YET". PATIENT PLANS ON GOING BACK TO HOME FOR DISCHARGE AND FEELS SAFE TO DO SO. HAS NO QUESTIONS AT THIS TIME. CM WILL FOLLOW NEEDED.
--- NOTE | 2020-07-14 17:40 | NUR ---
BED ALARM WENT OFF, PATIENT TRYING TO GET OUT OF BED TO LEAVE. REDIRECTED PATIENT, WENT IN TO BATHROOM TO VOID, THEN TO CHAIR FOR DINNER. PATIENT ATE A FEW BITES OF DINNER THEN TRIED TO GET UP AGAIN WITHOUT ASSISTANTS, CHAIR ALARM WENT OFF. THIS CVNA IN ROOM AGAIN TO REDIRECT PATIENT. PATIENT NOW BACK TO BED. BED ALARM ON. CALL LIGHT IN REACH. NO FURTHER NEEDS AT THIS TIME.,
--- NOTE | 2020-07-14 18:36 | NUR ---
CHECKED ON PT. PT PEACEFUL IN BED. QUICKLY REORIENTED TO PLACE. ASSESSMENT COMPLETE. NO FURTHER NEEDS AT THIS TIME.
--- NOTE | 2020-07-14 19:57 | NUR ---
REPORT RECEIVED FROM DAY SHIFT RN. PT LYING IN BED ALERT AND RESPONDING APPROPRIATELY. ASSISTED TO USE URINAL TO VOID CONCENTRATED URINE. PT DENIES NEEDS AT THIS TIME. WHITE BOARD UPDATED. CALL LIGHT IN REACH. BED ALARM FOR SAFETY.
--- NOTE | 2020-07-14 21:00 | NUR ---
BED ALARM SOUNDING. PT STATES "I NEED TO GET MY WALLET". ATTEMPTED TO REORIENT PT. PT IMPULSIVE AND NOT FOLLOWING DIRECTION. GRANITE SETTER AND RN MUSIC EDUCATOR IN ROOM TO ASSIST. PT UP TO BSC WITH 2PA AND FWW. LINENS AND GOWN CHANGED DUE TO SEROSANG DRAINAGE FROM LEFT ARM. PT BACK TO BED, KATHIA FAIR. DYSPNEA ON EXERTION. PT WITH VISUAL HALLUCINATIONS. LUE WITH SEROSANG DRAINAGE. PT CONTINUES TO PICK AND SCRATCH AT ARM. OPEN AREAS NOTED. LUE ELEVATED ON TWO PILLOWS AT THIS TIME. ASSESSMENT COMPLETE. SCHEDULED MEDS ADMINISTERED PER EMAR. PRN ADMINISTERED FOR 7/10 LEFT ARM PAIN. PT ORIENTED TO SELF ONLY. BED ALARM FOR SAFETY.
--- NOTE | 2020-07-14 22:05 | NUR ---
BED ALARM SOUNDING. PT CLIMBING OUT OF BED. THIS RN AND SMOKEHOUSE OPERATOR IN TO ASSIST TO BR. PATIENT IMPULSIVE. NOT FOLLOWING DIRECTION AND BEING UNSAFE. 2PA WITH FWW TO BR. GAIT UNSTEADY. PT ABLE TO VOID AND HAVE SMALL LOOSE BM. BACK TO BED. PT AGITATED AND CURSING. BED ALARM PLACED. DISCUSSED WITH RN LOZENGE MAKER NEED FOR 1:1 FOR PATIENT SAFETY.
--- NOTE | 2020-07-14 23:15 | NUR ---
PT IN BED REACHING OUT AND CALLING NAMES OF DIFFERENT PEOPLE. EASILY REDIRECTED WHEN IM TALKING TO HIM. PT IS VERY FIGITY. WARM BLANKET GIVEN.
--- NOTE | 2020-07-14 23:45 | NUR ---
PT STATES HE NEEDS TO POOP. WITH THE HELP OF GEO WANG WE HELPED PT TO THE BSC AND BACK TO BED WITH HIS FWW. PT URINATED ON THE FLOOR. WE CLEANED UP WITH APPROPRIATE FISH AND WILDLIFE WARDEN WIPES. GEO WANG GOT PT SOME FRESH ICE WATER. I CONTINUE TO SIT WITH PT. PT KEEPS ASKING FOR "SIGS AND A SIX PACK"
--- NOTE | 2020-07-15 00:15 | NUR ---
WAS WITH PATIENT TAKING OVER FLOAT RISK TECH NOVEMBER TO TAKE A BREAK.
--- NOTE | 2020-07-15 00:30 | NUR ---
PT CONTINUES TO YELL OUT DIFFERENT NAMES OF PEOPLE. PT STATES HE NEEDS TO PEE . I HELPED HIM WITH HIS URINAL. CONTINUES TO LOOK FOR HIS BEER AND CIGARETS. PT GETTING IRRITATED. I WAS ABLE TO TALK WITH HIM AND CALM HIM DOWN A BIT. CONTINUES TO BECOME MORE IRRITABLE.
--- NOTE | 2020-07-15 01:00 | NUR ---
I WAS MAKING A NOTE IN THE COMPUTER , PT RIPS HIS IV OUT OF HIS ARM. I INFORMED HIS RN LEE.
--- NOTE | 2020-07-15 01:10 | NUR ---
KNITTER HELPER REPORTS PT PULLED IV. IV DC'D WNL. TIP INTACT. PT STATES "I NEED TO GET OUT OF HERE". ATTEMPT TO REORIENT PT UNSUCCESSFUL. PT REMAINS 1:1 WITH KNITTER HELPER. BED ALARM FOR SAFETY.
--- NOTE | 2020-07-15 01:30 | NUR ---
PT STATES HE NEEDS TO PEE AGAIN. I HELPED HIM WITH HIS URINAL. AGAIN ASKING FOR HIS BEER. I EXPLAINED TO HIM THAT HE IS IN THE HOSPITAL AND HE HAS NO BEER HERE. PT GETS IRRITATED AMD SAYS "FUCK YOU, I WANT MY BEER!" AND ALSO TELLS ME "IM TAKING EVERYTHING FROM HIM" PT IS VERY RESTLESS IN BED.
--- NOTE | 2020-07-15 02:02 | NUR ---
PT TURNED OVER ON ALL FOURS AND TRIES TO GET OUT OF BED TO " GO GET HIS BEER" I WAS ABLE TO GET HIM TO LAY BACK DOWN. I EXPLAINED AGAIN TO HIM THAT HE IS IN THE HOSPITAL AND HE HAS NO BEER HERE IN HIS ROOM.
--- NOTE | 2020-07-15 02:20 | NUR ---
PT AGAIN GOT ON ALL FOURS AND TRIED TO GET OUT OF BED SAYING "IM GOING TO GET MY BEER" WAS ABLE TO GET HIM TO LAY BACK DOWN. HE ASKED FOR THE TV REMOTE SO I GAVE IT TO HIM. HE TURNED THE TV BACK ON.
--- NOTE | 2020-07-15 02:59 | NUR ---
THIS STEEPLECHASE JOCKEY AND FLOAT STEEPLECHASE JOCKEY HELPED PATIENT USE THE BEDSIDE COMMODE. CHANGED PILLOW CASES STAINED WITH DRAINAGE FROM PATIENT'S ARM. PATIENT IS BACK IN BED. STEEPLECHASE JOCKEY FLOAT IS WITH PATIENT ONE ON ONE.
--- NOTE | 2020-07-15 02:59 | NUR ---
PT SAYS HE NEEDS TO POOP. WITH THE HELP OF GEO WANG WE HELPED HIM TO THE BSC AND BACK TO BED WITH HIS FWW. NEW ATTENDS PUT ON. WIPED UP THE FLOOR WHERE HE URINATED. PT LAYING IN BED WATCHING TV
--- NOTE | 2020-07-15 03:12 | NUR ---
WARM BLANKET GIVEN. PT REFUSES ANYTHING ELSE TO DRINK BUT SOME BEER.
--- NOTE | 2020-07-15 03:13 | NUR ---
20 GAUGE IV PLACED IN RIGHT FOREARM PER UNIT PROTOCOL. PT KATHIA WELL. PT STATES "I THOUGHT YOU WERE GOING TO BRING ME A COUPLE BEERS". ORIENTED PT TO LOCATION, STATES "OH, I AM". JUNIOR ORACLE DBA REMAINS 1:1. BED ALARM ON.
--- NOTE | 2020-07-15 03:46 | NUR ---
WITH THE HELP OF TI KNOX WE HELPED PT TO THE BSC AND BACK TO BED WITH HIS FWW. CLEANED UP THE FLOOR DIRTY WITH URINE. BEDSIDE TABLE AND CALL LIGHT IN REACH.
--- NOTE | 2020-07-15 03:59 | NUR ---
IV ABX INFUSING PER ORDER. PT WITH EYES CLOSED PICKING AT LINENS AND AIR. CONTROL PANEL BUILDER REMAINS AT BED SIDE.
--- NOTE | 2020-07-15 04:00 | NUR ---
TOOK OVER 1:1. CHIRAG OFFBEARER TOOK LUNCH BREAK.
--- NOTE | 2020-07-15 05:17 | NUR ---
HELPED PT WITH THE URINAL. PT KEEPS TRYING TO PULL ON HIS IV. PT IS IRRITATED HE CANT HAVE A BEER. KEEPS TRYING TO GET OUT OF BED AND GET HIS BEER. HAVING TO REDIRECT HIM EVERY COUPLE OF MINUTES.
--- NOTE | 2020-07-15 06:09 | NUR ---
VITALS AND I&OS DONE AND CHARTED. PT NEEDED TO USE THE BSC. WITH THE HELP OF TI KNOX WE HELPED PT TO THE BSC AND BACK TO BED WITH HIS FWW. FRESH ICE WATER AND WARM BLANKET GIVEN. BEDSIDE TABLE AND CALL LIGHT IN REACH. PT KEEPS TRYING TO PULL AT HIS IV. PT IS ALSO IRRITATED THAT I CANT GET HIM A BEER. PT TELLS ME AGAIN TO "FUCK OFF" I CONTINUE TO SIT AND MONITOR PT.
--- NOTE | 2020-07-15 06:48 | NUR ---
WITH THE HELP OF TI SALGADO WE HELPED PT UP TO THE BSC AND BACK TO BED WITH HIS FWW. BED ALARM SET. BEDSIDE TABLE AND CALL LIGHT IN REACH.
--- NOTE | 2020-07-15 08:18 | NUR ---
PATIENT IN BED EATING BREAKFAST. WHITE BOARD UPDATED. CALL LIGHT WITHIN REACH. WILL CONTINUE TO MONITOR CLOSLY, PATIENT IS IMPULSIVE.
--- NOTE | 2020-07-15 09:16 | NUR ---
PATIENT STOOD TO USE BSC. FRESH GOWN, LINEN, AND BEDBATH GIVEN. PATIENT STILL CONFUSED. WHEN ASKED "DO YOU KNOW WHERE YOU ARE?" PATIENT RESPONDS WITH "YES. AT THE [facility]." CALL LIGHT WITHIN REACH. NO FURTHER NEEDS AT THIS TIME. BED ALARM ON.
--- NOTE | 2020-07-15 09:43 | NUR ---
Patient sitting up in bed, a&ox2. Pt reports he is feeling better today. Left arm elevated on pillows. Left arm is edematous/red, warm to touch and weeping serous fluid in a few different locations. Left inner arm skin is excoriated. Arm open to room air. Patient reports pain is tolerable. Patient has no needs at this time. Pt states he is tired and will be taking a nap soon. Bed alarm intact and call light within reach.
--- NOTE | 2020-07-15 12:00 | NUR ---
Pt. worked with PT, he is confused when I arrived. Able to state where he lives, but does not know where he is here today. States he lives with his mom. Called and spoke with his sister, Annelise. She states pt cannot come home as mother is 90 and unable to care for Hossein. Discussed SNF and [facility]. She would like him placed. Updated we cannot send him anywhere if he does not agree to go. Discussed [facility] medicaide. Infomred I will call [facility] and see if he could qualify for [facility] through them. Called and spoke with Ana Copeland, and she request Annelise call her.
--- NOTE | 2020-07-15 13:09 | NUR ---
Oxycodone 2.5mg po admin for reports of left arm pain. Non adherent gauze then kerlix applied to left lower/forearm area per doc order.
--- NOTE | 2020-07-15 14:53 | NUR ---
Patient resting in chair, respirations even and non labored. Patient has no distress noted. Bed alarm intact. Personal supplies and call light within reach.
--- NOTE | 2020-07-15 15:07 | NUR ---
PATIENT UP TO BATHROOM THEN TO CHAIR, 1PA. WARM BLANKET GIVEN. CHAIR ALARM ON. LINENS CHANGED. CALL LIGHT IN REACH. NO FURTHER NEEDS AT THIS TIME.
--- NOTE | 2020-07-15 16:10 | NUR ---
Spoke with Annelise, she states mom is now stating he cannot return home. She is unable care for him. She states pt's son, Cleopatra is on his way to speak with Hossein and let him know he need to go to a SNF or SNF. He will let him know he cannot return as his 90 yo mother cannot care for him.
--- NOTE | 2020-07-15 16:15 | NUR ---
Call from Ana and she needs further information. I spoke with Hossein, he declines SNF.
--- NOTE | 2020-07-15 17:22 | NUR ---
oXYCODONE 2.5MG PO ADMIN FOR REPORTS OF 5/10 LEFT ARM PAIN.
--- NOTE | 2020-07-15 17:55 | NUR ---
PATIENT IN BED WATCHING TV. BED ALARM ON. WARM BLANKET GIVEN. CALL LIGHT IN REACH. NO FURTHER NEEDS AT THIS TIME.,
--- NOTE | 2020-07-15 18:07 | NUR ---
Patient in bed resting, respirations even and non labored. Patient has no distress. Bed alarm intact. Close to RN station.
--- NOTE | 2020-07-15 19:10 | NUR ---
REPORT RECEIVED FROM DAY SHIFT RN. PT LYING IN BED WITH EYES CLOSED. RESPIRATIONS EVEN AND UNLABORED. BED ALARM FOR SAFETY. PT IN VIEW OF NURSES STATION. WHITE BOARD UPDATED.
--- NOTE | 2020-07-15 20:45 | NUR ---
BED ALARM WENT OFF. PATIENT WAS UP. PATIENT USED THE BEDSIDE COMMODE AND VOIDED. PATIENT WENT BACK TO BED. V/S AND I&O DONE.
--- NOTE | 2020-07-15 21:14 | NUR ---
BED ALARM SOUNDING. PT UP TO SIDE OF BED TO VOID 600 ML WITH ASSIST. GAIT UNSTEADY. BACK TO BED, KATHIA WELL. PT PLEASANT AND COOPERATIVE. ABLE TO FOLLOW COMMANDS. SCHEDULED MEDS ADMINISTERED PER EMAR. LUE WRAPPED IN KERLEX AND ELEVATED ON PILLOWS. PT DENIES PAIN OR NAUSEA. BED ALARM FOR SAFETY.
--- NOTE | 2020-07-16 00:02 | NUR ---
PT STIRRING IN BED. THIS RN IN TO ASSIST PT TO VOID AT BESIDE WITH SBA. PT COOPERATIVE AND FOLLOWING COMMANDS. BACK TO BED, KATHIA WELL. REMAINS DISORIENTED TO TIME, PLACE, AND EVENT. SODA PROVIDED PER REQUEST. NO FURTHER NEEDS. BED ALARM FOR SAFETY.
--- NOTE | 2020-07-16 01:41 | NUR ---
PT CALLING OUT FOR HELP. THIS RN IN TO ASSIST PT TO STAND AT BEDSIDE AND USE URINAL. BACK TO BED, KATHIA WELL. GAIT UNSTEADY AT TIMES. DRESSING TO LEFT ARM SATURATED WITH SEROUS DRAINAGE. REPLACED KERLIX AND NON-ADHERENT PADS. ELEVATED LUE ON PILLOWS. CLEAN GOWN AND LINEN PROVIDED. PT REQUESTING A SODA, PROVIDED. BED ALARM FOR SAFETY. CALL LIGHT IN REACH.
--- NOTE | 2020-07-16 03:56 | NUR ---
PT USED HIS CALL LIGHT TO ASK IF HE COULD GET HELP USING THE BATHROOM. I HELPED PT WITH HIS URINAL AT THE SIDE OF HIS BED. BEDSIDE TABLE AND CALL LIGHT IN REACH. PT NEEDS NOTHING MORE AT THIS TIME. BED ALARM SET.
--- NOTE | 2020-07-16 04:05 | NUR ---
IV ABX INFUSING PER ORDER. SNACK PROVIDED PER REQUEST. LUE ELEVATED ON PILLOWS. BED ALARM FOR SAFETY.
--- NOTE | 2020-07-16 06:17 | NUR ---
CALL LIGHT ANSWERED. PT UP TO SIDE OF BED TO USE URINAL WITH SBA AND FWW. GAIT UNSTEADY AT TIMES. BACK TO BED, KATHIA WELL. PT REMAINS DISORIENTED TO PLACE, EVENT, AND TIME. PLEASANT AND COOPERATIVE THIS AM. ABLE TO FOLLOW DIRECTION. LUE ELEVATED ON PILLOWS. VS AND I&O COMPLETE. BED ALARM FOR SAFETY.
--- NOTE | 2020-07-16 07:56 | NUR ---
Patient in bed resting, respirations even and non labored. Left arm elevated. Pt has no distress noted. Personal supplies and call light within reach.
--- NOTE | 2020-07-16 09:15 | NUR ---
PATIENT AWAKE IN BED. VITALS AND I&OS CHARTED. MANUAL BP BY STUDENT. FRESH ICE WATER PROVIDED. CALL LIGHT IN REACH
--- NOTE | 2020-07-16 09:20 | NUR ---
Returned call to Ana at [facility]. She states she needs to speak with Hossein to confirm he will accept Medicaid. To room and updated Hossein, called Ana from the room so Hossein could speak with her.
--- NOTE | 2020-07-16 10:50 | NUR ---
Spoke with Ana. Hossein agreed to go tp [facility], but declined medicaid and [facility]. I went and spoke with Hossein and he is now stating he will go to SNF. Chart faxed to [facility] as this is the only SNF he will go to.
--- NOTE | 2020-07-16 13:04 | NUR ---
PT SITTING IN CHAIR, LAB HERE FOR DRAW. GAVE ENCOURAGEMENT, PT SAID HE IS TRYING TO GET BETTER. WILL CONTINUE TO FOLLOW
--- NOTE | 2020-07-16 13:12 | NUR ---
Received message from [facility] they reviewed pt's packet and they can admit on Tuesday. Dr. Rush updated and will complete orders tomorrow.
--- NOTE | 2020-07-16 13:47 | NUR ---
PATIENT CALLED FOR ASSISTANCE WITH URINAL. VITALS AND I&OS CHARTED ALSO. CALL LIGHT IN REACH, GARBAGE EMPTIED, NO OTHER NEEDS AT THIS TIME
--- NOTE | 2020-07-16 14:14 | NUR ---
PATIENT AMBULATING HERNANDEZ WITH P/T.
--- NOTE | 2020-07-16 14:21 | NUR ---
Oxycodone 2.5mg po admin for reports of 5/10 left arm pain.
--- NOTE | 2020-07-16 14:57 | NUR ---
Patient resting in bed, respirations even and non labored. Left arm elevated at this time. Dressing to left arm CDI. Patient has no distress noted. Personal supplies and call light within reach.
--- NOTE | 2020-07-16 16:21 | NUR ---
REPORT RECIEVED FROM TI RYAN. PT IN BED WITH LIGHTS OFF, APPEARS TO BE RESTING.
--- NOTE | 2020-07-16 16:46 | NUR ---
Attempted to call pt's mom, her phone is disconnected. I then called his sister, Annelise cell and work. Voicemail is full and no answer at her work.
--- NOTE | 2020-07-16 16:57 | NUR ---
PT AWAKE WATCHING TV. STATES HIS ARM FEELS OK RIGHT NOW BECAUSE HE TOOK A PAIN PILL. APPLIED GEL TO EYES. TOLERATED WELL. CALL LIGHT IN REACH.
--- NOTE | 2020-07-16 19:50 | NUR ---
TRYING TO GET OUT OF BED, URINAL GIVEN, VOIDED SMALL AMOUNT OF YELLOW URINE. COOPE, REPORITONED SELF IN BED, L ARM ELEVATED IN PILLOWS, DRESSING INTACT
--- NOTE | 2020-07-16 20:30 | NUR ---
CALLED TO USE URINAL. VOIDED SMALL AMOUNT OF YELLOW URINE, COOP. REPOSITONS SELF
--- NOTE | 2020-07-16 21:03 | NUR ---
CALL LIGHT ANSWERED. ASSISTED TO USE URINAL FOR VOID IN BED. pt C/O LEFT ARM PAIN, RN ALESSIA IN ROOM TO MEDICATE pt. VSS. INTAKE AND OUTPUT RECORDED.
--- NOTE | 2020-07-16 21:15 | NUR ---
IN BED, ROOM AIR, MOIST NON PRODUCTIVE FREQUENT COUGH PRESENT. C/O WEAKNESS L ARM, EDEMATOUS, DRESSING IN PLACE. ELEVATED WITH PILLOWS, GOOD CMS, SCABBED OVER/PEELING AREAS OVER ARM AND BODY HEALING. C/O PAIN L ARM, MEDICATED WITH OXYCODONE 2.5MG PO. VOIDING FREQUNET AMOUNST OF QS URINE, CLEAR,YELLOW. SLIGHT REDNESS AT ABD FOLDS. LEGS EDEMA 2+ ELEVATED. SL RA, INFUSING ABX, NO C/O ADVERSE REACTION TO VANCOMYCIN ABX. TOLERATING FLUIDS WELL. CALL LIGHT AT BEDSIDE
--- NOTE | 2020-07-16 21:55 | NUR ---
HELPED PT WITH HIS URINAL. BEDSIDE TAABLE AND CALL LIGHT IN REACH. PT NEEDS NOTHING MORE AT THIS TIME.
--- NOTE | 2020-07-16 22:34 | NUR ---
PER PT REQUEST I HELPED HIM WITH HIS URINAL. BEDSIDE TABLE AND CALL LIGHT IN REACH. PT NEEDS NOTHING MORE AT THIS TIME.
--- NOTE | 2020-07-16 23:00 | NUR ---
ALARM GOING OFF, TRYING TO GET OUT OF BED, USED URINAL, VOIDED SMALL AMOUNT . CALL LIGHT AND FLUIDS AT BEDSIDE
--- NOTE | 2020-07-17 00:17 | NUR ---
USED CALL LIGHT, VOIDED QS, REPOSITONS SELF IN BED. CALM
--- NOTE | 2020-07-17 00:58 | NUR ---
BED ALARM ACTIVATED, WENT INTO CHECK ON HIM AND TURN OFF ALARM. PT STATES HE NEEDS TO PEE. I HELPED HIM WITH HIS URINAL. BEDSIDE TABLE AND CALL LIGHT IN REACH. BED ALARM SET.
--- NOTE | 2020-07-17 01:12 | NUR ---
PT WAS YELLING OUT TO COME HELP HIM GET FROM THE CHAIR TO THE BED. I EXPLAINED TO HIM I NEED TWO PEOPLE TO JUSTINE HIM BACK TO BED. HE SAID "HELP ME NOW!" AGAIN I EXPLAINED TO HIM I WILL GET SOME HELP IF HE CAN WAIT A FEW MINUTES. I LEFT TO GET HELP.
--- NOTE | 2020-07-17 01:18 | NUR ---
WITH THE HELP OF RN'S DEDRA AND DELROY WE HOYERED PT BACK TO BED FROM THE CHAIR. WARM BLANKET GIVEN. BEDSIDE TABLE AND CALL LIGHT IN REACH. PT SAYS HE DOES NOT NEED ANYTHING MORE AT THIS TIME.
--- NOTE | 2020-07-17 01:54 | NUR ---
ALRM GOING OFF, "I JUST MOVED, DO NOT NEED ANYTHING. AWAKE, BED ALARM ON
--- NOTE | 2020-07-17 01:58 | NUR ---
PT USED HIS CALL LIGHT IN NEED OF HELP TO USE HIS URINAL. I HELPED HIM. BEDSIDE TABLE AND CALL LIGHT IN REACH. NOTHING MORE NEEDED AT THIS TIME.
--- NOTE | 2020-07-17 02:47 | NUR ---
used call light, voided in urinal, QS yellow urine. call light and fluids at bedside. bed alarm on. no c/o apin or n/v L arm elevated, kerlix dressing in place
--- NOTE | 2020-07-17 03:30 | NUR ---
Used call light, voided using urinal, QS, fluids at bedside, no c/o pain, kerlix L arm, elevated w pillows
--- NOTE | 2020-07-17 04:51 | NUR ---
Pt has been awake all this shift. On room air, impulsive, bed alarm on, high fall restrictions in place. SL patent, infusing Vancomycin abx w/o problems. L arm edema, cellulkitis, elevated in pillows low arm covered with Kerlix, good cms, weak answering service agent. Edema LE. Tolerating fluids well, voiding large amounts of clear urine, uses urinal and requires assist, attends in place. multiple scabbed over areas all over body healing. Pt forgetful but easily redirectable. uses call light at times and tries to get out of bed at times, unsteady gait. Continue to reinforce fall precautions and reorient with each interaction
--- NOTE | 2020-07-17 05:29 | NUR ---
used call light, awake, calm, voided QS medium yellow urine, toleraing sips of fluids, iv abx infusing. L arm dresiin in place, elevated
--- NOTE | 2020-07-17 06:40 | NUR ---
Resting, no distress, eyes closed. call light at bedside, IVF infusing
--- NOTE | 2020-07-17 07:02 | NUR ---
Report from Rosalva Vera RN. Patient resting in bed with eyes closed, respirations even and unlabored. Allowed to rest at this time.
--- NOTE | 2020-07-17 07:24 | NUR ---
used call light, voided medium yellow urine.
--- NOTE | 2020-07-17 08:00 | NUR ---
GOT PATIENT OUT OF THE BED INTO THE CHAIR FOR BREAKFAST. PATIENT TRANSFERED HIMSELF BACK TO THE BED. SO THIS SITE SUPERVISOR PUT A CHAIR ALARM ON THE CHAIR AND TURNED ON THE BED ALARM.
--- NOTE | 2020-07-17 09:10 | NUR ---
AM medications administered as prescribed. Takes without difficulty. Assessment completed. Denies other needs at this time. Call light in reach, bed rails up X2.
--- NOTE | 2020-07-17 12:07 | NUR ---
Worked with PT. Dry dressing applied to left arm. Tolerated well. Denies needs at this time. Call light in reach, bed rails up X2.
[2020-07-17] MEDS ORDERED: NICOTINE PATCH1 EAC1 TD (13:44)
[2020-07-17] MEDS ORDERED: LACTULOSE10 GM/15 M PO (13:44)
[2020-07-17] MEDS ORDERED: XIFAXAN550 MG PO (13:44)
[2020-07-17] MEDS ORDERED: DOXYCYCLINE HY100 MG PO (13:45)
--- NOTE | 2020-07-17 14:06 | NUR ---
Patient lying in bed. Medication given as prescribed. Takes with some complaints. Denies other needs at this time. Call light in reach, bed rails up X2, bed alarm activated.
--- NOTE | 2020-07-17 16:47 | NUR ---
Lactulose brought to patient. States "I ain't taking anymore of that stuff, I've been in the bathroom all night." Refuses lactulose. Continent of bowel and bladder at this time. Returns to bed, bed alarm activated, side rails up and call light in reach.
--- NOTE | 2020-07-17 20:10 | NUR ---
IN RM TO ASST PT UP TO VOID, THEN BACK INTO BED, ALARM RESET AT THIS TIME, NO FURTHER NEEDS AT THIS TIME
--- NOTE | 2020-07-17 20:36 | NUR ---
pt awake, more alert to self, place and situation. coop with assessment. On room air, lungs clear, moist non productive cough present at this time. abd large, soft, malka, edema le 2+ and L arm 2+, decreased redness, good cms, Kerlix dressing in place. scabbed over areas all over upper L ar, chest arms and legs healing, tolerating liquids well, Bed alarm on for safety. IV abx infusing
--- NOTE | 2020-07-17 22:49 | NUR ---
UP TO BR, SOB ON RETURN NOTED, TOLERATED FAIR, SATS 95% r24, DOWN TO 17 ONCE BACK TO BED, TURNS SELF IN BED, ON ROOM AIT. LUNGS CLEAR BILAT
--- NOTE | 2020-07-17 23:28 | NUR ---
UP TO BR, USED WALKER, DID NOT CALLED FOR HELP, MUCH MORE STEADY GAIT AND STAMINE, BACK TO BED, VOIDED QS YELLOW URINE, BOTH ARMS ELEVATED AND LE
--- NOTE | 2020-07-18 00:31 | NUR ---
Up and walking in room, walked out to hallways up and down nursing hallways and back, fww/sba, tolerated very well, no sob, no gait problems, much more alert, and much improved gait, back to bed, bed alarm off at thi stime. L arm dressing intact, elevated in pillows, edema w/o changes from earlier. Cooperative, calm, using call light appropriately
--- NOTE | 2020-07-18 01:15 | NUR ---
PT WAS UP AT SIDE OF BED, BED ALARM SET OFF, PT UP TO VOID AT THIS TIME, SEEMING CONFUSED, WANTING TO LEAVE THE BUILDING, [facility] REDIRECTING PT, PT MADE ONE LAP IN HERNANDEZ, DECIDED TO GO BACK TO BED BECAUSE HE CANT LEAVE UNTIL THE MORNING, REMINDING PT THAT IT IS 0115 IN THE MORNING AND THAT HE WILL D/C LATER TODAY, PT SEEMS TO AGREE AND IS BACK IN BED AT THIS TIME, NO FURTHER NEEDS, BED ALARM IS SET, INFORMED TI PABLO PT's CONFUSION,
--- NOTE | 2020-07-18 02:00 | NUR ---
Walked a few minutes ago up and down hallways, sba/fww, tolerated well, confused, easily reoriented, back to bed, bed alarm on.
--- NOTE | 2020-07-18 02:32 | NUR ---
PT TRIED TO LEAVE HOSPITAL, IM NOT HERE, MY ROOM IS IN THE SECOND FLOOR, REORIENTED, BACK TO ROOM, BACK TO BED, BED ALARM ON. PT IS TO BE DC TODAY, GAIT MUCH BETTER, STILL CONFUSED AT BASELINE. EASILY REDIRECTABLE
--- NOTE | 2020-07-18 04:41 | NUR ---
PT UO ON SIDE OF BED, BED ALARM SET OFF, PT NEEDS TO USE THE TOILET, RN DECOVERED PT TOOK IV OUT, ABLE TO CONVINCE PT TO PUT NEW IV SITE TO FINISH IV ANTIBIOIC SO PT CAN GO HOME TODAY, VITALS DONE, NO FURTHER NEEDS AT THIS TIME
--- NOTE | 2020-07-18 04:45 | NUR ---
pt up to br, voided, 1pasba/fww, on return to bed noticed that he had pulled IV off. Refused to have restarted, after several cues agree to have another nurse try it. Scabbed over areas all over body healing, bruising L chest w/o changes, L arm edema, redness w/o changes, dressing inplace. 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
--- NOTE | 2020-07-18 04:52 | NUR ---
Awake off and on most of this shift, has slept approx 2 hrs this shift. Confused at baseline, reorients easily. Has walked hallways several times 1PSBA/FWW toleratd well. On room air, lungs clear dim at bases. 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 Pulled IV, declined to have it restarted. after several cues agreed to have a new iv. procedure explained. Has been voided large amount of clear yellow urine, tolerting fluids well, no emesis. uses call light off and on. Bed alarm on for safety.
--- NOTE | 2020-07-18 04:55 | NUR ---
pt PULLED IV. NEW IV PLACED. pt TOLERATED WELL. IV ABX INFUSING. PRIMARY RN NOTIFIED.
--- NOTE | 2020-07-18 06:04 | NUR ---
PT TRYING TO GET UP TO BR, PULLED IV BY ACCIDENT. DR VENCES NOTIFIED VIA PHONE, NEW ORDERS TO KEEP IV OFF, AND START DOXYCICLINE 100MG PO X1. pT IN BED, COOPERATIVE, IV SITE 2X2 IN PLACE. NOT USING CALL LIGHT, BED ALARM ON, CONFUSED, EASILY REDIRECTABLE. PT IS TO BE DC HOME TODAY
--- NOTE | 2020-07-18 06:11 | NUR ---
BED ALARM GOING OFF, PT AT BEDSIDE, IV BEEN PULLED OUT, PT STATES IV WAS CAUGHT IN LINENS, COBAND IN PLACE, CLEANED UP BLOOD, PT WAS UP TO VOID, RN IN TO DISCONTINUE IV, NO FURHTER NEEDS AT THIS TIME
--- NOTE | 2020-07-18 07:05 | NUR ---
BEDSIDE REPORT RECEIVED FROM TI AGGARWAL. pt STANDING IN DOORWAY, ATTEMPTING TO LEAVE. REORIENTED TO PLAN OF DAY, BREAKFAST, GET DRESSED. pt BACK IN BED. BED ALARM ON.
--- NOTE | 2020-07-18 08:00 | NUR ---
Orders, PASRR, medication list, Dc summary faxed to [facility] to [facility]. Received text pt can admit between 09:30 and 1 Pm. Charge nurse notified.
--- NOTE | 2020-07-18 08:02 | NUR ---
BED ALARM SOUNDING. SBA TO RESTROOM FOR UNMEASURED VOID. ASSESSMENT COMPLETE. REORIENTATION TO EXACT DATE AND PLAN FOR CARE AT SNF. pt COOPERATIVE AFTER EXPLANATION OF NEED FOR ANTIBIOTICS, MOTHER UNABLE TO ASSIST IN CARE. BED ALARM ON.
--- NOTE | 2020-07-18 09:08 | NUR ---
pt SLEEPING, AWAKENS TO VOICE. SCHEDULED MEDICATIONS ADMINISTERED. LEFT ARM WRAPPERD PER ORDERS. BED ALARM ON. pt IS REQUESTING TO SLEEP.
--- NOTE | 2020-07-18 09:10 | NUR ---
BED ALARM RINGING, PATIENT FOUND ATTEMPTING TO STAND UP. SBA TO BR. PATIENT CONFUSED TO PLACE BUT KNOWS HE'S "STILL DOWNTOWN" BACK TO BED, VITALS AND I&OS CHARTED, ALARM ON, CALL LIGHT IN REACH, NO OTHER NEEDS AT THIS TIME
--- NOTE | 2020-07-18 10:34 | NUR ---
HANDOFF REPORT GIVEN TO RN AT [facility].
--- NOTE | 2020-07-18 11:00 | NUR ---
pt OFF FLOOR VIA WHEELCHAIR WITH TI CHEEMA. VSS. PERSONAL SUPPLIES WITH PATIENT.
== END 2020-07-18 10:55 | DRG 872 ==
LOC: ED 09:26 → MS 16:26 → CCU 16:26 → MS 07-13 18:15
PROVIDERS: ADMIT Internal Medicine; ATTEND Internal Medicine
DX: A41.02 Sepsis due to Methicillin resistant Staphylococcus aureus (principal); L03.114 Cellulitis of left upper limb; E87.1 Hypo-osmolality and hyponatremia; F10.239 Alcohol dependence with withdrawal, unspecified; Z20.828 Contact with and (suspected) exposure to other viral communicable diseases; R65.20 Severe sepsis without septic shock; F17.210 Nicotine dependence, cigarettes, uncomplicated; K70.30 Alcoholic cirrhosis of liver without ascites; F39 Unspecified mood [affective] disorder; Z79.899 Other long term (current) drug therapy
CPT/HCPCS: 36415; 71045; 80048; 80053; 80202; 81001; 82803; 83605; 83735; 85025; 87040; 93971; 94760; 96365; 96375; 97110; 97116; 97162; 97165; 97167; 99285-25; C9803; J0692; J0696; J2060; J3370; J7030; J7060; J7121; U0003

== ENCOUNTER 2021-02-06 08:42 | Inpatient (IN) | payer OTHER ==
[~2021-02-06] VITALS: Ht 180.3 cm; Wt 104.6 kg
[~2021-02-06 08:42] MED LIST changes: +XIFAXAN550 MG PO
--- OUTSIDE RECORDS SUMMARY | 2021-02-06 08:50 | XMS ---
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 \F\ [facility] PHONE: [phone] JEAN BARAHONA Internal Medicine Current PHONE: [phone] MORIS SINGLETON Nurse Practitioner Current PHONE: [phone] CAMILA CM Nurse Practitioner: Family Current PHONE: [phone] KEYUR WALTERS Internal Medicine Current PHONE: [phone] BRITTANEY MARTÍNEZ Internal Medicine Current PHONE: [phone] TAMMI PAIGE Family Medicine Current PHONE: Unknown MIKE [facility] 07/14/2020[facility] PHONE: [phone] Vania has no Care Guidelines for this patient. Care History Medical/Surgical 07/14/2020 [facility] - PATIENT IS [facility] ELIGIBLE, \T\middot;\T\nbsp; PLEASE REFER PATIENT TO [facility] FOR NON EMERGENT MEDICAL NEEDS. \T\middot;\T\nbsp; [facility] CAN SEE PATIENTS SAME DAY FOR APTS IF PATIENT CALLS FIRST THING IN THE MORNING. 05/14/2020 [facility] - [facility] IS UNABLE TO CONTACT PATIENT- PATIENT WOULD BENEFIT FROM [facility]. 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 VISIT COUNT (12 MO.) 4 [facility] TOTAL 4 NOTE: Visits indicate total known visits. ED/UCC VISIT TRACKING (12 MO.) 02/06/2021 08:43 [facility] TYPE: Emergency COMPLAINT: - ABD PAIN 07/12/2020 09:27 [facility] TYPE: Emergency [...] - Nicotine dependence, unspecified, uncomplicated - Other halfway (current) drug therapy - Cellulitis of left lower limb 04/16/2020 11:42 [facility] TYPE: Emergency COMPLAINT: - L LEG SWOLLEN INPATIENT VISIT TRACKING (12 MO.) 07/12/2020 16:26 [facility] TYPE: Medical Surgical COMPLAINT: - ALCOHOL WITHDARW, SEPSIS, CELLULITIS DIAGNOSES: - Severe sepsis without septic shock - Alcohol dependence with withdrawal, unspecified - Nicotine dependence, cigarettes, uncomplicated - Sepsis, unspecified organism - Severe sepsis without septic shock - Hypo-osmolality and hyponatremia - Contact with and (suspected) exposure to other viral communicable diseases - Unspecified mood [affective] disorder - Cellulitis of left upper limb - Alcohol dependence with withdrawal, unspecified - Sepsis due to Methicillin resistant Staphylococcus aureus - Cellulitis of left upper limb - Hypo-osmolality and hyponatremia - Contact with and (suspected) exposure to other viral communicable diseases - Unspecified mood [affective] disorder - Alcoholic cirrhosis of liver without ascites - Other terminal superintendent (current) drug therapy - Alcoholic cirrhosis of liver without ascites - Nicotine dependence, cigarettes, uncomplicated - Other halfway (current) drug therapy - Sepsis due to Methicillin resistant Staphylococcus aureus 04/16/2020 16:[address] [facility] TYPE: Medical Surgical COMPLAINT: - SEPSIS CELLULITIS DIAGNOSES: - Alcoholic hepatitis without ascites - Other terminal superintendent (current) drug therapy - Hypo-osmolality and hyponatremia - Nicotine dependence, cigarettes, uncomplicated - Cellulitis of left lower limb - Alcoholic hepatitis without ascites - Contact with and (suspected) exposure to other viral communicable diseases - Alcoholic cirrhosis of liver without ascites - Contact with and (suspected) exposure to other viral communicable diseases - Other terminal superintendent (current) drug therapy - Hypo-osmolality and hyponatremia - Alcohol dependence with withdrawal, unspecified - Alcohol dependence with withdrawal, unspecified - Alcoholic cirrhosis of liver without ascites - Sepsis, unspecified organism - Nicotine dependence, cigarettes, uncomplicated - Cellulitis of left lower limb [email or web address]
--- NOTE | 2021-02-06 20:00 | NUR ---
PATIENT ARRIVED VIS STRETCHER. PATIENT UNWILLING/UNABLE TO MOVE DUE TO PAIN. TRANSFERED ACROSS TO BED WITH 3PA. PATIENT YELLS LOUDLY AND REPORTS PAIN. PATIENT IS ANXIOUS AND SHAKING. ABLE TO SETTLE ONCE MOVING IS DONE. VS STABLE. UNABLE TO DO ORAL TEMP, PATIENT NOT KEEPING LIPS CLOSED. AXILLARY TEMP ELEAVTED. MD NOTIFED. ONE TIME DOSE OF TYLENOL ORDERED. PATIENT UNWILLING TO SIT UP DUE TO PAIN. ROLLED TO HIS SIDE. TOLERATED SWALLOWING PILLS AND WATER WELL. SECOND IV SITE ESTABLISHED BY RV SERVICE TECHNICIAN. PATIENT DROWSY AND STARTS TO SNORE. 4L NC IN PLACE, APPEARS TO HAVE SOME SLEEP APNEA. IV ABX AND FLUIDS PER ORDER. RASH NOTED ON PATIENT'S UPPER BODY AND THIGHS. PATIENT UNSURE IF THIS IS NEW OR OLD. PATIENT HAS MANY SCABS AND SCARS ON HIS FACE, CHEST AND ARMS. ABD IS DISTANDED, TENDER THROUGHOUT. BOWEL SOUNDS ACTIVE TO HYPER ACTIVE. WARD DRAINING FRED COLORED URINE.
--- NOTE | 2021-02-06 21:21 | NUR ---
REPORTED MAG VAULE TO . VERBAL ORDER RECEIVED FOR 2G MAG REPLACEMENT IV.
--- NOTE | 2021-02-06 22:36 | NUR ---
PATIENT APPEARS TO BE SLEEPING SOUNDLY. VS STABLE. AXILLARY TEMP CONTINUES TO BE ELEVATED. IV FLUIDS PER ORDER, SITE WNL. PATIENT TOLERATING 4L NC WHILE SLEEPING, SNORING LOUDLY. HOB ELEVATED SLIGHTLY. PATIENT DOES NOT WAKE. ALLOWED TO REST. URINE IN WARD APPEARS RED. NO SIGNS OF TRAUMA AROUND URETHRA. WILL CONTINUE TO MONITOR.
--- NOTE | 2021-02-07 00:16 | NUR ---
PATIENT CONTINUES TO SLEEP SOUNDLY. VS STABLE. AXILLARY TEMP ON RIGHT IS 102.6F AND ON LEFT IS 101.0F. PATIENT DOES NOT APPEAR DIAPHORETIC OR OVERLY WARM TO THE TOUCH. ROOM TEMP ADJUSTED. ALLOWED PATIENT TO REST. IV FLUIDS PER ORDER, SITE WNL. ADEQUATE URINE OUTPUT WITH WARD, COLOR IS FRED/RED. TOLERATING 4L NC WHILE SLEEPING.
--- NOTE | 2021-02-07 01:44 | NUR ---
HEARD PT TALKING, IN TO CHECK ON HIM. WATER PROVIDED PER REQUEST, DRANK 500ML WATER STATING "I'M SO THIRSTY." PT ALSO REPORTS FEELING HOT, COOL CLOTH PLACED ON FOREHEAD.
--- NOTE | 2021-02-07 02:30 | NUR ---
PATIENT RESTING WITH EYES CLOSED. NONLABORED BREATHING. DOES NOT WAKE WHEN RN ENTERS ROOM. IV SITE WNL, FLUIDS PER ORDER. WARD DRAINING TEA COLORED URINE. VS STABLE.
--- NOTE | 2021-02-07 03:50 | NUR ---
PATIENT WOKE EASILY. REQUEST WATER. ABLE TO SIT UP AND DRINK LARGE AMOUNT OF WATER. REPORTS FEELING VERY THIRSTY WHICH HE NORMALLY DOES NOT. PATIENT IS ORIENTED X4, CALM AND APPROPRIATE. REPORTS IMPROVED PAIN AT THIS TIME. DOES MAKE SOME MOANING AND GROANING NOISES BUT INSIST HE FEELS BETTER THAN LAST NIGHT. NO NAUSEA. TOLERATING 4L NC WHILE SLEEPING. WARD DRAINING SMALL AMOUNTS OF TEA COLORED URINE. NO EDEMA NOTED. LUNG SOUNDS ARE DIMINSIHED IN BASES, CLEAR IN UPPERS. CALL LIGHT IN REACH.
--- NOTE | 2021-02-07 06:19 | NUR ---
PATIENT APPEARS TO BE SLEEPING SOUNDLY. VS STABLE. WARD EMPTIED. PATIENT TOLERATING 4L NC. IV FLUIDS PER ORDER, SITE WNL. ALLOWED PATIENT TO REST. CALL LIGHT IN REACH. BED ALARM ACTIVE.
--- NOTE | 2021-02-07 06:28 | NUR ---
PATIENT ATTEMPTING TO GET OUT OF BED, BED ALARM SOUNDS. PATIENT LAYING DOWN WHEN STAFF ENTERS. REPORTS HE WAS JUST GETTING A DRINK OF WATER. INSTRUCTED PATIENT TO PULL HIMSELF UP IN THE BED. PATIENT STATES "I CAN'T DO THAT" BUT UPON PROVIDING THE TRAPEAS HE WAS ABLE TO PULL HIMSELF UP. PATIENT COMPALINS OF LOWER ABD PAIN, YELLS "GIVE ME A PAIN PILL OR A SHOT". ENCOURAGED PATIENT TO STAY CALM. OFFERED WARM PACK OR REPOSITIONING, PATIENT REFUSED. LAB IN TO DRAW LABS, PATIENT REFUSED THIS WELL.
--- NOTE | 2021-02-07 06:45 | NUR ---
PATIENT SLEEPING SOUNDLY. SNORING, VS STABLE. ALLOWED TO REST.
--- NOTE | 2021-02-07 07:45 | NUR ---
PATIENT RESTING IN BED UPON INITIAL ASSESSMENT, AND NOTED TO BE MOANING OUT IN DISCOMFORT. PATIENT STATES HIS LOWER ABDOMEN IS WHERE HIS PAIN IS, AND RATES IT A 8/10. PRN MORPHINE AVAILABLE. PATIENT HAS A GENERALIZED RASH OVER HIS BODY, RED AND BLOTCHY IN NATURE, MOSTLY IN THE UPPER CHEST/ABDOMEN AREA. IV SITE IN LEFT AC HAS BEEN ACCIDENTALLY REMOVED BY PATIENT. IV SITE IN RIGHT FOREARM INFILTRATED. NEW IV SITE TO BE SOUGHT. PATIENT REMAINS ON OXYGEN, 3 L.
--- NOTE | 2021-02-07 10:02 | NUR ---
BLOOD CULTURES COLLECTED FROM NEW IV SITE IN RIGHT AC AND VENIPUNCTURE IN LEFT HAND. PT TOLERATED FAIR. PT STILL IN QUITE A BIT OF PAIN - RATING IT A 8/10. HR IN THE 100s. PT IS TACHYNPEIC WELL. TEMP IS 100.7 AT THIS TIME. PT MOANING IN PAIN STILL, SAYING, "OH GOD, OH GOD, WHEN ARE THEY GOING TO FIGURE THIS OUT." DR. CARRINGTON IN TO SEE PATIENT THIS AM AND REPORTS PATIENT'S PAIN SEEMS IMPROVED FROM YESTERDAY. IVF CONTINUE AT 50 ML/HR. PT IS NOTED TO BE SOMEWHAT TREMULOUS, EVEN WHEN RESTING. PT HAS ALSO BEEN SEEN SIMULATING BRINGING SOMETHIGN TO HIS MOUTH, EITHER SIMULATING A DRINK OR A CIGARETTE. NICOTINE PATCH ON RIGTH SHOULDER. WILL CONTINUE TO MONITOR.
--- NOTE | 2021-02-07 10:57 | NUR ---
PATIENT NOTED TO BE RESTING WITH EYES CLOSED. PT AWAKENS EASILY. HR REMAINS 110 WHILE RESTING. IV FLAGYL STARTED. CONTINUE TO MONITOR.
--- NOTE | 2021-02-07 12:37 | CONS ---
[facility] [address], [place] [address] Signed DATE OF CONSULTATION: 02/06/2021 CONSULTING PHYSICIAN: Glenys Krishnan MD REQUESTING PHYSICIAN: Dr. Blevins. PROBLEM: Diffuse abdominal pain, bladder outlet obstruction and hydropic appearing gallbladder with gallstone. HISTORY OF PRESENT ILLNESS: This 65-year-old man is accompanied by his sister, Josias Holcomb. He presented to the emergency room earlier in the day (it is now 5:00 p.m.) with diffuse abdominal pain and tenderness. He did not have right subcostal pain, but mostly pain in the suprapubic area. His evaluation included a CT scan of the abdomen and pelvis, which showed a markedly distended bladder as well as a hydropic appearing gallbladder with gallstone but no pericholecystic fluid, gallbladder wall thickening or other finding. Notably, it also showed findings consistent with cirrhosis as well as portal hypertension. A Mehta catheter was placed, which delivered braulio appearing urine, for which his serum bilirubin correlated at 3.6. His liver enzymes showed an AST of 76, ALT 33, and alkaline phosphatase of 100. He was noted to have a low albumin of 2.9. His CBC showed white count of 7.6, hematocrit of 39.4, and platelets were considered "clumped" which could not correlate particularly to thrombocytopenia or thrombocytosis upon my consultation with the labs personnel. Coag studies were performed, which showed an elevated INR of 1.4. The patient is known to have chronic alcoholism and an alcohol level was noted to be 73.3. I was consulted by Dr. Blevins regarding his persistent lower abdominal pain on palpation and complaint despite decompressing the bladder with Mehta catheter. PAST MEDICAL HISTORY: Significant for alcoholism and obviously cirrhosis. Review of his record shows that he was discharged from the hospital by Dr. Rush on July 17, 2020 with sepsis related to left upper extremity cellulitis, known alcohol dependence which resolved and hyponatremia in the past. He is known to have liver cirrhosis without ascites and mood disorder. His sister who accompanies him freely describes his chronic alcoholism, but believes that he takes other illicit drugs as well. Electronically Signed By: GLENYS KRISHNAN MD 02/07/21 1237 PATIENT NAME: SACHI HOLCOMB CONSULTATION DATE OF : 59 REPORT #: [id number] PHYSICIAN: GLENYS KRISHNAN MD PCP: [facility] REPORT IS CONFIDENTIAL AND NOT TO BE RELEASED WITHOUT AUTHORIZATION [facility] [address], [place] [address] Signed It is noted that I saw him in 2008, 11 years ago for bilateral pneumonia. REVIEW OF SYSTEMS: His complaint of pain is in the lower abdomen dominantly. He has no upper abdominal pain and no mid abdominal pain that he describes. PHYSICAL EXAMINATION: GENERAL: This is a very severely debilitated man who is in supine position. He does not have an IV running, having been in the ER for several hours. HEENT: Mucous membranes are markedly dry. Trachea is midline. CHEST: Shows no evidence of tachypnea. HEART: Regular. ABDOMEN: Obese, but soft. He has marked tenderness in the central low abdomen. This is more dominantly on the left side. He has no significant right upper abdominal or epigastric tenderness. He does not grossly have ascites. A caput medusa of the periumbilical area is faintly visible consistent with portal hypertension. EXTREMITIES: His lower extremities show chronic dermatitis type changes, no sign of cellulitis. LABORATORY STUDIES: Show white count of 7.6, hematocrit of 39.4 platelets as noted are "clumped." His coag studies show an INR of 1.4. Chem profile with creatinine of 0.66. Electrolytes are normal. Glucose of 104, bilirubin 3.6, calcium 7.8, AST 76, ALT 33, alkaline phosphatase 100, albumin 2.9, lipase 76. Alcohol level 73.3. Urinalysis without signs of urosepsis. I have reviewed the CT scan as well as the imaging report as well as the ultrasound that has been obtained. Findings were noted as above. ASSESSMENT: He does have a distended gallbladder with a single gallstone, but no sign of pericholecystic fluid or thickening of the gallbladder itself. He does not have epigastric or right subcostal tenderness particularly. His very distended bladder has essentially been decompressed with a Mehta catheter, though he has significant pain upon palpation in this area. Description is made by the radiologist of much of the small bowel to the right side of the abdomen, much of the colon to the left side of the abdomen. I do not see evidence of abscess nor sign of diverticular disease or mesenteric inflammatory change. There is no evidence of hydroureter. The cirrhotic changes of the liver are quite obvious. POrtal hypertension is manifest on the Ct and the clinical exam of the abdominal wall with a faint finding of caput medusa of the felicity umbilical area . The spleen is identified and does not look particularly enlarged. It is certainly larger than the kidney, consistent with portal hypertension. Electronically Signed By: GLENYS KRISHNAN MD 02/07/21 1237 PATIENT NAME: SAHCI HOLCOMB CONSULTATION DATE OF : 59 REPORT #: [id number] PHYSICIAN: GLENYS KRISHNAN MD PCP: [facility] REPORT IS CONFIDENTIAL AND NOT TO BE RELEASED WITHOUT AUTHORIZATION [facility] [address] [facility] [place] [address] Signed It appears unlikely that his problem is that of acute cholecystitis despite the hydropic gallbladder and single gallstones. His cirrhosis with nodular changes of the liver are significant, though he does not appear to have generalized ascites. I think it is unlikely that cholecystectomy would relieve his current symptoms. I have advised the nurse to start an IV with IV fluids, lactated Ringer's at 85 mL an hour. He appears to be clinically dehydrated. Lactate level would be appropriate as well. He may be advisable to have the hospitalist consult on this patient for further consideration of his current problem. I do not see signs of ischemic bowel, obstruction or sign of incarcerated hernia despite his better complaint of pain upon palpation of left lower and right lower abdomen. It is more likely this represents an issue related to his bladder. Rectal exam was performed, which shows a boggy nonenlarged prostate so far as can be told, which is nontender. Nevertheless, despite no obvious mass or enlargement, he clearly has some reason for bladder distention and other than a diagnosis of a neurogenic bladder, the most likely thing would be prostatic enlargement whether benign or malignant. I will review this further with Dr. Lewis. MD BERLIN Campbell/ELAINE /[id number] cc: [facility] Dr. Lewis. Copies: ~ Electronically Signed By: GLENYS KRISHNAN MD 02/07/21 1237 PATIENT NAME: KATHERINESACHI CONSULTATION DATE OF : 59 REPORT #: [id number] PHYSICIAN: GLENYS KRISHNAN MD [facility]CP: [facility] REPORT IS CONFIDENTIAL AND NOT TO BE RELEASED WITHOUT AUTHORIZATION
--- NOTE | 2021-02-07 14:13 | NUR ---
MED REC COMPLETE
--- NOTE | 2021-02-07 15:23 | NUR ---
PATIENT MEDICATED FOR PAIN THAT HE IS RATING 8/10 IN LOWER ABDOMEN STILL. PT ABLE TO TAKE PO LACTULOSE. AMMONIA LEVEL DRAWN FROM IV SITE AND SENT TO LAB. PT IS FAMILIAR WITH LACTULOSE AND STATES HE USED TO TAKE THIS AND PATIENT THEN STATES, "THAT MEANS I'LL BE UP ALL NIGHT SHITTING." DISCUSSED PLAN WITH PATIENT WHEN HE STARTS TO FEEL THE URGE TO HAVE A BM. IVF CONTINUE AT 50 ML/HR. PT STILL DRINKING LOTS OF WATER. WILL CONTINUE TO MONITOR.
--- NOTE | 2021-02-07 19:01 | NUR ---
PATIENT RESTING COMFORTABLY AT THIS TIME. PATIENT HAS TOLERATED HIS CLEAR LIQUIDS TONIGHT AND SEEMS TO BE RESTING BETTER. PATIENT STATES HIS PAIN IS BETTER WELL. HR REMAINS ELEVATED, 100s. LAST BP 108/59. REPORT TO STAMP PAD MAKER.
--- NOTE | 2021-02-07 21:00 | NUR ---
PATIENT WOKE EASILY TO VOICE. PATIENT IS SLIGHTLY DISORIENTED, EASILY REORIENTED. REPORTS PAIN 6/10 IN ABD. ASSISTED PATIENT TO THE BSC. LINENS CHANGED. PATIENT HAD DRANK HIS LACTULOSE PRIOR TO THIS. PATIENT BEGAN TO COUGH AND SPIT UP FLEM. PATIENT THAN BECAME NAUSEOUS AND DIZZY. VOMITING SEVERAL TIMES. PRN ZOFRAN AND SCHEDULED VALIUM PROVIDED. PATIENT RETURNED TO BED. ORAL TEMP 99.8F AND PATIENT DIAPHORETIC. PATIENT TURNED TO RIGHT SIDE. FALLS ASLEEP QUICKLY AFTER MED ADMINISTRATION. CALL LIGHT IN REACH. 3L NC IN PLACE.
--- NOTE | 2021-02-07 21:36 | NUR ---
PROVIDED UPDATE TO . NO NEW ORDERS.
--- NOTE | 2021-02-07 22:00 | NUR ---
PATIENT ATTEMPT TO EXIT BED. REPORTS NEED TO VOID. RASHID RN IN ROOM. REMINDS PATIENT OF WARD AND ASSIST HIM BACK INTO BED. PATIENT APPEARS TO BE SLEEPING WHEN RN ENTERS THE ROOM.
--- NOTE | 2021-02-07 23:26 | NUR ---
PATIENT SNORING LOUDLY. TITRATED TO 4L NC DUE TO DESAT TO 87%. CALL LIGHT IN REACH.
--- NOTE | 2021-02-08 03:31 | NUR ---
PATIENT RESTING IN BED. REMOVED O2 SAT PROBE. WEARING NC. SPOT CHECK 97% ON 4L WHILE AWAKE. PATIENT DENIES ANY NEEDS. CALL LIGHT IN REACH.
--- NOTE | 2021-02-08 05:51 | NUR ---
WARD EMPTIED. PATIENT WOKE WITH RN IN ROOM. DRINKING WATER. CALM AND RESTING. DENIES ANY NEEDS.
--- NOTE | 2021-02-08 07:30 | NUR ---
PATIENT SHIFT REPORT RECIEVED FROM PHYSICIAN OFFICE CLIN ASST RN. PATIENT IS RESTING IN BED. PER REPORT PATIENT HAS SLEPT OFF/ON THROUGH THE NIGHT. NO BOWEL MOVEMENT IN THE NIGHT. BED ALARM ON FOR PATIENT SAFETY.
--- NOTE | 2021-02-08 08:30 | NUR ---
THIS RN IN TO DO AM ASSESSMENT. PATIENT IS RESTING IN BED WITH EYES OPENED. PATIENT IS ALERT TO NAME AND PLACE, BUT FORGETFUL ABOUT DATE AND TIME. PATIENT REPORTS PAIN 5/10 IN LOWER RIGHT QUAD ABD. PATIENT REPROT THIS IS BETTER THAN WHEN HE FIRST CAME IN. PATIENT NOTED TO HAVE RASH ACROSS ABD. VITALS STABLE. PATIENT HAS NOT HAD A BM. WILL CONTINUE TO CLOSELY MONITOR.
--- NOTE | 2021-02-08 09:25 | NUR ---
RASCH IN TO SEE PATIENT. PATIENT RESTING AT THIS TIME. UPDATED MD ON ASSESSMENT THIS AM. SEE NEW ORDERS.
--- NOTE | 2021-02-08 10:45 | NUR ---
THIS RN IN TO START NEXT ABX. PATIENT RESTING IN BED. PATIENT COMPLAINING OF BEING HOT. TURNED ROOM TEMPERATURE DOWN FOR PATIENTS COMFORT. NO OTHER NEEDS AT THIS TIME. WILL CONTINUE TO CLOSELY MONITOR.
--- NOTE | 2021-02-08 11:45 | NUR ---
PATIENT RESTING IN BED. ASSISTED PATIENT UP TO BEDSIDE CAMMODE. PATIENT PASSED GAS BUT NO BM. BED BATH PROVIDED AT THIS TIME. FACE AND HANDS WASHED. WARD CATH CARE DONE. NEW CATHETER APPLICATOR APPLIED TO HOLD CATHETER IN PLACE. NEW ELECTRODES APPLIED. PATIENT HAD AN EPISODE OF NAUSEA WITH ACTIVITY, BUT NO EMESIS. GAVE PRN ZOFRAN FOR NAUSEA. PATIENT RESTING BACK IN BED. LINEN WAS CHANGED AND CLEAN GOWN PROVIDED. NO OTHER NEEDS AT THIS TIME. WILL CONTINUE TO CLOSELY MONITOR. BED ALARM ON FOR PATIENTS SAFETY.
--- NOTE | 2021-02-08 13:00 | NUR ---
TOREY BED ALARM GOING OFF. PATIENT WOKE AND WAS CONFUSED TO WHERE HE WAS. REORIETED TO PLACE. PATIENT STATES "OWH YA, IM HERE CAUSE I WAS SICK WITH MY BELLY PAIN". PATIENT ASSISTED BACK TO BED AND LAYING DOWN RESTING AT THIS TIME. BED ALARM ON FOR PATIENT SAFETY. WILL CONTINUE TO CLOSELY MONITOR.
--- NOTE | 2021-02-08 14:58 | NUR ---
PATIENT ALERT TO SELF, PLACE, AND SITUATION AT THIS TIME. PATIENT UNAWARE OF DATE AND TIME. PATIENT GETS CONFUSED/FORGETFUL ABOUT SIMPLE THINGS LIKE WHERE HIS PANTS ARE AND WHY HE ISNT WEARING ANY. PATIENT REORIENTED TO SITUATION. PATIENT RESTING IN BED AT THIS TIME. BED ALARM ON. CALL LIGHT IN REACH. WILL CONTINUE TO CLOSELY MONITOR.
--- NOTE | 2021-02-08 17:00 | NUR ---
BLOOD CULTURES DRAWN PER NEW ORDERS BY THIS RN. PATIENT TOLERATED WELL. WILL GET A URTINE SAMPLE PER ORDERS. PATIENT HAS MOMENTS OF FORGETFULNESS, BUT IS EASILY RE-ORIENTABLE. REMINDED PATIENT OF CALL LIGHT AND TO CALL IF HE NEEDS ASSISTANCE OR TRYING TO GET UP. BED ALARM ON. WILL CONTINUE TO CLOSELY MONITOR.
--- NOTE | 2021-02-08 18:20 | NUR ---
UPDATED MD VENCES THAT PATIENT IS COMPLAINING OF A HEADACHE AND ONLY HAVE MORPHINE TO GIVE PATIENT. SEE NEW ORDER FOR TYLENOL. WILL HOLD 1800 LACTULOSE D/T GIVING OTHER DOSE AT 1700. SEE ORDERS. WILL CONTINUE TO CLOSELY MONITOR. BED ALARM ON FOR PATIENT SAFETY.
--- NOTE | 2021-02-08 18:47 | NUR ---
THIS RN IN TO GIVE TYLENOL PER MDS ORDER. PATIENT TOLERATED WELL AND NOW RESTING BACK IN BED. BED ALARM ON FOR PATIENTS SAFETY. REPOSITIONED PATIENT IN BED. WILL CONTINUE TO CLOSELY MONITOR.
--- NOTE | 2021-02-08 19:36 | NUR ---
patient resting in bed. used call light to request a warm blanket which was provided. oral temp wnl.
--- NOTE | 2021-02-08 20:03 | NUR ---
patient up to bsc to have bm. passed large amount of gas but no stool. patient took himself back to bed. assisted in situating the covers and checking hernandez, no signs of injury. patient denied other needs. call light in reach.
--- NOTE | 2021-02-08 20:15 | NUR ---
PROVIDED PATIENT WITH EVENING MEDS. PATIENT IS MORE ALERT THAN PREVIOUS NIGHT. ABLE TO HOLD CONVERSATIONS AND IS ORIENTED TO PERSON, PLACE AND TIME. PATIENT HAS BEEN USING CALL LIGHT. IS NOT HAPPY ABOUT LACTULOSE TREATMENT, DISCUSSED NEED DUE TO ELEVATED AMMONIA. PATIENT IS AGREEABLE AND TAKES MEDS ORDERED. STATES HIS PAIN IS "FINE" BUT HEADACHE CONTINUES. PATIENT BELEIVES HE NEEDS TO SLEEP TO HELP. LUNG SOUNDS ARE CLEAR. 3L NC PLACED FOR SLEEP. VS STABLE. ORAL TEMP WNL. WARD DRAINING ADEQUATE URINE, BILIRUBIN COLORED. IV SITES WNL, SL. DIMMED LIGHT AND REMINDED PATIENT TO CALL FOR ANY NEEDS.
--- NOTE | 2021-02-08 21:00 | NUR ---
PATIENT VOMITING, TOTAL 300 MLS. PRN ZOFRAN PROVIDED AND WET WASH CLOTH. PATIENT FELT BETTER AND THIS. REPORTS HE THINKS IT WAS THE JELLO.
--- NOTE | 2021-02-08 21:30 | NUR ---
PATIENT UP TO THE BATHROOM. VERY UNSTEADY ON HIS FEET. LARGE LIQUID BM. LINENS CHANGE AND FRESH GOWN PROVIDED. PATIENT BACK TO BED. CALL LIGHT IN REACH. WARD EMPTIED.
--- NOTE | 2021-02-08 22:07 | NUR ---
PATIENT UP TO BSC. HAD VERY LARGE BM. REPORTS FEELING ABD RELIEF. ASSISTED WITH CLEANING AND THEN BACK TO BED.
--- NOTE | 2021-02-08 22:28 | NUR ---
PATIENT UP TO BSC TO HAVE MEDIUM LOOSE STOOL. PATIENT CALL FOR ASSISTANCE TO GET UP BUT ATTEMPTED TO PUT HIMSELF BACK IN BED. hernandez stretched tight and patient pulling on leads. encourahed patient to leave leads in place and education about hernandez provided. patient is not receptive to this education.
--- NOTE | 2021-02-08 22:54 | NUR ---
patient exit the bed without assistance. patient is unsteady. again had hernandez pulled tight and was pulling on it. hernandez removed to prevent injury. patient is agitated with cords and refused to have pulse ox or labor arbitrator in place. assisted with new attends. patient had small bm. patient back in bed. discussed risk for bleeding with low platlets and encouraged patient to call for assistance. patient agrees he will.
--- NOTE | 2021-02-08 23:32 | NUR ---
patient out of bed without assistance. attempting to exit the room to "go eat some apples outside". attempt to reorient. patient is agitated. prn valium provided for CIWA greater than 8. patient now on the monitor and in bed snoring. vs stable.
--- NOTE | 2021-02-09 00:13 | NUR ---
PATIENT APPEARS TO BE SLEEPING SOUNDLY. VS STABLE. RR 20. O2 SAT 98% ON 4L NC, WAS DESATTING ON ROOM AIR AND 2L WHILE SLEEPING. BED ALARM ACTIVE.
--- NOTE | 2021-02-09 00:55 | NUR ---
PATIENT OUT OF BED WITHOUT CALLING TO USE BSC. STAFF ASSISTED PATIENT TO THE BSC. CHANGED ATTENDS AND NANY PAD ON BED. PATIENT IS MORE COOPERATIVE THIS TIME AND FOLLOWS INSTRUCTIONS. SMALL LIQUID BM. PATIENT BACK IN BED. CALL LIGHT IN HAND. REMINDED PATIENT TO CALL FOR ASSISTANCE.
--- NOTE | 2021-02-09 01:30 | NUR ---
PATIENT OUT OF BED WITHOUT ASSISTANCE. PATIENT ASSISTED TO THE BATHROOM. HAD ANOTHER LOOSE STOOL. PATIENT QUESTIONING IF HE IS AT [facility]. PATIENT REORIENTED. PATIENT REMEMBERS BEING GIVEN THE LACTULOSE AND IS UPSET ABOUT THE FREQUENT BMs. DISCUSSED PLAN OF CARE. PATIENT FOLLOWING INSTRUCTIONS. BACK IN BED. REMINDED TO USE CALL LIGHT. PATIENT AGREES.
--- NOTE | 2021-02-09 02:27 | NUR ---
PATIENT OUT OF BED WITHOUT ASSISTANCE. DISORIENTED TO SURROUNDINGS AND AGITATED. ASSISTED BY DRY KILN LOADER BACK TO BED. PRN VALIUM PROVIDED. PATIENT ON THE MNITOR. 4L NC IN PLACE. BED ALARM ACTIVE. UPDATE GIVEN TO .
--- NOTE | 2021-02-09 04:03 | NUR ---
PATIENT CONTINUES TO BE RESTLESS. EXITING THE BED FREQUENTLY AND BEING DISORIENTED. PRN VALIUM PROVIDED.
--- NOTE | 2021-02-09 05:15 | NUR ---
patient out of bed to go home, redirected into bed. warm blanket provided. patient denied need to void. encouraged patient to call for assistance.
--- NOTE | 2021-02-09 06:00 | NUR ---
patient up to bsc without calling. assisted patient to changed his attends. he had a medium loose stool and was cooperative with care. assisted back into bed. patient oriented to self only at this time.
--- NOTE | 2021-02-09 06:33 | NUR ---
patient up out of bed use bsc. small liquid bm. patient is oriented to self and the hospital but does not use call light. reminded patient to call for safety. bed alarm active. patient requesting breakfast.
--- NOTE | 2021-02-09 07:30 | NUR ---
REPORT RECIEVED. PATIENT OOB STANDING AT BEDSIDE. REDIRECTED TO BED. DENIES ABD PAIN, SHORTNESS OF BREATH,NAUSEA,IV SITES X 2 INTACT. TALEKED WITH PATENT ABOUT DX OND POC FOR DAY.
--- NOTE | 2021-02-09 08:00 | NUR ---
ASSESSMENT DONE. ECHO TO BE DONE AT BEDSIDE.
--- NOTE | 2021-02-09 08:24 | NUR ---
pt. keeps getting out of bed. bed alarm goes off. loader helper went in the help pt. no other needs at this time
--- NOTE | 2021-02-09 08:30 | NUR ---
REFUSING LACTALOSE. EXPLAINED REASONS TO WHY HE NEEDS THIS MEDICATION. CONTINUE TO REFUSE AFTER EDUCATION GIVEN.
--- NOTE | 2021-02-09 09:47 | NUR ---
TAKING CLEAR LIQUID DIET. ASKING FOR FOOD. TALKED WITH PATIENT ABOUT THIS. CONTINUES TO DENY ABD PAIN.
--- NOTE | 2021-02-09 11:00 | NUR ---
pt used call light, said he needed to pee. fashion consultant sales got up to commode and urinal but decided he didn't have to. pt got back in bed
--- NOTE | 2021-02-09 11:30 | NUR ---
TO CHAIR, CHAIR ALARM ON.HAS UNSTEADY GAIT. NEEDS ASSIST WITH AMBULATION.
--- NOTE | 2021-02-09 13:20 | NUR ---
TRANSFER ORDERS RECIEVED.
--- NOTE | 2021-02-09 13:20 | NUR ---
SLEEPING IN BED. O2 SAT ON RA-95, WILL DESAT OCC TO <90, THEN BACK UP TO ABOVE 90.
--- NOTE | 2021-02-09 13:37 | NUR ---
PT IN BED, RM DIM. PT ACKNOWLEDGES MY PRESENCE, THANKS ME FOR COMING IN. PT ADMITS HE IS IN PAIN, PT SEEMS TO HAVE A LITTLE DIFFICULTY SPEAKING. VOLUME IS RATHER LOW, BUT CLEAR. PT EXPRESSED CONCERN THAT HE IS HAVING HE SAID "HEART ATTACK". HAD PRAYER WITH PT, LEFT G.POST AND BLESSING. INFORMED CCU STAFF OF PTS' CONCERN. WILL FOLLOW
--- NOTE | 2021-02-09 13:43 | NUR ---
SPOKE WITH PATIENT IN ROOM. PATIENT UP IN CHAIR. PATIENT HAS FLAT AFFECT WITH SPEAKING BUT KNOWS WHERE HE IS. WAS NOT ABLE TO TELL ME WHY HE WAS HERE. PATIENT STATES [place] L[place] AL[place] "[place] HE STATES HE HAS NO ONE TO HELP HIM AT HOME. PATIENT DENIES NEEDING TO GO TO FACILITY FOR HELP. PREFERENCE IS TO DISCHARGE HOME. DOES NOT WANT "PEOPLE COMING IN". PATIENT DENIES ETOH OR DRUG PROBLEMS. HE STATES HE DOES USE [facility] FOR PCP AND MEDS. HE DOES NOT DRIVE. STATES HIS SISTER MIGHT TAKE HIM HOME AT DISCHARGE. PATIENT ONLY WORRY FINANCIALLY IS "I NEED MORE FOOD". ASKED IF I CAN CALL [facility] TO SEE IF THEY CAN HELP WITH FOOD BOX, HE AGREES TO THIS. PATIENT DENIES USING DME. PATIENT STATES HE HAS HAD BOTH COVID VACCINES. PATIENT STATES HE HAS A CELL PHONE. CM WILL CONTINUE TO FOLLOW.
--- NOTE | 2021-02-09 14:00 | NUR ---
pt report from chas rn. 1410 pt to room 310 ms from lime sludge kiln operator - vitals taken, pt up in . oriented to room, menu, call light and rn. nauseated - 100 ml of yellow bile emisis. pt resolved and settled - repositioned in , c/o back discomfort - assessment completed.
--- NOTE | 2021-02-09 14:10 | NUR ---
SPOKE WITH CHRISTINE LUKE [facility]. ASKED IF SHE KNEW PATIENT AND SHE DOES KNOW OF HIM. SHE STATES HE DOES LIVE ALONE. SHE STATES HIS SISTER DOES TRY TO HELP HIM, BUT HE OFTEN IS STUBBORN ABOUT THESE THINGS. DISCUSSED HE IS CONCERNED ABOUT FOOD SECURITY. SHE STATES THEY DO HAVE A PROGRAM HE COULD QUALIFY FOR. SHE STATES TO TRY MARIS AT THE [facility] [phone]. CALLED THAT AND WAS TOLD MARIS IS OUT THE REST OF THE DAY. LEFT A MESSAGE FOR CALLBACK.
--- NOTE | 2021-02-09 15:46 | NUR ---
pt back in bed, alarm and call light on/in reach. visible to rn at desk.
--- NOTE | 2021-02-09 16:38 | NUR ---
pt standby assist unsteady gait to the chair - with alarm and call light.
--- NOTE | 2021-02-09 16:56 | NUR ---
returned call to pt sister - ashok snyder. she would like to talk to dc product planner. her number is on chart for them to call her re:placement. pt up to , restless, given po meds and apple juice. alarm on.
--- NOTE | 2021-02-09 16:59 | NUR ---
pt trsf to rm 310 from [facility]. pt confused, etoh withdrawl, takes po meds well, bed and ch alarm on. uses urinal - busy - not oriented due to withdrawl. sister would like to work with dc corporate meeting planner tomorrow, number on chart- Annelise.
--- NOTE | 2021-02-09 18:05 | NUR ---
PATIENT IN BED WATCHING TV. VITALS AND I&O'S CHARTED. BED ALARM ON. CALL LIGHT IN REACH. NO FURTHER NEEDS AT THIS TIME.
--- NOTE | 2021-02-09 19:15 | NUR ---
REPORT RECEIVED FROM TI PAYNE. pt RESTING IN BED. SBA WITH FUR STORAGE CLERK TO RESTROOM FOR BM. BACK IN BED. ALARM ON. PHONE CALL FROM FAMILY MEMBER AJITH MURPHY TRANSFERRED INTO ROOM PER pt TERRI.
--- NOTE | 2021-02-09 20:17 | NUR ---
BED ALARM SOUNDING. SBA TO RESTROOM, GAIT UNSTEADY, SHAKY. LOOSE BM AND UNMEASURED VOID NOTED. pt IS ORIENTED TO SELF ONLY. STATES "THAT BUS RIDE IN WAS BUMPY". REORIENTED PATIENT TO DATE, EVENT, LOCATION. pt FORGETFUL, CONTINUES TO STATED "I WONDER IF THEY WILL WAIT FOR US AT THE BOTTOM OF [place]". REORIENTATION PROVIDED. ASSESSMENT COMPLETE, NO TREMORS NOTED, pt DENIES HALLUCINATIONS, HEADACHE. TEMPERATURE 100.0 ORALLY. PRN ANXIETY MEDICATION ADMINISTERED, pt REQUESTING TO GET OUT OF HERE. CALL LIGHT IN REACH. BED ALARM PLACED.
--- NOTE | 2021-02-09 20:27 | NUR ---
ALARM SOUNDING. pt STANDING IN DOORWAY, SMILING. STATES "I NEED A BIC ANTISQUEAK CHALKER". REORIENTED TO NICOTINE PATCH ON SHOULDER, IN HOSPITAL. pt UNDERSTANDING. STATES "OH I DIDN'T KNOW, I'LL JUST HAVE TO GET A CIGARETTE WHEN I GET OUT OF HERE". DENIES ADDITIONAL NEEDS. BACK IN BED. ALARM IN PLACE. CALL LIGHT IN REACH.
--- NOTE | 2021-02-09 21:14 | NUR ---
pt UP OUT OF BED, SBA TO RESTROOM FOR BM, ATTENDS CHANGED, INCONTINENT OF LIQUID STOOL. pt BACK IN BED. PEPSI PROVIDED REQUESTED. CALL LIGHT IN REACH. CURTAIN OPEN FOR CLOSE VIEW FROM NURSES STATION.
--- NOTE | 2021-02-09 22:05 | NUR ---
NOTICED PT GETTING OUT OF BED. HE SAID HE WAS "GOING TO BED", INDICATED INTO THE BATHROOM. ASSISTED SBA BATHROOM, WHILE HE WAS STANDING TO PEE, HE LOST BALANCE BUT GRABBED THE GRAB BAR, WHILE THIS RN WAS STANDING BEHIND HIM. VOIDED LARGE AMOUNT UNMEASURED URINE. UNSTEADY BACK TO BED, COVERS PLACED. EYES CLOSED IMMEDIATELY.
--- NOTE | 2021-02-09 23:52 | NUR ---
BED ALARM SOUNDING, pt AGITATED, OUT OF BED, PULLING AT GREEN. pt SHAKY, GAIT UNSTEADY WITH AMBULATION. pt AMBULATING OUTSIDE ROOM LOOKING FOR A BATHROOM, NOT REDIRECTABLE. NC MACHINIST ABLE TO LEAD pt BACK INTO ROOM. PHONED, TELEPHONE ORDERS REPEATED BACK FOR PRN TRAZADONE X 1.
--- NOTE | 2021-02-10 00:36 | NUR ---
ALARM SOUNDING, pt OUT OF BED, ASSISTED TO RESTROOM, GAIT UNSTEADY. NO VOID OR BM IN TOILET. ATTENDS CHANGED, SMEAR OF BM IN ATTENDS. pt IN BED STATES "THE BABY CAN RIDE RIGHT THERE" REORIENTED TO LOCATION. TRAZADONE ADMINISTERED. LIGHTS OFF IN ROOM. BED ALARM ON.
--- NOTE | 2021-02-10 00:42 | NUR ---
pt SITTING UP IN BED, PICKING AT BLANKETS. STATES "I JUST NEED A TWELVE PACK. THE 5-0 MIGHT GET US." REORIENTATION PROVIDED. pt LAYS BACK DOWN IN BED. BED ALARM ON.
--- NOTE | 2021-02-10 01:16 | NUR ---
ALARM SOUNDING. pt ATTEMPTING TO GET OUT OF BED OVER SIDE RAIL. IV TUBING IN pt'S MOUTH, "pt STATES ITS MY CIGARETTE". PUFFING ON IV TUBING. NEW EXTENSION SET APPLIED TO IV, IV FLUSHED WNL. IV WRAPPED WITH COBAN. pt BACK IN BED AT THIS TIME AFTER MULTIPLE ATTEMPTS TO LEAVE ROOM. BED ALARM ON.
--- NOTE | 2021-02-10 01:35 | NUR ---
BED ALARM SOUNDING. pt SITTING UP AT SIDE OF BED STARING STRAIGHT AHEAD. pt STATES "I'M JUST WATCHING BRISON FISH". pt STICKS HAND OUT TO RN IF GRABBING SOMETHING, WHEN ASKED WHAT HE'S DOING STATES "I'M WAITING FOR YOU TO GIVE ME A BEER". pt REORIENTED TO HOSPITAL, CURSES, WANTS TO GO HOME TODAY. BED ALARM ON.
--- NOTE | 2021-02-10 02:00 | NUR ---
BED ALARM SOUNDING. PT GETTING UP WALKING. THIS RN TURNED ON LIGHT TO BATHROOM, PT WENT IN AND SAT ON THE TOILET WITH HIS ATTENDS ON, DID STAND UP AND PULL ATTENDS DOWN, SOILED. ONCE HE WAS DONE, HE HAS PEED ON THE FLOOR, BUT ALLOWED RN TO CHANGE HIS ATTENDS. THIS RN WASHED PT HANDS AFTER, ESCORTED PT BACK TO BED. BED ALARM PLACED. COVERS UP.
--- NOTE | 2021-02-10 02:18 | NUR ---
BED ALARM SOUNDING. PT GETTING UP. 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 ORIENTATED HIM TO ENVIRONMENT, HOWEVER, "FUCK I AM FISHING" HE SAID HE GOES THROUGH THE MOTION OF "REELING IN A FISH". THEN HE GOT UP AND WENT OVER TO THE COUCH AND ATTEMPTED TO CLIMB OUT THE WINDOW, ALL THE WHILE SAYING JOO THIS FUCK THAT. THEN TRIED TO CLIMB OVER THE SIDE OF THE COUCH VS TURNING AROUND. EVENTUALLY HE TURNED AROUND, THEN ATTEMPTED TO WALK OUT OF THE ROOM, HAVING NO IDEA WHERE HE IS AT. CONTINUED TO SAY JOO, I WANT A BEER. THEN LOOKED AT THE BED AND SAID THIS BED IS IT. CLIMBED INTO BED. BED ALARM PLACED, COVERS UP.
--- NOTE | 2021-02-10 02:43 | NUR ---
BED ALARM SOUNDING. pt OUT OF BED, WANDERING IN HALLWAY. SBA TO RESTROOM FOR UNMEASURED VOID. ESCORTED BACK TO BED, ALARM IN PLACE. LIGHTS OFF IN ROOM.
--- NOTE | 2021-02-10 03:10 | NUR ---
BED ALARM SOUNDING. pt WALKING AROUND ROOM, ATTEMPTING TO PUT BLANKET ON LEGS, "PUTTING MY SWEATS ON". EXPLAINED TO pt THAT IT WAS BLANKET "YOU'RE SO FULL OF SHIT". pt BACK IN BED, FADUMO LUKE FOR CHANGING BEDS ON HIM EVERY FEW SECONDS. pt NOW SPITTING IN BED. BED ALARM SET. WARM BLANKET PROVIDED.
--- NOTE | 2021-02-10 03:25 | NUR ---
BED ALARM SOUNDING. SUPERVISOR PLASTERING AND RN INTO ROOM. PT STANDING BY THE WHITE BOARD, RIPPED THE PEN ROLLE OFF THE WALL, ATTEMPTING TO PULL THE WHITE BOARD OFF THE WALL. NO IDEA WHERE HE IS AT. MUMBLING SOMETHING ABOUT BED. THIS SURVEY WORKERS SUPERVISOR SAID OH HERE IT IS, THE BED. HE CLIMBED ONTO THE BED. COVERED, BED ALARM PLACED.
--- NOTE | 2021-02-10 03:27 | NUR ---
BED ALARM SOUNDING, pt UP TO WHITEBOARD. RIPPED ERASER ROLLE OFF THE WALL. 3 RNS IN ROOM TO ATTEMPT TO GET pt BACK TO BED. NETWORK DESIGN ARCHITECT REMAINS IN ROOM. PHONE CALL TO , UPDATED ON pt AGITATION, PULLING ERASER ROLLE OFF WALL. NEW ORDERS REPEATED BACK.
--- NOTE | 2021-02-10 03:37 | NUR ---
pt LYING IN BED. SCHEDULED SEROQUEL ADMINISTERED. pt STATES "I JUST WANT A BEER DAMNIT". pt SWALLOWS PILLS WITH WATER. LYING ON LEFT SIDE. BED ALARM BACK ON. LIGHTS OFF IN ROOM.
--- NOTE | 2021-02-10 04:00 | NUR ---
BED ALARM SOUNDING. PT SITTING ON EDGE OF BED, UNAWARE OF HIS SURROUNDINGS, GETS UP, AND TRIES TO EXIT THE DOOR TO FIND THE BED. PUSHES THIS JAVA ARCHITECT OUT OF THE WAY, WALKS TOWARD ROOM 107, ENCOURAGED TO BE QUIET HE IS ENCOURAGED TO TURN AROUND. (THIS IS NOT THE FIRST TIME HE HAS LEFT HIS ROOM TO FIND HIS BED THIS SHIFT). ABLE TO GET PT BACK TO HIS ROOM, HE SAID HE WAS TIRED AND WANTED TO SLEEP. DID GET BACK INTO BED, COVERED, ALARMS PLACED.
--- NOTE | 2021-02-10 04:20 | NUR ---
BED ALARM SOUNDING. PT UP WALKING TO THE DOOR, SAYING HE NEEDS TO CHECK THE STEERS. ABLE TO REROUTE HIM BACK TO BED, AFTER TELLING HIM WHERE HE WAS AT. BACK TO BED, COVERED, AND ALARMS PLACED.
--- NOTE | 2021-02-10 05:16 | NUR ---
BED ALARM SOUNDING. PT TRYING TO SIT ON THE EDGE OF THE BED, HOWEVER, HE IS VERY SLOW MOVING, ABLE TO REPOSTION PT BACK TO BED, TELLING HIM IT IS BEDTIME. BED ALARM PLACED.
--- NOTE | 2021-02-10 05:29 | NUR ---
SWEET DOUGH MIXER IN ROOM FOR LAB DRAW. VSS, TEMPERATURE 100.2 ORALLY. ASSESSMENT COMPLETE AT THIS TIME, pt ONLY ORIENTED TO SELF. STATES "[place] [facility] BED ALARM SET FOR PATIENT SAFETY, pt AGREES TO TRY TO GET SOME SLEEP.
--- NOTE | 2021-02-10 05:38 | NUR ---
BED ALARM SOUNDING. PT CLIMBING OUT OF BED. WITH ASSIST OF CUSTOMER SERVICE SALES CONSULTANT, PT AMBULATED TO BATHROOM, SL UNSTEADINESS, AND PUSHING STAFF A BIT WHEN HE WAS REDIRECTED TO THE BATHROOM. SAT ON TOILET FOR SAFETY, XSMALL LOOSE STOOL, VOIDED. CLEAN ATTENDS APPLIED. CLEAN GOWN, WHICH WAS MET WITH RESISTANCE. BACK TO BED, REPOSITIONED, BED ALARM AND COVERS.
--- NOTE | 2021-02-10 06:05 | NUR ---
BED ALARM SOUNDING. pt OUT OF BED, REMOVES GOWN, STATES "I HAVE TO GO TRIM THE HORSES". "JERI BRING ME THAT [employer] BAG". BAG PROVIDED, pt PUTTING BLANKETS IN BAG. RN IN ROOM MONITORING pt AT THIS TIME GAIT UNSTEADY, pt FORGETFUL, NOT ORIENTED TO CURRENT SITUATION, LOCATION. REORIENTATION PROVIDED.
--- NOTE | 2021-02-10 07:06 | NUR ---
REPORT RECEIVED FROM TI HENRIQUEZ. PT AGITATED AND ATTEMPTING TO GET UP IN HERNANDEZ. PT UNSTEADY ON FEET. SOILS SELF WITH URINE. TANYA CARE PROVIDED, NEW SCRUB PANTS IN PLACE. PT GUIDED BACK TO BED. COFFEE PROVIDED PER PT REQUEST. PT USING OBJECTS IN ROOM TO TRY TO SMOKE INCLUDING SHEETS, PLASTIC STRAW, AND FINGERS. PT DENIES HEADACHE AND NAUSEA. PT DISORIENTED TO PLACE AND SITUATION, PT KNOW MONTH BUT NOT YEAR OR TIME OF DAY. PT PARIONOID STATING "THOSE PEOPLE KNOW ME" AND BECOMES INCREASING AGITATED WHEN THIS STATEMENT IS REPEATED BACK TO HIM STATING "DON'T SAY IT OUTLOUD, THEY CAN HEAR YOU." CIWA SCORE OF 12. PT HALUCINATING STATING "THAT BULL IS EATING THE BABY." PT POINTS TO END OF BED AND CONTINUES TO REPEAT STATMENT. THIS RN AT BEDSIDE FOR 1:1 OBSERVATION AND ASSISTANCE WITH CARES.
--- NOTE | 2021-02-10 07:19 | NUR ---
DR. VENCES CALLED AND UPDATED ON PTS STATUS, AGITATION AND HALLUCINATIONS. MD STATES TO GIVE PTS SEROQUEL NOW, 25MG GIVEN PER MD ORDER. PT CONTINUES TO BE AGITATED, PACING IN ROOM. ASKING QUESTIONS ABOUT COUGERS. THIS RN REMAINS AT BEDSIDE WITH PT.
--- NOTE | 2021-02-10 07:38 | NUR ---
MORNING ASSESSMENT AND MEDICATION DUE. BONG FROM SECURITY ARRIVED TO BEDSIDE. PT UP TO CHAIR, TELEVISION ON. PT DISCUSSING LOGGING WITH BONG. QUESTIONS AND ANSWERS OCCATIONALLY OUT OF PLACE IN THE CONVERSATOIN. PT REPORTS PAIN "EVERYWHERE." PT IS UNABLE TO RATE PAIN OR FURTHER CLAIFY WHERE PAIN. FLACC SCORE OF 3. TACHYCARDIA NOTED. PT AFEBRIAL AT THIS TIME. PT CONTINUES TO BE DISORIENTED TO PLACE, EVENTS, SURROUNDINGS AND TIME. PT UNSTEADY ON FEET WHEN WALKING. GENEVA NOTED, PUPILS AT 2MM. LEFT PUPIL NOTED TO BE OFF CENTER IN PTS IRRIS. LUNGS SOUNDS CLEAR, UPPER AIRWAY CONGESTION NOTED. PT CLEARING THROAT, OCCATIONAL COUGH NOTED. SPUTUM QUANTITY AND QUALITY UNKNOWN. MEDICATIONS GIVEN. PT COMPLIANT WITH TAKING MEDICATIONS. PT REMAINS UP TO CHAIR AT THIS TIME. SECURITY REMAINS AT BEDSIDE. LINENS CHANGED.
--- NOTE | 2021-02-10 08:21 | NUR ---
BONG CALLED THIS RN TO ROOM, PT HAS PULLED OUT HIS IV. PT ATTEMPTING TO STAUNCH BLEEDING WITH HIS GOWN. GAUZE AND COBAN APPLIED. PRESSURE APPLIED. BLEEDING STOPS IN LESS THAN 2 MINUTES. PTS ARM CLEANED. PT DECLINES NEW GOWN. LINENS CHANGED. IV ABX INFUSION INFUSING THROUGH LEFT AC IV. NO ADDITONAL REQUESTS OR COMPLAINTS. PT UP TO CHAIR. DROWYS, DOZING ON AND OFF, MILD SNORING NOTED. BONG, SECURITY REMAINS AT BEDSIDE WITH PT.
--- NOTE | 2021-02-10 08:30 | NUR ---
PT CONTINUES TO BE AGITATED, REQUESTING CIGARETTS. "I NEED TO SMOKE NOW!" ANEUDY ALFONSO ORDERED. PROVIDED FOR PT. PT UP TO CHAIR. IV ABX COMPLETE. IV FLUSHED AND SALINE LOCKED. BONG, SECURITY REMAINS AT BEDSIDE WITH PT.
--- NOTE | 2021-02-10 08:50 | NUR ---
THIS RN TO ROOM TO CHECK ON PT. PT DOZING IN CHAIR WITH EYES CLOSED. RESPIRATIONS EVEN AND UNALBORED. BONG, SECURITY, LEAVING BEDSIDE. THIS RN AT BEDSIDE FOR 08/22 OBSERVATION.
--- NOTE | 2021-02-10 09:15 | NUR ---
PAULIE, SECURITY, TO BEDSIDE FOR 1:1 OBSERVATION. PT CONTINUES TO REST WITH EYES CLOSED UP TO CHAIR. RESPIRATIONS EVEN AND UNLABORED. PT TALKING IN HIS SLEEP, GIANLUCA HUGHES. PAULIE AT BEDSIDE. CALL LIGHT WITHIN REACH. CHAIR ALARM ON.
--- NOTE | 2021-02-10 10:00 | NUR ---
Pt sleeping soundly following seroquel. Attempted to call sister, Annelise, for dc plan. Was able to speak with cousin Yulia. Family would like pt to be placed in and SNF. Updated, pt has declined this. They would like a family member to check on him daily. They are concerned as they state he is a heavy drinker and has run off all his family members who would care for him.
--- NOTE | 2021-02-10 10:24 | NUR ---
NEW ORDERS PLACED MY MD. PT UPDATED ON NEW ORDER. STAND BY ASSIST UP TO RESTROOM. PT UNSTEADY ON FEET. PT UNABLE TO VOID AND NO BOWEL MOVEMENT NOTED AT THIS TIME. STAND BY ASSIST UP TO WHEELCHAIR. THIS RN TO X-RAY WITH PT, PAULIE FROM SECURITY ALSO ACCOMPANING PT. PT TOLERATES 2 VIEW X-RAY WELL. COMPLIANT WITH CARES. PT BACK TO ROOM. 2ND IV STARTED IN LEFT HAND PER PROTOCOL, BRISK BLOOD RETURN NOTED. BLOOD CULTURES DRAWN AND SENT TO LAB WITH IV START (15ML BLOOD DRAW). IV IN LEFT HAND SALINE LOCKED AT THIS TIME. 2ND SET OF BLOOD CLUTURES DRAWN FROM LEFT AC IV (10ML BLOOD DRAW, NO WASTE PERFORMED). IV FLUSHED AND IV ABX STARTED. PT CLAM AND RESTING WITH EYES CLOSED THROUGHOUT BLOOD DRAW. AWAKENS TO VOICE AND LIGHT TOUCH. PT CONTINUES RESTING WITH EYES CLOSED. BED RAILS UP. BED ALARM ON. PAULIE FROM SECURITY AT BEDSIDE. CALL LIGHT WIHTIN REACH.
--- NOTE | 2021-02-10 11:29 | NUR ---
NOON ASSESSMENT DUE. PT RESTING WITH EYES CLOSED. RESPIRATIONS EVEN, MILD SNORING NOTED. PT AWAKES TO SHAKE AND LOUD VOICE. PT CONTINUES TO BE DISORIENTED TO PLACE, SITUATION AND TIME. PT FALLS BACK TO SLEEP BETWEEN QUESTIONS. PUPILS NOTED TO BE PINPOINT. PT DOES NOT FOLLOW PEN WITH EYES, FALLS ASLEEP QUICKLY. VITAL SIGNS STABLE. UP TO RESTROOM OFFERED, PT DECLINES. DEPENDS DRY AT THIS TIME. PT ALLOWED TO CONTINUE RESTING. BED RAILS UP. BED ALARM ON. CALL LIGHT WITHIN REACH. ROOM NEAR NURSES STATION FOR SAFETY.
--- NOTE | 2021-02-10 12:12 | NUR ---
PTS FRIEND, JARRED TO BEDSIDE. ASKS "WHAT IS GOING ON WITH HIM." PT CONTINUES SLEEPING WITH EYES CLOSED. DOES NOT CONFRIM THAT JARRED CAN BE UPDATED. JARRED NOT UPDATED AT THIS TIME. PT APPEARS COMFORTABLE. MILD SNORNING NOTED. NO ADDITIONAL REQUESTS OR COMPLAINTS. CALL LIGHT WITHIN REACH. BED RAILS UP. BED ALARM ON. ROOM NEAR NURSES STATION FOR SAFETY.
--- NOTE | 2021-02-10 12:30 | NUR ---
Spoke w male who states he is pts brother. He is asking if he can be the pts State paid cg. Info given on calling [facility] to complete paper work for submission. Phone number for [facility] given. Pt states he does not have a phone and asked if I can do this for him. Informed I cannot. Pt smells strongly of alcohol and states he is a felon and wants to know if the state will pay felons. Let him know, I do not know the rules, but he can call [facility] for questions. Ford Leiva is Chung friend. No cell phone or home phone. Received call from Ana Copeland stating she received a call from Ford, he did not leave a name of pt or phone number. UPdated to above info. She states she will need a phone number to call him back. Informed I will let him know if he returns to the hospital to call [facility].
--- NOTE | 2021-02-10 12:54 | NUR ---
PT CONTINUES RESTING WITH EYES CLOSED. PT OPENS EYES ONLY SIGHTLY WITH SHAKE AND VOICE. MEDICAITON WILL BE GIVEN ONCE PT IS ALERT ENOUGH TO TAKE MEDICATION SAFELY. RR = 18, MILD SNORNING NOTED. BED RAILS UP. BED ALARM ON. PTS FRIEND REMAINS AT BEDSIDE. ROOM NEAR NURSES STATION FOR OBSERVATION.
--- NOTE | 2021-02-10 13:00 | NUR ---
REPORT GIVEN TO TI PAYNE, WHO IS ASSUMING CARE OF PT WHILE THIS RN IS TRANSFERED TO ANOTHER DEPARTMENT. QUESTIONS ANSWERED.
--- NOTE | 2021-02-10 13:30 | NUR ---
Hossein sitting up in chair eating, he is drowsy, food falling down his chest. I again discussed placement with him and he strongly refuses placement and plans on dc to home. I let him know Ford was here and he declines for Ford to be in his home. He would like his son, Srinath, to check on him. Informed I will call Srinath and I have a left a message for his sister Annelise. Received message from Annelise, she is contacting [facility] to check on Hossein to take his meds. She requests a return call.
--- NOTE | 2021-02-10 13:55 | NUR ---
Pt heard calling out, this RN and GAS SUBSTATION OPERATOR in room. Unable to keep patient in bed, offered urinal, denies and yells expletives. Pt family in room assisting pt to walk to BR, unsteady gait, pt continues to push RN away and yell expletives. primary substance abuse counselor and sales supervisor notified, security and primary RN in room.
--- NOTE | 2021-02-10 14:00 | NUR ---
REPORT RECEIVED FROM TI PAYNE, THIS RN RETURNED TO UNIT. REPORT STATES PT WOKE UP SUDDENLY AND BEGAN TEARING AT LINES AND STATES "WHERE AM I!? WHY AM I HERE!?" PT AGITATED AND RUSHES TO RESTROOM. THIS RN TO ROOM. PT UP TO TOILET. SOFT BROWN FORMED BOWEL MOVEMENT AND 600 URINE NOTED IN TOIELT. PTS IV CATHETER ALSO NOTED IN TOILET WELL OBJECTS FROM THE ROOM (PEN, PAPER WORK..). SECURITY TO BEDSIDE. PT AGITATED AND PULLING AT CLOTHES. PT REPORTS HE WOULD LIKE TO TAKE A SHOWER. 1 PERSON ASSIST TO UNDRESS. 2 PERSON ASSIST UP TO SHOWER CHAIR. PT WAHSES SELF, NEEDS ASSISTANCE WITH SOAP, RINSING, DRYING AND DRESSING. TANYA CARE DONE. HAIR SHAMPOOED. PT DRESSED IN FRESH GOWN, DEPENDS, SOCKS, AND PANTS. 1 PERSON STAND BY ASSIST UP TO CHAIR, PT VERY UNSTEADY ON FEET. IV TO LEFT HAND REMAINS IN PLACE. DRESSING LOOSE, NEW DRESSING APPLIED. IF FLUSHES WELL, BLOOD RETURN NOTED. IV ABX STARTED. LACTULOSE GIVEN. PT EATING LUNCH UP TO CHAIR. PT DISORIENTED TO ALL BUT SELF. PT TRIES TO EAT NON FOOD OBJECTS ON TRY SUCH [place] AND WET WIPE. THIS RN REMAINS AT BEDSIDE FOR 1:1 OBSERVATION AND ASSISTANCE WITH CARES.
--- NOTE | 2021-02-10 14:09 | NUR ---
PATIENT WOKE UP, GOT AGGITATED AND OUT OF BED. TI POTTS IN ROOM TO HELP PATIENT TO BATHROOM. PATENT GOT TO BATHROOM, RN STANDING BY TO ASSIST. RN LEFT AND THIS CNE IN ROOM TO WAIT FOR PATIENT TO BE DONE. VISITOR NOW HERE AND IN BATHROOM TO HELP CALM PATENT DOWN, THIS CUSTOMER CARE PROFESSIONAL IN ROOM. VISITOR INFORMED THIS CUSTOMER CARE PROFESSIONAL THAT PATIENT PULLED IV OUT. THIS CUSTOMER CARE PROFESSIONAL IN BATHROOM TO WRAP LEFT ARM IV SIGHT WITH GAUZE AND COBAND AND CLEAN BLOOD UP, RN NOTIFIED. TI LANGFORD IN ROOM TO TAKE OVER AND HELP PATIENT IN SHOWER.
--- NOTE | 2021-02-10 15:00 | NUR ---
PT FINISHED WITH LUNCH. PT UP WITH SADE FROM PHYSICAL THERAPY. PT AMBULATES IN [place] WITH WALKER AND 1 PERSON ASSIT ( WELL IV POLE ASSISTANCE). PT UNSTEADY ON FEET WITHOUT WALKER. PT BACK TO ROOM AND UP TO RESTROOM. VOIDS AND HAS ANOTHER BOWEL MOVEMENT WITHOUT ISSUE. PT UP TO CHAIR. THIS RN AT BEDSIDE FOR 1:1 OBSERVATION AND ASSISTANCE WITH CARES. CHAIR ALARM ON. CALL LIGHT WITHIN REACH.
--- NOTE | 2021-02-10 15:40 | NUR ---
PT RESTING IN CHAIR WITH EYES CLOSED. RESPIRATIONS EVEN, MILD SNORNING NOTED. IV ABX INFUSION COMPLETE. IV SALINE LOCKED AT THIS TIME, ALCOHOL CAP APPLIED. THIS RN REMAINS AT BEDSIDE FOR 1:1 OBSERVATION AND ASSITANCE. CHAIR ALARM ON.
--- NOTE | 2021-02-10 15:56 | NUR ---
AFTERNOON ASSESSMENT DUE. PT RESTING IN CHAIR WITH EYES CLOSED. PT AWAKENS TO VOICE AND LIGHT TOUCH. PT ORIENTED ONLY TO SELF. PT STATES HE IS "AT MY HOUSE, [place]." PT IS ABLE TO FOLLOW DIRECTIONS. SPEACH CONTINUES TO BE GARBLED WITH OCCATIONAL INCOHERANT SENTENCES. PUPILS CONTINUE TO BE PINPOINT, PT DOES NOT TRACK PEN OR LIGHT, STATES "JUST LEAVE ME ALONE." LUNG SOUND CLEAR, UPPER AIRWAY CONGESTION AND COUGH CONTINUE. UNABLE TO ASSESS SPUTUM. MILD SNORE NOTED WHILE PT IS SLEEPING. HEART RATE WNL AT THIS TIME. BOWEL TONES HYPERACTIVE, BOWEL MOVEMENTS X2 THIS AFTERNOON. PT VERBALIZES UNDERSTANDING THAT THIS IS RELATED TO THE LACTULOSE. CIWA SCORE OF 7. PT RETURNS TO RESTING WITH EYES CLOSED. THIS RN REMAINS AT BEDSIDE. CALL LIGHT WITHIN REACH. ROOM NEAR NURSES STATION. CHAIR ALARM ON.
--- NOTE | 2021-02-10 16:40 | NUR ---
REPORT GIVEN TO TI PAYNE WHO IS ASSUMING CARE OF PT WHILE THIS RN IS MOVED TO ANOTHER UNIT. QUESTIONS ANSWERED.
--- NOTE | 2021-02-10 17:19 | NUR ---
PT HERE FOR BACTEREMIA AND METABOLIC ENCEPHALOPATHY. PT UP WITH STAND BY ASSIST AND FRONT WHEEL WALKER, UNSTEADY ON FEET. PT HALUCINATING THIS SHIFT AND CALLING OUT IN HIS SLEEP. TOLERATING REGULAR DIET WITH GOOD INTAKE WHEN AWAKE. MULTIPLE BOWEL MOVEMENTS THIS SHIFT. PT AGITATED THIS SHIFT, CIWA SCORES FROM 7-14. TREMORS NOTED AT TIMES. PT AGIATED AND IRRITABLE. PT PULLED 2 IV'S THIS SHIFT. NEW IV STARTED. IV ABX GIVEN SCHEDULED. PT COMPLIANT WITH TAKING MEDICATIONS. PT DROWSY THIS SHIFT WHEN NOT AGITATED. SHOWER THIS SHIFT. PT ORIENTED TO SELF THROUGHOUT SHIFT. PT CONSISTANTLY DISORIENTED TO PLACE, TIME, DATE, AND SITUATION. CHOUGH NOTED. LUNG SOUNDS CLEAR. CHEST X-RAY THIS SHIFT. MRI'S ORDERED. 2ND SET OF BLOOD CULTURES DRAWN AND SENT. SCHEDULED SEROQUEL GIVEN. FRIEND IN TO VISIT THIS SHIFT. PT VOIDING QUANTITY SUFFICIENT. DEPENDS IN PLACE. 1:1 OBSERVATION THROUGHOUT SHIFT. CHAIR/BED ALARM IN PLACE. PT DOES NOT USE CALL LIGHT.
--- NOTE | 2021-02-10 18:26 | NUR ---
PATIENT IN BED RESTING WITH EYES CLOSED AT THIS TIME. SECURITY WATCHING PATIENT 1:1. CALL LIGHT IN REACH.
--- NOTE | 2021-02-10 18:50 | NUR ---
REPORT RECEIVED FROM TI PAYNE. THIS RN ASSUMING CARE UNTIL SHIFT CHANGE HAND OFF. PT RESTING IN BED. HEAD OF BED ELEVATED TO 40 DEGREES. IV ABX INFUSION COMPLETE. IV SALINE LOCKED. BED RAILS UP. CALL LIGHT WITHIN REACH. BED ALARM ON. SECURITY AT BEDSIDE.
--- NOTE | 2021-02-10 19:00 | NUR ---
NEW ORDERS FROM DR VENCES. MEDICATIONS GIVEN. PT RESTING WITH EYES CLOSED, MILD SNORING NOTED. PT AWAKENS TO VOICE AND LIGHT TOUCH. PT TAKES MEDICATIONS WITHOUT ISSUE. PT REPOSITONED IN BED TO RIGHT SIDE. HEAD OF BED ELEVATED TO 35 DEGREES. REPORT GIVEN TO TI HENRIQUEZ WHO IS ASSUMING SHEET ROCK TAPER HELPER CARE OF PT. QUESTIONS ANSWERED. BED ALARM ON. SECURITY, ELIF, AT BEDSIDE.
--- NOTE | 2021-02-10 19:20 | NUR ---
REPORT RECEIVED FROM TI LANGFORD, LPN RN MARIA ELENA AND ANASTASIYA IN ROOM FOR CLOSE MONITORING. pt RESTING IN BED, EYES CLOSED, BREATHING UNLABORED. BED ALARM ON.
--- NOTE | 2021-02-10 20:00 | NUR ---
CHECKED ON pt. RESTING IN BED WITH EYES CLOSED, BREATHING UNLABORED. BED ALARM ON.
--- NOTE | 2021-02-10 21:00 | NUR ---
PATIENT WAS AWAKE. PATIENT HAD LOOSE BOWEL MOVEMENT IN BED. CHANGED BED LINEN GOWN CHUX. 2 PA PATIENT UP TO BEDSIDE COMMODE AND MORE LOOSE BOWEL MOVEMENT. PATIENT IS BACK IN BED. V/S AND I&O'S TAKEN AND RECORDED. BED ALARM ON FOR SAFETY.
--- NOTE | 2021-02-10 21:24 | NUR ---
pt SITTING UP IN BED RN ROUNDS, ATTEMPTS TO GET OUT OF BED, GENERALIZED WEAKNESS. INCONTINENT OF STOOL. ATTENDS, CHUX, AND LINENS CHANGED. 2PA TO BSC FOR SAFETY pt WEAK. ABLE TO FOLLOW COMMANDS, COOPERATIVE. ADDITIONAL BM IN BSC. pt BACK IN BED, ORIENTED TO PERSON, LOCATION, NOT TIME OF DAY, EVENT OR DATE. pt DROWSY. ASSESSMENT COMPLETE. LUNG SOUNDS CLEAR. pt DENIES ANY PAIN. GAIT UNSTEADY WITH AMBULATION, UNABLE TO USE WALKER SAFELY, WEIGHT DRIFTS BACKWARDS. EYES CLOSED AT THIS TIME. BED ALARM PLACED. CURTAIN OPEN FOR SAFE PATIENT MONITORING.
--- NOTE | 2021-02-10 22:30 | NUR ---
IV ANTIBIOTIC COMPLETE. pt RESTING IN BED WITH EYES CLOSED. BREATHING EQUAL AND UNLABORED. LIGHTS OFF IN ROOM. BED ALARM ON.
--- NOTE | 2021-02-11 00:15 | NUR ---
PATIENT RESTING QUIETLY, EYES CLOSED, RESPIRATIONS REGULAR AND EVEN, CALL LIGHT IN REACH, AND BED ALARM ON.
--- NOTE | 2021-02-11 00:46 | NUR ---
CHECKED ON pt. RESTING IN BED WITH EYES CLOSED, BREATHING EQUAL AND UNLABORED. BED ALARM ON.
--- NOTE | 2021-02-11 01:30 | NUR ---
pt YELLING OUT, RN AND MOTOR GENERATOR SET OPERATOR IN ROOM. 1PA TO STAND AT SIDE OF BED TO VOID IN URINAL. pt IMPULSIVE, WALKS OVER TO BSC WITHOUT WALKER DESPITE INSTRUCTION. pt SITS ON COMMODE WITH ATTENDS ON, IRRITABLE WITH RNS AT SIDE. PRN AGITATION MEDICATION ADMINISTERED. pt BACK IN BED, CAKE AND POP PROVIDED REQUESTED. BED ALARM ON.
--- NOTE | 2021-02-11 02:15 | NUR ---
IN pt ROOM FOR IV ANTIBIOTIC ADMINISTRATION. pt AWAKENS TO VOICE, IV SITE FLUSHED WNL. pt DRINKING SODA. BED ALARM ON. NO REQUESTS AT THIS TIME.
--- NOTE | 2021-02-11 02:34 | NUR ---
WARM BLANKET PROVIDED. SUP MEHDI WAS IN THE ROOM.
--- NOTE | 2021-02-11 03:05 | NUR ---
PT USED CALL LIGHT REQUESTED A "NURSE". SAID HE "SPILT HIS POP", WANTED CHOCOLATE ICE CREAM. CLEANED UP POP, REMINDED HIM OF THE CAKE AT BEDSIDE. HE TOOK BITE AND SAID DEEPTHI, AND ASKED FOR ICE CREAM ON TOP CAKE. LEFT CAKE WITH HIM TO EAT.
--- NOTE | 2021-02-11 03:30 | NUR ---
IV ANTIBIOTIC COMPLETE. IV SL WNL. pt AWAKE, DROWSY RESTING IN BED. ASKS THIS RN "HOW ARE YOU". CONVERSES WITH RN. pt CLOSING EYES AT THIS TIME. BED ALARM ON.
--- NOTE | 2021-02-11 04:11 | NUR ---
pt RESTING IN BED WITH EYES CLOSED. BREATHING UNLABORED. BED ALARM ON.
--- NOTE | 2021-02-11 06:24 | NUR ---
pt RESTED WELL THIS SHIFT. INCONTINENT OF STOOL X 1. 1PA TO BSC AND TO STAND TO USE URINAL FOR VOIDS. pt COOPERATIVE. ORIENTED TO PERSON, LOCATION. BED ALARM SET THROUGHOUT SHIFT. PRN SEROQUEL X 1. IV ANTIBIOTICS. pt DENIES ANY PAIN THIS SHIFT. MRI SCHEDULED FOR TODAY.
--- NOTE | 2021-02-11 06:45 | NUR ---
BED ALARM SOUNDING. PT CLIMBING OUT OF BED, NEEDING TO "PEE". SECURITY AND THIS RN INTO ROOM, W FWW PT WANTED TO WALK INTO THE BATHROOM, HOWEVER, LEGS WEAK AND SHAKY, PT PRIMARY INTO ROOM, PT COMPLAINED OF AN AUDIENCE TO USE THE URINAL. DID HOWEVER VOID WITH THE 3 OF US IN THE ROOM. FOLLOWED COMMANDS BACK INTO BED, SELF ADJUST POSITION. COMPLAINED OF HIS BACK HURTING, HOWEVER, ONCE IN BED AND COVERED, PT EYES CLOSED, RESTING. BED ALARM PLACED.
--- NOTE | 2021-02-11 07:06 | NUR ---
REPORT RECEIVED FROM TI HENRIQUEZ. PT RESTING IN BED WITH EYES CLOSED, MILD SNORING NOTED, RESPIRATIONS EVEN. BED RAILS UP. CALL LIGHT WITHIN REACH. BED ALARM ON. ROOM NEAR NURSES STATION FOR FREQUENT MONITORING.
--- NOTE | 2021-02-11 07:31 | NUR ---
Updated progress note sent to [facility] per request.
--- NOTE | 2021-02-11 07:52 | NUR ---
MORNING ASSESSMENT AND MEDICAITON DUE. THIS RN TO ROOM. PT RESTING IN BED WITH EYES CLOSED. PT BEGINS HAVING COUGHING FIT AND WAKES HIMSELF UP. HEAD OF BED ELEVATED. PT DISORITED TO PLACE AND EVENTS. PT REORIENTED AND FALLS BACK TO SLEEP QUICKLY. IV ABX INFUSION COMPLETE. IV FLUSHED AND SALINE LOCKED. DURING THESE ACTIVITIES PT FALLS BACK TO SLEEP AND BEGINS SNORING AGAIN. PT AWAKENS WITH VOICE AND LIGHT TOUCH. PT CONTINUES TO BE DISORIENTED TO PLACE AND EVENTS. 1 PERSON ASSIST WITH FWW UP TO RESTROOM. PT DOES NOT VOID OR HAVE BM. TACHYCARDIA NOTED WITH AMBULATION. SMALL BM NOTED ON DEPENDS. TANYA CARE PROVIDED BY THIS RN. FRESH DEPENDS IN PLACE. 1 PERSON ASSIST AND FWW UP TO CHAIR. PT NOW ABLE TO STATE WHERE HE IS BUT CONTINUES TO BE DISORIENTED TO EVENTS AND DATE, IS ABLE TO STATE MONTH, BUT NOT YEAR, DAY OR TIME. PT DENIES PAIN BUT STATES HE IS "SORE" PT STATES SORNESS IS IN HIS BACK AND STOMACH. PT UNABLE TO QUANTIFY OR QUALIFY PAIN ANY FURTHER. FLACC SCORE OF 2/10. GENERALIZED WEEKNESS NOTED. PT ALSO DROWSY BETWEEN CARES. PINPOINT PUIPLES CONTINUE. PT GENERALLY COMPLIANT WITH CARES AT THIS TIME. MEDICAITONS GIVEN (SEE MAR). PT REMAINS UP TO CHAIR, EATING BREAKFAST. PT DENIES ADDITIONAL REQUESTS OR COMPLAINTS. CALL LIGHT WITHIN REACH. CHAIR ALARM ON. ROOM NEAR NURSES STATION FOR FREQUENT OBSERVATION.
--- NOTE | 2021-02-11 07:56 | NUR ---
PT ASLEEP IN BED. WHITE BOARD UPDATED. CALL LIGHT WITHIN REACH.
--- NOTE | 2021-02-11 08:40 | NUR ---
Per Dr. Rush, pt has sepsis and will require 2 weeks on IP IV antibiotics.
--- NOTE | 2021-02-11 09:08 | NUR ---
CHAIR ALARM ALARMING. THIS RN TO ROOM. PT TRYING TO GET UP. PT STATES HE IS DONE WITH BREAKFAST AND WANTS TO GO BACK TO BED. 1 PERSON ASSIST WITH FWW BACK TO BED. PT UNSTEADY ON FEET, LEANING BACKWARDS. IV ABX STARTED. PO POTASSIUM GIVEN. PT RESTING ON LEFT SIDE WITH EYES CLOSED. RESPIRATIONS EVEN WITH MILD SNORING NOTED. BED ALARM ON. BED RAILSUP. CALL LIGHT WITHIN REACH.
--- NOTE | 2021-02-11 10:00 | NUR ---
Checked on pt and he is sleeping. Not awakened. Pending MRI.
--- NOTE | 2021-02-11 10:15 | NUR ---
PUMP ALARMING, INFUSION AND FLUSH COMPLETE. IV ASSESSED, WNL, FLUSHES EASILY. IV SALINE LOCKED PER PROTOCOL. PT CONTINUES RESTING WITH EYES CLOSED ON LEFT SIDE. RESPIRATIONS EVEN, MILD SNORING NOTED. BED RAILS UP. CALL LIGHT WIHTIN REACH. BED ALARM ON.
--- NOTE | 2021-02-11 10:45 | NUR ---
Notified by RN MRI has been cancelled.
--- NOTE | 2021-02-11 10:57 | NUR ---
PHYSICAL THERAPY REQUESTS ASSISTANCE TO WORK WITH PT. THIS RN TO ROOM. PT WAKES TO VOICE AND LIGHT TOUCH. PT ORIENTED TO SELF AND LOCATION. STATES HE IS IN THE HOSPITAL "BECUASE MY STOMACH HURTS." 1 PERSON ASSIST WITH FRONT WHEEL WALKER UP TO RESTOOM. PT VOIDS AND HAS MEDIUM BOWEL MOVEMEMENT. PT ENCOURAGED TO CHANGE HIS OWN UNDERWARE AND PERFORME TNAYA CARE, PT UNABLE TO PUT ON UNDERWARE INDEPENDANTLY. TANYA CARE PERFORMED BY THIS RN. DEPENDS CHANGED. PT UP TO AMBULATE IN [place] WITH GAIT BELT, FWW, AND 2 PERSON ASSIST X 1 SMALL LAP. PT BACK TO ROOM. PT DECLINES SHOWER AT THIS TIME. PT BACK TO BED. ICE WATER REFILLED. HEAD OF BED ELEVATED TO 20 DEGREES. PT DROWSY AND DRIFTS BACK TO SLEEP. BED RAILS UP. CALL LIGHT WITHIN REACH. BED ALARM ON.
--- NOTE | 2021-02-11 12:11 | NUR ---
LUNCH ARRIVED. THIS RN TO ROOM TO CHECK ON PT. PT CONTINUES TO REST WITH EYES CLOSED IN SUPINE POSITION WITH HEAD OF BED ELEVATED TO 20 DEGREES, MILD SNORNING NOTED. PT WAKES TO VOICE AND LIGHT TOUCH. 1 PERSON ASSIST WITH FWW UP TO CHAIR FOR LUNCH. PT DENIES PAIN AND NAUSEA. MEDICATIONS GIVEN (SEE MAR). PT DENIES ADDITIOANL REQUESTS OR COMPLAINTS. CALL LIGHT WIHTIN REACH. CHAIR ALARM ON. ROOM NEAR NURSES STATION FOR FREQUENT OBSERVATION.
--- NOTE | 2021-02-11 13:20 | NUR ---
PT FINISHED WITH LUNCH. 90% CONSUMED. PT REPORTS FEELING "REALLY FULL, LIKE A BIG BEAR." 1 PERSON ASSIST, FWW WALKER UP TO SHOWER. PT SHOWERS WITH ASSISTANCE FROM GEO GARCIA. SHAMPOO AND TANYA CARE DONE. DEPENDS, GOWN, AND SOCKS CHANGED. 1 PERSON ASSIST BACK TO BED. IV ASSESSED, WNL. IV ABX STARTED. PT RESTING ON LEFT SIDE WITH EYES CLOSED, MILD SNORING NOTED. HOB ELEVATED TO 15 DEGREES, PT BECOMES ARGUMENTATIVE WHEN HEAD IS FURTHER ELEVATED. BED ALARM ON. CALL LIGHT WITHIN REACH.
--- NOTE | 2021-02-11 14:00 | NUR ---
AFTERNOON ASSESSMENT DUE. PT RESTING IN BED IN SUPINE POSITION WITH EYES CLOSED. RESPIRATIONS EVEN, SNORING NOTED. PT AWAKENS TO VOICE. PT REPORTS PAIN "IN MY STOMACH" THAT WORSENS WHEN HEAD OF BED IS ELEVATED. PT DECLINES TO ALLOW HEAD OF BED TO BE ELEVATED. PT IS NOT ABLE TO RATE OR QUALIFY PAIN, FLACC SCORE OF 3. PT ORIENTED TO SELF, PLACE AND DATE. CONTINUES TO BE FOREGETFUL OF EVENTS. FOLLOW DIRECTIONS AND ANSWERES QUESTIONS APPROPRIATLY. SPEACH BECOMING MORE CLEAR. IV ABX CONTINUES TO INFUSE. LUNG SOUNDS CLEAR. OCCATIONAL COUGH NOTED. ABDOMEN MODERATLY DISTENDED. PT REPORTS FEELING "REALLY FULL" AND POINTS TO LOWER ABDOMEN WHEN ASKED ABOUT ABDOMINAL PAIN. BOWEL TONES NOTED. PT DENIES NAUSEA. PT RETURNS TO RESTING WITH EYES CLOSED. BED RAILS UP. CALL LIGHT WITHIN REACH. BED ALARM ON.
--- NOTE | 2021-02-11 14:15 | NUR ---
PUMP ALARMING, INFUSION AND FLUSH COMPELTE. IV SALINE LOCKED. PT CONTINUES RESTING WITH EYES CLOSED. SNORNING NOTED. BED RAILS UP. CALL LIGHT WITHIN REACH. BED ALARM ON.
--- NOTE | 2021-02-11 15:13 | NUR ---
THIS RN TO ROOM TO CHECK ON PT. PT RESTING IN BED IN SUPINE POSITON WITH HEAD OF BED ELEVATED TO 15 DEGREES. RESPIRATIONS EVEN, MILD SNORNING NOTED. BED RAILS UP. CALL LIGHT WITHIN REACH. BED ALARM ON. PT ALLOWED TO REST.
--- NOTE | 2021-02-11 15:57 | NUR ---
PT HERE FOR BACTEREMIA AND METABOLIC ENCEPHALOPATHY. PT UP WITH 1 PERSON ASSIST AND FRONT WHEEL WALKER TO CHAIR FOR MEALS, WITH PHYSICAL THERAPY, AND TO SHOWER THIS SHIFT. PT TOLERATING REGULAR DIET WITH GOOD INTAKE. PT COMPLIANT WITH CARES THIS SHIFT. PT ORIENTED TO SELF, PLACE AND DATE INTERMITTANTLY. LESS CONFUSED THIS SHIFT. ABDOMEN MODERATLY DISTENDED, PT REPORTS LOWER ABDOMINAL PAIN INTERMITTANTLY. LATULOSE DOSE DECREASED THIS SHIFT. IV ABX SCHEDULED. INTERMITTANT COUGH NOTED, SNORING NOTED W/SLEEP. BOWEL MOVEMENTS SOFT TO LOOSE. PT VOIDING QUANTITY SUFFICIENT. PT DOES NOT USE CALL LIGHT, BED/CHAIR ALARM IN PLACE.
--- NOTE | 2021-02-11 16:25 | NUR ---
BED ALARM SOUNDING. PT GETTING OUT OF BED, THIS RN TO ROOM. PT REPORTS HE NEEDS TO USE THE BATHROOM "BUT THEY ARE ALL FULL." PT REORIENTED TO PLACE AND EVENTS. PT VERBALIZES UNDERSTANDING. 1 PERSON ASSIST, FWW, UP TO RESTROOM. PT VOIDS 600ML FRED/ORANGE URINE AND HAS LOOSE BM. TANYA CARE DONE. DEPENDS CHANGED. 1 PERSON ASSIST UP TO CHAIR. MEDICATIONS GIVEN. PT DENIES PAIN AND NAUSEA. PT DENIES ADDITIONAL REQUESTS OR COMPLAINTS. CALL LIGHT WIHTIN REACH. CHAIR ALARM ON. ROOM NEAR NURSES STATION FOR EASY MONITORING.
--- NOTE | 2021-02-11 16:35 | NUR ---
COUGHING EPISODE: PT BEGINS COUGHING WHILE SWALLING WATER AND PILLS. LARGE COUGHING EPISODE. REPOSITIOINING AND SUCTION NEEDED TO HELP PT CLEAR THROAT. PT ABLE TO TALK NORMALL AGAIN. NEURO ASSESSMENT UNCHANGED. PT TALKING WITH FRIEND ON PHONE. CHAIR ALARM ON. CALL LIGHT WIHTIN REACH.
--- NOTE | 2021-02-11 17:24 | NUR ---
DINNER ARRIVED. PT AWAKENS FOR DINNER. PT REMAINS UP TO CHAIR TO EAT. IV ASSESSED, WNL. IV ABX STARTED (SEE MAR). PT DENIES ADDITIONAL REQUESTS OR COMPLAINTS. CALL LIGHT WITHIN REACH. CHAIR ALARM ON.
--- NOTE | 2021-02-11 17:43 | NUR ---
PT WAVES AT STAFF FOR HELP. THIS RN TO ROOM. PT STATES HE WANTS TO GET BACK TO BED AND IS TOO FULL TO KEEP EATING. PT ABLE TO EAT 50% OF DINNER. PT COMPLIANT WITH CARES, RESPECTFUL AND FOLLOWING DIRECTIONS WELL. 1 PERSON ASSIST, FWW BACK TO BED. PT REFUESES TO HAVE HEAD OF BED ELEVATED "IT'S BAD FOR MY BACK." EDUCATION DONE. PT CONTINUES TO DECLINE. PT REMAINS IN SUPINE POSITION. VITAL SIGNS STABLE. NO ADDITIONAL REQUESTS OR COMPLAINTS. BED RAILS UP. CALL LIGHT WIHTIN REACH. BED ALARM ON.
--- NOTE | 2021-02-11 18:31 | NUR ---
THIS RN TO ROOM TO CHECK ON PT. PT RESTING IN BED WITH EYES CLOSED. RESPIRATIONS REGULAR WITH, SNORING NOTED. PUMP ALARMING, INFUSION AND FLUSH COMPLETE. IV ASSESSED, WNL, SALINE LOCKED AT THIS TIME. BED RAILS UP. CALL LIGHT WITHIN REACH. BED ALARM ON. PT ALLOWED TO REST.
--- NOTE | 2021-02-11 19:35 | NUR ---
BED ALARM SOUNDING. pt ATTEMPTING TO SIT UP IN BED. 1PA WITH FWW, pt USING WALKER CORRECTLY, GAIT UNSTEADY. TI PABLO NOW IN ROOM FOR CLOSE MONITORING.
--- NOTE | 2021-02-11 20:03 | NUR ---
PATIENT UP TO THE BATHROOM AND BACK TO BED 1PSBA AND FWW. PATIENT HAD LARGE LIQUID STOOL AND VOIDED WELL.PATIENT HAVING 5/10 ABD PAIN AFTER AMBULATION WILL MONITOR NOW PATIENT IS BACK TO BED. CALL LIGHT IS IN REACH, WATER GLASS FULL, BED ALARM IS ON.
--- NOTE | 2021-02-11 22:10 | NUR ---
PATIENT RESTING QUIETLY, RESPIRATIONS REGULAR AND EVEN WITH A SLIGHT SNORE, EYES CLOSED, CALL LIGHT IN REACH, AND BED ALARM ON.
--- NOTE | 2021-02-11 23:00 | NUR ---
IV PUMP ALARMING DISTAL OCCLUSION, TUBING KINKED. IV ANTIBIOTIC NOW INFUSING WNL. pt AWAKE, CONVERSING, PLEASANT, COFFEE PROVIDED REQUESTED. BED ALARM ON.
--- NOTE | 2021-02-12 02:00 | NUR ---
PATIENT PULLED HIS IV APART. NEW PIGTAIL PLACED WITH NEW DRESSING AND IV REMAINS INTACT AND FLUSHES AND DRAWS WELL. PATIENT UP TO THE BATHROOM AGAIN 1PA AND FWW AND BACK TO BED. PATIENT HAS HAD HIS 3RD INCONTINENT STOOL ATTENDS SO FAR TONIGHT. NEW ATTTENDS IN PLACE. CALL LIGHT IN REACH. BED ALARM IS ON. PATIENT CAN BE VISUALIZED FROM THE NURSES DESK.
--- NOTE | 2021-02-12 04:14 | NUR ---
PATIENT RESTING QUIETLY SUPINE, EYES CLOSED, RESPIRATIONS REGULAR AND EVEN, CALL LIGHT IN REACH, AND BED ALARM ON.
--- NOTE | 2021-02-12 07:30 | NUR ---
RECEIVED REPORT AROUND 0700. PT AT THAT TIME WAS IN BED SLEEPING. BED ALARM ACTIVE.
--- NOTE | 2021-02-12 07:53 | NUR ---
Attempted to call Annelise, sister. Left update message on her cell phone.
--- NOTE | 2021-02-12 09:00 | NUR ---
PT IN CHAIR EATING BREAKFAST. PT HAS GOOD PO INTAKE. BED ALARM/ CHAIR ALARM IN USE. PT SO FAR COOPERATIVE WITH CARE. ALL LOBES ARE CLEAR, ABD SOUNDS ARE PRESENT, ABD IS FIRM AND TENDER TO TOUCH. PT DID HOWEVER STATE, THAT HIS ABDOMENT IS LESS DISTENDED. PT HAS +1 PITTING EDEMA IN HIS RLE. PT DISORINETED TO PLACE, DATE, CIRCUMSTANCE. LACTULOSE WAS HELD SO FAR THIS MORNING SINCE PT HAS HAD BM'S X4 SINCE HIS LAST DOSE.
--- NOTE | 2021-02-12 10:19 | NUR ---
Attempt to start IV X3, when attempt to advance catheters, unable. Attempt to float all 3 in, infiltrate with flush. Caroline Finnegan RN, notified.
--- NOTE | 2021-02-12 11:00 | NUR ---
WOKE PT UP. OT NEEDS TO WORK WITH PT. NO NEW CONCERNS NOTED AT THIS TIME.
--- NOTE | 2021-02-12 11:00 | NUR ---
Annelise called and stated she has gone to pt's home and had people staying there leave. She was unable to find his wallet, phone, or keys at his house. Let her know I have not heard from supervisor chlorine liquefaction as she has been very busy today, but I will call as soon as I hear.
--- NOTE | 2021-02-12 12:10 | NUR ---
Notified by ZAHIRA Simon, she past pts room and he was speaking on his cell phone. To room and pt is speaking with son on phone. Son called me and laughed as we are all unsure where he has had his phone, but pt now has and is able to call. Maite checked pt's pockets and found his keys. Family notified.
--- NOTE | 2021-02-12 12:27 | NUR ---
PT REFUSED TO ORDER LUNCH TODAY SO FAR. PT IS UP IN CHAIR BUT SLEEPING AT THIS TIME.
--- NOTE | 2021-02-12 14:21 | NUR ---
PT IS UP WORKING IN [place] AND Barbara RM WITH [employer]. GAVE ENCOURAGEMENT, CHALLENGED PT TO CONTINUE TO WORK AT [employer]. PT ACKNOWLEDGED, WILL FOLLOW
--- NOTE | 2021-02-12 14:30 | NUR ---
Notified by house moving supervisor she removed everything from the safe and was able to find pt's wallet. Called family and updated. Notified by Dr. Rush he received cultures and pt will remain in the hospital until February 24 for antibiotics. Pt aware.
--- NOTE | 2021-02-12 15:24 | NUR ---
THIS MORNING OCCUPATIONAL THERAPY TOOK PATIENT INTO THE BATHROOM TO WASH HIS FACE AND HANDS ALSO TO BRUSH HIS TEETH. AFTER HE WAS DONE THAN THEY WALKED OUT TO HIS CHAIR AND HE SAT DOWN AND PUT ON A NEW GOWN. THEN HE DID A BED BATH WITH A LITTLE BIT OF HELP. PATIENT IS SITTING UP IN HIS CHAIR.
--- NOTE | 2021-02-12 15:25 | NUR ---
NO CHANGES WERE NOTED WITH SECOND ASSESSMENT. PT OVERALL IS DOING BETTER TODAY AND HAS REMAINED COOPERATIVE WITH CARE. PT ALSO WALKED AND WORKED WITH PHYS. THERAPY. NO NEW CONCENRS NOTED AT THIS TIME.
--- NOTE | 2021-02-12 15:32 | NUR ---
AFTER A SOME SEARCHING PATIENT WALLET FOUND TO BE IN THE SAFE. WALLET RETURNED TO THE SAFE. PER ADMIT STAFF INFORMATION LOGGED AND DOUBLE SIGNED.
--- NOTE | 2021-02-12 16:54 | NUR ---
MARY HERRERA MIDLINE INSERTION NOTE: ASKED BY DR VENCES TO EVALUATE PATIENT FOR POTENTIAL MIDLINE PLACEMENT DUE TO ABX INFUSIONS. AFTER REVIWING THE CHART AND INTERVIEWING THE PATIENT, NO ABSOLUTE CONTRAINDICATIONS WERE IDENTIFIED. PATIENT WAS ABLE TO SIGN CONSENT FORM AND ASKS QUESTIONS APPROPRIATELY. PATIENT RIGHT ARM WAS EVALUATED THE SITE KVNG U/S. PATIENT BASILIC ADN BRACHIAL VEINS WERE GOO CANDIDATES. BASILIC VEIN WAS MEASURED USING THE 5 FR TOOL, AND SHOWED AN 18 GUAGE WOULD TAKE UP APPROX 44% OF VEIN. STERILE PREP OF INSERTION SITE WAS THEN FOLLOWED. BASILIC VEIN WAS ACCESSED EASLIY UPON THE FIRST ATTEMPT. BRISK, DARK, NONPULSATILVE BLOOD WAS RETURNED. GUIDEWIRE THREADED EASLIY INTO VEIN, WELL CATHETER. STERILE DRESSING APPLIED. REPORT TO ROMA LUKE. PATIENT GIVEN EDUCATION MATERIAL ON MIDLINE.
--- NOTE | 2021-02-12 17:19 | NUR ---
LEFT SIDED WEAKNESS IS UNCHNGED SO FAR. PT HAS HER DAUGHTER COME INTO TOWN TO HELP HER. UNTIL THEN, PT WILL D/C TO SNF. SUCH IS THE PLAN AT THIS TIME. NO OTHER DEFECITS WERE NOTED WITH ASSESSMENTS OVERALL. PO INTAKE IS OK BUT NOT STELLAR. PT SEEMS TO HAVE SOME ANXIETY AND WORRIES ABOUT HER ANIMALS NOT BEING CARED FOR PROPERLY. NO NEW CONCERNS WERE NOTED THIS SHIFT OVERALL. V/S WDL, URINE OUTPUT WDL ALSO.
--- NOTE | 2021-02-12 17:25 | NUR ---
PT OVERALL SEEMED TO HAVE A BETTER DAY TODAY. PT WAS COOPERATIVE WITH ALL CARE AND PLEASANT OVERALL. V/S WDL, URINE OUTPUT WDL BUT STILL BILI IN COLOR. ABD SOUNDS PRESENT WITH BM X1 THIS SHIFT. ABD IS FIRM AND TENDER TO TOUCH. PT STATED THAT HIS ABD IS LESS DISTENDED. LOBES ARE WDL, RLE HAS +1 PITTING EDEMA PRESENT. PT DISORIENTED TO PLACE, DATE AND TIME. PT NOW HAS A POWER GLIDE MIDLINE IN HIS RUE. OVERALL NO NEW CONCERNS NOTED THIS SHIFT. 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
--- NOTE | 2021-02-12 19:00 | NUR ---
SHIFT REPORT RECEIVED FROM DAYSHIFT TI FERNANDEZ AT BEDSIDE, pt RESTING IN BED WITH EYES CLOSED, RR EVEN AND UNLABORED. NO DISTRESS NOTED, IV SITE AND MIDLINE SALINE LOCKED PER TI FERNANDEZ. BED ALARM ON FOR SAFETY, CALL LIGHT IN REACH.
--- NOTE | 2021-02-12 21:30 | NUR ---
BED ALARM SOUNDED, 1PA WITH FWW TO RESTROOM AND BACK TO BED. BROUGHT PT CRANBERRY JUICE AND PT ASKED FOR SANDWICH. WILL BRING IT IN WHEN IT ARRIVES. PT DENIES FURTHER NEEDS, CALL LIGHT IS CLOSE AND BED ALARM IS ON.
--- NOTE | 2021-02-12 21:40 | NUR ---
IN TO GET VITALS, NO FURTHER NEEDS, PT RESTING AT THIS TIME, NO FURTHER NEEDS
--- NOTE | 2021-02-12 22:30 | NUR ---
ASSESSMENT COMPLETE, IV ABX GIVEN VIA RIGHT POWERGLIDE MIDLINE, BRISK BLOOD RETURN NOTED. PERIPHERAL IV ALSO SALINE FLUSHED AND WNL. pt RESTING QUIETLY, RR EVEN AND UNLABORED. AWOKE BRIEFLY TO VOICE AND RETURNED TO SLEEP. pt ALLOWED TO REST, pt IMPULSIVE AT TIMES. SANDWICH BOX PROVIDED BY [facility] [place].BED ALARM ON FOR SAFETY. WILL CONTINUE TO MONITOR.
--- NOTE | 2021-02-13 00:10 | NUR ---
IV ABX COMPLETE, SITE REMAINS WNL. MIDLINE FLUSHED WITH 10MLS NORMAL SALINE. pt REMAINS RESTING QUIETLY IN BED WITH EYES CLOSED, RR EVEN AND UNLABORED. NO DISTRESS NOTED, CALL LIGHT IN REACH. BED ALARM ON.
--- NOTE | 2021-02-13 02:24 | NUR ---
BED ALARMING, pt SITTING ON EDGE OF BED. SBA WITH FWW TO BATHROOM TO VOID AND BACK IN BED. ASSESSMENT COMPLETE, NO NEW CHANGES OR CONCERNS. IV ABX INFUSING VIA RIGHT MIDLINE, BRISK BLOOD RETURN NOTED AND DRESSING INTACT. pt A/O TO SELF AND PLACE, REORINETED TO TIME AND DATE. BED ALARM ON. EATING SNACK, NO NEEDS VERBALIZED. CALL LIGHT IN REACH.
--- NOTE | 2021-02-13 03:56 | NUR ---
PT'S IV WAS BEEPING, FLUSHED LINE AND IT IS NOW SL. PT IS RESTING WITH EYES CLOSED, RR IS EVEN AND NONLABORED. CALL LIGHT IS CLOSE AND BED ALARM IS ON.
--- NOTE | 2021-02-13 05:36 | NUR ---
PT attempting to get oob, 1pa with fww to bathroom to void and back in bed. steady on feet, vss. i&o's complete. fresh water given, call light in reach. bed alarm on for safety.
--- NOTE | 2021-02-13 06:27 | NUR ---
scheduled iv abx infusing, midline wnl, brisk blood return noted. call light in reach and bed alarm on for safety.
--- NOTE | 2021-02-13 08:35 | NUR ---
IN TO GIVE PT MORNING MEDICATIONS. AWAKE AND ALERT THIS MORNING SITTING UP IN CHAIR EATING BREAKFAST. LUNG SOUNDS CLEAR, BOWEL TONES ACTIVE. MIDLINE TO JACQUELIN SALINE LOCKED. PT IS W/OUT COMPLAINT. DENIES FURTHER NEEDS.
--- NOTE | 2021-02-13 08:36 | NUR ---
1PA PATIENT UP TO CHAIR FOR BREAKFAST. PATIENT UNSTEADY, BUT USED FWW WELL. CHAIR ALARM ON FOR SAFETY, CALL LIGHT IN REACH.
--- NOTE | 2021-02-13 09:06 | NUR ---
PATIENT BACK TO BED FOR NAP, ALARM ON FOR SAFETY. ROOM TIDIED, CALL LIGHT IN EASY REACH
--- NOTE | 2021-02-13 10:04 | NUR ---
OT CURRENTLY IN ROOM WORKING WITH PT.
--- NOTE | 2021-02-13 11:19 | NUR ---
Spoke with Hossein, he is aware of need to stay until February 24 for antibiotics. He is concerned about his rent getting paid. Will call his son to work out with his dad. Pt states he had money in his wallet for his rent.
--- NOTE | 2021-02-13 12:21 | NUR ---
PT LAYING IN BED, HAD JUST ORDERED LUNCH. GAVE ENCOURAGEMENT, PT REQUESTED PRAYER. WILL CONTINUE TO FOLLOW
--- NOTE | 2021-02-13 13:00 | NUR ---
Received call from Ana Copeland from [facility]. She is calling with times for financial and physical assessment for medicaid eval. Financial eval will be TuesdayFebruary 16 at 1 pm, Physical eval will be February 18, 11:00. Called sister Annelise and minal and she will call samir to be present to help Hossein answer questions.
--- NOTE | 2021-02-13 13:54 | NUR ---
PT WOKEN FOR VITALS. VSS. IV OXACILLIN INFUSING. HOB ELEVATED TO GIVE LACTULOSE. PT DID HAVE COUGHING EPISODE AFTER TAKING THAT RESOLVED AFTER SEVERAL MINUTES. WATER REFRESHED AND PT WATCHING TV. CALL LIGHT IN REACH. BED ALARM ON PT REMAINS IMPULSIVE.
--- NOTE | 2021-02-13 16:42 | NUR ---
Patient called nurses station around 1600 and requested assistance to BR. Patient used fww to BR. Patient got back to bed and requested warm balnekt, one was provided, call light left in reach.
--- NOTE | 2021-02-13 18:00 | NUR ---
IN TO HANG OXACILLIN. PT AWAKE TO VOID 350 MLS IN URINAL. BACK TO BED. MEDICATIONS TAKE. WARM PACK TO BACK. DENIES FURTHER NEEDS. CALL LIGHT IN REACH. BED ALARM ON.
--- NOTE | 2021-02-13 19:15 | NUR ---
SHIFT REPORT RECEIVED FROM DAYSHIFT TI GONZALES AT BEDSIDE. pt RESTING QUIETLY IN BED WITH EYES CLOSED, RR EVEN AND UNLABORED. NO DISTRESS NOTED, CALL LIGHT IN REACH.
--- NOTE | 2021-02-13 21:30 | NUR ---
IN TO GET PT UP TO THE TOILET, SBA WITH FWW, PT BACK TO BED, VITALS DONE, CRAN JUICE AND WATER PROVIDED, NO FURHTER NEEDS AT THIS TIME
--- NOTE | 2021-02-13 22:40 | NUR ---
ASSESSMENT COMPLETE, SCHEDULED IV ABX INFUSING TO RUE MIDLINE, BRISK BLOOD RETURN NOTED. DRESSING C/D/I. VSS, pt REORIENTED TO DATE AND TIME. BED ALARM ON FOR SAFETY. LARGE AMOUNT URINE ON FLOOR AND IN BED, UNEMPLOYMENT CLAIMS ADJUDICATOR GARRETT IN ROOM TO ASSIT pt WITH BED CHANGE. NO FURTHER NEEDS, CALL LIGHT IN REACH.
--- NOTE | 2021-02-13 23:00 | NUR ---
IN TO CLEAN FLOOR, CHANGE BED LINENS, PT USED URINAL, PT BACK IN BED, ALARM RESET, NO FURHTER NEEDS
--- NOTE | 2021-02-14 00:20 | NUR ---
IV PUMP WAS BEEPING, FLUSHED IV AND IT IS NOW SL. ASSISTED PT TO RESTROOM 1PA W/FWW, HE IS NOW BACK IN BED. BED ALARM IS ON AND CALL LIGHT IS CLOSE.
--- NOTE | 2021-02-14 01:58 | NUR ---
IN TO ASSIST PT WITH URINAL, UNABLE TO VOID AT THIS TIME, PT BACK TO BED, NO FURTHER NEEDS
--- NOTE | 2021-02-14 02:22 | NUR ---
scheduled iv abx infusing via midline, brisk blood return noted. snack provided per PT request, no further needs. call light in reach and bed alarm on.
--- NOTE | 2021-02-14 02:36 | NUR ---
IN TO ASSIST PT WITH LIGHT
--- NOTE | 2021-02-14 04:19 | NUR ---
BED ALARM SOUNDED PT, UPON ENTERING ROOM PT STOOD AND THIS RN ASSISTED HIM TO RESTROOM. HE THEN MENTIONED HE IS STAYING UNTIL THE 6TH, THEN SAID "I NEED TO GO HOME" AND PROCEEDED TO WALK INTO HERNANDEZ. PT WAS DIFFICULT TO REDIRECT FOR FEW MINUTES, BUT THEN AGREED TO RETURN TO HIS ROOM. BED ALARM IS ON AND CALL LIGHT IS CLOSE.
--- NOTE | 2021-02-14 05:52 | NUR ---
pt HAD A GOOD NIGHT, A/O TO SELF AND PLACE. BED ALARM ON FOR SAFETY. REGULAR DIET, TOLERATING WELL. NO NAUSEA REPORTED, BOWEL TONES ACTIVE. SBA WITH AMBULATION. IV ABX, MIDLINE WNL, DRESSING C/D/I. NO REPORTS OF PAIN THIS SHIFT. VOIDING QS, NO BM THIS SHIFT.
--- NOTE | 2021-02-14 06:10 | NUR ---
ASSESSMENT COMPLETE, NO NEW CHANGES OR CONCERNS. pt AWOKE BRIEFLY TO VOICE, THEN RETURNED TO SLEEP. RR EVEN AND UNLABORED, NO DISTRESS NOTED. BED ALARM ON. SCHEDULED IV ABX INFUSING, MIDLINE WNL. BRISK BLOOD RETURN NOTED. CALL LIGHT IN REACH.
--- NOTE | 2021-02-14 07:30 | NUR ---
REPORT RECEIVED FROM REFRACTORY WORKER TI SEVILLA. PT SLEEPING SLOUNDLY IN BED, SNORING LOUDLY. WHITEBOARD UPDATED. CALL LIGHT IN REACH. BED ALARM ON.
--- NOTE | 2021-02-14 08:50 | NUR ---
PT AWAKE SITTING UP IN CHAIR EATING BREAKFAST. PT ALERT TO SELF, PLACE, MONTH AND YEAR. MEDICATIONS GIVEN. VSS. PT CONTINUES TO C/O CHRONIC BACK PAIN 02/28. OFFERED WARM PACK HOWEVER PT REFUSED. STATES "IT'S FINE RIGHT NOW, I CAN HANDLE IT." PT ON CHAIR ALARM HE IS IMPULSIVE. CALL LIGHT IN REACH THOUGH HE OCCASIONALLY CALLS APPROPRIATELY.
--- NOTE | 2021-02-14 11:00 | NUR ---
DR SNEED IN TO SEE PT. NEW ORDERS FOR LIDOCAINE PATCH FOR LOWER BACK AND PRN BENTYL FOR ABD PAIN THAT PT HAS NEWLY REPORTED TO . BENTYL GIVEN AND LIDOCAINE PLACED ON LOW BACK. OXACILLIN INFUSING. PT UP WORKING WITH PHYSICAL THERAPY NOW.
--- NOTE | 2021-02-14 14:00 | NUR ---
PT UP TO BATHROOM TO VOID. BACK TO CHAIR. OXACILLIN INFUSION STARTED. PICTURE FRAMER IN TO DO VITALS. VSS.
--- NOTE | 2021-02-14 14:37 | NUR ---
PATIENT AWAKE IN CHAIR. VITALS AND I&OS CHARTED. CALL LIGHT IN REACH
--- NOTE | 2021-02-14 15:57 | NUR ---
1PA WITH FWW TO SHOWER AND BACK TO CHAIR. ALARM ON FOR SAFETY, ALTHOUGH PATIENT HAS CALLED APPROPRIATELY ALL DAY. REHAN AND FRESH ICE WATER PROVIDED, CALL LIGHT IN REACH.
--- NOTE | 2021-02-14 18:17 | NUR ---
VITALS AND I&OS CHARTED. PATIENT BRIEFLY BECAME AGITATED, "I NEED TO GO OUT FRONT AND MEET MY MOM" PATIENT REDIRECTED AND BACK IN BED. RN AT BEDSIDE FOR MEDS, CALL LIGHT IN REACH, BED ALARM ON FOR SAFETY
--- NOTE | 2021-02-14 19:10 | NUR ---
SHIFT REPORT RECEIVED FROM JAVIER GONZALES AT BEDSIDE, IV ABX COMPLETE. MIDLINE FLUSHED WITH 10MLS SALINE, DRESSING WNL. BED ALARM ON FOR SAFETY, CALL LIGHT IN REACH. BOARD UPDATED.
--- NOTE | 2021-02-14 21:49 | NUR ---
BED ALARM SOUNDED, PT NEEDING TO USE RESTROOM. SBA TO RESTROOM AND BACK TO BED. PT IS REQUESTING FOOD. HE WOULD LIKE A COOKIE AND BANANA. HE IS EATING FRUIT LEFT FROM HIS DINNER. WILL RETURN WITH SNACK. PT DENIES FURTHER NEEDS, CALL LIGHT IS CLOSE AND BED ALARM IS ON.
--- NOTE | 2021-02-14 22:02 | NUR ---
RETURNED WITH SNACK, PT IS NOW RESTING WITH EYES CLOSED. RR IS EVEN AND NONLABORED. CALL LIGHT IS CLOSE, BED ALARM IS ON.
--- NOTE | 2021-02-14 22:30 | NUR ---
ASSESSMENT COMPLETE, SCHEDULED MEDS GIVEN (SEE EMAR). BUS DRIVER SCHOOL GARRETT IN ROOM TO COLLECT VS, pt DENIES PAIN, BUT REPORTS ABD DISCOMFORT AND TENDERNESS WHEN PALPATED. EATING SNACK, DENIES NAUSEA. IV ABX INFUSING, BRISK BLOOD RETURN NOTED. DRESSING C/D/I. BED ALARM ON FOR SAFETY.
--- NOTE | 2021-02-14 22:50 | NUR ---
IN TO GET VITALS, PT HAD FRESH ICE WATER AND SNACK, NO FURTHER NEEDS
--- NOTE | 2021-02-15 02:15 | NUR ---
BED ALARM GOING OFF, pt UP SBA TO VOID AND BACK IN BED. STEADY ON FEET. BED ALARM ON. ASSESSMENT COMPLETE, NO NEW CHANGES OR CONCERNS. pt A/O TO SELF, CLAIMS HE IS IN [place] AT "HOUSING". WHEN ASKED THE TIME OR DATE, pt STATES, "WHY THE HELL DO I CARE". pt REORIENTED. IV ABX INFUSING, MIDLINE WNL. PRN BENTYL ALSO GIVEN, SEE EMAR FOR 8/ ABD PAIN. CALL LIGHT IN REACH.
--- NOTE | 2021-02-15 04:40 | NUR ---
IN TO ASSIST PT OUT OF BED, PT STATES HE IS LOOKING FOR HIS BACKPACK AND SHOES, PT UP TO THE CHAIR, ALARM ON, ICE WATER REFILLED, NO FURTHER NEEDS
--- NOTE | 2021-02-15 05:54 | NUR ---
PT'S BED ALARM SOUNDED AND HE WAS TAKEN TO RESTROOM BY ANOTHER RN. THIS RN ASSISTED HIM BACK TO BED AND PROVIDED FRESH JUICE. PT DENIES FURTHER NEEDS, CALL LIGHT IS CLOSE AND BED ALARM IS ON.
--- NOTE | 2021-02-15 06:35 | NUR ---
SCHEDULED IV ABX INFUSING, MIDLINE WNL, BRISK BLOOD RETURN NOTED. NO FURTHER NEEDS, CALL LIGHT IN REACH. BED ALARM ON.
--- NOTE | 2021-02-15 07:39 | NUR ---
PT APPEARS TO BE SLEEPING COMFORTABLY AT TIME OF SHIFT EXCHANGE, LEFT UNDISTURBED.
--- NOTE | 2021-02-15 08:06 | NUR ---
PT AWAKENS TO VOICE SITTING UP EATING BREAKFAST AT THIS TIME. DENIES DISCOMFORTS OR NEEDS OF
--- NOTE | 2021-02-15 09:24 | NUR ---
PT UP AMBULATES THE HERNANDEZ WITH STAFF SBA, RETURNS TO RESTING IN BED WATCHING SPORTS. C/O SOME BACK PAIN, LIDOCAINE PATCH APPLIED HEAT PACK OFFERED.
--- NOTE | 2021-02-15 09:30 | NUR ---
SBA TO BR WITH FWW. PATIENT AMBULATED 1X AROUND NURSES STATION WITH THIS REPORT DEVELOPER USING FWW. PATIENT C/O BACK PAIN, RN NOTIFIED. PATIENT BACK TO BED, CALL LIGHT IN REACH, BED ALARM ON FOR SAFETY
--- NOTE | 2021-02-15 10:23 | NUR ---
PT UP AMBULATING THE HERNANDEZ WITH P/T
--- NOTE | 2021-02-15 12:48 | NUR ---
PT UP IN THE CHAIR WITH NOON MEAL. AGREES HIS ABDOMEN FEELS BETTER BUT CHRONIC BACK PAIN CONTINUES.
--- NOTE | 2021-02-15 14:15 | NUR ---
PATIENT RESTING IN BED EYES CLOSED. WOKE TO VOICE. VITALS AND I&OS CHARTED
--- NOTE | 2021-02-15 14:16 | NUR ---
PT SPENDS AN EXTENDED PERIOD OF TIME UP IN THE CHAIR, RETURNS TO REST IN BED AFTER NOON MEAL. APPEARS TO BE SLEEPING
--- NOTE | 2021-02-15 18:10 | NUR ---
PATIENT CALLED FOR ASSISTANCE TO BR. VITALS AND I&OS CHARTED AND BACK TO SIDE OF BED FOR DINNER. RN IN ROOM FOR MEDS. CALL LIGHT IN REACH
--- NOTE | 2021-02-15 18:13 | NUR ---
PT HAS BEEN FROM BED TO CHAIR, AMBULATED, THEN TO THE BED AND CHAIR SEVERAL TIMES THIS SHIFT. CURRENTLY RESTING EYES CLOSED AFTER EVENING MEAL.
--- NOTE | 2021-02-15 19:10 | NUR ---
SHIFT REPORT RECEIVED FROM DAYSHIFT RN NUNO AT BEDSIDE. pt AWAKE AND RESTING IN BED, RR EVEN AND UNLABORED. BED ALARM TURNED ON, CALL LIGHT IN REACH.
--- NOTE | 2021-02-15 20:33 | NUR ---
BED ALARMING. SBA TO THE BATHROOM. PATIENT IS BACK IN BED NOW. BED ALARM ON FOR SAFETY. PATIENT ASKING FOR APPLE. MERCERIZERLINDA SERVIN WILL FIND OUT DOWN IN THE [place].
--- NOTE | 2021-02-15 22:22 | NUR ---
ASSESSMENT COMPLETE, SCHEDULED MEDS GIVEN ALONG WITH PRN BENTYL (SEE EMAR). pt A/O TO SELF AND PLACE. BED ALARM ON FOR SAFETY. pt PLEASANT AND COMPLIANT WITH CARE, IV ABX INFUSING. MIDLINE WNL, BRISK BLOOD RETURN NOTED. CALL LIGHT IN REACH, NO FURTHER NEEDS.
--- NOTE | 2021-02-15 23:02 | NUR ---
BED ALARM SOUNDING. SBA TO RESTROOM FOR UNMEASURED VOID AND BACK TO BED. BED ALARM SET. HEAT IN ROOM ADJUSTED PER REQUEST. PHONE CHARGING. NO ADDITIONAL REQUESTS.
--- NOTE | 2021-02-16 00:09 | NUR ---
IV ABX COMPLETE, MIDLINE WNL AND SALINE LOCKED PER POLICY. NO FURTHER NEEDS, CALL LIGHT IN REACH. BED ALARM ON.
--- NOTE | 2021-02-16 00:49 | NUR ---
POPSICLE PROVIDED PER pt REQUEST, pt UP TO VOID AND BACK TO BED, STEADY ON FEET. CALL LIGHT IN REACH AND BED ALARM ON.
--- NOTE | 2021-02-16 01:38 | NUR ---
SBA. PATIENT WAS UP TO THE BATHROOM. PATIENT IS BACK IN BED. BED ALARM ON. PATIENT ASKED FOR HOT HAILEE. NOT AVAILABLE. MILK PROVIDED PER PATIENT'S REQUEST.
--- NOTE | 2021-02-16 02:15 | NUR ---
IV ABX INFUSING, MIDLINE WNL. BRISK BLOOD RETURN NOTED. ASSESSMENT COMPLETE, REPORTS 8/10 PAIN R/T HEADACHE AND STATES, "WHAT, NO PAIN SHOT". NO DISTRESS NOTED, RR EVEN AND UNLABORED. WARM RAG GIVEN TO FORHEAD, NO FURTHER NEEDS. CALL LIGHT IN REACH AND BED ALARM ON.
--- NOTE | 2021-02-16 03:00 | NUR ---
PATIENT USED THE URINAL BUT NOTHING GOT IN INSTEAD WET ALL THE BED LINEN, GOWN AND ON THE FLOOR. CHANGED BED LINEN, GOWN AND WIPED THE FLOOR. PATIENT IS BACK IN BED. COFFEE PROVIDED PER REQUEST. BED ALARM ON.
--- NOTE | 2021-02-16 04:40 | NUR ---
BED ALARM GOING OFF, pt UP SBA TO VOID AND BACK TO BED. STEADY ON FEET, POPSICLE AND SODA PROVIDED PER pt REQUEST. CALL LIGHT AND BED ALARM ON.
--- NOTE | 2021-02-16 05:48 | NUR ---
LAB DRAW PULLED FROM MIDLINE PER POLICY, TOURNIQUET REMOVED. DRESSING C/D/I. pt REPORTS PAIN IN BACK, IMPROVED AFTER REPOSITIONING AND PILLOW PLACED UNDER RIGHT HIP. NO FURTHER NEEDS, CALL LIGHT IN REACH.
--- NOTE | 2021-02-16 06:20 | NUR ---
pt COMPLAINS OF BACK PAIN 05/01. REQUESTING LIDODERM PATCH, APPLIED AT THIS TIME. SBA TO RESTROOM FOR UNMEASURED VOID AND BACK TO BED. ALARM IN PLACE. CALL LIGHT IN REACH.
--- NOTE | 2021-02-16 06:55 | NUR ---
second cbc sent to lab due to clotting of first sample, sample collected from right midline per policy, tourniquet then removed. iv abx resumed. no further needs, call light in reach. bed alarm on.
--- NOTE | 2021-02-16 07:20 | NUR ---
PT UP TO THE TOILET AT TIME OF SHIFT EXCHANGE DENIES NEEDS OF.
--- NOTE | 2021-02-16 08:39 | NUR ---
PT UP TO THE CHAIR FOR MORNING MEAL. AMBULATES IN ROOM, LOOKS OUT WINDOW, RETURNS TO BED TO REST.
--- NOTE | 2021-02-16 09:24 | NUR ---
PATIENT IN CHAIR FOR BREAKFAST EARLIER. PATIENT NOW IN BED RESTING WITH EYES CLOSED. AM CARE, ORAL CARE, LINEN CHANGE DONE. PATIENT SAID SHOWER MAYBE LATER. VITALS AND I&O'S CHARTED. CALL LIGHT IN REACH.
--- NOTE | 2021-02-16 09:53 | NUR ---
AMBULATED PT IN HALLS SBA. TOERLATED WELL. COMPLETED 2 LAPS.
--- NOTE | 2021-02-16 09:55 | NUR ---
PT UP AMBULATES THE HERNANDEZ WITH SBA.
--- NOTE | 2021-02-16 11:15 | NUR ---
PT UP AND TO THE SHOWER INDEPENDANTLY WELL TOLERATED. SITTING UP IN THE CHAIR NOW DENIES DISCOMFORTS OR NEEDS OF
--- NOTE | 2021-02-16 17:04 | NUR ---
AMBULATED WITH PT IN HALLS FOR ONE LAP. ASSISTED BACK TO ROOM. PT HAD 1 LARGE BM. PT IS SOMEWHAT AGITATED WANTING TO LEAVE. PT REORIENTED WELL. CALL LIGHT IN REACH.
--- NOTE | 2021-02-16 18:33 | NUR ---
PT C/O OF ACK PAIN UNRELIEVED BY LIDOCAIN PATCH. DR SNEED NOTIFIED. TELEPHONE ORDER RECEIVED FOR OXYCODONE 5MG PO Q6P. READ BACK DONE FOR VERIFICATION.
--- NOTE | 2021-02-16 19:10 | NUR ---
BEDSIDE REPORT RECEIVED FROM TI POTTS. pt RESTING IN BED, BED ALARM ON. CALL LIGHT IN REACH. pt AWAKE WATCHING TV.
--- NOTE | 2021-02-16 19:45 | NUR ---
PHONE CALL TO LAB, QUESTIONED WHETHER HAD ENOUGH BLOOD TO DRAW ORDERED LIVER PROFILE LABS. LAB TO CALL BACK AND NOTIFY RN IF BLOOD SAMPLE NEEDED FROM MIDLINE.
--- NOTE | 2021-02-16 19:47 | NUR ---
Patient requested assistance to bed and with blankets, this was completed. Patient also requested warm blanket which was provided.
--- NOTE | 2021-02-16 20:00 | NUR ---
PATIENT WENT TO THE BATHROOM USING WALKER. SBA. PATIENT IS BACK IN BED. BED ALARM ON.
--- NOTE | 2021-02-16 20:15 | NUR ---
LIVER PROFILE LABS DRAWN WNL FROM POWER MIDLINE. pt RESTING IN BED. VSS. ASSESSMENT COMPLETE. pt C/O 5/10 ABDOMINAL PAIN. PRN MEDICATION ADMINISTERED. pt DENIES ANY BACK PAIN. PEANUT BUTTER AND JELLY SANDWICH PROVIDED. IV ANTIBIOTIC INFUSING WNL ORDERED. CALL LIGHT IN REACH. BED ALARM ON. NOTIFIED THAT LIVER PROFILE LABS SENT AT THIS TIME.
--- NOTE | 2021-02-16 20:35 | NUR ---
BED ALARM SOUNDING, pt MOVING UP IN BED. DENIES TOILETING NEEDS AT THIS TIME. CALL LIGHT IN REACH. pt ATE 100% OF SANDWICH.
--- NOTE | 2021-02-16 21:26 | NUR ---
IV PUMP ALARMING, IV ANTIBIOTIC COMPLETE. pt DROWSY, REQUESTING TO SLEEP. LIGHTS OFF IN ROOM. BED ALARM ON.
--- NOTE | 2021-02-16 23:00 | NUR ---
PT WANDERED OUT OF ROOM, NOT WANTING TO GO BACK INTO ROOM, CAME TO DESK AND WANTED TO KNOW WHERE THE 11 O'CLOCK BUS WAS. TOLD PT THAT IT WASN'T RUNNING AT THIS TIME DUE TO THE HEAT, AND TRY BACK TOMORROW. HE WANDERED BACK INTO HIS ROOM.
--- NOTE | 2021-02-16 23:23 | NUR ---
pt AT NURSES STATION WALKING AROUND. COMPLAINS OF BACK PAIN 9/10, LOWER BACK, CONSTANT PAIN. PHONE CALL TO MD, NEW ORDERS RECEIVED AND REPEATED BACK FOR PRN PAIN MEDICATION. pt BACK IN ROOM. BED ALARM ON.
--- NOTE | 2021-02-16 23:35 | NUR ---
PRN KETOROLAC ADMINISTERED FOR 9/10 LOWER BACK PAIN. pt LYING ON SIDE. WARM BLANKET PLACED BEHIND BACK. CALL LIGHT IN REACH. BED ALARM ON.
--- NOTE | 2021-02-17 00:13 | NUR ---
BED ALARM SOUNDING, pt SHIFTING IN BED. CONTINUES TO COMPLAIN OF BACK PAIN. RATES PAIN 7/10 IN LOWER BACK. SBA TO RESTROOM FOR VOID AND BACK TO BED. PRN OXYCODONE ADMINISTERED AT THIS TIME. CALL LIGHT IN REACH. BED ALARM ON.
--- NOTE | 2021-02-17 01:05 | NUR ---
pt OUT OF BED, AMBULATES TO [facility] STATION NURSES RESPOND TO ALARM. pt STATES "I'M GOING TO [employer]". REORIENTED PATIENT "I'M NOT DUMB, I KNOW WHERE I AM". pt ESCORTED BACK TO ROOM. LIGHTS OFF IN ROOM.
--- NOTE | 2021-02-17 01:35 | NUR ---
pt OUT OF BED, AMBUALTING IN HALLWAY LOOKING FOR SHOWER. REDIRECTED BACK TO ROOM, REORIENTATION TO TIME. pt REQUESTING CHOCOLATE CAKE. BROWNIE AND MILK PROVIDED. pt SITTING UP AT SIDE OF BED EATING SNACK.
--- NOTE | 2021-02-17 02:17 | NUR ---
pt SLEEPING, SNORING. DOES NOT AWAKEN RN FLUSHES MIDLINE AND STARTS ANTIBIOTICS. BED ALARM IN PLACE. LIGHTS OFF IN ROOM.
--- NOTE | 2021-02-17 03:30 | NUR ---
ABX COMPLETE. PT SNORING. SL
--- NOTE | 2021-02-17 04:27 | NUR ---
pt RESTING IN BED WITH EYES CLOSED. BREATHING UNLABORED, RR 18. LIGHTS OFF IN ROOM. BED ALARM ON.
--- NOTE | 2021-02-17 06:15 | NUR ---
pt ANXIOUS AT START OF SHIFT, WANDERING OUT OF ROOM MULTIPLE TIMES, REDIRECTABLE BACK TO ROOM. BED ALARM IN PLACE. pt COMPLAINS OF BACK PAIN. NEW PRN PAIN MEDICATION ORDERS FROM . pt APPEARED TO REST WELL IN MORNING HOURS. ORIENTED TO SELF, YEAR, LOCATION, EVENT THIS SHIFT. REORIENTATION TO CONTINUED HOSPITAL STAY, EXACT DATE PROVIDED. pt COOPERATIVE WITH CARES.
--- NOTE | 2021-02-17 06:44 | NUR ---
pt AWAKENS TO RN AND ICT EDUCATOR ENTERING ROOM FOR VS. pt STATES "I HAD A GOOD SLEEP". ASSESSMENT COMPLETE. pt DENIES BACK PAIN, DENIES ABD PAIN. COFFEE PROVIDED REQUESTED. ICE WATER IN REACH. ICT EDUCATOR SINTA IN ROOM, pt PUTTING ON SHORTS.
--- NOTE | 2021-02-17 06:44 | NUR ---
Patient vitals and Is and Os charted, trash emptied, fresh ice water, call light within reach, breakfast order placed.
--- NOTE | 2021-02-17 07:29 | NUR ---
REPORT RECEIVED. PT IN ROOM AWAKE IN CHAIR. CALL LIGHT IN REACH.
--- NOTE | 2021-02-17 08:16 | NUR ---
IN FOR ASSESSMENT AND MED PASS. PT SITTING UP IN CHAIR EATING BREAKFAST. REPORTS NO PAIN THIS MORNING. PT IS IN GOOD MOOD. TOOK MEDS WITHOUT PROBLEMS. PT WITH CRACKLES IN BASE OF LUNGS. BOWEL TONES ACTIVE. PT WITH TRACE EDEMA CHILO ESPINOZA. CALL LIGHT IN REACH.
--- NOTE | 2021-02-17 09:00 | NUR ---
Spoke with Hossein, he is walking in the [place]. States he is feeling 100% better. Much clearer in his thinking. Aware he needs to stay until the 6th for antibiotics. He states he did not receive a call from [facility] for financial eval for medicaid. I will call and see what happened.
--- NOTE | 2021-02-17 09:51 | NUR ---
PT OUT AMBULATING HALLS.
--- NOTE | 2021-02-17 10:37 | NUR ---
Called and spoke with Ana Copeland, she states someone from their office documented they attempted to call on Tuesday at 1pm and called the phone in his room. Informed I will get his cell number and call it to Ana. cell number [phone] Hossein Holcomb.
--- NOTE | 2021-02-17 10:53 | NUR ---
Received call from Ana and she spoke with the director regulatory agency. She did call him yesterday, but he was unable to give any information about finances. Hossein asked them to call his daughter, and they did. Daughter stated she was to busy to complete eval. [facility] is willing to reschedule for today. Attempted to call son, but I was unable to reach.
--- NOTE | 2021-02-17 11:14 | NUR ---
Spoke with son and he will be here for [employer] call. He states he was here for 2 hours yesteray and pt. did not receive a call.
--- NOTE | 2021-02-17 12:57 | NUR ---
PT IS IN BED WITH EYES CLOSED TAKING A NAP. RESPIRATIONS EQUAL AND NONLABORED. CALL LIGHT IN REACH.
--- NOTE | 2021-02-17 13:46 | NUR ---
PATIENT IN BED RESTING WITH EYES CLOSED. VITALS AND I&O'S CHARTED. CALL LIGHT IN REACH. NO FURTHER NEEDS AT THIS TIME.
--- NOTE | 2021-02-17 14:51 | NUR ---
PT AWOKE FROM NA. AMBULATED SELF TO CHAIR. GAIT WAS STEADY. PT REQUESTS COFFEE. PT REPORTS 7/10 BACK PAIN. PRN OXYCODONE ADMISNTERED. SON TO BEDSIDE FOR VISIT. PT IS ALERT AND OREITNED. CALL LIGHT IN REACH.
--- NOTE | 2021-02-17 15:58 | NUR ---
VISITOR LEFT. PT WANTSTO TAKE A NAP NOW. CALL LIGHT IN REACH.
--- NOTE | 2021-02-17 16:55 | NUR ---
PT OUT AMBULATING HALLS INDEPENDENTLY.
--- NOTE | 2021-02-17 17:52 | NUR ---
PT NOT TOO HUNGERY FOR DINNER TONIGHT. FEELING REALLY TIRED. BACK TO BED FROM CHAIR. ABX STARTED. CALL LIGHT IN REACH.
--- NOTE | 2021-02-17 19:37 | NUR ---
REPORT RECEIVED FROM DAY SHIFT RN. PT LYING IN BED RESTING WITH EYES CLOSED, NAD. PT NOT DISTURBED AT THIS TIME. WHITE BOARD UPDATED. CALL LIGHT IN REACH.
--- NOTE | 2021-02-17 21:30 | NUR ---
PT AWAKE AND STANDING AT THE DOOR. GAIT STEADY. ALERT AND ORIENTED X 3. REQUESTING PRN FOR HEARTBURN. DR. SNEED NOTIFIED. NEW TELEPHONE ORDERS RECEIVED VERIFIED USING READ BACK METHOD. PT BACK TO BED. PRN ADMINISTERED. NO FURTHER NEEDS AT THIS TIME. CALL LIGHT IN REACH.
--- NOTE | 2021-02-17 22:40 | NUR ---
EVENING ASSESSMENT COMPLETE. MIDLINE PULSATILE FLUSHED WITH BRISK BLOOD RETURN NOTED. DRESSING INTACT. IV ABX INFUSING WNL. PRN ADMINISTERED FOR REPORTED 8/10 BACK PAIN. SBA TO BR TO VOID. GAIT STEADY. BACK TO BED, KATHIA WELL. SANDWICH BOX PROVIDED PER REQUEST. NO FURTHER NEEDS.
--- NOTE | 2021-02-18 00:12 | NUR ---
PT RESTING IN BED WITH EYES CLOSED, NAD.
--- NOTE | 2021-02-18 02:40 | NUR ---
IV ABX INFUSING PER ORDER. PT RESTING WITH EYES CLOSED, NAD.
--- NOTE | 2021-02-18 05:46 | NUR ---
PT UP TO BR INDEPENDENTLY TO VOID. PT PLEASANT AND COOPERATIVE. AT DOOR WAY OF HIS ROOM TO ASK FOR A SNACK. SNACK PROVIDED. PT BACK TO BED. VS AND I&O COMPLETE. PT QUICKLY FALLS BACK TO SLEEP. PT IN VIEW OF NURSES STATION.
--- NOTE | 2021-02-18 06:41 | NUR ---
IV ABX INFUSING ORDERED. PRN ADMINISTERED FOR 03/31 ABD/LOWER BACK PAIN. ASSISTED PT TO REPOSITION IN BED. DENIES FURTHER NEEDS.
--- NOTE | 2021-02-18 07:52 | NUR ---
PATIENT ASLEEP IN BED. BOARD UPDATED. CALL LIGHT IN REACH AND NO FURTHER NEEDS AT THIS TIME.
--- NOTE | 2021-02-18 11:00 | NUR ---
Patient resting in bed, eyes closed, respirations even and non labored. No notable distress. Personal supplies and call light.
--- NOTE | 2021-02-18 11:18 | NUR ---
Spoke with Hossein. Chyna. to feel better. Does not remember if he spoke with [facility] yesterday. Called and spoke with Ana gamble from [facility]. They rescheduled with son, Zandra, to meet for phone call today.
--- NOTE | 2021-02-18 11:21 | NUR ---
Tylenol 500mg po admin for reports of 6/10 back pain.
--- NOTE | 2021-02-18 13:24 | NUR ---
PT WAS STAND UP IN RM AT , STRETCHING HIS LEGS. PT IS MUCH MORE ALERT, HIS COGNITIVE ABILITIES SEEM MORE INTACT. HAD PLEASANT VISIT WITH PT, HE DARRELL HE HAS WALKED TODAY ALREADY. HE MENTIONED HE HAS LEARNED SOME THINGS ABOUT HIM- SELF WHILE AT [facility]. HE REALIZES HE HAS MUCH TO LIVE FOR. GAVE ENCOURAGEMENT AND BLESSING, PT THANKED ME FOR STOPPING. WILL CONTINUE TO FOLLOW
--- NOTE | 2021-02-18 13:50 | NUR ---
Oxycodone 5mg po given for reports of 5/10 back pain.
--- NOTE | 2021-02-18 14:23 | NUR ---
PATIENT RESTING IN BED INTERMITTENTLY, WATCHING TV. CALL LIGHT IN REACH AND NO FUTHER NEEDS AT THIS TIME.
--- NOTE | 2021-02-18 14:29 | NUR ---
CHECKED ON PATIENT SINCE HE WILL BE HERE UNTIL 02/23. HE IS ON A REGULAR DIET WITH DECENT APPETITE. HE SAYS HE DOESN'T EAT LARGE MEALS. HE ATE BREAKFAST AND LUNCH WELL TODAY. THERE IS ENOUGH FOODS ON THE MENU THAT HE LIKES. HE HAS NO QUESTIONS OR CONCERNS. NO NUTRITION INTERVNETION NEEDED AT THIS TIME. WILL CONTINUE TO MONITOR.
--- NOTE | 2021-02-18 14:35 | NUR ---
Patient awake, alert and oriented x3. Patient watching tv at this time. No distress or needs. Personal supplies and call light within reach.
--- NOTE | 2021-02-18 17:14 | NUR ---
Patient in bed watching tv, alert and oriented x3. Patient reports his back pain has improved. No distress noted. Dinner tray ordered. Personal supplies and call light within reach.
--- NOTE | 2021-02-18 19:22 | NUR ---
SHIFT REPORT FROM TI RYAN COMPLETE. PATIENT RESTING QUIETLY IN LOW FOWLERS POSITION, EYES CLOSED, RESPIRATIONS REGULAR AND EVEN, CALL LIGHT IN REACH. PATIENT HAS NO CARE NEEDSAT THIS TIME.
--- NOTE | 2021-02-18 20:12 | NUR ---
PATIENT BACK TO BED AFTER DOING A COUPLE LABS WALKING INDEPENDENTLY IN THE [place]. PATIENT INDEPENDENT IN ROOM AND IS IN BED WATCHING TV NOW. CALL LIGHT IN REACH AND NO CARE NEEDS AT THIS TIME.
--- NOTE | 2021-02-18 21:24 | NUR ---
PATIENT RESTING IN BED WATCHING TV. PATIENT SAYS HE IS HAVING 8/10 LOW BACK PAIN AND WAS MEDICATED FOR THIS. PATIENT'S EVENING ANTIBIOTICS WERE HUNG AND PATIENT HAD NOOTHER CARE NEEDS AT THIS TIME. CALL LIGHT IS IN REACH.
--- NOTE | 2021-02-18 23:34 | NUR ---
PATIENT RESTING QUIETLY IN BED ON HIS LEFT SIDE, EYES CLOSED, RESPIRATIONS REGULAR AND EVEN, CALL LIGHT IN REACH.
--- NOTE | 2021-02-19 01:27 | NUR ---
PATIENT RESTING QUIETLY IN LOW FOWLERS POSITION, EYES CLOSED, RESPIRATIONS REGULAR WITH A SLIGHT SNORE, CALL LIGHT IN REACH.
--- NOTE | 2021-02-19 03:19 | NUR ---
IV ABX ARE COMPLETE, LINE IS FLUSHED AND SL. PT IS RESTING WITH EYES CLOSED, RR IS EVEN AND NONLABORED. CALL LIGHT IS CLOSE.
--- NOTE | 2021-02-19 03:29 | NUR ---
PATIENT RESTING QUIETLY IN BED, EYES CLOSED, RESPIRAIONS REGULAR AND EVEN, CALL [facility] IN REACH.
--- NOTE | 2021-02-19 05:45 | NUR ---
PATIENT INFORMED ME THAT HE SLEPT WELL. PATIENT AWAKE READING WHEN I CAM IN THE ROOM. PATIENT HAS VOIDED 3 TIMES THIS SHIFT AND IS DRINKING FLUIDS AND CONTINUES ON IV ANTIBIOTICS. PATIENT HAD NO OTHER CARE NEEDS AT THIS TIME. PAIN IS CONTROLLED AND PATIENT WISHES NO FURTHER MEDICATIONS AT THIS TIME. CALL LIGHT IS IN REACH.
--- NOTE | 2021-02-19 07:30 | NUR ---
Shift report recieved from TI Torres, pt resting in bed safely w/ call light in reach. pt denies any needs at this time, whiteboard updated.
--- NOTE | 2021-02-19 08:00 | NUR ---
Pt sitting up on side of bed eating breakfast, denies any needs at this time. Call light w/ in reach.
--- NOTE | 2021-02-19 09:00 | NUR ---
Pt working w/ PT/OT at this time.
--- NOTE | 2021-02-19 09:31 | NUR ---
PER AM MEETING AND MD UPDATE, NO CHANGES IN CARE. NO CHANGES IN DISCHARGE PLAN AT THIS TIME.
--- NOTE | 2021-02-19 10:00 | NUR ---
Pt resting in bed safely, pt c/o lower back and abd pain. Pt administered PRN pain meds per request/ provider order. Morning assesment and care plan evaluation complete. Provider in room to assess pt, orders for Lumbar x-ray, diagnostic imaging department notified. VSS on RA.
--- NOTE | 2021-02-19 10:30 | NUR ---
Pt taken for Lumbar x-ray, transported via w/c.
--- NOTE | 2021-02-19 11:00 | NUR ---
Pt c/o ongoing lower back pain, hot pack placed on lower back per pt request.
--- NOTE | 2021-02-19 12:00 | NUR ---
Pt resting in bed w/ eyes closed, RR even and unlabored, call light w/ in reach.
--- NOTE | 2021-02-19 12:55 | NUR ---
Pt c/o continuing lower back pain and heartburn. Pt administered PRN Tylenol and Tums per request/provider order. Pt resting in bed safely w/ call light in reach no other needs at this time.
--- NOTE | 2021-02-19 14:15 | NUR ---
IN TO START IV OXACILLIN INFUSION. PT RESTING IN BED. AWAKE AND ALERT DENIES FURTHER NEEDS. CALL LIGHT IN REACH.
--- NOTE | 2021-02-19 18:19 | NUR ---
MEDS ADMINISTERED. PT BACK TO BED. REPORTS BACK PAIN IS "BETTER." ATE MOST OF DINNER, DENIES ABD PAIN AT THIS TIME. CALL LIGHT IN REACH. IV OXACILLIN INFUSING.
--- NOTE | 2021-02-19 19:50 | NUR ---
Resting, no distress, eyes closed, on room air. call light and fluids at bedside
--- NOTE | 2021-02-19 21:07 | NUR ---
nubain given per 5/10 back pain, drowsy, goes back to sleep, coop with assessment, on room air, RAC mid line patent. tolerated fluids well
--- NOTE | 2021-02-20 00:25 | NUR ---
out of room, wondering hallways, easily rdirectable, back to bed, voided, back to bed, tolerated well,, watm blnaket given, no c/o pain, took sips of water. call light and fluids at hands reach
--- NOTE | 2021-02-20 02:54 | NUR ---
Was up, voided, walked out of room, halfeay to room 14 and back to room, went back to bed, medicated with Oxycodone 5mg po c/o 02/28 backpain. puding and jello given, tolerated well, IV abx completed, no c/o adverse reaction. tolerating sips of fluids well, call light at bedside, turns and repositons selg.
--- NOTE | 2021-02-20 03:53 | NUR ---
UP, WALKING IN ROOM, VOIDED, BACK TO BED, NO C/O BACK PAIN, DRINKING SOFT DRINK. REPOSITIONS SELF, USED CALL LIGHT
--- NOTE | 2021-02-20 06:18 | NUR ---
Pt has been awake off and on this shift. slow response, easily redirectable. Ambulated in room and out to nursing station, room 114 and back, tolerated well. On room air, RAC midline patent, receiving Oxacillin abx, tolerating well. Turns and repositions self in bed. Was medicted with Bentyl and Oxycodone 1X each per back pain, effective. tolerating jello,puding, crackers and soda well, fresh water at bedside. uses call light. Independent. slightly confused to situation but easily redirectable.
--- NOTE | 2021-02-20 06:37 | NUR ---
Pt went walking towars front Lobby and back w/o nurse noticiing. Tolerated fair. c/o back pain, medicated with Bentyl po. Voided small amount medium yellow urine . Backto bed and started snoring before his head hit the pillow. Awakes easily, coop with vitals and IV abx restarted. RAC midline patent. On room air.
--- NOTE | 2021-02-20 07:22 | NUR ---
REPORT RECIEVED FROM NIGHT ALESSIA LUKE.
--- NOTE | 2021-02-20 07:23 | NUR ---
Pt ambulated down to lower station and back, back to bed, tolerated well.
--- NOTE | 2021-02-20 07:38 | NUR ---
MORNING ASSESSMENT DONE. PATIENT ENCOURAGED TO TAKE 0800 MEDS, AND EVENTUALLY DID SO. ASSESSMENT IS AT BASELINE. PATIENT REPORTS CHRONIC 7/10 LOWER BACK PAIN AND FELL ASLEEP DURING QUESTION. MENTATION IS HALLUCINATORY AND IS REPORTEDLY PATIENT'S BASELINE. PATIENT WANDERS IN HALLWAYS, EASILY REDIRECTED BACK TO ROOM. NO NAUSEA NOTED. PATIENT IS SALINE LOCKED AND RESTING IN BED AT THIS TIME.
--- NOTE | 2021-02-20 08:12 | NUR ---
PATIENT SITTING UP TO EAT BREAKFAST. 5MG OXYCODONE GIVEN FOR 8/10 LOWER BACK PAIN.
--- NOTE | 2021-02-20 10:13 | NUR ---
PATIENT GIVEN MORNING MEDICATIONS AND IS BACK TO SLEEP.
--- NOTE | 2021-02-20 12:01 | NUR ---
PATIENT SLEEPING WITH REGULAR RESPIRATIONS.
--- NOTE | 2021-02-20 13:22 | NUR ---
CHECKED ON PATIENT. PATIENT WAS SLEEPING.
--- NOTE | 2021-02-20 14:20 | NUR ---
PATIENT UP TO VOID, EAT COOKIE AND BACK TO BED. IV OXACILLIN IS INFUSING FOR 30 MINUTES.
--- NOTE | 2021-02-20 14:33 | NUR ---
PER DR. CARRINGTON AND STAFF NO CHANGES IN DISCHARGE PLAN AT THIS TIME. PATIENT TO REMAIN ADMITTED FOR IV ABX UNTIL 02/24/21.
--- NOTE | 2021-02-20 17:40 | NUR ---
PATIENT SITTING UP TO SIDE OF BED TO EAT DINNER. IV ABX INFUSING FOR 30 MINUTES. ORAL SEROQUEL AND RIFAMPIN GIVEN. PATIENT IMMEDIATELY LAYING BACK DOWN IN BED.
--- NOTE | 2021-02-20 19:36 | NUR ---
resting, eyes closed, laying on R side, turns and repositions self. RAC Midline intact. coop with assessment.
--- NOTE | 2021-02-20 21:35 | NUR ---
IN TO GET VITALS, PT HAS NOT TOUCHED DINNER TRAY YET, PT RECENTLY VOIDED SMALL AMT
--- NOTE | 2021-02-20 21:40 | NUR ---
awake, walking in room, voided, Back to bed, coop with assessment. IVF infusing RAC, patent. picking at dinner tray. fluids at bedside
--- NOTE | 2021-02-21 00:01 | NUR ---
resting, no distress, on room air, turns and repositions self. call light at bedside
--- NOTE | 2021-02-21 02:14 | NUR ---
Resting, no distress, Midline IV patent. used urinal, call light and fluids at bedside
--- NOTE | 2021-02-21 03:12 | NUR ---
OUT WALKING TOEARDS [facility] STATION, C/O BACK PAIN 02/28, MEDICATED WITH BENTYL. BACK TO BED. PT HAS SLEPT WELL
--- NOTE | 2021-02-21 03:38 | NUR ---
PT UP AT DOOR, ASKING ABOUT TIME, ASKED TO GET [place] WRAP FIXED, NO FURTHER NEEDS, PT REDIRECTED AND PUTS SELF BACK TO BED
--- NOTE | 2021-02-21 05:50 | NUR ---
resting, awakens easily no distress, call light at bedside
--- NOTE | 2021-02-21 06:15 | NUR ---
IN TO GET VITALS, PT HAS NEW SHIRT ON, CLEAN SOME URINE OFF THE FLOOR, NO FURTHER NEEDS AT THIS TIME
--- NOTE | 2021-02-21 06:22 | NUR ---
Pt has slept this shift, currently awake, was walking in room, changed clothes, then was looking for "more clothes from downstairs" and his wallet that he probably left at the bar or [employer]", pt instructed that he has been at the hospital for several days, he has his phone, clothes with him but I have not seen a wallet. " Oh OK I probably left it at home" stated, in bed, iv abx infusing through RAC midline. pleasntly confused, easily redirectable. voiding QS. tolerating soda drinks and juices well. has a 99 temp at begining of shift. afebrile at this time.
--- NOTE | 2021-02-21 07:30 | NUR ---
Shift report recieved from TI Ortega. Pt resting in bed safely w/ call light in reach, visitor in room. Pt denies any needs at this time, whiteboard updated.
--- NOTE | 2021-02-21 08:46 | NUR ---
Pt sitting up on side of bed eating breakfast. Pt denies any needs ath this time. Morning assessment completed, VSS on RA.
--- NOTE | 2021-02-21 09:06 | NUR ---
STONGLY ENGOURAGED AND ATTEMPTED TO GET PATIENT TO AMBULATE IN HALLWAY, HE REFUSED AND WENT BACK TO SLEEP.
--- NOTE | 2021-02-21 10:55 | NUR ---
IV abx infusing per order, pt resting in bed safely w/ call ligh in reach. Pt encouraged to ambulate but pt states hes too tired.
--- NOTE | 2021-02-21 11:54 | NUR ---
Pt sitting up on side of bed eating lunch, window curtains opened and lights turned on, pt encourage again to ambulate out in hallway after eating lunch.
--- NOTE | 2021-02-21 12:12 | NUR ---
TI Rodriguez assisted pt to ambulate in hallway, SBA, pt walked 1 full lap. Pt now sitting on side of bed, attmpting to eat the rest of his lunch.
--- NOTE | 2021-02-21 14:00 | NUR ---
IV abx infusing per provider order, pt resting in bed safely w/ call light in reach, no needs at this time.
--- NOTE | 2021-02-21 15:24 | NUR ---
Pt showered independently, bed linens changed, and room tidied. Pt encouraged to ambulate but pt states he's wiped out. Will reapproach later for ambulation.
--- NOTE | 2021-02-21 17:47 | NUR ---
Pt resting in bed safely w/ call light in reach. Pt denies any needs at this time. IV abx infusing per provider order.
--- NOTE | 2021-02-21 18:11 | NUR ---
Pt has slept most of shift, and despite multiple attempts of encouraging pt only ambulated 1x. Pt did shower independently. Pt has not eaten much today and has no BM.
--- NOTE | 2021-02-21 19:31 | NUR ---
REPORT RECEIVED FROM DAY SHIFT RN. PT TO RN STATION REQUESTING TUMS AND PAIN MEDICATION FOR ABD/BACK PAIN. PRN PROVIDED PER ORDER. PT IN BED. DENIES FURTHER NEEDS. CALL LIGHT IN REACH. WHITE BOARD UPDATED.
--- NOTE | 2021-02-21 22:14 | NUR ---
EVENING ASSESSMENT COMPLETE. MIDLINE PULSATILE FLUSH WITH 10 ML NS. BRISK BLOOD RETURN NOTED. IV ABX INFUSING PER ORDER. PT DROWSY, AWAKENS EASILY WHEN SPOKEN TO. DISORIENTED TO TIME. REPORTS BACK/ABD PAIN IMPROVED AFTER PRN ADMINISTRATION. VS AND I&O COMPLETE. PT DENIES NEEDS AT THIS TIME. CALL LIGHT IN REACH. BED ALARM ON FOR SAFETY DURING IV ABX INFUSION.
--- NOTE | 2021-02-21 22:45 | NUR ---
ABX COMPLETE, LINE HAS RAPID BLOOD RETURN FLUSHES WELL, S/L. SITE DRESSING IS INTACT AND SITE IS WNL ON ASSESSMENT. PT SLEEPING AT THIS TIME, SNORING NOTED, RR EVEN AT 20 BPM, NO DISTRESS NOTED
--- NOTE | 2021-02-22 00:13 | NUR ---
PT IN BED RESTING ON RIGHT SIDE WITH EYES CLOSED. RESPIRATIONS EVEN. NO APPARENT DISTRESS.
--- NOTE | 2021-02-22 02:23 | NUR ---
PT IN BED RESTING ON BACK WITH EYES CLOSED. RESPIRATIONS EVEN. IV ABX INFUSING PER ORDER. BED ALARM ON FOR SAFETY DURING INFUSION.
--- NOTE | 2021-02-22 06:01 | NUR ---
PT UP TO BR TO VOID. GAIT STEADY. BACK TO BED, KATHIA WELL. IV ABX INFUSING PER ORDER. PRN FOR PAIN ADMINISTERED FOR 8/10 BACK PAIN. VS AND I&O COMPLETE. SNACK AND FRESH WATER PROVIDED. PT DENIES FURTHER NEEDS. CALL LIGHT IN REACH.
--- NOTE | 2021-02-22 07:30 | NUR ---
Shift report recieved from TI Velasquez. Pt resting in bed safely w/ eyes closed, RR even and unlabored. CAll light w/ in reach.
--- NOTE | 2021-02-22 08:25 | NUR ---
PT ENCOURAGED TO WAKE UP AND SIT IN CHAIR FOR BREAKFAST, AFTER SEVERAL ATTEMPTS PT SBA TO CHAIR. PT DENIES OTHER NEEDS AT THIS TIME.
--- NOTE | 2021-02-22 11:05 | NUR ---
LABS DRAWN FROM MIDLINE, MIDLINE SALINE LOCKED. LABS DELIVERED TO LAB. PT TO XRAY.
--- NOTE | 2021-02-22 11:20 | NUR ---
Pt returned from x-ray, resting in bed safely w/ call light in reach. Pt c/o being cold, warm blanket given, no other needs at this time.
--- NOTE | 2021-02-22 12:57 | NUR ---
Pt resting in bed w/ eyes closed, RR even and unlabored. Pt woken up and offered lunch, but pt declined stating he is not hungry and went back to sleep. Call light in reach, no needs at this time.
--- NOTE | 2021-02-22 14:11 | NUR ---
Lactulose, mag rider and po potassium given per order, oxacillin infusion on standby for incompatability with magnesium. Pt restinng in bed, discussed walking in [place] after antibiotic infusion completed. Pt requesting orange juice, kitchen called. Pt denies other needs at this time.
--- NOTE | 2021-02-22 16:00 | NUR ---
Pt encouraged to ambulate but pt declined stating he was too tired. Pt c/o of abd pain, pt given PRN TUMS and Bently per request/provider order. No other needs at this time.
--- NOTE | 2021-02-22 18:08 | NUR ---
Pt c/o nause, PRN zofran given per request/provider order. Pt c/o abd cramping and feels the urge to have a BM but has been unsuccesful, call to provider for bowel elimination protocol.
--- NOTE | 2021-02-22 18:49 | NUR ---
Pt has slept throughout the shift, and had little appetite but has had sufficient fluid intake and drank an ensure. IV abx infusing per provider. Pt had a total of 5 BMs this evening.
--- NOTE | 2021-02-22 19:25 | NUR ---
REPORT RECEIVED FROM DAY SHIFT RN. PT LYING IN BED WATCHING TV. DENIES NEEDS. WHITE BOARD UPDATED. CALL LIGHT IN REACH.
--- NOTE | 2021-02-22 22:14 | NUR ---
EVENING ASSESSMENT COMPLETE. SCHEDULED MEDS ADMINISTERED PER ORDER. IV ABX INFUSING WNL. MIDLINE PULSATILE FLUSH WITH NS. BRISK BLOOD RETURN NOTED. DRESSING INTACT. PRN ADMINISTERED FOR 8 ABD/BACK PAIN. TEMP NOTED TO BE ELEVATED. IS PROVIDED AND USED. WITH ENCOURAGEMENT PT UP TO AMB ONE LAP AROUND NURSING UNIT WITH SBA. GAIT STEADY. BACK TO BED, KATHIA WELL. PT DENIES FURTHER NEEDS. CALL LIGHT IN REACH. PT IN VIEW OF NURSES STATION.
--- NOTE | 2021-02-23 00:24 | NUR ---
PT RESTING IN BED WITH EYES CLOSED, NAD.
--- NOTE | 2021-02-23 02:06 | NUR ---
IV ABX INFUSING PER ORDER. MIDLINE PULSATILE FLUSH 10 ML NS. BRISK BLOOD RETURN NOTED. ORAL TEMP 98.4. BED ALARM PLACED FOR IV INFUSION.
--- NOTE | 2021-02-23 05:04 | NUR ---
PT UP TO BR INDEPENDENTLY TO VOID 900 ML ORANGE COLORED URINE. BACK TO BED, KATHIA WELL. VS AND I&O COMPLETE. PT REMAINS AFEBRILE, ORAL TEMP 98.5. PT DENIES FURTHER NEEDS. CALL LIGHT IN REACH.
--- NOTE | 2021-02-23 06:09 | NUR ---
IV ABX INFUSING PER ORDER. PT RESTING WITH EYES CLOSED. RESPIRATIONS EVEN. NO APPARENT DISTRESS.
--- NOTE | 2021-02-23 07:37 | NUR ---
Patient resting in bed, eyes closed, respirations even and non labored. Patient has no distress. Breakfast order has been placed for the patient. Personal supplies and call light within reach.
--- NOTE | 2021-02-23 08:13 | NUR ---
Tylenol 500mg po admin for reports of chronic lower back pain.
[2021-02-23] MEDS ORDERED: XIFAXAN550 MG PO (08:20)
[2021-02-23] MEDS ORDERED: NICOTINE LOZENGE4 MG BUCCAL (08:21)
[2021-02-23] MEDS ORDERED: OXYCODONE HCL5 MG PO (08:21)
[2021-02-23] MEDS ORDERED: LACTULOSE20 GM/30 M PO (08:22)
[2021-02-23] MEDS ORDERED: MAG-OXIDE400 MG PO (08:22)
[2021-02-23] MEDS ORDERED: VITAMIN B-1100 MG PO (08:23)
--- NOTE | 2021-02-23 09:35 | NUR ---
OVER TO THE FLOOR, PHARMACY IN PATIENT ROOM. PATIENT AWARE OF PLAN TO DISCHARGE AFTER AM DOSE OF ABX. PATIENT ABULATORY IN ROOM. [place] ASSISTANT CURATOR CURRENTLY ATTEMPTING TO CONTACT PATIENTS SISTER TO FIND PATIENT SOME SHOES. PER PATIENT AND STAFF PATIENT TO DISCHARGE AT APPROX 11 AM POST ABX.
--- NOTE | 2021-02-23 09:54 | NUR ---
PATIENT RESTING IN BED, VITALS AND I&O'S CHARTED. HEAT PACK PROVIDED PER PATIENT REQUEST. PATIENT PERSONAL BELONGINGS BAGGED UP TO PREPARE FOR PATIENT DISCHARGE. CALL LIGHT IN REACH AND NO FURTHER NEEDS AT THIS TIME.
== END 2021-02-23 10:40 | disposition home or self-care (01) | DRG 871 ==
LOC: ED 08:42 → MS 18:32 → CCU 18:32 → MS 02-09 14:10
PROVIDERS: ADMIT Internal Medicine; ATTEND Internal Medicine
PROC: 05HB33Z Insertion of Infusion Device into Right Basilic Vein, Percutaneous Approach (ICD-10-PCS; principal; 2021-02-12 15:30)
DX: R78.81 Bacteremia (principal); G93.41 Metabolic encephalopathy; F10.239 Alcohol dependence with withdrawal, unspecified; D68.4 Acquired coagulation factor deficiency; K76.6 Portal hypertension; E22.2 Syndrome of inappropriate secretion of antidiuretic hormone; K82.1 Hydrops of gallbladder; B95.61 Methicillin susceptible Staphylococcus aureus infection as the cause of diseases classified elsewhere; Z20.822 Contact with and (suspected) exposure to COVID-19; K72.90 Hepatic failure, unspecified without coma; K70.30 Alcoholic cirrhosis of liver without ascites; F17.200 Nicotine dependence, unspecified, uncomplicated; G47.30 Sleep apnea, unspecified; D73.1 Hypersplenism; D69.59 Other secondary thrombocytopenia; R10.84 Generalized abdominal pain; K59.00 Constipation, unspecified; E83.39 Other disorders of phosphorus metabolism; K80.20 Calculus of gallbladder without cholecystitis without obstruction; Y90.3 Blood alcohol level of 60-79 mg/100 ml
CPT/HCPCS: 36415; 36569; 51702; 71046; 72110; 74018; 74177; 76705; 80048; 80053; 80076; 81001; 82140; 83605; 83690; 83735; 83930; 83935; 84100; 85025; 85610; 85651; 86431; 87040; 87077; 87186; 93306; 94760; 97110; 97116; 97162; 97165; 97530; 97535; A9270; C1751; C9113; C9803; J0696; J1170; J1885; J2270; J2405; J2700; J3360; J3411; J3475; J7030; J7060; J7121; Q9967; U0003

== ENCOUNTER 2021-03-10 13:26 | Emergency (ER) | payer OTHER ==
[~2021-03-10] VITALS: Ht 180.3 cm; Wt 104.3 kg
[~2021-03-10 13:26] MED LIST changes: +LACTULOSE20 GM/30 M PO; +MAG-OXIDE400 MG PO; +NICOTINE LOZENGE4 MG BUCCAL; +OXYCODONE HCL5 MG PO; +VITAMIN B-1100 MG PO
--- OUTSIDE RECORDS SUMMARY | 2021-03-10 13:30 | XMS ---
PreManage Notification: SACHI MURPHY Security Occupational Therapy Technician Events No recent Security Events currently on file [place] [facility] [place] CHRIS LAMAS Packaging Design Engineer Current RICKY Cavanaugh PHONE: [phone] JEAN BARAHONA Internal Medicine Current PHONE: [phone] MORIS SINGLETON Nurse Practitioner Current PHONE: [phone] CAMILA CM Nurse Practitioner: Current PHONE: [phone] KEYUR WALTERS Internal Medicine Current PHONE: [phone] BRITTANEY MARTÍNEZ Internal Medicine Current PHONE: [phone] NANETTE [facility] Current PHONE: [phone] TAMMI PAIGE [facility] Current PHONE: [phone] MIKE [facility] 07/14/2020[facility] PHONE: [phone] Vania has no Care Guidelines for this patient. Care History Medical/Surgical 07/14/2020 [facility] - PATIENT IS [facility] ELIGIBLE, \T\middot;\T\nbsp; PLEASE REFER PATIENT TO [facility] FOR NON EMERGENT MEDICAL NEEDS. \T\middot;\T\nbsp; [facility] CAN SEE PATIENTS SAME DAY FOR APTS IF PATIENT CALLS FIRST THING IN THE MORNING. 05/14/2020 [facility] - [facility] IS UNABLE TO CONTACT PATIENT- PATIENT WOULD BENEFIT FROM [facility]. - \T\middot;\T\nbsp; PATIENT WOULD BENEFIT FROM [facility]-PLEASE DISCUSS \T\middot;\T\nbsp; PLEASE CONTACT [facility]- IF PATIENT ACCEPTS SERVICES- [phone] \T\middot;\T\nbsp; [facility] CAN PROVIDE PATIENT WITH [place] TEACHER AND HELP WITH [employer] E.D. VISIT COUNT (12 MO.) 5 [facility]. TOTAL 5 NOTE: Visits indicate total known visits. 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 - Cellulitis of left lower limb 04/16/2020 11:42 [facility] TYPE: Emergency COMPLAINT: - L LEG SWOLLEN INPATIENT VISIT TRACKING (12 MO.) 02/06/2021 18:32 [facility] TYPE: Medical Surgical COMPLAINT: - ABD PAIN DIAGNOSES: - Calculus of gallbladder without cholecystitis without obstruction - Hydrops of gallbladder - Portal hypertension - Hypersplenism - Constipation, unspecified - Alcoholic cirrhosis of liver without ascites - Hepatic failure, unspecified without coma - Methicillin susceptible Staphylococcus aureus infection as the cause of diseases classified elsewhere - Acquired coagulation factor deficiency - Other secondary thrombocytopenia - Other disorders of phosphorus metabolism - Sleep apnea, unspecified - Hepatic failure, unspecified without coma - Metabolic encephalopathy - Acquired coagulation factor deficiency - Generalized abdominal pain - Blood alcohol level of 60-79 mg/100 ml - Alcohol dependence with withdrawal, unspecified - Nicotine dependence, unspecified, uncomplicated - Hypersplenism - Blood alcohol level of 60-79 mg/100 ml - Sleep apnea, unspecified - Portal hypertension - Constipation, unspecified - Calculus of gallbladder without cholecystitis without obstruction - Alcohol dependence with withdrawal, unspecified - Bacteremia - Nicotine dependence, unspecified, uncomplicated - Syndrome of inappropriate secretion of antidiuretic hormone - Alcoholic cirrhosis of liver without ascites - Metabolic encephalopathy - Syndrome of inappropriate secretion of antidiuretic hormone - Methicillin susceptible Staphylococcus aureus infection as the cause of diseases classified elsewhere - Hydrops of gallbladder - Other secondary thrombocytopenia - Other disorders of phosphorus metabolism - Bacteremia 07/12/2020 16:[address] [facility] [place] TYPE: Medical Surgical COMPLAINT: - ALCOHOL [...] cirrhosis of liver without ascites - Other jail (current) drug therapy - Alcoholic cirrhosis of liver without ascites - Nicotine dependence, cigarettes, uncomplicated - Other jail (current) drug therapy - Sepsis due to Methicillin resistant Staphylococcus aureus 04/16/2020 16:[address] [facility] TYPE: Medical Surgical COMPLAINT: - SEPSIS CELLULITIS DIAGNOSES: - Alcoholic hepatitis without ascites - Other jail (current) drug therapy - Hypo-osmolality and hyponatremia - Nicotine dependence, cigarettes, uncomplicated - Cellulitis of left lower limb - Alcoholic hepatitis without ascites - Contact with and (suspected) exposure to other viral communicable diseases - Alcoholic cirrhosis of liver without ascites - Contact with and (suspected) exposure to other viral communicable diseases - Other jail (current) drug therapy - Hypo-osmolality and hyponatremia - Alcohol dependence with withdrawal, unspecified - Alcohol dependence with withdrawal, unspecified - Alcoholic cirrhosis of liver without ascites - Sepsis, unspecified organism - Nicotine dependence, cigarettes, uncomplicated - Cellulitis of left lower limb [email or web address]
--- NOTE | 2021-03-11 16:00 | EKG ---
[facility] [address] [place], [place] [address] Signed Sinus tachycardia Otherwise normal ECG When compared with ECG of 23-OCT-2019 17:39, No significant change was found Confirmed by KYLE VENCES MD ([id number]) on 03/11/2021 4:00:18 PM Electronically Signed By: KYLE VENCES MD 03/11/21 1600 PATIENT NAME: SACHI MURPHY LUCY Electrocardiogram DATE OF : 59 PHYSICIAN: KYLE VENCES MD REPORT #: [id number] REPORT IS CONFIDENTIAL AND NOT TO BE RELEASED WITHOUT AUTHORIZATION
== END 2021-03-10 16:17 | disposition short-term general hospital (02) ==
LOC: ED 13:26
DX: I60.9 Nontraumatic subarachnoid hemorrhage, unspecified (principal); E11.649 Type 2 diabetes mellitus with hypoglycemia without coma; N19 Unspecified kidney failure; D69.6 Thrombocytopenia, unspecified; Z20.822 Contact with and (suspected) exposure to COVID-19; F17.200 Nicotine dependence, unspecified, uncomplicated; Z79.899 Other long term (current) drug therapy
CPT/HCPCS: 51702; 70450; 70496; 70498; 71045; 80053; 82140; 82803; 84484; 85007; 85025; 85610; 85730; 93005; 93010; 99285-25; C9803; G0480; J1953; J2060; J3430; J7030; J7168; Q9967; U0003